=== PATIENT | male | born 1945 | race Caucasian/White ===

== ENCOUNTER → 2016-08-19 | Outpatient (CLI) | payer OTHER, MEDICARE ==
[~2016-08-19] MED LIST: ALBUAER2 INH; ASPI81TA28 PO; CHOL100040 PO; EFFSR75 PO; FLM4 PO; FLV1 PO; FRS/40 PO; LISI-787 PO; LSX40 PO; MCRK20 PO; MOME100A INH; MOME200A INH; MTH25 PO; OXGN; PANT40TA PO; POTASSIUM CHLORIDE PO; PRD20 PO; PRED10TA PO; PRED20TA2 PO; SIMV40TA4 PO; SPIR1TAB72 PO; SPIR25TA PO; SPRIN/30 INH; TIOTCAP INH; TRAZ50TA35 PO; VENL150T33 PO; VNTHFA/IN INH; ZCR40 PO
--- NOTE | 2016-08-20 06:03 | PAP/PSG TECHNICIAN REPORT ---
[facility] [employer] Polysomnogram Report Study name: None Report date: 08/20/2016 Study date: 08/19/2016 Referring Physician: Santo Kaba M.D. Name: CATERINA JUAREZ Interpreting Physician: Santo Kaba M.D. 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 Sex: Male Age: 71 StudyType: PSG Weight: 302 lbs Height: 71 years, Height 6' 1" Neck Circum:19.5inches BMI: 39.84 Medications: ASA 81mg, Dulera 200-5 mcg/act, Prednisone 1mg, and 5 mg, Simvastatin 40mg, Spiriva 40mg, Spironolactone-HCTZ 25-25mg, Sulfamethoxazole-Trimethoprin 800-160mg, [place] sulosin HCL 0.4mg, Venlafaxine HCL 75 mg, and 150mgVentolin HFA Patient History Study started on room air and bi-pap with an IPAP+83UUL2M and EPAP+8CMH2O in room #6( last study he had 3 obstructive apneas on cpap 7 and that is why I started at this setting). He has a failed split study here on 06/15/16. He was titrated to cpap +[id number] but still had an AHI of 22 and hypoxemia. His neck circ=19.5inches. Parameters Monitored NPSG: E1-M2, E2-M1, Fp1-M2, Fp2-M1, F3-M2, F4-M2, F4-M1, C3-M2, C4-M2, C4-M1, O1-M2, O2-M2, O2-M1, T3-M2, T4-M1, P3-M2, P4-M1, CHIN1, CHIN2, HR, EKG, Legs, PFLOW, SNOR, FLOW, CFLOW, Tidal Volume, THOR, ABDO, SpO2, PLTH, CPRESS, ETCO2 Wave, ETCO2, pH Sleep Architecture Sleep Stages Time at Lights Off 10:16:23 PM STAGES Time (min.) TST (%) Time at Lights On 5:47:53 AM Wake 95.5 -- Total Recording Time (TRT) 451.50 min. N1 13.5 4 Total Sleep Period (TSP) 438.5 min. N2 176.0 49 Total Sleep Time (TST) 356.0min. N3 70.5 20 Awake Time 95.5 min. REM 96.0 27 Wake after Sleep Onset 82.5 min. Sleep Efficiency (SE) 79 % Sleep Onset Latency (SANDRA) 13.0 min. Number of Stage 1 Shifts None Awakenings 11 Stage Changes 66 Number of REM periods 7 REM 96.0 27 REM Latency 51.5 min. NREM 260.0 73 Body Position Analysis Supine Right Left Side Prone Vertical Total Sleep Time (min.) 451.3 0.0 0.0 0.00 0.0 0.2 Total Sleep Time (%) 100% 0% 0% 0 0% N/A% Total Sleep Time REM (min.) 96.0 0.0 0.0 None 0.0 0.0 Total Sleep Time NREM (min.) 260.0 0.0 0.0 None 0.0 0.0 Intermittent Wake (min.) 95.3 0.0 0.0 None 0.0 0.2 Total Sleep Period (%) 100% None None None None None Arousals Myoclonus (PLM) * Events Count Index Events Count Index Spontaneous 16 3 Events Awake (PLMW) 130 81.7 Respiratory 19 3.7 Events Asleep w/ Arousal (PLMA) 9 1.5 PLM 9 2 Events Asleep w/o Arousal (PLMS) 90 15.2 Snoring 7 1 Total Asleep 99 16.7 Total 51 9 Total 229 30 Respiratory Analysis * CA OA MA CH H RERA Total Count 13 14 2 0 105 1 134 Index 2.2 2.4 0.3 0 17.7 0 22.8 Mean Duration 15.6 18.9 24.9 0.00 21.1 25.3 20.4 Longest Duration 28.0 26.9 25.1 0.00 25.1 25.3 36.6 Respiratory Event Summary Total Supine ~Supine Right Left Prone REM NREM Apneas Count 29 29 N/A N/A N/A N/A 1 28 Index 4.9 5 N/A N/A N/A N/A 1 6 Hypopneas (4% Desat) Count 105 105 N/A N/A N/A N/A 6 99 Index 17.7 17.7 N/A N/A N/A N/A 3.8 22.8 Apneas & All Hypopneas Count 134 134 N/A N/A N/A N/A 7 127 Index 22.6 23 N/A N/A N/A N/A 4.4 29.3 Respiratory Events (Consulting Services Manager+All Hyp+RERA) Count 134 135 N/A N/A N/A N/A 7 127 Index 22.8 23 N/A N/A N/A N/A 4.4 29.5 Respiratory Related Arousal Count 19 135 N/A N/A N/A N/A 3 19 Index 3.7 4 N/A N/A N/A N/A 2 4 Snoring Analysis Supine Right Left Prone REM NREM Total Snore duration 24.2 min Snores count 899 N/A N/A N/A 65 834 899 Snore mean duration 1.6 Sec Snores index 152 N/A N/A N/A 40.6 192.5 151.5 TST with snoring (%) 6.8% Desaturation Event Summary: Minimum %SpO2 Event Count Mean/Min/Max Duration(sec.) Desaturation Index % Time In Bed > 90 92 24.4 / 5.3 / 60.0 72.4 18.5 86 - 90 152 23.4 / 4.8 / 60.0 52.0 42.5 81 - 85 77 24.7 / 7.3 / 57.5 31.5 35.5 76 - 80 4 11.6 / 5.8 / 20.0 17.3 3.4 71 - 75 1 5.8 / 5.8 / 5.8 89.4 0.2 66 - 70 0 N/A 0.0 0.0 61 - 65 0 N/A 0.0 0.0 56 - 60 0 N/A 0.0 0.0 51 - 55 0 N/A 0.0 0.0 < 50 0 N/A 0.0 0.0 Total REM NREM Awake <50% 0.0 min. 0.0 min. 0.0 min. 0.0 min. 51 - 60% 0.0 min. 0.0 min. 0.0 min. 0.0 min. 61 - 70% 0.0 min. 0.0 min. 0.0 min. 0.0 min. 71 - 80% 14.5 min. 4.1 min. 9.0 min. 1.4 min. 81 - 90% 321.9 min. 61.2 min. 214.7 min. 46.0 min. 91 - 100% 76.3 min. 30.5 min. 34.1 min. 11.6 min. Average 87 88 86 88 Minimum SpO2 71 71 77 74 Desaturation Event Index 35.3 19.4 48.5 16.3 # Desat. Events below 89% 239 26 189 24 Time(%) with Saturation below 89% 68.2 13.4 46.0 8.9 Time(min.) with Saturation below 89% 281.6 55.4 189.7 36.5 Time (mins) REM (mins) NREM (mins) % of TST SpO2 Below 90% 235 31 N204 74.7 SpO2 Below 88% 83 0 0 62 Heart Rate Analysis Min (bpm) Max (bpm) Average (bpm) Awake 37 237 95 NREM 38 127 86 REM 51 110 84 Overall 38 127 85 Supplemental O2 Values Minimum O2 level: None Value Start Time End Time Farmworker Fruit Comments Mr. Juarez slept in the supine position with the head of the bed elevated. Tachycardia and some limb movements noted. No bruxism noted. PAP initiated at an IPAP of +12 CMH2O and an EPAP of +8CMH2O up-titrated to a level of: IPAP +24 CMH2O, EPAP + 14 CMH20 and a rate of 10 BPM. A large Simplus full face mask by F&P was used during titration, He awoke to use the restroom twice during the night. and awoke three times to take the mask off for a few minutes because of panic attacks. He kept adjusting the head of the bed up then down then up then down. He stated that he slept fair. The final report will be interpreted and signed by a sleep physician. The completed physician report will then be placed in the patient medical record. Therapy Event: Therapy (cm H20) 07/23 1329/03 15 1601/06 Total Time at Pressure (min.) 31.6 19.5 23.7 65.2 14.3 16.0 28.9 TST at Pressure (min.) 18.6 19.5 23.7 52.7 13.8 16.0 28.9 # Periods 1 1 1 1 1 1 1 Sleep Onset (min.) 13.0 0.0 0.0 0.0 0.0 0.0 0.0 REM Onset (min.) N/A N/A 13.4 0.0 N/A N/A N/A Sleep Efficiency % 58 100 100 80 96 100 100 Wakefulness (%) 41.1 0.0 0.0 19.2 3.5 0.0 0.0 Wakefulness (min.) 13.0 0.0 0.0 12.5 0.5 0.0 0.0 NREM 1 (%) 4.7 0.0 2.1 4.6 7.0 3.1 0.0 NREM 1 (min.) 1.5 0.0 0.5 3.0 1.0 0.5 0.0 NREM 2 (%) 54.2 81.3 0.0 17.7 89.5 96.9 21.5 NREM 2 (min.) 17.1 15.9 0.0 11.6 12.8 15.5 6.2 NREM 3 (%) 0.0 18.7 56.3 0.0 0.0 0.0 78.5 NREM 3 (min.) 0.0 3.6 13.4 0.0 0.0 0.0 22.7 REM (%) 0.0 0.0 41.6 58.5 0.0 0.0 0.0 REM (min.) 0.0 0.0 9.9 38.1 0.0 0.0 0.0 # Arousals 2 1 1 13 3 5 0 Arousal Index 6.4 3.1 2.5 14.8 13.1 18.8 0.0 # Snore 40 164 88 34 36 79 87 Snore Index 128.7 504.6 222.7 38.7 156.8 297.0 180.5 AHI 9.7 9.2 12.7 15.9 87.1 60.2 20.7 AHI Supine 9.7 9.2 12.7 15.9 87.1 60.2 20.7 AHI Non-Supine N/A N/A N/A N/A N/A N/A N/A NREM AHI 9.7 9.2 8.7 49.4 87.1 60.2 20.7 REM AHI N/A N/A 18.3 3.1 N/A N/A N/A RDI 12.9 9.2 12.7 15.9 87.1 60.2 20.7 # Obstructive 0 0 1 4 0 4 1 # Central Ap 0 1 0 1 1 1 1 # Mixed 0 0 0 0 0 2 0 # Hypopneas 3 2 4 9 19 9 8 RERAS 1 0 0 0 0 0 0 Total Respiratory Events 4 3 5 14 20 16 10 Time Below SpO2 89.00% (min.) 18.5 19.2 22.8 46.8 9.0 13.6 28.7 Mean NREM SpO2 (%) 85 85 84 85 87 86 83 Mean REM SpO2 (%) N/A N/A 82 86 N/A N/A N/A Mean Sleep SpO2 (%) 85 85 83 86 87 86 83 Min NREM SpO2 (%) 81 77 77 78 81 79 78 Min REM SpO2 (%) N/A N/A 71 79 N/A N/A N/A Position Supine (min.) 18.6 19.5 23.7 52.7 13.8 16.0 28.9 Position Non-supine (min.) 0.0 0.0 0.0 0.0 0.0 0.0 0.0 LM Index Sleep 6.4 3.1 12.7 33.0 26.1 22.6 6.2 LM Index NREM 6.4 3.1 4.3 37.1 26.1 22.6 6.2 LM Index REM N/A N/A 24.4 31.5 N/A N/A N/A Mean Heart Rate (bpm) 80 86 86 82 87 91 92 Min Heart Rate (bpm) 51 54 51 52 38 47 49 Therapy (cm H20) 04/0714 Total Time at Pressure (min.) 60.9 24.2 26.9 56.6 42.1 41.6 TST at Pressure (min.) 42.4 23.7 24.4 10.1 40.6 41.6 # Periods 1 1 1 1 1 1 Sleep Onset (min.) 0.0 0.0 0.0 0.0 0.0 0.0 REM Onset (min.) 14.8 N/A N/A N/A N/A 4.6 Sleep Efficiency % 69 97 90 17 96 100 Wakefulness (%) 30.4 2.1 9.3 82.1 3.6 0.0 Wakefulness (min.) 18.5 0.5 2.5 46.5 1.5 0.0 NREM 1 (%) 4.1 0.0 1.9 2.6 1.2 4.8 NREM 1 (min.) 2.5 0.0 0.5 1.5 0.5 2.0 NREM 2 (%) 30.5 60.8 38.6 15.2 95.2 11.2 NREM 2 (min.) 18.6 14.7 10.4 8.6 40.1 4.6 NREM 3 (%) 13.6 37.1 50.2 0.0 0.0 0.0 NREM 3 (min.) 8.3 9.0 13.5 0.0 0.0 0.0 REM (%) 21.4 0.0 0.0 0.0 0.0 84.0 REM (min.) 13.0 0.0 0.0 0.0 0.0 35.0 # Arousals 9 2 0 3 7 5 Arousal Index 12.7 5.1 0.0 17.8 10.4 7.2 # Snore 54 93 100 17 62 45 Snore Index 76.5 235.1 246.1 100.9 91.7 64.8 AHI 19.8 22.7 7.4 29.7 45.9 1.4 AHI Supine 19.8 22.7 7.4 29.7 45.9 1.4 AHI Non-Supine N/A N/A N/A N/A N/A N/A NREM AHI 24.5 22.7 7.4 29.7 45.9 9.0 REM AHI 9.2 N/A N/A N/A N/A 0.0 RDI 19.8 22.7 7.4 29.7 45.9 1.4 # Obstructive 4 0 0 0 0 0 # Central Ap 1 4 2 0 1 0 # Mixed 0 0 0 0 0 0 # Hypopneas 9 5 1 5 30 1 RERAS 0 0 0 0 0 0 Total Respiratory Events 14 9 3 5 31 1 Time Below SpO2 89.00% (min.) 40.7 21.5 9.0 1.6 11.1 2.7 Mean NREM SpO2 (%) 83 86 89 90 90 91 Mean REM SpO2 (%) 85 N/A N/A N/A N/A 92 Mean Sleep SpO2 (%) 84 86 89 90 90 92 Min NREM SpO2 (%) 77 81 84 84 81 84 Min REM SpO2 (%) 76 N/A N/A N/A N/A 87 Position Supine (min.) 42.4 23.7 24.4 10.1 40.6 41.6 Position Non-supine (min.) 0.0 0.0 0.0 0.0 0.0 0.0 LM Index Sleep 21.2 15.2 2.5 0.0 8.9 27.4 LM Index NREM 12.3 15.2 2.5 0.0 8.9 18.1 LM Index REM 41.5 N/A N/A N/A N/A 29.1 Mean Heart Rate (bpm) 91 82 86 80 82 82 Min Heart Rate (bpm) 51 51 50 48 50 51
--- NOTE | 2016-08-21 15:20 | POLYSOMNOGRAPH REPORT ---
CLINICAL DATA: A 71-year-old male with BMI of 39.84 referred for a BiPAP titration study. The patient has severe sleep apnea and had a previous attempt at a split night study which was unsuccessful. He was titrated to a CPAP pressure of 14 cm of water pressure but still had an AHI of 22 and nocturnal hypoxemia. SLEEP ARCHITECTURE: Total sleep period was 438.5 minutes. Total sleep time was 356 minutes divided between 260 minutes of non-REM sleep and 96 minutes of REM sleep. Sleep onset latency was 13 minutes. REM latency was 51.5 minutes. Sleep efficiency was 79%. Wake after sleep onset was 82.5 minutes. Sleep consisted of stage N1 4%, N2 49%, N3 20%, REM 27%. AROUSAL DATA: 51 arousals recorded for an index of 9 per hour. PLM DATA: 99 limb movements during sleep were noted for an index of 16.7 per hour with arousal index of 1.5 per hour. RESPIRATORY DATA: The AHI was 22.6. There were 13 central, 14 obstructive, and 2 mixed apneic episodes. The longest apneic episode recorded was 28 seconds. There were 105 hypopneic episodes. The longest duration of hypopnea was 25.1 seconds. OXIMETRY DATA: Nocturnal hypoxemia was seen. Oxygen adonay was 71% during REM. The mean saturation was 87%. Time below 88% was 83 minutes. EKG: Heart rates ranged from 38 to 127 beats per minute. No arrhythmias were noted. DIVING FISHER'S COMMENTS AND TREATMENT SUMMARY: The patient slept supine with head of bed elevated. He was started on BiPAP 12/8 and was eventually titrated up to an optimal level of IPAP 24, EPAP 14 with backup rate of 10 using a large Simplus full face mask by Jayant. He awoke several times and took the mask off because of panic attacks. At his final pressure setting of BiPAP 24/14, the patient slept for 41.6 minutes with an AHI of 1.4 with improvement in his nocturnal hypoxemia. IMPRESSION: Very severe sleep apnea/hypopnea corrected with BiPAP 24/14, backup rate of 10 breaths per minute with a large Simplus full face mask by Fermin. RECOMMENDATIONS: The patient will be seen back in followup and will be started on BIPAP with an attempt to maintain him at this pressure level which is quite high and often difficult to tolerate. [facility]
== END | disposition home or self-care (01) ==
LOC: C.NEUR 21:00
PROVIDERS: ATTEND Internal Medicine Pulmonary Disease
DX: G47.30 Sleep apnea, unspecified (principal)

== ENCOUNTER → 2016-08-25 | Outpatient (CLI) | payer OTHER, MEDICARE ==
[~2016-08-25] VITALS: Ht 185.4 cm; Wt 138.3 kg
[2016-08-25 16:08] VITALS: BP 138/77; PULSE 107; Ht 185.4 cm; Wt 138.3 kg
== END | disposition home or self-care (01) ==
LOC: C.NEUR 13:46
PROVIDERS: ATTEND Internal Medicine Pulmonary Disease
DX: G47.30 Sleep apnea, unspecified (principal); R06.83 Snoring; R06.81 Apnea, not elsewhere classified; G47.10 Hypersomnia, unspecified; E78.5 Hyperlipidemia, unspecified; R03.0 Elevated blood-pressure reading, without diagnosis of hypertension

== ENCOUNTER 2016-10-04 20:24 | Inpatient (IN) | payer OTHER, MEDICARE ==
[~2016-10-04] VITALS: Ht 185.4 cm; Wt 137.4 kg
[~2016-10-04 20:24] MED LIST changes: -ASPI81TA28 PO; -CHOL100040 PO; -EFFSR75 PO; -FLM4 PO; -FLV1 PO; -FRS/40 PO; -LSX40 PO; -MCRK20 PO; -MOME100A INH; -MOME200A INH; -MTH25 PO; -OXGN; -PANT40TA PO; -POTASSIUM CHLORIDE PO; -PRD20 PO; -PRED10TA PO; -SPIR1TAB72 PO; -SPIR25TA PO; -SPRIN/30 INH; -VNTHFA/IN INH; -ZCR40 PO
[2016-10-04 21:50] LABS: ALB/GLOB RATIO 0.8 (0.9-2); ALKALINE PHOSPHATASE 64 U/L (45-117); ALT/SGPT 30 U/L (12-78); BLOOD UREA NITROGEN 16 mg/dl (7-18); BUN/CREATININE RATIO 14.5 (10-20); CALCIUM 9.1 mg/dl (8.5-10.1); CARBON DIOXIDE 29 mmol/L (21-32); CHLORIDE 98 mmol/L (98-107); GLUCOSE 115 mg/dl (70-99); SODIUM 138 mmol/L (136-145)
--- NOTE | 2016-10-04 21:54 | DIAGNOSTIC IMAGING REPORT ---
CHEST ONE VIEW PORTABLE CLINICAL HISTORY: SOB dyspnea COMPARISON STUDY: 10/29/2015 FINDINGS: Mildly progressive cardia megaly. Findings of congestive heart failure. Diaphragms are smooth. Pulmonary vasculature is prominent. IMPRESSION: Congestive heart failure Electronically signed by: Cuco Ruiz M.D. 10/04/2016 9:53 PM Dictated Date/Time: 10/04/2016 9:52 PM
[2016-10-04 21:59] LABS: BASO % 0.1 %; BASO ABS # 0.02 K/uL (0-0.2); COMPLETE YES; EOS % 0.2 %; HEMATOCRIT 43.7 % (42-52); IG% 0.6 %; LYMPH % 8.1 %; LYMPH ABS # 1.09 K/uL (1.2-3.4); MEAN CELL VOLUME 92.4 fL (80-100); MEAN CORPUSCULAR HEMOGLOBIN 31.3 pg (25-34); MEAN CORPUSCULAR HGB CONC 33.9 g/dl (32-36); MEAN PLATELET VOLUME 9.4 fL (7.4-10.4); MONO % 2.1 %; NEUT % 88.9 %; PLATELET COUNT 226 K/uL (130-400); RED BLOOD COUNT 4.73 M/uL (4.7-6.1); WHITE BLOOD COUNT 13.45 K/uL (4.8-10.8)
[2016-10-04] MEDS ORDERED: VNTHFA/IN INH (22:04)
[2016-10-04] MEDS ORDERED: EFFSR75 PO (22:04)
[2016-10-04] MEDS ORDERED: MTH25 PO (22:04)
[2016-10-04] MEDS ORDERED: PRED10TA PO (22:04)
[2016-10-04] MEDS ORDERED: FLV1 PO (22:04)
[2016-10-04] MEDS ORDERED: SPIR1TAB72 PO (22:04)
[2016-10-04] MEDS ORDERED: FLM4 PO (22:04)
[2016-10-04] MEDS ORDERED: ZCR40 PO (22:04)
[2016-10-04] MEDS ORDERED: SPRIN/30 INH (22:04)
[2016-10-04] MEDS ORDERED: CHOL100040 PO (22:04)
[2016-10-04] MEDS ORDERED: MOME200A INH (22:04)
[2016-10-04 22:20] LABS: POTASSIUM 3.4 mmol/L (3.5-5.1)
[2016-10-04 22:21] LABS: INR 1.1 (0.9-1.1); PARTIAL THROMBOPLASTIN RATIO 1.1; PROTHROMBIN TIME (PATIENT) 12.2 SECONDS (9.0-12.0)
[2016-10-04] MEDS ORDERED: FUROSEMIDE 40 MG/4 ML VIAL IV STA (22:35)
[2016-10-04 22:48] LABS: MAGNESIUM 1.2 mg/dl (1.8-2.4)
--- NOTE | 2016-10-04 23:17 | EMERGENCY ROOM VISIT NOTE ---
ED Visit Note First contact with patient: 22:21 I did evaluate and examine this patient myself. I did guide management for the patient. I agree with the PA's assessment as discussed. Please see the PAs dictation for further details. I did independently review the 12-lead EKG, x- rays and blood work.
[2016-10-04] MEDS ORDERED: POTASSIUM CHLORIDE 10 MEQ TABCR PO STA ×2 (23:50→23:53)
[2016-10-04] MEDS ORDERED: MAGNESIUM SULFATE 1GM / D5W 1 GM BAG IV STA (23:53)
[2016-10-05] VITALS (9 sets, daily range): BP systolic 101–155; BP diastolic 72–104; PULSE 58–116; TEMP 36.4–36.9; O2SAT 90–94; Ht 185.4 cm; Wt 137.4 kg
[2016-10-05] MEDS ORDERED: ALBUTEROL HFA 8 GM INHALER INH PRN
[2016-10-05] MEDS ORDERED: ACETAMINOPHEN 325 MG TAB PO PRN
[2016-10-05] MEDS ORDERED: MAGNESIUM HYDROXIDE SUSP 30 ML UDC PO PRN
[2016-10-05] MEDS ORDERED: MoRPHine SULFATE 2 MG/ML CARP IV PRN
[2016-10-05] MEDS ORDERED: ONDANSETRON INJ 2 MG/ML 2 ML VIAL IV PRN
--- NOTE | 2016-10-05 00:27 | History and Physical ---
History & Physical Date & Time of Service: Oct 05, 2016 at 00:19 Chief Complaint: Copd,Ongoing Issues Primary Care Physician: Ovidio Donovan M.D. History of Present Illness Source: patient 71 y/o M with Hx HTN, HPL, Temporal Arteritis, obesity, COPD and BETINA. Pt has became progressively SOB over the past 2-3 weeks and noted increasing LE edema and weight gain as well. He is chronically SOB with exertion and uses an 02 tank PRN which he has been using with increasing frequency. He also states that he could not use his Bipap the past 2 nights since he felt like he needed 02 which he could not coadminister. His neighbor is an MD and had evaluated him at home earlier and advise him to attend the hospital. An EKG on arrival to the ER revealed AF with a rate of approximately 120-130. A CXR was consistent with new onset CHF. He denies CP, a productive cough, N/V, diaphoresis or fevers. He does not have a history of CHF or AF. He is currently being treated with prednisone and MTX for Temporal Arteritis. Past Medical/Surgical History Medical Problems: (1) Depressive disorder Status: Chronic (2) Prostate cancer Permanent Comment: Rising PSA Status post ultrasound-guided biopsy 02/17/2011 Adenocarcinoma Zachary 3+3 1 and 14 cores positive less than 5% Watchful waiting Rebiopsy 05/18/2014 reveals adenocarcinoma Jones 3+3, 1 of 14, 50% of the core Watchful waiting Rebiopsy 06/19/2014 reveals a adenocarcinoma Zachary 3+4, 8 of 13 cores positive with increased percentages up to 80% Status post hormonal suppression with 1 injection of Lupron Status post prostate seed implant 09/18/2014 received 8500 cGy, 48 seeds placed Status post external beam treatment with IMRT/IGRT completed 12/19/2014 received 4500 cGy Status: Resolved 3) HTN 4) HPL 5) Obesity 6) BETINA - on record 7) Temporal Arteritis 8) COPD Family History Cancer Social History His son states that he continues to occasionally smoke although the pt denies this Smoking Status: Former Smoker Drug Use: none Occupational Status: unemployed Multi-Drug Resistant Organisms History of MDRO: No Allergies Coded Allergies: No Known Allergies (Verified , 10/04/16) Home Medications Scheduled Albuterol Hfa (Ventolin Hfa), 2 PUFFS INH PT LIST Cholecalciferol (Vitamin D-1000), 100 UNITS PO DAILY Folic Acid (Folic Acid), 1 MG PO DAILY Hctz/Spironolactone (Spironolactone/Hydrochlor 25-25 mg), 2 TAB PO BID Methotrexate (Methotrexate), 3 TAB PO UD Mometasone Furoate-Formoterol (Dulera 200/5 Mcg), 1 PUFF INH Q12 Prednisone (Prednisone), 30 MG PO TAPER UD Simvastatin (Simvastatin), 40 MG PO DAILY Tamsulosin HCl (Tamsulosin HCl), 0.4 MG PO DAILY Tiotropium Canvas (Spiriva Handihaler), 1 PUFF INH DAILY Venlafaxine Hcl (Venlafaxine Hcl Er), 150 MG PO DAILY Venlafaxine Hcl (Effexor Extended Rel), 75 MG PO DAILY Review of Systems Constitutional: No chills, No fever, No sweats Eyes: No eye pain, No worsening of vision ENT: No hearing loss, No nasal symptoms, No unusual epistaxis Respiratory: + dyspnea at rest, + dyspnea on exertion, + shortness of breath, No cough, No sputum, No wheezing Cardiovascular: No PND, No chest pain, No orthopnea Abdomen: No nausea, No pain, No vomiting Musculoskeletal: + problem reported, + swelling Genitourinary - Male: No dysuria, No hematuria, No urinary frequency, No urinary urgency Neurologic: No memory loss, No paralysis, No weakness Psychiatric: No anhedonism, No depression symptoms Endocrine: No excessive thirst, No fatigue Hematologic / Lymphatic: No abnormal bleeding/bruising Integumentary: No itch, No rash Physical Exam Vital Signs Date Time Temp Pulse Resp B/P Pulse Ox O2 Delivery O2 Flow Rate FiO2 10/04/16 23:16 110 14 118/78 90 Nasal Cannula 2.0 10/04/16 20:52 107 10/04/16 20:30 Nasal Cannula 2.0 10/04/16 20:30 37.0 95 24 162/96 90 Room Air 10/04/16 20:28 90 Room Air General Appearance: WD/WN, no apparent distress, + pertinent finding (Pleasant overweight, elderly male in no distress) Head: normocephalic, atraumatic Eyes: normal inspection ENT: normal ENT inspection, hearing grossly normal, TMs normal, pharynx normal Neck: supple, no JVD, + pertinent finding (exam is limited due to habitus) Respiratory/Chest: + decreased breath sounds (decreased sounds at bases - no clearly audible crackles or wheezing) Cardiovascular: + irregularly irregular, + pertinent finding (faint heart sounds) Abdomen/GI: normal bowel sounds, non tender, soft Back: normal inspection, no CVA tenderness Extremities/Musculoskelatal: + pertinent finding (significant B/L edema and chronic skin changes) 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, no motor/sensory deficits, alert, normal mood/affect, normal reflexes, oriented x 3 Skin: + pertinent finding (chronic skin changes) Diagnostics Laboratory Results Results Past 24 Hours Test 10/04/16 21:00 10/04/16 21:49 10/04/16 22:15 Range/Units Sodium Level 138 136-145 mmol/L Potassium Level 3.4 3.5-5.1 mmol/L Chloride Level 98 98-107 mmol/L Carbon Dioxide Level 29 21-32 mmol/L Anion Gap 11.0 3-11 mmol/L Blood Urea Nitrogen 16 7-18 mg/dl Creatinine 1.10 0.60-1.40 mg/dl Est Creatinine Clear Calc Drug Dose 89.6 ml/min Estimated GFR () 77.3 Estimated GFR (Non- 66.7 BUN/Creatinine Ratio 14.5 10-20 Random Glucose 115 70-99 mg/dl Calcium Level 9.1 8.5-10.1 mg/dl Total Bilirubin 1.3 0.2-1 mg/dl Aspartate Amino Transf (AST/SGOT) 15 15-37 U/L Alanine Aminotransferase (ALT/SGPT) 30 12-78 U/L Alkaline Phosphatase 64 45-117 U/L Total Protein 7.3 6.4-8.2 gm/dl Albumin 3.2 3.4-5.0 gm/dl Globulin 4.1 2.5-4.0 gm/dl Albumin/Globulin Ratio 0.8 0.9-2 White Blood Count 13.45 4.8-10.8 K/uL Red Blood Count 4.73 4.7-6.1 M/uL Hemoglobin 14.8 14.0-18.0 g/dL Hematocrit 43.7 42-52 % Mean Corpuscular Volume 92.4 80-100 fL Mean Corpuscular Hemoglobin 31.3 25-34 pg Mean Corpuscular Hemoglobin Concent 33.9 32-36 g/dl Platelet Count 226 130-400 K/uL Mean Platelet Volume 9.4 7.4-10.4 fL Neutrophils (%) (Auto) 88.9 % Lymphocytes (%) (Auto) 8.1 % Monocytes (%) (Auto) 2.1 % Eosinophils (%) (Auto) 0.2 % Basophils (%) (Auto) 0.1 % Neutrophils # (Auto) 11.95 1.4-6.5 K/uL Lymphocytes # (Auto) 1.09 1.2-3.4 K/uL Monocytes # (Auto) 0.28 0.11-0.59 K/uL Eosinophils # (Auto) 0.03 0-0.5 K/uL Basophils # (Auto) 0.02 0-0.2 K/uL RDW Standard Deviation 62.0 36.4-46.3 fL RDW Coefficient of Variation 18.4 11.5-14.5 % Immature Granulocyte % (Auto) 0.6 % Immature Granulocyte # (Auto) 0.08 0.00-0.02 K/uL Prothrombin Time 12.2 9.0-12.0 SECONDS Prothromb Time International Ratio 1.1 0.9-1.1 Activated Partial Thromboplast Time 27.4 21.0-31.0 SECONDS Partial Thromboplastin Ratio 1.1 Magnesium Level 1.2 1.8-2.4 mg/dl Troponin I < 0.015 0-0.045 ng/ml Pro-B-Type Natriuretic Peptide 110 0-900 pg/ml Thyroid Stimulating Hormone (TSH) 1.100 0.300-4.500 uIu/ml Bedside Troponin I 0.000 0-0.045 ng/ml Diagnostic Radiology CXR consistent with CHF EKG AF - rate ~120 Impression Assessment and Plan 71 y/o M with Hx HTN, HPL, Temporal Arteritis, obesity and BETINA. Pt has became progressively SOB over the past few weeks and noted increasing LE edema and weight gain as well. His neighbor is an MD and had evaluated him at home earlier and advise him to attend the hospital. An EKG on arrival to the ER revealed AF with a rate of approximately 120-130. A CXR was consistent with new onset CHF. He denies CP, a productive cough, N/V, diaphoresis or fevers. He does not have a history of CHF or AF. He is currently being treated with prednisone and MTX for Temporal Arteritis. 1) CHF - may be related to undiagnosed AF and a high heart rate. Pt is receiving diuresis with TID Lasix - echo and cardio consult requested. Admitted to telemetry and will r/o an acute event with serial troponin. 2) New AF - rate is at approximately 100 without administration of related meds. We will start the pt on a low dose of B benny and titrate upward as tolerated. Full dose anticoagulation started with Heparin - can transition to Coumadin as his weight may preclude use of alternative anticoagulants. 3) Temporal Arteritis - he states that he failed a taper and has been on prednisone for 1.5 years. Will cont current dose - MTX is administered Q2wks. 4) COPD - No evidence for acute exacerbation - pt is on prednisone regardless and can cont his home inhalers. 5) BETINA - has brought his BIPAP with him which we will employ. Full code - full dose Heparin Total time for this admit including review of records, labs, EKG, med rec - discussion with Pt and ER attending - 40 min Level of Care Telemetry Resuscitation Status FULL RESUSCITATION VTE Prophylaxis VTE Risk Assessment Done? Y/N: Yes Risk Level: High Given or contraindicated: Other Anticoagulation
[2016-10-05] MEDS ORDERED: NITROGLYCERIN OINT 2% 1GM PACKET EXT STA (02:53)
[2016-10-05] MEDS ORDERED: POTASSIUM CHLORIDE 10 MEQ TABCR ONE (02:55)
[2016-10-05] MEDS ORDERED: MAGNESIUM SULFATE 1GM / D5W 1 GM BAG ONE (02:56)
[2016-10-05] MEDS ORDERED: HEPARIN SOD (PORCINE) 1000 UNIT/ML 10 ML VIAL IV ONE (03:00)
[2016-10-05] MEDS: HEPARIN 25,000 UNIT/500ML D5W 500 ML IV PRN ×2 (03:10→15:55)
[2016-10-05] MEDS ORDERED: NITROGLYCERIN OINT 2% 1GM PACKET ONE (03:18)
--- NOTE | 2016-10-05 04:05 | EMERGENCY ROOM VISIT NOTE ---
History First contact with patient: 22:21 Chief Complaint: SHORTNESS OF BREATH Stated Complaint: ACUTE CHF, ATRIAL FIBRILLATION Nursing Triage Summary: Pt reports SOB for 3 to 4 days. Pt has history of COPD. Pt saw Dr Donovan and was sent over for further evaluation. Pt does report he has had a cough for 2 weeks. History of Present Illness The patient is a 71 year old male who presents to the Emergency Room with complaints of increasing shortness of breath with weight gain and cough for the past 2 weeks. Patient was sent in by his family care doctor, Dr. Donovan who is also his next-door Neighbor. Patient states he had to increase his oxygen that he uses when necessary. Patient denies fevers, chest pain, palpitations, abdominal pain, vomiting, diarrhea. No history of atrial fibrillation or CHF. No prior heart attack. Review of Systems See HPI for pertinent positives & negatives. A total of 10 systems reviewed and were otherwise negative. Past Medical/Surgical History Medical Problems: (1) Acute CHF (congestive heart failure) (2) Atrial fibrillation (3) Depressive disorder (4) Prostate cancer Family History Cancer Social History Smoking Status: Former Smoker Alcohol Use: none Drug Use: none Housing Status: lives with family Occupation Status: unemployed Current/Historical Medications Scheduled Albuterol Hfa (Ventolin Hfa), 2 PUFFS INH PT LIST Cholecalciferol (Vitamin D-1000), 100 UNITS PO DAILY Folic Acid (Folic Acid), 1 MG PO DAILY Hctz/Spironolactone (Spironolactone/Hydrochlor 25-25 mg), 2 TAB PO BID Methotrexate (Methotrexate), 3 TAB PO UD Mometasone Furoate-Formoterol (Dulera 200/5 Mcg), 1 PUFF INH Q12 Prednisone (Prednisone), 30 MG PO TAPER UD Simvastatin (Simvastatin), 40 MG PO DAILY Tamsulosin HCl (Tamsulosin HCl), 0.4 MG PO DAILY Tiotropium [place] (Spiriva Handihaler), 1 PUFF INH DAILY Venlafaxine Hcl (Venlafaxine Hcl Er), 150 MG PO DAILY Venlafaxine Hcl (Effexor Extended Rel), 75 MG PO DAILY Allergies Coded Allergies: No Known Allergies (Verified , 10/04/16) Physical Exam Vital Signs Date Time Temp Pulse Resp B/P Pulse Ox O2 Delivery O2 Flow Rate FiO2 10/04/16 23:16 110 14 118/78 90 Nasal Cannula 2.0 10/04/16 20:52 107 10/04/16 20:30 Nasal Cannula 2.0 10/04/16 20:30 37.0 95 24 162/96 90 Room Air 10/04/16 20:28 90 Room Air Physical Exam VITALS: Vitals are noted on the nurse's note and reviewed by myself. Vital signs tachycardic and hypoxic GENERAL: Pleasant male, in no acute distress, nondiaphoretic, well-developed well-nourished. SKIN: The skin was without rashes, or bruising. There is no tenting of the skin. Capillary reflex less than 2 seconds. HEAD: Normocephalic atraumatic. EARS: External auditory canals clear, tympanic membranes pearly jose without erythema or effusion bilaterally. EYES: Pupils equal round and reactive to light and accommodation. Conjunctivae without injection, sclerae without icterus. Extraocular movements intact. NOSE: Patent, turbinates without inflammation or discharge. MOUTH: Mucous membranes moist. Pharynx without erythema or exudate. Uvula midline. Airway patent. Tongue does not deviate. NECK: Supple without nuchal rigidity. No lymphadenopathy. No thyromegaly. Cervical spine is nontender. No JVD. HEART: Irregularly irregular LUNGS: Clear to auscultation bilaterally without wheezes, rales or rhonchi. No dullness to percussion. No retractions or accessory muscle use. ABDOMEN: Positive bowel sounds x 4. Normal tympanic percussion. Soft, protuberant, obese, nontender, without masses or organomegaly. Pink sign negative. No guarding or rebound tenderness. MUSCULOSKELETAL: No muscle atrophy noted. +2 pitting edema bilaterally to the lower extremities NEURO: Patient was alert and oriented to person place and time. Normal sensation to light and sharp touch. No focal neurological deficits. Medical Decision & Procedures Laboratory Results 10/04/16 21:49 Red Blood Count 4.73, Mean Corpuscular Volume 92.4, Mean Corpuscular Hemoglobin 31.3, Mean Corpuscular Hemoglobin Concent 33.9, Mean Platelet Volume 9.4, Neutrophils (%) (Auto) 88.9, Lymphocytes (%) (Auto) 8.1, Monocytes (%) (Auto) 2.1, Eosinophils (%) (Auto) 0.2, Basophils (%) (Auto) 0.1, Neutrophils # (Auto) 11.95, Lymphocytes # (Auto) 1.09, Monocytes # (Auto) 0.28, Eosinophils # (Auto) 0.03, Basophils # (Auto) 0.02 10/04/16 21:00 10/04/16 21:49 Test 10/04/16 21:00 10/04/16 21:49 10/04/16 22:15 Anion Gap 11.0 mmol/L (3-11) Est Creatinine Clear Calc Drug Dose 89.6 ml/min Estimated GFR () 77.3 Estimated GFR (Non- 66.7 BUN/Creatinine Ratio 14.5 (10-20) Calcium Level 9.1 mg/dl (8.5-10.1) Total Bilirubin 1.3 mg/dl (0.2-1) Alanine Aminotransferase (ALT/SGPT) 30 U/L (12-78) Alkaline Phosphatase 64 U/L (45-117) Total Protein 7.3 gm/dl (6.4-8.2) Albumin 3.2 gm/dl (3.4-5.0) Globulin 4.1 gm/dl (2.5-4.0) Albumin/Globulin Ratio 0.8 (0.9-2) White Blood Count 13.45 K/uL (4.8-10.8) Red Blood Count 4.73 M/uL (4.7-6.1) Hemoglobin 14.8 g/dL (14.0-18.0) Hematocrit 43.7 % (42-52) Mean Corpuscular Volume 92.4 fL (80-100) Mean Corpuscular Hemoglobin 31.3 pg (25-34) Mean Corpuscular Hemoglobin Concent 33.9 g/dl (32-36) Platelet Count 226 K/uL (130-400) Mean Platelet Volume 9.4 fL (7.4-10.4) Neutrophils (%) (Auto) 88.9 % Lymphocytes (%) (Auto) 8.1 % Monocytes (%) (Auto) 2.1 % Eosinophils (%) (Auto) 0.2 % Basophils (%) (Auto) 0.1 % Neutrophils # (Auto) 11.95 K/uL (1.4-6.5) Lymphocytes # (Auto) 1.09 K/uL (1.2-3.4) Monocytes # (Auto) 0.28 K/uL (0.11-0.59) Eosinophils # (Auto) 0.03 K/uL (0-0.5) Basophils # (Auto) 0.02 K/uL (0-0.2) RDW Standard Deviation 62.0 fL (36.4-46.3) RDW Coefficient of Variation 18.4 % (11.5-14.5) Immature Granulocyte % (Auto) 0.6 % Immature Granulocyte # (Auto) 0.08 K/uL (0.00-0.02) Prothrombin Time 12.2 SECONDS (9.0-12.0) Prothromb Time International Ratio 1.1 (0.9-1.1) Activated Partial Thromboplast Time 27.4 SECONDS (21.0-31.0) Partial Thromboplastin Ratio 1.1 Magnesium Level 1.2 mg/dl (1.8-2.4) Aspartate Amino Transf (AST/SGOT) 15 U/L (15-37) Troponin I < 0.015 ng/ml (0-0.045) Pro-B-Type Natriuretic Peptide 110 pg/ml (0-900) Thyroid Stimulating Hormone (TSH) 1.100 uIu/ml (0.300-4.500) Bedside Troponin I 0.000 ng/ml (0-0.045) Medications Administered Medications (Trade) Dose Ordered Sig/Simon Route Start Time Stop Time Status Last Admin Dose Admin Furosemide (Lasix Inj) 40 mg NOW STAT IV 10/04/16 22:35 10/04/16 22:36 DC 10/04/16 23:12 40 MG Magnesium Sulfate (Magnesium Sulfate) 2 gm NOW STAT IV 10/04/16 23:53 10/05/16 00:03 DC 10/05/16 03:07 2 GM Potassium Chloride (Klor-Con M10) 10 meq NOW STAT PO 10/04/16 23:53 10/05/16 00:03 DC 10/05/16 03:06 10 MEQ Heparin Sodium/ Dextrose 1 ea NOW STAT N/A 10/04/16 23:50 10/05/16 00:59 DC 10/05/16 03:05 1 EA Potassium Chloride (Klor-Con M10) 40 meq NOW STAT PO 10/04/16 23:50 10/05/16 00:58 DC 10/05/16 03:06 40 MEQ ED Course Prior records/ancillary studies reviewed. Triage Nursing notes reviewed. Additional history obtained from the family. The patient's history was concerning for respiratory difficulties. Differential diagnosis: Etiologies such as infections, reactive airway disease, pneumonia, pneumothorax , COPD, CHF, cardiac ischemia, pulmonary embolism, musculoskeletal, gastrointestinal, as well as others were entertained. Physical examination: As above. ER treatment provided: Lasix On reassessment the patient felt better. Diagnostic interpretation by me: The electrocardiogram was a regular irregular with no acute ST-T wave changes, ventricular rate of 124. Impression atrial fibrillation interpreted by myself which is new per chart review. The labs revealed negative troponin. Lab leukocytosis. Patient is on chronic prednisone for temporal arteritis. Low magnesium and this is replaced intravenously Imaging studies: Chest x-ray as above. CHEST ONE VIEW PORTABLE CLINICAL HISTORY: SOB dyspnea COMPARISON STUDY: 10/29/2015 FINDINGS: Mildly progressive cardia megaly. Findings of congestive heart failure. Diaphragms are smooth. Pulmonary vasculature is prominent. IMPRESSION: Congestive heart failure Electronically signed by: Cuco Ruiz M.D. Consultation: A consultation was placed with Dr Christianson [facility]. The case was discussed and diagnostics were reviewed. The patient was evaluated in the ER for further treatment. This appears to be consistent with new-onset a fibrillation with CHF. Patient was given Lasix. He was still hypoxic. He was placed on oxygen. He' ll be evaluated by medicine for her new onset and try fibrillation and CHF. Patient was reassessed multiple times. Please see the hospitalist dictation for further information regarding the treatment plan. By the evaluation outlined above emergent etiologies such as cardiac ischemia, pulmonary embolism , reactive airway disease, pneumonia, pneumothorax, musculoskeletal, serious bacterial infections, as well as others were deemed relatively unlikely. The pt informed about the findings as listed above. All questions were answered and pleased with the treatment. Case reviewed with my attending Medical Decision As above Impression Primary Impression: Acute CHF (congestive heart failure) Additional Impressions: Atrial fibrillation Hypoxia Shortness of breath Hypomagnesemia Departure Information Dispostion Being Evaluated By Hospitalist Condition FAIR Referrals Ovidio Donovan M.D. (PCP) Patient Instructions My [facility] Problem Qualifiers Primary Impression: Acute CHF (congestive heart failure) Congestive heart failure type: unspecified congestive heart failure type Qualified Codes: I50.9 - Heart failure, unspecified Additional Impressions: Atrial fibrillation Atrial fibrillation type: unspecified Qualified Codes: I48.91 - Unspecified atrial fibrillation
--- NOTE | 2016-10-05 06:53 | DIAGNOSTIC IMAGING REPORT ---
BILATERAL LOWER EXTREMITY VENOUS DOPPLER CLINICAL HISTORY: Bilateral leg swelling. COMPARISON STUDY: Bilateral lower extremity venous Doppler October 29, 2015. TECHNIQUE: Sonography of the deep venous system of the bilateral lower extremities was performed. Compression and augmentation were evaluated. FINDINGS: The bilateral common femoral, superficial femoral and popliteal veins were compressible. Augmentation was normal. Flow was shown within the deep calf vessels. Note was made of lower extremity edema within each calf. In addition, there was a 5.4 x 1.7 x 2.9 cm hypoechoic abnormality within the medial right calf. This contained no color flow. IMPRESSION: 1. No evidence of deep venous thrombus within the bilateral lower extremities. 2. 5.4 x 1.7 x 2.9 cm hypoechoic abnormality within the medial right calf. The sonographic appearance is nonspecific and differential considerations include a hematoma or complex cyst. An abscess could appear similar although is considered less likely unless clinical evidence for an infectious process. A follow-up ultrasound in one month is recommended. Electronically signed by: Asher Mcpherson M.D. 10/05/2016 6:51 AM Dictated Date/Time: 10/05/2016 6:48 AM
[2016-10-05] MEDS: DULERA~ORDER AWAITING ACTION SCH ×3 (08:00→23:51)
[2016-10-05] MEDS: FUROSEMIDE INJ 20 MG in SYRINGE 0 ML IV SCH ×2 (09:00→21:11)
[2016-10-05] MEDS: SIMVASTATIN 40 MG TAB PO SCH (09:34)
[2016-10-05] MEDS: VENLAFAXINE HCL XR 150 MG CAPXR PO SCH (09:34)
[2016-10-05] MEDS: CHOLECALCIFEROL 1000 INTER.UNIT TAB PO SCH (09:34)
[2016-10-05] MEDS: TAMSULOSIN HCL 0.4 MG CAP PO SCH (09:34)
[2016-10-05] MEDS: NITROGLYCERIN OINT 2% 1GM PACKET EXT SCH ×4 (09:35→23:40)
[2016-10-05] MEDS: POTASSIUM CHLORIDE 10 MEQ TABCR PO SCH ×2 (09:36→18:49)
[2016-10-05] MEDS: TIOTROPIUM BROMIDE 5 PUFF/90 MCG INH INH SCH (09:36)
[2016-10-05] MEDS: VENLAFAXINE HCL XR 75 MG CAPXR PO SCH (09:36)
[2016-10-05 10:10] LABS: PARTIAL THROMBOPLASTIN RATIO 2.2
[2016-10-05] MEDS: METOPROLOL TARTRATE 25 MG TAB PO SCH ×2 (14:06→21:11)
[2016-10-05] MEDS ORDERED: FUROSEMIDE INJ 40 MG in SYRINGE 0 ML IV ONE (14:40)
--- NOTE | 2016-10-05 19:57 | ECHOCARDIOGRAM REPORT ---
*NOTICE TO RECEIVING LIBERTARIAN AGENCY This information is strictly Confidential and protected under [place] law. [place] law prohibits you from making any further disclosure of this information unless further disclosure is expressly permitted by the written consent of the person to whom it pertains or is authorized by law. A general authorization for the release of medical or other information is not sufficient for this purpose. Hospital accepts no responsibility if the information is made available to any other person, INCLUDING THE PATIENT. Interpretation Summary * Name: CATERINA GUIDRY Study Date: 10/05/2016 08:28 AM BP: 141/104 mmHg * Patient Location: ED HR: 108 * : 1945 (M/d/yyyy) Gender: Male Height: 73 in * Age: 71 yrs Ethnicity: CA Weight: 310 lb * Ordering Physician: ADELAIDE SIMMONS MD * Performed By: Kathleen Brewer RCS * * Reason For Study: A-FIB / ACUTE CHF * BSA: 2.6 m2 * Normal biventricular systolic function. * Moderate concentric left ventricular hypertrophy. * Mild left atrial dilatation. * No significant valvular abnormalities noted. * The study was technically difficult. Procedure Details * A complete two-dimensional transthoracic echocardiogram was performed (2D, M-mode, Doppler and color flow Doppler). * The study was technically difficult. * There were technical limitations due to patient'sPoor acoustic windows secondary to severe lung disease. * A contrast injection of Definity was performed to improve assessment of LV function. * Contrast was injected into an intravenous site in the left arm. * One vial of Definity ultrasound contrast was diluted in normal saline to a total volume of 10 ml. A total of '2' ml of solution was administered during imaging. * Lot # [id number] of Definity utilized for procedure. * Expiration date 1 OCT 03. * The attending nurse who injected the contrast agent was DAFNE HIGHTOWER RN. Left Ventricle * The left ventricle is normal in size. * There is moderate concentric left ventricular hypertrophy. * Left ventricular systolic function is normal. * Ejection Fraction = 55-60%. * No regional wall motion abnormalities noted. Right Ventricle * The right ventricle is not well visualized. * The right ventricular systolic function is normal. Atria * The left atrium is mildly dilated. * Right atrium not well visualized. Mitral Valve * The mitral valve is not well visualized. * Significant mitral regurgitation is absent. Tricuspid Valve * The tricuspid valve is not well visualized. * Significant tricuspid regurgitation is absent. Aortic Valve * The aortic valve is not well visualized. * There is no significant aortic regurgitation. Pulmonic Valve * The pulmonic valve is not well visualized. Great Vessels * The aortic root is normal size. * Normal inferior vena cava diameter and respiratory variation suggests normal central venous pressure. MMode 2D Measurements and Calculations IVSd 1.5 cm IVSs 2.0 cm LVIDd 3.3 cm LVIDs 2.3 cm LVPWd 1.5 cm LVPWs 1.4 cm IVS/LVPW 1.0 FS 30.4 % EDV(Teich) 43.9 ml ESV(Teich) 18.0 ml EF(Teich) 59.1 % EDV(cubed) 35.7 ml ESV(cubed) 12.0 ml EF(cubed) 66.3 % % IVS thick 29.3 % % LVPW thick -5.88 % LV mass(C)d 178.9 grams LV mass(C)dI 69.0 grams/m\S\2 LV mass(C)s 141.6 grams LV mass(C)sI 54.6 grams/m\S\2 SV(Teich) 26.0 ml SI(Teich) 10.0 ml/m\S\2 SV(cubed) 23.7 ml SI(cubed) 9.1 ml/m\S\2 Ao root diam 3.4 cm Ao root area 8.9 cm\S\2 LA dimension 4.3 cm LA/Ao 1.3 Doppler Measurements and Calculations MV E max rosa 108.4 cm/sec MV P1/2t max rosa 121.2 cm/sec MV P1/2t 52.0 msec MVA(P1/2t) 4.2 cm\S\2 MV dec slope 682.4 cm/sec\S\2 MV dec time 0.14 sec Ao V2 max 84.7 cm/sec Ao max PG 2.9 mmHg Ao max PG (full) 0.36 mmHg LV V1 max PG 2.5 mmHg LV V1 max 79.2 cm/sec
[2016-10-06] VITALS (7 sets, daily range): BP systolic 68–176; BP diastolic 45–89; PULSE 58–99; TEMP 36.6–36.9; O2SAT 91–94
[2016-10-06] MEDS: ALUMINUM/MAGNESIUM/SIMETH (MAALOX MAX) 30 ML UDC PO PRN (04:09)
[2016-10-06] MEDS: NITROGLYCERIN OINT 2% 1GM PACKET EXT SCH ×3 (05:42→18:00)
[2016-10-06] MEDS: HEPARIN 25,000 UNIT/500ML D5W 500 ML IV PRN (06:13)
[2016-10-06 07:22] LABS: HEMATOCRIT 42.1 % (42-52); MEAN CELL VOLUME 95.7 fL (80-100); MEAN CORPUSCULAR HEMOGLOBIN 32.3 pg (25-34); MEAN CORPUSCULAR HGB CONC 33.7 g/dl (32-36); MEAN PLATELET VOLUME 9.8 fL (7.4-10.4); PLATELET COUNT 215 K/uL (130-400); WHITE BLOOD COUNT 14.24 K/uL (4.8-10.8)
[2016-10-06 07:54] LABS: PARTIAL THROMBOPLASTIN RATIO 2.1
[2016-10-06] MEDS: DULERA~ORDER AWAITING ACTION SCH ×3 (08:00→23:32)
[2016-10-06] MEDS: POTASSIUM CHLORIDE 10 MEQ TABCR PO SCH ×2 (08:25→17:02)
[2016-10-06] MEDS: TAMSULOSIN HCL 0.4 MG CAP PO SCH (08:25)
[2016-10-06] MEDS: SIMVASTATIN 40 MG TAB PO SCH (08:26)
[2016-10-06] MEDS: CHOLECALCIFEROL 1000 INTER.UNIT TAB PO SCH (08:26)
[2016-10-06] MEDS: VENLAFAXINE HCL XR 150 MG CAPXR PO SCH (08:26)
[2016-10-06] MEDS: METOPROLOL TARTRATE 25 MG TAB PO SCH ×2 (08:27→14:20)
[2016-10-06] MEDS: FUROSEMIDE INJ 20 MG in SYRINGE 0 ML IV SCH (08:28)
[2016-10-06] MEDS: VENLAFAXINE HCL XR 75 MG CAPXR PO SCH (08:28)
[2016-10-06] MEDS ORDERED: FUROSEMIDE INJ 40 MG in SYRINGE 0 ML IV SCH (09:00)
[2016-10-06] MEDS ORDERED: LISINOPRIL 10 MG TAB PO SCH (09:00)
[2016-10-06] MEDS: TIOTROPIUM BROMIDE 5 PUFF/90 MCG INH INH SCH (09:00)
--- NOTE | 2016-10-06 09:34 | Clinical Documentation Query ---
CLINICAL DOCUMENTATION QUERY 71 year old male who presents to the Emergency Room with complaints of increasing shortness of breath with weight gain and cough In your clinical opinion is this patient being managed for: ( ) Acute diastolic (preserved EF) CHF in setting of AFib RVR treated with rate control and IV Lasix ( ) Other explanation of clinical findings (Please Explain) ( ) Unable to determine (Please Define) ( ) Need to Discuss (X ) Not Agree The medical record reflects the following clinical findings, treatment, and risk factors. Clinical Indicators: Tachycardia 100's, RA hypoxia of 90%, CXR reading CHF, and Echo showing normal EF 5-60%. Treatment: IV Lasix, Lopressor, I/O's, daily weights, Risk Factors: Age, HTN, and AFIB with RVR Please clarify and document your clinical opinion in the progress notes and discharge summary. Terms such as "probable", "suspected", "likely", "questionable", "possible", or "still to be ruled out" are acceptable. IF IN AGREEMENT, YOU MUST DOCUMENT ABOVE DIAGNOSTIC STATEMENT IN DAILY PROGRESS NOTES AND DISCHARGE SUMMARY. This document is not part of the patient's record. Thank You, Davis Ashley, RN [phone]
--- NOTE | 2016-10-06 13:59 | Progress Note ---
Subjective Date of Service: Oct 06, 2016. Subjective Pt evaluation today including: conversation w/ patient, physical exam, chart review, lab review, review of studies, review of inpatient medication list Problem List Medical Problems: (1) Hypomagnesemia Status: Acute (2) Hypoxia Status: Acute (3) Shortness of breath Status: Acute Review of Systems Constitutional: No chills, No fever Respiratory: + cough, + dyspnea on exertion, + shortness of breath, No sputum, No wheezing Cardiac: + edema, No chest pain, No orthopnea Abdomen: No constipation, No diarrhea, No nausea, No pain, No vomiting Musculoskeletal: No joint pain, No muscle pain Male : No dysuria, No urinary frequency Objective Vital Signs Date Time Temp Pulse Resp B/P Pulse Ox O2 Delivery O2 Flow Rate FiO2 10/06/16 12:53 Nasal Cannula 3.0 10/06/16 12:03 36.6 70 18 120/71 91 4.0 10/06/16 08:20 Nasal Cannula 3.0 10/06/16 07:21 36.6 58 20 176/68 94 4.0 10/06/16 04:00 36.7 93 20 141/89 91 Nasal Cannula 4.0 10/06/16 04:00 Nasal Cannula 3.0 10/06/16 00:17 Nasal Cannula 3.0 10/05/16 23:13 36.4 58 16 139/90 92 Nasal Cannula 4.0 10/05/16 20:00 90 Nasal Cannula 3.0 10/05/16 19:44 36.7 99 18 143/77 93 Nasal Cannula 4.0 10/05/16 16:00 90 Nasal Cannula 3.0 10/05/16 15:40 36.7 111 20 141/84 90 Nasal Cannula 4.0 10/05/16 14:05 36.4 87 16 146/79 91 Nasal Cannula 3.0 Physical Exam General Appearance: WD/WN, no apparent distress Neck: supple, no adenopathy Respiratory/Chest: + decreased breath sounds, + wheezing Cardiovascular: regular rate, rhythm, no gallop Abdomen: non tender, soft Neurologic/Psychiatric: alert, oriented x 3 Laboratory Results Last 24 Hours Test 10/05/16 18:45 10/06/16 07:08 Troponin I < 0.015 ng/ml White Blood Count 14.24 K/uL Red Blood Count 4.40 M/uL Hemoglobin 14.2 g/dL Hematocrit 42.1 % Mean Corpuscular Volume 95.7 fL Mean Corpuscular Hemoglobin 32.3 pg Mean Corpuscular Hemoglobin Concent 33.7 g/dl RDW Standard Deviation 63.1 fL RDW Coefficient of Variation 18.4 % Platelet Count 215 K/uL Mean Platelet Volume 9.8 fL Activated Partial Thromboplast Time 54.4 SECONDS Partial Thromboplastin Ratio 2.1 Assessment and Plan 71 y/o M with Hx HTN, HPL, Temporal Arteritis, obesity and BETINA. Pt has became progressively SOB over the past few weeks and noted increasing LE edema and weight gain as well. His neighbor is an MD and had evaluated him at home earlier and advise him to attend the hospital. He does not have a history of CHF or AF. He is currently being treated with prednisone and MTX for Temporal Arteritis. SOB - Pt is receiving diuresis with TID Lasix - Admitted to telemetry, trops x 3 sets neg, ECHO 55-60% EF, no WMA. Likely COPD exab in addition to idiopathic edema, will hopefully convert to PO lasix in next 24 hrs. Temporal Arteritis - he states that he failed a taper and has been on prednisone for 1.5 years. Will cont current dose - MTX is administered Q2wks. COPD - Pt is on prednisone regardless and can cont his home inhalers in addition to BiPAP BETINA - has brought his BIPAP with him which we will employ. Pt is FULL CODE
[2016-10-06] MEDS: HEPARIN SOD 5000 UNIT/0.5 ML CARP SQ SCH ×2 (14:00→21:08)
[2016-10-06] MEDS ORDERED: NURSING VERBAL MED ORDER ONE ×2 (16:15→17:15)
[2016-10-06] MEDS ORDERED: SODIUM CHLORIDE 0.9% 500ML 500 ML IV ONE ×2 (16:15→17:15)
[2016-10-06] MEDS ORDERED: SODIUM CHLORIDE 0.45% 1000ML 1,000 ML IV ONE (17:15)
[2016-10-07] MEDS: HEPARIN SOD 5000 UNIT/0.5 ML CARP SQ SCH ×2 (06:20→13:07)
[2016-10-07 07:28] VITALS: BP 100/65; PULSE 82; TEMP 36.8; O2SAT 92
[2016-10-07] MEDS ORDERED: FUROSEMIDE 40 MG TAB PO SCH ×2 (08:00→17:00)
[2016-10-07] MEDS: TAMSULOSIN HCL 0.4 MG CAP PO SCH (08:53)
[2016-10-07] MEDS: CHOLECALCIFEROL 1000 INTER.UNIT TAB PO SCH (08:53)
[2016-10-07] MEDS: DULERA~ORDER AWAITING ACTION SCH ×3 (08:54→23:34)
[2016-10-07] MEDS: POTASSIUM CHLORIDE 10 MEQ TABCR PO SCH ×2 (08:54→16:37)
[2016-10-07] MEDS: VENLAFAXINE HCL XR 75 MG CAPXR PO SCH (08:55)
[2016-10-07] MEDS: SIMVASTATIN 40 MG TAB PO SCH (08:56)
[2016-10-07] MEDS: VENLAFAXINE HCL XR 150 MG CAPXR PO SCH (08:56)
[2016-10-07] MEDS: POLYETHYLENE (MIRALAX) 17 GM PACK PO PRN (09:03)
[2016-10-07 09:50] LABS: BASO % 0.2 %; BASO ABS # 0.03 K/uL (0-0.2); COMPLETE YES; EOS % 0.8 %; HEMATOCRIT 42.4 % (42-52); IG% 0.9 %; MEAN CELL VOLUME 97.2 fL (80-100); MEAN CORPUSCULAR HEMOGLOBIN 31.7 pg (25-34); MEAN CORPUSCULAR HGB CONC 32.5 g/dl (32-36); MONO % 3.3 %; NEUT % 80.8 %; PLATELET COUNT 227 K/uL (130-400); RED BLOOD COUNT 4.36 M/uL (4.7-6.1); WHITE BLOOD COUNT 12.86 K/uL (4.8-10.8)
[2016-10-07 10:23] LABS: BUN/CREATININE RATIO 21.5 (10-20); CALCIUM 8.4 mg/dl (8.5-10.1); CREATININE 1.6 mg/dl (0.60-1.40); POTASSIUM 3.6 mmol/L (3.5-5.1)
[2016-10-07 11:19] VITALS: O2SAT 81
[2016-10-07] MEDS: ALUMINUM/MAGNESIUM/SIMETH (MAALOX MAX) 30 ML UDC PO PRN (11:47)
[2016-10-07] MEDS: TIOTROPIUM BROMIDE 5 PUFF/90 MCG INH INH SCH (12:00)
[2016-10-07] MEDS ORDERED: PANTOprazole SOD 40 MG TAB PO ONE (12:00)
--- NOTE | 2016-10-07 15:14 | Pulmonary Consultation ---
History General Date of Service: Oct 07, 2016. Stated Complaint: Acute Chf, Atrial Fibrillation HPI The patient is a 71 year old male who presents to [facility] with complaints of Acute Chf, Atrial Fibrillation. The patient's primary care provider is Ovidio Donovan M.D.. 71-year-old male admitted to 1917 for acute CHF exacerbation with new onset atrial fibrillation. Patient also has a significant history of moderately severe COPD, severe sleep apnea on BiPAP , temporal arteritis and morbid obesity. The patient has been experiencing increasing shortness of breath and bilateral lower extremity edema over the past 3-4 weeks. He denies during that period of time, productive cough, cardiac chest pain, pleurisy, fever, chills or hemoptysis. On the day of his admission patient was advised by his next her neighbor to present to the emergency room where he was noted to be in new onset atrial fibrillation with a rate control. Due to this pulmonary consult was obtained. Echocardiogram 10/04/16 LV: LVH, EF=55-60% RV: Ventricular systolic pressure estimated to be within normal limits LA: Dilated Outpatient pulmonary medications 1. Dulera 200-5 MCG/ACT 2 puffs twice per day 2. PredniSONE 1 MG Oral Tablet; TAKE DIRECTED; 3. PredniSONE 5 MG Oral Tablet; TAKE 1 TABLET DAILY; 4. Spiriva HandiHaler 18 MCG Inhalation Capsule; INHALE CONTENTS OF 5. Sulfamethoxazole-Trimethoprim 800-160 MG Oral M,W,F 6. Ventolin HFA 108 (90 Base) when Pulmonary function test for 2014 FEV1/FVC: 67 FEV1: 2.16/57%----- no significant reversibility FVC: 3.24/65%----- no significant reversibility Historian: patient, caregiver, EMS Review of Systems Constitutional: reports: weakness Eyes: reports: no symptoms ENT: reports: no symptoms Cardiovascular: reports: chest tightness Respiratory: reports: CONSTANTINO, shortness of breath Gastrointestinal: reports: no symptoms Genitourinary - Male: reports: no symptoms Musculoskeletal: reports: myalgias Neurologic: reports: no symptoms Psychiatric: reports: no symptoms Endocrine: no symptoms Hematologic / Lymphatic: no symptoms Allergic / Immunologic: no symptoms Past Medical History Past Medical History: (1)Depressive disorder (2)Prostate cancer a.Rising PSA b.Status post ultrasound-guided biopsy 02/17/2011 c.Adenocarcinoma Delong 3+3 1 and 14 cores positive less than 5% d.Rebiopsy 05/18/2014 reveals adenocarcinoma Delong 3+3, 1 of 14, 50% of the core e.Rebiopsy 06/19/2014 reveals a adenocarcinoma Zachary 3+4, 8 of 13 cores positive with increased percentages up to 80% f.Status post hormonal suppression with 1 injection of Lupron g.Status post prostate seed implant 09/18/2014 received 8500 cGy, 48 seeds placed h.Status post external beam treatment with IMRT/IGRT completed 12/19/2014 received 4500 cGy (3)HTN (4)HPL (5)Obesity (6)Sever BETINA BIPAP: with humidification and a backup rate of 10 breaths per minute (7)Temporal Arteritis a.On chronic low-dose steroids (8)Alcoholism (9)Moderately Sever COPD a.One pack per day greater than 30 years quit one year prior Past Surgical History: (1)Temporal artery biopsy (2)Foot surgery (3)Shoulder surgery (4)Tonsillectomy Family History Cancer #1 prostate carcinoma #2 breast carcinoma #3 hypercholesterolemia Social History Denied: History of current Alcohol Use Current every day smoker Denied: History of Drug Use Marital History - Once 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 Hx Tobacco Use In Past Year?: No Smoking Status: Former Smoker Occupational Status: unemployed History of MDRO History of MDRO: No Allergies Coded Allergies: No Known Allergies (Verified , 10/04/16) Current Medications Reported Home Medications Medications Dose Route/Sig Max Daily Dose Days Date Category Dose Instructions Vitamin D-1000 (Cholecalciferol) 1,000 Unit Tab 100 Units PO DAILY 10/04/16 Reported Folic Acid 1 Mg Tab 1 Mg PO DAILY 10/04/16 Reported Prednisone 10 Mg Tab 30 Mg PO TAPER UD 10/04/16 Reported Methotrexate 2.5 Mg Tab 3 Tab PO UD 10/04/16 Reported WITH LUNCH & DINNER Tamsulosin HCl 0.4 Mg Cap 0.4 Mg PO DAILY 10/04/16 Reported Spironolactone/Hydrochlor 25-25 mg (HCTZ/Spironolactone) 1 Ea Tab 2 Tab PO BID 10/04/16 Reported Effexor Extended Rel (Venlafaxine Hcl) 75 Mg Capcr 75 Mg PO DAILY 10/04/16 Reported Simvastatin 40 Mg Tab 40 Mg PO DAILY 10/04/16 Reported Ventolin Hfa (Albuterol) 200 Puffs/37364 Mcg Aers 2 Puffs INH PT LIST 10/04/16 Reported Spiriva Handihaler (Tiotropium S[place]) 30 Puff/540 Mcg Aerp 1 Puff INH DAILY 10/04/16 Reported Dulera 200/5 Mcg (Mometasone Furoate-Formoterol) 1 Aer Aer 1 Puff INH Q12 10/04/16 Reported Venlafaxine Hcl Er (Venlafaxine Hcl) 150 Mg Tab 150 Mg PO DAILY 04/01/14 Reported Physical Physical Exam Vital Signs: Date Time Temp Pulse Resp B/P Pulse Ox O2 Delivery O2 Flow Rate FiO2 10/07/16 11:19 81 Room Air 10/07/16 09:00 Nasal Cannula 3.0 10/07/16 07:28 36.8 82 18 100/65 92 Nasal Cannula 3.0 10/07/16 00:00 Nasal Cannula 3.0 10/06/16 22:30 36.6 87 18 104/58 93 2.0 10/06/16 20:47 Nasal Cannula 3.0 10/06/16 19:45 36.9 75 20 103/57 93 Nasal Cannula 3.0 10/06/16 16:46 85/46 10/06/16 16:01 36.6 99 20 80/46 92 Nasal Cannula 3.0 68/45 80/48 80/46 General Appearance: mild distress Head: NORMOCEPHALIC, ATRAUMATIC Eyes: PERRLA, NO DISCHARGE, EOMI, SCLERAE NORMAL, CONJUNCTIVAE NORMAL ENT: NORMAL EAR EXAM, NORMAL NASAL EXAM, NORMAL MOUTH EXAM, NORMAL THROAT EXAM , NORMAL DENTAL EXAM Neck: NORMAL RANGE OF MOTION, NO TENDERNESS, TRACHEA MIDLINE, NO STRIDOR Respiratory: other (bilateral crackles greatest at the bases) Cardiovasular: REGULAR RATE/RHYTHM, NORMAL S1S2, other (thoracic ultrasound showed bilateral B-lines even at the apices) Abdomen: NON TENDER, NORMAL BOWEL SOUNDS, NO REBOUND, NO MASSES, NO GUARDING Genitourinary - Male: EXTERNAL GENITALIA NORMAL Back: NORMAL INSPECTION, NO MIDLINE TENDERNESS, NO CVA TENDERNESS, NO PARAVERTEBRAL TTP Upper Extremities: NO EDEMA, NO DEFORMITY, NORMAL ROM Lower Extremities: edema Edema: Bilateral LE (3+) Pulses: carotid (R) (2+), carotid (L) (2+), dorsalis pedis (R) (1+), dorsalis pedis (L) (1+) Neuro: ALERT, ORIENTED x 3, NORMAL MOTOR EXAM, NORMAL SENSATION Reflexes: biceps (R) (2+), bicpes (L) (2+), achilles (R) (2+), achilles (L) (2+ ) Babinski Testing: right (downgoing), left (downgoing) Psychiatric: NORMAL AFFECT Diagnostics Labs Results Past 24 Hours Test 10/07/16 06:25 10/07/16 09:17 Range/Units Activated Partial Thromboplast Time 27.0 21.0-31.0 SECONDS Partial Thromboplastin Ratio 1.0 White Blood Count 12.86 4.8-10.8 K/uL Red Blood Count 4.36 4.7-6.1 M/uL Hemoglobin 13.8 14.0-18.0 g/dL Hematocrit 42.4 42-52 % Mean Corpuscular Volume 97.2 80-100 fL Mean Corpuscular Hemoglobin 31.7 25-34 pg Mean Corpuscular Hemoglobin Concent 32.5 32-36 g/dl Platelet Count 227 130-400 K/uL Mean Platelet Volume 10.0 7.4-10.4 fL Neutrophils (%) (Auto) 80.8 % Lymphocytes (%) (Auto) 14.0 % Monocytes (%) (Auto) 3.3 % Eosinophils (%) (Auto) 0.8 % Basophils (%) (Auto) 0.2 % Neutrophils # (Auto) 10.39 1.4-6.5 K/uL Lymphocytes # (Auto) 1.80 1.2-3.4 K/uL Monocytes # (Auto) 0.42 0.11-0.59 K/uL Eosinophils # (Auto) 0.10 0-0.5 K/uL Basophils # (Auto) 0.03 0-0.2 K/uL RDW Standard Deviation 65.2 36.4-46.3 fL RDW Coefficient of Variation 18.7 11.5-14.5 % Immature Granulocyte % (Auto) 0.9 % Immature Granulocyte # (Auto) 0.12 0.00-0.02 K/uL Sodium Level 140 136-145 mmol/L Potassium Level 3.6 3.5-5.1 mmol/L Chloride Level 97 98-107 mmol/L Carbon Dioxide Level 36 21-32 mmol/L Anion Gap 7.0 3-11 mmol/L Blood Urea Nitrogen 34 7-18 mg/dl Creatinine 1.60 0.60-1.40 mg/dl Est Creatinine Clear Calc Drug Dose 62.0 ml/min Estimated GFR () 49.2 Estimated GFR (Non- 42.4 BUN/Creatinine Ratio 21.5 10-20 Random Glucose 130 70-99 mg/dl Calcium Level 8.4 8.5-10.1 mg/dl Diagnostic Radiology Radiology: Venous Dopplers 10/04/2016 Dereck signs of DVTs Chest x-ray 10/04/2016 oExpiratory film cephalization with parabronchial cuffing and hilar fullness EKG sinus tachycardia with premature atrial complexes noted October 04, 2016 Impression Assessment and Plan 71 year-old male admitted for acute on chronic shortness of breath noted be in new onset atrial fibrillation: #1 Hypoxia: Hypoxemia and most likely multifactorial with obesity/RVD, severe BETINA, moderately severe COPD new-onset atrial fibrillation and diastolic heart failure: BETINA/RVD/obesity: At this time continue patient on his outside settings of BiPAP at 24/14. On this will order nocturnal desaturation studies for evaluation of titration or possibly O2 supplementation Diastolic heart failure: Thoracic ultrasound evaluation shows B-lines throughout both hemithoraces suggestive of volume overload. Suggest we continue diuresis at this time. Patient might have croup 2/group 1 pulmonary hypertension requiring further evaluation such as right heart catheterization when stable. COPD: Possible COPD exacerbation continue current steroid dosing treating both COPD and temporal arthritis. Thank you very much for this consultation
[2016-10-07 15:26] VITALS: BP 145/71; PULSE 104; TEMP 36.4; O2SAT 92
--- NOTE | 2016-10-07 15:31 | Progress Note ---
Subjective Date of Service: Oct 07, 2016. Subjective Pt evaluation today including: conversation w/ patient, physical exam, chart review, lab review, review of studies, review of inpatient medication list Problem List Medical Problems: (1) Hypomagnesemia Status: Acute (2) Hypoxia Status: Acute (3) Shortness of breath Status: Acute Review of Systems Constitutional: No chills, No fever Respiratory: + cough, + dyspnea at rest, + dyspnea on exertion, + shortness of breath, No sputum, No wheezing Cardiac: No chest pain, No orthopnea Abdomen: No constipation, No diarrhea, No nausea, No pain, No vomiting Musculoskeletal: No joint pain, No muscle pain Male : No dysuria, No urinary frequency Objective Vital Signs Date Time Temp Pulse Resp B/P Pulse Ox O2 Delivery O2 Flow Rate FiO2 10/07/16 11:19 81 Room Air 10/07/16 09:00 Nasal Cannula 3.0 10/07/16 07:28 36.8 82 18 100/65 92 Nasal Cannula 3.0 10/07/16 00:00 Nasal Cannula 3.0 10/06/16 22:30 36.6 87 18 104/58 93 2.0 10/06/16 20:47 Nasal Cannula 3.0 10/06/16 19:45 36.9 75 20 103/57 93 Nasal Cannula 3.0 10/06/16 16:46 85/46 10/06/16 16:01 36.6 99 20 80/46 92 Nasal Cannula 3.0 68/45 80/48 80/46 Physical Exam General Appearance: WD/WN, no apparent distress Neck: supple, thyroid normal Respiratory/Chest: lungs clear, normal breath sounds Cardiovascular: no edema, no gallop Abdomen: non tender, soft Neurologic/Psychiatric: alert, oriented x 3 Laboratory Results Last 24 Hours Test 10/07/16 06:25 10/07/16 09:17 Activated Partial Thromboplast Time 27.0 SECONDS Partial Thromboplastin Ratio 1.0 White Blood Count 12.86 K/uL Red Blood Count 4.36 M/uL Hemoglobin 13.8 g/dL Hematocrit 42.4 % Mean Corpuscular Volume 97.2 fL Mean Corpuscular Hemoglobin 31.7 pg Mean Corpuscular Hemoglobin Concent 32.5 g/dl Platelet Count 227 K/uL Mean Platelet Volume 10.0 fL Neutrophils (%) (Auto) 80.8 % Lymphocytes (%) (Auto) 14.0 % Monocytes (%) (Auto) 3.3 % Eosinophils (%) (Auto) 0.8 % Basophils (%) (Auto) 0.2 % Neutrophils # (Auto) 10.39 K/uL Lymphocytes # (Auto) 1.80 K/uL Monocytes # (Auto) 0.42 K/uL Eosinophils # (Auto) 0.10 K/uL Basophils # (Auto) 0.03 K/uL RDW Standard Deviation 65.2 fL RDW Coefficient of Variation 18.7 % Immature Granulocyte % (Auto) 0.9 % Immature Granulocyte # (Auto) 0.12 K/uL Sodium Level 140 mmol/L Potassium Level 3.6 mmol/L Chloride Level 97 mmol/L Carbon Dioxide Level 36 mmol/L Anion Gap 7.0 mmol/L Blood Urea Nitrogen 34 mg/dl Creatinine 1.60 mg/dl Est Creatinine Clear Calc Drug Dose 62.0 ml/min Estimated GFR () 49.2 Estimated GFR (Non- 42.4 BUN/Creatinine Ratio 21.5 Random Glucose 130 mg/dl Calcium Level 8.4 mg/dl Assessment and Plan 71 y/o M with Hx HTN, HPL, temporal arteritis, obesity and BETINA. Pt has became progressively SOB over the past few weeks and noted increasing LE edema and weight gain as well. His neighbor is an MD and had evaluated him at home earlier and advise him to attend the hospital. He does not have a history of CHF or AF. He is currently being treated with prednisone and MTX for Temporal Arteritis. SOB - likely multifactorial from BETINA, COPD, and diastolic HF. Pt is receiving diuresis with Lasix - Admitted to telemetry, trops x 3 sets neg, ECHO 55-60% EF , no WMA. Pulm consulted. Thoracic US completed, noted effusions, cont diuresis at this time. Will qualify for home O2 Temporal Arteritis - he states that he failed a taper and has been on prednisone for 1.5 years. Will cont current dose - MTX is administered Q2wks. COPD - Pt is on prednisone regardless and can cont his home inhalers in addition to BiPAP BETINA - has brought his BIPAP with him which we will employ. Pt is FULL CODE
[2016-10-07] MEDS ORDERED: NURSING VERBAL MED ORDER ONE (15:45)
[2016-10-07] MEDS ORDERED: FUROSEMIDE INJ 20 MG in SYRINGE 0 ML IV SCH (17:00)
[2016-10-07] MEDS: PANTOprazole SOD 40 MG TAB PO SCH (19:47)
[2016-10-08 00:15] VITALS: BP 169/93; PULSE 104; TEMP 36.7; O2SAT 94
[2016-10-08 07:13] LABS: HEMATOCRIT 40.3 % (42-52); MEAN CELL VOLUME 97.1 fL (80-100); MEAN CORPUSCULAR HEMOGLOBIN 31.8 pg (25-34); MEAN CORPUSCULAR HGB CONC 32.8 g/dl (32-36); MEAN PLATELET VOLUME 9.9 fL (7.4-10.4); PLATELET COUNT 198 K/uL (130-400); RED BLOOD COUNT 4.15 M/uL (4.7-6.1); WHITE BLOOD COUNT 11.12 K/uL (4.8-10.8)
[2016-10-08 07:21] VITALS: BP 152/75; PULSE 99; TEMP 36.6; O2SAT 95
[2016-10-08] MEDS ORDERED: PANTOprazole SOD 40 MG TAB PO SCH (08:00)
[2016-10-08] MEDS: TIOTROPIUM BROMIDE 5 PUFF/90 MCG INH INH SCH (08:54)
[2016-10-08] MEDS: DULERA~ORDER AWAITING ACTION SCH (08:54)
[2016-10-08] MEDS: TAMSULOSIN HCL 0.4 MG CAP PO SCH (08:55)
[2016-10-08] MEDS: VENLAFAXINE HCL XR 75 MG CAPXR PO SCH (08:55)
[2016-10-08] MEDS: VENLAFAXINE HCL XR 150 MG CAPXR PO SCH (08:55)
[2016-10-08] MEDS: POTASSIUM CHLORIDE 10 MEQ TABCR PO SCH ×2 (08:56→17:19)
[2016-10-08] MEDS: PANTOprazole SOD 40 MG TAB PO SCH ×2 (08:57→19:45)
[2016-10-08] MEDS: SIMVASTATIN 40 MG TAB PO SCH (08:57)
[2016-10-08] MEDS: CHOLECALCIFEROL 1000 INTER.UNIT TAB PO SCH (08:57)
[2016-10-08] MEDS: ALUMINUM/MAGNESIUM/SIMETH (MAALOX MAX) 30 ML UDC PO PRN (09:02)
[2016-10-08] MEDS: FUROSEMIDE INJ 40 MG in SYRINGE 0 ML IV SCH ×2 (10:21→17:21)
--- NOTE | 2016-10-08 13:07 | Pulmonology Progress Note ---
Pulmonary Progress Note Date of Service Oct 08, 2016. Subjective Feeling stable today. Some light-headedness with ambulation to the restroom. Intermittent non-productive cough. Denies wheeze or chest pain. Has been urinating post diuretic. Has not worn his BiPAP this admission. Objective 71-year-old male admitted to [facility] through the emergency department 10/04/2016 with 2-3 week history of dyspnea, weight gain, and peripheral edema. In the emergency department he was noted to be hypoxic in new onset atrial fibrillation with RVR. Echocardiogram 10/05: EF 50-55% wtih moderate LVH. LE doppler: unremarkable. CXR: mild pulmonary vascular congestion without infiltrate. Thoracic ulrasound consistent with edema. PMHx includes: CHF, PRN oxygen, h/o prostate cancer, tobacco (30+ pack year), temporal arteritis on chronic prednisone, COPD (TREER dulera 200/5 + Spiriva), BETINA on BiPAP i24/e14 with a backup rate of 10, and obesity. Today: - Tachycardia: - low 100s, hypertensive, afebrile - Wt: 144.4kg - Nocturnal pulse oximetry was performed incorrectly (off BiPAP) - no results - WBC/Hgb/Hct/Plts: 11.12/13.2/40.3/198 - CO2: 36, Cr: 1.6 Physical Exam: Constitutional: Well developed, well nourished obese male lying in hospital bed. No acute distress. Head: + facial symmetry Eyes: EOMi, PERRLA, no conjunctival injection. Glasses Neck: Trachea midline. No adenopathy or masses Respiratory: Non-labored respirations. No wheeze, rales or rhonchi. No clubbing or cyanosis. Cardiovascular: Rapid rate, irregular irregular no MRG. +2 radial pulses. <1s capillary refill. Abdomen: soft, active bowel sounds Integumentary: no rashes, or ecchymosis MSK/Extremities: Moving and developed symmetrically. Bilateral +1 pitting edema with venous stasis changes. No calf tenderness. Neurologic: A&O, data recall in-tact. Appropriate affect. Assessment & Plan 71-yo male with h/o COPD, CHF, temporal arteritis on chronic prednisone, and severe sleep apnea on BiPAP presented wtih CHF and new onset Atrial fibrillation / RVR. 1. COPD: Continue Dulera 200/5 and Spiriva with PRN Xopenex 2. Attempt nocturnal oximetry study ON BIPAP asses any additional O2 needs on current treatment. Patient reviewed and plan agreed upon. Data Medications: Current Inpatient Medications Medications (Trade) Dose Ordered Sig/Simon Route Start Time Stop Time Status Last Admin Dose Admin Albuterol (Ventolin Hfa Inhaler) 2 puffs Q4H PRN INH 10/05/16 00:00 11/04/16 00:00 Cholecalciferol (Vitamin D Tab) 1,000 inter.unit DAILY PO 10/05/16 09:00 11/04/16 08:59 10/08/16 08:57 1,000 INTER.UNIT Folic Acid (Folvite Tab) 1 mg DAILY PO 10/05/16 09:00 11/04/16 08:59 10/08/16 08:56 1 MG Prednisone (PredniSONE TAB) 30 mg DAILY PO 10/05/16 09:00 11/04/16 08:59 10/08/16 08:57 30 MG Simvastatin (Zocor Tab) 40 mg DAILY PO 10/05/16 09:00 11/04/16 08:59 10/08/16 08:57 40 MG Tamsulosin HCl (Flomax Cap) 0.4 mg DAILY PO 10/05/16 09:00 11/04/16 08:59 10/08/16 08:55 0.4 MG Tiotropium [place] (Spiriva Handihaler Inhaler) 1 puff DAILY INH 10/05/16 09:00 11/04/16 08:59 10/08/16 08:54 1 PUFF Venlafaxine HCl (effeXOR EXTENDED REL CAP) 75 mg DAILY PO 10/05/16 09:00 11/04/16 08:59 10/08/16 08:55 75 MG Venlafaxine HCl (effeXOR EXTENDED REL CAP) 150 mg DAILY PO 10/05/16 09:00 11/04/16 08:59 10/08/16 08:55 150 MG Miscellaneous Information (Order Awaiting Action) 1 ea QS N/A 10/05/16 08:00 11/04/16 07:59 Acetaminophen (Tylenol Tab) 650 mg Q4H PRN PO 10/05/16 00:00 11/04/16 00:00 Al Hydrox/Mg Hydrox/Simethicone (Maalox Max Susp) 15 ml Q4H PRN PO 10/05/16 00:00 11/04/16 00:00 10/08/16 09:02 15 ML Magnesium Hydroxide (Milk Of Magnesia Susp) 30 ml Q12H PRN PO 10/05/16 00:00 11/04/16 00:00 Ondansetron HCl (Zofran Inj) 4 mg Q6H PRN IV 10/05/16 00:00 11/04/16 00:00 10/06/16 05:42 4 MG Nitroglycerin (Nitroglycerin 2% Oint) 1 inch Q6 EXT 10/05/16 07:30 11/04/16 07:29 Future Hold 10/06/16 13:05 1 INCH Morphine Sulfate (MoRPHine SULFATE INJ) 2 mg Q30M PRN IV 10/05/16 00:00 10/19/16 00:00 Polyethylene (Miralax Powder Packet) 17 gm DAILY PRN PO 10/05/16 00:00 11/04/16 00:00 10/07/16 09:03 17 GM Potassium Chloride (Klor-Con M10) 10 meq BIDM PO 10/05/16 08:00 11/04/16 07:59 10/08/16 08:56 10 MEQ Metoprolol Tartrate (Lopressor Tab) 12.5 mg TID PO 10/05/16 12:00 11/04/16 11:59 Future Hold 10/06/16 14:20 12.5 MG Lisinopril (Zestril Tab) 10 mg QAM PO 10/06/16 09:00 11/05/16 08:59 Future Hold 10/06/16 09:06 10 MG Heparin Sodium (Porcine) (Heparin Sq 5000 Unit/0.5ml) 5,000 unit Q8 SQ 10/06/16 14:00 11/05/16 13:59 Future Hold 10/07/16 13:07 5,000 UNIT Pantoprazole Sodium 40 mg 40 mg BID PO 10/07/16 20:00 11/06/16 19:59 10/08/16 08:57 40 MG Furosemide/Syringe (Lasix Inj/ Syringe) 4 ml @ 4 mls/min BID17 IV 10/08/16 09:30 11/07/16 08:59 10/08/16 10:21 4 MLS/MIN Mometasone Furoate/ Formoterol Fumar (Dulera) 1 ea BID INH 10/08/16 20:00 11/07/16 19:59 UNV I & O: 24-Hour Column 10/08/16 08:00 Intake Total 250 ml Balance 250 ml Vital Signs: Date Time Temp Pulse Resp B/P Pulse Ox O2 Delivery O2 Flow Rate FiO2 10/08/16 07:49 Nasal Cannula 3.0 10/08/16 07:21 36.6 99 20 152/75 95 Nasal Cannula 3.0 10/08/16 00:15 36.7 104 20 169/93 94 Nasal Cannula 3.0 10/08/16 00:00 Nasal Cannula 3.0 10/07/16 16:57 Nasal Cannula 3.0 10/07/16 15:26 36.4 104 18 145/71 92 Nasal Cannula 3.0 Laboratory Results: Last 24 Hours Test 10/08/16 06:50 White Blood Count 11.12 K/uL Red Blood Count 4.15 M/uL Hemoglobin 13.2 g/dL Hematocrit 40.3 % Mean Corpuscular Volume 97.1 fL Mean Corpuscular Hemoglobin 31.8 pg Mean Corpuscular Hemoglobin Concent 32.8 g/dl RDW Standard Deviation 65.0 fL RDW Coefficient of Variation 18.8 % Platelet Count 198 K/uL Mean Platelet Volume 9.9 fL Activated Partial Thromboplast Time 25.9 SECONDS Partial Thromboplastin Ratio 1.0
[2016-10-08] MEDS ORDERED: LEValbuterol HFA 15GM INHALER INH PRN (13:15)
--- NOTE | 2016-10-08 14:20 | Progress Note ---
Subjective Date of Service: Oct 08, 2016. Subjective Pt evaluation today including: conversation w/ patient, physical exam, chart review, lab review, review of studies, review of inpatient medication list Problem List Medical Problems: (1) Hypomagnesemia Status: Acute (2) Hypoxia Status: Acute (3) Shortness of breath Status: Acute Review of Systems Constitutional: No chills, No fever Respiratory: + cough, + dyspnea at rest, + dyspnea on exertion, + shortness of breath, + wheezing, No sputum Cardiac: No chest pain, No orthopnea Abdomen: No constipation, No diarrhea, No nausea, No pain, No vomiting Musculoskeletal: No joint pain, No muscle pain Male : No dysuria, No urinary frequency Objective Vital Signs Date Time Temp Pulse Resp B/P Pulse Ox O2 Delivery O2 Flow Rate FiO2 10/08/16 07:49 Nasal Cannula 3.0 10/08/16 07:21 36.6 99 20 152/75 95 Nasal Cannula 3.0 10/08/16 00:15 36.7 104 20 169/93 94 Nasal Cannula 3.0 10/08/16 00:00 Nasal Cannula 3.0 10/07/16 16:57 Nasal Cannula 3.0 10/07/16 15:26 36.4 104 18 145/71 92 Nasal Cannula 3.0 Physical Exam General Appearance: WD/WN, no apparent distress Neck: supple, no adenopathy Respiratory/Chest: lungs clear, + respiratory distress, + decreased breath sounds Cardiovascular: no gallop, no JVD Abdomen: non tender, soft Extremities: + pedal edema Neurologic/Psychiatric: alert, oriented x 3 Laboratory Results Last 24 Hours Test 10/08/16 06:50 White Blood Count 11.12 K/uL Red Blood Count 4.15 M/uL Hemoglobin 13.2 g/dL Hematocrit 40.3 % Mean Corpuscular Volume 97.1 fL Mean Corpuscular Hemoglobin 31.8 pg Mean Corpuscular Hemoglobin Concent 32.8 g/dl RDW Standard Deviation 65.0 fL RDW Coefficient of Variation 18.8 % Platelet Count 198 K/uL Mean Platelet Volume 9.9 fL Activated Partial Thromboplast Time 25.9 SECONDS Partial Thromboplastin Ratio 1.0 Assessment and Plan 71 y/o M with Hx HTN, HPL, temporal arteritis, obesity and BETINA. Pt has became progressively SOB over the past few weeks and noted increasing LE edema and weight gain as well. His neighbor is an MD and had evaluated him at home earlier and advise him to attend the hospital. He does not have a history of CHF or AF. He is currently being treated with prednisone and MTX for Temporal Arteritis. SOB - likely multifactorial from BETINA, COPD, and diastolic HF. Pt is receiving diuresis with Lasix - Admitted to telemetry, trops x 3 sets neg, ECHO 55-60% EF , no WMA. Pulm consulted. Thoracic US completed, noted effusions, cont diuresis at this time. Will qualify for home O2 as well. Temporal Arteritis - he states that he failed a taper and has been on prednisone for 1.5 years. Will cont current dose - MTX is administered Q2wks. COPD - Pt is on prednisone regardless and can cont his home inhalers in addition to BiPAP BETINA - has brought his BIPAP with him which we will employ. Pt is FULL CODE
[2016-10-08 16:17] VITALS: BP 152/82; PULSE 112; TEMP 36.7; O2SAT 93
[2016-10-08] MEDS: MOMETASONE FUROATE-FORMOTEROL (DULERA) 200mcg/5mcg per inh INH SCH (19:45)
[2016-10-09] VITALS (7 sets, daily range): BP systolic 133–163; BP diastolic 66–84; PULSE 85–111; TEMP 36.6–36.7; O2SAT 91–93
[2016-10-09 07:44] LABS: HEMATOCRIT 42.2 % (42-52); MEAN CELL VOLUME 96.1 fL (80-100); MEAN CORPUSCULAR HEMOGLOBIN 31.9 pg (25-34); MEAN CORPUSCULAR HGB CONC 33.2 g/dl (32-36); MEAN PLATELET VOLUME 9.9 fL (7.4-10.4); PLATELET COUNT 233 K/uL (130-400); RED BLOOD COUNT 4.39 M/uL (4.7-6.1); WHITE BLOOD COUNT 12.51 K/uL (4.8-10.8)
[2016-10-09] MEDS: CHOLECALCIFEROL 1000 INTER.UNIT TAB PO SCH (08:11)
[2016-10-09] MEDS: SIMVASTATIN 40 MG TAB PO SCH (08:11)
[2016-10-09] MEDS: POTASSIUM CHLORIDE 10 MEQ TABCR PO SCH ×2 (08:11→16:29)
[2016-10-09] MEDS: VENLAFAXINE HCL XR 150 MG CAPXR PO SCH (08:11)
[2016-10-09] MEDS: TAMSULOSIN HCL 0.4 MG CAP PO SCH (08:12)
[2016-10-09] MEDS: VENLAFAXINE HCL XR 75 MG CAPXR PO SCH (08:12)
[2016-10-09] MEDS: FUROSEMIDE INJ 40 MG in SYRINGE 0 ML IV SCH ×2 (08:13→16:30)
[2016-10-09] MEDS: TIOTROPIUM BROMIDE 5 PUFF/90 MCG INH INH SCH (08:13)
[2016-10-09] MEDS: PANTOprazole SOD 40 MG TAB PO SCH ×2 (08:14→19:00)
[2016-10-09] MEDS: MOMETASONE FUROATE-FORMOTEROL (DULERA) 200mcg/5mcg per inh INH SCH ×2 (08:14→19:00)
[2016-10-09] MEDS: POLYETHYLENE (MIRALAX) 17 GM PACK PO PRN (08:22)
--- NOTE | 2016-10-09 09:12 | DIAGNOSTIC IMAGING REPORT ---
CHEST ONE VIEW PORTABLE CLINICAL HISTORY: shortness of breath, pulm edema dyspnea COMPARISON STUDY: 10/04/2016 FINDINGS: Moderate persistent cardiomegaly. Pulmonary vasculature is slightly diminished. Tortuosity and ectasia thoracic aorta. IMPRESSION: Mildly improved components of congestive failure. Electronically signed by: Cuco Ruiz M.D. 10/09/2016 9:11 AM Dictated Date/Time: 10/09/2016 9:10 AM
--- NOTE | 2016-10-09 14:43 | Progress Note ---
Subjective Date of Service: Oct 09, 2016. Subjective Pt evaluation today including: conversation w/ patient, physical exam, chart review, lab review, review of studies, review of inpatient medication list Problem List Medical Problems: (1) Hypomagnesemia Status: Acute (2) Hypoxia Status: Acute (3) Shortness of breath Status: Acute Review of Systems Constitutional: No chills, No fever Respiratory: + dyspnea at rest, + dyspnea on exertion, + shortness of breath, + wheezing, No cough, No sputum Cardiac: No chest pain, No orthopnea Abdomen: No constipation, No nausea, No pain, No vomiting Musculoskeletal: No joint pain, No muscle pain Male : No dysuria, No urinary frequency Objective Vital Signs Date Time Temp Pulse Resp B/P Pulse Ox O2 Delivery O2 Flow Rate FiO2 10/09/16 08:00 93 Nasal Cannula 3.0 10/09/16 07:46 36.7 104 20 133/80 93 Nasal Cannula 3.0 10/09/16 00:03 36.7 85 20 163/79 91 BiPAP 3.0 10/09/16 00:00 92 BiPAP 3.0 10/08/16 16:17 36.7 112 22 152/82 93 Nasal Cannula 3.0 10/08/16 16:00 Nasal Cannula 3.0 Physical Exam General Appearance: WD/WN, no apparent distress Respiratory/Chest: + decreased breath sounds, + wheezing Cardiovascular: no gallop, no JVD Abdomen: non tender, soft Neurologic/Psychiatric: alert, oriented x 3 Laboratory Results Last 24 Hours Test 10/09/16 07:05 White Blood Count 12.51 K/uL Red Blood Count 4.39 M/uL Hemoglobin 14.0 g/dL Hematocrit 42.2 % Mean Corpuscular Volume 96.1 fL Mean Corpuscular Hemoglobin 31.9 pg Mean Corpuscular Hemoglobin Concent 33.2 g/dl RDW Standard Deviation 64.1 fL RDW Coefficient of Variation 18.9 % Platelet Count 233 K/uL Mean Platelet Volume 9.9 fL Activated Partial Thromboplast Time 25.8 SECONDS Partial Thromboplastin Ratio 1.0 Assessment and Plan 71 y/o M with Hx HTN, HPL, temporal arteritis, obesity and BETINA. Pt has became progressively SOB over the past few weeks and noted increasing LE edema and weight gain as well. His neighbor is an MD and had evaluated him at home earlier and advise him to attend the hospital. He does not have a history of CHF or AF. He is currently being treated with prednisone and MTX for Temporal Arteritis. SOB - likely multifactorial from BETINA, COPD, and diastolic HF. Pt is receiving diuresis with Lasix - Admitted to telemetry, trops x 3 sets neg, ECHO 55-60% EF , no WMA. Pulm consulted. Thoracic US completed, noted effusions, cont diuresis at this time. Will qualify for home O2 as well. Temporal Arteritis - he states that he failed a taper and has been on prednisone for 1.5 years. Will cont current dose - MTX is administered Q2wks. COPD - Pt is on prednisone regardless and can cont his home inhalers in addition to BiPAP BETINA - has brought his BIPAP with him which we will employ. Pt is FULL CODE
--- NOTE | 2016-10-09 18:08 | Pulmonology Progress Note ---
Pulmonary Progress Note Date of Service Oct 09, 2016. Attending Hi Cao Subjective Patient notes increased respiratory status with decreased dyspnea on exertion. Objective 71-year-old male admitted to [facility] through the emergency department 10/04/2016 with 2-3 week history of dyspnea, weight gain, and peripheral edema. In the emergency department he was noted to be hypoxic in new onset atrial fibrillation with RVR. Echocardiogram 10/05: EF 50-55% wtih moderate LVH. LE doppler: unremarkable. CXR: mild pulmonary vascular congestion without infiltrate. Thoracic ulrasound consistent with edema. PMHx includes: CHF, PRN oxygen, h/o prostate cancer, tobacco (30+ pack year), temporal arteritis on chronic prednisone, COPD ([employer] dulera 200/5 + Spiriva), BETINA on BiPAP i24/e14 with a backup rate of 10, and obesity. Today: I/Os: -1.1L Physical Exam: Constitutional: Well developed, well nourished obese male lying in hospital bed. No acute distress. Head: + facial symmetry Eyes: EOMi, PERRLA, no conjunctival injection. Glasses Neck: Trachea midline. No adenopathy or masses Respiratory: Non-labored respirations. No wheeze, rales or rhonchi. No clubbing or cyanosis. Cardiovascular: Rapid rate, irregular irregular no MRG. +2 radial pulses. <1s capillary refill. Abdomen: soft, active bowel sounds Integumentary: no rashes, or ecchymosis MSK/Extremities: Moving and developed symmetrically. Bilateral +1 pitting edema with venous stasis changes. No calf tenderness. Neurologic: A&O, data recall in-tact. Appropriate affect. Medications: #1.Dulera BID #2 Xopenex 4 times per day #3 prednisone 30 mg per day #4 Spiriva one puff daily Nocturnal oximetry study performed showing longus continuous time of saturations less than 89% was only 3.36 minutes Venous Dopplers 10/05/2016: No evidence of deep venous thrombosis I noted Chest x-ray 10/09/2016: Bilateral hilar fullness, parabronchial cuffing with fluid in the minor fissure as well as bilateral cephalization Assessment & Plan 71-yo male with h/o COPD, CHF, temporal arteritis on chronic prednisone, and severe sleep apnea on BiPAP presented wtih CHF and new onset Atrial fibrillation / RVR. #1 Pulmonary hypertension: The patient most likely has a combination of group 2 and group 3 pulmonary hypertension. At this time we need to limit his water intake to 1.5 L per day and continue aggressive diuresis while monitoring his renal function. His pulmonary hypertension will require further workup to define its etiology and its extent. I suggested that as an outpatient when the patient is an even fluid balance we perform a right heart catheterization. At this time BETINA/OHV control and fluid management of the appropriate steps. #2 BETINA/OHV: Patient should continue on his current BiPAP settings . Nocturnal desaturation study showed no acute changes are necessary. #3 COPD: We'll taper down patient's steroids at this time to 20 mg per day and continue to monitor. Data Medications: Current Inpatient Medications Medications (Trade) Dose Ordered Sig/Simon Route Start Time Stop Time Status Last Admin Dose Admin Cholecalciferol (Vitamin D Tab) 1,000 inter.unit DAILY PO 10/05/16 09:00 11/04/16 08:59 10/09/16 08:11 1,000 INTER.UNIT Folic Acid (Folvite Tab) 1 mg DAILY PO 10/05/16 09:00 11/04/16 08:59 10/09/16 08:11 1 MG Prednisone (PredniSONE TAB) 30 mg DAILY PO 10/05/16 09:00 11/04/16 08:59 10/09/16 08:12 30 MG Simvastatin (Zocor Tab) 40 mg DAILY PO 10/05/16 09:00 11/04/16 08:59 10/09/16 08:11 40 MG Tamsulosin HCl (Flomax Cap) 0.4 mg DAILY PO 10/05/16 09:00 11/04/16 08:59 10/09/16 08:12 0.4 MG Tiotropium [place] (Spiriva Handihaler Inhaler) 1 puff DAILY INH 10/05/16 09:00 11/04/16 08:59 10/09/16 08:13 1 PUFF Venlafaxine HCl (effeXOR EXTENDED REL CAP) 75 mg DAILY PO 10/05/16 09:00 11/04/16 08:59 10/09/16 08:12 75 MG Venlafaxine HCl (effeXOR EXTENDED REL CAP) 150 mg DAILY PO 10/05/16 09:00 11/04/16 08:59 10/09/16 08:11 150 MG Acetaminophen (Tylenol Tab) 650 mg Q4H PRN PO 10/05/16 00:00 11/04/16 00:00 Al Hydrox/Mg Hydrox/Simethicone (Maalox Max Susp) 15 ml Q4H PRN PO 10/05/16 00:00 11/04/16 00:00 10/08/16 09:02 15 ML Magnesium Hydroxide (Milk Of Magnesia Susp) 30 ml Q12H PRN PO 10/05/16 00:00 11/04/16 00:00 10/09/16 08:22 30 ML Ondansetron HCl (Zofran Inj) 4 mg Q6H PRN IV 10/05/16 00:00 11/04/16 00:00 10/06/16 05:42 4 MG Nitroglycerin (Nitroglycerin 2% Oint) 1 inch Q6 EXT 10/05/16 07:30 11/04/16 07:29 Future Hold 10/06/16 13:05 1 INCH Morphine Sulfate (MoRPHine SULFATE INJ) 2 mg Q30M PRN IV 10/05/16 00:00 10/19/16 00:00 Polyethylene (Miralax Powder Packet) 17 gm DAILY PRN PO 10/05/16 00:00 11/04/16 00:00 10/09/16 08:22 17 GM Potassium Chloride (Klor-Con M10) 10 meq BIDM PO 10/05/16 08:00 11/04/16 07:59 10/09/16 16:29 10 MEQ Metoprolol Tartrate (Lopressor Tab) 12.5 mg TID PO 10/05/16 12:00 11/04/16 11:59 Future Hold 10/06/16 14:20 12.5 MG Lisinopril (Zestril Tab) 10 mg QAM PO 10/06/16 09:00 11/05/16 08:59 Future Hold 10/06/16 09:06 10 MG Heparin Sodium (Porcine) (Heparin Sq 5000 Unit/0.5ml) 5,000 unit Q8 SQ 10/06/16 14:00 11/05/16 13:59 Future Hold 10/07/16 13:07 5,000 UNIT Pantoprazole Sodium 40 mg 40 mg BID PO 10/07/16 20:00 11/06/16 19:59 10/09/16 08:14 40 MG Furosemide/Syringe (Lasix Inj/ Syringe) 4 ml @ 4 mls/min BID17 IV 10/08/16 09:30 11/07/16 08:59 10/09/16 16:30 4 MLS/MIN Mometasone Furoate/ Formoterol Fumar (Dulera) 1 ea BID INH 10/08/16 20:00 11/07/16 19:59 10/09/16 08:14 1 EA Levalbuterol (Xopenex Hfa Inhaler) 2 puffs QID PRN INH 10/08/16 13:15 11/07/16 13:14 I & O: 24-Hour Column 10/09/16 08:00 Intake Total 560 ml Output Total 2100 ml Balance -1540 ml Vital Signs: Date Time Temp Pulse Resp B/P Pulse Ox O2 Delivery O2 Flow Rate FiO2 10/09/16 16:15 91 Nasal Cannula 3.0 10/09/16 15:37 36.6 111 18 154/84 91 Nasal Cannula 3.0 10/09/16 08:00 93 Nasal Cannula 3.0 10/09/16 07:46 36.7 104 20 133/80 93 Nasal Cannula 3.0 10/09/16 00:03 36.7 85 20 163/79 91 BiPAP 3.0 10/09/16 00:00 92 BiPAP 3.0 Laboratory Results: Last 24 Hours Test 10/09/16 07:05 White Blood Count 12.51 K/uL Red Blood Count 4.39 M/uL Hemoglobin 14.0 g/dL Hematocrit 42.2 % Mean Corpuscular Volume 96.1 fL Mean Corpuscular Hemoglobin 31.9 pg Mean Corpuscular Hemoglobin Concent 33.2 g/dl RDW Standard Deviation 64.1 fL RDW Coefficient of Variation 18.9 % Platelet Count 233 K/uL Mean Platelet Volume 9.9 fL Activated Partial Thromboplast Time 25.8 SECONDS Partial Thromboplastin Ratio 1.0
[2016-10-10] MEDS: VENLAFAXINE HCL XR 150 MG CAPXR PO SCH (07:31)
[2016-10-10] MEDS: SIMVASTATIN 40 MG TAB PO SCH (07:31)
[2016-10-10] MEDS: VENLAFAXINE HCL XR 75 MG CAPXR PO SCH (07:31)
[2016-10-10] MEDS: TIOTROPIUM BROMIDE 5 PUFF/90 MCG INH INH SCH (07:32)
[2016-10-10] MEDS: POTASSIUM CHLORIDE 10 MEQ TABCR PO SCH ×2 (07:32→16:47)
[2016-10-10] MEDS: CHOLECALCIFEROL 1000 INTER.UNIT TAB PO SCH (07:32)
[2016-10-10] MEDS: PANTOprazole SOD 40 MG TAB PO SCH ×2 (07:32→19:46)
[2016-10-10] MEDS: TAMSULOSIN HCL 0.4 MG CAP PO SCH (07:32)
[2016-10-10] MEDS: FUROSEMIDE INJ 40 MG in SYRINGE 0 ML IV SCH ×2 (07:33→16:48)
[2016-10-10] MEDS: MOMETASONE FUROATE-FORMOTEROL (DULERA) 200mcg/5mcg per inh INH SCH ×2 (07:33→19:47)
[2016-10-10] MEDS: ALUMINUM/MAGNESIUM/SIMETH (MAALOX MAX) 30 ML UDC PO PRN (07:38)
[2016-10-10 07:40] VITALS: BP 157/66; PULSE 92; TEMP 36.7; O2SAT 95
[2016-10-10 08:00] VITALS: O2SAT 95
[2016-10-10 09:06] LABS: HEMATOCRIT 45.1 % (42-52); MEAN CELL VOLUME 94.9 fL (80-100); MEAN CORPUSCULAR HEMOGLOBIN 31.6 pg (25-34); MEAN CORPUSCULAR HGB CONC 33.3 g/dl (32-36); MEAN PLATELET VOLUME 9.9 fL (7.4-10.4); PLATELET COUNT 268 K/uL (130-400); RED BLOOD COUNT 4.75 M/uL (4.7-6.1); WHITE BLOOD COUNT 14.96 K/uL (4.8-10.8)
--- NOTE | 2016-10-10 12:18 | Progress Note ---
Subjective Date of Service: Oct 10, 2016. Subjective Pt evaluation today including: conversation w/ patient, physical exam, chart review, lab review, review of studies, review of inpatient medication list Problem List Medical Problems: (1) Hypomagnesemia Status: Acute (2) Hypoxia Status: Acute (3) Shortness of breath Status: Acute Review of Systems Constitutional: No chills, No fever Respiratory: + cough, + dyspnea on exertion, No shortness of breath, No sputum , No wheezing Cardiac: No chest pain, No orthopnea Abdomen: No constipation, No diarrhea, No nausea, No pain, No vomiting Musculoskeletal: No joint pain, No muscle pain Male : No dysuria, No urinary frequency Objective Vital Signs Date Time Temp Pulse Resp B/P Pulse Ox O2 Delivery O2 Flow Rate FiO2 10/10/16 08:00 95 Nasal Cannula 3.0 10/10/16 07:40 36.7 92 20 157/66 95 Nasal Cannula 3.0 10/10/16 00:01 BiPAP 10/09/16 23:20 36.6 90 20 154/66 93 Nasal Cannula 3.0 10/09/16 19:15 Nasal Cannula 3.0 10/09/16 16:15 91 Nasal Cannula 3.0 10/09/16 15:37 36.6 111 18 154/84 91 Nasal Cannula 3.0 Physical Exam General Appearance: WD/WN, no apparent distress Neck: supple, no adenopathy Cardiovascular: no edema, no gallop Abdomen: non tender, soft Neurologic/Psychiatric: alert, oriented x 3 Laboratory Results Last 24 Hours Test 10/10/16 08:30 White Blood Count 14.96 K/uL Red Blood Count 4.75 M/uL Hemoglobin 15.0 g/dL Hematocrit 45.1 % Mean Corpuscular Volume 94.9 fL Mean Corpuscular Hemoglobin 31.6 pg Mean Corpuscular Hemoglobin Concent 33.3 g/dl RDW Standard Deviation 65.3 fL RDW Coefficient of Variation 19.1 % Platelet Count 268 K/uL Mean Platelet Volume 9.9 fL Activated Partial Thromboplast Time 26.1 SECONDS Partial Thromboplastin Ratio 1.0 Assessment and Plan 71 y/o M with Hx HTN, HPL, temporal arteritis, obesity and BETINA. Pt has became progressively SOB over the past few weeks and noted increasing LE edema and weight gain as well. His neighbor is an MD and had evaluated him at home earlier and advise him to attend the hospital. He does not have a history of CHF or AF. He is currently being treated with prednisone and MTX for Temporal Arteritis. SOB - likely multifactorial from BETINA, COPD, and diastolic HF. Pt is receiving diuresis with Lasix - Admitted to telemetry, trops x 3 sets neg, ECHO 55-60% EF , no WMA. Pulm consulted. Thoracic US completed, noted effusions, cont diuresis at this time. Will qualify for home O2 as well. Likely DC in next 24 hrs. O Temporal Arteritis - he states that he failed a taper and has been on prednisone for 1.5 years. Will cont current dose - MTX is administered Q2wks. COPD - Pt is on prednisone regardless and can cont his home inhalers in addition to BiPAP BETINA - has brought his BIPAP with him which we will employ. Pt is FULL CODE
--- NOTE | 2016-10-10 13:27 | PULMONARY PROGRESS NOTE ---
DATE: 10/10/2016 TIME: 12:25 p.m. SUBJECTIVE: The patient is generally improving. He feels that his breathing is much better than when he first came in. He is still coughing some. He is not able to expectorate any sputum. The patient did not wear his BiPAP last night. He states no one came in and told him to put it on. I believe he has some difficulty tolerating the BiPAP. He states he has only had his machine for a few weeks at home. He then stopped using it because he did not know how to hook the oxygen in. He still has not used the humidity on his machine. He admits to being dry. His son was present during this evaluation. OBJECTIVE: GENERAL: The patient appeared comfortable at rest. VITAL SIGNS: Temperature is 36.7. HEENT: Pupils were reactive to light. Mouth exam showed generalized crowding in the posterior pharynx. He has a very large neck. No lymph nodes were palpable. CHEST: Showed an increased AP diameter. HEART: Rate was 92. The rhythm was irregular. It had the irregular sounds that atrial fibrillation or multifocal atrial tachycardia might have. Blood pressure is 157/66. LUNGS: Lung angulo revealed mild rales bilaterally. No wheezes were heard. Respiratory rate was 20 breaths per minute. Saturation was 95% on 3 liters. ABDOMEN: Very obese. Bowel sounds were present. The BMI is 40.8. There was no tenderness to palpation. EXTREMITIES: Revealed +1 to +2 edema bilaterally. LABORATORY DATA: White count today is 14.96. Hemoglobin is 15. Platelets are 268,000. The electrolytes done most recently on October 07 did reveal the CO2 elevated at 36. Also, the BUN and creatinine are elevated at 34 and 1.6 respectively. The BUN had been 16 on admission and the creatinine had been 1.1 on admission. TSH had been normal at 1.1. IMPRESSION: 1. Obesity hypoventilation syndrome. 2. Chronic obstructive pulmonary disease with exacerbation. 3. Obstructive sleep apnea. 4. Cardiac arrhythmia. COMMENTS: The patient is feeling improved. I do not know that he is feeling all that great yet however. He did diurese well yesterday with a negative balance of 1435 mL. There has been a rise in his BUN and creatinine since admission and this should be rechecked. The patient needs to wear his BiPAP every night. I explained this to him in detail. He is on Prednisone 20 mg daily. He has been maintained on prednisone long-term due to the temporal arteritis. He is on Tiotropium. The patient has had a problem with prostate problems in terms of cancer. I do not know how slow is, but if he has prostate problems from a perspective of hypertrophy, ideally Spiriva should not be given. I see he is taking tamsulosin. He is getting Xopenex on a p.r.n. basis. If he has significant obstructive lung disease he may not be getting optimal bronchodilation. At home, he was on Dulera 2 puffs b.i.d. but appears to be on just 1 puff now. Reportedly, in 2015, he had PFTs that were showing mild to moderate airflow obstruction. Probably these will need to be repeated. I will check with the patient as to exactly what he does take at home for his breathing. The patient states that discharge may be contemplated in 24 hours or so.
[2016-10-10 15:24] VITALS: BP 166/94; PULSE 110; TEMP 36.5; O2SAT 94
[2016-10-10 23:59] VITALS: BP 161/87; PULSE 112; TEMP 36.8; O2SAT 91
[2016-10-11 08:00] VITALS: O2SAT 95
[2016-10-11] MEDS: TAMSULOSIN HCL 0.4 MG CAP PO SCH (08:17)
[2016-10-11] MEDS: POTASSIUM CHLORIDE 10 MEQ TABCR PO SCH ×2 (08:17→17:10)
[2016-10-11] MEDS: SIMVASTATIN 40 MG TAB PO SCH (08:17)
[2016-10-11] MEDS: TIOTROPIUM BROMIDE 5 PUFF/90 MCG INH INH SCH (08:17)
[2016-10-11] MEDS: VENLAFAXINE HCL XR 150 MG CAPXR PO SCH (08:17)
[2016-10-11] MEDS: CHOLECALCIFEROL 1000 INTER.UNIT TAB PO SCH (08:17)
[2016-10-11] MEDS: PANTOprazole SOD 40 MG TAB PO SCH ×2 (08:17→20:05)
[2016-10-11] MEDS: VENLAFAXINE HCL XR 75 MG CAPXR PO SCH (08:17)
[2016-10-11] MEDS: FUROSEMIDE INJ 40 MG in SYRINGE 0 ML IV SCH ×2 (08:18→17:11)
[2016-10-11] MEDS: MOMETASONE FUROATE-FORMOTEROL (DULERA) 200mcg/5mcg per inh INH SCH ×2 (08:18→20:05)
[2016-10-11 09:00] LABS: BUN/CREATININE RATIO 19.2 (10-20); CALCIUM 9.5 mg/dl (8.5-10.1); CREATININE 1.2 mg/dl (0.60-1.40); POTASSIUM 3.6 mmol/L (3.5-5.1)
[2016-10-11 09:03] LABS: ALB/GLOB RATIO 0.9 (0.9-2)
[2016-10-11] MEDS: ALUMINUM/MAGNESIUM/SIMETH (MAALOX MAX) 30 ML UDC PO PRN (09:26)
[2016-10-11 09:27] LABS: ALLEN TEST POS (POS); ARTERIAL BLOOD GAS BASE EXCESS 12.4 mEq/L (-9-1.8); ARTERIAL BLOOD GAS HCO3 38 mmol/L (19-24); ARTERIAL BLOOD GAS PO2 71 mm/Hg (80-95); ARTERIAL BLOOD GAS pH 7.47 (7.35-7.45); O2 ADMINISTRATION 3L
[2016-10-11 09:30] VITALS: BP 171/96; PULSE 92; TEMP 36.7; O2SAT 93
--- NOTE | 2016-10-11 11:05 | DIAGNOSTIC IMAGING REPORT ---
CHEST ONE VIEW PORTABLE HISTORY: Short of breath. congestive heart failure COMPARISON: Chest 10/09/2016. FINDINGS: No pneumothorax. Trace right pleural effusion, unchanged. The heart remains mildly enlarged. Patchy left basilar densities have progressed. Pulmonary edema has essentially resolved. IMPRESSION: 1. Interval resolution of pulmonary edema. 2. Patchy density within the left lung base which may represent atelectasis or pneumonia. 3. Trace right pleural effusion, unchanged. Electronically signed by: Óscar Justice M.D. 10/11/2016 11:04 AM Dictated Date/Time: 10/11/2016 11:03 AM
--- NOTE | 2016-10-11 13:53 | Progress Note ---
Subjective Date of Service: Oct 11, 2016. Subjective Pt evaluation today including: conversation w/ patient, physical exam, chart review, lab review, review of studies, conversation w/ [facility] consultant, review of inpatient medication list Pt resting in bed comfortably Spoke with son Rik on the phone Reports improvement in shortness of breath No other complaints at this time Problem List Medical Problems: (1) Hypomagnesemia Status: Acute (2) Hypoxia Status: Acute (3) Shortness of breath Status: Acute Review of Systems Constitutional: No chills, No fever Respiratory: No cough, No dyspnea on exertion, No shortness of breath, No sputum, No wheezing Cardiac: + edema, No chest pain, No orthopnea Abdomen: No diarrhea, No pain, No vomiting Musculoskeletal: No joint pain, No muscle pain Male : No dysuria, No urinary frequency Psychiatric: No anhedonism, No depression symptoms Objective Vital Signs Date Time Temp Pulse Resp B/P Pulse Ox O2 Delivery O2 Flow Rate FiO2 10/11/16 09:30 36.7 92 22 171/96 93 Nasal Cannula 3.0 10/11/16 08:00 95 Nasal Cannula 3.0 10/10/16 23:59 36.8 112 20 161/87 91 Nasal Cannula 3.0 10/10/16 23:30 Nasal Cannula 3.0 10/10/16 16:30 Nasal Cannula 3.0 10/10/16 15:24 36.5 110 22 166/94 94 Nasal Cannula 3.0 Physical Exam General Appearance: WD/WN, no apparent distress Neck: supple, no adenopathy Respiratory/Chest: chest non-tender, + decreased breath sounds Cardiovascular: no gallop, no JVD Abdomen: non tender, soft Neurologic/Psychiatric: alert, oriented x 3 Laboratory Results Last 24 Hours Test 10/11/16 08:13 10/11/16 09:15 Sodium Level 139 mmol/L Potassium Level 3.6 mmol/L Chloride Level 94 mmol/L Carbon Dioxide Level 40 mmol/L Anion Gap 5.0 mmol/L Blood Urea Nitrogen 23 mg/dl Creatinine 1.20 mg/dl Est Creatinine Clear Calc Drug Dose 81.7 ml/min Estimated GFR () 69.6 Estimated GFR (Non- 60.1 BUN/Creatinine Ratio 19.2 Random Glucose 95 mg/dl Calcium Level 9.5 mg/dl Total Bilirubin 0.7 mg/dl Aspartate Amino Transf (AST/SGOT) 16 U/L Alanine Aminotransferase (ALT/SGPT) 34 U/L Alkaline Phosphatase 60 U/L Total Protein 7.1 gm/dl Albumin 3.4 gm/dl Globulin 3.7 gm/dl Albumin/Globulin Ratio 0.9 Arterial Blood pH 7.47 Arterial Blood Partial Pressure CO2 54 mmHg Arterial Blood Partial Pressure O2 71 mm/Hg Arterial Blood HCO3 38 mmol/L Arterial Blood Oxygen Saturation 94.0 % Arterial Blood Base Excess 12.4 mEq/L Arterial Blood Gas Delivery 3L [employer] Test POS Assessment and Plan 71 y/o M with Hx HTN, HPL, temporal arteritis, obesity and BETINA. Pt has became progressively SOB over the past few weeks and noted increasing LE edema and weight gain as well. His neighbor is an MD and had evaluated him at home earlier and advise him to attend the hospital. He does not have a history of CHF or AF. He is currently being treated with prednisone and MTX for Temporal Arteritis. SOB - likely multifactorial from BETINA, COPD, and diastolic HF. Pt is receiving diuresis with Lasix - Admitted to telemetry, trops x 3 sets neg, ECHO 55-60% EF , no WMA. Pulm consulted. Thoracic US completed, noted effusions, cont diuresis at this time. Will qualify for home O2 as well. Likely DC in next 24 hrs. Will need to convert IV to PO lasix. Cont Dulera, xopenex, and spiriva. Will need repeat PFTs on DC. KAYKAY - Improving even with IV lasix. Cont to monitor PRP Temporal Arteritis - he states that he failed a taper and has been on prednisone for 1.5 years. Will cont current dose - MTX is administered Q2wks. COPD - Pt is on prednisone regardless and can cont his home inhalers in addition to BiPAP BETINA - has brought his BIPAP with him which we will employ. Pt is FULL CODE
--- NOTE | 2016-10-11 14:17 | PULMONARY PROGRESS NOTE ---
DATE: 10/11/2016 TIME: 01:40 p.m. SUBJECTIVE: The patient is feeling much better. He is less short of breath. He had a fairly good night with his BiPAP. He wore it most of the night. He still feels dry. He has 2 separate masks. I am not certain how we selected which mask to use. He feels that when he opens his mouth, he is having some air leaks with that particular mask he is using. I have reviewed his sleep study initially done 06/15/2016 that did show severe sleep apnea with an apnea-hypopnea index of 46.6. He at first was treated with CPAP, but this did not resolve his sleep apnea. He then went back for a BiPAP study on August 19. PHYSICAL EXAMINATION: GENERAL: The patient appeared comfortable. He did not cough during this exam. Temperature is 36.7. HEENT: Unremarkable. NECK: He does have a very large neck. HEART: Heart rate was 110 per minute. It was somewhat irregular. Blood pressure is 171/96. LUNGS: Lung angulo revealed decreased breath sounds. No active wheezing was heard. Respiratory rate 22 breaths per minute. Saturation 93% on 3 liters. ABDOMEN: Obese and nontender. EXTREMITIES: Showed +1 edema of the lower extremities. The skin was dry. LABORATORY DATA: Blood gas this morning showed a pH of 7.47 with a pCO2 of 54 and a pO2 of 71. This would suggest respiratory acidosis and metabolic alkalosis. The gas was done with 3 liters. Electrolytes show sodium 139, potassium 3.6, chloride 94, and bicarbonate 40. BUN was 23 with a creatinine of 1.2. This was improved compared with 4 days ago when the BUN was 34 and a creatinine 1.6. Chest x-ray was done today. The previously seen interstitial edema has resolved. There are little patchy densities at the left lung base that may reflect some atelectasis or less likely pneumonia. IMPRESSIONS: 1. Obesity hypoventilation syndrome. 2. Chronic obstructive pulmonary disease with exacerbation. 3. Obstructive sleep apnea. 4. Cardiac arrhythmia. COMMENTS AND RECOMMENDATIONS: The patient seems to be doing clinically well. He has had a good diuresis in the last 2 days. Yesterday, he had a negative balance of 2895 mL Somewhat surprisingly, his renal function improved despite the diuresis. We will need to watch his potassium closely. The blood gas showed alkalosis despite a pCO2 of 54. I emphasized to the patient that it is very important that he use his BiPAP every night. I think he is coming to realize that as well. I believe the Dulera should be 2 puffs twice a day upon discharge. I have no objection to discharge in the near future. EMILIA
[2016-10-11 15:38] VITALS: BP 144/85; PULSE 111; TEMP 36.7; O2SAT 94
[2016-10-12 00:14] VITALS: BP 168/72; PULSE 104; TEMP 36.9; O2SAT 94
[2016-10-12 07:27] VITALS: BP 148/93; PULSE 83; TEMP 36.6; O2SAT 95
[2016-10-12] MEDS: VENLAFAXINE HCL XR 75 MG CAPXR PO SCH (07:42)
[2016-10-12] MEDS: VENLAFAXINE HCL XR 150 MG CAPXR PO SCH (07:42)
[2016-10-12] MEDS: TIOTROPIUM BROMIDE 5 PUFF/90 MCG INH INH SCH (07:42)
[2016-10-12] MEDS: TAMSULOSIN HCL 0.4 MG CAP PO SCH (07:42)
[2016-10-12] MEDS: POTASSIUM CHLORIDE 10 MEQ TABCR PO SCH (07:42)
[2016-10-12 07:43] LABS: BASO % 0.4 %; BASO ABS # 0.05 K/uL (0-0.2); COMPLETE YES; EOS % 1.4 %; HEMATOCRIT 44.2 % (42-52); IG% 1.7 %; LYMPH % 16.1 %; LYMPH ABS # 2.12 K/uL (1.2-3.4); MEAN CELL VOLUME 95.3 fL (80-100); MEAN CORPUSCULAR HEMOGLOBIN 31.3 pg (25-34); MEAN CORPUSCULAR HGB CONC 32.8 g/dl (32-36); MEAN PLATELET VOLUME 9.7 fL (7.4-10.4); MONO % 11.2 %; NEUT % 69.2 %; PLATELET COUNT 264 K/uL (130-400); RED BLOOD COUNT 4.64 M/uL (4.7-6.1); WHITE BLOOD COUNT 13.17 K/uL (4.8-10.8)
[2016-10-12] MEDS: PANTOprazole SOD 40 MG TAB PO SCH ×2 (07:43→19:25)
[2016-10-12] MEDS: CHOLECALCIFEROL 1000 INTER.UNIT TAB PO SCH (07:43)
[2016-10-12] MEDS: SIMVASTATIN 40 MG TAB PO SCH (07:43)
[2016-10-12] MEDS: MOMETASONE FUROATE-FORMOTEROL (DULERA) 200mcg/5mcg per inh INH SCH ×2 (07:44→19:26)
[2016-10-12 08:19] LABS: BUN/CREATININE RATIO 20.5 (10-20); CALCIUM 9.5 mg/dl (8.5-10.1); CREATININE 1.2 mg/dl (0.60-1.40); POTASSIUM 3.3 mmol/L (3.5-5.1)
[2016-10-12] MEDS: FUROSEMIDE INJ 40 MG in SYRINGE 0 ML IV SCH (09:56)
[2016-10-12 11:43] VITALS: O2SAT 82
--- NOTE | 2016-10-12 14:35 | Hospitalist Progress Note ---
Hospitalist Progress Note Date of Service Oct 12, 2016. Subjective Pt evaluation today including: conversation w/ patient, physical exam, chart review, lab review, review of studies, review of inpatient medication list Patient had no acute issues Patient states SOB has improved Wei any chest pain, Constitutional: No fever Eyes: No worsening of vision ENT: No hearing loss, No nasal symptoms Respiratory: + dyspnea on exertion, + shortness of breath, No cough, No sputum, No wheezing Cardiovascular: No PND, No chest pain, No claudication Abdomen: No constipation, No diarrhea, No pain, No vomiting Musculoskeletal: No joint pain Male : No dysuria Neurologic: No memory loss Psychiatric: No depression symptoms Medications Current Inpatient Medications Medications (Trade) Dose Ordered Sig/Simon Route Start Time Stop Time Status Last Admin Dose Admin Cholecalciferol (Vitamin D Tab) 1,000 inter.unit DAILY PO 10/05/16 09:00 11/04/16 08:59 10/12/16 07:43 1,000 INTER.UNIT Folic Acid (Folvite Tab) 1 mg DAILY PO 10/05/16 09:00 11/04/16 08:59 10/12/16 07:42 1 MG Simvastatin (Zocor Tab) 40 mg DAILY PO 10/05/16 09:00 11/04/16 08:59 10/12/16 07:43 40 MG Tamsulosin HCl (Flomax Cap) 0.4 mg DAILY PO 10/05/16 09:00 11/04/16 08:59 10/12/16 07:42 0.4 MG Tiotropium [place] (Spiriva Handihaler Inhaler) 1 puff DAILY INH 10/05/16 09:00 11/04/16 08:59 10/12/16 07:42 1 PUFF Venlafaxine HCl (effeXOR EXTENDED REL CAP) 75 mg DAILY PO 10/05/16 09:00 11/04/16 08:59 10/12/16 07:42 75 MG Venlafaxine HCl (effeXOR EXTENDED REL CAP) 150 mg DAILY PO 10/05/16 09:00 11/04/16 08:59 10/12/16 07:42 150 MG Acetaminophen (Tylenol Tab) 650 mg Q4H PRN PO 10/05/16 00:00 11/04/16 00:00 Al Hydrox/Mg Hydrox/Simethicone (Maalox Max Susp) 15 ml Q4H PRN PO 10/05/16 00:00 11/04/16 00:00 10/11/16 09:26 15 ML Magnesium Hydroxide (Milk Of Magnesia Susp) 30 ml Q12H PRN PO 10/05/16 00:00 11/04/16 00:00 10/09/16 08:22 30 ML Ondansetron HCl (Zofran Inj) 4 mg Q6H PRN IV 10/05/16 00:00 11/04/16 00:00 10/06/16 05:42 4 MG Nitroglycerin (Nitroglycerin 2% Oint) 1 inch Q6 EXT 10/05/16 07:30 11/04/16 07:29 Future Hold 10/06/16 13:05 1 INCH Morphine Sulfate (MoRPHine SULFATE INJ) 2 mg Q30M PRN IV 10/05/16 00:00 10/19/16 00:00 Polyethylene (Miralax Powder Packet) 17 gm DAILY PRN PO 10/05/16 00:00 11/04/16 00:00 10/09/16 08:22 17 GM Potassium Chloride (Klor-Con M10) 10 meq BIDM PO 10/05/16 08:00 11/04/16 07:59 10/12/16 07:42 10 MEQ Metoprolol Tartrate (Lopressor Tab) 12.5 mg TID PO 10/05/16 12:00 11/04/16 11:59 Future Hold 10/06/16 14:20 12.5 MG Lisinopril (Zestril Tab) 10 mg QAM PO 10/06/16 09:00 11/05/16 08:59 Future Hold 10/06/16 09:06 10 MG Heparin Sodium (Porcine) (Heparin Sq 5000 Unit/0.5ml) 5,000 unit Q8 SQ 10/06/16 14:00 11/05/16 13:59 Future Hold 10/07/16 13:07 5,000 UNIT Pantoprazole Sodium (Protonix Tab) 40 mg BID PO 10/07/16 20:00 11/06/16 19:59 10/12/16 07:43 40 MG Mometasone Furoate/ Formoterol Fumar (Dulera) 1 ea BID INH 10/08/16 20:00 11/07/16 19:59 10/12/16 07:44 1 EA Levalbuterol (Xopenex Hfa Inhaler) 2 puffs QID PRN INH 10/08/16 13:15 11/07/16 13:14 Prednisone (PredniSONE TAB) 20 mg DAILY PO 10/10/16 08:00 11/09/16 07:59 10/12/16 07:43 20 MG Furosemide (Lasix Tab) 40 mg BID17 PO 10/12/16 17:00 11/11/16 16:59 Objective Vital Signs Date Time Temp Pulse Resp B/P Pulse Ox O2 Delivery O2 Flow Rate FiO2 10/12/16 11:43 82 Room Air 10/12/16 07:30 Nasal Cannula 3.0 10/12/16 07:27 36.6 83 20 148/93 95 Nasal Cannula 3.0 10/12/16 01:30 Nasal Cannula 3.0 10/12/16 00:14 36.9 104 22 168/72 94 Nasal Cannula 3.0 10/11/16 21:08 Nasal Cannula 3.0 10/11/16 16:00 Nasal Cannula 3.0 10/11/16 15:38 36.7 111 20 144/85 94 Nasal Cannula 3.0 Physical Exam General Appearance: WD/WN, no apparent distress, + obese Eyes: normal inspection ENT: normal ENT inspection Neck: supple, no adenopathy Respiratory/Chest: chest non-tender, lungs clear, normal breath sounds Cardiovascular: regular rate, rhythm, no edema Abdomen: normal bowel sounds, non tender, soft Extremities: normal range of motion, non-tender Neurologic/Psychiatric: aids nurse II-XII nml as tested, no motor/sensory deficits, alert, oriented x 3 Laboratory Results Last 24 Hours Test 10/12/16 07:16 White Blood Count 13.17 K/uL Red Blood Count 4.64 M/uL Hemoglobin 14.5 g/dL Hematocrit 44.2 % Mean Corpuscular Volume 95.3 fL Mean Corpuscular Hemoglobin 31.3 pg Mean Corpuscular Hemoglobin Concent 32.8 g/dl Platelet Count 264 K/uL Mean Platelet Volume 9.7 fL Neutrophils (%) (Auto) 69.2 % Lymphocytes (%) (Auto) 16.1 % Monocytes (%) (Auto) 11.2 % Eosinophils (%) (Auto) 1.4 % Basophils (%) (Auto) 0.4 % Neutrophils # (Auto) 9.11 K/uL Lymphocytes # (Auto) 2.12 K/uL Monocytes # (Auto) 1.48 K/uL Eosinophils # (Auto) 0.18 K/uL Basophils # (Auto) 0.05 K/uL RDW Standard Deviation 64.7 fL RDW Coefficient of Variation 18.9 % Immature Granulocyte % (Auto) 1.7 % Immature Granulocyte # (Auto) 0.23 K/uL Sodium Level 138 mmol/L Potassium Level 3.3 mmol/L Chloride Level 95 mmol/L Carbon Dioxide Level 38 mmol/L Anion Gap 5.0 mmol/L Blood Urea Nitrogen 25 mg/dl Creatinine 1.20 mg/dl Est Creatinine Clear Calc Drug Dose 80.9 ml/min Estimated GFR () 69.6 Estimated GFR (Non- 60.1 BUN/Creatinine Ratio 20.5 Random Glucose 96 mg/dl Calcium Level 9.5 mg/dl Assessment and Plan 71 y/o M with Hx HTN, HPL, temporal arteritis, obesity and BETINA. Pt has became progressively SOB over the past few weeks and noted increasing LE edema and weight gain as well. His neighbor is an MD and had evaluated him at home earlier and advise him to attend the hospital. He does not have a history of CHF or AF. He is currently being treated with prednisone and MTX for Temporal Arteritis. Acute Decompensated Diastolic CHF - d/c IV lasix switch to lasix 40 mg bid - blood pressure control - strict I/O's COPD Exacerbation - improved - continue 20 mg prednisone kate per outpatient rheumatology/decrease by 2.5 mg q2 weeks( patient is on prolonged taper due to temporal arteritis) -Cont Dulera, xopenex, and spiriva. Will need repeat PFTs on DC - outpatient pul f/u Chronic Hypoxic respiratory failure - on 2-3 L at rest - CM arrangin home O2/2 step in am KAYKAY - resolved Temporal Arteritis - continue prednisone - follows up with rheumatology as outpatient - MTX is administered Q2wks. BETINA - on home CPAP Disposition- home in am - would like to monitor patient on po diuretics Pt is FULL CODE
[2016-10-12 16:00] VITALS: BP 123/79; PULSE 95; TEMP 36.8; O2SAT 94
[2016-10-12] MEDS: FUROSEMIDE 40 MG TAB PO SCH (17:40)
[2016-10-12] MEDS: POTASSIUM CHLORIDE 20 MEQ TABCR PO SCH (17:40)
[2016-10-13] VITALS: BP 128/69; PULSE 106; TEMP 36.5; O2SAT 95
[2016-10-13 07:54] VITALS: BP 148/83; PULSE 64; TEMP 36.7; O2SAT 94
[2016-10-13] MEDS: MOMETASONE FUROATE-FORMOTEROL (DULERA) 200mcg/5mcg per inh INH SCH (08:18)
[2016-10-13] MEDS: TIOTROPIUM BROMIDE 5 PUFF/90 MCG INH INH SCH (08:18)
[2016-10-13] MEDS: VENLAFAXINE HCL XR 150 MG CAPXR PO SCH (08:19)
[2016-10-13] MEDS: VENLAFAXINE HCL XR 75 MG CAPXR PO SCH (08:19)
[2016-10-13] MEDS: TAMSULOSIN HCL 0.4 MG CAP PO SCH (08:20)
[2016-10-13] MEDS: SIMVASTATIN 40 MG TAB PO SCH (08:21)
[2016-10-13] MEDS: CHOLECALCIFEROL 1000 INTER.UNIT TAB PO SCH (08:21)
[2016-10-13] MEDS: POTASSIUM CHLORIDE 20 MEQ TABCR PO SCH (08:21)
[2016-10-13] MEDS: PANTOprazole SOD 40 MG TAB PO SCH (08:21)
[2016-10-13] MEDS: FUROSEMIDE 40 MG TAB PO SCH (08:22)
[2016-10-13 09:15] LABS: HEMATOCRIT 45.1 % (42-52); MEAN CORPUSCULAR HEMOGLOBIN 31.3 pg (25-34); MEAN CORPUSCULAR HGB CONC 32.6 g/dl (32-36); MEAN PLATELET VOLUME 9.7 fL (7.4-10.4); PLATELET COUNT 263 K/uL (130-400); WHITE BLOOD COUNT 15.85 K/uL (4.8-10.8)
[2016-10-13 09:50] LABS: CALCIUM 9.3 mg/dl (8.5-10.1); CREATININE 1.3 mg/dl (0.60-1.40); POTASSIUM 3.7 mmol/L (3.5-5.1)
[2016-10-13 09:51] LABS: BASO ABS # 0.29 K/uL (0-0.2); BASOPHIL % 1.8 % (0-2); COMPLETE YES; LYMPHOCYTE % 15.8 %; MYELOCYTE % 0.9 %; NEUTROPHILS % 68.3 %
[2016-10-13] MEDS ORDERED: MCRK20 PO (12:56)
[2016-10-13] MEDS ORDERED: PRD20 PO (12:56)
[2016-10-13] MEDS ORDERED: LSX40 PO (12:56)
--- NOTE | 2016-10-13 12:57 | Discharge Instructions ---
Discharge Instructions Admission Admission Date: Oct 04, 2016 at 23:57 Admission Diagnosis: Acute Chf, Atrial Fibrillation. Discharge Care Plan - Problem: Medical Problems: (1) Hypomagnesemia (2) Hypoxia (3) Shortness of breath Care Plan - Goal(s): Decrease discomfort, Improve function Care Plan - Instructions: Activity Recommendations: no limitations Recommended Home Diet: AHA Phase I (2gmNa/LoCho) VTE Core Measure Inpt VTE Proph given/why not?: Other Anticoagulation Follow Up Follow-Up: Please have a BMP drawn at your primary care office in 1 week Please follow up with your PCP in 1 week Adriana Williamson Recommendations: Call your doctor if: * Temperature above 101 degrees * Pain not relieved by pain medicine ordered * There is increased drainage or redness from any incision * You have any unanswered questions or concerns. Your Doctors Instructions noted above were prepared by provider Kenyetta Cordon.
[2016-10-13 13:10] VITALS: BP 148/83; PULSE 64; TEMP 36.7; O2SAT 94
--- NOTE | 2016-10-14 07:59 | Discharge Summary ---
Discharge Summary Date of Service Oct 14, 2016. Discharge Summary Admission Date: Oct 04, 2016 at 23:57 Discharge Date: Oct 13, 2016 Discharge Disposition: Home Principal Diagnosis: Acute decompensated CHF/COPD Consultations: Pulmonary Medication Reconciliation New Medications: Furosemide (Furosemide) 40 Mg Tab 40 MG PO BID17 for 30 Days, #60 TAB Potassium Chloride (Klor-Con M20) 20 Meq Tabcr 40 MEQ PO DAILY for 30 Days, #30 Prednisone (Prednisone) 20 Mg Tab 20 MG PO DAILY for 14 Days, #14 TAB 0 Refills Continued Medications: Albuterol Hfa (Ventolin Hfa) 200 Puffs/50041 Mcg Aers 2 PUFFS INH PT LIST, #18 Cholecalciferol (Vitamin D-1000) 1,000 Unit Tab 100 UNITS PO DAILY Folic Acid (Folic Acid) 1 Mg Tab 1 MG PO DAILY, #90 Hctz/Spironolactone (Spironolactone/Hydrochlor 25-25 mg) 1 Ea Tab 2 TAB PO BID Methotrexate (Methotrexate) 2.5 Mg Tab 3 TAB PO UD, #78 WITH LUNCH & DINNER Mometasone Furoate-Formoterol (Dulera 200/5 Mcg) 1 Aer Aer 1 PUFF INH Q12, #39 Simvastatin (Simvastatin) 40 Mg Tab 40 MG PO DAILY, #90 Tamsulosin HCl (Tamsulosin HCl) 0.4 Mg Cap 0.4 MG PO DAILY, #90 Tiotropium [place] (Spiriva Handihaler) 30 Puff/540 Mcg Aerp 1 PUFF INH DAILY, #90 Venlafaxine Hcl (Venlafaxine Hcl Er) 150 Mg Tab 150 MG PO DAILY Venlafaxine Hcl (Effexor Extended Rel) 75 Mg Capcr 75 MG PO DAILY, #90 Discontinued Medications: Prednisone (Prednisone) 10 Mg Tab 30 MG PO TAPER UD, #100 Discharge Exam Review of Systems: Constitutional: No chills Eyes: No worsening of vision ENT: No unusual epistaxis Respiratory: + shortness of breath, No sputum Cardiovascular: No chest pain Abdomen: No nausea Musculoskeletal: No joint pain Genitourinary - Male: No hematuria Neurologic: No memory loss Psychiatric: No depression symptoms Endocrine: No fatigue Physical Exam: General Appearance: WD/WN, no apparent distress, + obese Eyes: normal inspection ENT: normal ENT inspection Neck: supple, no adenopathy Respiratory/Chest: chest non-tender, + decreased breath sounds Cardiovascular: regular rate, rhythm, no edema Abdomen / GI: normal bowel sounds, non tender, soft Neurologic/Psychiatric: building pressure washer II-XII nml as tested, no motor/sensory deficits , alert, oriented x 3 Hospital Course 71 y/o M with Hx HTN, HPL, temporal arteritis, obesity and BETINA. Pt has became progressively SOB over the past few weeks and noted increasing LE edema and weight gain as well. His neighbor is an MD and had evaluated him at home earlier and advise him to attend the hospital. He does not have a history of CHF or AF. He is currently being treated with prednisone and MTX for Temporal Arteritis. Acute Decompensated Diastolic CHF - started on lasix 40 mg bid - counseled on fluid restriction and diet control - blood pressure control - strict I/O's COPD Exacerbation - improved/given IV steroids and nebulizers during hospital stay - pulmonary was consulted - continue 20 mg prednisone kate per outpatient rheumatology/decrease by 2.5 mg q2 weeks( patient is on prolonged taper due to temporal arteritis) -Cont Dulera, xopenex, and spiriva. Will need repeat PFTs on DC - outpatient pul f/u Chronic Hypoxic respiratory failure - on 2-3 L at rest baseline - CM arranged home O2 KAYKAY - resolved with IV fluid hydration Temporal Arteritis - continued prednisone - follows up with rheumatology as outpatient - MTX is administered Q2wks. BETINA - on home CPAP Disposition- home in am Pt is FULL CODE Total Time Spent: Greater than 30 minutes This includes examination of the patient, discharge planning, medication reconciliation, and communication with other providers. Discharge Instructions Please refer to the electronic Patient Visit Report (Discharge Instructions) for additional information. Follow-Up PCP in 1 week for BMP Additional Copies To Ovidio Donovan M.D.
[2016-12-04] MEDS ORDERED: POTASSIUM CHLORIDE PO (12:15)
[2016-12-04] MEDS ORDERED: SPIR25TA PO (12:15)
[2016-12-04] MEDS ORDERED: ASPI81TA28 PO (12:15)
[2016-12-04] MEDS ORDERED: MOME100A INH (12:15)
[2016-12-04] MEDS ORDERED: PANT40TA PO (12:15)
[2016-12-04] MEDS ORDERED: PRED20TA2 PO (12:15)
[2016-12-04] MEDS ORDERED: FRS/40 PO (12:15)
[2016-12-04] MEDS ORDERED: OXGN (12:20)
[2016-12-09] MEDS ORDERED: PRED10TA PO (10:23)
== END 2016-10-13 15:15 | disposition home health service (06) | DRG 308 ==
LOC: CANRESERV → ENRESERVDT → ENRESERVTM → C.EDB 20:24 → C.EDINP 23:57 → C.MED 10-05 08:19 → CANBEDREQ 10-06 14:54 → C.MS4W 10-06 22:45
PROVIDERS: ADMIT Internal Medicine; ATTEND Hospitalist
DX: I48.91 Unspecified atrial fibrillation (principal); I50.31 Acute diastolic (congestive) heart failure; N17.9 Acute kidney failure, unspecified; J44.1 Chronic obstructive pulmonary disease with (acute) exacerbation; Z68.41 Body mass index [BMI] 40.0-44.9, adult; E66.2 Morbid (severe) obesity with alveolar hypoventilation; J96.11 Chronic respiratory failure with hypoxia; F32.9 Major depressive disorder, single episode, unspecified; Z87.891 Personal history of nicotine dependence; E83.42 Hypomagnesemia; Z85.46 Personal history of malignant neoplasm of prostate; M31.6 Other giant cell arteritis; I10 Essential (primary) hypertension; Z79.52 Long term (current) use of systemic steroids

== ENCOUNTER → 2016-10-20 | Outpatient (CLI) | payer OTHER, MEDICARE ==
[~2016-10-20] MED LIST changes: -ALBUAER2 INH; +ASPI81TA28 PO; +CHOL100040 PO; +EFFSR75 PO; +FLM4 PO; +FLV1 PO; +FRS/40 PO; -LISI-787 PO; +LSX40 PO; +MCRK20 PO; +MOME100A INH; +MOME200A INH; +MTH25 PO; +OXGN; +PANT40TA PO; +POTASSIUM CHLORIDE PO; +PRD20 PO; +PRED10TA PO; -SIMV40TA4 PO; +SPIR1TAB72 PO; +SPIR25TA PO; +SPRIN/30 INH; -TIOTCAP INH; -TRAZ50TA35 PO; +VNTHFA/IN INH; +ZCR40 PO
[2016-10-20 14:46] LABS: BASO % 0.5 %; BASO ABS # 0.08 K/uL (0-0.2); COMPLETE YES; EOS % 0.9 %; IG% 1.3 %; LYMPH % 12.5 %; LYMPH ABS # 1.88 K/uL (1.2-3.4); MEAN CELL VOLUME 93.8 fL (80-100); MEAN CORPUSCULAR HEMOGLOBIN 31.3 pg (25-34); MEAN CORPUSCULAR HGB CONC 33.3 g/dl (32-36); MEAN PLATELET VOLUME 10.4 fL (7.4-10.4); MONO % 9.4 %; NEUT % 75.4 %; PLATELET COUNT 292 K/uL (130-400); RED BLOOD COUNT 5.12 M/uL (4.7-6.1); WHITE BLOOD COUNT 14.99 K/uL (4.8-10.8)
[2016-10-20 15:43] LABS: BLOOD UREA NITROGEN 33 mg/dl (7-18); BUN/CREATININE RATIO 22.1 (10-20); CALCIUM 10.9 mg/dl (8.5-10.1); CARBON DIOXIDE 41 mmol/L (21-32); CHLORIDE 85 mmol/L (98-107); GLUCOSE 112 mg/dl (70-99); POTASSIUM 2.7 mmol/L (3.5-5.1); SODIUM 139 mmol/L (136-145)
[2016-10-21 07:05] LABS: ESTIMATED AVERAGE GLUCOSE 143 mg/dl; HA1C FLAG Normal (Normal)
== END | disposition home or self-care (01) ==
LOC: C.LAB1850 13:38
PROVIDERS: ATTEND Internal Medicine
DX: R73.9 Hyperglycemia, unspecified (principal)

== ENCOUNTER → 2016-11-17 | Outpatient (CLI) | payer OTHER, MEDICARE ==
[~2016-11-17] VITALS: Ht 185.4 cm; Wt 135.2 kg
[2016-11-17 15:16] VITALS: BP 121/77; PULSE 74; Ht 185.4 cm; Wt 135.2 kg
== END | disposition home or self-care (01) ==
LOC: C.NEUR 13:33
PROVIDERS: ATTEND Internal Medicine Pulmonary Disease
DX: G47.30 Sleep apnea, unspecified (principal); I27.81 Cor pulmonale (chronic); I50.9 Heart failure, unspecified; J44.9 Chronic obstructive pulmonary disease, unspecified; R06.02 Shortness of breath

== ENCOUNTER → 2016-11-17 | Outpatient (CLI) | payer OTHER, MEDICARE ==
--- NOTE | 2016-11-17 16:11 | DIAGNOSTIC IMAGING REPORT ---
CHEST 2 VIEWS ROUTINE HISTORY: R06.02 Shortness of breath on [id number] COMPARISON: Chest 10/11/2016. FINDINGS: No change in the mild bibasilar interstitial thickening, left greater than right. This likely represents chronic change. The heart remains mildly enlarged. Stable mediastinal widening. No pleural effusions. No pneumothorax. Punctate density within the left lung apex likely represents a calcified granuloma. No evidence for pulmonary edema. No new focal lung consolidations. IMPRESSION: No significant change compared to the prior study. No acute process. Electronically signed by: Óscar Justice M.D. 11/17/2016 4:10 PM Dictated Date/Time: 11/17/2016 4:07 PM
== END | disposition home or self-care (01) ==
LOC: C.RAD 15:09
PROVIDERS: ATTEND Internal Medicine
DX: R06.02 Shortness of breath (principal)

== ENCOUNTER → 2016-12-01 | Outpatient (CLI) | payer OTHER, MEDICARE ==
--- NOTE | 2016-12-01 14:32 | DIAGNOSTIC IMAGING REPORT ---
VIDEO SWALLOW HISTORY: K30 [id number] Regurgitation TECHNIQUE: Video fluoroscopic evaluation of swallowing was performed in the AP and lateral projections by the speech pathology staff. The patient is fed nectar-thick and thin liquid barium, a barium coated wafer, and barium pudding. FLUOROSCOPY TIME: 1.9 minutes. A cine loop submitted. COMPARISON STUDY: None. FINDINGS: Severe esophageal dysmotility. Suboptimal epiglottic deflection resulting in a few episodes of deep penetration. However, no aspiration identified. IMPRESSION: 1. Severe esophageal dysmotility. No aspiration. 2. Please see the speech pathologist report for detailed findings and recommendations. Electronically signed by: Óscar Justice M.D. 12/01/2016 2:30 PM Dictated Date/Time: 12/01/2016 2:28 PM
--- NOTE | 2016-12-01 14:54 | SWALLOWING EVALUATION ---
HISTORY: This 71 year old man was referred for a video swallow study at [facility] in order to rule out aspiration and identify the safest consistencies for optimal oral intake. The patient reported that he feels that food becomes stuck in his throat and esophagus, and that he has to bring it back up and expectorate it frequently. He reports that this has been occurring more frequently over the past 2-3 weeks. PMH is significant for COPD, depressive disorder, prostate cancer, hypertension, hyperlipidemia, and obesity. He participated in an Upper GI/Barium Swallow study on 03/19/16 which revealed esophageal dysmotility, a patulous esophagus, and a questionable left sided cervical esophageal deformity. Current diet is regular. PROCEDURE: The patient was seen in the Radiology Department of [facility] for the VFSS. Cursory examination of the oral cavity revealed natural dentition in fair condition, missing molars. Movement of the articulators was wnl. The patient was seated upright in a wheelchair and was viewed in both the Anterior-Posterior (A-P) and Lateral planes. Volitional phonation exercises completed in the A-P plane revealed bilateral vocal fold movement and vocal intensity within functional limits. In the lateral plane, the patient was given the following boluses: 1 tsp. thin liquid barium x 2, single swallow thin liquid barium self-presented from a cup, serial swallows of thin liquid barium self-presented via straw, 1 tsp. nectar-thick liquid barium, single swallow nectar-thick liquid barium self-presented from a cup, 1 tsp. barium pudding, and 1 club cracker with barium paste. The patient was then repositioned into the A-P plane and given the following bolus: 1 tsp. nectar-thick liquid barium. RESULTS: Oral Stage: Lip closure was adequate. The patient was unable to maintain a cohesive liquid bolus upon command as evidenced by premature spillage of less than half of the bolus. Mastication was slow. Lingual motion for bolus transport was also slow. There was retention lining the tongue and palate after the swallow. The initiation of the pharyngeal swallow was delayed, and triggered when the bolus head reached the pyriforms. Pharyngeal Stage: Soft palate elevation was complete. Laryngeal elevation revealed partial superior movement of the thyroid cartilage and partial approximation of the arytenoids to the epiglottic base. Anterior hyoid excursion was partially reduced. Epiglottic deflection was partially reduced. Laryngeal vestibular closure was incomplete, with a narrow column of contrast being located in the vestibule at the height of the swallow. The pharyngeal stripping wave was present yet diminished. Pharyngeal contraction was complete. The opening to the pharyngoesophageal segment (PES) was partially reduced, with partial distention and duration of the opening. Tongue base retraction was minimally reduced, with a trace column of contrast being located between the tongue base and pharyngeal wall during the swallow. There was retention along the tongue base and in the valleculae after the swallow. The patient did not aspirate during the study but did have laryngeal penetration of thin liquids with serial swallows. This redirected and again no aspiration was identified. This was due to delayed swallowing and reduced epiglottic deflection. He required 2 swallows to clear retention along the tongue base and valleculae which was effective to clear and independently generated. Esophageal stage: There was significant esophageal retention with minimal clearance when viewed in the A-P plane. Small amounts of the barium did appear to pass into the stomach slowly. Retrograde flow through the PES was noted. In the lateral view, retrograde motion of the cracker was noted through the PES as well and the cracker appeared in the pyriforms. The patient generated a swallow which assisted for it to clear. SUMMARY/RECOMMENDATIONS: This patient presents mild to moderate mj-pharyngeal dysphagia. He also presented with significant esophageal dysfunction. While he did not aspirate during this study, his noted esophageal dysfunction places him at HIGH aspiration risk of aspiration if the esophagus does not clear fully and effectively (which it was not noted to do for this study). MINCING MACHINE OPERATOR discussed results above with regard to the patient's significant esophageal difficulties and suggested evaluation in the ED and follow up with GI for further assessment and possible need for testing. He reported verbal understanding but did not wish to be assessed in the ED or be admitted to the hospital at this time. He was agreeable to MINCING MACHINE OPERATOR contacting the PCP with results and MINCING MACHINE OPERATOR recommendation to call his PCP ELVA for follow up, and should he experience any more issues to return to the ED for assessment. He had been able to eat/drink some foods and liquid at home and reports he is able to tolerate (does have good sensation), but the amount he is able to tolerate at one time is limited. He currently takes medication which he feels is helpful as well for management of his reflux symptoms. He does not lay flat and states he has not "for years" due to history of reflux. The following is recommended: 1. FULL liquid diet. 2. STRICT Aspiration and GERD precautions. Fully upright for all p.o. intake and for 30-60 minutes after meals. Do not lay flat. Must be upright at all times to include while asleep, to at least 30-45 degrees. 3. Safe swallow strategies: VERY SMALL frequent meals (5-6/day), with single sips. Frequent rest breaks. 4. Follow up with PCP ELVA and consider GI consult for further testing. Dr. Donovan's office was contacted immediately following the study with results and recommendations. Spoke with Dr. Donovan's Triage Nurse who stated she will relay this information to the Physician as soon as possible. Thank you for referral of this patient. Please contact me at if any additional information is needed.
== END | disposition home or self-care (01) ==
LOC: C.RAD 13:28
PROVIDERS: ATTEND Internal Medicine
DX: R13.12 Dysphagia, oropharyngeal phase (principal); K22.4 Dyskinesia of esophagus; K30 Functional dyspepsia; R11.10 Vomiting, unspecified

== ENCOUNTER → 2016-12-09 | Day surgery (SDC) | payer OTHER, MEDICARE ==
[2016-12-04 11:58] VITALS: Ht 185.4 cm; Wt 131.8 kg
[~2016-12-09] VITALS: Ht 185.4 cm; Wt 131.8 kg
[~2016-12-09] MED LIST changes: +LIDOCAINE HCL 2% 2 ML VIAL (20MG/ML) ONE; -LSX40 PO; -MCRK20 PO; -MOME200A INH; -PRD20 PO; +PROPOFOL IV EMULSION 10 MG/ML 20 ML VIAL IV ONE; +SODIUM CHLORIDE 0.9% 500ML 500 ML IV ONE; -SPIR1TAB72 PO
--- NOTE | 2016-12-09 10:38 | Endo History and Physical ---
History & Physical Date of Service: Dec 09, 2016. Chief Complaint: abnormal Barium swallow Referring Physician: Dr. Ovidio Donovan History of Present Illness 71 yo CM who presents for EGD secondary to dysphagia. Past Medical History Arthritis, Male Genitourinary Prob., Anxiety, Cancer, High Cholesterol, Hypertension, COPD, Depression Past Surgical History Hx Cardiac Surgery: No Hx Internal Defibrillator: No Hx Pacemaker: No Hx Abdominal Surgery: No Hx of Implantable Prosthesis: No Hx Post-Op Nausea and Vomiting: No Hx Cancer Surgery: No Hx Thoracic Surgery: No Hx Orthopedic: Yes (RT BIG TOE SURGERY, LT/RT SHOULDER) Hx Urinary Tract Surgery: No Family History None Social History Smoking Status: Former Smoker Hx Substance Use: No Hx Alcohol Use: Yes (QUIT 20+ YEARS AGO) Allergies Coded Allergies: No Known Allergies (Verified , 12/04/16) Current Medications Reported Home Medications Medications Dose Route/Sig Max Daily Dose Days Date Category Dose Instructions Prednisone 10 Mg Tab 17.5 Mg PO DAILY 12/09/16 Reported Oxygen Gas 3 Liters NA CONTINOUS 12/04/16 Reported Dulera 100/5 Mcg (Mometasone Furoate-Formoterol) 1 Aer Aer 2 Puffs INH BID 12/04/16 Reported Aldactone (Spironolactone) 25 Mg Tab 25 Mg PO BID 12/04/16 Reported [Potassium Chloride] 40 Meq PO BID 12/04/16 Reported Protonix (Pantoprazole Sodium) 40 Mg Tab 40 Mg PO BID 12/04/16 Reported Lasix (Furosemide) 40 Mg Tab 40 Mg PO BID 12/04/16 Reported Aspirin Ec (Aspirin) 81 Mg Tab 81 Mg PO QAM 12/04/16 Reported Vitamin D-1000 (Cholecalciferol) 1,000 Unit Tab 100 Units PO QAM 10/04/16 Reported Folic Acid 1 Mg Tab 1 Mg PO QAM 10/04/16 Reported Methotrexate 2.5 Mg Tab 3 Tab PO UD 10/04/16 Reported WITH LUNCH & DINNER ON FRIDAYS Tamsulosin HCl 0.4 Mg Cap 0.4 Mg PO QAM 10/04/16 Reported Effexor Extended Rel (Venlafaxine Hcl) 75 Mg Capcr 75 Mg PO QAM 10/04/16 Reported Simvastatin 40 Mg Tab 40 Mg PO QAM 10/04/16 Reported Ventolin Hfa (Albuterol) 200 Puffs/73502 Mcg Aers 2 Puffs INH Q4H PRN 10/04/16 Reported Spiriva Handihaler (Tiotropium [place]) 30 Puff/540 Mcg Aerp 1 Puff INH BID 10/04/16 Reported Venlafaxine Hcl Er (Venlafaxine Hcl) 150 Mg Tab 150 Mg PO QAM 04/01/14 Reported Vital Signs Weight (Kilograms): 131.82 Height (Feet): 6 Height (Inches): 1 Date Time Temp Pulse Resp B/P Pulse Ox O2 Delivery O2 Flow Rate FiO2 12/09/16 10:31 36.7 94 22 150/86 95 Nasal Cannula 3 Physical Exam General Appearance: WD/WN, no apparent distress Respiratory/Chest: Auscultation: breath sounds normal Cardiovascular: Heart Auscultation: RRR Abdomen: Bowel Sounds: normal Inspection & Palpation: soft, non-distended, no tenderness, guarding & rebound Assessment and Plan Assessment: 71 yo CM who presents for EGD secondary to dysphagia. Plan: Proceed with EGD.
--- NOTE | 2016-12-09 11:13 | Discharge Instructions ---
Endoscopy Patient Instructions Date / Procedure(s) Performed Dec 09, 2016. EGD Allergy Information Coded Allergies: No Known Allergies (Verified , 12/04/16) Discharge Date / Findings Dec 09, 2016. Brushings for Shazia esophagitis Retained food in stomach Medication Instructions Stopped Medication(s): took ASA yesterday OK to resume all medications today as prescribed Reported Home Medications Medications Dose Route/Sig Max Daily Dose Days Date Category Dose Instructions Prednisone 10 Mg Tab 17.5 Mg PO DAILY 12/09/16 Reported Oxygen Gas 3 Liters NA CONTINOUS 12/04/16 Reported Dulera 100/5 Mcg (Mometasone Furoate-Formoterol) 1 Aer Aer 2 Puffs INH BID 12/04/16 Reported Aldactone (Spironolactone) 25 Mg Tab 25 Mg PO BID 12/04/16 Reported [Potassium Chloride] 40 Meq PO BID 12/04/16 Reported Protonix (Pantoprazole Sodium) 40 Mg Tab 40 Mg PO BID 12/04/16 Reported Lasix (Furosemide) 40 Mg Tab 40 Mg PO BID 12/04/16 Reported Aspirin Ec (Aspirin) 81 Mg Tab 81 Mg PO QAM 12/04/16 Reported Vitamin D-1000 (Cholecalciferol) 1,000 Unit Tab 100 Units PO QAM 10/04/16 Reported Folic Acid 1 Mg Tab 1 Mg PO QAM 10/04/16 Reported Methotrexate 2.5 Mg Tab 3 Tab PO UD 10/04/16 Reported WITH LUNCH & DINNER ON FRIDAYS Tamsulosin HCl 0.4 Mg Cap 0.4 Mg PO QAM 10/04/16 Reported Effexor Extended Rel (Venlafaxine Hcl) 75 Mg Capcr 75 Mg PO QAM 10/04/16 Reported Simvastatin 40 Mg Tab 40 Mg PO QAM 10/04/16 Reported Ventolin Hfa (Albuterol) 200 Puffs/77542 Mcg Aers 2 Puffs INH Q4H PRN 10/04/16 Reported Spiriva Handihaler (Tiotropium [place]) 30 Puff/540 Mcg Aerp 1 Puff INH BID 10/04/16 Reported Venlafaxine Hcl Er (Venlafaxine Hcl) 150 Mg Tab 150 Mg PO QAM 04/01/14 Reported Provider Instructions Activity Restrictions - No exercising or heavy lifting for 24 hours. - Do not drink alcohol the day of the procedure. - Do not drive a car or operate machinery until the day after the procedure. - Do not make any important decisions or sign important papers in 24 hours after the procedure. Following Day: - Return to full activity which may include returning to work/school. Diet Start your diet with liquids and light foods (jello, soup, juice, toast). Then eat your usual diet if not nauseated. Treatment For Common After Affects For mild abdominal pain, bloating, or excessive gas: - Rest - Eat lightly - Lie on right side Follow-Up Information Follow-up with Dr. Ovidio Donovan as scheduled Anesthesia Information What You Should Know You have had a procedure that required some medicine to reduce anxiety and discomfort. This treatment is called moderate sedation. After receiving the treatment, you may be sleepy, but you will be able to breathe on your own. The effects of the treatment may last for several hours. Follow these instructions along with Activity/Diet recommendations noted above: * Do NOT do anything where dizziness or clumsiness would be dangerous. * Rest quietly at home today, then you can be up and about tomorrow. * Have a responsible person stay with you the rest of today. * You may have had an I.V. today. If so, you may take the dressing off later today. Recommendations Call your doctor if: * Trouble breathing * Continuous vomiting for more than 24 hours * Temperature above 101 degrees * Severe abdominal pain or bloating * Pain not relieved by pain medicine ordered * There is increased drainage or redness from any incision * A large amount of rectal bleeding greater than 2-3 tablespoons. (If you had a polyp/s removed or have hemorrhoids, a small amount of blood - from the rectum is to be expected.) * You have any unanswered questions or concerns. IN THE EVENT OF A SERIOUS EMERGENCY, GO TO THE NEAREST EMERGENCY ROOM Your discharge instructions were prepared by provider Mitchell Segura. Patient Instructions Signature Page Gio Larry Patient (or Guardian) Signature/Date: I have read and understand the instructions given to me by my caregivers. Caregiver/RN/Doctor Signature/Date: The above-named patient and/or guardian has received patient instructions on this date. + Original Patient Signature Page (only) stays with chart. Please make copy for patient.
--- NOTE | 2016-12-09 11:19 | GI REPORT ---
Procedure Date: 12/09/2016 11:03 AM Procedure: Upper GI endoscopy Indications: Dysphagia Medicines: Monitored Anesthesia Care Complications: No immediate complications. Estimated Blood Loss: Estimated blood loss: none. Procedure: Pre-Anesthesia Assessment: - Prior to the procedure, a History and Physical was performed, and patient medications and allergies were reviewed. The patient's tolerance of previous anesthesia was also reviewed. The risks and benefits of the procedure and the sedation options and risks were discussed with the patient. All questions were answered, and informed consent was obtained. Prior Anticoagulants: The patient has taken aspirin, last dose was 4 days prior to procedure. ASA Grade Assessment: III - A patient with severe systemic disease. After reviewing the risks and benefits, the patient was deemed in satisfactory condition to undergo the procedure. After obtaining informed consent, the endoscope was passed under direct vision. Throughout the procedure, the patient's blood pressure, pulse, and oxygen saturations were monitored continuously. The scope was introduced through the mouth, and advanced to the second part of duodenum. The upper GI endoscopy was accomplished without difficulty. The patient tolerated the procedure well. Findings: Food was found in the lower third of the esophagus. Multiple plaques were found in the entire esophagus. Cells for cytology were obtained by brushing. A small amount of food (residue) was found in the gastric body. The examined duodenum was normal. Impression: - Food in the lower third of the esophagus. - Multiple plaques in the esophagus. Cells for cytology obtained. - A small amount of food (residue) in the stomach. - Normal examined duodenum. Recommendation: - Resume previous diet. - Continue present medications. - Return to primary care physician as previously scheduled. - Await results from esophageal brushings regarding possible Shazia esophagitis. Mitchell Segura, DO 12/09/2016 11:18:53 AM This report has been signed electronically. Note Initiated On: 12/09/2016 11:03 AM I attest to the content of the Intraoperative Record and orders documented therein, exceptions below
[2016-12-09 11:56] VITALS: BP 138/77; PULSE 100; O2SAT 96
--- NOTE | 2016-12-09 12:20 | Anesthesiology Progress Note ---
Anesthesia Post Op Note Date & Time Dec 09, 2016 at 12:18 Vital Signs Pain Intensity: 0 Vital Signs Past 12 Hours Date Time Temp Pulse Resp B/P Pulse Ox O2 Delivery O2 Flow Rate FiO2 12/09/16 11:56 100 20 138/77 96 Nasal Cannula 3 12/09/16 11:46 99 20 152/92 94 Nasal Cannula 3 12/09/16 11:31 94 20 150/92 91 Nasal Cannula 3 12/09/16 11:16 94 20 153/91 91 Nasal Cannula 3 12/09/16 10:31 36.7 94 22 150/86 95 Nasal Cannula 3 Notes Mental Status: alert / awake / arousable, participated in evaluation Pt Amnestic to Procedure: Yes Nausea / Vomiting: adequately controlled Pain: adequately controlled Airway Patency, RR, SpO2: stable & adequate BP & HR: stable & adequate Hydration State: stable & adequate Anesthetic Complications: no major complications apparent
== END | disposition home or self-care (01) ==
LOC: C.GI 09:35
PROVIDERS: ATTEND Internal Medicine
DX: R13.10 Dysphagia, unspecified (principal); E78.00 Pure hypercholesterolemia, unspecified; I10 Essential (primary) hypertension; J44.9 Chronic obstructive pulmonary disease, unspecified; F32.9 Major depressive disorder, single episode, unspecified; Z87.891 Personal history of nicotine dependence

== ENCOUNTER → 2017-01-04 | Outpatient (CLI) | payer OTHER, MEDICARE ==
[~2017-01-04] MED LIST changes: -LIDOCAINE HCL 2% 2 ML VIAL (20MG/ML) ONE; -PRED20TA2 PO; -PROPOFOL IV EMULSION 10 MG/ML 20 ML VIAL IV ONE; -SODIUM CHLORIDE 0.9% 500ML 500 ML IV ONE
== END | disposition home or self-care (01) ==
LOC: C.LAB1850 16:17
PROVIDERS: ATTEND Physician Assistant
DX: M31.6 Other giant cell arteritis (principal)

== ENCOUNTER → 2017-01-25 | Outpatient (CLI) | payer OTHER, MEDICARE ==
[2017-01-25 18:11] LABS: BLOOD UREA NITROGEN 12 mg/dl (7-18); BUN/CREATININE RATIO 10.2 (10-20); CALCIUM 8.9 mg/dl (8.5-10.1); CARBON DIOXIDE 31 mmol/L (21-32); CHLORIDE 101 mmol/L (98-107); GLUCOSE 162 mg/dl (70-99); POTASSIUM 3.6 mmol/L (3.5-5.1); SODIUM 142 mmol/L (136-145)
== END | disposition home or self-care (01) ==
LOC: C.LAB1850 16:31
PROVIDERS: ATTEND Physician Assistant
DX: M31.6 Other giant cell arteritis (principal); I50.9 Heart failure, unspecified

== ENCOUNTER → 2017-02-09 | Outpatient (CLI) | payer OTHER, MEDICARE ==
[~2017-02-09] VITALS: Ht 185.4 cm; Wt 141.4 kg
[2017-02-09 13:04] VITALS: BP 152/68; PULSE 69; Ht 185.4 cm; Wt 141.4 kg
== END | disposition home or self-care (01) ==
LOC: C.NEUR 12:14
PROVIDERS: ATTEND Internal Medicine Pulmonary Disease
DX: G47.34 Idiopathic sleep related nonobstructive alveolar hypoventilation (principal)

== ENCOUNTER → 2017-03-08 | Outpatient (CLI) | payer OTHER, MEDICARE ==
[2017-03-08 17:22] LABS: HEMATOCRIT 39.8 % (42-52); MEAN CELL VOLUME 104.2 fL (80-100); MEAN CORPUSCULAR HEMOGLOBIN 34.6 pg (25-34); MEAN CORPUSCULAR HGB CONC 33.2 g/dl (32-36); MEAN PLATELET VOLUME 10.2 fL (7.4-10.4); PLATELET COUNT 319 K/uL (130-400); RED BLOOD COUNT 3.82 M/uL (4.7-6.1); WHITE BLOOD COUNT 13.52 K/uL (4.8-10.8)
[2017-03-08 17:54] LABS: ALT/SGPT 27 U/L (12-78)
[2017-03-08 17:58] LABS: ALKALINE PHOSPHATASE 84 U/L (45-117); AST/SGOT 17 U/L (15-37)
== END | disposition home or self-care (01) ==
LOC: C.LAB1850 15:39
PROVIDERS: ATTEND Internal Medicine
DX: M31.6 Other giant cell arteritis (principal); Z79.899 Other long term (current) drug therapy

== ENCOUNTER → 2017-05-19 | Outpatient (CLI) | payer OTHER, MEDICARE ==
[2017-05-19 18:26] LABS: BLOOD UREA NITROGEN 12 mg/dl (7-18); CALCIUM 9.5 mg/dl (8.5-10.1); CARBON DIOXIDE 28 mmol/L (21-32); CHLORIDE 102 mmol/L (98-107); GLUCOSE 149 mg/dl (70-99); SODIUM 141 mmol/L (136-145)
[2017-05-19 19:23] LABS: BASO % 0.6 %; BASO ABS # 0.06 K/uL (0-0.2); COMPLETE YES; EOS % 1.7 %; HEMATOCRIT 39.6 % (42-52); IG% 0.8 %; LYMPH % 8.4 %; LYMPH ABS # 0.88 K/uL (1.2-3.4); MEAN CORPUSCULAR HEMOGLOBIN 31.3 pg (25-34); MEAN CORPUSCULAR HGB CONC 31.6 g/dl (32-36); MEAN PLATELET VOLUME 10.3 fL (7.4-10.4); MONO % 7.9 %; NEUT % 80.6 %; PLATELET COUNT 325 K/uL (130-400); WHITE BLOOD COUNT 10.43 K/uL (4.8-10.8)
== END | disposition home or self-care (01) ==
LOC: C.LAB1850 15:34
PROVIDERS: ATTEND Physician Assistant
DX: J44.9 Chronic obstructive pulmonary disease, unspecified (principal); M31.6 Other giant cell arteritis; I50.9 Heart failure, unspecified

== ENCOUNTER → 2017-07-19 | Outpatient (CLI) | payer OTHER, MEDICARE ==
[2017-07-19 17:01] LABS: BASO % 0.5 %; BASO ABS # 0.06 K/uL (0-0.2); COMPLETE YES; EOS % 1.8 %; HEMATOCRIT 40.4 % (42-52); IG% 0.4 %; LYMPH % 8.1 %; MEAN CELL VOLUME 98.5 fL (80-100); MEAN CORPUSCULAR HEMOGLOBIN 31.7 pg (25-34); MEAN CORPUSCULAR HGB CONC 32.2 g/dl (32-36); MEAN PLATELET VOLUME 9.9 fL (7.4-10.4); MONO % 4.5 %; NEUT % 84.7 %; PLATELET COUNT 311 K/uL (130-400); WHITE BLOOD COUNT 11.12 K/uL (4.8-10.8)
[2017-07-19 17:33] LABS: FERRITIN 298.1 ng/ml (8.0-388.0)
== END | disposition home or self-care (01) ==
LOC: C.LAB1850 16:02
PROVIDERS: ATTEND Physician Assistant
DX: D64.9 Anemia, unspecified (principal)

== ENCOUNTER 2019-05-31 15:07 | Inpatient (IN) ==
[2019-05-31] MEDS ORDERED: ONDANSETRON INJ 2 MG/ML 2 ML VIAL IV STA (16:08)
[2019-05-31] MEDS ORDERED: SODIUM CHLORIDE 0.9% 1000ML 1,000 ML IV SCH (16:15)
[2019-05-31 16:49] LABS: Hematocrit (blood only) 46.6 % (42-52); Hemoglobin 16.2 g/dL (14.0-18.0); Mean Corpuscular Hemoglobin 33.1 pg (25-34); Mean Corpuscular Hgb Conc 34.8 g/dL (32-36); Mean Corpuscular Volume 95.1 fL (80-100); Mean Platelet Volume 9.8 fL (7.4-10.4); Platelet Count 309 K/uL (130-400); RDW Coefficient of Variation 15.4 % (11.5-14.5); RDW Standard Deviation 52.8 fL (36.4-46.3); White Blood Count 26.99 K/uL (4.8-10.8)
--- NOTE | 2019-05-31 16:49 | XRay Report ---
XR chest 1V portable CLINICAL HISTORY: weakness dyspnea COMPARISON STUDY: 05/25/2019 FINDINGS: Stable cardiomegaly. Parenchymal infiltrate left base. Lungs otherwise appear clear. IMPRESSION: Cardiomegaly. Parenchymal infiltrate left base. The above report was generated using voice recognition software. It may contain grammatical, syntax or spelling errors. Electronically signed by: Cuco Ruiz M.D. 05/31/2019 4:47 PM
[2019-05-31 17:02] LABS: Appearance Urine Cloudy (Clear); Bacteria Urine Automated Negative (Negative); Blood Urine 3+ (Negative); Color Urine Orange; Epithelial Cell Urine Auto >30 /lpf (0-5); Glucose Urine UA Negative (Negative); Ketones Urine Negative (Negative); Leukocyte Esterase Urine 2+ (Negative); Nitrite Urine Negative (Negative); Protein Urine 1+ (Negative); Specific Gravity Urine 1.019 (1.000-1.030); Urobilinogen Urine Negative (Negative)
[2019-05-31 17:05] LABS: Bilirubin Urine Negative (Negative); Ictotest Urine Negative (Negative)
--- NOTE | 2019-05-31 17:07 | CT Scan Report ---
CT abd pelvis wo con CT DOSE: 1046.34 mGycm HISTORY: Pain. Nephrocalcinosis. recent litho and stents, ab pain TECHNIQUE: Multiaxial CT images of the abdomen and pelvis were performed without contrast. A dose lo wering technique was utilized adhering to the principles of ALARA. COMPARISON STUDY: 05/09/2019 FINDINGS: Mild chronic interstitial fibrotic change both lung bases. Liver spleen and pancreas are gr ossly unremarkable. Mild gallbladder distention. Interval placement of a right ureteral stent. Interval fragmentation of the proximal right ureteral c alculus. Fragments are noted throughout the right renal collecting system with pre-existing bilateral nephrocalcinosis unchanged. Progressive infiltrative change of the inferior right perirenal fat region versus mid right periurete ral fat. This potentially indicates right renal for mesial and/or calyceal rupture versus post trauma tic change to the right ureter. No evidence for well-defined abscess or collection at this time. Bladder is relatively collapsed. Rad ioactive seeds within the prosthetic bed are again noted. Scattered colonic diverticuli with no evide nce for diverticulitis. Nonobstructive bowel pattern throughout. IMPRESSION: 1. Interval placement of right ureteral stent with apparent lithotripsy and fragmentation of the calc ification of the right ureteral pelvic junction calcification previously described. 2. Progressive infiltrative change of the periureteral fat at the level of the midright ureter and/or possibly inferior right perinephric space. 3. Stable bilateral nephrocalcinosis. 4. This infiltrative change potentially relates to traumatic insult to the mid right ureter due to th e stent placement procedure, versus interval/calyceal rupture of the right kidney. 5. No evidence for drainable abscess or collection. 6. Improved hydronephrosis as compared to the prior exam The above report was generated using voice recognition software. It may contain grammatical, syntax or spelling errors. Electronically signed by: Cuco Ruiz M.D. 05/31/2019 5:05 PM
[2019-05-31 17:16] LABS: Albumin Level 3.4 gm/dl (3.4-5.0); BUN Creatinine Ratio 11.5 (10-20); Calcium 9.9 mg/dl (8.5-10.1); Creatinine Clr Calc Pharmacy 33.1 ml/min; Est GFR (African American) 27.9; Magnesium 2.1 mg/dl (1.8-2.4); Potassium 3.5 mmol/L (3.5-5.1)
[2019-05-31 17:19] LABS: Basophils # (auto) 0.02 K/uL (0-0.2); Basophils % (auto) 0.1 %; Eosinophils # (auto) 0.02 K/uL (0-0.5); Eosinophils % (auto) 0.1 %; Immature Granulocytes # (auto) 0.23 K/uL (0.00-0.02); Immature Granulocytes % (auto) 0.9 %; Lymphocytes # (auto) 0.87 K/uL (1.2-3.4); Lymphocytes % (auto) 3.2 %; Monocytes # (auto) 1.09 K/uL (0.11-0.59); Neutrophils # (auto) 24.76 K/uL (1.4-6.5); Neutrophils % (auto) 91.7 %
[2019-05-31 17:27] LABS: RBC Urine Automated >30 /hpf (0-4)
[2019-05-31 17:29] LABS: Albumin Globulin Ratio 0.8 (0.9-2); Bilirubin,Total 1.8 mg/dl (0.2-1); Globulin 4.4 gm/dl (2.5-4.0); Thyroid Stimulating Hormone 1.73 uIu/ml (0.300-4.500); Total Protein 7.8 gm/dl (6.4-8.2); Troponin I 0.447 ng/ml (0-0.045)
[2019-05-31] MEDS ORDERED: VANCOMYCIN CONSULT ACTIVE PRN ×2 (17:32→20:37)
[2019-05-31] MEDS ORDERED: PIPERACILLIN/TAZOBACTAM 4.5 GM/120 ML BAG IV ONE (17:32)
[2019-05-31] MEDS ORDERED: PIPERACILL/TAZOBAC CONSULT ACTIVE PRN ×2 (17:32→20:36)
[2019-05-31] MEDS ORDERED: VANCOMYCIN HCL 2,750 MG in SODIUM CHLORIDE 0.9% 500 ML IV ONE (17:32)
[2019-05-31] MEDS ORDERED: ASPIRIN CHEW 324 MG PO STA (17:33)
[2019-05-31] MEDS ORDERED: SODIUM CHLORIDE 0.9% 1000ML 1,000 ML IV ONE (17:36)
[2019-05-31] MEDS ORDERED: ONDANSETRON INJ 2 MG/ML 2 ML VIAL ONE (18:21)
--- NOTE | 2019-05-31 19:16 | History & Physical Report ---
Date of Service May 31, 2019 Assessment & Plan (1) Left lower lobe pneumonia: will cover with Vanco and Zosyn blood cultures drawn WBC markedly elevated at > 20, repeat in the morning NSS + 20 mEq K at 100cc/hr, bolus as needed but BP stable only mild hypoxia, no respiratory distress (2) KAYKAY (acute kidney injury): likely due to dehydration, sepsis, recent ureteral calculus and stent received 1L NSS in the ED, run fluids at 100cc/hr repeat BMP in the AM consult Dr. Donovan who follows the patient in clinic to see tomorrow electrolytes are stable (3) Severe sepsis: due to pneumonia as well as possible UTI with ureteral stone follow up blood cultures repeat lactic acid Vanco and Zosyn, renally dosed repeat CBC in the AM evidence of organ failure with KAYKAY (4) Elevated troponin: no chest pain, no ischemic EKG changes could be demand ischemia repeat troponin q6 x 2 more sets (5) Acute dehydration: as above, give fluids at 100cc/hr (6) Temporal arteritis: h/o such, will utilize stress dose steroids with Hydrocortisone was on Prednisone 60mg outpatient History of Present Illness Chief Complaint: I don't feel well Primary Care Provider: Ovidio Donovan MD 73 yo male with recent finding of right ureteral stone, s/p stent and lithotripsy who returned two days after the procedure due to weakness, chills, poor oral intake and general malaise. History was difficult to obtain in detail as the patient would not directly answer questions, difficult to keep on track. He admitted to right sided abdominal pain. He was making urine but very little and it was red since the procedure. The pain was intermittent, sharp in nature, nothing would make it better or worse. He had not moved his bowels in a few days. He was experiencing shortness of breath. No cough. He had been following with Dr. Donovan as outpatient for unexplained weight loss. He claims to have lost over 100lbs without trying. His appetite has been normal. He also suffers from temporal arteritis and he says that a recent ESR was > 90. In the ED he was tachycardic, afebrile, BP preserved. WBC markedly elevated at 26k and Cr up from his baseline to 2.5, K low normal at 3.7. CXR showed infiltrate in left base. CT abd/pelvis showed the right ureteral stent in place and fragmentation of prior stone. Some traumatic changes in the area were evident. Case was discussed with urology by ED staff, these are expected changes, no need for surgery at this time. I discussed the case with Dr. Tineo in the ED, plan for admission. the patient was given 1L NSS and Vancomycin and Zosyn. Blood and urine cultures obtained. Of note, lactic acid up at 2.9 Allergies Allergy/AdvReac Type Severity Reaction Status Date / Time No Known Allergies Allergy Unknown Verified 05/31/19 15:50 Home Medications Home Medications Medication Instructions Recorded Confirmed Type folic acid 1 mg tablet 1 mg PO BID #180 tab 04/10/19 05/31/19 History furosemide 40 mg tablet 40 mg PO BID #180 tab 04/10/19 05/31/19 History methotrexate sodium 2.5 mg tablet 7.5 mg PO .COMPLEX tab 04/10/19 05/31/19 History pantoprazole 40 mg tablet,delayed 40 mg PO BID #60 tab 04/10/19 05/31/19 History release potassium chloride ER 20 mEq 40 meq PO BID #360 tab 04/10/19 05/31/19 History tablet,extended release simvastatin 40 mg tablet 40 mg PO QPM #90 tab 04/10/19 05/31/19 History spironolactone 25 mg tablet 25 mg PO BID #180 tab 04/10/19 05/31/19 History tamsulosin 0.4 mg capsule 0.4 mg PO QAM #90 cap 04/10/19 05/31/19 History venlafaxine ER 150 mg 150 mg PO QAM #90 cap 04/10/19 05/31/19 History capsule,extended release 24 hr venlafaxine ER 75 mg 75 mg PO QAM #90 cap 04/10/19 05/31/19 History capsule,extended release 24 hr hyoscyamine 0.125 mg sublingual 0.125 mg SL Q4H PRN #30 tab 05/11/19 05/31/19 Rx tablet oxycodone-acetaminophen 10 mg-325 1 tab PO Q4H PRN #150 tab 05/12/19 05/31/19 Rx mg tablet aspirin [Aspirin Low Dose] 81 mg PO QAM 05/23/19 05/31/19 History clonazepam 0.5 mg PO BID PRN 05/23/19 05/31/19 History docusate sodium [Stool Softener] 100 mg PO DAILY PRN 05/23/19 05/31/19 History prednisone 2 mg PO QAM 05/23/19 05/31/19 History prednisone 20 mg tablet 60 mg PO DAILY #100 tab 05/23/19 05/31/19 Rx oxycodone-acetaminophen [Percocet] 1 tab PO Q8H PRN #10 tab 05/29/19 05/31/19 Rx aripiprazole 5 mg PO DAILY 05/31/19 05/31/19 History bupropion HCl [Wellbutrin SR] 150 mg PO DAILY 05/31/19 05/31/19 History prednisone 5 mg PO DAILY 05/31/19 05/31/19 History Past Med/Surg History Medical History Temporal arteritis (Chronic) Anxiety Atrial fibrillation Chronic back pain Chronic obstructive pulmonary disease stopped inhalers Congestive heart failure Degenerative disc disease Depression GERD (gastroesophageal reflux disease) Hyperlipidemia Hypertension Kidney stones On home oxygen therapy 3lpm prn Osteoarthritis Peripheral neuropathy bilateral hands & feet Prostate cancer with radiation Sleep apnea non-compliant with cpap Weight loss, unintentional Surgical History H/O toe surgery History of arthroscopic surgery of shoulder bilateral History of colonoscopy History of nasal septoplasty History of tonsillectomy Hx of shoulder surgery open left shoulder Family History Other Hypertension Social History Preferred Language: Kosovan Communication Ability: Effective Hub Lead Required: No Beliefs That Will Affect Care: None Current Living Situation: Alone Other Information That Helps Us Care for You: No Feels Safe at Home: Yes Safety Concerns: Feels Safe At This Time Smoking Status: Former smoker Tobacco Type: cigarettes ; Do You Dip or Chew Tobacco: No ; Second Hand Exposure: No ; Hx Alcohol Use: No (former heavy drinker) Hx Substance Use: Yes (medicinal medical marijuana - at HS) substance use type: former substance user Review of Systems Review of Systems: All systems reviewed & are unremarkable except as noted in HPI & below Physical Exam Constitutional: + ill appearing, cooperative and + overweight; no acute distress Eyes: PERRL, conjunctivae normal, anicteric sclerae ENMT: external ear and nose normal, oropharynx normal (dry mucous membranes) Neck: trachea midline, no thyromegaly Respiratory: normal respiratory effort, lungs clear to auscultation Auscultation: + diminished lung sounds (bases) Cardiovascular: RRR, no murmur, no edema Gastrointestinal (Abdomen): normal bowel sounds, soft, nontender, no hepatosplenomegaly Musculoskeletal: no cyanosis or clubbing, extremities motor strength 5/5 Skin: no rashes, warm and dry Neurologic: patellar DTR's 2+ bilat, sensation intact and PERRL, EOMI, accommodation nl, no face palsy, no dysarthria Psychiatric: A+Ox3, euthymic affect Lymphatic: no cervical or axillary lymphadenopathy Results & Data Vital Signs (Past 12 Hours) Vital Signs Temp Pulse Pulse Resp BP BP Pulse Ox 05/31/19 18:14 95 H 20 139/94 92 05/31/19 16:08 97 05/31/19 15:07 36.9 C 109 H 19 102/78 94 Laboratory Results Laboratory Results - last 24 hr 05/31/19 05/31/19 05/31/19 16:40 16:40 16:40 WBC 26.99 H RBC 4.90 Hgb 16.2 Hct 46.6 MCV 95.1 MCH 33.1 MCHC 34.8 RDW Std Deviation 52.8 H RDW Coeff of Melba 15.4 H Plt Count 309 MPV 9.8 Immature Gran % (Auto) 0.9 Neut % (Auto) 91.7 Lymph % (Auto) 3.2 Millard % (Auto) 4.0 Eos % (Auto) 0.1 Baso % (Auto) 0.1 Immature Gran # (Auto) 0.23 H Neut # (Auto) 24.76 H Lymph # (Auto) 0.87 L Millard # (Auto) 1.09 H Eos # (Auto) 0.02 Baso # (Auto) 0.02 Sodium 136 Potassium 3.5 Chloride 97 L Carbon Dioxide 27 Anion Gap 12.0 H BUN 29 H Creatinine 2.53 H Est Cr Clr Drug Dosing 33.1 Est GFR ( Amer) 27.9 Est GFR (Non-Af Amer) 24.0 BUN/Creatinine Ratio 11.5 Glucose 154 H Lactate Calcium 9.9 Magnesium 2.1 Total Bilirubin 1.8 H AST 17 ALT 57 Alkaline Phosphatase 104 Troponin I 0.447 H* Total Protein 7.8 Albumin 3.4 Globulin 4.4 H Albumin/Globulin Ratio 0.8 L TSH 1.730 Urine Color Simpson Urine Appearance Cloudy A Urine pH 5.0 Ur Specific [place] 1.019 Urine Protein 1+ H Urine Glucose (UA) Negative Urine Ketones Negative Urine Blood 3+ H Urine Nitrite Negative Urine Bilirubin Negative Urine Urobilinogen Negative Ur Leukocyte Esterase 2+ H Urine WBC (Auto) 10-30 H Urine RBC (Auto) >30 H U Hyaline Cast (Auto) 5-10 H U Epithel Cells (Auto) >30 H Urine Bacteria (Auto) Negative Urine Yeast Not Reportable 05/31/19 05/31/19 05/31/19 18:13 20:59 20:59 WBC RBC Hgb Hct MCV MCH MCHC RDW Std Deviation RDW Coeff of Melba Plt Count MPV Immature Gran % (Auto) Neut % (Auto) Lymph % (Auto) Millard % (Auto) Eos % (Auto) Baso % (Auto) Immature Gran # (Auto) Neut # (Auto) Lymph # (Auto) Millard # (Auto) Eos # (Auto) Baso # (Auto) Sodium Potassium Chloride Carbon Dioxide Anion Gap BUN Creatinine Est Cr Clr Drug Dosing Est GFR ( Amer) Est GFR (Non-Af Amer) BUN/Creatinine Ratio Glucose Lactate 2.9 H* 2.7 H* Calcium Magnesium Total Bilirubin AST ALT Alkaline Phosphatase Troponin I 0.287 H* Total Protein Albumin Globulin Albumin/Globulin Ratio TSH Urine Color Urine Appearance Urine pH Ur Specific [place] Urine Protein Urine Glucose (UA) Urine Ketones Urine Blood Urine Nitrite Urine Bilirubin Urine Urobilinogen Ur Leukocyte Esterase Urine WBC (Auto) Urine RBC (Auto) U Hyaline Cast (Auto) U Epithel Cells (Auto) Urine Bacteria (Auto) Urine Yeast 06/01/19 06/01/19 02:54 02:54 WBC 17.93 H RBC 3.92 L Hgb 12.7 L D Hct 37.2 L MCV 94.9 MCH 32.4 MCHC 34.1 RDW Std Deviation 52.6 H RDW Coeff of Melba 15.4 H Plt Count 225 MPV 9.6 Immature Gran % (Auto) 0.6 Neut % (Auto) 90.1 Lymph % (Auto) 3.5 Millard % (Auto) 5.7 Eos % (Auto) 0.0 Baso % (Auto) 0.1 Immature Gran # (Auto) 0.11 H Neut # (Auto) 16.16 H Lymph # (Auto) 0.63 L Millard # (Auto) 1.02 H Eos # (Auto) 0.00 Baso # (Auto) 0.01 Sodium 137 Potassium 3.5 Chloride 102 Carbon Dioxide 28 Anion Gap 7.0 BUN 29 H Creatinine 2.10 H D Est Cr Clr Drug Dosing 39.6 Est GFR ( Amer) 34.9 Est GFR (Non-Af Amer) 30.1 BUN/Creatinine Ratio 13.7 Glucose 145 H Lactate Calcium 8.3 L D Magnesium Total Bilirubin AST ALT Alkaline Phosphatase Troponin I 0.159 H* Total Protein Albumin Globulin Albumin/Globulin Ratio TSH Urine Color Urine Appearance Urine pH Ur Specific [place] Urine Protein Urine Glucose (UA) Urine Ketones Urine Blood Urine Nitrite Urine Bilirubin Urine Urobilinogen Ur Leukocyte Esterase Urine WBC (Auto) Urine RBC (Auto) U Hyaline Cast (Auto) U Epithel Cells (Auto) Urine Bacteria (Auto) Urine Yeast Diagnostic Findings CT abd pelvis wo con IMPRESSION: 1. Interval placement of right ureteral stent with apparent lithotripsy and fragmentation of the calcification of the right ureteral pelvic junction calcification previously described. 2. Progressive infiltrative change of the periureteral fat at the level of the midright ureter and/or possibly inferior right perinephric space. 3. Stable bilateral nephrocalcinosis. 4. This infiltrative change potentially relates to traumatic insult to the mid right ureter due to the stent placement procedure, versus interval/calyceal rupture of the right kidney. 5. No evidence for drainable abscess or collection. 6. Improved hydronephrosis as compared to the prior exam XR chest 1V portable FINDINGS: Stable cardiomegaly. Parenchymal infiltrate left base. Lungs otherwise appear clear. IMPRESSION: Cardiomegaly. Parenchymal infiltrate left base. Code Status & VTE Plan Code Status full code VTE Prophylaxis Plan VTE Prophylaxis will be ordered: Yes PG Care Time/CCT Total # of Minutes Spent Total Time Spent with Patient: Total time spent is greater than 50% in coordination of care (as documented) at patient's floor/unit and/or counseling patient: (1) Left lower lobe pneumonia Pneumonia type: due to unspecified organism Qualified Code(s): J18.1 - Lobar pneumonia, unspecified organism
--- NOTE | 2019-05-31 19:36 | Emergency Department Note ---
Entered by Brenda Mark acting as a scribe for Je Tineo MD History of Present Illness General Chief complaint: Illness Stated complaint: WEAKNESS, DIZZINESS, URINARY SX Time Seen by Provider: 05/31/19 15:46 Source: patient History of Present Illness Provider complaint: Illness Onset (ago): day(s) 1 Location: abdomen Radiation: non-radiation Maximum Pain Intensity: 5 Relieved By: + none Associated symptoms: + confusion, + loss of appetite and + other (Melena) The patient is a 73 year old male w/ PMHx of COPD, depression, Afib, CHF, prostate cancer, temporal arteritis who presents to the ED w/ CC of illness beginning yesterday. The patient states the symptoms do not radiate anywhere on his body and are not relieved by anything specific. The patient reports experiencing confusion, loss of appetite, and melena. The patient mentioned that he had a procedure done 2 days ago to remove a large amount of kidney stones and has been using the restroom "every 30 seconds." Additionally, the patient notes that he wears oxygen at home and has lost about 60-70 pounds in the last 8 month s. Home Medications Home Medications Medication Instructions Recorded Confirmed Type folic acid 1 mg tablet 1 mg PO BID #180 tab 04/10/19 05/31/19 History furosemide 40 mg tablet 40 mg PO BID #180 tab 04/10/19 05/31/19 History methotrexate sodium 2.5 mg tablet 7.5 mg PO .COMPLEX tab 04/10/19 05/31/19 History pantoprazole 40 mg tablet,delayed 40 mg PO BID #60 tab 04/10/19 05/31/19 History release potassium chloride ER 20 mEq 40 meq PO BID #360 tab 04/10/19 05/31/19 History tablet,extended release simvastatin 40 mg tablet 40 mg PO QPM #90 tab 04/10/19 05/31/19 History spironolactone 25 mg tablet 25 mg PO BID #180 tab 04/10/19 05/31/19 History tamsulosin 0.4 mg capsule 0.4 mg PO QAM #90 cap 04/10/19 05/31/19 History venlafaxine ER 150 mg 150 mg PO QAM #90 cap 04/10/19 05/31/19 History capsule,extended release 24 hr venlafaxine ER 75 mg 75 mg PO QAM #90 cap 04/10/19 05/31/19 History capsule,extended release 24 hr hyoscyamine 0.125 mg sublingual 0.125 mg SL Q4H PRN #30 tab 05/11/19 05/31/19 Rx tablet oxycodone-acetaminophen 10 mg-325 1 tab PO Q4H PRN #150 tab 05/12/19 05/31/19 Rx mg tablet aspirin [Aspirin Low Dose] 81 mg PO QAM 05/23/19 05/31/19 History bupropion HCl 100 mg PO QAM 05/23/19 05/31/19 History clonazepam 0.5 mg PO BID PRN 05/23/19 05/31/19 History docusate sodium [Stool Softener] 100 mg PO DAILY PRN 05/23/19 05/31/19 History prednisone 2 mg PO QAM 05/23/19 05/31/19 History prednisone 20 mg tablet 60 mg PO DAILY #100 tab 05/23/19 05/31/19 Rx oxycodone-acetaminophen [Percocet] 1 tab PO Q8H PRN #10 tab 05/29/19 05/31/19 Rx aripiprazole 5 mg PO DAILY 05/31/19 05/31/19 History prednisone 5 mg PO DAILY 05/31/19 05/31/19 History Allergies Allergy/AdvReac Type Severity Reaction Status Date / Time No Known Allergies Allergy Unknown Verified 05/31/19 15:50 Past Med/Surg History Medical History Temporal arteritis (Chronic) Anxiety Atrial fibrillation Chronic back pain Chronic obstructive pulmonary disease stopped inhalers Congestive heart failure Degenerative disc disease Depression GERD (gastroesophageal reflux disease) Hyperlipidemia Hypertension Kidney stones On home oxygen therapy 3lpm prn Osteoarthritis Peripheral neuropathy bilateral hands & feet Prostate cancer with radiation Sleep apnea non-compliant with cpap Weight loss, unintentional Surgical History H/O toe surgery History of arthroscopic surgery of shoulder bilateral History of colonoscopy History of nasal septoplasty History of tonsillectomy Hx of shoulder surgery open left shoulder Social History Preferred Language: Khmer Whiting [employer] Worker Required: No Beliefs That Will Affect Care: None Current Living Situation: Alone Feels Safe at Home: Yes Smoking Status: Former smoker Tobacco Type: cigarettes ; Second Hand Exposure: No ; Hx Alcohol Use: Yes (hx of alcohol) Alcohol type: beer Hx Substance Use: Yes (medicinal medical marijuana - at HS) Review of Systems See HPI for pertinent positives & negatives. and A total of 10 systems reviewed and were otherwise negative Physical Exam Vital Signs Vital Signs - 24 hr 05/31/19 15:07 05/31/19 16:08 05/31/19 18:14 Temperature 36.9 C Temperature Source Oral Sepsis Recent Fever Within 48 Hours No Sepsis New/Unexplained Change in Mental Status No Sepsis Action Taken by Nursing No Action Required Pulse Rate 109 H Pulse Rate [Left Finger] 95 H Respiratory Rate 19 20 Respiratory Effort / Characteristics Non-Labored Non-Labored Respiratory Depth Normal Normal Respiratory Pattern Regular Regular Blood Pressure 102/78 Blood Pressure [Left Arm] 139/94 Blood Pressure Mean 86 Blood Pressure Mean [Left Arm] 109 Pulse Oximetry 94 97 92 Oxygen Delivery Method Nasal Cannula Nasal Cannula Room Air Oxygen Flow Rate 3 3 05/31/19 19:00 05/31/19 19:25 Temperature Temperature Source Sepsis Recent Fever Within 48 Hours Sepsis New/Unexplained Change in Mental Status Sepsis Action Taken by Nursing Pulse Rate 97 H Pulse Rate [Left Finger] 91 H Respiratory Rate 18 18 Respiratory Effort / Characteristics Respiratory Depth Respiratory Pattern Blood Pressure 115/76 Blood Pressure [Left Arm] 119/62 Blood Pressure Mean Blood Pressure Mean [Left Arm] 81 Pulse Oximetry 97 98 Oxygen Delivery Method Room Air Oxygen Flow Rate GENERAL: Hard of hearing. Nasal canula. Wearing glasses. EYE EXAM: Normal conjunctiva. PERRL, no anisocoria and EOM's grossly intact w/o pain. OROPHARYNX: Moist mucous membranes. Grossly normal dentition. NECK: Supple, no nuchal rigidity, no adenopathy, non-tender. No signs of meningismus. LUNGS: Clear to auscultation. Normal chest wall mechanics. HEART: NSR, no MRG. ABDOMEN: Abdomen soft, normo-active bowel sounds, no masses, no rebound or guarding. Mild upper abdominal discomfort. BACK: No CVA TTP. SKIN: No rashes and no bruising. UPPER EXTREMITIES: Upper extremities are grossly normal. LOWER EXTREMITIES: No pitting edema. No calf pain. NEURO EXAM: A&O x3, cranial nerves II-XII grossly intact, normal speech, moves all 4 extremities on command w/o issue. Course 1601: Past medical records reviewed. The patient was evaluated in room C06. A complete history and physical exam was performed. 1649: I reevaluated the patient and he said he wants to . 1745: I spoke with Dr. Su- Dannielle about the patient's case and he will accept the patient for further evaluation. 1803: I spoke with Dr. Manzanares- Urology about the patient's case and he said the findings are typical post-procedure. He said as long as the stent is in place and draining there is no need for intervention. 181: I updated Dr. Do- Dannielle about my conversation with Dr. Manzanares- Urology. Administered Medications Vancomycin HCl 2,750 mg/ (Sodium Chloride) 555 mls @ 200 mls/hr IV NOW ONE Stop: 05/31/19 20:18 Last Admin: 05/31/19 19:12 Dose: 200 mls/hr Documented by: [id number] Discontinued Medications Aspirin (Aspirin) 324 mg PO NOW STA Stop: 05/31/19 17:34 Last Admin: 05/31/19 18:24 Dose: 324 mg Documented by: [id number] Sodium Chloride (Nss 1000ml) 1,000 mls @ 999 mls/hr IV .Q1H1M BETH Stop: 05/31/19 17:15 Last Infusion: 05/31/19 18:04 Dose: 0 mls/hr Documented by: [id number] Admin: 05/31/19 16:45 Dose: 999 mls/hr Documented by: [id number] Piperacillin Sod/Tazobactam Sod (Zosyn) 4.5 gm in 120 mls @ 240 mls/hr IV NOW ONE Stop: 05/31/19 18:01 Last Infusion: 05/31/19 19:00 Dose: 0 mls/hr Documented by: [id number] Admin: 05/31/19 18:24 Dose: 240 mls/hr Documented by: [id number] Sodium Chloride (Nss 1000ml) 1,000 mls @ 999 mls/hr IV .Q1H1M ONE Stop: 05/31/19 18:36 Last Admin: 05/31/19 18:26 Dose: 999 mls/hr Documented by: [id number] Ondansetron HCl (Zofran) 4 mg IV NOW STA Stop: 05/31/19 16:09 Last Admin: 05/31/19 18:24 Dose: 4 mg Documented by: [id number] Ondansetron HCl (Zofran) Confirm Administered Dose 4 mg .ROUTE .STK-MED ONE Stop: 05/31/19 18:22 Last Admin: 05/31/19 18:24 Dose: Not Given Documented by: [id number] Medical Decision Making Differential Diagnosis The patient is a 73 year old male w/ PMHx of COPD, depression, Afib, CHF, prostate cancer, temporal arteritis who presents to the ED w/ CC of illness beginning yesterday. Differential diagnosis: Etiologies such as biliary colic, cholecystitis, hepatitis, pancreatitis, cardiac disease, pancreatitis, gastritis, peptic ulcer disease, appendicitis, cystitis, diverticulitis, mesenteric ischemia, inflammatory bowel disease, il eus, bowel obstruction, testicular torsion, aortic pathology, shingles, as well as others were considered. Medical Records Attestation: I reviewed the patient's medical records. Home Medications Current Medication List: was personally reviewed by me Laboratory Data Attestation: I reviewed the patient's lab results. Result diagrams: 05/31/19 16:40 05/31/19 16:40 Lab Results 05/31/19 05/31/19 05/31/19 Range/Units 16:40 16:40 16:40 WBC 26.99 H (4.8-10.8) K/uL RBC 4.90 (4.7-6.1) M/uL Hgb 16.2 (14.0-18.0) g/dL Hct 46.6 (42-52) % MCV 95.1 (80-100) fL MCH 33.1 (25-34) pg MCHC 34.8 (32-36) g/dL RDW Std Deviation 52.8 H (36.4-46.3) fL RDW Coeff of Melba 15.4 H (11.5-14.5) % Plt Count 309 (130-400) K/uL MPV 9.8 (7.4-10.4) fL Immature Gran % (Auto) 0.9 % Neut % (Auto) 91.7 % Lymph % (Auto) 3.2 % [place] % (Auto) 4.0 % Eos % (Auto) 0.1 % Baso % (Auto) 0.1 % Immature Gran # (Auto) 0.23 H (0.00-0.02) K/uL Neut # (Auto) 24.76 H (1.4-6.5) K/uL Lymph # (Auto) 0.87 L (1.2-3.4) K/uL [place] # (Auto) 1.09 H (0.11-0.59) K/uL Eos # (Auto) 0.02 (0-0.5) K/uL Baso # (Auto) 0.02 (0-0.2) K/uL Sodium 136 (136-145) mmol/L Potassium 3.5 (3.5-5.1) mmol/L Chloride 97 L (98-107) mmol/L Carbon Dioxide 27 (21-32) mmol/L Anion Gap 12.0 H (3-11) BUN 29 H (7-18) mg/dl Creatinine 2.53 H (0.6-1.4) mg/dl Est Cr Clr Drug Dosing 33.1 ml/min Est GFR ( Amer) 27.9 Est GFR (Non-Af Amer) 24.0 BUN/Creatinine Ratio 11.5 (10-20) Glucose 154 H (70-99) mg/dl Lactate (0.4-2.0) mmol/L Calcium 9.9 (8.5-10.1) mg/dl Magnesium 2.1 (1.8-2.4) mg/dl Total Bilirubin 1.8 H (0.2-1) mg/dl AST 17 (15-37) U/L ALT 57 (12-78) U/L Alkaline Phosphatase 104 (45-117) U/L Troponin I 0.447 H* (0-0.045) ng/ml Total Protein 7.8 (6.4-8.2) gm/dl Albumin 3.4 (3.4-5.0) gm/dl Globulin 4.4 H (2.5-4.0) gm/dl Albumin/Globulin Ratio 0.8 L (0.9-2) TSH 1.730 (0.300-4.500) uIu/ml Urine Color [place] Urine Appearance Cloudy A (Clear) Urine pH 5.0 (4.5-7.5) Ur Specific [place] 1.019 (1.000-1.030) Urine Protein 1+ H (Negative) Urine Glucose (UA) Negative (Negative) Urine Ketones Negative (Negative) Urine Blood 3+ H (Negative) Urine Nitrite Negative (Negative) Urine Bilirubin Negative (Negative) Urine Urobilinogen Negative (Negative) Ur Leukocyte Esterase 2+ H (Negative) Urine WBC (Auto) 10-30 H (0-5) /hpf Urine RBC (Auto) >30 H (0-4) /hpf U Hyaline Cast (Auto) 5-10 H (0-5) /lpf U Epithel Cells (Auto) >30 H (0-5) /lpf Urine Bacteria (Auto) Negative (Negative) Urine Yeast Not Reportable 05/31/19 Range/Units 18:13 WBC (4.8-10.8) K/uL RBC (4.7-6.1) M/uL Hgb (14.0-18.0) g/dL Hct (42-52) % MCV (80-100) fL MCH (25-34) pg MCHC (32-36) g/dL RDW Std Deviation (36.4-46.3) fL RDW Coeff of Melba (11.5-14.5) % Plt Count (130-400) K/uL MPV (7.4-10.4) fL Immature Gran % (Auto) % Neut % (Auto) % Lymph % (Auto) % [place] % (Auto) % Eos % (Auto) % Baso % (Auto) % Immature Gran # (Auto) (0.00-0.02) K/uL Neut # (Auto) (1.4-6.5) K/uL Lymph # (Auto) (1.2-3.4) K/uL [place] # (Auto) (0.11-0.59) K/uL Eos # (Auto) (0-0.5) K/uL Baso # (Auto) (0-0.2) K/uL Sodium (136-145) mmol/L Potassium (3.5-5.1) mmol/L Chloride (98-107) mmol/L Carbon Dioxide (21-32) mmol/L Anion Gap (3-11) BUN (7-18) mg/dl Creatinine (0.6-1.4) mg/dl Est Cr Clr Drug Dosing ml/min Est GFR ( Amer) Est GFR (Non-Af Amer) BUN/Creatinine Ratio (10-20) Glucose (70-99) mg/dl Lactate 2.9 H* (0.4-2.0) mmol/L Calcium (8.5-10.1) mg/dl Magnesium (1.8-2.4) mg/dl Total Bilirubin (0.2-1) mg/dl AST (15-37) U/L ALT (12-78) U/L Alkaline Phosphatase (45-117) U/L Troponin I (0-0.045) ng/ml Total Protein (6.4-8.2) gm/dl Albumin (3.4-5.0) gm/dl Globulin (2.5-4.0) gm/dl Albumin/Globulin Ratio (0.9-2) TSH (0.300-4.500) uIu/ml Urine Color Urine Appearance (Clear) Urine pH (4.5-7.5) Ur Specific [place] (1.000-1.030) Urine Protein (Negative) Urine Glucose (UA) (Negative) Urine Ketones (Negative) Urine Blood (Negative) Urine Nitrite (Negative) Urine Bilirubin (Negative) Urine Urobilinogen (Negative) Ur Leukocyte Esterase (Negative) Urine WBC (Auto) (0-5) /hpf Urine RBC (Auto) (0-4) /hpf U Hyaline Cast (Auto) (0-5) /lpf U Epithel Cells (Auto) (0-5) /lpf Urine Bacteria (Auto) (Negative) Urine Yeast Imaging Data Radiologist's Impression: Radiology results as stated below per my review and the radiologist's interpretation: CT abd pelvis wo con CT DOSE: 1046.34 mGycm HISTORY: Pain. Nephrocalcinosis. recent litho and stents, ab pain TECHNIQUE: Multiaxial CT images of the abdomen and pelvis were performed without contrast. A dose lowering technique was utilized adhering to the principles of ALARA. COMPARISON STUDY: 05/09/2019 FINDINGS: Mild chronic interstitial fibrotic change both lung bases. Liver spleen and pancreas are grossly unremarkable. Mild gallbladder distention. Interval placement of a right ureteral stent. Interval fragmentation of the proximal right ureteral calculus. Fragments are noted throughout the right renal collecting system with pre-existing bilateral nephrocalcinosis unchanged. Progressive infiltrative change of the inferior right perirenal fat region vers us mid right periureteral fat. This potentially indicates right renal for mesial and/or calyceal rupture versus post traumatic change to the right ureter. No evidence for well-defined abscess or collection at this time. Bladder is relatively collapsed. 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 Scattered colonic diverticuli with no evidence for diverticulitis. Nonobstructive bowel pattern throughout. IMPRESSION: 1. Interval placement of right ureteral stent with apparent lithotripsy and fragmentation of the calcification of the right ureteral pelvic junction calcification previously described. 2. Progressive infiltrative change of the periureteral fat at the level of the midright ureter and/or possibly inferior right perinephric space. 3. Stable bilateral nephrocalcinosis. 4. This infiltrative change potentially relates to traumatic insult to the mid right ureter due to the stent placement procedure, versus interval/calyceal rupture of the right kidney. 5. No evidence for drainable abscess or collection. 6. Improved hydronephrosis as compared to the prior exam The above report was generated using voice recognition software. It may contain grammatical, syntax or spelling errors. Electronically signed by: Cuco Ruiz M.D. 05/31/2019 5:05 PM XR chest 1V portable CLINICAL HISTORY: weakness dyspnea COMPARISON STUDY: 05/25/2019 FINDINGS: Stable cardiomegaly. Parenchymal infiltrate left base. Lungs otherwise appear clear. IMPRESSION: Cardiomegaly. Parenchymal infiltrate left base. The above report was generated using voice recognition software. It may contain grammatical, syntax or spelling errors. Electronically signed by: Cuco Ruiz M.D. 05/31/2019 4:47 PM ECG Data Attestation: I personally reviewed and interpreted this ECG as follows: Indication: other (Illness) Rate (beats per minute): 101 Rhythm: sinus tachycardia Findings: + other (Normal axis, TWI anteriorly ), + 1st degree AV block, + PVC and + Q waves Comparison ECG Date: from (05/25/2019) Change: the following changes noted (Q wave in V2 and V3 and TWI in V3 are new) Blood Pressure Blood Pressure Findings: Normal blood pressure Blood Pressure Disposition: further management by hospitalist LUIS ANTONIO Narrative Patient was seen and evaluated the bedside. The patient did present with fatigue weakness, hematuria and abdominal discomfort. The patient did have a recent lithotripsy and stent placement in the right ureter on Wednesday with Dr. Chen. Patient does not have any CVA tenderness palpation. Patient did have blood work completed along with a CT Noncon. The patient's blood work showed co ncern for elevated white blood cell count. The patient does have some KAYKAY. Likely secondary to dehydration. Patient also has reported decreased p.o. intake. Blood cultures were ordered along with a lactate and the patient was covered with broad-spectrum antibiotics given the recent instrumentation as well as the patient's evidence of a left lower lobe pneumonia on chest x-ray. Patient was ordered additional IV fluids. I did speak with the on-call urologist given the CT findings and they stated that this would not require any acute intervention as long as the stent is in the appropriate place and it is actively draining. Patient did have positive troponin. The patient does have some nonspecific changes on EKG but the patient denies any chest pains or shortness of breath. I believe this is likely related to his KAYKAY and associated infection driven which is causing some demand ischemia. Patient was ordered a full dose aspirin. No heparin at this time. I did convey this to the ospitalist. Was agreeable to admission at this time. Patient was subsequent admitted to the medicine service. Impression & Plan KAYKAY (acute kidney injury), Kidney stone, Acute dehydration, Elevated troponin, Left lower lobe pneumonia Critical Care Time Critical Care Time: Yes Total Critical Care Time: 45 I have personally spent greater than 45 minutes of critical care time in direct management of this patient. This includes bedside care, interpretation of diagnostic studies, and testing, discussion with consultants, patient, and family members, and other require inpatient management activities. This 45 minutes is in excess of all separately billable procedures. Discharge Plan Visit Data Chief Complaint: Illness Stated Complaint: WEAKNESS, DIZZINESS, URINARY SX ED Provider: Je Tineo Discharge Problem: KAYKAY (acute kidney injury), Kidney stone, Acute dehydration, Elevated troponin, Left lower lobe pneumonia Patient Disposition: Admitted As Inpatient Discharge Instructions Interventions: ED Discharge Assessment Last Done: 05/31/19 19:25 Forms Stand Alone Forms: My [facility] [employer] Prescriptions Prescriptions: No Action hyoscyamine sulfate 0.125 mg tablet, sublingual 0.125 mg SL Q4H PRN (Reason: dyspepsia) Qty: 30 RF: 1 oxycodone-acetaminophen 10-325 mg tablet 1 tab PO Q4H PRN (Reason: pain) Qty: 150 RF: 0 prednisone 20 mg tablet 60 mg PO DAILY Qty: 100 RF: 0 folic acid 1 mg tablet 1 mg PO BID Qty: 180 RF: 0 furosemide 40 mg tablet 40 mg PO BID Qty: 180 RF: 0 potassium chloride 20 mEq tablet extended release 40 meq PO BID Qty: 360 RF: 0 methotrexate sodium 2.5 mg tablet 7.5 mg PO .COMPLEX RF: 0 pantoprazole 40 mg tablet,delayed release (DR/EC) 40 mg PO BID Qty: 60 RF: 0 simvastatin 40 mg tablet 40 mg PO QPM Qty: 90 RF: 0 spironolactone 25 mg tablet 25 mg PO BID Qty: 180 RF: 0 tamsulosin 0.4 mg capsule 0.4 mg PO QAM Qty: 90 RF: 0 venlafaxine 75 mg capsule,extended release 24hr 75 mg PO QAM Qty: 90 RF: 0 venlafaxine 150 mg capsule,extended release 24hr 150 mg PO QAM Qty: 90 RF: 0 clonazepam 0.5 mg Tablet 0.5 mg PO BID PRN (Reason: Anxiety) RF: 0 aspirin [Aspirin Low Dose] 81 mg Tablet,Delayed Release (Dr/Ec) 81 mg PO QAM RF: 0 bupropion HCl 100 mg Tablet 100 mg PO QAM RF: 0 prednisone 1 mg Tablet 2 mg PO QAM RF: 0 docusate sodium [Stool Softener] 100 mg Capsule 100 mg PO DAILY PRN (Reason: Constipation) RF: 0 oxycodone-acetaminophen [Percocet] 7.5-325 mg tablet 1 tab PO Q8H PRN (Reason: pain) Qty: 10 RF: 0 prednisone 5 mg tablet 5 mg PO DAILY RF: 0 aripiprazole 5 mg tablet 5 mg PO DAILY RF: 0 Referrals Referrals: Ovidio Donovan MD [Primary Care Provider] - Discharge Problem: Left lower lobe pneumonia Qualifiers: Pneumonia type: due to unspecified organism Qualified Code(s): J18.1 - Lobar pneumonia, unspecified organism The scribe's documentation has been prepared under my direction and personally reviewed by me in its entirety. I confirm that the note above accurately refl ects all work, treatment, procedures, and medical decision making performed by me.
[2019-05-31] MEDS ORDERED: ACETAMINOPHEN 325 MG TAB PO PRN (19:42)
[2019-05-31] MEDS ORDERED: clonazePAM 0.5 MG TAB PO PRN (19:42)
[2019-05-31] MEDS ORDERED: INFLUENZA VACCINE HIGH DOSE 65+ 0.5 ML SYR IM ONE (21:00)
[2019-05-31] MEDS ORDERED: PNEUMOCOCCAL ADMINISTRATION CHARGE ONE (21:00)
[2019-05-31] MEDS ORDERED: INFLUENZA ADMINISTRATION CHARGE ONE (21:00)
[2019-05-31] MEDS ORDERED: PNEUMOCOCCAL POLYSACCHARIDES 25 MCG/0.5 ML VIAL/SYR IM ONE (21:00)
[2019-05-31] MEDS: HEPARIN SOD 5,000 UNIT/0.5 ML VIAL SQ SCH (21:05)
[2019-05-31] MEDS: SIMVASTATIN 40 MG TAB PO SCH (21:12)
[2019-05-31] MEDS: FOLIC ACID 1 MG TAB PO SCH (21:12)
[2019-05-31] MEDS: HYDROCORTISONE SOD 50 MG in SYRINGE 0 ML IV SCH (21:13)
[2019-05-31] MEDS: PANTOprazole 40 MG TAB PO SCH (21:13)
[2019-05-31] MEDS: ONDANSETRON INJ 2 MG/ML 2 ML VIAL IV PRN (21:18)
[2019-05-31] MEDS: NSS + 20MEQ KCL 20 MEQ/1,000 ML BAG IV SCH (21:37)
[2019-05-31] MEDS ORDERED: DOCUSATE SODIUM 100 MG CAP PO PRN (22:26)
[2019-05-31] MEDS: PIPERACILLIN/TAZOBACTAM 3.375 GM in DEXTROSE 5% 100 ML IV SCH (22:45)
[2019-06-01 03:20] LABS: Basophils # (auto) 0.01 K/uL (0-0.2); Basophils % (auto) 0.1 %; Hematocrit (blood only) 37.2 % (42-52); Hemoglobin 12.7 g/dL (14.0-18.0); Immature Granulocytes # (auto) 0.11 K/uL (0.00-0.02); Immature Granulocytes % (auto) 0.6 %; Lymphocytes # (auto) 0.63 K/uL (1.2-3.4); Lymphocytes % (auto) 3.5 %; Mean Corpuscular Hemoglobin 32.4 pg (25-34); Mean Corpuscular Hgb Conc 34.1 g/dL (32-36); Mean Corpuscular Volume 94.9 fL (80-100); Mean Platelet Volume 9.6 fL (7.4-10.4); Monocytes # (auto) 1.02 K/uL (0.11-0.59); Monocytes % (auto) 5.7 %; Neutrophils # (auto) 16.16 K/uL (1.4-6.5); Neutrophils % (auto) 90.1 %; Platelet Count 225 K/uL (130-400); RDW Coefficient of Variation 15.4 % (11.5-14.5); RDW Standard Deviation 52.6 fL (36.4-46.3); Red Blood Count 3.92 M/uL (4.7-6.1); White Blood Count 17.93 K/uL (4.8-10.8)
[2019-06-01 03:30] LABS: BUN Creatinine Ratio 13.7 (10-20); Calcium 8.3 mg/dl (8.5-10.1); Creatinine Clr Calc Pharmacy 39.6 ml/min; Est GFR (African American) 34.9; Est GFR (Non-African American) 30.1; Potassium 3.5 mmol/L (3.5-5.1)
[2019-06-01 03:38] LABS: Troponin I 0.159 ng/ml (0-0.045)
[2019-06-01] MEDS: HYDROCORTISONE SOD 50 MG in SYRINGE 0 ML IV SCH ×3 (05:35→21:27)
[2019-06-01] MEDS: HEPARIN SOD 5,000 UNIT/0.5 ML VIAL SQ SCH ×3 (05:35→21:22)
[2019-06-01] MEDS: PIPERACILLIN/TAZOBACTAM 3.375 GM in DEXTROSE 5% 100 ML IV SCH ×3 (06:39→23:37)
[2019-06-01] MEDS: ARIPiprazole 5 MG TAB PO SCH (08:05)
[2019-06-01] MEDS: VENLAFAXINE HCL XR 75 MG CAPXR PO SCH (08:05)
[2019-06-01] MEDS: ASPIRIN 81 MG ECTAB PO SCH (08:05)
[2019-06-01] MEDS: BuPROPion SR 100 MG TABCR PO SCH (08:06)
[2019-06-01] MEDS: PANTOprazole 40 MG TAB PO SCH ×2 (08:06→21:22)
[2019-06-01] MEDS: FOLIC ACID 1 MG TAB PO SCH ×2 (08:06→21:22)
[2019-06-01] MEDS: VENLAFAXINE HCL XR 150 MG CAPXR PO SCH (08:06)
[2019-06-01] MEDS: TAMSULOSIN HCL 0.4 MG CAP PO SCH (08:06)
[2019-06-01] MEDS: ONDANSETRON INJ 2 MG/ML 2 ML VIAL IV PRN (08:09)
[2019-06-01] MEDS: OXYCODONE/ACETAMINOPHEN 10-325 TAB PO PRN ×2 (08:09→23:37)
--- NOTE | 2019-06-01 09:05 | Nephrology Consultation ---
Date of Consultation June 01, 2019 Assessment & Plan (1) KAYKAY (acute kidney injury): 73 y o Gentlemen with recent ureteroscopy and ureteral stent after basket retrieval of right ureteral stone presented to the hospital sepsis acute kidney injury. Has been having poor p.o. intake since the procedure. Had baseline normal kidney function at baseline creatinine 0.9-1.0 however over last to 3 weeks she was found to have slight elevation in creatinine initially a found to have creatinine of 1.8 on 05/19/2019. On admission yesterday creatinine was 2.5. Urinalysis with proteinuria and hematuria but no bacteriuria. Also found to have left lower lobe pneumonia. Right ureteral stent is in place. Acute kidney injury most likely hemodynamically mediated in the setting of sepsis, pneumonia and recent urological procedure. Renal function started to improve with IV hydration. Blood pressure has been stable. Electrolyte acceptable. --expect renal function to continue to improve, continue hemodynamic support and IV fluid. --on vanc and Zosyn, renally dosed,trough monitored by pharmacy --continue to hold diuretics, LYLE-inhibitor ARB, avoid nephrotoxic medications. --considering recent weight loss, loss of appetite and so far negative w/u, will need f/u CXR /CT chest once antibiotic completed for LLL pneumonia, to make sure pulmonary infiltrate clears up and no other lung pathology. Will follow Thank you for allowing me to participate in your patient's care. It was a pleasu re to see Bhavik. (2) Severe sepsis: (3) Left lower lobe pneumonia: History of Present Illness Reason for Consultation: Acute kidney injury Attending Physician: Babak Do, DO History of Present Illness Gio Juarez is a 73-year-old gentlemen with complex past medical history including history of prostate cancer, recent rt ureteral stone s/p ureteral stent admitted to the hospital with sepsis and pneumonia. Nephrology consult was requested to manage acute kidney injury. Electronic medical records including labs and imaging are reviewed in detail during patient's visit. Bhavik presented to ER yesterday with 1 day history of overall not feeling well, confusion, loss of appetite, increased frequency of urination and melena. Was recently diagnosed with right-sided hydronephrosis with 10 millimeter ureteral stone, had cystoscopy and basket extraction of stone and right ureteral stent placement on 05/29/2015 and was discharged home. He has been feeling unwell since he went home and has been having above symptoms and presented to the ER yesterday. On admission he was found to have leukocytosis, acute kidney injury. CT abdomen pelvis was negative for hydronephrosis and ureteral stent was seen in right position. Chest x-ray was concerning for left lower lobe pneumonia and he was started on vanc and Zosyn empirically. Has been on IV normal saline. On admission creatinine was 2.5 which is slightly improved to 2.1 this morning. At baseline had normal renal function creatinine around 0.9-1 has been his baseline. He was noted to have acute kidney injury when he had lab done on 05/19/2019 when creatinine was 1.8. Blood pressure has been relatively well controlled. His other comorbidities includes temporal arteritis, has been on methotrexate and prednisone dose was tapered down to 5 milligram daily. History of prostate cancer before currently seem to be in remission. Few weeks ago he was found to have bilateral nephrolithiasis after evaluation for gross hematuria. H/O significant weight loss over last few months which correlates with tapering of steroid dose and loss of appetite. W/U including TSH, PSA and CEA was negative. CT A/P yesterday was negative for any concerning intraabdominal pathology. He started to feel a lot better compared to yesterday. Allergies Allergy/AdvReac Type Severity Reaction Status Date / Time No Known Allergies Allergy Unknown Verified 05/31/19 15:50 Home Medications Home Medications Medication Instructions Recorded Confirmed Type folic acid 1 mg tablet 1 mg PO BID #180 tab 04/10/19 05/31/19 History furosemide 40 mg tablet 40 mg PO BID #180 tab 04/10/19 05/31/19 History methotrexate sodium 2.5 mg tablet 7.5 mg PO .COMPLEX tab 04/10/19 05/31/19 History pantoprazole 40 mg tablet,delayed 40 mg PO BID #60 tab 04/10/19 05/31/19 History release potassium chloride ER 20 mEq 40 meq PO BID #360 tab 04/10/19 05/31/19 History tablet,extended release simvastatin 40 mg tablet 40 mg PO QPM #90 tab 04/10/19 05/31/19 History spironolactone 25 mg tablet 25 mg PO BID #180 tab 04/10/19 05/31/19 History tamsulosin 0.4 mg capsule 0.4 mg PO QAM #90 cap 04/10/19 05/31/19 History venlafaxine ER 150 mg 150 mg PO QAM #90 cap 04/10/19 05/31/19 History capsule,extended release 24 hr venlafaxine ER 75 mg 75 mg PO QAM #90 cap 04/10/19 05/31/19 History capsule,extended release 24 hr hyoscyamine 0.125 mg sublingual 0.125 mg SL Q4H PRN #30 tab 05/11/19 05/31/19 Rx tablet oxycodone-acetaminophen 10 mg-325 1 tab PO Q4H PRN #150 tab 05/12/19 05/31/19 Rx mg tablet aspirin [Aspirin Low Dose] 81 mg PO QAM 05/23/19 05/31/19 History clonazepam 0.5 mg PO BID PRN 05/23/19 05/31/19 History docusate sodium [Stool Softener] 100 mg PO DAILY PRN 05/23/19 05/31/19 History prednisone 2 mg PO QAM 05/23/19 05/31/19 History prednisone 20 mg tablet 60 mg PO DAILY #100 tab 05/23/19 05/31/19 Rx oxycodone-acetaminophen [Percocet] 1 tab PO Q8H PRN #10 tab 05/29/19 05/31/19 Rx aripiprazole 5 mg PO DAILY 05/31/19 05/31/19 History bupropion HCl [Wellbutrin SR] 150 mg PO DAILY 05/31/19 05/31/19 History prednisone 5 mg PO DAILY 05/31/19 05/31/19 History Patient History Medical History Temporal arteritis (Chronic) Anxiety Atrial fibrillation Chronic back pain Chronic obstructive pulmonary disease stopped inhalers Congestive heart failure Degenerative disc disease Depression GERD (gastroesophageal reflux disease) Hyperlipidemia Hypertension Kidney stones On home oxygen therapy 3lpm prn Osteoarthritis Peripheral neuropathy bilateral hands & feet Prostate cancer with radiation Sleep apnea non-compliant with cpap Weight loss, unintentional Surgical History H/O toe surgery History of arthroscopic surgery of shoulder bilateral History of colonoscopy History of nasal septoplasty History of tonsillectomy Hx of shoulder surgery open left shoulder Family History Other Hypertension Social History Preferred Language: [place] Communication Ability: Effective 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 Beliefs That Will Affect Care: None Current Living Situation: Alone Other Information That Helps Us Care for You: No Feels Safe at Home: Yes Safety Concerns: Feels Safe At This Time Smoking Status: Former smoker Tobacco Type: cigarettes ; Do You Dip or Chew Tobacco: No ; Second Hand Exposure: No ; Hx Alcohol Use: No (former heavy drinker) Hx Substance Use: Yes (medicinal medical marijuana - at HS) substance use type: former substance user Review of Systems Review of Systems: All systems reviewed & are unremarkable except as noted in HPI & below Physical Exam Constitutional: WD/WN, vitals as above well developed and well nourished; no acute distress Eyes: PERRL, conjunctivae normal, anicteric sclerae ENMT: external ear and nose normal, oropharynx normal Ears: no hearing impairment Neck: trachea midline Respiratory: normal respiratory effort, lungs clear to auscultation no cough Auscultation: no crackles, no rales and no wheezes Cardiovascular: RRR, no murmur, no edema Gastrointestinal (Abdomen): normal bowel sounds, soft, nontender, no hepatosplenomegaly Percussion/Palpation: abdomen nontender, no guarding and abdomen not rigid Musculoskeletal: Extremities: extremities normal to inspection Gait: normal gait Skin: no rashes, warm and dry Neurologic: moves all extremities and awake; not confused Psychiatric: A+Ox3, euthymic affect Results & Data Vital Signs (Past 12 Hours) Vital Signs Temp Pulse Pulse Resp BP BP Pulse Ox 06/01/19 07:00 36.6 C 73 18 114/76 96 06/01/19 04:00 36.6 C 81 20 120/75 95 05/31/19 22:45 36.5 C 93 H 18 122/80 94 05/31/19 22:38 93 H 05/31/19 21:28 36.6 C 102 H 16 126/68 94 PG Care Time/CCT Total # of Minutes Spent Total Time Spent with Patient: Total time spent is greater than 50% in coordination of care (as documented) at patient's floor/unit and/or counseling patient: (1) Left lower lobe pneumonia Pneumonia type: due to unspecified organism Qualified Code(s): J18.1 - Lobar pneumonia, unspecified organism
[2019-06-01] MEDS: NSS + 20MEQ KCL 20 MEQ/1,000 ML BAG IV SCH (09:07)
--- NOTE | 2019-06-01 09:19 | Hospitalist Progress Note ---
Date of Service June 01, 2019 Assessment & Plan (1) Left lower lobe pneumonia: gram negative vs MRSA pneumonia, will treat with Vanco and Zosyn initially blood cultures drawn - no growth WBC markedly elevated at 26k on admission, trending down to 17k today NSS + 20 mEq K at 100cc/hr, bolus as needed but BP stable only mild hypoxia, no respiratory distress repeat labs in AM, follow up on cultures, possibly stop fluids tomorrow (2) KAYKAY (acute kidney injury): likely due to dehydration, sepsis, recent ureteral calculus and stent received 1L NSS in the ED, continue fluids at 100cc/hr Cr improved to 2.1 from 2.5, suggests that this is all prerenal electrolytes are stable Dr. Michele following, UO is adequate (3) Severe sepsis: due to pneumonia as well as possible UTI with ureteral stone no growth on blood or urine cultures repeat lactic acid was trending down appropriately, no need to follow Vanco and Zosyn, renally dosed evidence of organ failure with KAYKAY (4) Elevated troponin: no chest pain, no ischemic EKG changes could be demand ischemia repeat troponin q6 x 2 more sets - trended down this would represent demand cardiac ischemia in setting of severe sepsis, not a primary cardiac event (5) Acute dehydration: as above, give fluids at 100cc/hr resolving (6) Temporal arteritis: h/o such, will utilize stress dose steroids with Hydrocortisone 50 q8 will resume Prednisone 60mg daily as he improves clinically Subjective patient feeling well, better than at the time of admission eating well, he said that the design director discussed better eating habits with him reviewed his labs, WBC and Cr both trending down discussed with urology, findings on CT are what would be expected after stent placement discussed with nephrology, will continue IV fluids, watch urine output patient denies chest pain, fever/chills, admits to some dyspnea on exertion Review of Systems Review of Systems: All systems reviewed & are unremarkable except as noted in HPI & below Constitutional: + fatigue and + weakness; no fever, no chills and no sweats Respiratory: + dyspnea on exertion; no cough and no dyspnea Cardiovascular: no chest pain, no palpitations, no syncope and no edema Gastrointestinal: no abdominal pain, no nausea, no vomiting, no constipation and no diarrhea/loose stools Physical Exam Constitutional: cooperative and + overweight; no acute distress Eyes: PERRL, conjunctivae normal, anicteric sclerae ENMT: external ear and nose normal, oropharynx normal (dry mucous membranes) Neck: trachea midline, no thyromegaly Respiratory: normal respiratory effort, lungs clear to auscultation Auscultation: + diminished lung sounds (bases) Cardiovascular: RRR, no murmur, no edema Gastrointestinal (Abdomen): normal bowel sounds, soft, nontender, no hepatosplenomegaly Musculoskeletal: no cyanosis or clubbing, extremities motor strength 5/5 Skin: no rashes, warm and dry Neurologic: patellar DTR's 2+ bilat, sensation intact and PERRL, EOMI, accommodation nl, no face palsy, no dysarthria Psychiatric: A+Ox3, euthymic affect Lymphatic: no cervical or axillary lymphadenopathy Results & Data Vital Signs (Past 12 Hours) Vital Signs Temp Pulse Pulse Resp BP BP Pulse Ox 06/01/19 07:00 36.6 C 73 18 114/76 96 06/01/19 04:00 36.6 C 81 20 120/75 95 05/31/19 22:45 36.5 C 93 H 18 122/80 94 05/31/19 22:38 93 H 05/31/19 21:28 36.6 C 102 H 16 126/68 94 Laboratory Results Laboratory Results - last 24 hr 05/31/19 05/31/19 05/31/19 16:40 16:40 16:40 WBC 26.99 H RBC 4.90 Hgb 16.2 Hct 46.6 MCV 95.1 MCH 33.1 MCHC 34.8 RDW Std Deviation 52.8 H RDW Coeff of Melba 15.4 H Plt Count 309 MPV 9.8 Immature Gran % (Auto) 0.9 Neut % (Auto) 91.7 Lymph % (Auto) 3.2 [place] % (Auto) 4.0 Eos % (Auto) 0.1 Baso % (Auto) 0.1 Immature Gran # (Auto) 0.23 H Neut # (Auto) 24.76 H Lymph # (Auto) 0.87 L [place] # (Auto) 1.09 H Eos # (Auto) 0.02 Baso # (Auto) 0.02 Sodium 136 Potassium 3.5 Chloride 97 L Carbon Dioxide 27 Anion Gap 12.0 H BUN 29 H Creatinine 2.53 H Est Cr Clr Drug Dosing 33.1 Est GFR ( Amer) 27.9 Est GFR (Non-Af Amer) 24.0 BUN/Creatinine Ratio 11.5 Glucose 154 H Lactate Calcium 9.9 Magnesium 2.1 Total Bilirubin 1.8 H AST 17 ALT 57 Alkaline Phosphatase 104 Troponin I 0.447 H* Total Protein 7.8 Albumin 3.4 Globulin 4.4 H Albumin/Globulin Ratio 0.8 L TSH 1.730 Urine Color [place] Urine Appearance Cloudy A Urine pH 5.0 Ur Specific [place] 1.019 Urine Protein 1+ H Urine Glucose (UA) Negative Urine Ketones Negative Urine Blood 3+ H Urine Nitrite Negative Urine Bilirubin Negative Urine Urobilinogen Negative Ur Leukocyte Esterase 2+ H Urine WBC (Auto) 10-30 H Urine RBC (Auto) >30 H U Hyaline Cast (Auto) 5-10 H U Epithel Cells (Auto) >30 H Urine Bacteria (Auto) Negative Urine Yeast Not Reportable 05/31/19 05/31/19 05/31/19 18:13 20:59 20:59 WBC RBC Hgb Hct MCV MCH MCHC RDW Std Deviation RDW Coeff of Melba Plt Count MPV Immature Gran % (Auto) Neut % (Auto) Lymph % (Auto) [place] % (Auto) Eos % (Auto) Baso % (Auto) Immature Gran # (Auto) Neut # (Auto) Lymph # (Auto) [place] # (Auto) Eos # (Auto) Baso # (Auto) Sodium Potassium Chloride Carbon Dioxide Anion Gap BUN Creatinine Est Cr Clr Drug Dosing Est GFR ( Amer) Est GFR (Non-Af Amer) BUN/Creatinine Ratio Glucose Lactate 2.9 H* 2.7 H* Calcium Magnesium Total Bilirubin AST ALT Alkaline Phosphatase Troponin I 0.287 H* Total Protein Albumin Globulin Albumin/Globulin Ratio TSH Urine Color Urine Appearance Urine pH Ur Specific [place] Urine Protein Urine Glucose (UA) Urine Ketones Urine Blood Urine Nitrite Urine Bilirubin Urine Urobilinogen Ur Leukocyte Esterase Urine WBC (Auto) Urine RBC (Auto) U Hyaline Cast (Auto) U Epithel Cells (Auto) Urine Bacteria (Auto) Urine Yeast 06/01/19 06/01/19 02:54 02:54 WBC 17.93 H RBC 3.92 L Hgb 12.7 L D Hct 37.2 L MCV 94.9 MCH 32.4 MCHC 34.1 RDW Std Deviation 52.6 H RDW Coeff of Melba 15.4 H Plt Count 225 MPV 9.6 Immature Gran % (Auto) 0.6 Neut % (Auto) 90.1 Lymph % (Auto) 3.5 [place] % (Auto) 5.7 Eos % (Auto) 0.0 Baso % (Auto) 0.1 Immature Gran # (Auto) 0.11 H Neut # (Auto) 16.16 H Lymph # (Auto) 0.63 L [place] # (Auto) 1.02 H Eos # (Auto) 0.00 Baso # (Auto) 0.01 Sodium 137 Potassium 3.5 Chloride 102 Carbon Dioxide 28 Anion Gap 7.0 BUN 29 H Creatinine 2.10 H D Est Cr Clr Drug Dosing 39.6 Est GFR ( Amer) 34.9 Est GFR (Non-Af Amer) 30.1 BUN/Creatinine Ratio 13.7 Glucose 145 H Lactate Calcium 8.3 L D Magnesium Total Bilirubin AST ALT Alkaline Phosphatase Troponin I 0.159 H* Total Protein Albumin Globulin Albumin/Globulin Ratio TSH Urine Color Urine Appearance Urine pH Ur Specific [place] Urine Protein Urine Glucose (UA) Urine Ketones Urine Blood Urine Nitrite Urine Bilirubin Urine Urobilinogen Ur Leukocyte Esterase Urine WBC (Auto) Urine RBC (Auto) U Hyaline Cast (Auto) U Epithel Cells (Auto) Urine Bacteria (Auto) Urine Yeast Medications Administered Current Inpatient Medications Acetaminophen (Tylenol) 650 mg PO Q4H PRN PRN Reason: Pain or Fever Stop: 06/30/19 19:41 Aripiprazole (Abilify) 5 mg PO DAILY [facility] Stop: 07/01/19 08:59 Last Admin: 06/01/19 08:05 Dose: 5 mg Documented by: Aspirin (Ecotrin Ectab) 81 mg PO [facility] Stop: 07/01/19 08:59 Last Admin: 06/01/19 08:05 Dose: 81 mg Documented by: Bupropion HCl (Wellbutrin-Sr) 100 mg PO [facility] Stop: 07/01/19 08:59 Last Admin: 06/01/19 08:06 Dose: 100 mg Documented by: Clonazepam (Klonopin) 0.5 mg PO BID PRN PRN Reason: Anxiety Stop: 06/30/19 19:41 Docusate Sodium (Colace) 100 mg PO DAILY PRN PRN Reason: Constipation Stop: 06/30/19 22:25 Folic Acid (Folvite) 1 mg PO BID [facility] Stop: 06/30/19 20:59 Last Admin: 06/01/19 08:06 Dose: 1 mg Documented by: Heparin Sodium (Porcine) (Heparin Sodium (Porcine)) 5,000 units SQ Q8 [facility] Stop: 06/30/19 21:59 Last Admin: 06/01/19 05:35 Dose: 5,000 units Documented by: Potassium Chloride/Sodium Chloride (Normal Saline W/20 Meq Kcl) 20 meq in 1,000 mls @ 100 mls/hr IV .Q10H [facility] Stop: 06/30/19 20:29 Last Infusion: 06/01/19 04:00 Dose: 100 mls/hr Documented by: Hydrocortisone Sodium (Succinate 50 mg/ Syringe) 1 mls @ 4 mls/min IV Q8 [facility] Stop: 06/30/19 21:59 Last Admin: 06/01/19 05:35 Dose: 4 mls/min Documented by: Piperacillin Sod/Tazobactam (Sod 3.375 gm/ Dextrose) 115 mls @ 28.75 mls/hr IV Q8H [facility]; Protocol Stop: 06/07/19 22:59 Last Admin: 06/01/19 06:39 Dose: 28.8 mls/hr Documented by: Vancomycin HCl 1,500 mg/ (Sodium Chloride) 530 mls @ 200 mls/hr IV Q20H [facility]; Protocol Stop: 06/08/19 15:59 Miscellaneous Information (Consult) 1 ea N/A UD PRN PRN Reason: Consult Stop: 06/30/19 20:35 Miscellaneous Information (Consult) 1 ea N/A UD PRN PRN Reason: Consult Stop: 06/30/19 20:36 Ondansetron HCl (Zofran) 4 mg IV Q6H PRN PRN Reason: Nausea Stop: 06/30/19 19:41 Last Admin: 06/01/19 08:09 Dose: 4 mg Documented by: Oxycodone/Acetaminophen (Percocet 10/325mg) 1 tab PO Q4H PRN PRN Reason: pain Stop: 06/14/19 22:25 Last Admin: 06/01/19 08:09 Dose: 1 tab Documented by: Pantoprazole Sodium (Protonix) 40 mg PO BID [facility] Stop: 06/30/19 20:59 Last Admin: 06/01/19 08:06 Dose: 40 mg Documented by: Simvastatin (Zocor) 40 mg PO QPM [facility] Stop: 06/30/19 20:59 Last Admin: 05/31/19 21:12 Dose: 40 mg Documented by: Tamsulosin HCl (Flomax) 0.4 mg PO QAM [facility] Stop: 07/01/19 08:59 Last Admin: 06/01/19 08:06 Dose: 0.4 mg Documented by: Venlafaxine HCl (Effexor Extended Release) 75 mg PO QAM [facility] Stop: 07/01/19 08:59 Last Admin: 06/01/19 08:05 Dose: 75 mg Documented by: Venlafaxine [facility] ([facility] Extended Release) [facility] [place]: 07/01/19 08:59 Last Admin: 06/01/19 08:06 Dose: 150 mg Documented by: PG Care Time/CCT Total # of Minutes Spent Total Time Spent with Patient: Total time spent is greater than 50% in coordination of care (as documented) at patient's floor/unit and/or counseling patient: (1) Left lower lobe pneumonia Pneumonia type: due to unspecified organism Qualified Code(s): J18.1 - Lobar pneumonia, unspecified organism
--- NOTE | 2019-06-01 09:21 | Pharmacy Report ---
Pharmacy Abx Initial Consult - Date of Service June 01, 2019 - Pharmacy Dosing Scope Date of Consult: 05/31 Consultation requested by: Dr. Do Pharmacy is consulted to initiate vancomycin and Zosyn IV dosing therapy, order appropriate labs and adjust drug dose/frequency. - Subjective The patient is a 73 year old M admitted on 05/31/19 18:19. - Objective Height: 6 ft 1 in Weight: 107.5 kg Vital Signs (Past 12hrs): Vital Signs Temp Pulse Pulse Resp BP BP Pulse Ox 06/01/19 07:00 36.6 C 73 18 114/76 96 06/01/19 04:00 36.6 C 81 20 120/75 95 05/31/19 22:45 36.5 C 93 H 18 122/80 94 05/31/19 22:38 93 H 05/31/19 21:28 36.6 C 102 H 16 126/68 94 Lab Results (24hrs): Laboratory Tests (24 Hours) 06/01/19 06/01/19 05/31/19 02:54 02:54 16:40 WBC 17.93 H Neut # (Auto) 16.16 H Creatinine 2.10 H D 2.53 H Est Cr Clr Drug Dosing 39.6 33.1 05/31/19 16:40 WBC 26.99 H Neut # (Auto) 24.76 H Creatinine Est Cr Clr Drug Dosing Micro Results: 05/31/19 18:13 Aerobic Blood Culture - Pending Blood Anaerobic Blood Culture - Pending 05/31/19 18:04 Aerobic Blood Culture - Pending Blood Anaerobic Blood Culture - Pending 05/31/19 16:40 Urine Culture - Pending Urine,Clean Catch - Risk Factors for Resistance * Immunocompromised (chronic steroid therapy, chemotherapy, immunomodulators) - Assessment & Plan Assessment 73 year old M admitted yesterday for sepsis 2/2 pneumonia or UTI. He is s/p ureteroscopy and stent placement for R ureteral stone on 05/30. Was also found to have LLL pneumonia on admission. PMH is pertinent for COPD and temporal arteritis, for which he is on chronic methotrexate and prednisone. Baseline SCr typically ~1 but was found to be elevated to 1.8 earlier this month. On admission, SCr was 2.5 -> down to 2.1 today with fluid administration. Blood and urine cultures pending Plan Vancomycin and Zosyn for treatment of sepsis 2/2 pneumonia/UTI Vancomycin IV * Estimated PK Parameters: Vd 0.61 L/kg, Jareth 0.037 hr-1, t1/2 18.7 hr * Loading dose: 2750 mg (25 mg/kg) given @ 1900 last night * Maintenance dose: 1500 mg IV (13.9 mg/kg) every 20 hours - dosing aggressively as I anticipate SCr to continue to improve * Goal trough level : 15 to 20 mcg/mL * Will reassess tomorrow and adjust dose if renal function has improved further or order trough level to evaluate current dosing * A less than traditional dose and/or extended dosing interval has/have been selected due to likelihood of drug accumulation in obese patient/patient with h/o CKD. * MRSA nasal swab to r/o MRSA pneumonia Piperacillin/tazobactam * 4.5 g bolus administered over 30 minutes, then 3.375 g IV extended infusion every 8 hours for CrCl greater than 20 mL/min Pharmacy will continue to follow and will adjust dose/frequency as necessary. Thank you.
--- NOTE | 2019-06-01 09:27 | Urology Consultation ---
Date of Consultation June 01, 2019 Assessment & Plan (1) KAYKAY (acute kidney injury): (2) Kidney stone: 73yo M s/p Right URS, LL and stent secondary to obstructing 10mm stone admitted with sepsis, UTI vs Pneumonia CT imaging reviewed by Dr. Chen. Inflammation of left ureter as anticipated s/p procedure. Continue broad spectrum abx while awaiting sensitivities. Appreciate nephrology's input. No acute intervention required. Will continue to follow while inpatient. History of Present Illness Reason for Consultation: kaykay s/p URS Requesting Physician: Dr. Capellan Attending Physician: Babak Do, History of Present Illness 73yo M POD #3 Cysto, Right URS, LL, right ureteral stent placement secondary to obs 10mm Right ureteral stone with Significant PMHx including prostate cancer, COPD on home O2, admitted through [facility] ED for generalized confusion, loss of appetite, urinary frequency, melena and sepsis. Nephrology on board for KAYKAY, baseline Creatinine 0.9-1.0, elevated to 2.5 on admission. Leukocytosis noted. UA negative for infection prior to procedure. CT imaging reviewed - right ureteral stent in good position. CXR suggests possible Left lower lobe pneumonia, on empiric vancomycin and zosyn while awaiting UC&S. BCx and UC&S pending. Pt acknowledges right sided abdominal discomfort, wishes to increase pain control. Voiding spontaneously, small amounts of therese colored urine per nursing. Some nausea, no emesis. Poor appetite. Allergies Allergy/AdvReac Type Severity Reaction Status Date / Time No Known Allergies Allergy Unknown Verified 05/31/19 15:50 Home Medications Home Medications Medication Instructions Recorded Confirmed Type folic acid 1 mg tablet 1 mg PO BID #180 tab 04/10/19 05/31/19 History furosemide 40 mg tablet 40 mg PO BID #180 tab 04/10/19 05/31/19 History methotrexate sodium 2.5 mg tablet 7.5 mg PO .COMPLEX tab 04/10/19 05/31/19 History pantoprazole 40 mg tablet,delayed 40 mg PO BID #60 tab 04/10/19 05/31/19 History release potassium chloride ER 20 mEq 40 meq PO BID #360 tab 04/10/19 05/31/19 History tablet,extended release simvastatin 40 mg tablet 40 mg PO QPM #90 tab 04/10/19 05/31/19 History spironolactone 25 mg tablet 25 mg PO BID #180 tab 04/10/19 05/31/19 History tamsulosin 0.4 mg capsule 0.4 mg PO QAM #90 cap 04/10/19 05/31/19 History venlafaxine ER 150 mg 150 mg PO QAM #90 cap 04/10/19 05/31/19 History capsule,extended release 24 hr venlafaxine ER 75 mg 75 mg PO QAM #90 cap 04/10/19 05/31/19 History capsule,extended release 24 hr hyoscyamine 0.125 mg sublingual 0.125 mg SL Q4H PRN #30 tab 05/11/19 05/31/19 Rx tablet oxycodone-acetaminophen 10 mg-325 1 tab PO Q4H PRN #150 tab 05/12/19 05/31/19 Rx mg tablet aspirin [Aspirin Low Dose] 81 mg PO QAM 05/23/19 05/31/19 History clonazepam 0.5 mg PO BID PRN 05/23/19 05/31/19 History docusate sodium [Stool Softener] 100 mg PO DAILY PRN 05/23/19 05/31/19 History prednisone 2 mg PO QAM 05/23/19 05/31/19 History prednisone 20 mg tablet 60 mg PO DAILY #100 tab 05/23/19 05/31/19 Rx oxycodone-acetaminophen [Percocet] 1 tab PO Q8H PRN #10 tab 05/29/19 05/31/19 Rx aripiprazole 5 mg PO DAILY 05/31/19 05/31/19 History bupropion HCl [Wellbutrin SR] 150 mg PO DAILY 05/31/19 05/31/19 History prednisone 5 mg PO DAILY 05/31/19 05/31/19 History Patient History Medical History Temporal arteritis (Chronic) Anxiety Atrial fibrillation Chronic back pain Chronic obstructive pulmonary disease stopped inhalers Congestive heart failure Degenerative disc disease Depression GERD (gastroesophageal reflux disease) Hyperlipidemia Hypertension Kidney stones On home oxygen therapy 3lpm prn Osteoarthritis Peripheral neuropathy bilateral hands & feet Prostate cancer with radiation Sleep apnea non-compliant with cpap Weight loss, unintentional Surgical History H/O toe surgery History of arthroscopic surgery of shoulder bilateral History of colonoscopy History of nasal septoplasty History of tonsillectomy Hx of shoulder surgery open left shoulder Family History Other Hypertension Social History Preferred Language: Spanish Communication Ability: Effective Veterinary Medical Officer Required: No Beliefs That Will Affect Care: None Current Living Situation: Alone Other Information That Helps Us Care for You: No Feels Safe at Home: Yes Safety Concerns: Feels Safe At This Time Smoking Status: Former smoker Tobacco Type: cigarettes ; Do You Dip or Chew Tobacco: No ; Second Hand Exposure: No ; Hx Alcohol Use: No (former heavy drinker) Hx Substance Use: Yes (medicinal medical marijuana - at HS) substance use type: former substance user Review of Systems Review of Systems: All systems reviewed & are unremarkable except as noted in HPI & below Physical Exam Constitutional: no acute distress and not ill appearing Eyes: no nystagmus ENMT: Ears: no hearing impairment Neck: trachea midline Respiratory: no respiratory distress and no cough NC intact Cardiovascular: Vessels: no JVD Chest (Breasts): Chest: normal inspection of chest Gastrointestinal (Abdomen): Inspection/Auscultation: abdomen not distended and no abdominal edema Percussion/Palpation: abdomen soft; abdomen nontender right sided abdomen tender upon palpation Musculoskeletal: Head/Neck/Chest: normocephalic and head atraumatic Skin: no rashes, warm and dry Neurologic: awake; not confused and not obtunded Psychiatric: Orientation: alert and oriented x 3 Eye Contact: good eye contact Affect: no depressed affect Genitourinary: no CVA tenderness Lymphatic: no lymphadenopathy and no lymphedema Results & Data Vital Signs (Past 12 Hours) Vital Signs Temp Pulse Pulse Resp BP BP Pulse Ox 06/01/19 07:00 36.6 C 73 18 114/76 96 06/01/19 04:00 36.6 C 81 20 120/75 95 05/31/19 22:45 36.5 C 93 H 18 122/80 94 05/31/19 22:38 93 H 05/31/19 21:28 36.6 C 102 H 16 126/68 94 PG Care Time/CCT Total # of Minutes Spent Total Time Spent with Patient: Total time spent is greater than 50% in coordination of care (as documented) at patient's floor/unit and/or counseling patient:
[2019-06-01] MEDS: VANCOMYCIN HCL 1,500 MG in SODIUM CHLORIDE 0.9% 500 ML IV SCH (15:50)
[2019-06-01] MEDS: SIMVASTATIN 40 MG TAB PO SCH (21:21)
[2019-06-02] MEDS: NSS + 20MEQ KCL 20 MEQ/1,000 ML BAG IV SCH ×2 (03:31→04:08)
[2019-06-02] MEDS: OXYCODONE/ACETAMINOPHEN 10-325 TAB PO PRN ×3 (04:12→22:01)
[2019-06-02] MEDS: HEPARIN SOD 5,000 UNIT/0.5 ML VIAL SQ SCH (04:12)
[2019-06-02] MEDS: HYDROCORTISONE SOD 50 MG in SYRINGE 0 ML IV SCH ×3 (04:13→21:59)
[2019-06-02 06:59] LABS: Creatinine Clr Calc Pharmacy 51.1 ml/min; Est GFR (African American) 47.4; Est GFR (Non-African American) 40.9
[2019-06-02] MEDS: BuPROPion SR 100 MG TABCR PO SCH (07:10)
[2019-06-02] MEDS: VENLAFAXINE HCL XR 150 MG CAPXR PO SCH (07:11)
[2019-06-02] MEDS: FOLIC ACID 1 MG TAB PO SCH ×2 (07:11→21:59)
[2019-06-02] MEDS: VENLAFAXINE HCL XR 75 MG CAPXR PO SCH (07:11)
[2019-06-02] MEDS: ARIPiprazole 5 MG TAB PO SCH (07:11)
[2019-06-02] MEDS: ASPIRIN 81 MG ECTAB PO SCH (07:11)
[2019-06-02] MEDS: TAMSULOSIN HCL 0.4 MG CAP PO SCH (07:12)
[2019-06-02] MEDS: PIPERACILLIN/TAZOBACTAM 3.375 GM in DEXTROSE 5% 100 ML IV SCH ×3 (07:21→23:24)
--- NOTE | 2019-06-02 08:04 | Urology Progress Note ---
Date of Service June 02, 2019 Assessment & Plan (1) KAYKYA (acute kidney injury): 73yo M s/p Right URS, LL and stent secondary to obstructing 10mm stone admitted with sepsis, UTI vs Pneumonia Prelim UC&S negative for infection. Kidney function improving, pt subjectively feeling better. Plan to continue ambulation, trend Cr and UOP. No new recommendations from standpoint. Plan to keep post operative followup as scheduled on 06/[address] Chen, appt reminder left in discharge instructions. Thank you for allowing us to participate in the acute care of Mr. Juarez. Please reconsult us with additional questions, concerns or changes in patient status. Subjective Pt continues to subjectively and clinically improve. States he feels better, "more cognizant". Denies any trouble overnight. Voiding spontaneously, about every 1-2 hours. Right abd pain improved- likely stent irritation. States he wants to work on ambulating more today. He lives at home alone and does not feel comfortable going home yet. Review of Systems Review of Systems: All systems reviewed & are unremarkable except as noted in HPI & below Physical Exam Constitutional: no acute distress and not ill appearing Eyes: no nystagmus ENMT: Ears: no hearing impairment Neck: trachea midline Respiratory: no respiratory distress and no cough Cardiovascular: Vessels: no JVD Chest (Breasts): Chest: normal inspection of chest Gastrointestinal (Abdomen): Inspection/Auscultation: abdomen not distended and no abdominal edema Percussion/Palpation: abdomen soft; abdomen nontender Musculoskeletal: Head/Neck/Chest: normocephalic and head atraumatic Skin: no rashes, warm and dry Neurologic: awake; not confused and not obtunded Psychiatric: Orientation: alert and oriented x 3 Eye Contact: good eye contact Affect: no depressed affect Genitourinary: no CVA tenderness Lymphatic: no lymphadenopathy and no lymphedema Results & Data Vital Signs (Past 12 Hours) Vital Signs Temp Pulse Pulse Resp BP BP Pulse Ox 06/02/19 07:41 36.4 C L 67 16 115/58 L 96 06/02/19 03:38 36.5 C 81 19 107/66 94 06/01/19 23:22 79 06/01/19 23:07 36.1 C L 75 16 152/70 H 96 PG Care Time/CCT Total # of Minutes Spent Total Time Spent with Patient: Total time spent is greater than 50% in coordination of care (as documented) at patient's floor/unit and/or counseling patient:
[2019-06-02] MEDS: PANTOprazole 40 MG TAB PO SCH ×2 (08:31→21:59)
--- NOTE | 2019-06-02 09:49 | Nephrology Progress Note ---
Date of Service June 02, 2019 Assessment & Plan (1) KAYKAY (acute kidney injury): 73 y o Gentlemen with recent ureteroscopy and ureteral stent after basket retrieval of right ureteral stone presented to the hospital sepsis acute kidney injury. Has been having poor p.o. intake since the procedure. Had baseline normal kidney function at baseline creatinine 0.9-1.0 however over last to 3 weeks she was found to have slight elevation in creatinine initially a found to have creatinine of 1.8 on 05/19/2019. On admission yesterday creatinine was 2.5. Urinalysis with proteinuria and hematuria but no bacteriuria. Also found to have left lower lobe pneumonia. Right ureteral stent is in place. Acute kidney injury most likely hemodynamically mediated in the setting of sepsis, pneumonia and recent urological procedure. Renal function continues to improve with IV hydration. Blood pressure has been stable. Electrolyte acceptable. --expect renal function to continue to improve, continue hemodynamic support. DC IV fluid as po intake has been better. Continue daily renal panel. --on vanc and Zosyn, renally dosed,trough monitored by pharmacy --continue to hold diuretics, LYLE-inhibitor ARB, avoid nephrotoxic medications. --considering recent weight loss, loss of appetite and so far negative w/u, recommend f/u CXR /CT chest once antibiotic completed for LLL pneumonia, to make sure pulmonary infiltrate clears up and no other lung pathology. Will sign off. Thanks! Thank you for allowing me to participate in your patient's care. It was a pleasure to see Bhavik. (2) Severe sepsis: (3) Left lower lobe pneumonia: Subjective Bhavik was seen and examined this am. Overall feeling better, denies any specific symptoms. Renal function improving. BP stable. Decent UO. Review of Systems Review of Systems: All systems reviewed & are unremarkable except as noted in HPI & below Physical Exam Constitutional: WD/WN, vitals as above well developed and well nourished; no acute distress Eyes: PERRL, conjunctivae normal, anicteric sclerae ENMT: Ears: no hearing impairment Neck: trachea midline Respiratory: normal respiratory effort, lungs clear to auscultation no cough Auscultation: no crackles, no rales and no wheezes Cardiovascular: RRR, no murmur, no edema Skin: no rashes, warm and dry Neurologic: moves all extremities and awake; not confused Psychiatric: A+Ox3, euthymic affect Results & Data Vital Signs (Past 12 Hours) Vital Signs Temp Pulse Pulse Resp BP BP Pulse Ox 06/02/19 07:41 36.4 C L 67 16 115/58 L 96 06/02/19 03:38 36.5 C 81 19 107/66 94 06/01/19 23:22 79 06/01/19 23:07 36.1 C L 75 16 152/70 H 96 PG Care Time/CCT Total # of Minutes Spent Total Time Spent with Patient: Total time spent is greater than 50% in coord ination of care (as documented) at patient's floor/unit and/or counseling patient: (1) Left lower lobe pneumonia Pneumonia type: due to unspecified organism Qualified Code(s): J18.1 - Lobar pneumonia, unspecified organism
[2019-06-02] MEDS: VANCOMYCIN HCL 1,500 MG in SODIUM CHLORIDE 0.9% 500 ML IV SCH (11:18)
--- NOTE | 2019-06-02 16:45 | Hospitalist Progress Note ---
Date of Service June 02, 2019 Assessment & Plan (1) Left lower lobe pneumonia: gram negative vs MRSA pneumonia, will treat with Vanco and Zosyn initially blood cultures drawn - no growth stop Vanco today as MRSA swab negative WBC markedly elevated at 26k on admission, trending down to 17k yesterday, repeat tomorrow stop IV fluids today only mild hypoxia, no respiratory distress repeat labs in AM, follow up on cultures plan to use Zosyn while inpatient, change to Augmentin on d/c, complete 7 days total (2) KAYKAY (acute kidney injury): likely due to dehydration, sepsis, recent ureteral calculus and stent received 1L NSS in the ED, treated with NSS at 100cc/hr Cr improved to 2.1 from 2.5, suggests that this is all prerenal down further today to 1.[address] Michele following, UO is adequate repeat BMP tomorrow (3) Severe sepsis: due to pneumonia no growth on blood or urine cultures repeat lactic acid was trending down appropriately, no need to follow Vanco and Zosyn initially, stop Vanco today evidence of organ failure with KAYKAY on admission, resolving (4) Elevated troponin: no chest pain, no ischemic EKG changes could be demand ischemia repeat troponin q6 x 2 more sets - trended down this would represent demand cardiac ischemia in setting of severe sepsis, not a primary cardiac event (5) Acute dehydration: as above, give fluids at 100cc/hr resolved (6) Temporal arteritis: h/o such, will utilize stress dose steroids with Hydrocortisone 50 q8 will resume Prednisone 60mg daily tomorrow (7) Weight loss: very significant, unintentional will check CT head to look for cause of loss of taste and smell check CT chest to look for malignancy Subjective patient denies fever/chills he is having difficulty eating, loss of taste ans smell he regurgitates or vomits a lot of what he eats reviewed labs, Cr improving to 1.6 no growth on blood/urine cultures discussed with family friend at the bedside we discussed getting a CT head due to loss of taste/smell and CT chest due to the weight loss Review of Systems Review of Systems: All systems reviewed & are unremarkable except as noted in HPI & below Constitutional: no fever, no chills and no sweats Ear, Nose, Mouth, Throat: + problem reported (loss of taste, smell) Respiratory: no cough, no dyspnea and no dyspnea on exertion Cardiovascular: no chest pain and no edema Gastrointestinal: + nausea and + vomiting; no abdominal pain, no constipation and no diarrhea/loose stools Physical Exam Constitutional: cooperative and + overweight; no acute distress Eyes: PERRL, conjunctivae normal, anicteric sclerae ENMT: external ear and nose normal, oropharynx normal (dry mucous membranes) Neck: trachea midline, no thyromegaly Respiratory: normal respiratory effort, lungs clear to auscultation A uscultation: + diminished lung sounds (bases) Cardiovascular: RRR, no murmur, no edema Gastrointestinal (Abdomen): normal bowel sounds, soft, nontender, no hepatosplenomegaly Musculoskeletal: no cyanosis or clubbing, extremities motor strength 5/5 Skin: no rashes, warm and dry Neurologic: patellar DTR's 2+ bilat, sensation intact and PERRL, EOMI, accommodation nl, no face palsy, no dysarthria Psychiatric: A+Ox3, euthymic affect Lymphatic: no cervical or axillary lymphadenopathy Results & Data Vital Signs (Past 12 Hours) Vital Signs Temp Pulse Pulse Resp BP BP Pulse Ox 06/02/19 15:46 100 H 06/02/19 15:21 36.5 C 86 19 135/69 91 06/02/19 12:01 36.8 C 83 16 128/81 93 06/02/19 07:41 36.4 C L 67 16 115/58 L 96 Laboratory Results Laboratory Results - last 24 hr 06/02/19 05:41 Creatinine 1.63 H D Est Cr Clr Drug Dosing 51.1 Est GFR ( Amer) 47.4 Est GFR (Non-Af Amer) 40.9 Medications Administered Current Inpatient Medications Acetaminophen (Tylenol) 650 mg PO Q4H PRN PRN Reason: Pain or Fever Stop: 06/30/19 19:41 Aripiprazole (Abilify) 5 mg PO DAILY [facility] Stop: 07/01/19 08:59 Last Admin: 06/02/19 07:11 Dose: 5 mg Documented by: Aspirin (Ecotrin Ectab) [facility] [place] Stop: 07/01/19 08:59 Last Admin: 06/02/19 07:11 Dose: 81 mg Documented by: Bupropion HCl (Wellbutrin-Sr) [facility] [place] Stop: 07/01/19 08:59 Last Admin: 06/02/19 07:10 Dose: 100 mg Documented by: Clonazepam (Klonopin) 0.5 mg PO BID PRN PRN Reason: Anxiety Stop: 06/30/19 19:41 Docusate Sodium (Colace) 100 mg PO DAILY PRN PRN Reason: Constipation Stop: 06/30/19 22:25 Folic Acid (Folvite) 1 mg PO BID [facility] Stop: 06/30/19 20:59 Last Admin: 06/02/19 21:59 Dose: 1 mg Documented by: Heparin Sodium (Porcine) (Heparin Sodium (Porcine)) 5,000 units SQ Q8 [facility] Stop: 06/30/19 21:59 Last Admin: 06/02/19 04:12 Dose: 5,000 units Documented by: Hydrocortisone Sodium (Succinate 50 mg/ Syringe) 1 mls @ 4 mls/min IV Q8 [facility] Stop: 06/30/19 21:59 Last Admin: 06/02/19 21:59 Dose: 4 mls/min Documented by: Piperacillin Sod/Tazobactam (Sod 3.375 gm/ Dextrose) 115 mls @ 28.75 mls/hr IV Q8H [facility]; Protocol Stop: 06/07/19 22:59 Last Infusion: 06/02/19 18:20 Dose: Infused Documented by: Miscellaneous Information (Consult) 1 ea N/A UD PRN PRN Reason: Consult Stop: 06/30/19 20:35 Ondansetron HCl (Zofran) 4 mg IV Q6H PRN PRN Reason: Nausea Stop: 06/30/19 19:41 Last Admin: 06/01/19 08:09 Dose: 4 mg Documented by: Oxycodone/Acetaminophen (Percocet 10/325mg) 1 tab PO Q4H PRN PRN Reason: pain Stop: 06/14/19 22:25 Last Admin: 06/02/19 22:01 Dose: 1 tab Documented by: Pantoprazole Sodium (Protonix) 40 mg PO BID [facility] Stop: 06/30/19 20:59 Last Admin: 06/02/19 21:59 Dose: 40 mg Documented by: Simvastatin (Zocor) 40 mg PO QPM [facility] Stop: 06/30/19 20:59 Last Admin: 06/02/19 22:00 Dose: 40 mg Documented by: Tamsulosin HCl (Flomax) 0.[facility] [place] Stop: 07/01/19 08:59 Last Admin: 06/02/19 07:12 Dose: 0.4 mg Documented by: Venlafaxine HCl (Effexor Extended Release) 75 [facility] [place] Stop: 07/01/19 08:59 Last Admin: 06/02/19 07:11 Dose: 75 mg Documented by: Venlafaxine HCl (Effexor Extended Release) 150 [facility] [place] Stop: 07/01/19 08:59 Last Admin: 06/02/19 07:11 Dose: 150 mg Documented by: PG Care Time/CCT Total # of Minutes Spent Total Time Spent with Patient: Total time spent is greater than 50% in coordination of care (as documented) at patient's floor/unit and/or counseling patient: (1) Left lower lobe pneumonia Pneumonia type: due to unspecified organism Qualified Code(s): J18.1 - Lobar pneumonia, unspecified organism
[2019-06-02] MEDS: SIMVASTATIN 40 MG TAB PO SCH (22:00)
[2019-06-03] MEDS: OXYCODONE/ACETAMINOPHEN 10-325 TAB PO PRN ×3 (04:49→21:31)
[2019-06-03] MEDS: HYDROCORTISONE SOD 50 MG in SYRINGE 0 ML IV SCH ×3 (04:49→21:28)
[2019-06-03 05:53] LABS: Basophils # (auto) 0.01 K/uL (0-0.2); Basophils % (auto) 0.1 %; Eosinophils # (auto) 0.01 K/uL (0-0.5); Eosinophils % (auto) 0.1 %; Hematocrit (blood only) 35.8 % (42-52); Hemoglobin 11.6 g/dL (14.0-18.0); Immature Granulocytes % (auto) 0.7 %; Lymphocytes # (auto) 0.63 K/uL (1.2-3.4); Lymphocytes % (auto) 4.2 %; Mean Corpuscular Hemoglobin 31.6 pg (25-34); Mean Corpuscular Hgb Conc 32.4 g/dL (32-36); Mean Corpuscular Volume 97.5 fL (80-100); Mean Platelet Volume 10.3 fL (7.4-10.4); Monocytes # (auto) 1.33 K/uL (0.11-0.59); Monocytes % (auto) 8.9 %; Neutrophils # (auto) 12.92 K/uL (1.4-6.5); Platelet Count 218 K/uL (130-400); RDW Coefficient of Variation 15.7 % (11.5-14.5); RDW Standard Deviation 55.1 fL (36.4-46.3); Red Blood Count 3.67 M/uL (4.7-6.1)
[2019-06-03 06:32] LABS: BUN Creatinine Ratio 12.4 (10-20); Calcium 8.5 mg/dl (8.5-10.1); Creatinine Clr Calc Pharmacy 56.8 ml/min; Est GFR (African American) 53.3; Potassium 3.7 mmol/L (3.5-5.1)
[2019-06-03] MEDS ORDERED: SODIUM CHLORIDE 0.9% 500 ML IV SCH (07:45)
[2019-06-03] MEDS: PIPERACILLIN/TAZOBACTAM 3.375 GM in DEXTROSE 5% 100 ML IV SCH ×3 (07:55→22:50)
[2019-06-03] MEDS: ASPIRIN 81 MG ECTAB PO SCH (08:06)
[2019-06-03] MEDS: ARIPiprazole 5 MG TAB PO SCH (08:06)
[2019-06-03] MEDS: TAMSULOSIN HCL 0.4 MG CAP PO SCH (08:08)
[2019-06-03] MEDS: PANTOprazole 40 MG TAB PO SCH ×2 (08:08→17:19)
[2019-06-03] MEDS: FOLIC ACID 1 MG TAB PO SCH ×2 (08:08→20:59)
[2019-06-03] MEDS: VENLAFAXINE HCL XR 75 MG CAPXR PO SCH (09:20)
[2019-06-03] MEDS: BuPROPion SR 100 MG TABCR PO SCH (09:20)
[2019-06-03] MEDS: VENLAFAXINE HCL XR 150 MG CAPXR PO SCH (09:20)
[2019-06-03] MEDS ORDERED: IOVERSOL 100ml IV PRN (10:39)
--- NOTE | 2019-06-03 10:48 | CT Scan Report ---
CT head/brain wo con CT DOSE: HISTORY: Mental status change Loss of smell and taste, r/o tumor TECHNIQUE: Multiaxial CT images of the head were performed without the use of intravenous contrast. A dose lowering technique was utilized adhering to the principles of ALARA. Comparison: None. Findings: The paranasal sinuses and mastoid air cells are clear. The calvarium and skull base are int act. The ventricles and sulci are within normal limits. There is no mass, hematoma, midline shift, or acute infarct. Age-related atrophy and chronic small vessel change Impression: No acute intracranial abnormality. Age-related atrophy and chronic small vessel change. The above report was generated using voice recognition software. It may contain grammatical, syntax or spelling errors. Electronically signed by: Cuco Ruiz M.D. 06/03/2019 10:47 AM
--- NOTE | 2019-06-03 10:58 | CT Scan Report ---
CT chest w con CT DOSE: 2098.80 mGy.cm HISTORY: Weight loss Unexplained weight loss, 70lbs TECHNIQUE: Multiaxial CT images of the chest were performed following the intravenous administration of contrast. A dose lowering technique was utilized adhering to the principles of ALARA. COMPARISON: 11/14/2015 FINDINGS: Chronic interstitial change throughout both hemithoraces. No significant mass or nodularity in the lung parenchyma. Moderate distention of the esophagus with a moderate amount of debris. Possibility of either reflux o r a distal esophageal lesion at the gastroesophageal junction should be considered. Endoscopic evalua tion is suggested. Moderate atherosclerotic change thoracic aorta. No evidence for aneurysm or dissection. No significan t hilar or mediastinal adenopathy. It is noted made of a right renal stent. IMPRESSION: 1. Moderate distention of the esophagus extending to the gastroesophageal junction. 2. Endoscopic evaluation is suggested to exclude any possibility of a distal esophageal lesion. 3. Remainder the chest is remarkable only for chronic interstitial change. The above report was generated using voice recognition software. It may contain grammatical, syntax or spelling errors. Electronically signed by: Cuco Ruiz M.D. 06/03/2019 10:57 AM
--- NOTE | 2019-06-03 14:18 | Hospitalist Progress Note ---
Date of Service June 03, 2019 Assessment & Plan (1) Left lower lobe pneumonia: gram negative vs MRSA pneumonia, will treat with Vanco and Zosyn initially blood cultures drawn - no growth stop Vanco as MRSA swab negative WBC markedly elevated at 26k on admission, trending down to 15k today stop IV fluids today breathing is stable, normal effort, minimal cough, showing excellent response repeat labs in AM, follow up on cultures plan to use Zosyn while inpatient, change to Augmentin on d/c, complete 7 days total (2) KAYKAY (acute kidney injury): likely due to dehydration, sepsis, recent ureteral calculus and stent received 1L NSS in the ED, treated with NSS at 100cc/hr, fluids now stopped Cr improved to 2.1 from 2.5, suggests that this is all prerenal down further to 1.4 today electrolytes are stable Dr. Michele following, UO is adequate repeat BMP tomorrow (3) Severe sepsis: due to pneumonia no growth on blood or urine cultures repeat lactic acid was trending down appropriately, no need to follow Vanco and Zosyn initially, stop Vanco 06/02 evidence of organ failure with KAYKAY on admission, resolved (4) Esophageal dilatation: h/o poor intake for almost a year describes vomiting and regurgitating a lot of what he eats cannot taste or smell CT chest 06/03 with moderate esophageal dilatation will consult GI to see, anticipate EGD on Wednesday discussed these findings with patient (5) Elevated troponin: no chest pain, no ischemic EKG changes could be demand ischemia repeat troponin q6 x 2 more sets - trended down this would represent demand cardiac ischemia in setting of severe sepsis, not a primary cardiac event (6) Weight loss: very significant, unintentional appears due to dilatation of esophagus and overall poor oral intake, vomiting no obvious evidence of malignancy on both CT chest and CT abdomen pelvis EGD on Wednesday likely, want to rule out distal esophageal lesion (7) Acute dehydration: no further fluids, well hydrated (8) Temporal arteritis: h/o such, will utilize stress dose steroids with Hydrocortisone 50 q8 will resume Prednisone 60mg daily when he is taking PO Subjective patient continues to have issues vomiting or regurgitating what he eats discussed the results of the CT chest this morning, shows moderate distension of the esophagus reviewed chart, previous EGD with Dr. Segura in 2016, will consult [facility] no dyspnea, no fever, no cough, no chills no abdominal pain with the stone Cr down to 1.4 today, WBC down to 15 Review of Systems Review of Systems: All systems reviewed & are unremarkable except as noted in HPI & below Gastrointestinal: + early satiety, + heartburn, + nausea and + vomiting Physical Exam Constitutional: cooperative and + overweight; no acute distress Eyes: PERRL, conjunctivae normal, anicteric sclerae ENMT: external ear and nose normal, oropharynx normal (dry mucous membranes) Neck: trachea midline, no thyromegaly Respiratory: normal respiratory effort, lungs clear to auscultation Cardiovascular: RRR, no murmur, no edema Gastrointestinal (Abdomen): normal bowel sounds, soft, nontender, no hepatosplenomegaly Musculoskeletal: no cyanosis or clubbing, extremities motor strength 5/5 Skin: no rashes, warm and dry Neurologic: patellar DTR's 2+ bilat, sensation intact and PERRL, EOMI, accommodation nl, no face palsy, no dysarthria Psychiatric: A+Ox3, euthymic affect Lymphatic: no cervical or axillary lymphadenopathy Results & Data Vital Signs (Past 12 Hours) Vital Signs Temp Pulse Resp BP BP Pulse Ox 06/03/19 11:46 36.7 C 66 19 151/81 H 96 06/03/19 07:43 36.7 C 72 19 149/86 H 98 06/03/19 03:43 36.5 C 89 18 146/85 H 94 Laboratory Results Laboratory Results - last 24 hr 06/03/19 06/03/19 05:21 05:21 WBC 15.00 H RBC 3.67 L Hgb 11.6 L Hct 35.8 L MCV 97.5 MCH 31.6 MCHC 32.4 RDW Std Deviation 55.1 H RDW Coeff of Melba 15.7 H Plt Count 218 MPV 10.3 Immature Gran % (Auto) 0.7 Neut % (Auto) 86.0 Lymph % (Auto) 4.2 [place] % (Auto) 8.9 Eos % (Auto) 0.1 Baso % (Auto) 0.1 Immature Gran # (Auto) 0.10 H Neut # (Auto) 12.92 H Lymph # (Auto) 0.63 L [place] # (Auto) 1.33 H Eos # (Auto) 0.01 Baso # (Auto) 0.01 Sodium 139 Potassium 3.7 Chloride 106 Carbon Dioxide 28 Anion Gap 5.0 BUN 18 Creatinine 1.48 H Est Cr Clr Drug Dosing 56.8 Est GFR ( Amer) 53.3 Est GFR (Non-Af Amer) 46.0 BUN/Creatinine Ratio 12.4 Glucose 92 [address]cium 8[address] HEAD Impression: No acute intracranial abnormality. Age-related atrophy and chronic small vessel change. CT CHEST WITH IV CONTRAST IMPRESSION: 1. Moderate distention of the esophagus extending to the gastroesophageal junction. 2. Endoscopic evaluation is suggested to exclude any possibility of a distal esophageal lesion. 3. Remainder the chest is remarkable only for chronic interstitial change. Medications Administered Current Inpatient Medications Acetaminophen (Tylenol) 650 mg PO Q4H PRN PRN Reason: Pain or Fever Stop: 06/30/19 19:41 Aripiprazole (Abilify) 5 mg PO DAILY [facility] Stop: 07/01/19 08:59 Last Admin: 06/03/19 08:06 Dose: 5 mg Documented by: Aspirin (Ecotrin Ectab) 81 mg PO QAM [facility] Stop: 07/01/19 08:59 Last Admin: 06/03/19 08:06 Dose: 81 mg Documented by: Bupropion HCl (Wellbutrin-Sr) 100 mg PO QAM [facility] Stop: 07/01/19 08:59 Last Admin: 06/03/19 09:20 Dose: 100 mg Documented by: Clonazepam (Klonopin) 0.5 mg PO BID PRN PRN Reason: Anxiety Stop: 06/30/19 19:41 Docusate Sodium (Colace) 100 mg PO DAILY PRN PRN Reason: Constipation Stop: 06/30/19 22:25 Folic Acid (Folvite) 1 mg PO BID [facility] Stop: 06/30/19 20:59 Last Admin: 06/03/19 08:08 Dose: 1 mg Documented by: Heparin Sodium (Porcine) (Heparin Sodium (Porcine)) 5,000 units SQ Q8 [facility] Stop: 06/30/19 21:59 Last Admin: 06/02/19 04:12 Dose: 5,000 units Documented by: Hydrocortisone Sodium (Succinate 50 mg/ Syringe) 1 mls @ 4 mls/min IV Q8 [facility] Stop: 06/30/19 21:59 Last Admin: 06/03/19 04:49 Dose: 4 mls/min Documented by: Piperacillin Sod/Tazobactam (Sod 3.375 gm/ Dextrose) 115 mls @ 28.75 mls/hr IV Q8H [facility]; Protocol Stop: 06/07/19 22:59 Last Infusion: 06/03/19 12:22 Dose: Infused Documented by: Ioversol (Optiray 320 100ml) 91 ml IV ONCE PRN PRN Reason: Interaction Checking Stop: 06/07/19 10:38 Last Admin: 06/03/19 10:40 Dose: 91 ml Documented by: Miscellaneous Information (Consult) 1 ea N/A UD PRN PRN Reason: Consult Stop: 06/30/19 20:35 Ondansetron HCl (Zofran) 4 mg IV Q6H PRN PRN Reason: Nausea Stop: 06/30/19 19:41 Last Admin: 06/01/19 08:09 Dose: 4 mg Documented by: Oxycodone/Acetaminophen (Percocet 10/325mg) 1 tab PO Q4H PRN PRN Reason: pain Stop: 06/14/19 22:25 Last Admin: 06/03/19 04:49 Dose: 1 tab Documented by: Pantoprazole Sodium (Protonix) 40 mg PO BID [facility] Stop: 06/30/19 20:59 Last Admin: 06/03/19 08:08 Dose: 40 mg Documented by: Simvastatin (Zocor) 40 mg PO QPM [facility] Stop: 06/30/19 20:59 Last Admin: 06/02/19 22:00 Dose: 40 mg Documented by: Tamsulosin HCl (Flomax) [facility] [place] Stop: 07/01/19 08:59 Last Admin: 06/03/19 08:08 Dose: 0.4 mg Documented by: Venlafaxine HCl (Effexor Extended Release) 75 mg PO QAM [facility] Stop: 07/01/19 08:59 Last Admin: 06/03/19 09:20 Dose: 75 mg Documented by: Venlafaxine HCl (Effexor Extended Release) 150 mg PO QAM [facility] Stop: 07/01/19 08:59 Last Admin: 06/03/19 09:20 Dose: 150 mg Documented by: PG Care Time/CCT Total # of Minutes Spent Total Time Spent with Patient: Total time spent is greater than 50% in coordination of care (as documented) at patient's floor/unit and/or counseling patient: (1) Left lower lobe pneumonia Pneumonia type: due to unspecified organism Qualified Code(s): J18.1 - Lobar pneumonia, unspecified organism
[2019-06-03] MEDS: SIMVASTATIN 40 MG TAB PO SCH (20:58)
[2019-06-04] MEDS: OXYCODONE/ACETAMINOPHEN 10-325 TAB PO PRN ×3 (02:49→20:48)
[2019-06-04] MEDS: HYDROCORTISONE SOD 50 MG in SYRINGE 0 ML IV SCH (06:14)
[2019-06-04] MEDS: PIPERACILLIN/TAZOBACTAM 3.375 GM in DEXTROSE 5% 100 ML IV SCH ×3 (06:25→23:07)
[2019-06-04 07:33] LABS: Eosinophils # (auto) 0.03 K/uL (0-0.5); Eosinophils % (auto) 0.3 %; Hematocrit (blood only) 35.7 % (42-52); Hemoglobin 11.6 g/dL (14.0-18.0); Immature Granulocytes # (auto) 0.13 K/uL (0.00-0.02); Immature Granulocytes % (auto) 1.2 %; Lymphocytes # (auto) 0.98 K/uL (1.2-3.4); Lymphocytes % (auto) 8.8 %; Mean Corpuscular Hemoglobin 31.5 pg (25-34); Mean Corpuscular Hgb Conc 32.5 g/dL (32-36); Mean Platelet Volume 10.1 fL (7.4-10.4); Monocytes # (auto) 0.57 K/uL (0.11-0.59); Monocytes % (auto) 5.1 %; Neutrophils # (auto) 9.49 K/uL (1.4-6.5); Neutrophils % (auto) 84.6 %; Platelet Count 220 K/uL (130-400); RDW Coefficient of Variation 15.7 % (11.5-14.5); RDW Standard Deviation 54.5 fL (36.4-46.3); Red Blood Count 3.68 M/uL (4.7-6.1)
[2019-06-04 08:05] LABS: BUN Creatinine Ratio 12.3 (10-20); Calcium 8.5 mg/dl (8.5-10.1); Creatinine Clr Calc Pharmacy 67.6 ml/min; Est GFR (African American) 65.3; Est GFR (Non-African American) 56.4; Potassium 3.6 mmol/L (3.5-5.1)
[2019-06-04] MEDS: PANTOprazole 40 MG TAB PO SCH ×2 (08:37→20:40)
[2019-06-04] MEDS: ARIPiprazole 5 MG TAB PO SCH (09:01)
[2019-06-04] MEDS: VENLAFAXINE HCL XR 75 MG CAPXR PO SCH (09:02)
[2019-06-04] MEDS: ASPIRIN 81 MG ECTAB PO SCH (09:02)
[2019-06-04] MEDS: FOLIC ACID 1 MG TAB PO SCH ×2 (09:03→20:40)
[2019-06-04] MEDS: TAMSULOSIN HCL 0.4 MG CAP PO SCH (09:03)
[2019-06-04] MEDS: VENLAFAXINE HCL XR 150 MG CAPXR PO SCH (09:03)
[2019-06-04] MEDS: BuPROPion SR 100 MG TABCR PO SCH (09:04)
--- NOTE | 2019-06-04 09:26 | Gastrointestinal Consultation ---
Date of Consultation June 04, 2019 Supervising Physician Co-Signing Physician Notes [address] Segura is being consulted for an abnormal CT of chest during this hospital admission. He is admitted post lithotripsy with a pneumonia on treatment. Currently eating but reports of weight loss and regurgitation post eating, ct chest showing dilated esophagus. Prior drinker/smoker. Not on blood thinners. Would keep him npo after midnite for potential EGD tomorrow. No prior egd's or GI notes in the [facility] system, pcp is a [place] PCP. He appears to respond to PPI per clinical history given today so would continue Protonix [address] Segura will follow him tomorrow. This consult was seen for Dr. Segura. History of Present Illness Reason for Consultation: abnormal CT Attending Physician: Babak Do DO History of Present Illness 73 yo male with temporal arteritis, recent ureteral stone s/p lithotripsy, admitted 05/31/19 for pneumonia. Being treated for pneumonia. Reports of feeling like food comes back up after he eats and weight loss. Underwent CT head yesterday for mental status changes that was negative, CT chest showing dilated espohagus. He reports he has unintentionally lost weight and feels like things come back up after he eats for the past few months. No dysphagia or odynophagia. Prior drinker/smoker. He has never had an EGD that he is aware of, none in the [facility] system. He does not recall being seen by a GI doctor before. He is eating oatmeal, and drinking fluid this morning. He is quite hard of hearing, poor historian. Denies being on blood thinners. Currently on abx. Allergies Allergy/AdvReac Type Severity Reaction Status Date / Time No Known Allergies Allergy Unknown Verified 05/31/19 15:50 Home Medications Home Medications Medication Instructions Recorded Confirmed Type folic acid 1 mg tablet 1 mg PO BID #180 tab 04/10/19 05/31/19 History furosemide 40 mg tablet 40 mg PO BID #180 tab 04/10/19 05/31/19 History methotrexate sodium 2.5 mg tablet 7.5 mg PO .COMPLEX tab 04/10/19 05/31/19 History pantoprazole 40 mg tablet,delayed 40 mg PO BID #60 tab 04/10/19 05/31/19 History release potassium chloride ER 20 mEq 40 meq PO BID #360 tab 04/10/19 05/31/19 History tablet,extended release simvastatin 40 mg tablet 40 mg PO QPM #90 tab 04/10/19 05/31/19 History spironolactone 25 mg tablet 25 mg PO BID #180 tab 04/10/19 05/31/19 History tamsulosin 0.4 mg capsule 0.4 mg PO QAM #90 cap 04/10/19 05/31/19 History venlafaxine ER 150 mg 150 mg PO QAM #90 cap 04/10/19 05/31/19 History capsule,extended release 24 hr venlafaxine ER 75 mg 75 mg PO QAM #90 cap 04/10/19 05/31/19 History capsule,extended release 24 hr hyoscyamine 0.125 mg sublingual 0.125 mg SL Q4H PRN #30 tab 05/11/19 05/31/19 Rx tablet oxycodone-acetaminophen 10 mg-325 1 tab PO Q4H PRN #150 tab 05/12/19 05/31/19 Rx mg tablet aspirin [Aspirin Low Dose] 81 mg PO QAM 05/23/19 05/31/19 History clonazepam 0.5 mg PO BID PRN 05/23/19 05/31/19 History docusate sodium [Stool Softener] 100 mg PO DAILY PRN 05/23/19 05/31/19 History prednisone 2 mg PO QAM 05/23/19 05/31/19 History prednisone 20 mg tablet 60 mg PO DAILY #100 tab 05/23/19 05/31/19 Rx oxycodone-acetaminophen [Percocet] 1 tab PO Q8H PRN #10 tab 05/29/19 05/31/19 Rx aripiprazole 5 mg PO DAILY 05/31/19 05/31/19 History bupropion HCl [Wellbutrin SR] 150 mg PO DAILY 05/31/19 05/31/19 History prednisone 5 mg PO DAILY 05/31/19 05/31/19 History Patient History Medical History Temporal arteritis (Chronic) Anxiety Atrial fibrillation Chronic back pain Chronic obstructive pulmonary disease stopped inhalers Congestive heart failure Degenerative disc disease Depression GERD (gastroesophageal reflux disease) Hyperlipidemia Hypertension Kidney stones On home oxygen therapy 3lpm prn Osteoarthritis Peripheral neuropathy bilateral hands & feet Prostate cancer with radiation Sleep apnea non-compliant with cpap Weight loss, unintentional Surgical History H/O toe surgery History of arthroscopic surgery of shoulder bilateral History of colonoscopy History of nasal septoplasty History of tonsillectomy Hx of shoulder surgery open left shoulder Family History Other Hypertension Social History Preferred Language: Tristanian Communication Ability: Effective 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 Generator Manager Required: No Beliefs That Will Affect Care: None marital status: Single Current Living Situation: Alone Other Information That Helps Us Care for You: No Feels Safe at Home: Yes Safety Concerns: Feels Safe At This Time Smoking Status: Former smoker Tobacco Type: cigarettes ; Do You Dip or Chew Tobacco: No ; Second Hand Exposure: No ; Hx Alcohol Use: No (former heavy drinker) Hx Substance Use: Yes (medicinal medical marijuana - at [facility]) substance use type: former substance user Review of Systems Review of Systems: All systems reviewed & are unremarkable except as noted in HPI & below Physical Exam Physical Exam: Elderly white male in nad Constitutional: Hard of hearing Gastrointestinal (Abdomen): Inspection/Auscultation: no abdominal surgical drain present Obese abdomen, soft nt nd +bs Neurologic: CN's II-XI intact bilaterally Results & Data Vital Signs (Past 12 Hours) Vital Signs Temp Pulse Pulse Resp BP BP Pulse Ox 06/04/19 04:00 36.4 C L 73 16 151/90 H 92 06/04/19 02:13 80 06/04/19 01:09 36.5 C 75 18 147/82 H 90 Labs reviewed WBC 11.20, hgb 11.6, hct 35.7 Na 141/K3.6/CL 107/Co2 Ct head and CT chest reviewed
--- NOTE | 2019-06-04 13:36 | Hospitalist Progress Note ---
Date of Service June 04, 2019 Assessment & Plan (1) Left lower lobe pneumonia: gram negative vs MRSA pneumonia, will treat with Vanco and Zosyn initially blood cultures drawn - no growth stop Vanco as MRSA swab negative WBC markedly elevated at 26k on admission, trending down to 11k today stop IV fluids on 06/02 breathing is stable, normal effort, minimal cough, showing excellent response repeat labs in AM, follow up on cultures plan to use Zosyn while inpatient, change to Augmentin on d/c, complete 7 days total (2) KAYKAY (acute kidney injury): likely due to dehydration, sepsis, recent ureteral calculus and stent received 1L NSS in the ED, treated with NSS at 100cc/hr, fluids now stopped Cr improved to 2.1 from 2.5, suggests that this is all prerenal down further to 1.1 today electrolytes are stable KAYKAY is resolved nephrology signed off (3) Severe sepsis: due to pneumonia no growth on blood or urine cultures repeat lactic acid was trending down appropriately, no need to follow Vanco and Zosyn initially, stop Vanco 06/02 evidence of organ failure with KAYKAY on admission, resolved (4) Esophageal dilatation: h/o poor intake for almost a year describes vomiting and regurgitating a lot of what he eats cannot taste or smell CT chest 06/03 with moderate esophageal dilatation will consult GI to see, anticipate EGD on Wednesday NPO after midnight for EGD tomorrow (5) Elevated troponin: no chest pain, no ischemic EKG changes could be demand ischemia repeat troponin q6 x 2 more sets - trended down this would represent demand cardiac ischemia in setting of severe sepsis, not a primary cardiac event (6) Weight loss: very significant, unintentional appears due to dilatation of esophagus and overall poor oral intake, vomiting no obvious evidence of malignancy on both CT chest and CT abdomen pelvis EGD on Wednesday likely, want to rule out distal esophageal lesion (7) Acute dehydration: no further fluids, well hydrated (8) Temporal arteritis: was on Hydrocortisone 50mg q8 will stop today as it may be contributing to some hallucinations resume Prednisone 5mg daily tomorrow (9) Delirium: hospital delirium, some contribution from Hydrocortisone is possible stop stress dose steroids as he is stable and sepsis resolved frequent re-orientation he is not overly alarmed by the hallucinations will not order Zyprexa or Haldol as he already is on Abilify for mood disorder would not want to risk QT prolongation since the symptoms are mild Subjective patient with some mild delirium today, he is seeing ground hogs on the roof of the hospital when told that others cannot see them he simply says "don't call me crazy" otherwise he is well, he is oriented, understands the plan for EGD tomorrow appreciate GI note, will make patient NPO after midnight reviewed labs, WBC down to 11k, Cr down to 1.25 Review of Systems Review of Systems: All systems reviewed & are unremarkable except as noted in HPI & below Constitutional: no fever, no chills, no sweats, no fatigue and no weakness Respiratory: no cough and no dyspnea Cardiovascular: no chest pain and no edema Gastrointestinal: + nausea and + vomiting; no abdominal pain, no constipation and no diarrhea/loose stools Psychiatric: + visual hallucinations (ground hogs) Physical Exam Constitutional: cooperative and + overweight; no acute distress Eyes: PERRL, conjunctivae normal, anicteric sclerae ENMT: external ear and nose normal, oropharynx normal (dry mucous membranes) Neck: trachea midline, no thyromegaly Respiratory: normal respiratory effort, lungs clear to auscultation Auscultation: + diminished lung sounds (bases) Cardiovascular: RRR, no murmur, no edema Gastrointestinal (Abdomen): normal bowel sounds, soft, nontender, no hepatosplenomegaly Musculoskeletal: no cyanosis or clubbing, extremities motor strength 5/5 Skin: no rashes, warm and dry Neurologic: patellar DTR's 2+ bilat, sensation intact and PERRL, EOMI, accommodation nl, no face palsy, no dysarthria Psychiatric: A+Ox3, euthymic affect Hallucinations: + visual hallucinations (ground hogs on the roof) Lymphatic: no cervical or axillary lymphadenopathy Results & Data Vital Signs (Past 12 Hours) Vital Signs Temp Pulse Pulse Resp BP Pulse Ox 06/04/19 12:25 37.1 C 86 20 144/87 H 92 06/04/19 08:00 36.8 C 78 93 H 18 136/83 94 06/04/19 04:00 36.4 C L 73 16 151/90 H 92 06/04/19 02:13 80 Laboratory Results Laboratory Results - last 24 hr 06/04/19 06/04/19 07:11 07:11 WBC 11.20 H RBC 3.68 L Hgb 11.6 L Hct 35.7 L MCV 97.0 MCH 31.5 MCHC 32.5 RDW Std Deviation 54.5 H RDW Coeff of Melba 15.7 H Plt Count 220 MPV 10.1 Immature Gran % (Auto) 1.2 Neut % (Auto) 84.6 Lymph % (Auto) 8.8 [place] % (Auto) 5.1 Eos % (Auto) 0.3 Baso % (Auto) 0.0 Immature Gran # (Auto) 0.13 H Neut # (Auto) 9.49 H Lymph # (Auto) 0.98 L [place] # (Auto) 0.57 Eos # (Auto) 0.03 Baso # (Auto) 0.00 Sodium 141 Potassium 3.6 Chloride 107 Carbon Dioxide 28 Anion Gap 6.0 BUN 15 Creatinine 1.25 Est Cr Clr Drug Dosing 67.6 Est GFR ( Amer) 65.3 Est GFR (Non-Af Amer) 56.4 BUN/Creatinine Ratio 12.3 Glucose 92 Calcium 8.5 Medications Administered Current Inpatient Medications Acetaminophen (Tylenol) 650 mg PO Q4H PRN PRN Reason: Pain or Fever Stop: 06/30/19 19:41 Aripiprazole (Abilify) 5 mg PO DAILY [facility] Stop: 07/01/19 08:59 Last Admin: 06/04/19 09:01 Dose: 5 mg Documented by: Aspirin (Ecotrin Ectab) 81 mg PO [facility] Stop: 07/01/19 08:59 Last Admin: 06/04/19 09:02 Dose: 81 mg Documented by: Bupropion HCl ([facility]-Sr) [facility] [place] 07/01/19 08:59 Last Admin: 06/04/19 09:04 Dose: 100 mg Documented by: Clonazepam (Klonopin) 0.5 mg PO BID PRN PRN Reason: Anxiety Stop: 06/30/19 19:41 Docusate Sodium (Colace) 100 mg PO DAILY PRN PRN Reason: Constipation Stop: 06/30/19 22:25 Folic Acid (Folvite) 1 mg PO BID [facility] Stop: 06/30/19 20:59 Last Admin: 06/04/19 09:03 Dose: 1 mg Documented by: Heparin Sodium (Porcine) (Heparin Sodium (Porcine)) 5,000 units SQ Q8 [facility] Stop: 06/30/19 21:59 Last Admin: 06/02/19 04:12 Dose: 5,000 units Documented by: Piperacillin Sod/Tazobactam (Sod 3.375 gm/ Dextrose) 115 mls @ 28.75 mls/hr IV Q8H [facility]; Protocol Stop: 06/07/19 22:59 Last Infusion: 06/04/19 10:09 Dose: Infused Documented by: Ioversol (Optiray 320 100ml) 91 ml IV ONCE PRN PRN Reason: Interaction Checking Stop: 06/07/19 10:38 Last Admin: 06/03/19 10:40 Dose: 91 ml Documented by: Miscellaneous Information (Consult) 1 ea N/A UD PRN PRN Reason: Consult Stop: 06/30/19 20:35 Ondansetron HCl (Zofran) 4 mg IV Q6H PRN PRN Reason: Nausea Stop: 06/30/19 19:41 Last Admin: 06/01/19 08:09 Dose: 4 mg Documented by: Oxycodone/Acetaminophen (Percocet 10/325mg) 1 tab PO Q4H PRN PRN Reason: pain Stop: 06/14/19 22:25 Last Admin: 06/04/19 10:11 Dose: 1 tab Documented by: Pantoprazole Sodium (Protonix) 40 mg PO BID [facility] Stop: 06/30/19 20:59 Last Admin: 06/04/19 08:37 Dose: 40 mg Documented by: Simvastatin (Zocor) 40 mg PO QPM [facility] Stop: 06/30/19 20:59 Last Admin: 06/03/19 20:58 Dose: 40 mg Documented by: Tamsulosin HCl (Flomax) 0.[facility] [place]: 07/01/19 08:59 Last Admin: 06/04/19 09:03 Dose: 0.4 mg Documented by: Venlafaxine HCl (Effexor Extended Release) 75 mg PO QAM [facility] Stop: 07/01/19 08:59 Last Admin: 06/04/19 09:02 Dose: 75 mg Documented by: Venlafaxine HCl (Effexor Extended Release) [facility] [place]: 07/01/19 08:59 Last Admin: 06/04/19 09:03 Dose: 150 mg Documented by: PG Care Time/CCT Total # of Minutes Spent Total Time Spent with Patient: Total time spent is greater than 50% in c oordination of care (as documented) at patient's floor/unit and/or counseling patient: (1) Left lower lobe pneumonia Pneumonia type: due to unspecified organism Qualified Code(s): J18.1 - Lobar pneumonia, unspecified organism
[2019-06-04] MEDS: SIMVASTATIN 40 MG TAB PO SCH (20:40)
[2019-06-05] MEDS: ONDANSETRON INJ 2 MG/ML 2 ML VIAL IV PRN (04:36)
[2019-06-05] MEDS ORDERED: MoRPHine SULFATE 2 MG/ML CARP IV STA (04:53)
[2019-06-05] MEDS ORDERED: ACETAMINOPHEN 65 ML IV ONE (04:55)
[2019-06-05] MEDS ORDERED: FAMOTIDINE 20MG/5ML IV PUSH IV STA (04:56)
[2019-06-05] MEDS ORDERED: FAMOTIDINE 20 MG in SYRINGE 3 ML IV ONE (05:00)
[2019-06-05] MEDS: PIPERACILLIN/TAZOBACTAM 3.375 GM in DEXTROSE 5% 100 ML IV SCH ×3 (06:09→22:51)
[2019-06-05 07:20] LABS: Hematocrit (blood only) 35.6 % (42-52); Mean Corpuscular Hemoglobin 32.3 pg (25-34); Mean Corpuscular Hgb Conc 33.7 g/dL (32-36); Mean Corpuscular Volume 95.7 fL (80-100); Platelet Count 229 K/uL (130-400); RDW Coefficient of Variation 15.9 % (11.5-14.5); RDW Standard Deviation 54.2 fL (36.4-46.3); Red Blood Count 3.72 M/uL (4.7-6.1); White Blood Count 12.13 K/uL (4.8-10.8)
[2019-06-05 07:23] LABS: Basophils # (auto) 0.02 K/uL (0-0.2); Basophils % (auto) 0.2 %; Eosinophils # (auto) 0.24 K/uL (0-0.5); Immature Granulocytes # (auto) 0.23 K/uL (0.00-0.02); Immature Granulocytes % (auto) 1.9 %; Lymphocytes # (auto) 0.86 K/uL (1.2-3.4); Lymphocytes % (auto) 7.1 %; Monocytes # (auto) 1.32 K/uL (0.11-0.59); Monocytes % (auto) 10.9 %; Neutrophils # (auto) 9.46 K/uL (1.4-6.5); Neutrophils % (auto) 77.9 %; Platelet Estimate Normal (Normal)
[2019-06-05 07:27] LABS: Calcium 8.4 mg/dl (8.5-10.1); Creatinine Clr Calc Pharmacy 58.8 ml/min; Est GFR (African American) 55.1; Est GFR (Non-African American) 47.5
[2019-06-05] MEDS: POTASSIUM CHLORIDE / WTR 10 MEQ/100 ML PLCT IV SCH ×4 (08:34→11:44)
--- NOTE | 2019-06-05 10:23 | Gastrointestinal Consultation ---
Date of Consultation June 05, 2019 History of Present Illness Attending Physician: Zakia Ratliff MD Allergies Allergy/AdvReac Type Severity Reaction Status Date / Time No Known Allergies Allergy Unknown Verified 05/31/19 15:50 Home Medications Home Medications Medication Instructions Recorded Confirmed Type folic acid 1 mg tablet 1 mg PO BID #180 tab 04/10/19 05/31/19 History furosemide 40 mg tablet 40 mg PO BID #180 tab 04/10/19 05/31/19 History methotrexate sodium 2.5 mg tablet 7.5 mg PO .COMPLEX tab 04/10/19 05/31/19 History pantoprazole 40 mg tablet,delayed 40 mg PO BID #60 tab 04/10/19 05/31/19 History release potassium chloride ER 20 mEq 40 meq PO BID #360 tab 04/10/19 05/31/19 History tablet,extended release simvastatin 40 mg tablet 40 mg PO QPM #90 tab 04/10/19 05/31/19 History spironolactone 25 mg tablet 25 mg PO BID #180 tab 04/10/19 05/31/19 History tamsulosin 0.4 mg capsule 0.4 mg PO QAM #90 cap 04/10/19 05/31/19 History venlafaxine ER 150 mg 150 mg PO QAM #90 cap 04/10/19 05/31/19 History capsule,extended release 24 hr venlafaxine ER 75 mg 75 mg PO QAM #90 cap 04/10/19 05/31/19 History capsule,extended release 24 hr hyoscyamine 0.125 mg sublingual 0.125 mg SL Q4H PRN #30 tab 05/11/19 05/31/19 Rx tablet oxycodone-acetaminophen 10 mg-325 1 tab PO Q4H PRN #150 tab 05/12/19 05/31/19 Rx mg tablet aspirin [Aspirin Low Dose] 81 mg PO QAM 05/23/19 05/31/19 History clonazepam 0.5 mg PO BID PRN 05/23/19 05/31/19 History docusate sodium [Stool Softener] 100 mg PO DAILY PRN 05/23/19 05/31/19 History prednisone 2 mg PO QAM 05/23/19 05/31/19 History prednisone 20 mg tablet 60 mg PO DAILY #100 tab 05/23/19 05/31/19 Rx oxycodone-acetaminophen [Percocet] 1 tab PO Q8H PRN #10 tab 05/29/19 05/31/19 Rx aripiprazole 5 mg PO DAILY 05/31/19 05/31/19 History bupropion HCl [Wellbutrin SR] 150 mg PO DAILY 05/31/19 05/31/19 History prednisone 5 mg PO DAILY 05/31/19 05/31/19 History Patient History Medical History Temporal arteritis (Chronic) Anxiety Atrial fibrillation Chronic back pain Chronic obstructive pulmonary disease stopped inhalers Congestive heart failure Degenerative disc disease Depression GERD (gastroesophageal reflux disease) Hyperlipidemia Hypertension Kidney stones On home oxygen therapy 3lpm prn Osteoarthritis Peripheral neuropathy bilateral hands & feet Prostate cancer with radiation Sleep apnea non-compliant with cpap Weight loss, unintentional Surgical History H/O toe surgery History of arthroscopic surgery of shoulder bilateral History of colonoscopy History of nasal septoplasty History of tonsillectomy Hx of shoulder surgery open left shoulder Family History Other Hypertension Social History Preferred Language: Senegalese Communication Ability: Effective 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 Required: No Beliefs That Will Affect Care: None marital status: Single Current Living Situation: Alone Other Information That Helps Us Care for You: No Feels Safe at Home: Yes Safety Concerns: Feels Safe At This Time Smoking Status: Former smoker Tobacco Type: cigarettes ; Do You Dip or Chew Tobacco: No ; Second Hand Exposure: No ; Hx Alcohol Use: No (former heavy drinker) Hx Substance Use: Yes (medicinal medical marijuana - at HS) substance use type: former substance user Results & Data Vital Signs (Past 12 Hours) Vital Signs Temp Pulse Pulse Resp BP BP Pulse Ox 06/05/19 07:29 36.7 C 103 H 16 157/77 H 91 06/05/19 07:14 97 H 06/05/19 03:21 36.4 C L 90 19 142/81 H 91 06/04/19 23:45 70 06/04/19 23:02 36.5 C 21 132/79 93 PG Care Time/CCT Total # of Minutes Spent Total Time Spent with Patient: Total time spent is greater than 50% in coordination of care (as documented) at patient's floor/unit and/or counseling patient:
--- NOTE | 2019-06-05 10:25 | History & Physical Bridge Note ---
Date of Service June 05, 2019 History & Physical Bridge Note I have examined the patient, reviewed the History & Physical and in the interval since the performance of the History & Physical I have noted the following changes of clinical significance: no changes noted since consultation with Dr. Ryan. Keep NPO. Proceed with EGD today. Of note, patient has a history of severe dysmotility which could also be contributing to the abnormal CT of the esophagus. He has been taking NSAIDs every 6 hours as well. Supervising Physician Co-Signing Physician Notes Agree with PAYTON Yadav Abd: Soft, NT, ND, +BS Continue current therapy EGD today
--- NOTE | 2019-06-05 11:20 | Family Medicine Progress Note ---
Date of Service June 05, 2019 Assessment & Plan (1) Left lower lobe pneumonia: Patient is a 73 year old male with recent right 10mm ureteral stone s/p stent and lithotripsy who returned 2 days after the procedure secondary to weakness, chills, poor oral intake, and general malaise. Left Lower Lobe Pneumonia -Concern for Gram Neg vs MRSA pneumonia and initially started on Vancomycin and Zosyn. -Vancomycin stopped as MRSA swab was negative. -Blood cultures showed no growth. -WBC 12.13 today, mildly elevated from 11.20 yesterday. -Plan for Zosyn while inpatient changing to Augmentin on d/c for complete 7 days total. -Currently Zosyn day 12/20. -Will draw and monitor labs in the AM -Currently breathing well and stable at 94% on room air. -PT/OT ordered today. KAYKAY -Likely due to dehydration, sepsis, recent ureteral calculus and stent -Received 1L NSS in the ED, treated with NSS at 100cc/hr which have since been stopped. -Cr 1.44 today, elevated from 1.25 yesterday, but overall improved since admission 2.5 -Patient noting marked improvement of hematuria today. -Nephrology signed off at this point in time. Hypokalemia -Potassium 3.1 this AM reduced from 3.6 yesterday. -40meq K-rider IV ordered since patient notes difficulty swallowing currently. -Will reevaluate in the AM. Wide complex tachycardia -Patient was noted to have 11 beats of V-Tach on web application tester at 19:32 on 06/04/19. -Patient denies noting any changes in their heartbeat or chest pain when questioned. -Will continue to monitor. Severe Sepsis -Likely due to pneumonia - resolving. -Evidence of organ failure with KAYKAY on admission, Esophageal Dilation -h/o poor intake for almost a year -describes vomiting and regurgitating a lot of what he eats -cannot taste or smell -CT chest 06/03 showed moderate esophageal dilatation -GI consulted -EGD today was negative for concerning etiology -Recommend resume previous diet, continue present medications, and consider formal motility study as outpatient. Elevated Troponin -no chest pain, no ischemic EKG changes -Likely 2/2 demand ischemia in the setting of severe sepsis. -repeat troponin q6 x 2 more sets - trended down Weight Loss -Noted unintentional weight loss of >100lbs to admitting team. -Likely secondary to poor oral intake and vomiting -No obvious evidence of malignancy noted on both CT chest and CT abdomen/pelvis. -EGD today ruled out distal esophageal lesion. Acute Dehydration -resolved Temporal Arteritis -was on Hydrocortisone 50mg q8, stopped due to concern it may have contributed to hallucinations. -Prednisone 5mg QD resumed today, will monitor patients mental status. Delirium -Likely hospital delirium with ?contribution from Hydrocortisone. -Pt not overly alarmed by hallucinations. -Currently stable and states he is "not hallucinating" but that he mistook what he saw outside of his window for something out. -Will continue to monitor patient, especially with resuming prednisone. FEN/GI - Regular DVT - Heparin Code - Full Dispo - Med/Surg w/ Tele (2) KAYKAY (acute kidney injury): (3) Severe sepsis: (4) Esophageal dilatation: (5) Elevated troponin: (6) Weight loss: (7) Acute dehydration: (8) Temporal arteritis: (9) Delirium: (10) Hypokalemia: (11) Arrhythmia: Supervising Physician Co-Signing Physician Notes Resident Physician Supervision Note: I independently interviewed and examined the patient and verified the alvarez history and physical, reviewed labs and image studies, discussed the case with the resident Dr. Sun and agree with the findings and care plan. Subjective Patient seen and examined this AM at the bedside. He noted that he was feeling fairly well this AM and that he was excited today was the first time in over a week that he has had urination with minimal hematuria. He does note that he is having abdominal LRQ pain that comes and goes which he states is a 3/10 sharp pain at rest and 7/10 upon palpation. He denies any difficulties breathing including dyspnea, orthopnea, or dyspnea on exertion. Review of Systems Constitutional: no fever and no chills Eyes: no photophobia and no worsening vision Respiratory: no cough, no dyspnea, no dyspnea on exertion, no pain on inspiration and no wheezing Cardiovascular: no chest pain, no dyspnea, no dyspnea on exertion, no palpitations and no edema Gastrointestinal: + abdominal pain (LRQ 3/10 sharp, 7/10 on palpation); no vomiting, no constipation and no diarrhea/loose stools Genitourinary: + urinary frequency and + hematuria; no dysuria Musculoskeletal: no back pain Physical Exam Constitutional: WD/WN, vitals as above well developed, well nourished, cooperative and + overweight; no acute distress and not ill appearing Eyes: PERRL, conjunctivae normal, anicteric sclerae no nystagmus Neck: trachea midline, no thyromegaly normal visual inspection and trachea midline Respiratory: normal respiratory effort; no respiratory distress, no cough, not tachypneic and no audible wheezes Auscultation: lungs clear to auscultation bilaterally and + diminished lung sounds (bases); no crackles, no rales and no wheezes Cardiovascular: RRR, no murmur, no edema Rate/Rhythm: regular rate and regular rhythm Vessels: no JVD Gastrointestinal (Abdomen): Inspection/Auscultation: abdomen normal to inspection and normal bowel sounds; abdomen not distended Percussion/Palpation: + abdomen tender (TTP in lower R quadrant) and abdomen soft Genitourinary: no CVA tenderness Lymphatic: no cervical or axillary lymphadenopathy no lymphadenopathy and no lymphedema Results & Data Vital Signs (Past 12 Hours) Vital Signs Temp Pulse Pulse Resp BP BP Pulse Ox 06/05/19 07:29 36.7 C 103 H 16 157/77 H 91 06/05/19 07:14 97 H 06/05/19 03:21 36.4 C L 90 19 142/81 H 91 06/04/19 23:45 70 Laboratory Results Abnormal lab results 06/05/19 06/05/19 06/05/19 Range/Units 06:18 06:18 07:33 WBC 12.13 H (4.8-10.8) K/uL RBC 3.72 L (4.7-6.1) M/uL Hgb 12.0 L (14.0-18.0) g/dL Hct 35.6 L (42-52) % RDW Std Deviation 54.2 H (36.4-46.3) fL RDW Coeff of Melba 15.9 H (11.5-14.5) % MPV 11.0 H (7.4-10.4) fL Immature Gran # (Auto) 0.23 H (0.00-0.02) K/uL Neut # (Auto) 9.46 H (1.4-6.5) K/uL Lymph # (Auto) 0.86 L (1.2-3.4) K/uL Terrell # (Auto) 1.32 H (0.11-0.59) K/uL Potassium 3.1 L (3.5-5.1) mmol/L Creatinine 1.44 H (0.6-1.4) mg/dl BUN/Creatinine Ratio 9.0 L (10-20) Calcium 8.4 L (8.5-10.1) mg/dl Medications Administered Current Inpatient Medications Acetaminophen (Tylenol) 650 mg PO Q4H PRN PRN Reason: Pain or Fever Stop: 06/30/19 19:41 Aripiprazole (Abilify) 5 mg PO DAILY [facility] Stop: 07/01/19 08:59 Last Admin: 06/05/19 14:44 Dose: 5 mg Documented by: Aspirin (Ecotrin Ectab) 81 mg PO QAM [facility] Stop: 07/01/19 08:59 Last Admin: 06/05/19 14:44 Dose: 81 mg Documented by: Bupropion HCl (Wellbutrin-Sr) 100 mg PO QAM [facility] Stop: 07/01/19 08:59 Last Admin: 06/05/19 14:44 Dose: 100 mg Documented by: Clonazepam (Klonopin) 0.5 mg PO BID PRN PRN Reason: Anxiety Stop: 06/30/19 19:41 Docusate Sodium (Colace) 100 mg PO DAILY PRN PRN Reason: Constipation Stop: 06/30/19 22:25 Folic Acid (Folvite) 1 mg PO BID [facility] Stop: 06/30/19 20:59 Last Admin: 06/05/19 12:11 Dose: Not Given Documented by: Heparin Sodium (Porcine) (Heparin Sodium (Porcine)) 5,000 units SQ Q8 [facility] Stop: 06/30/19 21:59 Last Admin: 06/02/19 04:12 Dose: 5,000 units Documented by: Piperacillin Sod/Tazobactam (Sod 3.375 gm/ Dextrose) 115 mls @ 28.75 mls/hr IV Q8H [facility]; Protocol Stop: 06/07/19 22:59 Last Infusion: 06/05/19 10:09 Dose: Infused Documented by: Ioversol (Optiray 320 100ml) 91 ml IV ONCE PRN PRN Reason: Interaction Checking Stop: 06/07/19 10:38 Last Admin: 06/03/19 10:40 Dose: 91 ml Documented by: Miscellaneous Information (Consult) 1 ea N/A UD PRN PRN Reason: Consult Stop: 06/30/19 20:35 Ondansetron HCl (Zofran) 4 mg IV Q6H PRN PRN Reason: Nausea Stop: 06/30/19 19:41 Last Admin: 06/05/19 04:36 Dose: 4 mg Documented by: Oxycodone/Acetaminophen (Percocet 10/325mg) 1 tab PO Q4H PRN PRN Reason: pain Stop: 06/14/19 22:25 Last Admin: 06/05/19 14:43 Dose: 1 tab Documented by: Pantoprazole Sodium (Protonix) 40 mg PO BID [facility] Stop: 06/30/19 20:59 Last Admin: 06/05/19 14:43 Dose: 40 mg Documented by: Prednisone (Prednisone) 5 mg PO DAILY [facility] Stop: 07/05/19 13:59 Last Admin: 06/05/19 14:45 Dose: 5 mg Documented by: Simvastatin (Zocor) 40 mg PO QPM [facility] Stop: 06/30/19 20:59 Last Admin: 06/04/19 20:40 Dose: 40 mg Documented by: Tamsulosin HCl (Flomax) 0.4 mg PO QAM [facility] Stop: 07/01/19 08:59 Last Admin: 06/05/19 14:44 Dose: 0.4 mg Documented by: Venlafaxine HCl (Effexor Extended Release) 75 mg PO QAM [facility] Stop: 07/01/19 08:59 Last Admin: 06/05/19 14:43 Dose: 75 mg Documented by: Venlafaxine HCl (Effexor Extended Release) 150 mg PO QAM [facility] Stop: 07/01/19 08:59 Last Admin: 06/05/19 14:43 Dose: 150 mg Documented by: PG Care Time/CCT Total # of Minutes Spent Total Time Spent with Patient: Total time spent is greater than 50% in coordination of care (as documented) at patient's floor/unit and/or counseling patient: Resident Activity Tracking Resident Involvement: Resident Care Provided Care Provided: Adult Hospital Medicine (1) Left lower lobe pneumonia Pneumonia type: due to unspecified organism Qualified Code(s): J18.1 - Lobar pneumonia, unspecified organism
[2019-06-05] MEDS: FOLIC ACID 1 MG TAB PO SCH ×2 (12:11→20:11)
--- NOTE | 2019-06-05 13:04 | Anesthesiology Consultation ---
Date of Service June 05, 2019 Assessment & Plan Chart Review Chart Review: Acceptable Risk for Surgery Consults Requested none History Surgery Operation Date: 06/05/19 09:55 Proposed Procedures p Esophagogastroduodenoscopy Dr Segura - Mitchell Jennings Case, DO Height/Weight Height: 6 ft 1 in Weight: 111.2 kg Allergies Allergy/AdvReac Type Severity Reaction Status Date / Time No Known Allergies Allergy Unknown Verified 05/31/19 15:50 Medications Home Medications Medication Instructions Recorded Confirmed Last Taken folic acid 1 mg tablet 1 mg PO BID #180 tab 04/10/19 05/31/19 Unknown furosemide 40 mg tablet 40 mg PO BID #180 tab 04/10/19 05/31/19 Unknown methotrexate sodium 2.5 mg tablet 7.5 mg PO .COMPLEX tab 04/10/19 05/31/19 U nknown pantoprazole 40 mg tablet,delayed 40 mg PO BID #60 tab 04/10/19 05/31/19 Unknown release potassium chloride ER 20 mEq 40 meq PO BID #360 tab 04/10/19 05/31/19 Unknown tablet,extended release simvastatin 40 mg tablet 40 mg PO QPM #90 tab 04/10/19 05/31/19 Unknown spironolactone 25 mg tablet 25 mg PO BID #180 tab 04/10/19 05/31/19 Unknown tamsulosin 0.4 mg capsule 0.4 mg PO QAM #90 cap 04/10/19 05/31/19 Unknown venlafaxine ER 150 mg 150 mg PO QAM #90 cap 04/10/19 05/31/19 Unknown capsule,extended release 24 hr venlafaxine ER 75 mg 75 mg PO QAM #90 cap 04/10/19 05/31/19 Unknown capsule,extended release 24 hr hyoscyamine 0.125 mg sublingual 0.125 mg SL Q4H PRN #30 tab 05/11/19 05/31/19 Unknown tablet oxycodone-acetaminophen 10 mg-325 1 tab PO Q4H PRN #150 tab 05/12/19 05/31/19 Unknown mg tablet aspirin [Aspirin Low Dose] 81 mg PO QAM 05/23/19 05/31/19 Unknown clonazepam 0.5 mg PO BID PRN 05/23/19 05/31/19 Unknown docusate sodium [Stool Softener] 100 mg PO DAILY PRN 05/23/19 05/31/19 Unknown prednisone 2 mg PO QAM 05/23/19 05/31/19 Unknown prednisone 20 mg tablet 60 mg PO DAILY #100 tab 05/23/19 05/31/19 Unknown oxycodone-acetaminophen [Percocet] 1 tab PO Q8H PRN #10 tab 05/29/19 05/31/19 Unknown aripiprazole 5 mg PO DAILY 05/31/19 05/31/19 Unknown bupropion HCl [Wellbutrin SR] 150 mg PO DAILY 05/31/19 05/31/19 Unknown prednisone 5 mg PO DAILY 05/31/19 05/31/19 Unknown Active Medications Generic Name Dose Route Start Last Admin Trade Name Freq PRN Reason Stop Dose Admin Aripiprazole 5 mg 06/01/19 09:00 06/04/19 09:01 Abilify PO 07/01/19 08:59 5 mg DAILY [facility] Administration Aspirin 81 mg 06/01/19 09:00 06/04/19 09:02 Ecotrin Ectab PO 07/01/19 08:59 81 mg QAM [facility] Administration Bupropion HCl 100 mg 06/01/19 09:00 06/04/19 09:04 Wellbutrin-Sr PO 07/01/19 08:59 100 mg QAM [facility] Administration Folic Acid 1 mg 05/31/19 21:00 06/05/19 12:11 Folvite PO 06/30/19 20:59 Not Given BID [facility] Heparin Sodium (Porcine) 5,000 units 05/31/19 22:00 06/02/19 04:12 Heparin Sodium (Porcine) SQ 06/30/19 21:59 5,000 units Q8 [facility] Administration Piperacillin Sod/Tazobactam 115 mls @ 28.75 mls/hr 05/31/19 23:00 06/05/19 10:09 Sod 3.375 gm/ Dextrose IV 06/07/19 22:59 Infused Q8H [facility] Infusion Protocol Ioversol 91 ml 06/03/19 10:39 06/03/19 10:40 Optiray 320 100ml IV 06/07/19 10:38 91 ml ONCE PRN Administration Interaction Checking Ondansetron HCl 4 mg 05/31/19 19:42 06/05/19 04:36 Zofran IV 06/30/19 19:41 4 mg Q6H PRN Administration Nausea Oxycodone/Acetaminophen 1 tab 05/31/19 22:26 06/04/19 20:48 Percocet 10/325mg PO 06/14/19 22:25 1 tab Q4H PRN Administration pain Pantoprazole Sodium 40 mg 05/31/19 21:00 06/04/19 20:40 Protonix PO 06/30/19 20:59 40 mg BID [facility] Administration Simvastatin 40 mg 05/31/19 21:00 06/04/19 20:40 Zocor PO 06/30/19 20:59 40 mg QPM [facility] Administration Tamsulosin HCl 0.4 mg 06/01/19 09:00 06/04/19 09:03 Flomax PO 07/01/19 08:59 0.4 mg QAM [facility] Administration Venlafaxine HCl 75 mg 06/01/19 09:00 06/04/19 09:02 Effexor Extended Release PO 07/01/19 08:59 75 mg QAM [facility] Administration Venlafaxine HCl 150 mg 06/01/19 09:00 06/04/19 09:03 Effexor Extended Release PO 07/01/19 08:59 150 mg QAM [facility] Administration NPO Date Last Intake of Fluids: 06/04/19 Time Last Intake of Fluids: 23:55 Date Last Intake of Solids: 06/05/19 Time Last Intake of Solids: 19:00 Past Medical History Medical History Temporal arteritis (Chronic) Anxiety Atrial fibrillation Chronic back pain Chronic obstructive pulmonary disease stopped inhalers Congestive heart failure Degenerative disc disease Depression GERD (gastroesophageal reflux disease) Hyperlipidemia Hypertension Kidney stones On home oxygen therapy 3lpm prn Osteoarthritis Peripheral neuropathy bilateral hands & feet Prostate cancer with radiation Sleep apnea non-compliant with cpap Weight loss, unintentional Past Family History Family History Other Hypertension Past Surgical History Surgical History H/O toe surgery History of arthroscopic surgery of shoulder bilateral History of colonoscopy History of nasal septoplasty History of tonsillectomy Hx of shoulder surgery open left shoulder Social History Smoking Status: Former smoker tobacco type: cigarettes Do You Dip or Chew Tobacco: No Hx Alcohol Use: No (former heavy drinker) Alcohol type: beer Hx Substance Use: Yes (medicinal medical marijuana - at HS) substance use type: former substance user Physical Exam Vital Signs Last Vital Signs Temp 36.6 C 06/05/19 12:53 Pulse 83 06/05/19 12:53 Resp 20 06/05/19 12:53 BP 157/85 H 06/05/19 12:53 Pulse Ox 93 06/05/19 12:53 Testing Laboratory Results 06/05/19 06:18 06/05/19 07:33 Urine Color [place] 05/31/19 16:40 Urine Appearance Cloudy (Clear) A 05/31/19 16:40 Urine pH 5.0 (4.5-7.5) 05/31/19 16:40 Ur Specific [place] 1.019 (1.000-1.030) 05/31/19 16:40 Urine Protein 1+ (Negative) H 05/31/19 16:40 Urine Glucose (UA) Negative (Negative) 05/31/19 16:40 Urine Ketones Negative (Negative) 05/31/19 16:40 Urine Nitrite Negative (Negative) 05/31/19 16:40 Ur Leukocyte Esterase 2+ (Negative) H 05/31/19 16:40 Urine WBC (Auto) 10-30 /hpf (0-5) H 05/31/19 16:40 Urine RBC (Auto) >30 /hpf (0-4) H 05/31/19 16:40 U Hyaline Cast (Auto) 5-10 /lpf (0-5) H 05/31/19 16:40 U Epithel Cells (Auto) >30 /lpf (0-5) H 05/31/19 16:40 Urine Bacteria (Auto) Negative (Negative) 05/31/19 16:40 05/31/19 18:04 Aerobic Blood Culture - Preliminary Blood No growth in Aerobic bottle after 48 hours. Anaerobic Blood Culture - Final 05/31/19 18:13 Aerobic Blood Culture - Preliminary Blood No growth in Aerobic bottle after 48 hours. Anaerobic Blood Culture - Preliminary No growth in Anaerobic bottle after 48 hours. 05/31/19 16:40 Urine Culture - Final Urine,Clean Catch No growth - less than 1,000 colonies/mL.
[2019-06-05] MEDS ORDERED: PROPOFOL IV EMULSION 10 MG/ML 20 ML VIAL IV ONE (14:02)
[2019-06-05] MEDS ORDERED: LIDOCAINE HCL 2% 2 ML VIAL/AMP(20MG/ML) INFIL ONE (14:02)
--- NOTE | 2019-06-05 14:04 | Anesthesiology Progress Note ---
Date of Service June 05, 2019 Anesthesia Post Procedure Vital Signs Vital Signs: Temp Pulse Pulse Resp BP BP Pulse Ox 06/05/19 12:53 36.6 C 83 20 157/85 H 93 06/05/19 11:53 37.1 C 92 H 16 156/82 H 90 06/05/19 07:29 36.7 C 103 H 16 157/77 H 91 06/05/19 07:14 97 H 06/05/19 03:21 36.4 C L 90 19 142/81 H 91 06/04/19 23:45 70 06/04/19 23:02 36.5 C 21 132/79 93 06/04/19 20:02 36.7 C 79 18 129/83 91 06/04/19 19:00 06/04/19 16:03 36.3 C L 78 18 161/88 H 94 06/04/19 15:58 72 Pulse Ox 06/05/19 12:53 06/05/19 11:53 06/05/19 07:29 06/05/19 07:14 06/05/19 03:21 06/04/19 23:45 06/04/19 23:02 06/04/19 20:02 06/04/19 19:00 91 06/04/19 16:03 06/04/19 15:58 Pain Intensity Abdomen: Pain Intensity: 10 Lower Back: Pain Intensity: 5 Transfer of Care Handoff Completed per policy Notes Mental Status: alert / awake / arousable and participated in evaluation Patient Amnestic to Procedure: Yes Nausea / Vomiting: adequately controlled Pain: adequately controlled Airway Patency, RR, SpO2: stable & adequate BP & HR: stable & adequate Hydration State: stable & adequate Anesthetic Complications: no major complications apparent
--- NOTE | 2019-06-05 14:17 | GI REPORT ---
Patient Name: Gio Juarez Procedure Date: 06/05/2019 1:40 PM Date of : 1945 Admit Type: Inpatient Age: 73 Gender: Male Attending MD: Mitchell Segura DO Procedure: Upper GI endoscopy Providers: Mitchell Segura DO Referring MD: Zakia Ratliff Indications: Abnormal CT of the GI tract, Weight loss Medicines: Monitored Anesthesia Care Complications: No immediate complications. Estimated Blood Loss: Estimated blood loss: none. Procedure: Pre-Anesthesia Assessment: - Prior to the procedure, a History and Physical was performed, and patient medications and allergies were reviewed. The patient's tolerance of previous anesthesia was also reviewed. The risks and benefits of the procedure and the sedation options and risks were discussed with the patient. All questions were answered, and informed consent was obtained. Prior Anticoagulants: The patient has taken aspirin, last dose was 5 days prior to procedure. ASA Grade Assessment: IV - A patient with severe systemic disease that is a constant threat to life. After reviewing the risks and benefits, the patient was deemed in satisfactory condition to undergo the procedure. After obtaining informed consent, the endoscope was passed under direct vision. Throughout the procedure, the patient's blood pressure, pulse, and oxygen saturations were monitored continuously. The Endoscope was introduced through the mouth, and advanced to the second part of duodenum. The upper GI endoscopy was accomplished without difficulty. The patient tolerated the procedure well. Findings: No appreciable esophageal motility was noted. In addition, a hypertonic lower esophageal sphincter was found. There was moderate resistance to endoscope advancement into the stomach. The Z-line was regular. The gastroesophageal junction and cardia were normal on retroflexed view. The stomach was normal. The examined duodenum was normal. Impression: - Esophageal motility disorder. - Normal stomach. - Normal examined duodenum. - No specimens collected. Recommendation: - Return patient to [facility] for ongoing care. - Resume previous diet. - Continue present medications. - Consider formal motility study as outpatient. Mitchell Segura DO 06/05/2019 2:16:34 PM This report has been signed electronically. Note Initiated On: 06/05/2019 1:40 PM Number of Addenda: 0 I attest to the content of the Intraoperative Record and orders documented therein, exceptions below {[id number]}
[2019-06-05] MEDS: VENLAFAXINE HCL XR 75 MG CAPXR PO SCH (14:43)
[2019-06-05] MEDS: PANTOprazole 40 MG TAB PO SCH ×2 (14:43→20:10)
[2019-06-05] MEDS: OXYCODONE/ACETAMINOPHEN 10-325 TAB PO PRN ×3 (14:43→22:51)
[2019-06-05] MEDS: VENLAFAXINE HCL XR 150 MG CAPXR PO SCH (14:43)
[2019-06-05] MEDS: ASPIRIN 81 MG ECTAB PO SCH (14:44)
[2019-06-05] MEDS: TAMSULOSIN HCL 0.4 MG CAP PO SCH (14:44)
[2019-06-05] MEDS: BuPROPion SR 100 MG TABCR PO SCH (14:44)
[2019-06-05] MEDS: ARIPiprazole 5 MG TAB PO SCH (14:44)
[2019-06-05] MEDS: predniSONE 5 MG TAB PO SCH (14:45)
[2019-06-05] MEDS: SIMVASTATIN 40 MG TAB PO SCH (20:11)
[2019-06-05] MEDS: HEPARIN SOD 5,000 UNIT/0.5 ML VIAL SQ SCH (23:25)
[2019-06-06] MEDS: OXYCODONE/ACETAMINOPHEN 10-325 TAB PO PRN ×4 (04:11→22:09)
[2019-06-06] MEDS: HEPARIN SOD 5,000 UNIT/0.5 ML VIAL SQ SCH ×3 (06:20→20:26)
[2019-06-06] MEDS: PIPERACILLIN/TAZOBACTAM 3.375 GM in DEXTROSE 5% 100 ML IV SCH ×3 (06:25→22:09)
[2019-06-06 07:48] LABS: Basophils # (auto) 0.02 K/uL (0-0.2); Basophils % (auto) 0.2 %; Eosinophils # (auto) 0.36 K/uL (0-0.5); Eosinophils % (auto) 3.4 %; Hematocrit (blood only) 35.9 % (42-52); Hemoglobin 11.7 g/dL (14.0-18.0); Immature Granulocytes # (auto) 0.18 K/uL (0.00-0.02); Immature Granulocytes % (auto) 1.7 %; Lymphocytes # (auto) 0.79 K/uL (1.2-3.4); Lymphocytes % (auto) 7.4 %; Mean Corpuscular Hemoglobin 31.8 pg (25-34); Mean Corpuscular Hgb Conc 32.6 g/dL (32-36); Mean Corpuscular Volume 97.6 fL (80-100); Mean Platelet Volume 10.4 fL (7.4-10.4); Monocytes # (auto) 1.12 K/uL (0.11-0.59); Monocytes % (auto) 10.5 %; Neutrophils # (auto) 8.22 K/uL (1.4-6.5); Neutrophils % (auto) 76.8 %; Platelet Count 230 K/uL (130-400); RDW Coefficient of Variation 16.3 % (11.5-14.5); RDW Standard Deviation 57.5 fL (36.4-46.3); Red Blood Count 3.68 M/uL (4.7-6.1); White Blood Count 10.69 K/uL (4.8-10.8)
[2019-06-06 08:23] LABS: Albumin Level 2.5 gm/dl (3.4-5.0); BUN Creatinine Ratio 8.3 (10-20); Calcium 8.4 mg/dl (8.5-10.1); Creatinine Clr Calc Pharmacy 67.1 ml/min; Est GFR (African American) 64.7; Est GFR (Non-African American) 55.8; Magnesium 2.1 mg/dl (1.8-2.4); Potassium 3.3 mmol/L (3.5-5.1)
[2019-06-06 08:26] LABS: Albumin Globulin Ratio 0.8 (0.9-2); Bilirubin,Total 0.8 mg/dl (0.2-1); Globulin 3.1 gm/dl (2.5-4.0); Total Protein 5.6 gm/dl (6.4-8.2)
[2019-06-06] MEDS: POTASSIUM CHLORIDE / WTR 10 MEQ/100 ML PLCT IV SCH ×4 (09:00→14:31)
[2019-06-06] MEDS: ARIPiprazole 5 MG TAB PO SCH (09:03)
[2019-06-06] MEDS: BuPROPion SR 100 MG TABCR PO SCH (09:03)
[2019-06-06] MEDS: ASPIRIN 81 MG ECTAB PO SCH (09:03)
[2019-06-06] MEDS: VENLAFAXINE HCL XR 150 MG CAPXR PO SCH (09:03)
[2019-06-06] MEDS: PANTOprazole 40 MG TAB PO SCH ×2 (09:03→20:04)
[2019-06-06] MEDS: VENLAFAXINE HCL XR 75 MG CAPXR PO SCH (09:03)
[2019-06-06] MEDS: FOLIC ACID 1 MG TAB PO SCH ×2 (09:04→20:03)
[2019-06-06] MEDS: TAMSULOSIN HCL 0.4 MG CAP PO SCH (09:04)
[2019-06-06] MEDS: predniSONE 5 MG TAB PO SCH (09:57)
--- NOTE | 2019-06-06 12:36 | Family Medicine Progress Note ---
Date of Service June 06, 2019 Assessment & Plan (1) Left lower lobe pneumonia: Patient is a 73 year old male with recent right 10mm ureteral stone s/p stent and lithotripsy who returned 2 days after the procedure secondary to weakness, chills, poor oral intake, and general malaise. Left Lower Lobe Pneumonia -Concern for Gram Neg vs MRSA pneumonia and initially started on Vancomycin and Zosyn. -Vancomycin stopped as MRSA swab was negative. -Blood cultures showed no growth. -WBC 10.69 today, markedly improved. -Plan for Zosyn while inpatient changing to Augmentin on d/c for complete 7 days total. -Currently Zosyn day 6/, plan to DC after completion tomorrow. -Currently breathing well and stable at 94% on room air. -PT/OT ordered today. KAYKAY -Likely due initially to dehydration, sepsis, recent ureteral calculus and stent - resolving -Continue Flomax 2/2 recent ureteral calculus and stent -Cr 1.26 today, improved from 1.44 yesterday. -Nephrology signed off at this point in time. Hypokalemia -Potassium 3.3 this AM. -Continue to replete today with 40meq K-rider IV. -Will reevaluate in the AM. Wide complex tachycardia -Patient was noted to have 11 beats of V-Tach on cardiac nurse specialist at 19:32 on 06/04/19. -Patient denies noting any changes in their heartbeat or chest pain when questioned. -Will continue to monitor. Severe Sepsis -Likely due to pneumonia - resolving. -Evidence of organ failure with KAYKAY on admission. Esophageal Dilation/Dysphagia -h/o poor intake for almost a year -describes vomiting and regurgitating a lot of what he eats -cannot taste or smell -CT chest 06/03 showed moderate esophageal dilatation -GI consulted -EGD today was negative for concerning etiology -Recommend resume previous diet, continue present medications, and consider formal motility study as outpatient. -Patient noted similar complaints in the past that were alleviated with Nystatin. -Ordered for Nystatin 5mg Swish and Swallow TID x 7 days. -Patient converted to Full Liquid diet since he notes better swallowing of liquids. Elevated Troponin -no chest pain, no ischemic EKG changes -Likely 2/2 demand ischemia in the setting of severe sepsis. -repeat troponin q6 x 2 more sets - trended down Weight Loss -Noted unintentional weight loss of >100lbs to admitting team. -Likely secondary to poor oral intake and vomiting -No obvious evidence of malignancy noted on both CT chest and CT abdomen/pelvis. -EGD yesterday ruled out distal esophageal lesion. Acute Dehydration -resolved Temporal Arteritis -was on Hydrocortisone 50mg q8, stopped due to concern it may have contributed to hallucinations. -Prednisone 5mg QD resumed yesterday, will monitor patients mental status. Delirium -Currently stable and states he is "not hallucinating" but that he mistook what he saw outside of his window for something else. -Likely hospital delirium with ?contribution from Hydrocortisone. -Pt not overly alarmed by hallucinations. -Will continue to monitor patient, especially with resuming prednisone. Depressive Disorder -Continue home Aripiprazole, Bupropion, and Venlafaxine Hyperlipidemia -Continue home Simvastatin FEN/GI - Full Liquid DVT - Heparin Code - Full Dispo - Med/Surg w/ Tele - Spoke with patient today about discharge tomorrow to home, patient agreeable. (2) KAYKAY (acute kidney injury): (3) Severe sepsis: (4) Esophageal dilatation: (5) Elevated troponin: (6) Weight loss: (7) Acute dehydration: (8) Temporal arteritis: (9) Delirium: (10) Hypokalemia: (11) Arrhythmia: (12) Dysphagia: (13) Depressive disorder: (14) Hyperlipidemia: Supervising Physician Co-Signing Physician Notes Resident Physician Supervision Note: I independently interviewed and examined the patient and verified the alvarez history and physical, reviewed labs and image studies, discussed the case with the resident Dr. Sun and agree with the findings and care plan. Subjective Patient seen and examined this AM at the bedside. Patient stated that he has continued to vomit if he eats anything more than 2-3 small bites of food and that this primarily is due to food getting "stuck" in the middle of his throat. He makes a very conscious effort to explain to me that his problem is at the level of his throat and that it is not nausea originating from his stomach. He states that typically it is solid foods that get stuck and that liquids are easier to swallow. He denies any difficulties breathing this AM. He continues to note slight LRQ pain which is TTP at a 5/10 intensity. Review of Systems Constitutional: no fever and no chills Eyes: no photophobia and no worsening vision Ear, Nose, Mouth, Throat: + dry mouth and + dysphagia Respiratory: no cough, no dyspnea, no dyspnea on exertion, no pain on inspir ation and no wheezing Cardiovascular: no chest pain, no dyspnea, no dyspnea on exertion, no palpitations and no edema Gastrointestinal: + abdominal pain (LRQ 5/10 sharp on palpation), + nausea, + vomiting and + dysphagia; no constipation and no diarrhea/loose stools Genitourinary: + urinary frequency and + hematuria; no dysuria Musculoskeletal: no back pain Physical Exam Constitutional: WD/WN, vitals as above well developed, well nourished and + overweight; no acute distress and not ill appearing Eyes: PERRL, conjunctivae normal, anicteric sclerae no nystagmus ENMT: Ears: + 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, chronic) Neck: trachea midline, no thyromegaly normal visual inspection and trachea midline Respiratory: normal respiratory effort; no respiratory distress, no cough, not tachypneic and no audible wheezes Auscultation: lungs clear to auscultation bilaterally; no crackles, no rales and no wheezes Cardiovascular: RRR, no murmur, no edema Rate/Rhythm: regular rate and regular rhythm Vessels: no JVD Extremities: no calf tenderness Gastrointestinal (Abdomen): Inspection/Auscultation: abdomen normal to inspection and normal bowel sounds; abdomen not distended Percussion/Palpation: + abdomen tender (TTP in lower R quadrant) and abdomen soft Genitourinary: no CVA tenderness Results & Data Vital Signs (Past 12 Hours) Vital Signs Temp Pulse Pulse Pulse Resp BP BP 06/06/19 11:24 36.6 C 85 18 114/69 06/06/19 10:44 96 H 06/06/19 07:34 36.6 C 71 18 128/72 06/06/19 03:05 36.7 C 79 18 122/80 Pulse Ox 06/06/19 11:24 92 06/06/19 10:44 06/06/19 07:34 94 06/06/19 03:05 91 Laboratory Results Abnormal lab results 06/06/19 06/06/19 Range/Units 07:22 07:22 RBC 3.68 L (4.7-6.1) M/uL Hgb 11.7 L (14.0-18.0) g/dL Hct 35.9 L (42-52) % RDW Std Deviation 57.5 H (36.4-46.3) fL RDW Coeff of Melba 16.3 H (11.5-14.5) % Immature Gran # (Auto) 0.18 H (0.00-0.02) K/uL Neut # (Auto) 8.22 H (1.4-6.5) K/uL Lymph # (Auto) 0.79 L (1.2-3.4) K/uL Moffat # (Auto) 1.12 H (0.11-0.59) K/uL Potassium 3.3 L (3.5-5.1) mmol/L Chloride 108 H (98-107) mmol/L BUN/Creatinine Ratio 8.3 L (10-20) Calcium 8.4 L (8.5-10.1) mg/dl Total Protein 5.6 L (6.4-8.2) gm/dl Albumin 2.5 L (3.4-5.0) gm/dl Albumin/Globulin Ratio 0.8 L (0.9-2) Medications Administered Current Inpatient Medications Acetaminophen (Tylenol) 650 mg PO Q4H PRN PRN Reason: Pain or Fever Stop: 06/30/19 19:41 Aripiprazole (Abilify) 5 mg PO DAILY [facility] Stop: 07/01/19 08:59 Last Admin: 06/06/19 09:03 Dose: 5 mg Documented by: Aspirin (Ecotrin Ectab) 81 mg PO [facility] Stop: 07/01/19 08:59 Last Admin: 06/06/19 09:03 Dose: 81 mg Documented by: Bupropion HCl (Wellbutrin-Sr) 100 mg PO [facility] Stop: 07/01/19 08:59 Last Admin: 06/06/19 09:03 Dose: 100 mg Documented by: Clonazepam (Klonopin) 0.5 mg PO BID PRN PRN Reason: Anxiety Stop: 06/30/19 19:41 Docusate Sodium (Colace) 100 mg PO DAILY PRN PRN Reason: Constipation Stop: 06/30/19 22:25 Folic Acid (Folvite) 1 mg PO BID [facility] Stop: 06/30/19 20:59 Last Admin: 06/06/19 09:04 Dose: 1 mg Documented by: Heparin Sodium (Porcine) (Heparin Sodium (Porcine)) 5,000 units SQ Q8 [facility] Stop: 06/30/19 21:59 Last Admin: 06/06/19 15:12 Dose: 5,000 units Documented by: Piperacillin Sod/Tazobactam (Sod 3.375 gm/ Dextrose) 115 mls @ 28.75 mls/hr IV Q8H [facility]; Protocol Stop: 06/07/19 22:59 Last Admin: 06/06/19 15:12 Dose: 28.8 mls/hr Documented by: Ioversol (Optiray 320 100ml) 91 ml IV ONCE PRN PRN Reason: Interaction Checking Stop: 06/07/19 10:38 Last Admin: 06/03/19 10:40 Dose: 91 ml Documented by: Miscellaneous Information (Consult) 1 ea N/A UD PRN PRN Reason: Consult Stop: 06/30/19 20:35 Nystatin (Mycostatin) 5 ml PO TID [facility] Stop: 06/16/19 20:59 Ondansetron HCl (Zofran) 4 mg IV Q6H PRN PRN Reason: Nausea Stop: 06/30/19 19:41 Last Admin: 06/05/19 04:36 Dose: 4 mg Documented by: Oxycodone/Acetaminophen (Percocet 10/325mg) 1 tab PO Q4H PRN PRN Reason: pain Stop: 06/14/19 22:25 Last Admin: 06/06/19 09:22 Dose: 1 tab Documented by: Pantoprazole Sodium (Protonix) 40 mg PO BID [facility] Stop: 06/30/19 20:59 Last Admin: 06/06/19 09:03 Dose: 40 mg Documented by: Prednisone (Prednisone) 5 mg PO DAILY [facility] Stop: 07/05/19 13:59 Last Admin: 06/06/19 09:57 Dose: 5 mg Documented by: Simvastatin (Zocor) 40 mg PO QPM [facility] Stop: 06/30/19 20:59 Last Admin: 06/05/19 20:11 Dose: 40 mg Documented by: Tamsulosin HCl (Flomax) 0.4 mg PO QAM [facility] Stop: 07/01/19 08:59 Last Admin: 06/06/19 09:04 Dose: 0.4 mg Documented by: Venlafaxine HCl (Effexor Extended Release) 75 mg PO QAM [facility] Stop: 07/01/19 08:59 Last Admin: 06/06/19 09:03 Dose: 75 mg Documented by: Venlafaxine HCl (Effexor Extended Release) 150 mg PO QAM [facility] Stop: 07/01/19 08:59 Last Admin: 06/06/19 09:03 Dose: 150 mg Documented by: PG Care Time/CCT Total # of Minutes Spent Total Time Spent with Patient: Total time spent is greater than 50% in coordination of care (as documented) at patient's floor/unit and/or counseling patient: Resident Activity Tracking Resident Involvement: Resident Care Provided Care Provided: Adult Hospital Medicine (1) Left lower lobe pneumonia Pneumonia type: due to unspecified organism Qualified Code(s): J18.1 - Lobar pneumonia, unspecified organism
[2019-06-06] MEDS: SIMVASTATIN 40 MG TAB PO SCH (20:04)
[2019-06-06] MEDS: NYSTATIN SUSP 500,000 U/5 ML UDC PO SCH (20:26)
[2019-06-07] MEDS: OXYCODONE/ACETAMINOPHEN 10-325 TAB PO PRN ×3 (04:51→14:52)
[2019-06-07] MEDS: PIPERACILLIN/TAZOBACTAM 3.375 GM in DEXTROSE 5% 100 ML IV SCH ×2 (05:54→14:53)
[2019-06-07] MEDS: HEPARIN SOD 5,000 UNIT/0.5 ML VIAL SQ SCH ×2 (05:56→13:01)
[2019-06-07 07:55] LABS: BUN Creatinine Ratio 7.1 (10-20); Calcium 8.4 mg/dl (8.5-10.1); Creatinine Clr Calc Pharmacy 69.3 ml/min; Est GFR (African American) 67.3; Potassium 3.4 mmol/L (3.5-5.1)
[2019-06-07] MEDS: ASPIRIN 81 MG ECTAB PO SCH (08:37)
[2019-06-07] MEDS: VENLAFAXINE HCL XR 75 MG CAPXR PO SCH (08:37)
[2019-06-07] MEDS: ARIPiprazole 5 MG TAB PO SCH (08:37)
[2019-06-07] MEDS: BuPROPion SR 100 MG TABCR PO SCH (08:38)
[2019-06-07] MEDS: predniSONE 5 MG TAB PO SCH (08:38)
[2019-06-07] MEDS: FOLIC ACID 1 MG TAB PO SCH (08:38)
[2019-06-07] MEDS: NYSTATIN SUSP 500,000 U/5 ML UDC PO SCH ×2 (08:38→14:52)
[2019-06-07] MEDS: TAMSULOSIN HCL 0.4 MG CAP PO SCH (08:38)
[2019-06-07] MEDS: VENLAFAXINE HCL XR 150 MG CAPXR PO SCH (08:38)
[2019-06-07] MEDS: PANTOprazole 40 MG TAB PO SCH (08:38)
--- NOTE | 2019-06-07 10:01 | Discharge Summary ---
Date of Service June 07, 2019 Admission HPI Per Admitting Provider 73 yo male with recent finding of right ureteral stone, s/p stent and lithotripsy who returned two days after the procedure due to weakness, chills, poor oral intake and general malaise. History was difficult to obtain in detail as the patient would not directly answer questions, difficult to keep on track. He admitted to right sided abdominal pain. He was making urine but very little and it was red since the procedure. The pain was intermittent, sharp in nature, nothing would make it better or worse. He had not moved his bowels in a few days. He was experiencing shortness of breath. No cough. He had been following with Dr. Donovan as outpatient for unexplained weight loss. He claims to have lost over 100lbs without trying. His appetite has been normal. He also suffers from temporal arteritis and he says that a recent ESR was > 90. In the ED he was tachycardic, afebrile, BP preserved. WBC markedly elevated at 26k and Cr up from his baseline to 2.5, K low normal at 3.7. CXR showed infiltr ate in left base. CT abd/pelvis showed the right ureteral stent in place and fragmentation of prior stone. Some traumatic changes in the area were evident. Case was discussed with urology by ED staff, these are expected changes, no need for surgery at this time. I discussed the case with Dr. Tineo in the ED, plan for admission. the patient was given 1L NSS and Vancomycin and Zosyn. Blood an d urine cultures obtained. Of note, lactic acid up at 2.9 Admission Exam Per Admitting Provider Constitutional: + ill appearing, cooperative and + overweight; no acute distress Eyes: PERRL, conjunctivae normal, anicteric sclerae ENMT: external ear and nose normal, oropharynx normal (dry mucous membranes) Neck: trachea midline, no thyromegaly Respiratory: normal respiratory effort, lungs clear to auscultation Auscultation: + diminished lung sounds (bases) Cardiovascular: RRR, no murmur, no edema Gastrointestinal (Abdomen): normal bowel sounds, soft, nontender, no hepatosplenomegaly Musculoskeletal: no cyanosis or clubbing, extremities motor strength 5/5 Skin: no rashes, warm and dry Neurologic: patellar DTR's 2+ bilat, sensation intact and PERRL, EOMI, accommodation nl, no face palsy, no dysarthria Psychiatric: A+Ox3, euthymic affect Lymphatic: no cervical or axillary lymphadenopathy Principal Diagnosis Pneumonia Discharge Exam Constitutional WD/WN, vitals as above well developed, well nourished and + overweight; no acute distress and not ill appearing Eyes PERRL, conjunctivae normal, anicteric sclerae no nystagmus ENMT Ears: + 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, chronic) Neck trachea midline, no thyromegaly normal visual inspection and trachea midline Respiratory normal respiratory effort; no respiratory distress, no cough, not tachypneic and no audible wheezes Auscultation: lungs clear to auscultation bilaterally; no crackles, no rales and no wheezes Cardiovascular RRR, no murmur, no edema Rate/Rhythm: regular rate and regular rhythm Vessels: no JVD Extremities: no calf tenderness Gastrointestinal (Abdomen) Inspection/Auscultation: abdomen normal to inspection and normal bowel sounds; abdomen not distended Percussion/Palpation: + abdomen tender (TTP in lower R quadrant) and abdomen soft Genitourinary no CVA tenderness Lymphatic no cervical or axillary lymphadenopathy no lymphadenopathy and no lymphedema Discharge Data Allergies Allergy/AdvReac Type Severity Reaction Status Date / Time No Known Allergies Allergy Unknown Verified 05/31/19 15:50 Consultations 05/31/19 17:37 ED Decision to Admit Stat 05/31/19 19:42 Consult Case Management - Discharge Planning Routine Consult Nephrology Routine Consult Urology Routine 06/03/19 11:05 Consult Gastroenterology Routine Procedures Performed Operation Date: 06/05/19 09:55 Actual Procedures p Esophagogastroduodenoscopy - Mitchell Segura, DO Ordered Studies 05/31/19 16:08 CT abd pelvis wo con Stat 06/03/19 08:00 CT chest w con Routine CT head/brain wo con Routine Hospital Course (1) Left lower lobe pneumonia: Patient is a 73 year old male with recent right 10mm ureteral stone s/p stent and lithotripsy who returned 2 days after the procedure secondary to weakness, chills, poor oral intake, and general malaise. Left Lower Lobe Pneumonia -Concern for Gram Neg vs MRSA pneumonia and initially started on Vancomycin and Zosyn. -Vancomycin stopped as MRSA swab was negative. -Blood cultures showed no growth. -Completed 7 day course of IV Zosyn. -Patient breathing well and stable at 94% on room air in no acute distress. -PT/OT evaluated and treated. KAYKAY -Likely due initially to dehydration, sepsis, recent ureteral calculus and stent - resolved -Continued Flomax 2/2 recent ureteral calculus and stent -Cr 1.22 upon discharge. -Nephrology signed off at this point in time. Severe Sepsis -Likely due to pneumonia - resolved. -Evidence of organ failure with KAYKAY on admission. Esophageal Dilation/Dysphagia -h/o poor intake for almost a year -described vomiting and regurgitating a lot of what he eats -cannot taste or smell -CT chest 06/03 showed moderate esophageal dilatation -GI consulted -EGD was negative for concerning etiology -Recommend resume previous diet, continue present medications, and to consider formal motility study as outpatient. -Patient noted similar complaints in the past that were alleviated with Nystatin. -Ordered for Nystatin 5mg Swish and Swallow TID x 7 days to be completed in the outpatient setting. -Patient converted to Full Liquid diet since he noted better swallowing of liquids, tolerated well. Elevated Troponin -no chest pain, no ischemic EKG changes -Likely 2/2 demand ischemia in the setting of severe sepsis. -repeat troponin q6 x 2 more sets - trended down -resolved Weight Loss -Noted unintentional weight loss of >100lbs to admitting team. -Likely secondary to poor oral intake and vomiting -No obvious evidence of malignancy noted on both CT chest and CT abdomen/pelvis. -EGD ruled out distal esophageal lesion. Acute Dehydration -resolved Hypokalemia -Potassium 3.4, repleted with K-Jonas IV prior to discharge. Wide complex tachycardia -Patient was noted to have 11 beats of V-Tach on solderer at 19:32 on 06/04/19. -Patient denies noting any changes in their heartbeat or chest pain when questioned. -Patient was monitored and had no subsequent events. Temporal Arteritis -was on Hydrocortisone 50mg q8, stopped due to concern it may have contributed to hallucinations. -Prednisone 5mg QD was resumed, patient was monitored for mental status changes. Delirium -Currently stable and states he is "not hallucinating" but that he mistook what he saw outside of his window for something else. Depressive Disorder -Continued home Aripiprazole, Bupropion, and Venlafaxine Hyperlipidemia -Continued home Simvastatin FEN/GI - Full Liquid DVT prophylaxis with Heparin while inpatient Code - Full Dispo - Home (2) KAYKAY (acute kidney injury): (3) Severe sepsis: (4) Esophageal dilatation: (5) Elevated troponin: (6) Weight loss: (7) Acute dehydration: (8) Temporal arteritis: (9) Delirium: (10) Hypokalemia: (11) Arrhythmia: (12) Dysphagia: (13) Depressive disorder: (14) Hyperlipidemia: Total Time Total Time Spent Total Time Spent (In Minutes): see attending attestation Discharge Plan Discharge Items Patient Disposition: Home - Home Health Services Reason For Visit: SEPSIS DUE TO UTI Discharge Diagnosis: Pneumonia Dysphagia Condition on Discharge: Good Activity: Resume your previous activity Non-emergency contact: Primary Care Provider Call non-emergency contact if: you have any medication questions and your symptoms worsen Follow-up/Referrals: Mitchell Segura DO [Physician] - (motility study ) Ovidio Donovan MD [Primary Care Provider] - Jonny Chen II, DO [Physician] - 06/14/19 11:15 am (Please go for xray the morning of or night before prior to your appointment at [facility] Main Entrance. ) Diet: Full liquid Addtl Attending Provider Instructions: Mr. Juarez, you were admitted on 05/31/19 initially due to weakness, chills, poor oral intake, and general malaise after having a R ureteral stent placement and lithotripsy. Upon your presentation it was noted on a chest x-ray that you had infiltrate in your left lower lung, expected to be pneumonia. You also showed signs of sepsis which were attributed to your likely pneumonia. You were treated on IV antibiotics and your symptoms greatly improved. Also of note during your stay was that during a Chest CT scan, it was noted that you had dilation of your esophagus. Alongside your concerns of poor oral intake and note of difficulty swallowing food since September, you underwent an EGD with Dr. Segura that was normal. Dr. Segura then recommended that you have a future formal motility study as an outpatient procedure. Since you were still having difficulty swallowing, you were switched to a full liquid diet so that it could be more tolerable. You were also prescribed a Nystatin Swish and Swallow, for concern of possible fungal infection of your esophagus, which you will continue for the next 5 days after discharge for a total of 7 days of use. You have noted improvement of your symptoms since admission and are feeling well enough to be discharged. Please follow the below instructions upon discharge. -Please continue to use your Nystatin Swish and Swallow for the following 6 days as prescribed for a total of 7 days of use. -Please follow up with your PCP within the next 1-3 days. -Please follow up with Gastroenterology so that you may set up a future formal motility study. -If you have any questions, please contact your PCP or your [facility]. Pending Studies at Discharge: No Studies:: CT head/brain wo con CT DOSE: HISTORY: Mental status change Loss of smell and taste, r/o tumor TECHNIQUE: Multiaxial CT images of the head were performed without the use of intravenous contrast. A dose lowering technique was utilized adhering to the principles of ALARA. Comparison: None. Findings: The paranasal sinuses and mastoid air cells are clear. The calvarium and skull base are intact. The ventricles and sulci are within normal limits. There is no mass, hematoma, midline shift, or acute infarct. Age-related atrophy and chronic small vessel change Impression: No acute intracranial abnormality. Age-related atrophy and chronic small vessel change. The above report was generated using voice recognition software. It may contain grammatical, syntax or spelling errors. Electronically signed by: Cuco Ruiz M.D. 06/03/2019 10:47 AM Dictated: 06/03/19 1046 Transcribed: 06/03/[address] chest w con CT DOSE: 2098.80 mGy.cm HISTORY: Weight loss Unexplained weight loss, 70lbs TECHNIQUE: Multiaxial CT images of the chest were performed following the in travenous administration of contrast. A dose lowering technique was utilized adhering to the principles of ALARA. COMPARISON: 11/14/2015 FINDINGS: Chronic interstitial change throughout both hemithoraces. No significant mass or nodularity in the lung parenchyma. Moderate distention of the esophagus with a moderate amount of debris. Possibility of either reflux or a distal esophageal lesion at the gastroesophageal junction should be considered. Endoscopic evaluation is suggested. Moderate atherosclerotic change thoracic aorta. No evidence for aneurysm or dissection. No significant hilar or mediastinal adenopathy. It is noted made of a right renal stent. IMPRESSION: 1. Moderate distention of the esophagus extending to the gastroesophageal junction. 2. Endoscopic evaluation is suggested to exclude any possibility of a distal esophageal lesion. 3. Remainder the chest is remarkable only for chronic interstitial change. The above report was generated using voice recognition software. It may contain grammatical, syntax or spelling errors. Electronically signed by: Cuco Ruiz M.D. 06/03/2019 10:57 AM Dictated: 06/03/19 1053 Transcribed: 06/03/19 1053 XR chest 1V portable CLINICAL HISTORY: weakness dyspnea COMPARISON STUDY: 05/25/2019 FINDINGS: Stable cardiomegaly. Parenchymal infiltrate left base. Lungs otherwise appear clear. IMPRESSION: Cardiomegaly. Parenchymal infiltrate left base. The above report was generated using voice recognition software. It may contain grammatical, syntax or spelling errors. Electronically signed by: Cuco Ruiz M.D. 05/31/2019 4:47 PM Dictated: 05/31/19 1646 Transcribed: 05/31/191645 CT abd pelvis wo con CT DOSE: 1046.34 mGycm HISTORY: Pain. Nephrocalcinosis. recent litho and stents, ab pain TECHNIQUE: Multiaxial CT images of the abdomen and pelvis were performed without contrast. A dose lowering technique was utilized adhering to the principles of ALARA. COMPARISON STUDY: 05/09/2019 FINDINGS: Mild chronic interstitial fibrotic change both lung bases. Liver spleen and pancreas are grossly unremarkable. Mild gallbladder distention. Interval placement of a right ureteral stent. Interval fragmentation of the proximal right ureteral calculus. Fragments are noted throughout the right renal collecting system with pre-existing bilateral nephrocalcinosis unchanged. Progressive infiltrative change of the inferior right perirenal fat region versus mid right periureteral fat. This potentially indicates right renal for mesial and/or calyceal rupture versus post traumatic change to the right ureter. No evidence for well-defined abscess or collection at this time. Bladder is relatively collapsed. 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 Scattered colonic diverticuli with no evidence for diverticulitis. Nonobstructive bowel pattern throughout. IMPRESSION: 1. Interval placement of right ureteral stent with apparent lithotripsy and fragmentation of the calcification of the right ureteral pelvic junction calcification previously described. 2. Progressive infiltrative change of the periureteral fat at the level of the midright ureter and/or possibly inferior right perinephric space. 3. Stable bilateral nephrocalcinosis. 4. This infiltrative change potentially relates to traumatic insult to the mid right ureter due to the stent placement procedure, versus interval/calyceal rupture of the right kidney. 5. No evidence for drainable abscess or collection. 6. Improved hydronephrosis as compared to the prior exam The above report was generated using voice recognition software. It may contain grammatical, syntax or spelling errors. Electronically signed by: Cuco Ruiz M.D. 05/31/2019 5:05 PM Dictated: 05/31/191654 Transcribed: 05/31/191654 DICTATED BY: Mitchell Segura DO Patient Name: Gio Juarez Procedure Date: 06/05/2019 1:40 PM Date of : 1945 Admit Type: Inpatient Age: 73 Gender: Male Attending MD: Mitchell Segura DO Procedure: Upper GI endoscopy Providers: Mitchell Segura DO Referring MD: Zakia Ratliff Indications: Abnormal CT of the GI tract, Weight loss Medicines: Monitored Anesthesia Care Complications: No immediate complications. Estimated Blood Loss: Estimated blood loss: none. Procedure: Pre-Anesthesia Assessment: - Prior to the procedure, a History and Physical was performed, and patient medications and allergies were reviewed. The patient's tolerance of previous anesthesia was also reviewed. The risks and benefits of the procedure and the sedation options and risks were discussed with the patient. All questions were answered, and informed consent was obtained. Prior Anticoagulants: The patient has taken aspirin, last dose was 5 days prior to procedure. ASA Grade Assessment: IV - A patient with severe systemic disease that is a constant threat to life. After reviewing the risks and benefits, the patient was deemed in satisfactory condition to undergo the procedure. After obtaining informed consent, the endoscope was passed under direct vision. Throughout the procedure, the patient's blood pressure, pulse, and oxygen saturations were monitored continuously. The Endoscope was introduced through the mouth, and advanced to the second part of duodenum. The upper GI endoscopy was accomplished without difficulty. The patient tolerated the procedure well. Findings: No appreciable esophageal motility was noted. In addition, a hypertonic lower esophageal sphincter was found. There was moderate resistance to endoscope advancement into the stomach. The Z-line was regular. The gastroesophageal junction and cardia were normal on retroflexed view. The stomach was normal. The examined duodenum was normal. Impression: - Esophageal motility disorder. - Normal stomach. - Normal examined duodenum. - No specimens collected. Recommendation: - Return patient to [facility] for [facility] care. - Resume previous diet. - Continue present medications. - Consider formal motility study as outpatient. Mitchell Segura DO 06/05/2019 2:16:34 PM This report has been signed electronically. Note Initiated On: 06/05/2019 1:40 PM Number of Addenda: 0 I attest to the content of the Intraoperative Record and orders documented therein, exceptions below {[id number]} Signed By:06/05/19 1416 Dictated: 06/05/19 1340 Transcribed: 06/05/19 141Transcriptionist: STEFF Stand-Alone Forms: [facility], Smoking Cessation Medications and DC Order Prescriptions: New nystatin 100,000 unit/mL Suspension 5 ml PO TID 6 Days Qty: 90 RF: 0 bupropion HCl 100 mg Tablet Sustained-Release 12 Hr 100 mg PO QAM 30 Days Qty: 30 RF: 0 Continued hyoscyamine sulfate 0.125 mg tablet, sublingual 0.125 mg SL Q4H PRN (Reason: dyspepsia) Qty: 30 RF: 1 prednisone 20 mg tablet 60 mg PO DAILY Qty: 100 RF: 0 folic acid 1 mg tablet 1 mg PO BID Qty: 180 RF: 0 furosemide 40 mg tablet 40 mg PO BID Qty: 180 RF: 0 potassium chloride 20 mEq tablet extended release 40 meq PO BID Qty: 360 RF: 0 methotrexate sodium 2.5 mg tablet 7.5 mg PO .COMPLEX RF: 0 pantoprazole 40 mg tablet,delayed release (DR/EC) 40 mg PO BID Qty: 60 RF: 0 simvastatin 40 mg tablet 40 mg PO QPM Qty: 90 RF: 0 spironolactone 25 mg tablet 25 mg PO BID Qty: 180 RF: 0 tamsulosin 0.4 mg capsule 0.4 mg PO QAM Qty: 90 RF: 0 venlafaxine 75 mg capsule,extended release 24hr 75 mg PO QAM Qty: 90 RF: 0 venlafaxine 150 mg capsule,extended release 24hr 150 mg PO QAM Qty: 90 RF: 0 clonazepam 0.5 mg Tablet 0.5 mg PO BID PRN (Reason: Anxiety) RF: 0 aspirin [Aspirin Low Dose] 81 mg Tablet,Delayed Release (Dr/Ec) 81 mg PO QAM RF: 0 prednisone 1 mg Tablet 2 mg PO QAM RF: 0 docusate sodium [Stool Softener] 100 mg Capsule 100 mg PO DAILY PRN (Reason: Constipation) RF: 0 oxycodone-acetaminophen [Percocet] 7.5-325 mg tablet 1 tab PO Q8H PRN (Reason: pain) Qty: 10 RF: 0 prednisone 5 mg tablet 5 mg PO DAILY RF: 0 aripiprazole 5 mg tablet 5 mg PO DAILY RF: 0 bupropion HCl [Wellbutrin SR] 150 mg Tablet Sustained-Release 12 Hr 150 mg PO DAILY RF: 0 No Action oxycodone-acetaminophen 10-325 mg tablet 1 tab PO Q4H PRN (Reason: pain) Qty: 150 RF: 0 Discharge Orders: Discharge Order (Routine); Ordered 06/07/19 Ordered By: Hi Sun Admission Data Admit Date/Time: 05/31/19 18:19 Attending Provider: Zakia Ratliff Admit Provider: Babak Do Primary Care Provider: Ovidio Donovan Other Providers: Ray Su ; Ovidio Donovan ; Jonny Chen II ; Shapleigh,Kamiah [facility] ; Mitchell Segura ; Babak Do Other Interventions: Discharge Summary Assessment (RN) Last Done: 06/07/19 11:02 DC Date/Time DO NOT enter until pt leaves facility: 06/07/19 16:05 Supervising Physician Co-Signing Physician Notes Resident Physician Supervision Note: I independently interviewed and examined the patient and verified the alvarez history and physical, reviewed labs and image studies, discussed the case with the resident Dr. Sun and agree with the findings and care plan. Time spent in discharge 35 min Resident Activity Tracking Resident Involvement: Resident Care Provided Care Provided: Adult Hospital Medicine
[2019-06-07] MEDS: POTASSIUM CHLORIDE / WTR 10 MEQ/100 ML PLCT IV SCH ×2 (10:40→12:03)
== END 2019-06-07 16:05 | disposition home health service (06) | DRG 871 ==
LOC: ED 15:07 → SUATTDRO 18:19 → 2N 18:19

== ENCOUNTER 2019-08-07 13:58 | Inpatient (IN) ==
[2019-08-07] MEDS ORDERED: SODIUM CHLORIDE 0.9% 1000ML 1,000 ML IV ONE ×2 (14:23→15:33)
[2019-08-07 14:58] LABS: Basophils # (auto) 0.01 K/uL (0-0.2); Basophils % (auto) 0.1 %; Eosinophils # (auto) 0.01 K/uL (0-0.5); Eosinophils % (auto) 0.1 %; Hematocrit (blood only) 39.2 % (42-52); Hemoglobin 12.9 g/dL (14.0-18.0); Immature Granulocytes # (auto) 0.08 K/uL (0.00-0.02); Immature Granulocytes % (auto) 0.4 %; Lymphocytes # (auto) 0.45 K/uL (1.2-3.4); Lymphocytes % (auto) 2.3 %; Mean Corpuscular Hemoglobin 32.7 pg (25-34); Mean Corpuscular Hgb Conc 32.9 g/dL (32-36); Mean Corpuscular Volume 99.2 fL (80-100); Mean Platelet Volume 10.1 fL (7.4-10.4); Monocytes # (auto) 0.48 K/uL (0.11-0.59); Monocytes % (auto) 2.5 %; Neutrophils # (auto) 18.42 K/uL (1.4-6.5); Neutrophils % (auto) 94.6 %; Nucleated RBC # (auto) 0.02 K/uL (0-0); Nucleated RBC % (auto) 0.1 %; Platelet Count 276 K/uL (130-400); RDW Coefficient of Variation 17.8 % (11.5-14.5); RDW Standard Deviation 64.5 fL (36.4-46.3); Red Blood Count 3.95 M/uL (4.7-6.1); White Blood Count 19.45 K/uL (4.8-10.8)
--- NOTE | 2019-08-07 15:00 | XRay Report ---
XR chest 1V portable CLINICAL HISTORY: 74 years-old Male presenting with weakness. TECHNIQUE: Portable upright AP view of the chest was obtained. COMPARISON: 05/31/[address] from 06/03/2019. FINDINGS: Atherosclerosis of the aortic arch. Cardiac silhouette normal in size. Minimal basilar opacities. No pleural effusion or pneumothorax. Degenerative changes of the thoracic spine. Anchors noted in the le ft humeral head. Upper abdomen normal. IMPRESSION: 1. Minimal basilar opacities likely atelectasis or scarring. No convincing evidence of acute cardiop ulmonary disease. ACT 112: Negative or not required by law. Electronically signed by: Bhavik Richardson M.D. 08/07/2019 2:59 PM
--- NOTE | 2019-08-07 15:02 | XRay Report ---
XR elbow LT min 3V routine CLINICAL HISTORY: 74 years-old Male presenting with left elbow swelling. TECHNIQUE: Frontal, oblique, and lateral views of the left elbow were obtained. COMPARISON: None. FINDINGS: Diffuse soft tissue swelling at the elbow. Enthesophytes at the origin of the common flexor and exten sor tendons. Elbow joint congruent with preserved joint space. Prominent enthesophyte at the insertio n of the triceps tendon with a fracture of the enthesophyte evident. Overlying soft tissue swelling f ocally. No acute fracture or malalignment. No advanced degenerative change. No radiographic evidence of an elbow joint effusion. IMPRESSION: 1. Fractured enthesophyte at the insertion of the triceps tendon. 2. Contusion over the olecranon versus traumatic bursitis. ACT 112: Negative or not required by law. Electronically signed by: Bhavik Richardson M.D. 08/07/2019 3:00 PM
[2019-08-07 15:09] LABS: INR 1.1 (0.9-1.1); Partial Thromboplastin Ratio 1.1; Prothrombin Time 11.4 Seconds (9.0-12.0)
[2019-08-07 15:19] LABS: Alanine Aminotransferase 32 U/L (12-78); Albumin Level 2.8 gm/dl (3.4-5.0); Aspartate Aminotransferase 16 U/L (15-37); BUN Creatinine Ratio 16.4 (10-20); Bilirubin Direct 0.3 mg/dl (0-0.2); Blood Urea Nitrogen 15 mg/dl (7-18); Calcium 9.3 mg/dl (8.5-10.1); Carbon Dioxide 32 mmol/L (21-32); Chloride 99 mmol/L (98-107); Creatinine Clr Calc Pharmacy 86.8 ml/min; Est GFR (African American) 95.2; Est GFR (Non-African American) 82.2; Glucose 152 mg/dl (70-99); Potassium 3.3 mmol/L (3.5-5.1); Sodium 136 mmol/L (136-145)
--- NOTE | 2019-08-07 15:23 | CT Scan Report ---
CT head/brain wo con CLINICAL HISTORY: 74 years-old Male with Weakness. Acute weakness TECHNIQUE: Multiple axial CT images of the head were obtained without contrast. A dose lowering tech nique was utilized adhering to the principles of ALARA. CT DOSE: 537.48 mGy.cm COMPARISON: Head CT 06/03/2019 FINDINGS: No acute intracranial hemorrhage, midline shift, intracranial mass, hydrocephalus, territorial ischem ia or abnormal extra-axial collection. Age-related involutional changes. Mild patchy white matter hyp odensities suggest chronic microvascular ischemic disease. Cerebral vascular calcifications are noted . The calvarium is intact. The paranasal sinuses, mastoid air cells, and middle ear cavities are kalyani ar. IMPRESSION: No acute intracranial abnormality. ACT 112: Negative or not required by law. The above report was generated using voice recognition software. It may contain grammatical, syntax o r spelling errors. Electronically signed by: Nikko Larose M.D. 08/07/2019 3:22 PM
[2019-08-07 15:30] LABS: Alkaline Phosphatase 77 U/L (45-117); Bilirubin,Total 1.3 mg/dl (0.2-1); Total Protein 6.8 gm/dl (6.4-8.2); Troponin I < 0.015 ng/ml (0-0.045)
[2019-08-07] MEDS ORDERED: VANCOMYCIN CONSULT ACTIVE PRN (15:33)
[2019-08-07] MEDS ORDERED: VANCOMYCIN HCL 2,000 MG in SODIUM CHLORIDE 0.9% 500 ML IV ONE (15:33)
[2019-08-07] MEDS ORDERED: cefTRIAXone SODIUM 2,000 MG/70 ML BAG IV STA (15:33)
--- NOTE | 2019-08-07 16:11 | History & Physical Report ---
Date of Service August 07, 2019 Assessment & Plan (1) Failure to thrive: Failure to thrive is likely secondary to ongoing malnutrition and deconditioning. Patient has significant achalasia which sounds to be worsening by history. For now will give IV fluids, can try liquid diet if patient can tolerate. Achalasia will likely need to be addressed soon so nutrition can be reestablished. We will ask PT/OT to evaluate as well. (2) Achalasia: Patient is known locally by Dr. Segura, will consult for further recommendations. Patient does have a standing appointment at [facility], depending on progress may need to consider transfer to specialist for dilation sooner. For now will try liquid diet. PPI. I did hold patient's aspirin dosing for possible procedure. (3) Acute dehydration: Per laboratory work, dehydration is likely mild. Will hydrate with normal saline and potassium supplementation. Lasix held. (4) Chronic pulmonary aspiration: This may be ongoing considering patient's achalasia. May also account for the patient's worsening white count. Will monitor for acute aspiration along with fever or other symptoms. Hold antibiotics for now. (5) Hypokalemia: IV repletion of potassium with IV fluids. (6) Traumatic bursitis: I do not feel that the patient has acute infection from traumatic bursitis at this time. Orthopedics was called by the ER to evaluate, will await for further recommendations. Will hold antibiotics until recommendations made. History of Present Illness Chief Complaint: generalized weakness Primary Care Provider: Ovidio Donovan MD This is a 74-year-old male with a past medical history of recently diagnosed achalasia, hyperlipidemia, hypokalemia that presents today complaining of dysphasia and generalized weakness. Patient is a somewhat limited historian but is accompanied by multiple family members. Patient has been on a liquid diet exclusively secondary to his problems with achalasia. He can swallow there is a tendency to spit up soon after. He denies any diarrhea or abdominal pain. He recently had esophageal manometry on 07/18 that was read as a moderate achalasia. Patient had follow-up and was scheduled for esophageal dilation on 08/15 at [facility]. He misses his appointment which was made. Up until today, patient has been having slowly worsening generalized weakness. Patient is understandably frustrated as he cannot consume solid food and the family tells me that his ability to tolerate liquids is getting worse. They also noticed progressive deconditioning, having difficulty managing the patient at home due to his weakness. Patient was previously independent but is now having significant difficulty, which prompted his presentation to the emergency room. Family denies any fever, chills, worsening cough, other worsening symptoms with the patient. The patient was afebrile with normal blood pressure at time of evaluation. He does have been a work-up revealed a leukocytosis and mildly elevated lactate level the patient has no other signs of acute infection. As a side issue, patient did have a fall 3 days prior to presentation. He did not hit his head or have loss of consciousness and attributes this to his generalized weakness. However, he did strike his left elbow. Although the elbow was fine initially, and his since become significantly inflamed and painful for the patient. X-ray showed traumatic bursitis with a fractured enthesophyte at the insertion of the triceps tendon. Allergies Allergy/AdvReac Type Severity Reaction Status Date / Time No Known Allergies Allergy Unknown Verified 08/07/19 15:11 Home Medications Home Medications Medication Instructions Recorded Confirmed Type folic acid 1 mg tablet 1 mg PO BID #180 tab 04/10/19 08/07/19 History methotrexate sodium 2.5 mg tablet 7.5 mg PO .COMPLEX tab 04/10/19 08/07/19 History pantoprazole 40 mg tablet,delayed 40 mg PO BID #60 tab 04/10/19 08/07/19 History release potassium chloride 20 mEq 40 meq PO BID #360 tab 04/10/19 08/07/19 History tablet,extended release simvastatin 40 mg tablet 40 mg PO QPM #90 tab 04/10/19 08/07/19 History spironolactone 25 mg tablet 25 mg PO BID #180 tab 04/10/19 08/07/19 History tamsulosin 0.4 mg capsule 0.4 mg PO QAM #90 cap 04/10/19 08/07/19 History venlafaxine 150 mg 150 mg PO QAM #90 cap 04/10/19 08/07/19 History capsule,extended release 24 hr venlafaxine 75 mg capsule,extended 75 mg PO QAM #90 cap 04/10/19 08/07/19 History release 24 hr hyoscyamine sulfate 0.125 mg 0.125 mg SL Q4H PRN #30 tab 05/11/19 08/07/19 Rx sublingual tablet aspirin [Aspirin Low Dose] 81 mg PO QAM 05/23/19 08/07/19 History clonazepam 0.5 mg PO BID PRN 05/23/19 08/07/19 History docusate sodium [Stool Softener] 100 mg PO DAILY PRN 05/23/19 08/07/19 History aripiprazole 5 mg PO DAILY 05/31/19 08/07/19 History bupropion HCl [Wellbutrin SR] 150 mg PO DAILY 05/31/19 08/07/19 History prednisone 20 mg tablet 20 mg PO .COMPLEX #42 tab 06/28/19 08/07/19 Rx ergocalciferol (vitamin D2) 1,000 1,000 units PO DAILY cap 07/25/19 08/07/19 History unit capsule furosemide 40 mg tablet 40 mg PO BID #180 tab 07/25/19 08/07/19 History oxycodone-acetaminophen 10 mg-325 1 tab PO Q4H PRN #150 tab 07/27/19 08/07/19 Rx mg tablet Past Med/Surg History Social History Preferred Language: Polish Communication Ability: Effective [employer] Required: No Beliefs That Will Affect Care: None marital status: Single Current Living Situation: Alone Feels Safe at Home: Yes Smoking Status: Former smoker Tobacco Type: cigarettes ; Second Hand Exposure: No ; Hx Alcohol Use: No (former heavy drinker) Hx Substance Use: Yes (medicinal medical marijuana - at [facility]) substance use type: former substance user Review of Systems Constitutional: + fatigue, + weakness, + anorexia and + weight loss; no fever, no chills, no sweats and no malaise Respiratory: no cough, no chest congestion, no change in sputum, no dyspnea and no sputum production Cardiovascular: no chest pain, no chest pain with activity, no dyspnea at rest, no palpitations, no syncope and no calf pain Gastrointestinal: + belching, + bloating, + early satiety, + nausea and + vomiting; no abdominal pain, no heartburn, no coffee ground emesis, no change in bowel habits, no change in stools, no constipation, no diarrhea/loose stools and no fecal incontinence Genitourinary: + difficulty urinating; no urinary frequency, no post-void dribbling, no hematuria and no genital pain Musculoskeletal: + joint pain Integumentary: as per Subjective / HPI Psychiatric: as per Subjective / HPI Physical Exam Constitutional: + overweight; not in distress ENMT: Mouth: oral mucous membranes not dry Neck: trachea midline, no thyromegaly Respiratory: normal respiratory effort Auscultation: lungs clear to a uscultation bilaterally; no crackles and no wheezes Cardiovascular: Rate/Rhythm: regular rate and regular rhythm Heart Sounds: normal S1 and normal S2 Vessels: no JVD and no carotid bruit Gastrointestinal (Abdomen): Inspection/Auscultation: abdomen normal to inspection and normal bowel sounds; abdomen not distended Percussion/Palpation: abdomen soft Musculoskeletal: Left elbow with edematous bursa. Small wound, healed appropriately. Nontender, minimally erythematous. Mild tender to touch. Psychiatric: A+Ox3, euthymic affect Genitourinary: Mendiola catheter, clear yellow urine in bag Results & Data Vital Signs (Past 12 Hours) Vital Signs Temp Pulse Resp BP Pulse Ox 08/07/19 14:03 36.3 C L 100 H 20 136/83 97 Laboratory Results Lab reviewed, white count of 19.4 with a left shift. Potassium 3.3. Creatinine is 0.91 which is improved from previously reported less. Lactate 2.5. Albumin is only 2.8. Diagnostic Findings XR elbow LT min 3V routine CLINICAL HISTORY: 74 years-old Male presenting with left elbow swelling. TECHNIQUE: Frontal, oblique, and lateral views of the left elbow were obtained. COMPARISON: None. FINDINGS: Diffuse soft tissue swelling at the elbow. Enthesophytes at the origin of the common flexor and extensor tendons. Elbow joint congruent with preserved joint space. Prominent enthesophyte at the insertion of the triceps tendon with a fracture of the enthesophyte evident. Overlying soft tissue swelling focally. No acute fracture or malalignment. No advanced degenerative change. No radiographic evidence of an elbow joint effusion. IMPRESSION: 1. Fractured enthesophyte at the insertion of the triceps tendon. 2. Contusion over the olecranon versus traumatic bursitis.. XR chest 1V portable CLINICAL HISTORY: 74 years-old Male presenting with weakness. TECHNIQUE: Portable upright AP view of the chest was obtained. COMPARISON: 05/31/[address] from 06/03/2019. FINDINGS: Atherosclerosis of the aortic arch. Cardiac silhouette normal in size. Minimal basilar opacities. No pleural effusion or pneumothorax. Degenerative changes of the thoracic spine. Anchors noted in the left humeral head. Upper abdomen normal. IMPRESSION: 1. Minimal basilar opacities likely atelectasis or scarring. No convincing evidence of acute cardiopulmonary disease. CT head/brain wo con CLINICAL HISTORY: 74 years-old Male with Weakness. Acute weakness TECHNIQUE: Multiple axial CT images of the head were obtained without contrast. A dose lowering technique was utilized adhering to the principles of ALARA. CT DOSE: 537.48 mGy.cm COMPARISON: Head CT 06/03/2019 FINDINGS: No acute intracranial hemorrhage, midline shift, intracranial mass, hydrocephalus, territorial ischemia or abnormal extra-axial collection. Age- related involutional changes. Mild patchy white matter hypodensities suggest chronic microvascular ischemic disease. Cerebral vascular calcifications are noted. The calvarium is intact. The paranasal sinuses, mastoid air cells, and middle ear cavities are clear. IMPRESSION: No acute intracranial abnormality. PG Care Time/CCT Total # of Minutes Spent Total Time Spent with Patient: Total time spent is greater than 50% in coordination of care (as documented) at patient's floor/unit and/or counseling patient:
[2019-08-07 16:43] LABS: Appearance Urine Clear (Clear); Bacteria Urine Automated Negative (Negative); Bilirubin Urine Negative (Negative); Blood Urine 2+ (Negative); Color Urine Yellow; Epithelial Cell Urine Auto 20-30 /lpf (0-5); Glucose Urine UA Negative (Negative); Ketones Urine Negative (Negative); Leukocyte Esterase Urine Negative (Negative); Nitrite Urine Negative (Negative); Protein Urine Negative (Negative); Specific Gravity Urine 1.015 (1.000-1.030); Urobilinogen Urine Negative (Negative)
[2019-08-07] MEDS ORDERED: clonazePAM 0.5 MG TAB PO PRN (17:44)
[2019-08-07] MEDS ORDERED: HYOSCYAMINE SULFATE 0.125 MG TAB SL PRN (17:44)
[2019-08-07] MEDS ORDERED: ONDANSETRON INJ 2 MG/ML 2 ML VIAL IV PRN (17:44)
[2019-08-07] MEDS ORDERED: ACETAMINOPHEN 325 MG TAB PO PRN (17:44)
[2019-08-07] MEDS ORDERED: DOCUSATE SODIUM 100 MG CAP PO PRN (17:44)
[2019-08-07] MEDS ORDERED: ZOLPIDEM TARTRATE 5 MG TAB PO PRN (17:44)
--- NOTE | 2019-08-07 18:18 | Emergency Department Note ---
Entered by Jessy Curtis acting as a scribe for Angel Iqbal MD ED Provider Note Name: CATERINA GUIDRY Age: 74 Arrives Via: Walk-In Informant: Patient and Patient's Family CC: Illness HPI: The patient is a 74 year old male who presents to the Emergency Room with complaints of worsening illness starting 3 days ago. The patient states that 3 days ago he had a fall and hit his left elbow. He states that since then his left elbow has been red, swollen, and painful. The patients son states that he believes it may be infected. He notes that his father has also had difficulty controlling his urination, difficulty remembering things even short term, and difficulty swallowing. He notes that his swallowing issues have been ongoing but got worse to the point that he cannot even drink without it coming back up. The patient notes that he has not taken his mediation for the last 5 days. The patient denies a headache, neck pain, abdominal pain, and taking new medica tions. ROS: See above HPI for pertinent positives & negatives. A total of 10 systems reviewed and were otherwise negative. Past Medical History:Anxiety, atrial fibrillation, COPD, CHF, degenerative disc disease, depression, GERD, HLD, HTN, kidney stones, osteoarthritis, prostate cancer, temporal arteritis Past Surgical History:Colonoscopy, tonsillectomy, shoulder surgery, toe surgery, nasal septoplasty Family History:HTN Social History:The patient is single and lives alone. He is a former smoker and former heavy drinker. He is a former substance abuser and now only smokes marijuana. Home Medications:aripiprazole, aspirin, wellbutrin, clonazepam, docusate sodium, folic acid, furosemide, hyoscyamine sulfate, methotrexate sodium, oxycodone-acetaminophen, pantoprazole, potassium chloride, prednisone, simvastatin, spironolactone, tamsulosin, venlafaxine Allergies:No known allergies Vitals:Blood Pressure: 198/121, Pulse Rate: 109, Respiratory Rate: 11, Temperature: 36.3 C, O2 Saturation: 99% on nasal cannula 2 L/min Physical Exam: GENERAL: Patient is chronically unwell appearing and in mild distress. Depressed appearing. Dehydrated appearing. EYES: No scleral icterus, unremarkable pupils. ENT: Mucous membranes are dry, no nasal congestion. NECK: No masses appreciated, nomeningismus, trachea is midline. RESPIRATORY: No dyspnea. Clear to auscultation and equal bilaterally. No wheeze, no rhonchi. CARDIOVASCULAR: Tachycardic rate and irregular rhythm.No murmurs, rubs, gallops appreciated. GASTROINTESTINAL: Abdomen soft, non-tender, no peritonitis.Bowel sounds p ositive.No masses appreciated. BACK: No midline tenderness, no CVA tenderness EXTREMITIES: Normal motion all extremities, no cyanosis, no edema. Large erythema/bursitis of the left extensor elbow with tenderness to palpation. NEUROLOGIC: Alert and oriented, no acute motor or sensory deficits, no focal weakness, cranial nerves grossly intact. SKIN: No rash, no jaundice, no diaphoresis. Poor skin turgor. ED Course: Prior Medical Record, Triage/Nursing Notes, Medications, Allergies reviewed by Me Vital Signs: reviewed and remarkable for HTN, tachy Labs:Reviewed and remarkable for +WBC, +LA Interventions: saline lock, nss bolus 2 L IV, Rocephin 2gm IV, Vanco 2gm IV Imaging:see below. left olecranon osteophyte with slight fracture EKG:Per My Interpretation: Indication Weakness: ST 109 bpm, qtc 447. Multiple PACs. No Ischemia. No previous for comparison Reassessments/Times: 1418: The patient was evaluated in room A10. A complete history and physical exam was performed. 1526: Dr. Job Mancilla was paged at this time. 1534: I discussed the patient's case with Dr. Job Mancilla. He will consult the patient and recommends admission. 1537: [facility] at this time. 1539: I reevaluated the patient and he is feeling better after fluids. I spoke to the patient and his sons. They are agreeable to hospitalization. 1527: I [facility] the [facility] He will evaluate the patient for further management. Blood pressure:Elevated - Further Management by Hospitalist. Disposition:Hospitalization Differentials:Differential Diagnosis includes but is not limited to dehydration, stroke, anemia, hypoglycemia, hyponatremia, hypernatremia, urinary tract infection, pneumonia, bronchitis, sepsis, gastroenteritis, additional abdominal pathology, metabolic abnormalities and infections. Medical Decision Makin very unwell appearing male arrives with weakness and falls. He has not been eating last few weeks due to achalasia and has gotten to point where unable to tolerate even his medications. He is breathing comfortably on his normal [place] O2. Vast differential for his worsening weakness considered. He has infection left olecranon bursa with evidence sepsis by labs though no hypotension. With degree of dehydration hydrated with fluid resus. Rocephin/Vanco for sepsis coverage. WBC is 19 in setting of lactic acid elevation which will be treated as sepsis, but may just be related to degree of dehydration. Patient actually improving m uch improved with fluids and HR improving some. Hospitalist and ortho on board. Impression: Sepsis, Weakness, Dehydration, Bursitis, Swallowing Dysfunction Critical Care Time: I have personally spent greater than 30 minutes of critical care time in the direct management of this patient. Sepsis with fluid and abx resus. This was a life/limb threatening event. This includes time spent evaluating patient, direct bedside care, chart review, placing orders, interpretation of diagnostic studies, discussion with consultants, patient, and family members, as well as other required patient management activities. This 30 minutes is in excess of all separately billable procedures. The scribe's documentation has been prepared under my direction and personally reviewed by me in its entirety. I confirm that the note above accurately reflects all work, treatment, procedures, and medical decision making performed by me. Angel Iqbal MD Impression & Plan Sepsis, Weakness, Dehydration, Bursitis, Swallowing dysfunction Past Med/Surg History Medical History Anxiety Atrial fibrillation Chronic back pain Chronic obstructive pulmonary disease stopped inhalers Congestive heart failure Degenerative disc disease Depression GERD (gastroesophageal reflux disease) History of pneumonia (Resolved) Hyperlipidemia Hypertension Kidney stones On home oxygen therapy 3lpm prn Osteoarthritis Peripheral neuropathy bilateral hands & feet Pneumonia Prostate cancer with radiation Sleep apnea non-compliant with cpap Temporal arteritis (Chronic) Weight loss, unintentional Surgical History H/O toe surgery History of arthroscopic surgery of shoulder bilateral History of colonoscopy History of nasal septoplasty History of tonsillectomy Hx of shoulder surgery open left shoulder Family History Other Hypertension Social History Preferred Language: Sami Communication Ability: Effective Civil Service Clerk Required: No Beliefs That Will Affect Care: None marital status: Single Current Living Situation: Alone Other Information That Helps Us Care for You: No Feels Safe at Home: Yes Safety Concerns: Feels Safe At This Time Smoking Status: Former smoker Tobacco Type: cigarettes ; Second Hand Exposure: No ; Hx Alcohol Use: No Hx Substance Use: No Results & Data Vital Signs Vital Signs - 24 hr 08/07/19 14:03 08/07/19 14:21 08/07/19 15:00 Temperature 36.3 C L Temperature Source Oral Pulse Rate 100 H 110 H 99 H Pulse Rate from SpO2 Sensor 97 H 104 H Pulse Rhythm Regular Pulse Strength Normal Respiratory Rate 20 18 16 Respiratory Effort / Characteristics Non-Labored Spontaneous Respiratory Depth Normal Respiratory Pattern Regular Blood Pressure 136/83 122/72 148/93 H Blood Pressure Mean 100 83 109 Blood Pressure Position Sitting Pulse Oximetry 97 97 98 Oxygen Delivery Method Room Air Nasal Cannula Nasal Cannula Oxygen Flow Rate 2 2 Sepsis Recent Fever Within 48 Hours No Sepsis New/Unexplained Change in Mental Status No Sepsis Action Taken by Nursing No Action Required 08/07/19 16:01 08/07/19 16:30 Temperature Temperature Source Pulse Rate 106 H 99 H Pulse Rate from SpO2 Sensor 106 H 99 H Pulse Rhythm Pulse Strength Respiratory Rate 30 H 13 Respiratory Effort / Characteristics Respiratory Depth Respiratory Pattern Blood Pressure 145/83 H 150/90 H Blood Pressure Mean 94 116 Blood Pressure Position Pulse Oximetry 98 97 Oxygen Delivery Method Nasal Cannula Nasal Cannula Oxygen Flow Rate 2 2 Sepsis Recent Fever Within 48 Hours Sepsis New/Unexplained Change in Mental Status Sepsis Action Taken by [facility] Medications Current Medication List: was personally reviewed by me Laboratory Data Attestation: I reviewed the patient's lab results. Result diagrams: 08/07/19 14:38 08/07/19 14:38 Lab Results 08/07/19 08/07/19 08/07/19 Range/Units 14:38 14:38 14:38 WBC 19.45 H (4.8-10.8) K/uL RBC 3.95 L (4.7-6.1) M/uL Hgb 12.9 L (14.0-18.0) g/dL Hct 39.2 L (42-52) % MCV 99.2 (80-100) fL MCH 32.7 (25-34) pg MCHC 32.9 (32-36) g/dL RDW Std Deviation 64.5 H (36.4-46.3) fL RDW Coeff of Melba 17.8 H (11.5-14.5) % Plt Count 276 (130-400) K/uL MPV 10.1 (7.4-10.4) fL Immature Gran % (Auto) 0.4 % Neut % (Auto) 94.6 % Lymph % (Auto) 2.3 % Lamb % (Auto) 2.5 % Eos % (Auto) 0.1 % Baso % (Auto) 0.1 % Immature Gran # (Auto) 0.08 H (0.00-0.02) K/uL Neut # (Auto) 18.42 H (1.4-6.5) K/uL Lymph # (Auto) 0.45 L (1.2-3.4) K/uL Lamb # (Auto) 0.48 (0.11-0.59) K/uL Eos # (Auto) 0.01 (0-0.5) K/uL Baso # (Auto) 0.01 (0-0.2) K/uL Absolute Nucleated RBC 0.02 H (0-0) K/uL Nucleated RBC % (auto) 0.1 % PT 11.4 (9.0-12.0) Seconds INR 1.1 (0.9-1.1) APTT 30.0 (21.0-31.0) Seconds PTT Ratio 1.1 Sodium 136 (136-145) mmol/L Potassium 3.3 L (3.5-5.1) mmol/L Chloride 99 (98-107) mmol/L Carbon Dioxide 32 (21-32) mmol/L Anion Gap 5.0 (3-11) BUN 15 (7-18) mg/dl Creatinine 0.91 (0.6-1.4) mg/dl Est Cr Clr Drug Dosing 86.8 ml/min Est GFR ( Amer) 95.2 Est GFR (Non-Af Amer) 82.2 BUN/Creatinine Ratio 16.4 (10-20) Glucose 152 H (70-99) mg/dl Lactate (0.4-2.0) mmol/L Calcium 9.3 (8.5-10.1) mg/dl Magnesium 2.0 (1.8-2.4) mg/dl Total Bilirubin 1.3 H (0.2-1) mg/dl Direct Bilirubin 0.3 H (0-0.2) mg/dl AST 16 (15-37) U/L ALT 32 (12-78) U/L Alkaline Phosphatase 77 (45-117) U/L Troponin I < 0.015 (0-0.045) ng/ml Total Protein 6.8 (6.4-8.2) gm/dl Albumin 2.8 L (3.4-5.0) gm/dl TSH 1.010 (0.300-4.500) uIu/ml Urine Color Urine Appearance (Clear) Urine pH (4.5-7.5) Ur Specific Harrison (1.000-1.030) Urine Protein (Negative) Urine Glucose (UA) (Negative) Urine Ketones (Negative) Urine Blood (Negative) Urine Nitrite (Negative) Urine Bilirubin (Negative) Urine Urobilinogen (Negative) Ur Leukocyte Esterase (Negative) Urine WBC (Auto) (0-5) /hpf Urine RBC (Auto) (0-4) /hpf U Hyaline Cast (Auto) (0-5) /lpf U Epithel Cells (Auto) (0-5) /lpf Urine Bacteria (Auto) (Negative) 08/07/19 08/07/19 Range/Units 14:38 16:00 WBC (4.8-10.8) K/uL RBC (4.7-6.1) M/uL Hgb (14.0-18.0) g/dL Hct (42-52) % MCV (80-100) fL MCH (25-34) pg MCHC (32-36) g/dL RDW Std Deviation (36.4-46.3) fL RDW Coeff of Melba (11.5-14.5) % Plt Count (130-400) K/uL MPV (7.4-10.4) fL Immature Gran % (Auto) % Neut % (Auto) % Lymph % (Auto) % Lamb % (Auto) % Eos % (Auto) % Baso % (Auto) % Immature Gran # (Auto) (0.00-0.02) K/uL Neut # (Auto) (1.4-6.5) K/uL Lymph # (Auto) (1.2-3.4) K/uL Lamb # (Auto) (0.11-0.59) K/uL Eos # (Auto) (0-0.5) K/uL Baso # (Auto) (0-0.2) K/uL Absolute Nucleated RBC (0-0) K/uL Nucleated RBC % (auto) % PT (9.0-12.0) Seconds INR (0.9-1.1) APTT (21.0-31.0) Seconds PTT Ratio Sodium (136-145) mmol/L Potassium (3.5-5.1) mmol/L Chloride (98-107) mmol/L Carbon Dioxide (21-32) mmol/L Anion Gap (3-11) BUN (7-18) mg/dl Creatinine (0.6-1.4) mg/dl Est Cr Clr Drug Dosing ml/min Est GFR ( Amer) Est GFR (Non-Af Amer) BUN/Creatinine Ratio (10-20) Glucose (70-99) mg/dl Lactate 2.5 H* (0.4-2.0) mmol/L Calcium (8.5-10.1) mg/dl Magnesium (1.8-2.4) mg/dl Total Bilirubin (0.2-1) mg/dl Direct Bilirubin (0-0.2) mg/dl AST (15-37) U/L ALT (12-78) U/L Alkaline Phosphatase (45-117) U/L Troponin I (0-0.045) ng/ml Total Protein (6.4-8.2) gm/dl Albumin (3.4-5.0) gm/dl TSH (0.300-4.500) uIu/ml Urine Color Yellow Urine Appearance Clear (Clear) Urine pH 8.0 H (4.5-7.5) Ur Specific Harrison 1.015 (1.000-1.030) Urine Protein Negative (Negative) Urine Glucose (UA) Negative (Negative) Urine Ketones Negative (Negative) Urine Blood 2+ H (Negative) Urine Nitrite Negative (Negative) Urine Bilirubin Negative (Negative) Urine Urobilinogen Negative (Negative) Ur Leukocyte Esterase Negative (Negative) Urine WBC (Auto) 1-5 (0-5) /hpf Urine RBC (Auto) 10-30 H (0-4) /hpf U Hyaline Cast (Auto) 1-5 (0-5) /lpf U Epithel Cells (Auto) 20-30 H (0-5) /lpf Urine Bacteria (Auto) Negative (Negative) Administered Medications Vancomycin HCl 2,000 mg/ (Sodium Chloride) 540 mls @ 200 mls/hr IV NOW ONE Stop: 08/07/19 18:14 Last Infusion: 08/07/19 17:48 Dose: 200 mls/hr Documented by: [id number] Infusion: 08/07/19 17:25 Dose: 0 mls/hr Documented by: [id number] Admin: 08/07/19 16:24 Dose: 200 mls/hr Documented by: [id number] Discontinued Medications Sodium Chloride (Nss 1000ml) 1,000 mls @ 999 mls/hr IV .Q1H1M ONE Stop: 08/07/19 15:23 Last Infusion: 08/07/19 16:03 Dose: 0 mls/hr Documented by: [id number] Admin: 08/07/19 15:00 Dose: 999 mls/hr Documented by: [id number] Sodium Chloride (Nss 1000ml) 1,000 mls @ 999 mls/hr IV .Q1H1M ONE Stop: 08/07/19 16:33 Last Infusion: 08/07/19 17:07 Dose: 0 mls/hr Documented by: [id number] Admin: 08/07/19 16:00 Dose: 999 mls/hr Documented by: [id number] Ceftriaxone Sodium (Rocephin) 2,000 mg in 70 mls @ 140 mls/hr IV NOW STA Stop: 08/07/19 16:02 Last Infusion: 08/07/19 17:07 Dose: 0 mls/hr Documented by: [id number] Admin: 08/07/19 16:25 Dose: 140 mls/hr Documented by: [id number] Imaging Data Radiologist's Impression: Radiology results as stated below per my review and the radiologist's interpretation: XR chest 1V portable CLINICAL HISTORY: 74 years-old Male presenting with weakness. TECHNIQUE: Portable upright AP view of the chest was obtained. COMPARISON: 05/31/[address] from 06/03/2019. FINDINGS: Atherosclerosis of the aortic arch. Cardiac silhouette normal in size. Minimal basilar opacities. No pleural effusion or pneumothorax. Degenerative changes of the thoracic spine. Anchors noted in the left humeral head. Upper abdomen normal. IMPRESSION: 1. Minimal basilar opacities likely atelectasis or scarring. No convincing evidence of acute cardiopulmonary disease. ACT 112: Negative or not required by law. Electronically signed by: Bhavik Richardson M.D. 08/07/2019 2:59 PM XR elbow LT min 3V routine CLINICAL HISTORY: 74 years-old Male presenting with left elbow swelling. TECHNIQUE: Frontal, oblique, and lateral views of the left elbow were obtained. COMPARISON: None. FINDINGS: Diffuse soft tissue swelling at the elbow. Enthesophytes at the origin of the common flexor and extensor tendons. Elbow joint congruent with preserved joint space. Prominent enthesophyte at the insertion of the triceps tendon with a fracture of the enthesophyte evident. Overlying soft tissue swelling focally. No acute fracture or malalignment. No advanced degenerative change. No radiographic evidence of an elbow joint effusion. IMPRESSION: 1. Fractured enthesophyte at the insertion of the triceps tendon. 2. Contusion over the olecranon versus traumatic bursitis. ACT 112: Negative or not required by law. Electronically signed by: Bhavik Richardson M.D. 08/07/2019 3:[address] head/brain wo con CLINICAL HISTORY: 74 years-old Male with Weakness. Acute weakness TECHNIQUE: Multiple axial CT images of the head were obtained without contrast. A dose lowering technique was utilized adhering to the principles of ALARA. CT DOSE: 537.48 mGy.cm COMPARISON: Head CT 06/03/2019 FINDINGS: No acute intracranial hemorrhage, midline shift, intracranial mass, hydrocephalus, territorial ischemia or abnormal extra-axial collection. Age- related involutional changes. Mild patchy white matter hypodensities suggest chronic microvascular ischemic disease. Cerebral vascular calcifications are noted. The calvarium is intact. The paranasal sinuses, mastoid air cells, and middle ear cavities are clear. IMPRESSION: No acute intracranial abnormality. ACT 112: Negative or not required by law. The above report was generated using voice recognition software. It may contain grammatical, syntax or spelling errors. Electronically signed by: Nikko Larose M.D. 08/07/2019 3:22 PM Blood Pressure Blood Pressure Findings: Elevated blood pressure Blood Pressure Disposition: further management by hospitalist Discharge Plan Visit Data *Final* Discharge Date/Time: 08/07/19 17:11 Chief Complaint: Illness Stated Complaint: UNABLE TO CONTROL URINATION,CONFUSION,VOMITING ED Provider: Angel Iqbal Discharge Problem: Sepsis, Weakness, Dehydration, Bursitis, Swallowing dysfunction Patient Disposition: Admitted As Inpatient Discharge Instructions Interventions: ED Discharge Assessment Last Done: 08/07/19 17:11 Discharge Problem: Sepsis Qualifiers: Sepsis type: sepsis due to unspecified organism Sepsis acute organ dysfunction status: unspecified Qualified Code(s): A41.9 - Sepsis, unspecified organism Bursitis Qualifiers: Bursitis location: elbow Elbow bursitis location: unspecified Laterality: left Qualified Code(s): M70.32 - Other bursitis of elbow, left elbow The scribe's documentation has been prepared under my direction and personally reviewed by me in its entirety. I confirm that the note above accurately reflects all work, treatment, procedures, and medical decision making performed by me.
[2019-08-07] MEDS: NSS + 20MEQ KCL 20 MEQ/1,000 ML BAG IV SCH (18:52)
[2019-08-07] MEDS: SIMVASTATIN 40 MG TAB PO SCH (20:31)
[2019-08-07] MEDS: ENOXAPARIN INJ 40 MG/0.4 ML SYR SQ SCH (20:31)
[2019-08-07] MEDS: PANTOprazole 40 MG TAB PO SCH (20:31)
[2019-08-07] MEDS: FOLIC ACID 1 MG TAB PO SCH (20:32)
[2019-08-07] MEDS: SPIRONOLACTONE 25 MG TAB PO SCH (20:32)
--- NOTE | 2019-08-07 23:14 | Consultation Report ---
DATE OF CONSULTATION: 08/07/2019 ORTHOPEDIC CONSULTATION CHIEF COMPLAINT: Left elbow redness and swelling. HISTORY OF PRESENT ILLNESS: This 74-year-old white male was seen today in the ED for orthopedic consultation for his left elbow. The patient states he fell 3 days ago while at home. He landed on his left elbow. Since then, his left elbow has become red, swollen, and painful. His son is concerned that it may be infected. There have been no fevers. Redness has increased. Discomfort with motion has increased. Left hand dominant. The patient was evaluated in the ED today and radiographic imaging of the elbow was obtained. He denies any numbness or tingling. No prior history of elbow olecranon bursitis. No other complaints. The patient does have a history of dementia as well as COPD, CHF, and swallowing issues. He has not taken any of his normal medications for the last 5 days. No history of diabetes. PAST MEDICAL HISTORY: Significant for anxiety, atrial fibrillation, COPD, CHF, degenerative disc disease, depression, GERD, elevated lipids, hypertension, kidney stones, osteoarthritis, prostate cancer, chronic pulmonary aspiration, achalasia, history of pneumonia, acute kidney injury, history of temporal arteritis, and dementia. PREVIOUS SURGERIES: Colonoscopy, tonsillectomy, shoulder surgery, foot surgery, nasal septoplasty. FAMILY HISTORY: Hypertension. SOCIAL HISTORY: The patient is single and lives alone. Former smoker. Former substance abuser. Uses marijuana currently. ALLERGIES: NKDA. CURRENT MEDICATIONS: Omeprazole, aspirin, Wellbutrin, clonazepam, docusate sodium, folic acid, furosemide, hyoscyamine sulfate, methotrexate, Percocet, pantoprazole, potassium, prednisone, simvastatin, spironolactone, tamsulosin, venlafaxine. PHYSICAL EXAMINATION: VITAL SIGNS: Temperature 36.3, pulse 100, BP 136/83, respiratory rate 20, O2 sat 97% on room air. GENERAL: Alert and oriented. Pleasant, conversant. Unable to provide most of his medical history. This is obtained from his sons. Well-developed, well-nourished elderly white male in no acute distress. Lying on a bed. Alert and oriented. Obese. SKIN: Warm and dry with good turgor. No rashes. The patient has erythema around the olecranon of the left elbow. Small scab is present. It is superficial. There is mild warmth. Induration measures approximately 10-12 cm in diameter. Area is mildly tender to touch. Mildly edematous bursa with an estimate of 3-4 mL of fluid retained. No lymphangitis. MUSCULOSKELETAL: The patient has no discomfort with palpation of his shoulder, biceps, triceps, forearm, wrist, or digits. He does have mild discomfort with palpation over the left elbow olecranon and bursa. Full terminal extension. Flexion to greater than 125 degrees. Equal symmetric to the noninvolved side. Full supination and pronation. No pain with palpation over the radial head. Full range of motion of the wrist and digits. Thumb circumduction and opposition are intact. The patient is able to cross his fingers. Strength is 5/5 for resisted flexion, extension, and abduction of the digits. NEUROLOGIC: Gross sensation is intact across the left arm by soft touch. Radial, median, and ulnar nerve functions are clearly intact for sensory and motor. Peripheral pulses are 2+. DATA: Radiographic imaging obtained earlier today shows small bone spur present at the insertion of the triceps tendon at the olecranon. There is currently a fracture present. It is unclear if this is new or old. Films were reviewed by me and read by radiology. LABORATORY DATA: White count of 19.45, hemoglobin 12.9, hematocrit 39.2, platelets 276,000. Elevation of neutrophil bands. PRP is unremarkable. Mildly elevated glucose of 152. Lactate is elevated significantly at 2.5. Low magnesium. Total bilirubin elevated at 1.3 with a direct bilirubin mildly elevated at 0.3. Albumin is low at 2.8. IMPRESSION: Left elbow olecranon bursitis. PLAN: The patient and sons were educated regarding today's findings. Conservative care measures were discussed. The patient does have a significant elevation in his white count. There is no clear indication at this time that his olecranon bursitis is infectious and possibility of inflammatory was discussed with him and his sons. He has already been treated with IV vancomycin and IV Rocephin in the ED. The patient will be admitted to the medicine service and orthopedics will follow closely for observation and further evaluation. If his olecranon should become more red, temperatures develop, or more fluid should develop in the bursa, he will require either aspiration or incision and drainage. For now, we will watch closely and hopefully it will resolve with the antibiotic regimen. The patient was observed to be grinding his olecranon into the bed on a repetitive basis. Because of this, he was placed in a crate foam and an Jimmie wrap for protection of the bursa. The patient was seen in conjunction with Dr. Walsh, who also evaluated the patient today in the ED and concurred with today's diagnosis and treatment plan. I, Dr. Walsh, saw and examined the patient with my PA and discussed the management with my PA. I reviewed my PAs note and agree with the documented findings and the plan of care I developed. EMILIA
[2019-08-08] MEDS: NSS + 20MEQ KCL 20 MEQ/1,000 ML BAG IV SCH ×2 (05:56→17:46)
--- NOTE | 2019-08-08 08:36 | Hospitalist Progress Note ---
Date of Service August 08, 2019 Assessment & Plan (1) Failure to thrive: * Failure to thrive is likely secondary to ongoing malnutrition and deconditioning. Patient has significant achalasia which sounds to be worsening by history. Outpatient follow up with [facility] scheduled for 08/15 for esophageal dilation. WBC elevation on admission likely secondary to remote steroid use for temporal arteritis, although xray of right foot with concerns for osteo * Continue IVF -- monitor volume status as patient with diastolic CHF * Liquid diet as tolerated * PT/OT * CM following -- ref sent to [facility] -- they will have bed, earliest 08/10 * CRP elevated at 11.10, ESR 62 -- of note, patient with temporal arteritis and on methotrexate and prednisone * Procalcitonin 0.06, TSH 1.010 wnl (2) Right foot ulcer: * Right distal third toe * X- ray with concerns for osteo -- appreciate ortho input * Wound RN consult * ID consult (3) Achalasia: * Patient is known locally by Dr. Segura, will consult for further recommendations. * Patient does have a standing appointment at [facility], depending on progress may need to consider transfer to specialist for dilation sooner. * Liquid diet * Continue pantoprazole * ASA held for possible procedure (4) Acute dehydration: * Per laboratory work, dehydration is likely mild. Lactate 2.5, however down to 1.8 today * IVF * Hold lasix for now * Monitor volume status (5) Chronic pulmonary aspiration: * Secondary to worsening Achalasia * Antibiotics held initially, but per rec from ortho, restarted vanco/ceftriaxone (6) Hypokalemia: * K 3.3 on admission -- given IV repletion of potassium with IV fluids. * K 3.4 today -- will give 20mg elixer today * Continue to monitor (7) Traumatic bursitis: * Ortho consult -- appreciate input * Continue IV abx vanco/ceftriaxone * Continue eggcrate for protection (8) Macrocytosis: * Likely secondary to methotrexate use -- patient on folic acid 1mg BID * Folate and B12 levels in AM * Continue to monitor (9) Temporal arteritis: * Follows locally with Dr. Melchor and Ophthamlology * Had been on 20mg prednisone but did not receive yesterday -- patient states he was supposed to be tapered to 10mg but patient unsure of date when he is supposed to decrease -- will add 20mg today and review outpatient * Continue methotrexate as ordered (10) Diastolic CHF: * Per history, secondary to cor pulmonale * Monitor volume status * Lasix on hold in setting of dehydration * Will hold spironolactone today * Continue to monitor BP (11) Chronic respiratory failure with hypoxia: * Patient had been weaned off O2 in the past * Currently 95% on 2L * If remains on O2, may require 2-step prior to discharge (12) Severe protein-calorie malnutrition: * Secondary to worsening Achalasia * Albumin 2.5 today * Boost supplements (13) Hematuria: * UA on admission with 2+ blood, 10-30 RBC * No urinary symptoms currently, although patient with remote history of 10mm stone and sepsis admission in May 2019 * H/h stable at 12.2/37.1 * Continue to monitor -- will need outpatient follow up with Urology (14) Elevated bilirubin: * T bili 1.3 on admission * Secondary to dehydration as patient with improvement to 0.9 today (15) Sleep apnea: * Per patient, has diagnosis but has been unable to tolerate CPAP (16) Depressive disorder: * Patient initially received both wellbutrin 150mg as well as effexor 225mg this morning * When reviewing medications with patient, he only takes 225mg effexor daily * Discontinue wellbutrin (17) DVT prophylaxis: * SCDs * Chemoproph held for possible procedure Dispo: possible discharge to [facility] (earlier 08/10) once medically stable, with close follow up and appointment 08/15 for esophageal dilation with [facility] Subjective Patient evaluated this morning. States he has pain of both his left elbow as well as right foot. States he has something on his toe but is unaware of how long it has been there. Denies history of diabetes or injury to foot. Did fall three or four days ago on left elbow, but denies any cut/blood following fall or LOC. Rates pain 7/10 in his shoulder, worsened with movement. Plans for follow up August 15 with [facility] for esophageal dilation for newly diagnosed Achlasia. Review of Systems Constitutional: + fatigue, + weakness, + anorexia and + weight loss; no fever, no chills, no sweats and no malaise Ear, Nose, Mouth, Throat: + dysphagia Respiratory: no chest congestion and no wheezing Cardiovascular: no chest pain and no palpitations Gastrointestinal: + belching, + bloating, + early satiety, + nausea and + vomiting; no abdominal pain, no heartburn, no coffee ground emesis, no change in bowel habits, no change in stools, no constipation, no diarrhea/loose stools and no fecal incontinence Genitourinary: + difficulty urinating; no urinary frequency, no post-void dribbling, no hematuria and no genital pain Musculoskeletal: + joint pain Physical Exam Constitutional: WD/WN, vitals as above Eyes: + anicteric sclerae and PERRL Neck: trachea midline, no thyromegaly Respiratory: normal respiratory effort, lungs clear to auscultation Cardiovascular: Rate/Rhythm: regular rate and regular rhythm Heart Sounds: normal S1 and normal S2; no murmur and no cardiac rub Extremities: no edema Gastrointestinal (Abdomen): normal bowel sounds, soft, nontender, no hepatosplenomegaly Musculoskeletal: Fluid collection within olecranon bursa. Erythematous and warm to the touch. Tender to palpation. Point tenderness of upper aspect of olecranon. Left arm in eggcrate/wrap. No evidence of drainage. Skin: Dried hard callused skin dorsal aspect of R 3rd toe with dried blood. Non-tender. Dry, flaky skin. Sensation intact. Neurologic: PERRL, EOMI, accommodation nl, no face palsy, no dysarthria Psychiatric: A+Ox3, euthymic affect Lymphatic: no cervical or axillary lymphadenopathy Results & Data Vital Signs (Past 12 Hours) Vital Signs Temp Pulse Resp BP Pulse Ox 08/08/19 07:52 37 C 71 16 129/78 95 08/07/19 23:00 37.1 C 95 H 16 143/80 H 93 Laboratory Results 08/08/19 08/08/19 08/08/19 Range/Units 08:27 08:27 08:27 WBC (4.8-10.8) K/uL RBC (4.7-6.1) M/uL Hgb (14.0-18.0) g/dL Hct (42-52) % MCV (80-100) fL MCH (25-34) pg MCHC (32-36) g/dL RDW Std Deviation (36.4-46.3) fL RDW Coeff of Melba (11.5-14.5) % Plt Count (130-400) K/uL MPV (7.4-10.4) fL Immature Gran % (Auto) % Neut % (Auto) % Lymph % (Auto) % [place] % (Auto) % Eos % (Auto) % Baso % (Auto) % Immature Gran # (Auto) (0.00-0.02) K/uL Neut # (Auto) (1.4-6.5) K/uL Lymph # (Auto) (1.2-3.4) K/uL [place] # (Auto) (0.11-0.59) K/uL Eos # (Auto) (0-0.5) K/uL Baso # (Auto) (0-0.2) K/uL ESR 62 H (0-14) mm/hr Sodium (136-145) mmol/L Potassium (3.5-5.1) mmol/L Chloride (98-107) mmol/L Carbon Dioxide (21-32) mmol/L Anion Gap (3-11) BUN (7-18) mg/dl Creatinine (0.6-1.4) mg/dl Est Cr Clr Drug Dosing ml/min Est GFR ( Amer) Est GFR (Non-Af Amer) BUN/Creatinine Ratio (10-20) Glucose (70-99) mg/dl Lactate 1.8 (0.4-2.0) mmol/L Calcium (8.5-10.1) mg/dl Total Bilirubin (0.2-1) mg/dl AST (15-37) U/L ALT (12-78) U/L Alkaline Phosphatase (45-117) U/L Troponin I (0-0.045) ng/ml C-Reactive Protein 11.10 H (0-0.29) mg/dl Total Protein (6.4-8.2) gm/dl Albumin (3.4-5.0) gm/dl Globulin (2.5-4.0) gm/dl Albumin/Globulin Ratio (0.9-2) Procalcitonin (0-0.5) ng/ml TSH (0.300-4.500) uIu/ml Urine Color Urine Appearance (Clear) Urine pH (4.5-7.5) Ur Specific [place] (1.000-1.030) Urine Protein (Negative) Urine Glucose (UA) (Negative) Urine Ketones (Negative) Urine Blood (Negative) Urine Nitrite (Negative) Urine Bilirubin (Negative) Urine Urobilinogen (Negative) Ur Leukocyte Esterase (Negative) Urine WBC (Auto) (0-5) /hpf Urine RBC (Auto) (0-4) /hpf U Hyaline Cast (Auto) (0-5) /lpf U Epithel Cells (Auto) (0-5) /lpf Urine Bacteria (Auto) (Negative) 08/08/19 08/08/19 08/08/19 Range/Units 08:27 08:27 08:27 WBC 14.78 H (4.8-10.8) K/uL RBC 3.69 L (4.7-6.1) M/uL Hgb 12.2 L (14.0-18.0) g/dL Hct 37.1 L (42-52) % MCV 100.5 H (80-100) fL MCH 33.1 (25-34) pg MCHC 32.9 (32-36) g/dL RDW Std Deviation 64.8 H (36.4-46.3) fL RDW Coeff of Melba 18.0 H (11.5-14.5) % Plt Count 265 (130-400) K/uL MPV 10.1 (7.4-10.4) fL Immature Gran % (Auto) 0.6 % Neut % (Auto) 90.0 % Lymph % (Auto) 5.2 % [place] % (Auto) 3.7 % Eos % (Auto) 0.4 % Baso % (Auto) 0.1 % Immature Gran # (Auto) 0.09 H (0.00-0.02) K/uL Neut # (Auto) 13.30 H (1.4-6.5) K/uL Lymph # (Auto) 0.77 L (1.2-3.4) K/uL [place] # (Auto) 0.54 (0.11-0.59) K/uL Eos # (Auto) 0.06 (0-0.5) K/uL Baso # (Auto) 0.02 (0-0.2) K/uL ESR (0-14) mm/hr Sodium 143 D (136-145) mmol/L Potassium 3.4 L (3.5-5.1) mmol/L Chloride 108 H (98-107) mmol/L Carbon Dioxide 30 (21-32) mmol/L Anion Gap 5.0 (3-11) BUN 11 (7-18) mg/dl Creatinine 0.80 (0.6-1.4) mg/dl Est Cr Clr Drug Dosing 98.8 ml/min Est GFR ( Amer) 101.3 Est GFR (Non-Af Amer) 87.4 BUN/Creatinine Ratio 13.7 (10-20) Glucose 105 H (70-99) mg/dl Lactate (0.4-2.0) mmol/L Calcium 8.6 (8.5-10.1) mg/dl Total Bilirubin 0.9 (0.2-1) mg/dl AST 16 (15-37) U/L ALT 30 (12-78) U/L Alkaline Phosphatase 71 (45-117) U/L Troponin I (0-0.045) ng/ml C-Reactive Protein (0-0.29) mg/dl Total Protein 6.0 L (6.4-8.2) gm/dl Albumin 2.5 L (3.4-5.0) gm/dl Globulin 3.5 (2.5-4.0) gm/dl Albumin/Globulin Ratio 0.7 L (0.9-2) Procalcitonin 0.06 (0-0.5) ng/ml TSH (0.300-4.500) uIu/ml Urine Color Urine Appearance (Clear) Urine pH (4.5-7.5) Ur Specific [place] (1.000-1.030) Urine Protein (Negative) Urine Glucose (UA) (Negative) Urine Ketones (Negative) Urine Blood (Negative) Urine Nitrite (Negative) Urine Bilirubin (Negative) Urine Urobilinogen (Negative) Ur Leukocyte Esterase (Negative) Urine WBC (Auto) (0-5) /hpf Urine RBC (Auto) (0-4) /hpf U Hyaline Cast (Auto) (0-5) /lpf U Epithel Cells (Auto) (0-5) /lpf Urine Bacteria (Auto) (Negative) 08/07/19 08/07/19 08/07/19 Range/Units 16:00 14:38 14:38 WBC (4.8-10.8) K/uL RBC (4.7-6.1) M/uL Hgb (14.0-18.0) g/dL Hct (42-52) % MCV (80-100) fL MCH (25-34) pg MCHC (32-36) g/dL RDW Std Deviation (36.4-46.3) fL RDW Coeff of Melba (11.5-14.5) % Plt Count (130-400) K/uL MPV (7.4-10.4) fL Immature Gran % (Auto) % Neut % (Auto) % Lymph % (Auto) % [place] % (Auto) % Eos % (Auto) % Baso % (Auto) % Immature Gran # (Auto) (0.00-0.02) K/uL Neut # (Auto) (1.4-6.5) K/uL Lymph # (Auto) (1.2-3.4) K/uL [place] # (Auto) (0.11-0.59) K/uL Eos # (Auto) (0-0.5) K/uL Baso # (Auto) (0-0.2) K/uL ESR (0-14) mm/hr Sodium (136-145) mmol/L Potassium (3.5-5.1) mmol/L Chloride (98-107) mmol/L Carbon Dioxide (21-32) mmol/L Anion Gap (3-11) BUN (7-18) mg/dl Creatinine (0.6-1.4) mg/dl Est Cr Clr Drug Dosing ml/min Est GFR ( Amer) Est GFR (Non-Af Amer) BUN/Creatinine Ratio (10-20) Glucose (70-99) mg/dl Lactate 2.5 H* (0.4-2.0) mmol/L Calcium (8.5-10.1) mg/dl Total Bilirubin 1.3 H (0.2-1) mg/dl AST (15-37) U/L ALT (12-78) U/L Alkaline Phosphatase 77 (45-117) U/L Troponin I < 0.015 (0-0.045) ng/ml C-Reactive Protein (0-0.29) mg/dl Total Protein 6.8 (6.4-8.2) gm/dl Albumin (3.4-5.0) gm/dl Globulin (2.5-4.0) gm/dl Albumin/Globulin Ratio (0.9-2) Procalcitonin (0-0.5) ng/ml TSH 1.010 (0.300-4.500) uIu/ml Urine Color Yellow Urine Appearance Clear (Clear) Urine pH 8.0 H (4.5-7.5) Ur Specific [place] 1.015 (1.000-1.030) Urine Protein Negative (Negative) Urine Glucose (UA) Negative (Negative) Urine Ketones Negative (Negative) Urine Blood 2+ H (Negative) Urine Nitrite Negative (Negative) Urine Bilirubin Negative (Negative) Urine Urobilinogen Negative (Negative) Ur Leukocyte Esterase Negative (Negative) Urine WBC (Auto) 1-5 (0-5) /hpf Urine RBC (Auto) 10-30 H (0-4) /hpf U Hyaline Cast (Auto) 1-5 (0-5) /lpf U Epithel Cells (Auto) 20-30 H (0-5) /lpf Urine Bacteria (Auto) Negative (Negative) Diagnostic Findings XR elbow LT min 3V routine CLINICAL HISTORY: 74 years-old Male presenting with left elbow swelling. TECHNIQUE: Frontal, oblique, and lateral views of the left elbow were obtained. COMPARISON: None. FINDINGS: Diffuse soft tissue swelling at the elbow. Enthesophytes at the origin of the common flexor and extensor tendons. Elbow joint congruent with preserved joint space. Prominent enthesophyte at the insertion of the triceps tendon with a fracture of the enthesophyte evident. Overlying soft tissue swelling focally. No acute fracture or malalignment. No advanced degenerative change. No radiographic evidence of an elbow joint effusion. IMPRESSION: 1. Fractured enthesophyte at the insertion of the triceps tendon. 2. Contusion over the olecranon versus traumatic bursitis. XR foot RT min 3V routine HISTORY: 74 years-old Male Right 3rd toe ulcer chronic ulcer of the right third toe COMPARISON: Bone scan 07/06/2014 TECHNIQUE: 3 views of the right foot FINDINGS: There is marked sclerosis with bony remodeling of the first greater than second metatarsal phalangeal joints compatible with advanced osteoarthritis. Mild bony fragmentation surrounding the first MTP joint. Moderate multifocal interphalangeal osteoarthritis. Mostly mild multifocal osteophyte is of the midfoot and hindfoot with moderate sized plantar enthesophyte. Vascular calcifications are noted. There is mild soft tissue swelling of the forefoot. There is a bony defect with cortical indistinctness involving the distal aspect of the third distal phalanx. Mild associated soft tissue swelling. IMPRESSION: 1. Bony erosive changes involving the distal aspect of the third distal phalanx are suspicious findings for osteomyelitis. Correlate with physical exam findings. 2. Advanced degenerative changes of the first MTP joint with chronic remodeling. PG Care Time/CCT Total # of Minutes Spent Total Time Spent with Patient: Total time spent is greater than 50% in coordination of care (as documented) at patient's floor/unit and/or counseling patient:
[2019-08-08 08:51] LABS: Basophils # (auto) 0.02 K/uL (0-0.2); Basophils % (auto) 0.1 %; Eosinophils # (auto) 0.06 K/uL (0-0.5); Eosinophils % (auto) 0.4 %; Hematocrit (blood only) 37.1 % (42-52); Hemoglobin 12.2 g/dL (14.0-18.0); Immature Granulocytes # (auto) 0.09 K/uL (0.00-0.02); Immature Granulocytes % (auto) 0.6 %; Lymphocytes # (auto) 0.77 K/uL (1.2-3.4); Lymphocytes % (auto) 5.2 %; Mean Corpuscular Hemoglobin 33.1 pg (25-34); Mean Corpuscular Hgb Conc 32.9 g/dL (32-36); Mean Corpuscular Volume 100.5 fL (80-100); Mean Platelet Volume 10.1 fL (7.4-10.4); Monocytes # (auto) 0.54 K/uL (0.11-0.59); Monocytes % (auto) 3.7 %; Platelet Count 265 K/uL (130-400); RDW Standard Deviation 64.8 fL (36.4-46.3); Red Blood Count 3.69 M/uL (4.7-6.1); White Blood Count 14.78 K/uL (4.8-10.8)
--- NOTE | 2019-08-08 08:52 | Orthopedic Progress Note ---
Date of Service August 08, 2019 Assessment & Plan (1) Traumatic bursitis: Olecranon bursitis of his left elbow. We will plan to continue present conservative treatment. Recommend continuation of IV antibiotics. We will continue the eggcrate for protection from repetitive pressure or rubbing his left elbow. He does seem to think that that is helping. Encouraged elevation. We will continue to watch and monitor. Will discuss findings with Dr. Walsh later this morning. We will continue to follow. I, Dr. Walsh, saw and examined the patient and discussed the management with my PA. I reviewed my PAs note and agree with the documented findings and the plan of care I developed. Present on Admission?: Yes (2) Toe ulcer, right: Also will discuss new findings of his right third toe. We discussed plan of action with Dr. Walsh but most likely will obtain an x-ray of the right third toe and possibly wound care consult versus podiatry consult. Orders will be placed once treatment plan discussed with Dr. Walsh. I, Dr. Walsh, saw and examined the patient and discussed the management with my PA. I reviewed my PAs note and agree with the documented findings and the plan of care I developed. I did review the radiographs, we will continue to monitor. May utilize warm soaks. We will consult wound care. May follow-up with podiatry as an outpatient. Present on Admission?: Yes Subjective As noted per my PA, foam has been helpful for his left elbow. Patient states elbow still hurts with any pressure on his elbow. States no changes from yesterday. But does feel that the great has helped a little bit with the pressure soreness. Denies any pain elsewhere in that left upper extremity. Denies any fevers or chills. Also states that he "wants to show me something". He had me take his sock off of his right foot and he has a small, hard callus with some dried blood on the tip of his right third toe. He states that he does not know how long it is been there. He states he cannot see it very well. He has not tried to put any type of dressings on it or treat it. He does not recall any known injury. Has no pain in the toe with walking. Has had no treatment for this. Review of Systems Review of Systems: All systems reviewed & are unremarkable except as noted in HPI & below Physical Exam Musculoskeletal: Exam of his left elbow: He does have a small amount of fluid within his olecranon bursa. He has a small superficial abrasion with dried scab over it. Nontender with palpation over that abrasion. He does have erythema about his olecranon and is point tender with palpation mainly over the tip of the olecranon. He does have some surrounding erythema of about 10 cm mainly on the upper aspect of the olecranon today. It does seem to be that he has some decreasing erythema the proximal forearm. He is nontender with palpation of the proximal ulna. He is nontender throughout his left forearm. There is no surrounding lymphedema. There is no open draining wounds or blisters. He tolerates full extension of his left elbow with flexion to about 125 degrees comfortably today. Tolerates gentle shoulder and wrist range of motion. Exam of his right third toe: He has a dried hard callused skin on the tip of the right third toe. He has a fungal nail. There is some dried blood or dark tissue along the base of the nail bed to the lateral aspect of the toe. The very tip of the toe there is some dried blood with some hard callus tissue. There may be a small punctate subacute wound, no active drainage or bleeding. It does not seem to be tender to palpation. He tolerates gentle motion of the toe. Skin is very dry of his right foot. Dorsalis pedis pulses palpable. Some mild erythema of bilateral lower extremities. No significant edema of his right leg. Neurologic: Sensation seems to be intact of his left elbow with normal motor and sensory function of the radian median and ulnar nerves. Sensation also seems to be intact of his right foot. With normal motor and sensory function. Results & Data Vital Signs (Past 12 Hours) Vital Signs Temp Pulse Resp BP Pulse Ox 08/08/19 07:52 37 C 71 16 129/78 95 08/07/19 23:00 37.1 C 95 H 16 143/80 H 93 Laboratory Results 08/07/19 08/07/19 08/07/19 Range/Units 16:00 14:38 14:38 WBC (4.8-10.8) K/uL RBC (4.7-6.1) M/uL Hgb (14.0-18.0) g/dL Hct (42-52) % MCV (80-100) fL MCH (25-34) pg MCHC (32-36) g/dL RDW Std Deviation (36.4-46.3) fL RDW Coeff of Melba (11.5-14.5) % Plt Count (130-400) K/uL MPV (7.4-10.4) fL Immature Gran % (Auto) % Neut % (Auto) % Lymph % (Auto) % [place] % (Auto) % Eos % (Auto) % Baso % (Auto) % Immature Gran # (Auto) (0.00-0.02) K/uL Neut # (Auto) (1.4-6.5) K/uL Lymph # (Auto) (1.2-3.4) K/uL [place] # (Auto) (0.11-0.59) K/uL Eos # (Auto) (0-0.5) K/uL Baso # (Auto) (0-0.2) K/uL Absolute Nucleated RBC (0-0) K/uL Nucleated RBC % (auto) % PT (9.0-12.0) Seconds INR (0.9-1.1) APTT (21.0-31.0) Seconds PTT Ratio Sodium 136 (136-145) mmol/L Potassium 3.3 L (3.5-5.1) mmol/L Chloride 99 (98-107) mmol/L Carbon Dioxide 32 (21-32) mmol/L Anion Gap 5.0 (3-11) BUN 15 (7-18) mg/dl Creatinine 0.91 (0.6-1.4) mg/dl Est Cr Clr Drug Dosing 86.8 ml/min Est GFR ( Amer) 95.2 Est GFR (Non-Af Amer) 82.2 BUN/Creatinine Ratio 16.4 (10-20) Glucose 152 H (70-99) mg/dl Lactate 2.5 H* (0.4-2.0) mmol/L Calcium 9.3 (8.5-10.1) mg/dl Magnesium 2.0 (1.8-2.4) mg/dl Total Bilirubin 1.3 H (0.2-1) mg/dl Direct Bilirubin 0.3 H (0-0.2) mg/dl AST 16 (15-37) U/L ALT 32 (12-78) U/L Alkaline Phosphatase 77 (45-117) U/L Troponin I < 0.015 (0-0.045) ng/ml Total Protein 6.8 (6.4-8.2) gm/dl Albumin 2.8 L (3.4-5.0) gm/dl TSH 1.010 (0.300-4.500) uIu/ml Urine Color Yellow Urine Appearance Clear (Clear) Urine pH 8.0 H (4.5-7.5) Ur Specific [place] 1.015 (1.000-1.030) Urine Protein Negative (Negative) Urine Glucose (UA) Negative (Negative) Urine Ketones Negative (Negative) Urine Blood 2+ H (Negative) Urine Nitrite Negative (Negative) Urine Bilirubin Negative (Negative) Urine Urobilinogen Negative (Negative) Ur Leukocyte Esterase Negative (Negative) Urine WBC (Auto) 1-5 (0-5) /hpf Urine RBC (Auto) 10-30 H (0-4) /hpf U Hyaline Cast (Auto) 1-5 (0-5) /lpf U Epithel Cells (Auto) 20-30 H (0-5) /lpf Urine Bacteria (Auto) Negative (Negative) 08/07/19 08/07/19 Range/Units 14:38 14:38 WBC 19.45 H (4.8-10.8) K/uL RBC 3.95 L (4.7-6.1) M/uL Hgb 12.9 L (14.0-18.0) g/dL Hct 39.2 L (42-52) % MCV 99.2 (80-100) fL MCH 32.7 (25-34) pg MCHC 32.9 (32-36) g/dL RDW Std Deviation 64.5 H (36.4-46.3) fL RDW Coeff of Melba 17.8 H (11.5-14.5) % Plt Count 276 (130-400) K/uL MPV 10.1 (7.4-10.4) fL Immature Gran % (Auto) 0.4 % Neut % (Auto) 94.6 % Lymph % (Auto) 2.3 % [place] % (Auto) 2.5 % Eos % (Auto) 0.1 % Baso % (Auto) 0.1 % Immature Gran # (Auto) 0.08 H (0.00-0.02) K/uL Neut # (Auto) 18.42 H (1.4-6.5) K/uL Lymph # (Auto) 0.45 L (1.2-3.4) K/uL [place] # (Auto) 0.48 (0.11-0.59) K/uL Eos # (Auto) 0.01 (0-0.5) K/uL Baso # (Auto) 0.01 (0-0.2) K/uL Absolute Nucleated RBC 0.02 H (0-0) K/uL Nucleated RBC % (auto) 0.1 % PT 11.4 (9.0-12.0) Seconds INR 1.1 (0.9-1.1) APTT 30.0 (21.0-31.0) Seconds PTT Ratio 1.1 Sodium (136-145) mmol/L Potassium (3.5-5.1) mmol/L Chloride (98-107) mmol/L Carbon Dioxide (21-32) mmol/L Anion Gap (3-11) BUN (7-18) mg/dl Creatinine (0.6-1.4) mg/dl Est Cr Clr Drug Dosing ml/min Est GFR ( Amer) Est GFR (Non-Af Amer) BUN/Creatinine Ratio (10-20) Glucose (70-99) mg/dl Lactate (0.4-2.0) mmol/L Calcium (8.5-10.1) mg/dl Magnesium (1.8-2.4) mg/dl Total Bilirubin (0.2-1) mg/dl Direct Bilirubin (0-0.2) mg/dl AST (15-37) U/L ALT (12-78) U/L Alkaline Phosphatase (45-117) U/L Troponin I (0-0.045) ng/ml Total Protein (6.4-8.2) gm/dl Albumin (3.4-5.0) gm/dl TSH (0.300-4.500) uIu/ml Urine Color Urine Appearance (Clear) Urine pH (4.5-7.5) Ur Specific [place] (1.000-1.030) Urine Protein (Negative) Urine Glucose (UA) (Negative) Urine Ketones (Negative) Urine Blood (Negative) Urine Nitrite (Negative) Urine Bilirubin (Negative) Urine Urobilinogen (Negative) Ur Leukocyte Esterase (Negative) Urine WBC (Auto) (0-5) /hpf Urine RBC (Auto) (0-4) /hpf U Hyaline Cast (Auto) (0-5) /lpf U Epithel Cells (Auto) (0-5) /lpf Urine Bacteria (Auto) (Negative) Diagnostic Findings XR foot RT min 3V routine HISTORY: 74 years-old Male Right 3rd toe ulcer chronic ulcer of the right third toe COMPARISON: Bone scan 07/06/2014 TECHNIQUE: 3 views of the right foot FINDINGS: There is marked sclerosis with bony remodeling of the first greater than second metatarsal phalangeal joints compatible with advanced osteoarthritis. Mild bony fragmentation surrounding the first MTP joint. Moderate multifocal interphalangeal osteoarthritis. Mostly mild multifocal osteophyte is of the midfoot and hindfoot with moderate sized plantar enthesophyte. Vascular calcifications are noted. There is mild soft tissue swelling of the forefoot. There is a bony defect with cortical indistinctness involving the distal aspect of the third distal phalanx. Mild associated soft tissue swelling. IMPRESSION: 1. Bony erosive changes involving the distal aspect of the third distal phalanx are suspicious findings for osteomyelitis. Correlate with physical exam findings. 2. Advanced degenerative changes of the first MTP joint with chronic remodeling. ACT 112: Negative or not required by law. The above report was generated using voice recognition software. It may contain grammatical, syntax or spelling errors. Electronically signed by: Nikko Larose M.D. 08/08/2019 11:03 AM Additionally hammer toes, 2-5.
[2019-08-08] MEDS ORDERED: VANCOMYCIN CONSULT ACTIVE PRN (08:59)
[2019-08-08] MEDS ORDERED: BuPROPion SR 150 MG TABCR PO SCH (09:00)
[2019-08-08 09:11] LABS: Albumin Level 2.5 gm/dl (3.4-5.0); BUN Creatinine Ratio 13.7 (10-20); Calcium 8.6 mg/dl (8.5-10.1); Creatinine Clr Calc Pharmacy 98.8 ml/min; Est GFR (African American) 101.3; Est GFR (Non-African American) 87.4; Potassium 3.4 mmol/L (3.5-5.1)
[2019-08-08 09:18] LABS: Albumin Globulin Ratio 0.7 (0.9-2); Bilirubin,Total 0.9 mg/dl (0.2-1); Globulin 3.5 gm/dl (2.5-4.0)
--- NOTE | 2019-08-08 09:40 | Pharmacy Report ---
Pharmacy Abx Initial Consult - Date of Service August 08, 2019 - Pharmacy Dosing Scope Date of Consult: 08/08/19 Consultation requested by: Jennie Galeano Pharmacy is consulted to initiate vancomycin IV dosing therapy, order appropriate labs and adjust drug dose/frequency. - Subjective The patient is a 74 year old M admitted on 08/07/19 16:36 with bursitis and failure to thrive. - Objective Height: 6 ft 1 in Weight: 99 kg Vital Signs (Past 12hrs): Vital Signs Temp Pulse Resp BP Pulse Ox 08/08/19 07:52 37 C 71 16 129/78 95 08/07/19 23:00 37.1 C 95 H 16 143/80 H 93 Lab Results (24hrs): Laboratory Tests (24 Hours) 08/08/19 08/08/19 08/08/19 08:27 08:27 08:27 WBC 14.78 H Neut # (Auto) 13.30 H Creatinine 0.80 Est Cr Clr Drug Dosing 98.8 Procalcitonin 0.06 08/07/19 08/07/19 14:38 14:38 WBC 19.45 H Neut # (Auto) 18.42 H Creatinine 0.91 Est Cr Clr Drug Dosing 86.8 Procalcitonin Micro Results: 08/07/19 14:38 Aerobic Blood Culture - Pending Blood Anaerobic Blood Culture - Pending 08/07/19 14:30 Aerobic Blood Culture - Pending Blood Anaerobic Blood Culture - Pending - Assessment & Plan Assessment 74 year old M admitted with failure to thrive and bursitis. He also has toe ulceration. Plan vancomycin for treatment of possible osteomyelitis Vancomycin IV * Estimated PK Parameters: Vd 0.7 L/kg, Jareth 0.076 hr-1, t1/2 9.11 hr * Loading dose: 2000 mg (20 mg/kg) - reload patient as last dose of vancomycin >15 hours ago * Maintenance dose: 1250 mg IV (12.6 mg/kg) every 8 hours Patient meets criteria for vancomycin AUC dosing nomogram * AUC/DEE DEE is the preferred PK/PD target for vancomycin * Target AUC/DEE DEE = 400-600 * AUC guided dosing is effective and associated with decreased risk of ne phrotoxicity * Trough levels poorly correlate with AUC/DEE DEE and trough monitoring has been associated with increased risk of nephrotoxicity Pharmacy will continue to follow and will adjust dose/frequency as necessary. Thank you.
[2019-08-08] MEDS ORDERED: CEFTRIAXONE SODIUM IV SCH (10:00)
[2019-08-08] MEDS ORDERED: DEXTROSE 5% IV SCH (10:00)
[2019-08-08] MEDS ORDERED: VANCOMYCIN HCL 2,000 MG in SODIUM CHLORIDE 0.9% 500 ML IV ONE (10:00)
[2019-08-08] MEDS: FOLIC ACID 1 MG TAB PO SCH ×2 (10:59→20:22)
[2019-08-08] MEDS: SPIRONOLACTONE 25 MG TAB PO SCH (10:59)
[2019-08-08] MEDS: PANTOprazole 40 MG TAB PO SCH ×2 (10:59→20:22)
[2019-08-08] MEDS: TAMSULOSIN HCL 0.4 MG CAP PO SCH (11:00)
[2019-08-08] MEDS: VENLAFAXINE HCL XR 150 MG CAPXR PO SCH (11:00)
[2019-08-08] MEDS: ARIPiprazole 5 MG TAB PO SCH (11:00)
[2019-08-08] MEDS: VENLAFAXINE HCL XR 75 MG CAPXR PO SCH (11:00)
[2019-08-08] MEDS: CHOLECALCIFEROL 1,000 UNITS TAB PO SCH (11:01)
[2019-08-08] MEDS: cefTRIAXone SODIUM 2,000 MG in DEXTROSE 5% 50 ML IV SCH (11:03)
--- NOTE | 2019-08-08 11:04 | XRay Report ---
XR foot RT min 3V routine HISTORY: 74 years-old Male Right 3rd toe ulcer chronic ulcer of the right third toe COMPARISON: Bone scan 07/06/2014 TECHNIQUE: 3 views of the right foot FINDINGS: There is marked sclerosis with bony remodeling of the first greater than second metatarsal phalangeal joints compatible with advanced osteoarthritis. Mild bony fragmentation surrounding the first MTP malachi int. Moderate multifocal interphalangeal osteoarthritis. Mostly mild multifocal osteophyte is of the midfoot and hindfoot with moderate sized plantar enthesophyte. Vascular calcifications are noted. The re is mild soft tissue swelling of the forefoot. There is a bony defect with cortical indistinctness involving the distal aspect of the third distal phalanx. Mild associated soft tissue swelling. IMPRESSION: 1. Bony erosive changes involving the distal aspect of the third distal phalanx are suspicious findin gs for osteomyelitis. Correlate with physical exam findings. 2. Advanced degenerative changes of the first MTP joint with chronic remodeling. ACT 112: Negative or not required by law. The above report was generated using voice recognition software. It may contain grammatical, syntax o r spelling errors. Electronically signed by: Nikko Larose M.D. 08/08/2019 11:03 AM
[2019-08-08] MEDS: predniSONE 20 MG TAB PO SCH (12:13)
[2019-08-08] MEDS ORDERED: POTASSIUM CHLORIDE 20 MEQ/15 ML UDC PO STA (15:01)
--- NOTE | 2019-08-08 16:09 | Gastrointestinal Consultation ---
Date of Consultation August 08, 2019 Assessment & Plan (1) Achalasia: moderate-severe, needs POEM evaluation for definitive therapy. Scheduled for this as an outpatient with [facility]. --supportive care --agree with POEM evaluation by [facility] as an outpatient --replete lytes prn --rest as per primary team History of Present Illness Attending Physician: Greg Doyle MD 74 yo male with hx severe achalasia here with failure to thrive. Patient notes significant dysphagia and difficulty eating. Has been seen by Dr. Segura in the past, has not responded to past endoscopic treatments for achalasia. He was pl anned to have an outpatient evaluation at the end of this month with [facility] for a POEM surgery. Currently denies abd pains, n/v, fevers, chills. Notes generalized weakness and frusturation with inability to consume solid food. Labs show hypokalemia and anemia. Allergies Allergy/AdvReac Type Severity Reaction Status Date / Time No Known Allergies Allergy Unknown Verified 08/07/19 15:11 Home Medications Home Medications Medication Instructions Recorded Confirmed Type folic acid 1 mg tablet 1 mg PO BID #180 tab 04/10/19 08/07/19 History methotrexate sodium 2.5 mg tablet 7.5 mg PO .COMPLEX tab 04/10/19 08/07/19 History pantoprazole 40 mg tablet,delayed 40 mg PO BID #60 tab 04/10/19 08/07/19 History release potassium chloride 20 mEq 40 meq PO BID #360 tab 04/10/19 08/07/19 History tablet,extended release simvastatin 40 mg tablet 40 mg PO QPM #90 tab 04/10/19 08/07/19 History spironolactone 25 mg tablet 25 mg PO BID #180 tab 04/10/19 08/07/19 History tamsulosin 0.4 mg capsule 0.4 mg PO QAM #90 cap 04/10/19 08/07/19 History venlafaxine 150 mg 150 mg PO QAM #90 cap 04/10/19 08/07/19 History capsule,extended release 24 hr venlafaxine 75 mg capsule,extended 75 mg PO QAM #90 cap 04/10/19 08/07/19 History release 24 hr hyoscyamine sulfate 0.125 mg 0.125 mg SL Q4H PRN #30 tab 05/11/19 08/07/19 Rx sublingual tablet aspirin [Aspirin Low Dose] 81 mg PO QAM 05/23/19 08/07/19 History clonazepam 0.5 mg PO BID PRN 05/23/19 08/07/19 History docusate sodium [Stool Softener] 100 mg PO DAILY PRN 05/23/19 08/07/19 History aripiprazole 5 mg PO DAILY 05/31/19 08/07/19 History bupropion HCl [Wellbutrin SR] 150 mg PO DAILY 05/31/19 08/07/19 History prednisone 20 mg tablet 20 mg PO .COMPLEX #42 tab 06/28/19 08/07/19 Rx ergocalciferol (vitamin D2) 1,000 1,000 units PO DAILY cap 07/25/19 08/07/19 History unit capsule furosemide 40 mg tablet 40 mg PO BID #180 tab 07/25/19 08/07/19 History oxycodone-acetaminophen 10 mg-325 1 tab PO Q4H PRN #150 tab 07/27/19 08/07/19 Rx mg tablet Patient History Medical History Anxiety Atrial fibrillation Chronic back pain Chronic obstructive pulmonary disease stopped inhalers Congestive heart failure Degenerative disc disease Depression GERD (gastroesophageal reflux disease) History of pneumonia (Resolved) Hyperlipidemia Hypertension Kidney stones On home oxygen therapy 3lpm prn Osteoarthritis Peripheral neuropathy bilateral hands & feet Pneumonia Prostate cancer with radiation Sleep apnea non-compliant with cpap Temporal arteritis (Chronic) Weight loss, unintentional Surgical History H/O toe surgery History of arthroscopic surgery of shoulder bilateral History of colonoscopy History of nasal septoplasty History of tonsillectomy Hx of shoulder surgery open left shoulder Family History Other Hypertension Social History Preferred Language: Guamanian Communication Ability: Effective 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: No Beliefs That Will Affect Care: None marital status: Single Current Living Situation: Alone Other Information That Helps Us Care for You: No Feels Safe at Home: Yes Safety Concerns: Feels Safe At This Time Smoking Status: Former smoker Tobacco Type: cigarettes ; Second Hand Exposure: No ; Hx Alcohol Use: No Hx Substance Use: No Review of Systems Constitutional: no fever, no chills and no weight loss Eyes: as per Subjective / HPI Ear, Nose, Mouth, Throat: as per Subjective / HPI Respiratory: no dyspnea and no dyspnea on exertion Cardiovascular: no chest pain and no palpitations Gastrointestinal: as per Subjective / HPI Musculoskeletal: no joint pain and no swelling Integumentary: no rash and no lesions Neurologic: no numbness and no paresthesia Psychiatric: no depression and no anxiety Endocrine: no fatigue Hematologic / Lymphatic: no easy bleeding and no easy bruising Physical Exam Constitutional: WD/WN, vitals as above Eyes: EOM intact bilaterally Neck: normal visual inspection Respiratory: normal respiratory effort, lungs clear to auscultation Cardiovascular: RRR, no murmur, no edema Gastrointestinal (Abdomen): Inspection/Auscultation: abdomen normal to inspection; abdomen not distended Percussion/Palpation: abdomen soft; abdomen nontender and no hepatosplenomegaly Musculoskeletal: Extremities: no cyanosis Gait: normal gait Skin: no rashes, warm and dry Neurologic: moves all extremities Psychiatric: A+Ox3, euthymic affect Results & Data Vital Signs (Past 12 Hours) Vital Signs Temp Pulse Resp BP Pulse Ox 08/08/19 15:15 37.0 C 100 H 20 112/69 98 08/08/19 11:38 95 08/08/19 07:52 37 C 71 16 129/78 95 PG Care Time/CCT Total # of Minutes Spent Total Time Spent with Patient: Total time spent is greater than 50% in coordination of care (as documented) at patient's floor/unit and/or counseling patient:
[2019-08-08] MEDS: VANCOMYCIN HCL 1,250 MG in SODIUM CHLORIDE 0.9% 250 ML IV SCH (20:21)
[2019-08-08] MEDS: ENOXAPARIN INJ 40 MG/0.4 ML SYR SQ SCH (20:21)
[2019-08-08] MEDS: SIMVASTATIN 40 MG TAB PO SCH (20:22)
[2019-08-09] MEDS: VANCOMYCIN HCL 1,250 MG in SODIUM CHLORIDE 0.9% 250 ML IV SCH ×3 (04:03→13:59)
[2019-08-09] MEDS: NSS + 20MEQ KCL 20 MEQ/1,000 ML BAG IV SCH ×2 (05:40→20:22)
[2019-08-09 06:49] LABS: Hematocrit (blood only) 34.7 % (42-52); Hemoglobin 11.2 g/dL (14.0-18.0); Mean Corpuscular Hemoglobin 32.5 pg (25-34); Mean Corpuscular Hgb Conc 32.3 g/dL (32-36); Mean Corpuscular Volume 100.6 fL (80-100); Mean Platelet Volume 9.9 fL (7.4-10.4); Platelet Count 253 K/uL (130-400); RDW Coefficient of Variation 18.1 % (11.5-14.5); RDW Standard Deviation 65.9 fL (36.4-46.3); Red Blood Count 3.45 M/uL (4.7-6.1); White Blood Count 12.08 K/uL (4.8-10.8)
[2019-08-09 07:21] LABS: BUN Creatinine Ratio 10.7 (10-20); Calcium 8.6 mg/dl (8.5-10.1); Creatinine Clr Calc Pharmacy 116.2 ml/min; Est GFR (African American) 108.3; Est GFR (Non-African American) 93.4; Potassium 3.6 mmol/L (3.5-5.1)
[2019-08-09 09:21] LABS: Folate (Folic Acid) > 24.00 ng/ml (>5.38); Vitamin B12 220 pg/ml (211-911)
[2019-08-09] MEDS ORDERED: VANCOMYCIN TROUGH ONE ×2 (09:30→11:30)
[2019-08-09] MEDS ORDERED: CYANOCOBALAMIN 500 MCG TABLET (VITAMIN B-12) PO SCH (09:45)
[2019-08-09] MEDS: OXYCODONE/ACETAMINOPHEN 10-325 TAB PO PRN ×3 (10:09→19:04)
[2019-08-09] MEDS: TAMSULOSIN HCL 0.4 MG CAP PO SCH (10:12)
[2019-08-09] MEDS: FOLIC ACID 1 MG TAB PO SCH ×2 (10:12→20:22)
[2019-08-09] MEDS: VENLAFAXINE HCL XR 75 MG CAPXR PO SCH (10:12)
[2019-08-09] MEDS: PANTOprazole 40 MG TAB PO SCH ×2 (10:12→20:22)
[2019-08-09] MEDS: ARIPiprazole 5 MG TAB PO SCH (10:12)
[2019-08-09] MEDS: VENLAFAXINE HCL XR 150 MG CAPXR PO SCH (10:13)
[2019-08-09] MEDS: predniSONE 20 MG TAB PO SCH (10:13)
[2019-08-09] MEDS: CHOLECALCIFEROL 1,000 UNITS TAB PO SCH (10:13)
[2019-08-09] MEDS: cefTRIAXone SODIUM 2,000 MG in DEXTROSE 5% 50 ML IV SCH (10:17)
--- NOTE | 2019-08-09 12:13 | Orthopedic Progress Note ---
Date of Service August 09, 2019 Assessment & Plan (1) Traumatic bursitis: Olecranon bursitis of his left elbow. Continue conservative treatment: ice, elevation, protection with egg crate. Activities as tolerated. Continue care per primary service and continuation antibiotics. No surgical intervention at this time. Will continue to follow. Follow-up after discharge 1 week for re-evaluation. (2) Toe ulcer, right: Right third toe, ulcer, possible osteomyelitis. Wound care input appreciated. Continue warm soaks followed by Saline rinse, and painting with Betadine dry dressing changes. Continue antibiotics. Continue care per primary service. No surgical intervention at this time. Will follow-up with podiatry, Dr. Lofton as an outpatient. Subjective Patient is unsure how he is doing. More concerned about his GI issues. Review of Systems Review of Systems: All systems reviewed & are unremarkable except as noted in HPI & below Physical Exam Physical Exam: LUE: neurovascularly intact. decreased erythema and swelling about the elbow. ROM elbow 0-135 degrees. RLE: dry skin bottom of foot and toes. BCR< 2 sec. wiggling toes up and down. sensation to light touch intact. No active drainage from right third toe. No significant swelling or erythema. Results & Data Vital Signs (Past 12 Hours) Vital Signs Temp Pulse Resp BP Pulse Ox 08/09/19 07:29 36.6 C 101 H 16 146/74 H 99
--- NOTE | 2019-08-09 12:31 | Hospitalist Progress Note ---
Date of Service August 09, 2019 Assessment & Plan (1) Failure to thrive: * Failure to thrive is likely secondary to ongoing malnutrition and deconditioning. Patient has significant achalasia which sounds to be worsening by history. Outpatient follow up with [facility] scheduled for 08/15 for esophageal dilation. WBC elevation on admission likely secondary to remote steroid use for temporal arteritis, although xray of right foot with concerns for osteo * Continue IVF -- monitor volume status as patient with diastolic CHF * Liquid diet as tolerated, boost supplementation * PT/OT -- rec inpatient rehab at d/c --> Per CM, ref sent to [facility], they will have a bed, earliest on 08/10-- will also need close follow up with [facility] for POEM for worsening achalasia * CRP elevated at 11.10, ESR 62 -- of note, patient with temporal arteritis (diagnosed May 2019) and on methotrexate and prednisone --> will trend in AM * Procalcitonin 0.06, TSH 1.010 wnl (2) Right foot ulcer: * Right distal third toe * X- ray with concerns for osteo -- per ortho, no surgical intervention at this time * Warm soaks, saline rinse, Betadine * Wound RN * --> will need follow up with Podiatry, Dr. Lofton (3) Achalasia: * Patient is known locally by Dr. Segura, will consult for further recommendations. * Patient does have a standing appointment at [facility], depending on progress may need to consider transfer to specialist for dilation sooner. * Liquid diet -- tolerating, but slowly * Continue pantoprazole * ASA held in case of intervention (4) Acute dehydration: * Per laboratory work, dehydration is likely mild. Lactate 2.5, however down to 1.8 * IVF * Hold lasix for now -- given limited PO intake * Monitor volume status (5) Chronic pulmonary aspiration: * Secondary to worsening Achalasia * Antibiotics held initially, but per rec from ortho, restarted vanco/ceftriaxone (6) Hypokalemia: * K 3.3 on admission -- given IV repletion of potassium with IV fluids. * K 3.6 today * Continue to monitor (7) Traumatic bursitis: * Ortho consult -- appreciate input * Continue IV abx vanco/ceftriaxone * Continue eggcrate for protection (8) Macrocytosis: * MCV 100.6 * Likely secondary to methotrexate use -- patient on folic acid 1mg BID * Folate >24.0 and B12 low normal at 220 * Will give supplementation -- follow up outpatient * Continue to monitor (9) Temporal arteritis: * Follows locally with Dr. Melchor and Ophthamlology * Had been on 20mg prednisone but did not receive on admission -- patient states he was supposed to be tapered to 10mg but patient unsure of date when he is supposed to decrease -- given acute illness, added 20mg daily to cover for stress dose steroids as well -- follow up with Rheum/ophthal as outpatient * 27Continue methotrexate as ordered -- next dose due Wednesday (10) Diastolic CHF: * Per history, secondary to cor pulmonale * Spironolactone resumed today * Monitor volume status * Lasix on hold in setting of dehydration * Monitor daily weights, strict I&Os * Continue to monitor BP (11) Chronic respiratory failure with hypoxia: * Patient had been weaned off O2 in the past * Currently 99% on 2L * Wean O2 to maintain sat >90% * If continues to require O2, may require 2-step prior to discharge (12) Severe protein-calorie malnutrition: * Secondary to worsening Achalasia * Albumin 2.5 today * Boost supplements (13) Hematuria: * UA on admission with 2+ blood, 10-30 RBC * No urinary symptoms currently, although patient with remote history of 10mm stone and sepsis admission in May 2019 * H/h down to 11.2/37.4 -- some component of dilution from IVF, however patient with worsening dysphagia requiring intervention -- may need sooner if patient declines * Continue to monitor -- will need outpatient follow up with Urology (14) Elevated bilirubin: * T bili 1.3 on admission * Secondary to dehydration as patient with improvement to 0.9 (15) Sleep apnea: * Per patient, has diagnosis but has been unable to tolerate CPAP (16) Depressive disorder: * Patient initially received both wellbutrin 150mg as well as effexor 225mg on 08/08 * When reviewing medications with patient when coming on service, he states he only takes 225mg effexor daily, and was confirmed with patient/medication list in patient's phone * Discontinued wellbutrin (17) DVT prophylaxis: * SCDs * Chemoproph held for possible procedure Dispo: possible discharge to [facility] (earlier 08/10) once medically stable, with close follow up and appointment 08/15 for esophageal dilation with [facility] Supervising Physician Co-Signing Physician Notes Pt chart reviewed and pt care d/w PA. Agree with current plan FTT Planning for d/c to [facility] once bed is available Achalasia, scheduled for dilation on 08/15 B12 deficiency noted, IM x5 days, then Qweek x1 month, then to PO with recheck Subjective Patient evaluated this morning. States he has an appetite but voices frustration with regards to swallowing. Plans for follow up with [facility]. Patient states he is still having pain in his left elbow, but it is slightly improved from yesterday. Still having some discomfort in his right foot. Not improved with anything, although patient unaware he was able to ask for something for pain. Reassured that nursing will be in shortly. Plans to continue IV abx and possible discharge on oral antibiotics if patient tolerating. Patient denies recent fever, chills, nausea, vomiting, shortness of breath (except with exertion), chest pain, cough, sputum production, diarrhea or constipation. Review of Systems Constitutional: + fatigue, + weakness, + anorexia and + weight loss; no fever, no chills, no sweats and no malaise Ear, Nose, Mouth, Throat: + dysphagia Gastrointestinal: + belching, + bloating, + early satiety, + nausea and + vomiting; no abdominal pain, no heartburn, no coffee ground emesis, no change in bowel habits, no change in stools, no constipation, no diarrhea/loose stools and no fecal incontinence Genitourinary: + difficulty urinating; no urinary frequency, no post-void dribbling, no hematuria and no genital pain Musculoskeletal: + joint pain Physical Exam Constitutional: WD/WN, vitals as above Eyes: + anicteric sclerae and PERRL Neck: trachea midline, no thyromegaly Respiratory: normal respiratory effort; no respiratory distress and no labored breathing Auscultation: + crackles (bibasilar) Cardiovascular: Rate/Rhythm: regular rate and regular rhythm Heart Sounds: normal S1 and normal S2; no cardiac rub Extremities: no edema Gastrointestinal (Abdomen): normal bowel sounds, soft, nontender, no hepatosplenomegaly Skin: .5-1.0cm ulcer right third toe, distal aspect Neurologic: PERRL, EOMI, accommodation nl, no face palsy, no dysarthria Psychiatric: A+Ox3, euthymic affect Lymphatic: no cervical or axillary lymphadenopathy Results & Data Vital Signs (Past 12 Hours) Vital Signs Temp Pulse Resp BP Pulse Ox 08/09/19 07:29 36.6 C 101 H 16 146/74 H 99 Laboratory Results 08/09/19 08/09/19 08/09/19 Range/Units 11:48 06:15 06:15 WBC 12.08 H (4.8-10.8) K/uL RBC 3.45 L (4.7-6.1) M/uL Hgb 11.2 L (14.0-18.0) g/dL Hct 34.7 L (42-52) % MCV 100.6 H (80-100) fL MCH 32.5 (25-34) pg MCHC 32.3 (32-36) g/dL RDW Std Deviation 65.9 H (36.4-46.3) fL RDW Coeff of Melba 18.1 H (11.5-14.5) % Plt Count 253 (130-400) K/uL MPV 9.9 (7.4-10.4) fL Sodium (136-145) mmol/L Potassium (3.5-5.1) mmol/L Chloride (98-107) mmol/L Carbon Dioxide (21-32) mmol/L Anion Gap (3-11) BUN (7-18) mg/dl Creatinine (0.6-1.4) mg/dl Est Cr Clr Drug Dosing ml/min Est GFR ( Amer) Est GFR (Non-Af Amer) BUN/Creatinine Ratio (10-20) Glucose (70-99) mg/dl Calcium (8.5-10.1) mg/dl Vitamin B12 220 (211-911) pg/ml Folate > 24.00 (>5.38) ng/ml Vancomycin Trough 21.7 (See Comment) mcg/ml 08/09/19 Range/Units 06:15 WBC (4.8-10.8) K/uL RBC (4.7-6.1) M/uL Hgb (14.0-18.0) g/dL Hct (42-52) % MCV (80-100) fL MCH (25-34) pg MCHC (32-36) g/dL RDW Std Deviation (36.4-46.3) fL RDW Coeff of Melba (11.5-14.5) % Plt Count (130-400) K/uL MPV (7.4-10.4) fL Sodium 145 (136-145) mmol/L Potassium 3.6 (3.5-5.1) mmol/L Chloride 112 H (98-107) mmol/L Carbon Dioxide 30 (21-32) mmol/L Anion Gap 3.0 (3-11) BUN 7 (7-18) mg/dl Creatinine 0.68 (0.6-1.4) mg/dl Est Cr Clr Drug Dosing 116.2 ml/min Est GFR ( Amer) 108.3 Est GFR (Non-Af Amer) 93.4 BUN/Creatinine Ratio 10.7 (10-20) Glucose 83 (70-99) mg/dl Calcium 8.6 (8.5-10.1) mg/dl Vitamin B12 (211-911) pg/ml Folate (>5.38) ng/ml Vancomycin Trough (See Comment) mcg/ml PG Care Time/CCT Total # of Minutes Spent Total Time Spent with Patient: Total time spent is greater than 50% in coordination of care (as documented) at patient's floor/unit and/or counseling patient:
[2019-08-09] MEDS ORDERED: METOPROLOL TARTRATE 1 MG/ML VIAL IV STA (12:48)
--- NOTE | 2019-08-09 12:53 | Pharmacy Report ---
Pharmacy Abx Dose Short Note - Date of Service August 09, 2019 - Assessment & Plan Assessment 74 year old M receiving IV Vancomycin and Rocephin for treatment of bursitis/osteomyelitis Day # 3 of antimicrobial therapy. Plan Vancomycin * Trough level of 21.7 mcg/mL is supratherapeutic * Change to 1250 mg IV every 10 hours * Goal trough level for OM: 15 to 20 mcg/mL * Trough level ordered for: 08/11/19 prior to the 5th maintenance dose to represent steady state levels * Spoke with RN to have her stop current bag (only infused for ~ 10 mins) and start again at 1400 Pharmacy will continue to follow and will adjust dose/frequency as necessary. Thank you.
[2019-08-09] MEDS ORDERED: METOPROLOL TARTRATE 25 MG TAB PO STA (13:04)
[2019-08-09] MEDS: SPIRONOLACTONE 25 MG TAB PO SCH (17:18)
[2019-08-09] MEDS: CYANOCOBALAMIN 1000 MCG/ML VIAL IM SCH (17:19)
[2019-08-09] MEDS: SIMVASTATIN 40 MG TAB PO SCH (20:22)
[2019-08-09] MEDS: ENOXAPARIN INJ 40 MG/0.4 ML SYR SQ SCH (20:22)
[2019-08-10] MEDS: VANCOMYCIN HCL 1,250 MG in SODIUM CHLORIDE 0.9% 250 ML IV SCH ×3 (00:18→20:34)
[2019-08-10] MEDS: OXYCODONE/ACETAMINOPHEN 10-325 TAB PO PRN ×5 (02:35→22:04)
[2019-08-10 06:09] LABS: Hemoglobin 10.3 g/dL (14.0-18.0); Mean Corpuscular Hemoglobin 32.4 pg (25-34); Mean Corpuscular Hgb Conc 32.2 g/dL (32-36); Mean Corpuscular Volume 100.6 fL (80-100); Mean Platelet Volume 9.9 fL (7.4-10.4); Platelet Count 246 K/uL (130-400); RDW Coefficient of Variation 18.2 % (11.5-14.5); RDW Standard Deviation 66.3 fL (36.4-46.3); Red Blood Count 3.18 M/uL (4.7-6.1); White Blood Count 9.46 K/uL (4.8-10.8)
[2019-08-10 06:27] LABS: BUN Creatinine Ratio 12.2 (10-20); Calcium 8.6 mg/dl (8.5-10.1); Creatinine Clr Calc Pharmacy 123.5 ml/min; Est GFR (Non-African American) 95.8; Potassium 3.6 mmol/L (3.5-5.1)
[2019-08-10] MEDS: SPIRONOLACTONE 25 MG TAB PO SCH ×2 (08:03→17:22)
[2019-08-10] MEDS: predniSONE 20 MG TAB PO SCH (08:03)
[2019-08-10] MEDS: TAMSULOSIN HCL 0.4 MG CAP PO SCH (08:03)
[2019-08-10] MEDS: FOLIC ACID 1 MG TAB PO SCH ×2 (08:03→20:35)
[2019-08-10] MEDS: NSS + 20MEQ KCL 20 MEQ/1,000 ML BAG IV SCH (08:30)
[2019-08-10] MEDS: VENLAFAXINE HCL XR 150 MG CAPXR PO SCH (08:31)
[2019-08-10] MEDS: VENLAFAXINE HCL XR 75 MG CAPXR PO SCH (08:31)
[2019-08-10] MEDS: ARIPiprazole 5 MG TAB PO SCH (08:31)
[2019-08-10] MEDS: CHOLECALCIFEROL 1,000 UNITS TAB PO SCH (08:31)
[2019-08-10] MEDS: PANTOprazole 40 MG TAB PO SCH ×2 (08:33→20:35)
[2019-08-10] MEDS: CYANOCOBALAMIN 1000 MCG/ML VIAL IM SCH (08:35)
[2019-08-10] MEDS: cefTRIAXone SODIUM 2,000 MG in DEXTROSE 5% 50 ML IV SCH (09:31)
--- NOTE | 2019-08-10 10:24 | Urology Consultation ---
Date of Consultation August 10, 2019 Assessment & Plan (1) Hematuria: 74 yo M hospital day 3 s/p fall, elbow pain, achalasia, failure to thrive and multiple comorbidities. Pt with microscopic hematuria on admission. Pt scheduled for outpatient follow- up of nephrolithiasis with Dr. Chen on 08/23/19, keep as scheduled. Renal ultrasound was scheduled for 08/11. Will order Renal ultrasound to have done while inpatient. Likely okay to remove thorne catheter prior to discharge. Will continue to monitor peripherally while inpatient. History of Present Illness Attending Physician: Greg Doyle MD History of Present Illness 74 yo M admitted 3 days ago after fall, elbow pain, achalasia and multiple comorbidities. Consulted for microscopic hematuria noted on admission UA. Pt known to our service for stone disease. He is s/p laser lithotripsy for 10 mm right obstructing stone in May 2019. Chart review: Afebrile Cr - 0.64 UA 08/07 2+ blood, 10-30 RBCs Blood cultures - prelim no growth Patient sitting up in bed, awake, drinking fluids. Some difficulty with swallowing fluids noted. Thorne catheter intact, draining yellow urine. Denies discomfort from catheter. He cannot recall why Thorne catheter was placed. States he "was told it was being placed." Denies gross hematuria, dysuria, urgency. Pt concerned about disposition regarding repeated admission for failure to thrive, difficulty swallowing, nutrition. Allergies Allergy/AdvReac Type Severity Reaction Status Date / Time No Known Allergies Allergy Unknown Verified 08/07/19 15:11 Home Medications Home Medications Medication Instructions Recorded Confirmed Type folic acid 1 mg tablet 1 mg PO BID #180 tab 04/10/19 08/07/19 History methotrexate sodium 2.5 mg tablet 7.5 mg PO .COMPLEX tab 04/10/19 08/07/19 History pantoprazole 40 mg tablet,delayed 40 mg PO BID #60 tab 04/10/19 08/07/19 History release potassium chloride 20 mEq 40 meq PO BID #360 tab 04/10/19 08/07/19 History tablet,extended release simvastatin 40 mg tablet 40 mg PO QPM #90 tab 04/10/19 08/07/19 History spironolactone 25 mg tablet 25 mg PO BID #180 tab 04/10/19 08/07/19 History tamsulosin 0.4 mg capsule 0.4 mg PO QAM #90 cap 04/10/19 08/07/19 History venlafaxine 150 mg 150 mg PO QAM #90 cap 04/10/19 08/07/19 History capsule,extended release 24 hr venlafaxine 75 mg capsule,extended 75 mg PO QAM #90 cap 04/10/19 08/07/19 History release 24 hr hyoscyamine sulfate 0.125 mg 0.125 mg SL Q4H PRN #30 tab 05/11/19 08/07/19 Rx sublingual tablet aspirin [Aspirin Low Dose] 81 mg PO QAM 05/23/19 08/07/19 History clonazepam 0.5 mg PO BID PRN 05/23/19 08/07/19 History docusate sodium [Stool Softener] 100 mg PO DAILY PRN 05/23/19 08/07/19 History aripiprazole 5 mg PO DAILY 05/31/19 08/07/19 History bupropion HCl [Wellbutrin SR] 150 mg PO DAILY 05/31/19 08/07/19 History prednisone 20 mg tablet 20 mg PO .COMPLEX #42 tab 06/28/19 08/07/19 Rx ergocalciferol (vitamin D2) 1,000 1,000 units PO DAILY cap 07/25/19 08/07/19 History unit capsule furosemide 40 mg tablet 40 mg PO BID #180 tab 07/25/19 08/07/19 History oxycodone-acetaminophen 10 mg-325 1 tab PO Q4H PRN #150 tab 07/27/19 08/07/19 Rx mg tablet Patient History Medical History Anxiety Atrial fibrillation Chronic back pain Chronic obstructive pulmonary disease stopped inhalers Congestive heart failure Degenerative disc disease Depression GERD (gastroesophageal reflux disease) History of pneumonia (Resolved) Hyperlipidemia Hypertension Kidney stones On home oxygen therapy 3lpm prn Osteoarthritis Peripheral neuropathy bilateral hands & feet Pneumonia Prostate cancer with radiation Sleep apnea non-compliant with cpap Temporal arteritis (Chronic) Weight loss, unintentional Surgical History H/O toe surgery History of arthroscopic surgery of shoulder bilateral History of colonoscopy History of nasal septoplasty History of tonsillectomy Hx of shoulder surgery open left shoulder Family History Other Hypertension Social History Preferred Language: [place] Communication Ability: Effective 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 Beliefs That Will Affect Care: None marital status: Single Current Living Situation: Alone Other Information That Helps Us Care for You: No Feels Safe at Home: Yes Safety Concerns: Feels Safe At This Time Smoking Status: Former smoker Tobacco Type: cigarettes ; Second Hand Exposure: No ; Hx Alcohol Use: No Hx Substance Use: No Review of Systems Review of Systems: All systems reviewed & are unremarkable except as noted in HPI & below Physical Exam Physical Exam: Obese, NAD AOx3 Breathing comfortably, O2 via NC Abd nondistended Thorne intact, draining clear yellow Results & Data Vital Signs (Past 12 Hours) Vital Signs Temp Pulse Resp BP Pulse Ox 08/10/19 07:35 36.9 C 88 18 148/81 H 97 08/09/19 23:11 37.0 C 86 16 134/73 95 PG Care Time/CCT Total # of Minutes Spent Total Time Spent with Patient: Total time spent is greater than 50% in coordination of care (as documented) at patient's floor/unit and/or counseling patient:
--- NOTE | 2019-08-10 10:59 | Ultrasound Report ---
US renal/blad retro comp CLINICAL HISTORY: 74 years-old Male presenting with hx stones, micro hematuria. TECHNIQUE: Real-time grayscale and limited color Doppler ultrasound imaging of the kidneys and bladde r was performed. COMPARISON: 05/25/[address] from 05/31/2019. FINDINGS: Right kidney: Normal echogenicity with preserved corticomedullary differentiation. Normal cortical th ickness. Right kidney measures 11.6 cm. No hydronephrosis. Upper pole cyst noted. The prior right ure teral stent is not visualized. This may be a limitation of the modality. Left kidney: Normal echogenicity with preserved corticomedullary differentiation. Normal cortical thi ckness. Left kidney measures 11.7 cm. No hydronephrosis. Hyperechogenic shadowing focus at the lower pole of the left kidney consistent with calculus. Bladder: Catheter in place with decompressed urinary bladder. Other: Heterogeneous collection noted anterior and inferior to the right kidney likely corresponding to the site of fluid and infiltrated fat on prior CT. IMPRESSION: 1. No hydronephrosis. 2. Left nephrolithiasis. 3. Underlying right nephrolithiasis and right ureteral stent seen on prior CT not appreciated on thi s ultrasound likely due to limitations in the modality. ACT 112: Negative or not required by law. Electronically signed by: Bhavik Richardson M.D. 08/10/2019 10:58 AM
--- NOTE | 2019-08-10 12:43 | Hospitalist Progress Note ---
Date of Service August 10, 2019 Assessment & Plan (1) Failure to thrive: * Failure to thrive is likely secondary to ongoing malnutrition and deconditioning. Patient has significant achalasia which sounds to be worsening by history. Outpatient follow up with [facility] scheduled for 08/15 for esophageal dilation. WBC elevation on admission likely secondary to remote steroid use for temporal arteritis, although xray of right foot with concerns for osteo * DC IVF as patient is positive 5L * Liquid diet as tolerated, boost supplementation * PT/OT -- rec inpatient rehab at d/c --> Per , ref sent to [facility] - will also need close follow up with [facility] GI for POEM for worsening achalasia * CRP CRP/ESR trending down-- of note, patient with temporal arteritis (diagnosed May 2019) and on methotrexate and prednisone * Procalcitonin 0.06, TSH 1.010 wnl (2) Right foot ulcer: * Right distal third toe * X- ray with concerns for osteo -- per ortho, no surgical intervention at this time * Warm soaks, saline rinse, Betadine * Wound RN * --> will need follow up with Podiatry, Dr. Lofton (3) Achalasia: * Patient is known locally by Dr. Segura, will consult for further recommendations. * Patient does have a standing appointment at [facility] on 08/15 for POEM procedure. I did speak with [facility] surgery and unfortunately only one physician performs that procedure and he will not return until 08/15 so that date is the earliest he could be treated. They did not feel that transfer was necessary. Patient's nutrition should be supported until able to attend 08/15 appt. I did suggest Coresafe NG with feeds but Mr. Juarez is unsure and wants to think about it. * Full Liquid diet -- tolerating some * Continue pantoprazole * ASA held in case of intervention (4) Acute dehydration: * dc IVF as above * Hold lasix for now -- given limited PO intake (5) Chronic pulmonary aspiration: * Secondary to worsening Achalasia * Antibiotics held initially, but per rec from ortho, restarted vanco/ceftriaxone (6) Hypokalemia: * K 3.3 on admission -- given IV repletion of potassium with IV fluids. * K 3.6 today * Continue to monitor (7) Traumatic bursitis: * Ortho consult -- appreciate input * Continue IV abx vanco/ceftriaxone * Continue eggcrate for protection (8) Macrocytosis: * MCV 100.6 * Likely secondary to methotrexate use -- patient on folic acid 1mg BID * Folate >24.0 and B12 low normal at 220 * Will give supplementation -- follow up outpatient (9) Temporal arteritis: * Follows locally with Dr. Melchor and Ophthamlology * Had been on 20mg prednisone but did not receive on admission -- patient states he was supposed to be tapered to 10mg but patient unsure of date when he is supposed to decrease -- given acute illness, added 20mg daily to cover for stress dose steroids as well -- follow up with Rheum/ophthal as outpatient * Continue methotrexate as ordered -- next dose due Saturday 08/11 (10) Diastolic CHF: * Per history, secondary to cor pulmonale * Spironolactone resumed * Monitor volume status * Lasix on hold in setting of dehydration * Monitor daily weights, strict I&Os * Continue to monitor BP (11) Chronic respiratory failure with hypoxia: * Patient had been weaned off O2 in the past * Currently 99% on 2L * Wean O2 to maintain sat >90% (12) Severe protein-calorie malnutrition: * Secondary to worsening Achalasia * Albumin 2.5 today * Boost supplements (13) Hematuria: * UA on admission with 2+ blood, 10-30 RBC * No urinary symptoms currently, although patient with remote history of 10mm stone and sepsis admission in May 2019 * H/h down to 11.2/37.4 -- some component of dilution from IVF, however patient with worsening dysphagia requiring intervention -- may need sooner if patient declines * Continue to monitor -- will need outpatient follow up with Urology (14) Elevated bilirubin: * T bili 1.3 on admission * Secondary to dehydration as patient with improvement to 0.9 (15) Sleep apnea: * Per patient, has diagnosis but has been unable to tolerate CPAP (16) Depressive disorder: * Patient initially received both wellbutrin 150mg as well as effexor 225mg on 08/08 * When reviewing medications with patient when coming on service, he states he only takes 225mg effexor daily, and was confirmed with patient/medication list in patient's phone * Discontinued wellbutrin (17) DVT prophylaxis: * SCDs Dispo: discharge to [facility] once medically stable likely 08/11 with close follow up and appointment 08/15 for esophageal dilation with [facility]. Son Paul (POA) updated. Subjective Mr. Juarez is very frustrated with his continued swallowing difficulties. He is able to keep his boost drinks down. He does not have complaints of pain, his elbow is much less tender than upon admission Review of Systems Review of Systems: All systems reviewed & are unremarkable except as noted in HPI & below Physical Exam Physical Exam: General: no distress Eyes: normal inspection, PERLL Respiratory: chest non tender, clear to auscultation, normal breath sounds, no respiratory distress, no accessory muscle use Cardiac: regular rate and rhythm, no rub or gallop, no murmur, no edema, no jvd GI/: active bowel sounds, no abd pain or tenderness, soft, non distended Extremities: normal range of motion, normal strength, non tender Neuro/Psych: alert and oriented x 3, normal mood and affect Skin: normal color, dry Results & Data Vital Signs (Past 12 Hours) Vital Signs Temp Pulse Resp BP Pulse Ox 08/10/19 07:35 36.9 C 88 18 148/81 H 97 PG Care Time/CCT Total # of Minutes Spent Total Time Spent with Patient: Total time spent is greater than 50% in coordination of care (as documented) at patient's floor/unit and/or counseling patient:
--- NOTE | 2019-08-10 16:38 | Orthopedic Progress Note ---
Date of Service August 10, 2019 Assessment & Plan (1) Traumatic bursitis: Olecranon bursitis of his left elbow. Continue conservative treatment: ice, elevation, protection with egg crate. Activities as tolerated. Continue care per primary service and continuation antibiotics. No surgical intervention at this time. Follow-up after discharge from hospital in 1-2 week for re-evaluation, and following discharge for upcoming GI procedure. Please call [phone] for appointments for ortho and podiatry. (2) Toe ulcer, right: Right third toe, ulcer, possible osteomyelitis. Wound care input appreciated. Continue warm soaks followed by Saline rinse, and painting with Betadine dry dressing changes. Continue antibiotics. Continue care per primary service. No surgical intervention at this time. Will follow-up with podiatry, Dr. Lofton as an outpatient (please try and schedule on same day as f/u for elbow). Subjective Elbow is feeling much better. Review of Systems Review of Systems: All systems reviewed & are unremarkable except as noted in HPI & below Physical Exam Physical Exam: LUE: Decreased erythema. Neurovascularly unchanged. FROM elbow. Decreased swelling and minimal tenderness to palpation about the olecranon. RLE: Neurovascularly unchanged. No obvious drainage from right third toe. Results & Data Vital Signs (Past 12 Hours) Vital Signs Temp Pulse Resp BP Pulse Ox 08/10/19 16:13 37.1 C 88 17 148/81 H 98 08/10/19 07:35 36.9 C 88 18 148/81 H 97
[2019-08-10] MEDS: FUROSEMIDE 40 MG TAB PO SCH (19:15)
[2019-08-10] MEDS: ENOXAPARIN INJ 40 MG/0.4 ML SYR SQ SCH (20:34)
[2019-08-10] MEDS: SIMVASTATIN 40 MG TAB PO SCH (20:36)
[2019-08-11] MEDS: OXYCODONE/ACETAMINOPHEN 10-325 TAB PO PRN ×5 (04:59→22:15)
[2019-08-11] MEDS ORDERED: VANCOMYCIN TROUGH SCH (05:30)
[2019-08-11 08:29] LABS: Hematocrit (blood only) 33.5 % (42-52); Hemoglobin 10.9 g/dL (14.0-18.0); Mean Corpuscular Hemoglobin 32.5 pg (25-34); Mean Corpuscular Hgb Conc 32.5 g/dL (32-36); Mean Platelet Volume 9.6 fL (7.4-10.4); Platelet Count 266 K/uL (130-400); RDW Coefficient of Variation 18.1 % (11.5-14.5); RDW Standard Deviation 65.6 fL (36.4-46.3); Red Blood Count 3.35 M/uL (4.7-6.1); White Blood Count 11.17 K/uL (4.8-10.8)
[2019-08-11 08:56] LABS: Albumin Level 2.3 gm/dl (3.4-5.0); BUN Creatinine Ratio 8.8 (10-20); Calcium 8.7 mg/dl (8.5-10.1); Creatinine Clr Calc Pharmacy 104.6 ml/min; Est GFR (African American) 103.4; Est GFR (Non-African American) 89.2; Potassium 3.3 mmol/L (3.5-5.1)
[2019-08-11 08:58] LABS: Albumin Globulin Ratio 0.7 (0.9-2); Bilirubin,Total 0.4 mg/dl (0.2-1); Globulin 3.3 gm/dl (2.5-4.0); Total Protein 5.6 gm/dl (6.4-8.2)
[2019-08-11] MEDS: ARIPiprazole 5 MG TAB PO SCH (09:06)
[2019-08-11] MEDS: TAMSULOSIN HCL 0.4 MG CAP PO SCH (09:08)
[2019-08-11] MEDS: predniSONE 20 MG TAB PO SCH (09:08)
[2019-08-11] MEDS: VENLAFAXINE HCL XR 150 MG CAPXR PO SCH (09:09)
[2019-08-11] MEDS: FOLIC ACID 1 MG TAB PO SCH ×2 (09:09→20:56)
[2019-08-11] MEDS: VENLAFAXINE HCL XR 75 MG CAPXR PO SCH (09:09)
[2019-08-11] MEDS: FUROSEMIDE 40 MG TAB PO SCH ×2 (09:09→17:46)
[2019-08-11] MEDS: PANTOprazole 40 MG TAB PO SCH ×2 (09:10→20:57)
[2019-08-11] MEDS: metHOTREXate sodium 2.5 MG TAB PO SCH ×2 (09:10→21:00)
[2019-08-11] MEDS: SPIRONOLACTONE 25 MG TAB PO SCH ×2 (09:11→17:46)
[2019-08-11] MEDS: CHOLECALCIFEROL 1,000 UNITS TAB PO SCH (09:11)
[2019-08-11] MEDS ORDERED: POTASSIUM CHLORIDE 20 MEQ/15 ML UDC PO STA (09:15)
--- NOTE | 2019-08-11 09:38 | Pharmacy Report ---
Pharmacy Abx Dose Short Note - Date of Service August 11, 2019 - Assessment & Plan Assessment 74 year old M receiving IV Vancomycin and Rocephin for treatment of bursitis/osteomyelitis Day # 5 of antimicrobial therapy. Blood cultures negative, no further culture data available SCr up slightly from yesterday but remains ~baseline Plan Vancomycin * Trough level of 28 mcg/mL is supratherapeutic. Dose for this AM was placed on hold when level resulted; therefore, last dose was 2000 last night. * Change to 1250 mg IV every 14 hours - start @ 1200 today (when level expected to be ~18) * Goal trough level for possible osteo : 15 to 20 mcg/mL * Trough level ordered for: 08/12/19 prior to the dose due at 1600 (Note: will be prior to steady state but need to monitor closely in the setting of supratherapeutic trough) Recommendations for discharge: * If close monitoring of vancomycin is not feasible and pneumonia not a concern, would recommend switching to daptomycin 500 mg (6 mg/kg IBW) q24h * If vancomycin to be continued, recommend either 1250 mg IV q14h OR 1000 mg IV q12h with trough level prior to 3rd dose. Monitor SCr daily x 3 days, then q3days. Pharmacy will continue to follow and will adjust dose/frequency as necessary. Thank you.
--- NOTE | 2019-08-11 09:49 | Urology Progress Note ---
Date of Service August 11, 2019 Assessment & Plan (1) Hematuria: 74 yo M hospital day 4 s/p fall, traumatic bursitis, achalasia, failure to thrive and multiple comorbidities. Renal ultrasound reviewed, reassuring. Will follow-up outpatient for nephrolithiasis as scheduled on 08/23/19. Continue Mendiola catheter. Continue Flomax. Recommend passive TOV at [facility] in 2- 3 days from now. If unable to void in 8 hours, replace catheter and follow-up with our service outpatient as scheduled. Thank you for allowing us to participate in the acute care of Mr. Juarez. Please reconsult us with additional questions, concerns or changes in patient status. Subjective 74 yo M admitted 4 days ago after fall, elbow pain, achalasia and multiple comorbidities. Patient sitting up in bed. No new issues overnight. Mendiola catheter in place, clear yellow urine. Per nursing, Mendiola placed due to urinary retention. Denies flank pain, urgency, dysuria, or gross hematuria. Renal ultrasound reviewed. No hydronephrosis, stable left nephrolithiasis. Review of Systems Constitutional: as per Subjective / HPI Genitourinary: + as per Subjective / HPI Physical Exam Constitutional: + obese; no acute distress Respiratory: normal respiratory effort Cardiovascular: Extremities: no pedal edema Gastrointestinal (Abdomen): Inspection/Auscultation: abdomen not distended Neurologic: moves all extremities and awake Psychiatric: Orientation: alert and oriented x 3 Genitourinary: Mendiola catheter intact, clear yellow urine Results & Data Vital Signs (Past 12 Hours) Vital Signs Temp Pulse Resp BP Pulse Ox 08/11/19 07:15 36.7 C 77 16 144/82 H 92 08/10/19 22:59 36.8 C 80 16 140/80 93 PG Care Time/CCT Total # of Minutes Spent Total Time Spent with Patient: Total time spent is greater than 50% in coordination of care (as documented) at patient's floor/unit and/or counseling patient:
[2019-08-11] MEDS: cefTRIAXone SODIUM 2,000 MG in DEXTROSE 5% 50 ML IV SCH (10:47)
[2019-08-11] MEDS: VANCOMYCIN HCL 1,250 MG in SODIUM CHLORIDE 0.9% 250 ML IV SCH (11:48)
--- NOTE | 2019-08-11 14:21 | XRay Report ---
SINGLE VIEW CHEST CLINICAL HISTORY: PICC placement. FINDINGS: An AP, portable, upright chest radiograph is compared to study dated 08/07/2019. Correlatio n is made with chest CT dated 06/03/2019. The examination is degraded by portable technique and patie nt rotation. A left PICC line has been placed. The tip projects over the SVC. The heart is enlarged n oting atherosclerotic calcification of the thoracic aorta. The pulmonary vasculature is noncongested. There is bibasilar scarring/atelectasis. No airspace consolidation or large pleural effusion is iden tified. No pneumothorax is seen. The skeletal structures are osteopenic. The bony thorax is grossly i ntact. A surgical anchor is noted in the left humeral head. IMPRESSION: 1. A left-sided PICC line has been placed as above. The tip projects over the SVC. 2. Cardiomegaly without radiographic evidence of congestive failure. 3. No airspace consolidation or large pleural effusion is identified. ACT 112: Negative or not required by law. Electronically signed by: Leroy Wasserman M.D. 08/11/2019 2:19 PM
[2019-08-11] MEDS: CYANOCOBALAMIN 1000 MCG/ML VIAL IM SCH (14:37)
--- NOTE | 2019-08-11 15:09 | Hospitalist Progress Note ---
Date of Service August 11, 2019 Assessment & Plan (1) Failure to thrive: * Failure to thrive is likely secondary to ongoing malnutrition and deconditioning. Patient has significant achalasia. Outpatient follow up with [facility] scheduled for 08/15 for esophageal dilation. WBC elevation on admission likely secondary to remote steroid use for temporal arteritis, although xray of right foot with concerns for osteo * DC'd IVF as patient is positive 5L * Liquid diet as tolerated, boost supplementation * PT/OT -- rec inpatient rehab at d/c --> Per CM, ref sent to [facility] - will also need close follow up with [facility] GI for POEM for worsening achalasia * CRP/ESR trending down-- of note, patient with temporal arteritis (diagnosed May 2019) and on methotrexate and prednisone * Procalcitonin 0.06, TSH 1.010 wnl, mild leukocytosis probably secondary to chronic steroid use (2) Right foot ulcer: * Right distal third toe * X- ray with concerns for osteo -- per ortho, no surgical intervention at this time * Warm soaks, saline rinse, Betadine * Wound RN * --> will need follow up with Podiatry, Dr. Lofton * PICC placed so patient can DC with IV abx (3) Achalasia: * Patient is known locally by Dr. Segura, seen by Dr. Martinez here -patient has been refractory to dilatation or other interventions so no invasive interventions per GI, await [place] follow up * Patient does have a standing appointment at [facility] on 08/15 for POEM procedure. I did speak with [facility] surgery and unfortunately only one physician performs that procedure and he will not return until 08/15 so that date is the earliest he could be treated. They did not feel that transfer was necessary. Patient's nutrition should be supported until able to attend 08/15 appt. I did suggest Coresafe NG with feeds but Mr. Juarez declined. He knows he is an aspiration risk with trying to swallow past his achalasia but he does not want to do a tube. * Full Liquid diet -- tolerating some * Continue pantoprazole * ASA has been held in case of intervention and at this point he will see his [place] doctor in a few days so will continue to hold (4) Acute dehydration: * dc IVF as above - resolved * Patient positive 4L * Furosemide, spironolactone resumed (5) Chronic pulmonary aspiration: * Secondary to worsening Achalasia * On vanco/ceftriaxone for osteomyelitis (6) Hypokalemia: * replaced * continue spironolactone (7) Traumatic bursitis: * Ortho consult - Continue conservative treatment: ice, elevation, protection with egg crate. Activities as tolerated. Continue antibiotics. No surgical intervention at this time. Follow-up after discharge from hospital in 1-2 week for re-evaluation, and following discharge for upcoming GI procedure. Please call [phone] for appointments for ortho and podiatry. * Continue IV abx vanco/ceftriaxone * Continue eggcrate for protection (8) Macrocytosis: * MCV 100.6 * Likely secondary to methotrexate use -- patient on folic acid 1mg BID * Folate >24.0 and B12 low normal at 220 * Will give supplementation -- follow up outpatient (9) Temporal arteritis: * Follows locally with Dr. Melchor and Ophthamlology * Had been on 20mg prednisone but did not receive on admission -- patient states he was supposed to be tapered to 10mg but patient unsure of date when he is supposed to decrease -- given acute illness, added 20mg daily to cover for stress dose steroids as well -- follow up with Rheum/ophthal as outpatient * Continue methotrexate as ordered -- next dose due Saturday 08/11 (10) Diastolic CHF: * Per history, secondary to cor pulmonale * Continue furosemide and spironolactone * Monitor daily weights, strict I&Os (11) Chronic respiratory failure with hypoxia: * Patient had been weaned off O2 in the past * Currently 95% on 2L * Wean O2 to maintain sat >90% (12) Severe protein-calorie malnutrition: * Secondary to worsening Achalasia * Boost supplements (13) Hematuria: * UA on admission with 2+ blood, 10-30 RBC * No urinary symptoms currently, although patient with remote history of 10mm stone and sepsis admission in May 2019 * H/h down to 11.2/37.4 -- some component of dilution from IVF, however patient with worsening dysphagia requiring intervention -- may need sooner if patient declines * Urology consulted - recommend dc with Mendiola and TOV in 2-3 days at rehab facility. Replace Mendiola if no void in 8 hours and follow up with urology (14) Elevated bilirubin: * T bili 1.3 on admission * Secondary to dehydration as patient with improvement to 0.9 (15) Sleep apnea: * Per patient, has diagnosis but has been unable to tolerate CPAP (16) Depressive disorder: * Patient initially received both wellbutrin 150mg as well as effexor 225mg on 08/08 * When reviewing medications with patient when coming on service, he states he only takes 225mg effexor daily, and was confirmed with patient/medication list in patient's phone * Discontinued wellbutrin (17) DVT prophylaxis: * SCDs Dispo: Was to discharge to [facility] today but they are unable to accommodate. CM working on placement at alternative facility today vs to [facility] tomorrow. Supervising Physician Co-Signing Physician Notes I supervised Tamiko Pitts NP on this patient's care. I examined the patient today independently of her. I discussed the plan of care with her with the plan being as written in her note except for any following changes/exceptions: None. Overall, feeling better than when he came in, but very anxious to get to [place] for his achalasia procedure. Subjective Mr. Juarez has some pain in his shoulders which is chronic. His elbow continues to feel better. He is about the same as far as ability to eat. ROS Constitutional: no chills, aches, sweats or fever Respiratory: no sob,cough, sputum, or wheezing Cardiac: no chest pain, palpitations, edema, orthopnea or lightheadedness GI: no abdominal pain, nausea, vomiting, diarrhea or constipation : no dysuria or hesitancy Extremities: see HPI Skin: no rash All other systems reviewed and negative Physical Exam Physical Exam: General: no distress Eyes: normal inspection, PERLL Respiratory: chest non tender, clear to auscultation, normal breath sounds, no respiratory distress, no accessory muscle use Cardiac: regular rate and rhythm, no rub or gallop, no murmur, no edema, no jvd GI/: active bowel sounds, no abd pain or tenderness, soft, non distended Extremities: normal range of motion, normal strength, erythema and edema over left elbow with mild tenderness to touch Neuro/Psych: alert and oriented x 3, normal mood and affect Skin: normal color, dry, Results & Data Vital Signs (Past 12 Hours) Vital Signs Temp Pulse Resp BP Pulse Ox 08/11/19 07:15 36.7 C 77 16 144/82 H 92 PG Care Time/CCT Total # of Minutes Spent Total Time Spent with Patient: Total time spent is greater than 50% in coordination of care (as documented) at patient's floor/unit and/or counseling patient:
[2019-08-11] MEDS: ENOXAPARIN INJ 40 MG/0.4 ML SYR SQ SCH (20:56)
[2019-08-11] MEDS: SIMVASTATIN 40 MG TAB PO SCH (20:58)
[2019-08-12] MEDS: VANCOMYCIN HCL 1,250 MG in SODIUM CHLORIDE 0.9% 250 ML IV SCH ×2 (02:21→17:43)
[2019-08-12] MEDS: OXYCODONE/ACETAMINOPHEN 10-325 TAB PO PRN ×4 (04:50→20:42)
[2019-08-12 06:03] LABS: Creatinine Clr Calc Pharmacy 81.1 ml/min; Est GFR (African American) 87.1; Est GFR (Non-African American) 75.1
[2019-08-12 09:07] LABS: Hematocrit (blood only) 36.1 % (42-52); Hemoglobin 11.6 g/dL (14.0-18.0); Mean Corpuscular Hemoglobin 32.8 pg (25-34); Mean Corpuscular Hgb Conc 32.1 g/dL (32-36); Mean Platelet Volume 10.6 fL (7.4-10.4); Platelet Count 287 K/uL (130-400); RDW Coefficient of Variation 18.3 % (11.5-14.5); RDW Standard Deviation 68.6 fL (36.4-46.3); Red Blood Count 3.54 M/uL (4.7-6.1); White Blood Count 10.41 K/uL (4.8-10.8)
[2019-08-12 09:09] LABS: BUN Creatinine Ratio 7.8 (10-20); Creatinine Clr Calc Pharmacy 82.9 ml/min; Est GFR (African American) 90.4; Potassium 3.5 mmol/L (3.5-5.1)
[2019-08-12] MEDS: SPIRONOLACTONE 25 MG TAB PO SCH ×2 (09:55→17:41)
[2019-08-12] MEDS: ARIPiprazole 5 MG TAB PO SCH (09:55)
[2019-08-12] MEDS: VENLAFAXINE HCL XR 75 MG CAPXR PO SCH (09:56)
[2019-08-12] MEDS: PANTOprazole 40 MG TAB PO SCH ×2 (09:56→20:42)
[2019-08-12] MEDS: TAMSULOSIN HCL 0.4 MG CAP PO SCH (09:56)
[2019-08-12] MEDS: VENLAFAXINE HCL XR 150 MG CAPXR PO SCH (09:56)
[2019-08-12] MEDS: CHOLECALCIFEROL 1,000 UNITS TAB PO SCH (09:57)
[2019-08-12] MEDS: FUROSEMIDE 40 MG TAB PO SCH ×2 (09:57→17:41)
[2019-08-12] MEDS: FOLIC ACID 1 MG TAB PO SCH ×2 (09:57→20:42)
[2019-08-12] MEDS: predniSONE 20 MG TAB PO SCH (09:58)
[2019-08-12] MEDS: cefTRIAXone SODIUM 2,000 MG in DEXTROSE 5% 50 ML IV SCH (10:03)
[2019-08-12] MEDS: CYANOCOBALAMIN 1000 MCG/ML VIAL IM SCH (10:48)
[2019-08-12] MEDS ORDERED: VANCOMYCIN TROUGH ONE (15:30)
--- NOTE | 2019-08-12 16:58 | Pharmacy Report ---
Pharmacy Abx Dose Short Note - Date of Service August 12, 2019 - Assessment & Plan Assessment 74 year old M receiving empiric vancomycin and ceftriaxone for treatment of suspected osteomyelitis Day # 6 of antimicrobial therapy. Microbiology: -Blood cultures x 2: no growth at 48 hours Plan Vancomycin * Trough level of 21.7 mcg/mL is slightly supratherapeutic * Trending down from previous trough of 28 mcg/mL * Continue dose of 1250 mg IV every 14 hours * Goal trough level for osteomyelitis : 15 to 20 mcg/mL (preferably closer to 20 mcg/mL) * Trough level ordered for: 08/14/19 * Will assess renal function in AM to see if dose reduction or earlier trough needs to be considered Ceftriaxone * 2 g IV q24h - appropriate Pharmacy will continue to follow and will adjust dose/frequency as necessary. Thank you.
--- NOTE | 2019-08-12 18:27 | Hospitalist Progress Note ---
Date of Service August 12, 2019 Assessment & Plan (1) Failure to thrive: * Failure to thrive is likely secondary to ongoing malnutrition and deconditioning. Patient has significant achalasia. Outpatient follow up with [facility] scheduled for 08/15 for POEM procedure. * Liquid diet as tolerated, boost supplementation * PT/OT -- rec inpatient rehab at d/ --> Per CM, ref sent to [facility] - will also need close follow up with [facility] GI for POEM for worsening achalasia * CRP/ESR trending down-- of note, patient with temporal arteritis (diagnosed May 2019) and on methotrexate and prednisone * Procalcitonin 0.06, TSH 1.010 wnl, mild leukocytosis probably secondary to chronic steroid use now resolved (2) Right foot ulcer: * Right distal third toe * X- ray with concerns for osteo -- per ortho, no surgical intervention at this time * Warm soaks, saline rinse, Betadine * Wound RN * --> will need follow up with Podiatry, Dr. Lofton * PICC placed so patient can DC with IV abx vanc and ceftriaxone (3) Achalasia: * Patient is known locally by Dr. Segura, seen by Dr. Martinez here -patient has been refractory to dilatation or other interventions so no invasive interventions per GI, await [place] follow up * Patient does have a standing appointment at [facility] on 08/15 for POEM procedure. I did speak with [facility] surgery and unfortunately only one physician performs that procedure and he will not return until 08/15 so that date is the earliest he could be treated. They did not feel that transfer was necessary. Patient's nutrition should be supported until able to attend 08/15 appt. I did suggest Coresafe NG with feeds but Mr. Juarez declined. He knows he is an aspiration risk with trying to swallow past his achalasia but he does not want to do a tube. * Full Liquid diet -- tolerating some * Continue pantoprazole * ASA has been held in case of intervention and at this point he will see his [place] doctor in a few days so will continue to hold (4) Acute dehydration: * dc IVF - resolved * Furosemide, spironolactone resumed (5) Chronic pulmonary aspiration: * Secondary to worsening Achalasia * On vanco/ceftriaxone for osteomyelitis (6) Hypokalemia: * replaced * continue spironolactone (7) Traumatic bursitis: * Ortho consult - Continue conservative treatment: ice, elevation, protection with egg crate. Activities as tolerated. Continue antibiotics. No surgical intervention at this time. Follow-up after discharge from hospital in 1-2 week for re-evaluation, and following discharge for upcoming GI procedure. Please call [phone] for appointments for ortho and podiatry. * Continue IV abx vanco/ceftriaxone * Continue eggcrate for protection (8) Macrocytosis: * MCV 100.6 * Likely secondary to methotrexate use -- patient on folic acid 1mg BID * Folate >24.0 and B12 low normal at 220 * Will give supplementation -- follow up outpatient (9) Temporal arteritis: * Follows locally with Dr. Melchor and Ophthamlology * Had been on 20mg prednisone but did not receive on admission -- patient states he was supposed to be tapered to 10mg but patient unsure of date when he is supposed to decrease -- given acute illness, added 20mg daily to cover for stress dose steroids as well -- follow up with Rheum/ophthal as outpatient * Continue methotrexate as ordered --last dose due Saturday 08/11 (10) Diastolic CHF: * Per history, secondary to cor pulmonale * Continue furosemide and spironolactone * Monitor daily weights, strict I&Os (11) Chronic respiratory failure with hypoxia: * Patient had been weaned off O2 in the past * Currently 95% on 2L * Wean O2 to maintain sat >90% (12) Severe protein-calorie malnutrition: * Secondary to worsening Achalasia * Boost supplements (13) Hematuria: * UA on admission with 2+ blood, 10-30 RBC * No urinary symptoms currently, although patient with remote history of 10mm stone and sepsis admission in May 2019 * H/h down to 11.2/37.4 -- some component of dilution from IVF, however patient with worsening dysphagia requiring intervention -- may need sooner if patient declines * Urology consulted - recommend dc with Mendiola and TOV in 2-3 days at rehab facility. Replace Mendiola if no void in 8 hours and follow up with urology (14) Elevated bilirubin: * resolved (15) Sleep apnea: * Per patient, has diagnosis but has been unable to tolerate CPAP (16) Depressive disorder: * Patient initially received both wellbutrin 150mg as well as effexor 225mg on 08/08 * When reviewing medications with patient when coming on service, he states he only takes 225mg effexor daily, and was confirmed with patient/medication list in patient's phone * Discontinued wellbutrin (17) DVT prophylaxis: * SCDs Dispo: DC to [facility] Wednesday - will go from [facility] to outpatient appointment on Wednesday for POEM procedure Subjective Mr. Juarez feels ok today. He has no new complaints. Continues to have some tenderness left elbow. ROS Constitutional: no chills, aches, sweats or fever Respiratory: no sob,cough, sputum, or wheezing Cardiac: no chest pain, palpitations, edema, orthopnea or lightheadedness GI: no abdominal pain, nausea, vomiting, diarrhea or constipation : no dysuria or hesitancy Extremities: see HPI Skin: no rash All other systems reviewed and negative Physical Exam Physical Exam: General: no distress Eyes: normal inspection, PERLL Respiratory: chest non tender, clear to auscultation, normal breath sounds, no respiratory distress, no accessory muscle use Cardiac: regular rate and rhythm, no rub or gallop, no murmur, no edema, no jvd GI/: active bowel sounds, no abd pain or tenderness, soft, non distended Extremities: normal range of motion, normal strength, left elbow erythema and tender with boggy erythema Neuro/Psych: alert and oriented x 3, normal mood and affect Skin: normal color, dry Results & Data Vital Signs (Past 12 Hours) Vital Signs Temp Pulse Resp BP Pulse Ox 08/12/19 15:08 37.1 C 87 16 125/71 94 08/12/19 07:12 37.1 C 93 H 17 122/74 92 PG Care Time/CCT Total # of Minutes Spent Total Time Spent with Patient: Total time spent is greater than 50% in coordination of care (as documented) at patient's floor/unit and/or counseling patient:
[2019-08-12] MEDS: ENOXAPARIN INJ 40 MG/0.4 ML SYR SQ SCH (20:42)
[2019-08-12] MEDS: SIMVASTATIN 40 MG TAB PO SCH (20:42)
[2019-08-13] MEDS: OXYCODONE/ACETAMINOPHEN 10-325 TAB PO PRN ×3 (01:26→18:06)
[2019-08-13] MEDS: VANCOMYCIN HCL 1,250 MG in SODIUM CHLORIDE 0.9% 250 ML IV SCH ×2 (06:06→20:58)
[2019-08-13 06:41] LABS: Creatinine Clr Calc Pharmacy 94.8 ml/min; Est GFR (African American) 99.8; Est GFR (Non-African American) 86.1
[2019-08-13] MEDS: predniSONE 20 MG TAB PO SCH (09:06)
[2019-08-13] MEDS: CHOLECALCIFEROL 1,000 UNITS TAB PO SCH (09:06)
[2019-08-13] MEDS: FUROSEMIDE 40 MG TAB PO SCH ×2 (09:07→18:06)
[2019-08-13] MEDS: SPIRONOLACTONE 25 MG TAB PO SCH ×2 (09:07→18:06)
[2019-08-13] MEDS: PANTOprazole 40 MG TAB PO SCH ×2 (09:08→20:17)
[2019-08-13] MEDS: FOLIC ACID 1 MG TAB PO SCH ×2 (09:08→20:16)
[2019-08-13] MEDS: ARIPiprazole 5 MG TAB PO SCH (09:08)
[2019-08-13] MEDS: cefTRIAXone SODIUM 2,000 MG in DEXTROSE 5% 50 ML IV SCH (09:48)
[2019-08-13] MEDS: TAMSULOSIN HCL 0.4 MG CAP PO SCH (10:24)
[2019-08-13] MEDS: VENLAFAXINE HCL XR 150 MG CAPXR PO SCH (10:24)
[2019-08-13] MEDS: VENLAFAXINE HCL XR 75 MG CAPXR PO SCH (10:25)
[2019-08-13] MEDS: CYANOCOBALAMIN 1000 MCG/ML VIAL IM SCH (10:26)
--- NOTE | 2019-08-13 16:32 | Hospitalist Progress Note ---
Date of Service August 13, 2019 Assessment & Plan (1) Failure to thrive: * Failure to thrive is likely secondary to ongoing malnutrition and deconditioning. Patient has significant achalasia. Outpatient follow up with [facility] scheduled for 08/15 for POEM procedure. * Liquid diet as tolerated, boost supplementation * PT/OT -- rec inpatient rehab at d/c * CRP/ESR trending down-- of note, patient with temporal arteritis (diagnosed May 2019) and on methotrexate and prednisone * Procalcitonin 0.06, TSH 1.010 wnl, mild leukocytosis probably secondary to chronic steroid use now resolved (2) Right foot ulcer: * Right distal third toe * X- ray with concerns for osteo -- per ortho, no surgical intervention at this time * Warm soaks, saline rinse, Betadine * Wound RN * --> will need follow up with Podiatry, Dr. Lotfon * PICC placed so patient can DC with IV abx vanc and ceftriaxone (3) Achalasia: * Patient is known locally by Dr. Segura, seen by Dr. Martinez here -patient has been refractory to dilatation or other interventions so no invasive interventions per GI, await [place] follow up * Patient does have a standing appointment at [facility] on 08/15 for POEM procedure. I did speak with [facility] surgery and unfortunately only one physician performs that procedure and he will not return until 08/15 so that date is the earliest he could be treated. They did not feel that transfer was necessary. Patient's nutrition should be supported until able to attend 08/15 appt. I did suggest Coresafe NG with feeds but Mr. Juarez declined. He knows he is an aspiration risk with trying to swallow past his achalasia but he does not want to do a tube. * Full Liquid diet -- tolerating some * Continue pantoprazole * ASA has been held in case of intervention and at this point he will see his [place] doctor in a few days so will continue to hold (4) Acute dehydration: * dc IVF - resolved * Furosemide, spironolactone resumed (5) Chronic pulmonary aspiration: * Secondary to worsening Achalasia * On vanco/ceftriaxone for osteomyelitis (6) Hypokalemia: * replaced * continue spironolactone (7) Traumatic bursitis: * Ortho consult - Continue conservative treatment: ice, elevation, protection with egg crate. Activities as tolerated. Continue antibiotics. No surgical intervention at this time. Follow-up after discharge from hospital in 1-2 week for re-evaluation, and following discharge for upcoming GI procedure. Please call [phone] for appointments for ortho and podiatry. * Continue IV abx vanco/ceftriaxone (8) Macrocytosis: * MCV 100.6 * Likely secondary to methotrexate use -- patient on folic acid 1mg BID * Folate >24.0 and B12 low normal at 220 * Will give supplementation -- follow up outpatient (9) Temporal arteritis: * Follows locally with Dr. Melchor and Ophthamlology * Had been on 20mg prednisone but did not receive on admission -- patient states he was supposed to be tapered to 10mg but patient unsure of date when he is s upposed to decrease -- given acute illness, added 20mg daily to cover for stress dose steroids as well -- follow up with Rheum/ophthal as outpatient * Continue methotrexate as ordered --last dose due Saturday 08/11 (10) Diastolic CHF: * Per history, secondary to cor pulmonale * Continue furosemide and spironolactone * Monitor daily weights, strict I&Os (11) Chronic respiratory failure with hypoxia: * Patient had been weaned off O2 in the past * Currently 95% on 2L * Wean O2 to maintain sat >90% (12) Severe protein-calorie malnutrition: * Secondary to worsening Achalasia * Boost supplements (13) Hematuria: * UA on admission with 2+ blood, 10-30 RBC * No urinary symptoms currently, although patient with remote history of 10mm stone and sepsis admission in May 2019 * H/h down to 11.2/37.4 -- some component of dilution from IVF, however patient with worsening dysphagia requiring intervention -- may need sooner if patient declines * Urology consulted - recommend dc with Mendiola and TOV in 2-3 days at rehab facility. Replace Mendiola if no void in 8 hours and follow up with urology (14) Elevated bilirubin: * resolved (15) Sleep apnea: * Per patient, has diagnosis but has been unable to tolerate CPAP (16) Depressive disorder: * Patient initially received both wellbutrin 150mg as well as effexor 225mg on 08/08 * When reviewing medications with patient when coming on service, he states he only takes 225mg effexor daily, and was confirmed with patient/medication list in patient's phone * Discontinued wellbutrin (17) DVT prophylaxis: * SCDs Dispo: DC to [facility] Wednesday - will go from [facility] to outpatient appointment on Wednesday for POEM procedure Subjective Mr. Juarez has no complaints today. He feels his swallowing is about the same. ROS Constitutional: no chills, aches, sweats or fever Respiratory: no sob,cough, sputum, or wheezing Cardiac: no chest pain, palpitations, edema, orthopnea or lightheadedness GI: no abdominal pain, nausea, vomiting, diarrhea or constipation : no dysuria or hesitancy Extremities: no joint pain or weakness Skin: no rash All other systems reviewed and negative Physical Exam Physical Exam: General: no distress Eyes: normal inspection, PERLL Respiratory: chest non tender, clear to auscultation, normal breath sounds, no respiratory distress, no accessory muscle use Cardiac: regular rate and rhythm, no rub or gallop, no murmur, no edema, no jvd GI/: active bowel sounds, no abd pain or tenderness, soft, non distended Extremities: normal range of motion, left elbow erythema/edema improving Neuro/Psych: alert and oriented x 3, normal mood and affect Skin: normal color, dry Results & Data Vital Signs (Past 12 Hours) Vital Signs Temp Pulse Resp BP Pulse Ox 08/13/19 15:19 37 C 96 H 18 109/70 96 08/13/19 07:21 36.9 C 90 20 145/82 H 95 PG Care Time/CCT Total # of Minutes Spent Total Time Spent with Patient: Total time spent is greater than 50% in coordination of care (as documented) at patient's floor/unit and/or counseling patient:
[2019-08-13] MEDS: SIMVASTATIN 40 MG TAB PO SCH (20:17)
[2019-08-13] MEDS: ENOXAPARIN INJ 40 MG/0.4 ML SYR SQ SCH (20:18)
[2019-08-14] MEDS: ARIPiprazole 5 MG TAB PO SCH (08:30)
[2019-08-14] MEDS: VENLAFAXINE HCL XR 75 MG CAPXR PO SCH (08:30)
[2019-08-14] MEDS: SPIRONOLACTONE 25 MG TAB PO SCH (08:30)
[2019-08-14] MEDS: TAMSULOSIN HCL 0.4 MG CAP PO SCH (08:30)
[2019-08-14] MEDS: CHOLECALCIFEROL 1,000 UNITS TAB PO SCH (08:30)
[2019-08-14] MEDS: predniSONE 20 MG TAB PO SCH (08:30)
[2019-08-14] MEDS: VENLAFAXINE HCL XR 150 MG CAPXR PO SCH (08:30)
[2019-08-14] MEDS: FOLIC ACID 1 MG TAB PO SCH (08:30)
[2019-08-14] MEDS: PANTOprazole 40 MG TAB PO SCH (08:30)
[2019-08-14] MEDS: OXYCODONE/ACETAMINOPHEN 10-325 TAB PO PRN ×2 (08:31→16:08)
[2019-08-14] MEDS: FUROSEMIDE 40 MG TAB PO SCH (08:31)
[2019-08-14] MEDS: cefTRIAXone SODIUM 2,000 MG in DEXTROSE 5% 50 ML IV SCH (09:25)
[2019-08-14] MEDS ORDERED: VANCOMYCIN TROUGH ONE (09:30)
[2019-08-14] MEDS: VANCOMYCIN HCL 1,250 MG in SODIUM CHLORIDE 0.9% 250 ML IV SCH (09:55)
--- NOTE | 2019-08-14 10:58 | Pharmacy Report ---
Pharmacy Abx Dose Short Note - Date of Service August 14, 2019 - Assessment & Plan Assessment 74 year old M receiving vancomycin and Rocephin for treatment of concerns of osteomyelitis Day # 8 of antimicrobial therapy. Plan Vancomycin * Trough level of 21.5 mcg/mL is supratherapeutic * Change to 1000 mg IV every 12 hours (start 4 hours after dose due) * Goal trough level for osteomyelitis : 15 to 20 mcg/mL * For discharge, recommend checking vancomycin trough after the 5th dose ... patient will need at least weekly vancomycin troughs and monitoring of kidney function. * cannot guarantee that this dose will produce therapeutic troughs. This is a dose reduction due to chronic supratherapeutic levels. Pharmacy will continue to follow and will adjust dose/frequency as necessary. Thank you.
--- NOTE | 2019-08-14 11:06 | Pharmacy Report ---
Pharmacy Abx Dose Short Note - Date of Service August 14, 2019 - Assessment & Plan Assessment 74 year old M receiving [] for treatment of [] Day # []/[] of antimicrobial therapy. Plan Vancomycin * Trough level of [] mcg/mL is [therapeutic][subtherapeutic][supratherapeutic] * Continue dose of [] mg IV every [] hours OR Change to [] mg IV every [] hours * Goal trough level for [] : [] to [] mcg/mL * Trough or random level ordered for: []/[]/[] Pharmacy will continue to follow and will adjust dose/frequency as necessary. Thank you.
--- NOTE | 2019-08-14 17:00 | Discharge Summary ---
Date of Service August 14, 2019 Admission HPI Per Admitting Provider This is a 74-year-old male with a past medical history of recently diagnosed achalasia, hyperlipidemia, hypokalemia that presents today complaining of dysphasia and generalized weakness. Patient is a somewhat limited historian but is accompanied by multiple family members. Patient has been on a liquid diet exclusively secondary to his problems with achalasia. He can swallow there is a tendency to spit up soon after. He denies any diarrhea or abdominal pain. He recently had esophageal manometry on 07/18 that was read as a moderate achalasia. Patient had follow-up and was scheduled for esophageal dilation on 08/15 at [facility]. He misses his appointment which was made. Up until today, patient has been having slowly worsening generalized weakness. Patient is understandably frustrated as he cannot consume solid food and the family tells me that his ability to tolerate liquids is getting worse. They also noticed progressive deconditioning, having difficulty managing the patient at home due to his weakness. Patient was previously independent but is now having significant difficulty, which prompted his presentation to the emergency room. Family denies any fever, chills, worsening cough, other worsening symptoms with the patient. The patient was afebrile with normal blood pressure at time of evaluation. He does have been a work-up revealed a leukocytosis and mildly elevated lactate level the patient has no other signs of acute infection. As a side issue, patient did have a fall 3 days prior to presentation. He did not hit his head or have loss of consciousness and attributes this to his generalized weakness. However, he did strike his left elbow. Although the elbow was fine initially, and his since become significantly inflamed and painful for the patient. X-ray showed traumatic bursitis with a fractured enthesophyte at the insertion of the triceps tendon. Admission Exam Per Admitting Provider Constitutional: + overweight; not in distress ENMT: Mouth: oral mucous membranes not dry Neck: trachea midline, no thyromegaly Respiratory: normal respiratory effort Auscultation: lungs clear to auscultation bilaterally; no crackles and no wheezes Cardiovascular: Rate/Rhythm: regular rate and regular rhythm Heart Sounds: normal S1 and normal S2 Vessels: no JVD and no carotid bruit Gastrointestinal (Abdomen): Inspection/Auscultation: abdomen normal to inspection and normal bowel sounds; abdomen not distended Percussion/Palpation: abdomen soft Musculoskeletal: Left elbow with edematous bursa. Small wound, healed appropriately. Nontender, minimally erythematous. Mild tender to touch. Psychiatric: A+Ox3, euthymic affect Genitourinary: Thorne catheter, clear yellow urine in bag Principal Diagnosis Failure to thrive, Achalasia Discharge Exam General: Resting comfortably HEENT: NC/AT; PERRLA with EOMI; Mcdermott conjunctiva, MMM. No erythema of posterior pharynx Neck: Supple and nontender Cardiac: RRR Lungs: CTA bilaterally Abdomen: Bowel normoactive X 4; Nontender to palpation : Thorne with clear yellow output Extremities: Warm. No edema present Neuro: No focal weakness Skin: No rash Discharge Data Allergies Allergy/AdvReac Type Severity Reaction Status Date / Time No Known Allergies Allergy Unknown Verified 08/07/19 15:11 Consultations 08/07/19 15:33 Consult Orthopedic Surgery Routine 08/07/19 15:46 ED Decision to Admit Stat 08/07/19 17:44 Consult Gastroenterology Routine 08/09/19 15:41 Consult Urology Routine Ordered Studies 08/07/19 14:23 CT head/brain wo con Stat 08/10/19 09:36 US renal/blad retro comp Routine CXR 08/07, 08/11 Hospital Course (1) Failure to thrive: Failure to thrive is likely secondary to ongoing malnutrition and deconditioning. Patient has significant achalasia. Outpatient follow up with [facility] scheduled for 08/15 for POEM procedure. Liquid diet as tolerated, boost supplementation PT/OT -- discharged to [facility]. CRP/ESR trending down-- of note, patient with temporal arteritis (diagnosed May 2019) and is on methotrexate and prednisone Procalcitonin 0.06, TSH 1.010. (2) Right foot ulcer: Right distal third toe. X-ray with concerns for osteo -- per ortho, no surgical intervention at this time Warm soaks, saline rinse, Betadine Will need to f/u with podiatry, Dr. Lofton. PICC placed; continue Ceftriaxone and Vanco for 4-6 weeks. Consider d/c'ing Vanco -- MRSA swab was not collected during this admission but was previously neg in May 2019. (3) Achalasia: Patient is known locally by Dr. Segura, seen by Dr. Martinez here -patient has been refractory to dilatation or other interventions so no invasive interventio ns per GI, await [facility] follow up Standing appointment at [facility] on 08/15 for POEM procedure. Suggested Coresafe NG with feeds but Mr. Juarez declined. He knows he is an aspiration risk with trying to swallow past his achalasia but he does not want to do a tube. Full Liquid diet. Pantoprazole ASA has been held in case of intervention. (4) Acute dehydration: Resolved. Resumed Lasix and Spironolactone. (5) Chronic pulmonary aspiration: Secondary to worsening Achalasia On vanco/ceftriaxone for osteomyelitis (6) Hypokalemia: Replaced as needed. (7) Traumatic bursitis: Ortho consulted - recommended to continue conservative treatment: ice, elevation, protection with egg crate. Activities as tolerated. Continue antibiotics. No surgical intervention at this time. Follow-up after discharge from hospital in 1-2 week for re-evaluation. (8) Macrocytosis: MCV 100.6 Likely secondary to methotrexate use -- patient on folic acid 1mg BID Folate >24.0 and B12 low normal at 220 Continue supplementation as outpatient. (9) Temporal arteritis: Follows locally with Dr. Melchor and Ophthamlology Had been on 20mg prednisone but did not receive on admission -- patient states he was supposed to be tapered to 10mg but patient unsure of date when he is supposed to decrease -- given acute illness, added 20mg daily to cover for stress dose steroids as well. Will taper to 10 mg daily on discharge. F/u with rheumatology. Recommend to hold Methotrexate in setting of acute illness (10) Diastolic CHF: Per history, secondary to cor pulmonale Continued furosemide and spironolactone (11) Chronic respiratory failure with hypoxia: Patient had been weaned off O2 in the past Currently requiring 1L via NC. (12) Severe protein-calorie malnutrition: Secondary to worsening Achalasia (13) Hematuria: UA on admission with 2+ blood, 10-30 RBC No urinary symptoms currently, although patient with remote history of 10mm stone and sepsis admission in May 2019 Anemia -- some component of dilution from IVF, however patient with worsening dysphagia requiring intervention. Urology consulted - recommend d/c with Thorne and TOV in 2-3 days at rehab facility. (14) Elevated bilirubin: Now resolved. (15) Sleep apnea: Per patient, has diagnosis but has been unable to tolerate CPAP (16) Depressive disorder: Patient initially received both wellbutrin 150mg as well as effexor 225mg on 08/08 When reviewing medications with patient, he stated he only takes 225mg effexor daily, and was confirmed with patient/medication list in patient's phone Discontinued wellbutrin (17) DVT prophylaxis: SCDs. Discharged to [facility] on 08/14/19. Total Time Total Time Spent Total Time Spent (In Minutes): >30 minutes Total Time Includes: Examination of the Patient, Discharge Planning, Medication Reconciliation, Communication With Other Providers and Other Discharge Plan Discharge Items Patient Disposition: Transfer [facility] Reason For Visit: FAILURE TO THRIVE Discharge Diagnosis: Failure to thrive, Achalasia Condition on Discharge: Fair Goals: You have been hospitalized for an acute medical problem. During your stay at [facility], we have made an effort to correct the problem that brought you to the hospital while keeping you as comfortable as possible. Medications were used to bring your condition under control and your discharge instructions will include directions for any medications you should take after leaving the hospital. Please make sure you see your Primary Care Provider as part of your follow up plan. Activity: As commented below Activity Comment: Per PT/OT recs. Non-emergency contact: Primary Care Provider, Community Nurse and Urologist Call non-emergency contact if: you have any medication questions, your symptoms worsen, you have a fever, your wound has increased redness, your wound has increased drainage and your wound pain has increased Follow-up/Referrals: Ovidio Donovan MD [Primary Care Provider] - Jonny Chen DO [Physician] - 08/23/19 2:20 pm Diet: Full liquid Addtl Attending Provider Instructions: 1. Failure to thrive in setting of malnutrition/achalasia * Please continue full liquid diet as tolerated. * Please follow up for POEM procedure as scheduled on 08/15/19. * Please follow up with GI in the outpatient clinic as scheduled. 2. Right foot ulcer * Please continue Ceftriaxone 2 gm IV daily and Vancomycin with monitoring of trough levels as noted below: - Vancomycin 1000 mg IV every 12 hours (start 4 hours after dose due) - Goal trough level for osteomyelitis : 15 to 20 mcg/mL - For discharge, recommend checking vancomycin trough after the 5th dose ... patient will need at least weekly vancomycin troughs and monitoring of kidney function. cannot guarantee that this dose will produce therapeutic troughs. This is a dose reduction due to chronic supratherapeutic levels. * Continue warm soaks, saline rinse and betadine cleansing daily for topical wound care. * Pt. will need to follow up with Dr. Lofton as an outpatient -- please schedule this appointment. * Continue IV antibiotics for at least 4 weeks (up to 6 weeks) for treatment of early osteomyelitis. * Please hold home Methotrexate in setting of acute infection -- discuss resuming this med with rheumatology and orthopedics. 3. Traumatic Bursitis * Please continue ice, elevation and protection with egg crate. * Please schedule follow up with orthopedics as an outpatient -- contact [phone] for an appointment with Dr. Walsh. 4. Temporal arteritis * Please continue Prednisone -- dose can be tapered to 10 mg daily. * Please schedule follow up with rheumatology to discuss further taper of steroids & resuming Methotrexate. 5. Urinary Retention * Please maintain thorne catheter for 2-3 days. * Pt. will need voiding trial in a few days. * Please follow up with urology as scheduled on 08/23/18. 6. You will be discharged to [facility] for PT/OT service. Pending Studies at Discharge: No Stand-Alone Forms: My [facility] Skilled Items Patient informed of condition?: Yes DNR: No Discharge Level of Care: Skilled Communicable Disease: No Discharge Prognosis: Stable Lines: PICC Urinary Catheter: Yes Medications and DC Order Prescriptions: New ceftriaxone 2 gram recon soln 2 gm IV DAILY Qty: 1 RF: 0 vancomycin 1,000 mg recon soln 1 gm IV Q12H Qty: 1 RF: 0 cyanocobalamin (vitamin B-12) 1,000 mcg capsule 1,000 mcg PO DAILY Qty: 30 RF: 0 Continued hyoscyamine sulfate 0.125 mg tablet, sublingual 0.125 mg SL Q4H PRN (Reason: dyspepsia) Qty: 30 RF: 1 furosemide 40 mg tablet 40 mg PO BID Qty: 180 RF: 0 folic acid 1 mg tablet 1 mg PO BID Qty: 180 RF: 0 pantoprazole 40 mg tablet,delayed release (DR/EC) 40 mg PO BID Qty: 60 RF: 0 simvastatin 40 mg tablet 40 mg PO QPM Qty: 90 RF: 0 spironolactone 25 mg tablet 25 mg PO BID Qty: 180 RF: 0 tamsulosin 0.4 mg capsule 0.4 mg PO QAM Qty: 90 RF: 0 venlafaxine 75 mg capsule,extended release 24hr 75 mg PO QAM Qty: 90 RF: 0 venlafaxine 150 mg capsule,extended release 24hr 150 mg PO QAM Qty: 90 RF: 0 ergocalciferol (vitamin D2) 1,000 unit capsule 1,000 units PO DAILY RF: 0 clonazepam 0.5 mg Tablet 0.5 mg PO BID PRN (Reason: Anxiety) RF: 0 docusate sodium [Stool Softener] 100 mg Capsule 100 mg PO DAILY PRN (Reason: Constipation) RF: 0 aripiprazole 5 mg tablet 5 mg PO DAILY RF: 0 Changed potassium chloride 20 mEq tablet extended release 20 meq PO BID Qty: 360 RF: 0 Discontinued prednisone 20 mg tablet 20 mg PO .COMPLEX Qty: 42 RF: 0 oxycodone-acetaminophen 10-325 mg tablet 1 tab PO Q4H PRN (Reason: pain) Qty: 150 RF: 0 methotrexate sodium 2.5 mg tablet 7.5 mg PO .COMPLEX RF: 0 aspirin [Aspirin Low Dose] 81 mg Tablet,Delayed Release (Dr/Ec) 81 mg PO QAM RF: 0 bupropion HCl [Wellbutrin SR] 150 mg Tablet Sustained-Release 12 Hr 150 mg PO DAILY RF: 0 Discharge Orders: Discharge Order (Routine); Ordered 08/14/19 Ordered By: Rosario Carpio/Other Patient Handouts: Post Op Pain Manage Home Meds Admission Data Admit Date/Time: 08/07/19 16:36 Attending Provider: Rosario Yi Admit Provider: Jose Alberto Kenyon Primary Care Provider: Ovidio Donovan Other Providers: Monico Walsh ; Mitchell Segura ; Angie Knox at [place] ; Neftali Murphy Other Interventions: Discharge Summary Assessment (RN) Last Done: 08/14/19 14:43 DC Date/Time DO NOT enter until pt leaves facility: 08/14/19 16:36 Supervising Physician Co-Signing Physician Notes PA Supervision Note: I personally saw and examined the patient. I verified all alvarez points and agree with FLOR Sanabria with the following exceptions and/or additions: Patient feeling much better, left elbow is improved, toes being treated with IV antibiotics for osteomyelitis Denies chest pain or shortness of breath, no abdominal pains. Stable for discharge with plan as above Vitals reviewed Gen: AAOx3, NAD, hard of hearing HEENT: Anicteric sclerae, EOMI CV: RRR no mgr nl S1S2 Pulm: CTAB no wcr Abd: +BS soft NT ND no masses or hernias Ext: No edema, 1+ DP pulses, right third toe with ulceration and mild edema, no erythema, no drainage, left elbow with mild erythema, no bursitis, small scab over olecranon Skin: As above Neuro: Full strength throughout
[2019-08-15] MEDS ORDERED: VANCOMYCIN HCL 1,000 MG in SODIUM CHLORIDE 0.9% 250 ML IV SCH (02:00)
[2019-08-20] MEDS ORDERED: CYANOCOBALAMIN 1000 MCG/ML VIAL IM SCH (08:00)
== END 2019-08-14 16:36 | DRG 557 ==
LOC: ED 13:58 → SUATTDRO 16:36 → 3N 16:36

== ENCOUNTER 2019-09-13 00:55 | Inpatient (IN) ==
[2019-09-13] MEDS ORDERED: SODIUM CHLORIDE 0.9% 1000ML 500 ML IV ONE (01:28)
[2019-09-13] MEDS ORDERED: fentaNYL citrate 100 MCG/2 ML VIAL IV STA (01:28)
[2019-09-13 01:56] LABS: Basophils # (auto) 0.05 K/uL (0-0.2); Basophils % (auto) 0.3 %; Eosinophils # (auto) 0.29 K/uL (0-0.5); Eosinophils % (auto) 1.8 %; Hematocrit (blood only) 34.8 % (42-52); Hemoglobin 11.4 g/dL (14.0-18.0); Immature Granulocytes % (auto) 0.6 %; Lymphocytes # (auto) 0.61 K/uL (1.2-3.4); Lymphocytes % (auto) 3.9 %; Mean Corpuscular Hemoglobin 32.4 pg (25-34); Mean Corpuscular Hgb Conc 32.8 g/dL (32-36); Mean Corpuscular Volume 98.9 fL (80-100); Mean Platelet Volume 9.7 fL (7.4-10.4); Monocytes # (auto) 1.54 K/uL (0.11-0.59); Monocytes % (auto) 9.7 %; Neutrophils # (auto) 13.23 K/uL (1.4-6.5); Neutrophils % (auto) 83.7 %; Platelet Count 272 K/uL (130-400); RDW Coefficient of Variation 16.1 % (11.5-14.5); RDW Standard Deviation 57.6 fL (36.4-46.3); Red Blood Count 3.52 M/uL (4.7-6.1); White Blood Count 15.82 K/uL (4.8-10.8)
[2019-09-13 02:13] LABS: INR 1.2 (0.9-1.1); Prothrombin Time 11.7 Seconds (9.0-12.0)
[2019-09-13 02:17] LABS: Alanine Aminotransferase 44 U/L (12-78); Albumin Level 2.5 gm/dl (3.4-5.0); Aspartate Aminotransferase 49 U/L (15-37); BUN Creatinine Ratio 15.7 (10-20); Bilirubin Direct 0.2 mg/dl (0-0.2); Blood Urea Nitrogen 13 mg/dl (7-18); Calcium 8.7 mg/dl (8.5-10.1); Carbon Dioxide 29 mmol/L (21-32); Chloride 104 mmol/L (98-107); Creatinine Clr Calc Pharmacy 101.9 ml/min; Est GFR (African American) 98.8; Est GFR (Non-African American) 85.2; Glucose 103 mg/dl (70-99); Magnesium 1.9 mg/dl (1.8-2.4); Potassium 3.5 mmol/L (3.5-5.1); Sodium 137 mmol/L (136-145)
[2019-09-13 02:25] LABS: Alkaline Phosphatase 154 U/L (45-117); Bilirubin,Total 0.5 mg/dl (0.2-1); Lipase 2111 U/L (73-393); NT Pro B Type Natriuretic Pept 406 pg/ml (0-900); Total Protein 6.9 gm/dl (6.4-8.2); Troponin I < 0.015 ng/ml (0-0.045)
[2019-09-13] MEDS ORDERED: CEFEPIME 2,000 MG/20 ML VIAL IV STA (02:37)
[2019-09-13] MEDS ORDERED: VANCOMYCIN HCL 2,500 MG in SODIUM CHLORIDE 0.9% 500 ML IV ONE (02:37)
[2019-09-13] MEDS ORDERED: VANCOMYCIN CONSULT ACTIVE PRN ×2 (02:37→06:31)
[2019-09-13] MEDS ORDERED: SODIUM CHLORIDE 0.9% 1000ML 1,000 ML IV ONE (02:38)
[2019-09-13] MEDS ORDERED: IOVERSOL 100ml IV PRN (03:18)
[2019-09-13 05:21] LABS: Appearance Urine Clear (Clear); Bilirubin Urine Negative (Negative); Blood Urine Negative (Negative); Color Urine Yellow; Glucose Urine UA Negative (Negative); Ketones Urine Negative (Negative); Leukocyte Esterase Urine Negative (Negative); Nitrite Urine Negative (Negative); Protein Urine Negative (Negative); Specific Gravity Urine 1.017 (1.000-1.030); Urobilinogen Urine Negative (Negative); pH Urine 7.5 (4.5-7.5)
--- NOTE | 2019-09-13 05:27 | Emergency Department Note ---
Entered by Last Foster acting as a scribe for ED Provider Note Name: Gio Juarez Age: 74 Arrives Via: EMS Informant: Headaches CC: Headaches HPI: The patient is a 74 year old male who presents to the emergency department with complaints of worsening headaches beginning a few days ago. The patient states that he has a history of temporal arteritis and has been having worsening headaches for the last few days. He notes that he has not taken any medication for his headaches. He reports that he has also been tachycardic for the last few days. The patient states that his prednisone dosage was reduced 4-5 days ago. He also complains of shakiness and weakness. He denies any abdominal pain, back pain, fever, and recent falls. He notes that he recently had a kidney stone. ROS: See above HPI for pertinent positives & negatives. A total of 10 systems reviewed and were otherwise negative. Past Medical History: Please see past medical history. Past Surgical History: Colonoscopy, nasal septoplasty, tonsillectomy Family History: hypertension, cancer, DVT Social History: Never smoker, does not use alcohol/drugs, single, lives alone Home Medications: Please see medication list Allergies: None Physical: Vitals: BP 130/64, Pulse 110, Resp 20, Temp 99.1 F, O2 Sat 96 Exam: GENERAL: Patient is ill appearing and in mild distress. Warm to touch. EYES: No scleral icterus, unremarkable pupils. ENT: Mucous membranes moist, no nasal congestion. NECK: No masses appreciated, no meningismus, trachea is midline. RESPIRATORY: No wheeze, no rhonchi. Junky cough with crackles in the bilateral lung angulo, dyspneic. CARDIOVASCULAR: Regular rhythm and tachycardic. No murmurs, rubs, gallops appreciated. GASTROINTESTINAL: Abdomen soft, no peritonitis. Bowel sounds positive. No masses appreciated. Vague epigastric tenderness to palpation, no peritonitis. BACK: No midline tenderness, no CVA tenderness EXTREMITIES: Normal motion all extremities, no cyanosis, no edema. NEUROLOGIC: Alert and oriented, no acute motor or sensory deficits, no focal weakness, cranial nerves grossly intact. SKIN: No rash, no jaundice, no diaphoresis. ED Course: Prior Medical Record, Triage/Nursing Notes, Medications, Allergies reviewed by 0121: The patient was evaluated in room B10. A complete history and physical exam was performed. 0126: The nurse notes that the patient lost bowel and bladder control upon arrival to the emergency department. 0326: I rechecked the patient. His heart rate is coming down and he is feeling better. He is still mildly tachycardic and tired appearing. 0357: Dr. Farah - Hospitalist, [facility], was paged. 0411: Upon reevaluation, the patient is stable. I discussed the findings and the treatment plan with the patient. He expresses agreement and understanding. I spoke with Dr. Farah of the [facility] Hospitalist Service. The patient will be evaluated for further management. GCS: 15 Vital Signs: reviewed and remarkable for Tachy Labs: Reviewed and remarkable for elevated wbc, esr, crp Interventions: saline lock, fentanyl 50mcg IV, nss bolus 1.5L IV, Vanco IV, Cefepime 2gm IV Imaging: CHEST X-RAY: X ray results are stated below per my interpretation: Chest: 1 view: Bilateral L>R infiltrates, no effusion, normal cardiac border. Radiology results as stated below per my review and the radiologist's interpre tation: CT HEAD: Comparison: 08/07/2019. Mild involutional changes. No change from prior exam. 4mm low density in the leftcaudate head consistent with a small old lacunar infarct. Paranasal sinuses, mastoid air cells are clear. Radiologist: Shailesh Ratliff MD. CT ABDOMEN & PELVIS With Contrast: Compared to 05/31/19. Minimal peripancreatic stranding, possible pancreatitis in the appropriate clinical setting. Prominent pancreatic duct in the head and body. No fluid collection. Mildly distended gallbladder. Renal vascular calcifications and/or nonobstructing calculi. Slight prominence of the right renal collecting system without definite ureteral stone. Slight wall thickening of the right renal pelvis. Correlate clinically regarding inflammatory/infectious process. Questionable punctate stone in the dependent bladder versus wall calcification. Mildly thickened underdistended bladder. Mild fluid in small bowel loops, nonspecific, enteritis not excluded in the appropriate clinical setting. Normal caliber appendix. Bibasilar atelectasis/scarring or infiltrate. Additional incidental findings. Radiologist: Antonia Christianson MD. EKG: Per My Interpretation: Indication Sepsis: Sinus Tach 123 bpm, qtc 449. No Ectopy. No Ischemia. Compared to EKG 08/07/19 HR increased, Morphology similar with pacs Consults: 0411: I reviewed the patient's case with Dr. Farah - Hospitalist, [facility] [place]. He will evaluate the patient for further management. Blood pressure: Normal. No Referral necessary Disposition: Hospitalization Differential Diagnosis includes but is not limited to dehydration, stroke, anemia, hypoglycemia, hyponatremia, hypernatremia, urinary tract infection, pneumonia, bronchitis, sepsis, gastroenteritis, additional abdominal pathology, metabolic abnormalities and infections. Medical Decision Makin yr old chronically unwell male with multiple medical issues and previous aspiration pneumonia arrives for worsening weakness, headache and tachycardia. He relates this to recent drop in prednisone dosing for his temporal arteritis. He is tachycardic on arrival and poor lung exams. Bilateral infiltrates on CXR. With abdo TTP and elevated lipase CT done reveals pancreatitis no clear surgical indication though GB is somewhat distended. Vanco/Cefepime ordered empirically. UA negative. Patient with good BP and HR starting to improve with fluids. LA OK and thus will hold on further fluid boluses. Patient does not have evidence of meningitis by exam and no neck stiffness nor meningeal signs. Impression: Sepsis, bilateral pneumonia, pancreatitis Angel Iqbal MD The scribe's documentation has been prepared under my direction and personally reviewed by me in its entirety. I confirm that the note above accurately reflects all work, treatment, procedures, and medical decision making performed by me. Impression & Plan Sepsis, Bilateral pneumonia, Pancreatitis Past Med/Surg History Medical History (Updated 09/13/19 @ 04:24 by Last Foster) KAYKAY (acute kidney injury) (Acute) Anxiety Arrhythmia Bursitis (Acute) Chronic back pain Chronic obstructive pulmonary disease stopped inhalers Chronic pulmonary aspiration Chronic respiratory failure with hypoxia Degenerative disc disease Depression Depressive disorder (Chronic) GERD (gastroesophageal reflux disease) History of pneumonia (Resolved) Hyperlipidemia Hypertension Hypoxia (Acute) Kidney stone (Acute) Kidney stones Left lower lobe pneumonia (Acute) On home oxygen therapy 3lpm prn Osteoarthritis PAC (premature atrial contraction) Peripheral neuropathy bilateral hands & feet Pneumonia Prostate cancer (Resolved 02/17/11) "Rising PSA Status post ultrasound-guided biopsy 02/17/2011 Adenocarcinoma [place] 3+3 1 and 14 cores positive less than 5% Watchful waiting Rebiopsy 05/18/2014 reveals adenocarcinoma Zach[place] 3+3, 1 of 14, 50% of the core Watchful waiting Rebiopsy 06/19/2014 reveals a adenocarcinoma Zach[place] 3+4, 8 of 13 cores pos itive with increased percentages up to 80% Status post hormonal suppression with 1 injection of Lupron Status post prostate seed implant 09/18/2014 received 8500 cGy, 48 seeds placed Status post external beam treatment with IMRT/IGRT completed 12/19/2014 received 4500 cGy" On 01/25/15 10:17 Kaylin M Gabriella wrote "Rising PSA Status post ultrasound-guided biopsy 02/17/2011 Adenocarcinoma Zachary 3+31 and 14 cores positive less than 5% Watchful waiting Rebiopsy 05/18/2014 reveals adenocarcinoma [place] 3+3, 1 of 14, 50% of the core Watchful waiting Rebiopsy 06/19/2014 reveals a adenocarcinoma Zachary 3+4, 8 of 13 cores positive with increased percentages Status post hormonal suppression with 1 injection of Lupron Status post prostate seed implant 09/18/2014 received 8500 cGy, 48 seeds placed Status post external beam treatment with IMRT/IGRT completed 12/19/2014 rec eived 4500 cGy" Prostate cancer with radiation Sepsis (Acute) Sleep apnea non-compliant with cpap Tachycardia Temporal arteritis (Chronic) Weight loss, unintentional Surgical History H/O toe surgery History of arthroscopic surgery of shoulder bilateral History of colonoscopy History of nasal septoplasty History of tonsillectomy Hx of shoulder surgery open left shoulder Social History Preferred Language: Faroese Communication Ability: Effective Insurance Case Manager Required: No Beliefs That Will Affect Care: None marital status: Single Current Living Situation: Alone Feels Safe at Home: Yes Smoking Status: Never smoker Tobacco Type: cigarettes ; Second Hand Exposure: No ; Hx Alcohol Use: No Hx Substance Use: No Results & Data Vital Signs Vital Signs - 24 hr 09/13/19 01:00 09/13/19 01:33 09/13/19 01:56 Temperature 37.3 C Temperature Source Oral Pulse Rate 132 H 135 H 126 H Pulse Rate [Bilateral Apical] Pulse Rate from SpO2 Sensor 136 H 107 H Respiratory Rate 26 H 22 25 H Blood Pressure 151/82 H 151/82 H 138/74 Blood Pressure [Right Arm] Blood Pressure Mean 118 105 104 Blood Pressure Mean [Right Arm] Blood Pressure Position [Right Arm] Pulse Oximetry 90 90 97 Oxygen Delivery Method Room Air Nasal Cannula Oxygen Flow Rate 4 4 Sepsis Recent Fever Within 48 Hours Yes Sepsis Action Taken by Nursing No Action Required 09/13/19 01:57 09/13/19 02:15 09/13/19 02:17 Temperature Temperature Source Pulse Rate 130 H Pulse Rate [Bilateral Apical] 125 H 110 H Pulse Rate from SpO2 Sensor 123 H Respiratory Rate 22 15 20 Blood Pressure 130/64 Blood Pressure [Right Arm] 138/74 130/64 Blood Pressure Mean 93 Blood Pressure Mean [Right Arm] 95 86 Blood Pressure Position [Right Arm] Sitting Pulse Oximetry 97 94 96 Oxygen Delivery Method Nasal Cannula Nasal Cannula Nasal Cannula Oxygen Flow Rate 4 4 3 Sepsis Recent Fever Within 48 Hours Sepsis Action Taken by Nursing 09/13/19 02:30 09/13/19 02:41 09/13/19 02:42 Temperature Temperature Source Pulse Rate 124 H 121 H Pulse Rate [Bilateral Apical] 136 H Pulse Rate from SpO2 Sensor 130 H 120 H Respiratory Rate 20 19 20 Blood Pressure 122/63 Blood Pressure [Right Arm] 122/63 Blood Pressure Mean 84 Blood Pressure Mean [Right Arm] 82 Blood Pressure Position [Right Arm] Pulse Oximetry 96 95 95 Oxygen Delivery Method Nasal Cannula Oxygen Flow Rate 4 Sepsis Recent Fever Within 48 Hours Sepsis Action Taken by Nursing 09/13/19 03:19 09/13/19 03:20 09/13/19 03:22 Temperature Temperature Source Pulse Rate 122 H 122 H Pulse Rate [Bilateral Apical] 122 H Pulse Rate from SpO2 Sensor 121 H 120 H Respiratory Rate 19 22 20 Blood Pressure 119/61 Blood Pressure [Right Arm] 119/61 Blood Pressure Mean 77 Blood Pressure Mean [Right Arm] 80 Blood Pressure Position [Right Arm] Sitting Pulse Oximetry 95 95 96 Oxygen Delivery Method Nasal Cannula Nasal Cannula Oxygen Flow Rate 4 3 Sepsis Recent Fever Within 48 Hours Sepsis Action Taken by Nursing 09/13/19 04:41 Temperature Temperature Source Pulse Rate 125 H Pulse Rate [Bilateral Apical] Pulse Rate from SpO2 Sensor 126 H Respiratory Rate 18 Blood Pressure 130/92 Blood Pressure [Right Arm] Blood Pressure Mean 108 Blood Pressure Mean [Right Arm] Blood Pressure Position [Right Arm] Pulse Oximetry 96 Oxygen Delivery Method Nasal Cannula Oxygen Flow Rate 4 Sepsis Recent Fever Within 48 Hours Sepsis Action Taken by Detention Medications Current Medication List: was personally reviewed by me Laboratory Data Attestation: I reviewed the patient's lab results. Result diagrams: 09/13/19 01:44 09/13/19 01:44 Lab Results 09/13/19 09/13/19 09/13/19 Range/Units 01:44 01:44 01:44 WBC 15.82 H (4.8-10.8) K/uL RBC 3.52 L (4.7-6.1) M/uL Hgb 11.4 L (14.0-18.0) g/dL Hct 34.8 L (42-52) % MCV 98.9 (80-100) fL MCH 32.4 (25-34) pg MCHC 32.8 (32-36) g/dL RDW Std Deviation 57.6 H (36.4-46.3) fL RDW Coeff of Melba 16.1 H (11.5-14.5) % Plt Count 272 (130-400) K/uL MPV 9.7 (7.4-10.4) fL Immature Gran % (Auto) 0.6 % Neut % (Auto) 83.7 % Lymph % (Auto) 3.9 % Coles % (Auto) 9.7 % Eos % (Auto) 1.8 % Baso % (Auto) 0.3 % Immature Gran # (Auto) 0.10 H (0.00-0.02) K/uL Neut # (Auto) 13.23 H (1.4-6.5) K/uL Lymph # (Auto) 0.61 L (1.2-3.4) K/uL Coles # (Auto) 1.54 H (0.11-0.59) K/uL Eos # (Auto) 0.29 (0-0.5) K/uL Baso # (Auto) 0.05 (0-0.2) K/uL ESR > 90 H (0-14) mm/hr PT (9.0-12.0) Seconds INR (0.9-1.1) Sodium (136-145) mmol/L Potassium (3.5-5.1) mmol/L Chloride (98-107) mmol/L Carbon Dioxide (21-32) mmol/L Anion Gap (3-11) BUN (7-18) mg/dl Creatinine (0.6-1.4) mg/dl Est Cr Clr Drug Dosing ml/min Est GFR ( Amer) Est GFR (Non-Af Amer) BUN/Creatinine Ratio (10-20) Glucose (70-99) mg/dl Lactate 1.5 (0.4-2.0) mmol/L Calcium (8.5-10.1) mg/dl Magnesium (1.8-2.4) mg/dl Total Bilirubin (0.2-1) mg/dl Direct Bilirubin (0-0.2) mg/dl AST (15-37) U/L ALT (12-78) U/L Alkaline Phosphatase (45-117) U/L Troponin I (0-0.045) ng/ml C-Reactive Protein (0-0.29) mg/dl NT-Pro-B Natriuret Pep (0-900) pg/ml Total Protein (6.4-8.2) gm/dl Albumin (3.4-5.0) gm/dl Lipase (73-393) U/L Procalcitonin (0-0.5) ng/ml TSH (0.300-4.500) uIu/ml Urine Color Urine Appearance (Clear) Urine pH (4.5-7.5) Ur Specific [place] (1.000-1.030) Urine Protein (Negative) Urine Glucose (UA) (Negative) Urine Ketones (Negative) Urine Blood (Negative) Urine Nitrite (Negative) Urine Bilirubin (Negative) Urine Urobilinogen (Negative) Ur Leukocyte Esterase (Negative) 09/13/19 09/13/19 09/13/19 Range/Units 01:44 01:44 01:44 WBC (4.8-10.8) K/uL RBC (4.7-6.1) M/uL Hgb (14.0-18.0) g/dL Hct (42-52) % MCV (80-100) fL MCH (25-34) pg MCHC (32-36) g/dL RDW Std Deviation (36.4-46.3) fL RDW Coeff of Melba (11.5-14.5) % Plt Count (130-400) K/uL MPV (7.4-10.4) fL Immature Gran % (Auto) % Neut % (Auto) % Lymph % (Auto) % Coles % (Auto) % Eos % (Auto) % Baso % (Auto) % Immature Gran # (Auto) (0.00-0.02) K/uL Neut # (Auto) (1.4-6.5) K/uL Lymph # (Auto) (1.2-3.4) K/uL Coles # (Auto) (0.11-0.59) K/uL Eos # (Auto) (0-0.5) K/uL Baso # (Auto) (0-0.2) K/uL ESR (0-14) mm/hr PT 11.7 (9.0-12.0) Seconds INR 1.2 H (0.9-1.1) Sodium 137 (136-145) mmol/L Potassium 3.5 (3.5-5.1) mmol/L Chloride 104 (98-107) mmol/L Carbon Dioxide 29 (21-32) mmol/L Anion Gap 4.0 (3-11) BUN 13 (7-18) mg/dl Creatinine 0.85 (0.6-1.4) mg/dl Est Cr Clr Drug Dosing 101.9 ml/min Est GFR ( Amer) 98.8 Est GFR (Non-Af Amer) 85.2 BUN/Creatinine Ratio 15.7 (10-20) Glucose 103 H (70-99) mg/dl Lactate (0.4-2.0) mmol/L Calcium 8.7 (8.5-10.1) mg/dl Magnesium 1.9 (1.8-2.4) mg/dl Total Bilirubin 0.5 (0.2-1) mg/dl Direct Bilirubin 0.2 (0-0.2) mg/dl AST 49 H (15-37) U/L ALT 44 (12-78) U/L Alkaline Phosphatase 154 H (45-117) U/L Troponin I < 0.015 (0-0.045) ng/ml C-Reactive Protein 16.40 H (0-0.29) mg/dl NT-Pro-B Natriuret Pep 406 (0-900) pg/ml Total Protein 6.9 (6.4-8.2) gm/dl Albumin 2.5 L (3.4-5.0) gm/dl Lipase 2111 H (73-393) U/L Procalcitonin 0.43 (0-0.5) ng/ml TSH 2.070 (0.300-4.500) uIu/ml Urine Color Urine Appearance (Clear) Urine pH (4.5-7.5) Ur Specific [place] (1.000-1.030) Urine Protein (Negative) Urine Glucose (UA) (Negative) Urine Ketones (Negative) Urine Blood (Negative) Urine Nitrite (Negative) Urine Bilirubin (Negative) Urine Urobilinogen (Negative) Ur Leukocyte Esterase (Negative) 09/13/19 Range/Units 05:05 WBC (4.8-10.8) K/uL RBC (4.7-6.1) M/uL Hgb (14.0-18.0) g/dL Hct (42-52) % MCV (80-100) fL MCH (25-34) pg MCHC (32-36) g/dL RDW Std Deviation (36.4-46.3) fL RDW Coeff of Melba (11.5-14.5) % Plt Count (130-400) K/uL MPV (7.4-10.4) fL Immature Gran % (Auto) % Neut % (Auto) % Lymph % (Auto) % Coles % (Auto) % Eos % (Auto) % Baso % (Auto) % Immature Gran # (Auto) (0.00-0.02) K/uL Neut # (Auto) (1.4-6.5) K/uL Lymph # (Auto) (1.2-3.4) K/uL Coles # (Auto) (0.11-0.59) K/uL Eos # (Auto) (0-0.5) K/uL Baso # (Auto) (0-0.2) K/uL ESR (0-14) mm/hr PT (9.0-12.0) Seconds INR (0.9-1.1) Sodium (136-145) mmol/L Potassium (3.5-5.1) mmol/L Chloride (98-107) mmol/L Carbon Dioxide (21-32) mmol/L Anion Gap (3-11) BUN (7-18) mg/dl Creatinine (0.6-1.4) mg/dl Est Cr Clr Drug Dosing ml/min Est GFR ( Amer) Est GFR (Non-Af Amer) BUN/Creatinine Ratio (10-20) Glucose (70-99) mg/dl Lactate (0.4-2.0) mmol/L Calcium (8.5-10.1) mg/dl Magnesium (1.8-2.4) mg/dl Total Bilirubin (0.2-1) mg/dl Direct Bilirubin (0-0.2) mg/dl AST (15-37) U/L ALT (12-78) U/L Alkaline Phosphatase (45-117) U/L Troponin I (0-0.045) ng/ml C-Reactive Protein (0-0.29) mg/dl NT-Pro-B Natriuret Pep (0-900) pg/ml Total Protein (6.4-8.2) gm/dl Albumin (3.4-5.0) gm/dl Lipase (73-393) U/L Procalcitonin (0-0.5) ng/ml TSH (0.300-4.500) uIu/ml Urine Color Yellow Urine Appearance Clear (Clear) Urine pH 7.5 (4.5-7.5) Ur Specific [place] 1.017 (1.000-1.030) Urine Protein Negative (Negative) Urine Glucose (UA) Negative (Negative) Urine Ketones Negative (Negative) Urine Blood Negative (Negative) Urine Nitrite Negative (Negative) Urine Bilirubin Negative (Negative) Urine Urobilinogen Negative (Negative) Ur Leukocyte Esterase Negative (Negative) Administered Medications Ioversol (Optiray 320 100ml) 100 ml IV ONCE PRN PRN Reason: Interaction Checking Stop: 09/17/19 03:17 Last Admin: 09/13/19 03:18 Dose: 92 ml Documented by: [id number] Discontinued Medications Fentanyl Citrate (Fentanyl Citrate) 50 mcg IV NOW STA Stop: 09/13/19 01:29 Last Admin: 09/13/19 01:53 Dose: 50 mcg Documented by: [id number] Sodium Chloride (Nss 1000ml) 500 mls @ 999 mls/hr IV .Q31M ONE Stop: 09/13/19 01:58 Last Infusion: 09/13/19 02:43 Dose: 0 mls/hr Documented by: [id number] Admin: 09/13/19 01:53 Dose: 999 mls/hr Documented by: [id number] Cefepime HCl (Maxipime) 2,000 mg in 20 mls @ 5 mls/min IV NOW STA Stop: 09/13/19 02:40 Last Admin: 09/13/19 02:47 Dose: 5 mls/min Documented by: [id number] Vancomycin HCl 2,500 mg/ (Sodium Chloride) 550 mls @ 200 mls/hr IV NOW ONE Stop: 09/13/19 05:21 Last Admin: 09/13/19 03:17 Dose: 200 mls/hr Documented by: [id number] Sodium Chloride (Nss 1000ml) 1,000 mls @ 999 mls/hr IV .Q1H1M ONE Stop: 09/13/19 03:38 Last Infusion: 09/13/19 04:09 Dose: 0 mls/hr Documented by: [id number] Admin: 09/13/19 02:43 Dose: 999 mls/hr Documented by: [id number] Discharge Plan Visit Data Chief Complaint: Headache Stated Complaint: HEADACHE/CHILLS ED Provider: Angel Iqbal Discharge Problem: Sepsis, Bilateral pneumonia, Pancreatitis Patient Disposition: Being Evaluated by Hospitalist Forms Stand Alone Forms: [facility] Prescriptions Prescriptions: No Action hyoscyamine sulfate 0.125 mg tablet, sublingual 0.125 mg SL Q4H PRN (Reason: dyspepsia) Qty: 30 RF: 1 prednisone 10 mg tablet 10 mg PO QAM RF: 0 folic acid 1 mg tablet 1 mg PO QAM Qty: 180 RF: 0 pantoprazole 40 mg tablet,delayed release (DR/EC) 40 mg PO BID Qty: 60 RF: 0 simvastatin 40 mg tablet 40 mg PO QPM Qty: 90 RF: 0 spironolactone 25 mg tablet 25 mg PO BID Qty: 180 RF: 0 tamsulosin 0.4 mg capsule 0.4 mg PO QAM Qty: 90 RF: 0 venlafaxine 75 mg capsule,extended release 24hr 75 mg PO QAM Qty: 90 RF: 0 venlafaxine 150 mg capsule,extended release 24hr 150 mg PO QAM Qty: 90 RF: 0 clonazepam 0.5 mg Tablet 0.5 mg PO Q12 PRN (Reason: Anxiety) RF: 0 aripiprazole 5 mg tablet 5 mg PO QAM RF: 0 acetaminophen 325 mg Tablet 650 mg PO Q4 PRN (Reason: Fever Or Pain) RF: 0 furosemide 20 mg Tablet 20 mg PO QAM RF: 0 vancomycin 750 mg Recon Soln 750 mg IV BID RF: 0 potassium chloride 20 mEq tablet extended release 20 meq PO QAM RF: 0 cholecalciferol (vitamin D3) [Vitamin D3] 10 mcg (400 unit) Tablet 800 unit PO QAM RF: 0 ceftriaxone 2 gram recon soln 2 gm IV DAILY Qty: 1 RF: 0 cyanocobalamin (vitamin B-12) 1,000 mcg capsule 1,000 mcg PO DAILY Qty: 30 RF: 0 Referrals Referrals: Angie Knox at [place] [Primary Care Provider] - Discharge Problem: Sepsis Qualifiers: Sepsis type: sepsis due to unspecified organism Sepsis acute organ dysfunction status: unspecified Qualified Code(s): A41.9 - Sepsis, unspecified organism Bilateral pneumonia Qualifiers: Pneumonia type: due to unspecified organism Lung location: unspecified part of lung Qualified Code(s): J18.9 - Pneumonia, unspecified organism Pancreatitis Qualifiers: Chronicity: acute Pancreatitis type: unspecified pancreatitis type Acute pancreatitis complication: unspecified Qualified Code(s): K85.90 - Acute pancreatitis without necrosis or infection, unspecified The scribe's documentation has been prepared under my direction and personally reviewed by me in its entirety. I confirm that the note above accurately reflects all work, treatment, procedures, and medical decision making performed by me.
--- NOTE | 2019-09-13 06:05 | CT Scan Report ---
CT head/brain wo con CT DOSE: 687.98 mGy.cm HISTORY: Mental status change. Headache. diffuse headache TECHNIQUE: Multiaxial CT images of the head were performed without the use of intravenous contrast. A dose lowering technique was utilized adhering to the principles of ALARA. Comparison: 08/07/2019 Findings: The paranasal sinuses and mastoid air cells are clear. The calvarium and skull base are int act. The ventricles and sulci are within normal limits. There is no mass, hematoma, midline shift, or acute infarct. Impression: No acute intracranial abnormality. Age-related atrophy and chronic small vessel change ACT 112: Negative or not required by law. The above report was generated using voice recognition software. It may contain grammatical, syntax or spelling errors. Electronically signed by: Cuco Ruiz M.D. 09/13/2019 6:03 AM
--- NOTE | 2019-09-13 06:25 | History & Physical Report ---
Date of Service September 13, 2019 Assessment & Plan (1) Bilateral pneumonia: Admit PCU IV Vanco and IV Cefepime Consult ID for assistance with antibiotic regiment as he has been receiving IV Vanco and IV Rocephin as outpt due to R toe ulcer. Prn Duonebs DVT prophylaxis = SCDs and sub-q heparin. (2) Pancreatitis: Unexpected finding as patient had no symptoms Lipase 2111 po meds held at this time. NPO monitor Lipase LR @200 check MRCP to further evaluate. (3) Right foot ulcer: See above. ID has been following and is consulted. (4) Esophageal dilatation: Continue Pantoprazole IV BID (5) Temporal arteritis: Has been receiving 10mg prednisone po. Reports having had reduction of dose 5 days prior, which is suspicious timely for increase in inflammation and cause of headache. As he is NPO, I ordered 20mg Solumedrol IV daily which will represent an increase in steroid equivalency. History of Present Illness 74 y/o male presented to the ED with complaint of headache worsening over the previous 3 days. He had been treated for temporal arteritis over many months and has been decreasing prednisone dose currently at 10mg daily. In addition, he has noticed tachycardia, weakness and feeling "shaky". He denies having cough, F/C, abdominal pain, back pain, chest pain, visual changes, or N/V/D. Primary Care Provider: Lisette zarate [place] Allergies Allergy/AdvReac Type Severity Reaction Status Date / Time No Known Allergies Allergy Unknown Verified 09/13/19 03:33 Home Medications Home Medications Medication Instructions Recorded Confirmed Type folic acid 1 mg tablet 1 mg PO QAM #180 tab 04/10/19 09/13/19 History pantoprazole 40 mg tablet,delayed 40 mg PO BID #60 tab 04/10/19 09/13/19 History release simvastatin 40 mg tablet 40 mg PO QPM #90 tab 04/10/19 09/13/19 History spironolactone 25 mg tablet 25 mg PO BID #180 tab 04/10/19 09/13/19 History tamsulosin 0.4 mg capsule 0.4 mg PO QAM #90 cap 04/10/19 09/13/19 History venlafaxine 150 mg 150 mg PO QAM #90 cap 04/10/19 09/13/19 History capsule,extended release 24 hr venlafaxine 75 mg capsule,extended 75 mg PO QAM #90 cap 04/10/19 09/13/19 History release 24 hr hyoscyamine sulfate 0.125 mg 0.125 mg SL Q4H PRN #30 tab 05/11/19 09/13/19 Rx sublingual tablet clonazepam 0.5 mg PO Q12 PRN 05/23/19 09/13/19 History aripiprazole 5 mg PO QAM 05/31/19 09/13/19 History ceftriaxone 2 gm IV DAILY #1 ea 08/14/19 09/13/19 Rx cyanocobalamin (vitamin B-12) 1,000 mcg PO DAILY #30 cap 08/14/19 09/13/19 Rx prednisone 10 mg tablet 10 mg PO QAM 09/11/19 09/13/19 History acetaminophen 650 mg PO Q4 PRN 09/13/19 09/13/19 History cholecalciferol (vitamin D3) 800 unit PO QAM 09/13/19 09/13/19 History [Vitamin D3] furosemide 20 mg PO QAM 09/13/19 09/13/19 History potassium chloride 20 meq PO QAM 09/13/19 09/13/19 History vancomycin 750 mg IV BID 09/13/19 09/13/19 History Past Med/Surg History Medical History KAYKAY (acute kidney injury) (Acute) Anxiety Arrhythmia Bursitis (Acute) Chronic back pain Chronic obstructive pulmonary disease stopped inhalers Chronic pulmonary aspiration Chronic respiratory failure with hypoxia Degenerative disc disease Depression Depressive disorder (Chronic) GERD (gastroesophageal reflux disease) History of pneumonia (Resolved) Hyperlipidemia Hypertension Hypoxia (Acute) Kidney stone (Acute) Kidney stones Left lower lobe pneumonia (Acute) On home oxygen therapy 3lpm prn Osteoarthritis PAC (premature atrial contraction) Peripheral neuropathy bilateral hands & feet Pneumonia Prostate cancer (Resolved 02/17/11) "Rising PSA Status post ultrasound-guided biopsy 02/17/2011 Adenocarcinoma Zachary 3+3 1 and 14 cores positive less than 5% Watchful waiting Rebiopsy 05/18/2014 reveals adenocarcinoma [place] 3+3, 1 of 14, 50% of the core Watchful waiting Rebiopsy 06/19/2014 reveals a adenocarcinoma [place] 3+4, 8 of 13 cores positive with increased percentages up to 80% Status post hormonal suppression with 1 injection of Lupron Status post prostate seed implant 09/18/2014 received 8500 cGy, 48 seeds placed Status post external beam treatment with IMRT/IGRT completed 12/19/2014 received 4500 cGy" On 01/25/15 10:17 Kaylin Quiroz wrote "Rising PSA Status post ultrasound-guided biopsy 02/17/2011 Adenocarcinoma Zachary 3+31 and 14 cores positive less than 5% Watchful waiting Rebiopsy 05/18/2014 reveals adenocarcinoma Zachary 3+3, 1 of 14, 50% of the core Watchful waiting Rebiopsy 06/19/2014 reveals a adenocarcinoma Zachary 3+4, 8 of 13 cores positive with increased percentages Status post hormonal suppression with 1 injection of Lupron Status post prostate seed implant 09/18/2014 received 8500 cGy, 48 seeds placed Status post external beam treatment with IMRT/IGRT completed 12/19/2014 received 4500 cGy" Prostate cancer with radiation Sepsis (Acute) Sleep apnea non-compliant with cpap Tachycardia Temporal arteritis (Chronic) Weight loss, unintentional Surgical History H/O toe surgery History of arthroscopic surgery of shoulder bilateral History of colonoscopy History of nasal septoplasty History of tonsillectomy Hx of shoulder surgery open left shoulder Family History Other Hypertension Social History Preferred Language: Ukrainian Communication Ability: Effective Senior Service Technician Required: No Beliefs That Will Affect Care: None marital status: Single Current Living Situation: Alone Feels Safe at Home: Yes Smoking Status: Never smoker Tobacco Type: cigarettes ; Second Hand Exposure: No ; Hx Alcohol Use: No Hx Substance Use: No Review of Systems Review of Systems: All systems reviewed & are unremarkable except as noted in HPI & below Physical Exam Physical Exam: General- adult male, NAD Head- atraumatic Eyes- PERRL, EOMI, anicteric ENT- oropharynx clear Neck- supple, no JVD, no adenopathy, no thyromegaly. Lungs- Decreased breath sounds at the bases b/l. No rhonchi, wheezes, or crackles. Heart- regular rhythm; no murmur, no gallop, no rub appreciated Abdomen- normal bowel sounds, soft, nontender, No epigastric tenderness. Extremities- no pretibial edema, no calf tenderness; peripheral pulses intact Neuro- alert, oriented x 3; PERRL, EOMI;wood router II-XII grossly intact, non-focal. Skin- warm & dry Results & Data Vital Signs (Past 12 Hours) Vital Signs Temp Pulse Pulse Resp BP BP Pulse Ox 09/13/19 05:30 117 H 21 95/68 L 98 09/13/19 05:00 132 H 19 139/68 97 09/13/19 04:41 125 H 18 130/92 96 09/13/19 03:22 122 H 20 119/61 96 09/13/19 03:20 122 H 22 95 09/13/19 03:19 122 H 19 119/61 95 09/13/19 02:42 136 H 20 122/63 95 09/13/19 02:41 121 H 19 122/63 95 09/13/19 02:30 124 H 20 96 09/13/19 02:17 110 H 20 130/64 96 09/13/19 02:15 130 H 15 130/64 94 09/13/19 01:57 125 H 22 138/74 97 09/13/19 01:56 126 H 25 H 138/74 97 09/13/19 01:33 37.3 C 135 H 22 151/82 H 90 09/13/19 01:00 132 H 26 H 151/82 H 90 Laboratory Results Laboratory Results WBC 15.82 K/uL (4.8-10.8) H 09/13/19 01:44 RBC 3.52 M/uL (4.7-6.1) L 09/13/19 01:44 Hgb 11.4 g/dL (14.0-18.0) L 09/13/19 01:44 Hct 34.8 % (42-52) L 09/13/19 01:44 MCV 98.9 fL (80-100) 09/13/19 01:44 MCH 32.4 pg (25-34) 09/13/19 01:44 MCHC 32.8 g/dL (32-36) 09/13/19 01:44 RDW Std Deviation 57.6 fL (36.4-46.3) H 09/13/19 01:44 RDW Coeff of Melba 16.1 % (11.5-14.5) H 09/13/19 01:44 Plt Count 272 K/uL (130-400) 09/13/19 01:44 MPV 9.7 fL (7.4-10.4) 09/13/19 01:44 Immature Gran % (Auto) 0.6 % 09/13/19 01:44 Neut % (Auto) 83.7 % 09/13/19 01:44 Lymph % (Auto) 3.9 % 09/13/19 01:44 [place] % (Auto) 9.7 % 09/13/19 01:44 Eos % (Auto) 1.8 % 09/13/19 01:44 Baso % (Auto) 0.3 % 09/13/19 01:44 Immature Gran # (Auto) 0.10 K/uL (0.00-0.02) H 09/13/19 01:44 Neut # (Auto) 13.23 K/uL (1.4-6.5) H 09/13/19 01:44 Lymph # (Auto) 0.61 K/uL (1.2-3.4) L 09/13/19 01:44 [place] # (Auto) 1.54 K/uL (0.11-0.59) H 09/13/19 01:44 Eos # (Auto) 0.29 K/uL (0-0.5) 09/13/19 01:44 Baso # (Auto) 0.05 K/uL (0-0.2) 09/13/19 01:44 ESR > 90 mm/hr (0-14) H 09/13/19 01:44 PT 11.7 Seconds (9.0-12.0) 09/13/19 01:44 INR 1.2 (0.9-1.1) H 09/13/19 01:44 Sodium 137 mmol/L (136-145) 09/13/19 01:44 Potassium 3.5 mmol/L (3.5-5.1) 09/13/19 01:44 Chloride 104 mmol/L (98-107) 09/13/19 01:44 Carbon Dioxide 29 mmol/L (21-32) 09/13/19 01:44 Anion Gap 4.0 (3-11) 09/13/19 01:44 BUN 13 mg/dl (7-18) 09/13/19 01:44 Creatinine 0.85 mg/dl (0.6-1.4) 09/13/19 01:44 Est Cr Clr Drug Dosing 101.9 ml/min 09/13/19 01:44 Est GFR ( Amer) 98.8 09/13/19 01:44 Est GFR (Non-Af Amer) 85.2 09/13/19 01:44 BUN/Creatinine Ratio 15.7 (10-20) 09/13/19 01:44 Glucose 103 mg/dl (70-99) H 09/13/19 01:44 Lactate 1.5 mmol/L (0.4-2.0) 09/13/19 01:44 Calcium 8.7 mg/dl (8.5-10.1) 09/13/19 01:44 Magnesium 1.9 mg/dl (1.8-2.4) 09/13/19 01:44 Total Bilirubin 0.5 mg/dl (0.2-1) 09/13/19 01:44 Direct Bilirubin 0.2 mg/dl (0-0.2) 09/13/19 01:44 AST 49 U/L (15-37) H 09/13/19 01:44 ALT 44 U/L (12-78) 09/13/19 01:44 Alkaline Phosphatase 154 U/L (45-117) H 09/13/19 01:44 Troponin I < 0.015 ng/ml (0-0.045) 09/13/19 01:44 C-Reactive Protein 16.40 mg/dl (0-0.29) H 09/13/19 01:44 NT-Pro-B Natriuret Pep 406 pg/ml (0-900) 09/13/19 01:44 Total Protein 6.9 gm/dl (6.4-8.2) 09/13/19 01:44 Albumin 2.5 gm/dl (3.4-5.0) L 09/13/19 01:44 Lipase 2111 U/L (73-393) H 09/13/19 01:44 Procalcitonin 0.43 ng/ml (0-0.5) 09/13/19 01:44 TSH 2.070 uIu/ml (0.300-4.500) 09/13/19 01:44 Urine Color Yellow 09/13/19 05:05 Urine Appearance Clear (Clear) 09/13/19 05:05 Urine pH 7.5 (4.5-7.5) 09/13/19 05:05 Ur Specific [place] 1.017 (1.000-1.030) 09/13/19 05:05 Urine Protein Negative (Negative) 09/13/19 05:05 Urine Glucose (UA) Negative (Negative) 09/13/19 05:05 Urine Ketones Negative (Negative) 09/13/19 05:05 Urine Blood Negative (Negative) 09/13/19 05:05 Urine Nitrite Negative (Negative) 09/13/19 05:05 Urine Bilirubin Negative (Negative) 09/13/19 05:05 Urine Urobilinogen Negative (Negative) 09/13/19 05:05 Ur Leukocyte Esterase Negative (Negative) 09/13/19 05:05 Diagnostic Findings [place], [place] [phone] CT Scan Report Patient: CATERINA GUIDRY Date: 09/13/19 MR#: [id number]: 1950 [facility] Acct ID:[id number]: Date: [facility] Zip: [place] [address] Age: 74Location: ED Sex: M Room/Bed: Att Phy:Diagnosis: HEADACHE/CHILLS Tea Phy: [facility] Date: 09/13/19 Fam Phy:Interpreting Phy: Cuco Ruiz MD Admit Phy: Ordering Phy: Angel Iqbal M.D. cc: ~ CT head/brain wo con CT DOSE: 687.98 mGy.cm HISTORY: Mental status change. Headache. diffuse headache TECHNIQUE: Multiaxial CT images of the head were performed without the use of intravenous contrast. A dose lowering technique was utilized adhering to the principles of ALARA. Comparison: 08/07/2019 Findings: The paranasal sinuses and mastoid air cells are clear. The calvarium and skull base are intact. The ventricles and sulci are within normal limits. There is no mass, hematoma, midline shift, or acute infarct. Impression: No acute intracranial abnormality. Age-related atrophy and chronic small vessel change ACT 112: Negative or not required by law. The above report was generated using voice recognition software. It may contain grammatical, syntax or spelling errors. Electronically signed by: Cuco Ruiz M.D. 09/13/2019 6:03 AM Dictated: 09/13/19602 Transcribed: 09/13/19602 Code Status & VTE Plan VTE Prophylaxis Plan VTE Prophylaxis will be ordered: Yes PG Care Time/CCT Total # of Minutes Spent Total Time Spent: 65 Total Time Spent with Patient: Total time spent is greater than 50% in coordination of care (as documented) at patient's floor/unit and/or counseling patient: Coding Level of Care Code 16724 Initial Inpt Care Lvl 3 Diagnoses Bilateral pneumonia J18.9 Lung location: unspecified part of lung Pneumonia type: due to unspecified organism Pancreatitis K85.90 Acute pancreatitis complication: unspecified Chronicity: acute Pancreatitis type: unspecified pancreatitis type Right foot ulcer L97.519 Esophageal dilatation K22.8 Temporal arteritis M31.6 (1) Bilateral pneumonia Lung location: unspecified part of lung Pneumonia type: due to unspecified organism Qualified Code(s): J18.9 - Pneumonia, unspecified organism (2) Pancreatitis Acute pancreatitis complication: unspecified Chronicity: acute Pancreatitis type: unspecified pancreatitis type Qualified Code(s): K85.90 - Acute pancreatitis without necrosis or infection, unspecified
[2019-09-13] MEDS ORDERED: MoRPHine SULFATE 4 MG/ML 1 ML CARP\\VIAL IV PRN (06:31)
[2019-09-13] MEDS ORDERED: MoRPHine SULFATE 2 MG/ML CARP IV PRN (06:31)
[2019-09-13] MEDS ORDERED: ONDANSETRON INJ 2 MG/ML 2 ML VIAL IV PRN (06:31)
--- NOTE | 2019-09-13 06:40 | XRay Report ---
XR chest 1V portable CLINICAL HISTORY: Sepsis dyspnea COMPARISON STUDY: 08/11/2019 FINDINGS: Left-sided PICC catheter remains in superior vena cava. Poorly defined bibasilar parenchyma l infiltrative change. Mid upper lungs are clear. IMPRESSION: Small bibasilar parenchymal infiltrates. ACT 112: Negative or not required by law. The above report was generated using voice recognition software. It may contain grammatical, syntax or spelling errors. Electronically signed by: Cuco Ruiz M.D. 09/13/2019 6:39 AM
--- NOTE | 2019-09-13 07:16 | CT Scan Report ---
CT SCAN OF THE ABDOMEN AND PELVIS WITH IV CONTRAST CLINICAL HISTORY: Sepsis. Elevated lipase. COMPARISON STUDY: Abdominal CT dated 05/31/2019 and 05/09/2019. TECHNIQUE: Following the IV administration of 92 cc of Optiray 320, CT scan of the abdomen and pelvi s is performed from the lung bases to the proximal femora. Images are reviewed in the axial, sagittal , and coronal planes. IV contrast was administered without complication. A dose lowering technique wa s utilized adhering to the principles of ALARA. CT DOSE: 1503.05 mGy.cm FINDINGS: Lung bases: The heart is top normal in size and without pericardial effusion. There are coronary bhanu ry calcifications. A small hiatal hernia is noted. Fibrotic change is present at both lung bases. The re is no evidence of superimposed airspace consolidation or pleural effusion. Scattered calcified gra nulomas are observed. Liver: The contrast-enhanced liver is normal in size, contour, and attenuation. There is no intrahepa tic biliary ductal dilatation. The hepatic veins and portal veins are patent. Calcified granulomas ar e noted in the left lobe. Gallbladder: Unremarkable. Spleen: Normal in size and attenuation. Pancreas: The pancreas appears mildly enlarged and edematous as compared to previous. There is faint peripancreatic stranding, and the appearance is typical for mild acute pancreatitis. The gland enhanc es homogeneously. The pancreatic duct is normal in caliber. No peripancreatic fluid collection is rashad ntified. The splenic vein is patent. Adrenal glands: Unremarkable. Kidneys: The contrast enhanced kidneys demonstrate cortical atrophy and are without hydronephrosis. T he kidneys enhance symmetrically. There are numerous bilateral nonobstructing renal calculi. A 1.8 cm complex cyst in the upper pole of the right kidney seen on image #173 is unchanged from previous. Abdominal vasculature: The abdominal aorta is normal in course and caliber noting advanced atheroscle rotic calcification. Bowel: There is no bowel obstruction. There are scattered colonic diverticula without CT evidence of acute diverticulitis. Mild fecal retention is noted in the colon. The appendix is well-visualized an d normal. Peritoneum: There is no intraperitoneal free air or abdominal ascites. Lymphadenopathy: None. Pelvic viscera: The prostate gland is diminutive and heterogeneous noting brachytherapy seeds in plac e. The bladder wall is thickened and trabeculated indicating chronic outlet obstruction. Tiny bladder diverticula are noted. Skeletal structures: The skeletal structures are osteopenic. There is moderate lumbosacral spondylosi s. A mild superior endplate compression deformity is noted in L2. Degenerative changes also seen in t he sacroiliac joints. No lytic or blastic lesions are seen. IMPRESSION: 1. Findings are consistent with mild acute pancreatitis. 2. The gland enhances homogeneously and there is no organized peripancreatic fluid collection. 3. There are numerous bilateral nonobstructing renal calculi. 4. Additional findings as above. ACT 112: Negative or not required by law. Electronically signed by: Leroy Wasserman M.D. 09/13/2019 7:14 AM
[2019-09-13] MEDS: LACTATED RINGER'S 1,000 ML IV SCH ×2 (07:21→12:24)
[2019-09-13] MEDS: CHOLECALCIFEROL (VITAMIN D) 400 UNITS TABLET PO SCH (07:22)
[2019-09-13] MEDS: HEPARIN SOD 5,000 UNIT/0.5 ML VIAL SQ SCH ×2 (07:22→21:05)
[2019-09-13] MEDS ORDERED: methylPREDNISolone 20 MG in SYRINGE 0 ML IV SCH (09:00)
[2019-09-13] MEDS: KETOROLAC TROMETHAMINE 15 MG/ML VIAL IV PRN ×2 (09:10→21:16)
[2019-09-13] MEDS: PANTOprazole 40 MG in SYRINGE 0 ML IV SCH ×2 (09:11→21:05)
[2019-09-13] MEDS: CEFEPIME 2,000 MG in SYRINGE 7.5 ML IV SCH ×2 (10:26→18:42)
--- NOTE | 2019-09-13 10:42 | Gastrointestinal Consultation ---
Date of Consultation September 13, 2019 Assessment & Plan (1) Pancreatitis: Patient is asymptomatic. CT scan indicates a mild, acute pancreatitis. Lipase >2000. No ductal dilatation on CT scan. No history of pancreatic issues. Cholesterol is monitored by patient's PCP as an outpatient and he takes Simvastatin 40 mg daily. He denies alcohol use or recent viral illnesses. No imaging concerns regarding the gallbladder. LFTs are unremarkable. -NPO & IV fluids but can advance to liquids as tolerated as patient is asymptomatic and CT findings are mild -Patient is currently not requiring pain medication for this issue as he is asymptomatic -As for concerns for ductal dilatation, the available CT scan in [place] [facility] does not indicate any dilatation, however if there is an external scan or other concern prompting this reason for the consult, please contact us at [phone] or [phone]. Hold off on MRCP for now--if patient develops abdominal pain or elevation of his LFTs, can consider further imaging at that time. -Supportive care and treatment of other issues per primary team. Present on Admission?: Yes Supervising Physician Co-Signing Physician Notes Agree with PAYTON Yadav as above Abd: Soft, NT, ND, +BS Continue current therapy and supportive care Discussed case with Dr. Yi, and she will order MRCP for further evaluation of questionable ductal dilation on CT History of Present Illness Reason for Consultation: Pancreatitis, "ductal dilatation" Attending Physician: Rosario Yi MD History of Present Illness Patient is a 74 yo male with extensive past medical history who originally presented to the hospital for headaches. He has a recent history of temporal arteritis for which he has been on Prednisone. He has bilateral pneumonia as well for which he has been on antibiotics for some time. He recently underwent pneumatic dilatation of his achalasia at [facility] by Dr. Ro. GI has been consulted this admission for pancreatitis & "ductal dilatation." Per review of the CT scan, it appears that there is mild edematous change of the pancreas consistent with a very mild, acute pancreatitis. There is no evidence of ductal dilatation on CT imaging. Lipase >2000. Patient has no abdominal pain. He denies recent alcohol use. He offers no GI symptoms at present. He denies any pancreatic history. LFTs are not remarkable. Mr. Juarez repeatedly falls asleep during my exam limiting our interaction. Allergies Allergy/AdvReac Type Severity Reaction Status Date / Time No Known Allergies Allergy Unknown Verified 09/13/19 03:33 Home Medications Home Medications Medication Instructions Recorded Confirmed Type folic acid 1 mg tablet 1 mg PO QAM #180 tab 04/10/19 09/13/19 History pantoprazole 40 mg tablet,delayed 40 mg PO BID #60 tab 04/10/19 09/13/19 History release simvastatin 40 mg tablet 40 mg PO QPM #90 tab 04/10/19 09/13/19 History spironolactone 25 mg tablet 25 mg PO BID #180 tab 04/10/19 09/13/19 History tamsulosin 0.4 mg capsule 0.4 mg PO QAM #90 cap 04/10/19 09/13/19 History venlafaxine 150 mg 150 mg PO QAM #90 cap 04/10/19 09/13/19 History capsule,extended release 24 hr venlafaxine 75 mg capsule,extended 75 mg PO QAM #90 cap 04/10/19 09/13/19 History release 24 hr hyoscyamine sulfate 0.125 mg 0.125 mg SL Q4H PRN #30 tab 05/11/19 09/13/19 Rx sublingual tablet clonazepam 0.5 mg PO Q12 PRN 05/23/19 09/13/19 History aripiprazole 5 mg PO QAM 05/31/19 09/13/19 History ceftriaxone 2 gm IV DAILY #1 ea 08/14/19 09/13/19 Rx cyanocobalamin (vitamin B-12) 1,000 mcg PO DAILY #30 cap 08/14/19 09/13/19 Rx prednisone 10 mg tablet 10 mg PO QAM 09/11/19 09/13/19 History acetaminophen 650 mg PO Q4 PRN 09/13/19 09/13/19 History cholecalciferol (vitamin D3) 800 unit PO QAM 09/13/19 09/13/19 History [Vitamin D3] furosemide 20 mg PO QAM 09/13/19 09/13/19 History potassium chloride 20 meq PO QAM 09/13/19 09/13/19 History vancomycin 750 mg IV BID 09/13/19 09/13/19 History Patient History Medical History KAYKAY (acute kidney injury) (Acute) Anxiety Arrhythmia Bursitis (Acute) Chronic back pain Chronic obstructive pulmonary disease stopped inhalers Chronic pulmonary aspiration Chronic respiratory failure with hypoxia Degenerative disc disease Depression Depressive disorder (Chronic) GERD (gastroesophageal reflux disease) History of pneumonia (Resolved) Hyperlipidemia Hypertension Hypoxia (Acute) Kidney stone (Acute) Kidney stones Left lower lobe pneumonia (Acute) On home oxygen therapy 3lpm prn Osteoarthritis PAC (premature atrial contraction) Peripheral neuropathy bilateral hands & feet Pneumonia Prostate cancer (Resolved 02/17/11) "Rising PSA Status post ultrasound-guided biopsy 02/17/2011 Adenocarcinoma [place] 3+3 1 and 14 cores positive less than 5% Watchful waiting Rebiopsy 05/18/2014 reveals adenocarcinoma [place] 3+3, 1 of 14, 50% of the core Watchful waiting Rebiopsy 06/19/2014 reveals a adenocarcinoma [place] 3+4, 8 of 13 cores positive with increased percentages up to 80% Status post hormonal suppression with 1 injection of Lupron Status post prostate seed implant 09/18/2014 received 8500 cGy, 48 seeds placed Status post external beam treatment with IMRT/IGRT completed 12/19/2014 received 4500 cGy" On 01/25/15 10:17 Kaylin Quiroz wrote "Rising PSA Status post ultrasound-guided biopsy 02/17/2011 Adenocarcinoma [place] 3+31 and 14 cores positive less than 5% Watchful waiting Rebiopsy 05/18/2014 reveals adenocarcinoma [place] 3+3, 1 of 14, 50% of the core Watchful waiting Rebiopsy 06/19/2014 reveals a adenocarcinoma [place] 3+4, 8 of 13 cores positive with increased percentages Status post hormonal suppression with 1 injection of Lupron Status post prostate seed implant 09/18/2014 received 8500 cGy, 48 seeds placed Status post external beam treatment with IMRT/IGRT completed 12/19/2014 received 4500 cGy" Prostate cancer with radiation Sepsis (Acute) Sleep apnea non-compliant with cpap Tachycardia Temporal arteritis (Chronic) Weight loss, unintentional Surgical History H/O toe surgery History of arthroscopic surgery of shoulder bilateral History of colonoscopy History of nasal septoplasty History of tonsillectomy Hx of shoulder surgery open left shoulder Family History Other Hypertension Social History Preferred Language: Hungarian Communication Ability: Effective Corporate Buyer Required: No Beliefs That Will Affect Care: None marital status: Single Current Living Situation: [facility] Feels Safe at Home: Yes Smoking Status: Never smoker Tobacco Type: cigarettes ; Second Hand Exposure: No ; Hx Alcohol Use: No Hx Substance Use: No Review of Systems Constitutional: + fatigue Eyes: no acute complaints Ear, Nose, Mouth, Throat: no acute complaints Respiratory: + cough and + dyspnea on exertion Cardiovascular: no chest pain Gastrointestinal: no abdominal pain, no bloating and no heartburn Musculoskeletal: + joint pain Integumentary: no acute complaints Neurologic: headache Psychiatric: no acute issues Hematologic / Lymphatic: no acute issues Physical Exam Constitutional: NAD Eyes: PERRL, conjunctivae normal, anicteric sclerae ENMT: external ear and nose normal, oropharynx normal Neck: normal visual inspection Respiratory: normal respiratory effort and + cough; no respiratory distress Auscultation: + bronchial breath sounds Cardiovascular: RRR, no murmur, no edema Gastrointestinal (Abdomen): normal bowel sounds, soft, nontender, no hepatosplenomegaly Musculoskeletal: no cyanosis or clubbing, extremities motor strength 5/5 Skin: no rashes, warm and dry Neurologic: normal speech Psychiatric: Orientation: alert and oriented x 3 Results & Data Vital Signs (Past 12 Hours) Vital Signs Temp Pulse Pulse Resp BP BP Pulse Ox 09/13/19 08:00 36.9 C 119 H 122 H 22 149/88 H 09/13/19 06:30 119 H 22 145/82 H 94 09/13/19 06:20 36.9 C 115 H 18 145/82 H 95 09/13/19 06:01 36.9 C 116 H 24 98 09/13/19 06:00 117 H 18 142/68 H 97 09/13/19 05:30 117 H 21 95/68 L 98 09/13/19 05:00 132 H 19 139/68 97 09/13/19 04:41 125 H 18 130/92 96 09/13/19 03:22 122 H 20 119/61 96 09/13/19 03:20 122 H 22 95 09/13/19 03:19 122 H 19 119/61 95 09/13/19 02:42 136 H 20 122/63 95 09/13/19 02:41 121 H 19 122/63 95 09/13/19 02:30 124 H 20 96 09/13/19 02:17 110 H 20 130/64 96 09/13/19 02:15 130 H 15 130/64 94 09/13/19 01:57 125 H 22 138/74 97 09/13/19 01:56 126 H 25 H 138/74 97 09/13/19 01:33 37.3 C 135 H 22 151/82 H 90 09/13/19 01:00 132 H 26 H 151/82 H 90 PG Care Time/CCT Total # of Minutes Spent Total Time Spent with Patient: Total time spent is greater than 50% in coordination of care (as documented) at patient's floor/unit and/or counseling patient: Coding Level of Care Code 67073 Initial Inpt Care Lvl 3 Diagnoses Pancreatitis K85.90 Acute pancreatitis complication: unspecified Chronicity: acute Pancreatitis type: unspecified pancreatitis type (1) Pancreatitis Acute pancreatitis complication: unspecified Chronicity: acute Pancreatitis type: unspecified pancreatitis type Qualified Code(s): K85.90 - Acute pancreatitis without necrosis or infection, unspecified
--- NOTE | 2019-09-13 11:11 | Infectious Disease Consult ---
Date of Consultation September 13, 2019 Assessment & Plan (1) Pancreatitis: can continue current abx, doubt pna. abx to stop in early September unless duration adjusted at podiatry visit. blood cultures pending History of Present Illness Attending Physician: Rosario Yi MD pt admitted with finch. pt had cxr with small infiltrate, also found to have pancreatitis on ct abd, lipase>2000. afebrile. was on ctx and vanco for toe osteo, started during last hospital stay by primary service, no micro done. was not seen by ID during last hospital stay. was seen in office 2 days ago, wound improved per patient, no previous ID eval to compare, abx to stop in early Sep, no labs sent for review. Now on cefepime and vanco, wbc 15, ESR >90. blood cultures pending. Pt is resting comfortably on my exam, denies cp, sob, cough, donnelly, no wheeze. no abd pain, no n/v/d. no gu symptoms. no pain in foot. He was also to see podiatry this week to determine duration of abx Allergies Allergy/AdvReac Type Severity Reaction Status Date / Time No Known Allergies Allergy Unknown Verified 09/13/19 03:33 Home Medications Home Medications Medication Instructions Recorded Confirmed Type folic acid 1 mg tablet 1 mg PO QAM #180 tab 04/10/19 09/13/19 History pantoprazole 40 mg tablet,delayed 40 mg PO BID #60 tab 04/10/19 09/13/19 History release simvastatin 40 mg tablet 40 mg PO QPM #90 tab 04/10/19 09/13/19 History spironolactone 25 mg tablet 25 mg PO BID #180 tab 04/10/19 09/13/19 History tamsulosin 0.4 mg capsule 0.4 mg PO QAM #90 cap 04/10/19 09/13/19 History venlafaxine 150 mg 150 mg PO QAM #90 cap 04/10/19 09/13/19 History capsule,extended release 24 hr venlafaxine 75 mg capsule,extended 75 mg PO QAM #90 cap 04/10/19 09/13/19 History release 24 hr hyoscyamine sulfate 0.125 mg 0.125 mg SL Q4H PRN #30 tab 09/26/19 01/29/20 Rx sublingual tablet clonazepam 0.5 mg PO Q12 PRN 05/23/19 09/13/19 History aripiprazole 5 mg PO QAM 05/31/19 09/13/19 History ceftriaxone 2 gm IV DAILY #1 ea 08/14/19 09/13/19 Rx cyanocobalamin (vitamin B-12) 1,000 mcg PO DAILY #30 cap 08/14/19 09/13/19 Rx prednisone 10 mg tablet 10 mg PO QAM 09/11/19 09/13/19 History acetaminophen 650 mg PO Q4 PRN 09/13/19 09/13/19 History cholecalciferol (vitamin D3) 800 unit PO QAM 09/13/19 09/13/19 History [Vitamin D3] furosemide 20 mg PO QAM 09/13/19 09/13/19 History potassium chloride 20 meq PO QAM 09/13/19 09/13/19 History vancomycin 750 mg IV BID 09/13/19 09/13/19 History Patient History Medical History KAYKAY (acute kidney injury) (Acute) Anxiety Arrhythmia Bursitis (Acute) Chronic back pain Chronic obstructive pulmonary disease stopped inhalers Chronic pulmonary aspiration Chronic respiratory failure with hypoxia Degenerative disc disease Depression Depressive disorder (Chronic) GERD (gastroesophageal reflux disease) History of pneumonia (Resolved) Hyperlipidemia Hypertension Hypoxia (Acute) Kidney stone (Acute) Kidney stones Left lower lobe pneumonia (Acute) On home oxygen therapy 3lpm prn Osteoarthritis PAC (premature atrial contraction) Peripheral neuropathy bilateral hands & feet Pneumonia Prostate cancer (Resolved 02/17/11) "Rising PSA Status post ultrasound-guided biopsy 02/17/2011 Adenocarcinoma [place] 3+3 1 and 14 cores positive less than 5% Watchful waiting Rebiopsy 05/18/2014 reveals adenocarcinoma [place] 3+3, 1 of 14, 50% of the core Watchful waiting Rebiopsy 06/19/2014 reveals a adenocarcinoma [place] 3+4, 8 of 13 cores positive with increased percentages up to 80% Status post hormonal suppression with 1 injection of Lupron Status post prostate seed implant 09/18/2014 received 8500 cGy, 48 seeds placed Status post external beam treatment with IMRT/IGRT completed 12/19/2014 received 4500 cGy" On 01/25/15 10:17 Kaylin Quiroz wrote "Rising PSA Status post ultrasound-guided biopsy 02/17/2011 Adenocarcinoma [place] 3+31 and 14 cores positive less than 5% Watchful waiting Rebiopsy 05/18/2014 reveals adenocarcinoma [place] 3+3, 1 of 14, 50% of the core Watchful waiting Rebiopsy 06/19/2014 reveals a adenocarcinoma [place] 3+4, 8 of 13 cores positive with increased percentages Status post hormonal suppression with 1 injection of Lupron Status post prostate seed implant 09/18/2014 received 8500 cGy, 48 seeds placed Status post external beam treatment with IMRT/IGRT completed 12/19/2014 received 4500 cGy" Prostate cancer with radiation Sepsis (Acute) Sleep apnea non-compliant with cpap Tachycardia Temporal arteritis (Chronic) Weight loss, unintentional Surgical History H/O toe surgery History of arthroscopic surgery of shoulder bilateral History of colonoscopy History of nasal septoplasty History of tonsillectomy Hx of shoulder surgery open left shoulder Family History Other Hypertension Social History Preferred Language: Mohawk Communication Ability: Effective Puller Over Required: No Beliefs That Will Affect Care: None marital status: Single Current Living Situation: [facility] Feels Safe at Home: Yes Smoking Status: Never smoker Tobacco Type: cigarettes ; Second Hand Exposure: No ; Hx Alcohol Use: No Hx Substance Use: No Review of Systems Review of Systems: All systems reviewed & are unremarkable except as noted in HPI & below Physical Exam Constitutional: WD/WN, vitals as above Eyes: PERRL, conjunctivae normal, anicteric sclerae ENMT: external ear and nose normal, oropharynx normal Neck: normal visual inspection Respiratory: normal respiratory effort, lungs clear to auscultation Cardiovascular: RRR, no murmur, no edema Gastrointestinal (Abdomen): normal bowel sounds, soft, nontender, no hepatosplenomegaly Musculoskeletal: no cyanosis or clubbing, extremities motor strength 5/5 Skin: no rashes, warm and dry Psychiatric: A+Ox3, euthymic affect Results & Data Vital Signs (Past 12 Hours) Vital Signs Temp Pulse Pulse Resp BP BP Pulse Ox 09/13/19 08:00 36.9 C 119 H 122 H 22 149/88 H 09/13/19 06:30 119 H 22 145/82 H 94 09/13/19 06:20 36.9 C 115 H 18 145/82 H 95 09/13/19 06:01 36.9 C 116 H 24 98 09/13/19 06:00 117 H 18 142/68 H 97 09/13/19 05:30 117 H 21 95/68 L 98 09/13/19 05:00 132 H 19 139/68 97 09/13/19 04:41 125 H 18 130/92 96 09/13/19 03:22 122 H 20 119/61 96 09/13/19 03:20 122 H 22 95 09/13/19 03:19 122 H 19 119/61 95 09/13/19 02:42 136 H 20 122/63 95 09/13/19 02:41 121 H 19 122/63 95 09/13/19 02:30 124 H 20 96 09/13/19 02:17 110 H 20 130/64 96 09/13/19 02:15 130 H 15 130/64 94 09/13/19 01:57 125 H 22 138/74 97 09/13/19 01:56 126 H 25 H 138/74 97 09/13/19 01:33 37.3 C 135 H 22 151/82 H 90 09/13/19 01:00 132 H 26 H 151/82 H 90 PG Care Time/CCT Total # of Minutes Spent Total Time Spent with Patient: Total time spent is greater than 50% in coordination of care (as documented) at patient's floor/unit and/or counseling patient: Coding Level of Care Code 62843 Inpt Consult Level 4 Diagnoses Pancreatitis K85.90 Acute pancreatitis complication: unspecified Chronicity: acute Pancreatitis type: unspecified pancreatitis type (1) Pancreatitis Acute pancreatitis complication: unspecified Chronicity: acute Pancreatitis type: unspecified pancreatitis type Qualified Code(s): K85.90 - Acute pancreatitis without necrosis or infection, unspecified
[2019-09-13] MEDS ORDERED: CEFEPIME 1,000 MG in SYRINGE 0 ML IV SCH (12:00)
[2019-09-13] MEDS ORDERED: VANCOMYCIN HCL 1,750 MG in SODIUM CHLORIDE 0.9% 500 ML IV SCH (14:30)
[2019-09-13] MEDS ORDERED: ALTEPLASE, RECOMBINANT 1 MG/ML 2ML VIAL IV ONE (14:47)
--- NOTE | 2019-09-13 17:49 | Electrocardiogram Report ---
Test Reason : Blood Pressure : / mmHG Vent. Rate : 123 BPM Atrial Rate : 123 BPM P-R Int : 186 ms QRS Dur : 090 ms QT Int : 314 ms P-R-T Axes : -04 078 047 degrees QTc Int : 449 ms Poor data quality, interpretation may be adversely affected Sinus tachycardia Otherwise normal ECG When compared with ECG of 07-AUG-2019 14:16, Premature atrial complexes are no longer Present Confirmed by Toni Ortiz ([id number]) on 09/13/2019 5:49:03 PM Referred By: Angie zarate [facility] Confirmed By:Johann Ortiz
[2019-09-13] MEDS: LORazepam 0.5 MG/1 ML VIAL IV PRN (18:27)
[2019-09-13] MEDS: VANCOMYCIN HCL 1,000 MG in SODIUM CHLORIDE 0.9% 250 ML IV SCH (18:35)
--- NOTE | 2019-09-13 19:34 | History & Physical Bridge Note ---
Date of Service September 13, 2019 History & Physical Bridge Note I have examined the patient, reviewed the History & Physical and in the interval since the performance of the History & Physical I have noted the following changes of clinical significance: Pt remained tachycardic but improved with IVF hydration. Reports some cough, no headache reported, received IV SOlu Medrol today. Denies any abdominal pain at all. Discussed case with GI--> MRCP reordered but by the time he went for it, was evening and he is wearing an MCOT that is adhesed to his chest externally--> unsure if could be replaced after removal so MRCP deferred until the next day until can check with Cardiology about removal of MCOT. Pt denies EtOH use. No gallstones seen on CT abd/pel. CT read from overnight in ER MD notes reports pancreatic ductal dilatation, but Rad read here says no dilatation. Lipase in the 2000 range. 74 yo male here with headaches worsened after tapering down prednisone dose for TA. ESR>90, Crp also elevated from previous. Also with tachycardia, possible PNA but doubtful, ongoing tx for toe OM, and with elevated lipase, mild pancreatitis on CT, elevated AST, Alk phos. -check MRCP tomorrow after check with Cardio about removal of MCOT -follow LFTs, lipase -appreciate GI consultation -restart home po meds -advance diet to full liquids
--- NOTE | 2019-09-13 20:33 | Pharmacy Report ---
Pharmacy Abx Initial Consult - Date of Service September 13, 2019 - Pharmacy Dosing Scope Date of Consult: 09/13/2019 Consultation requested by: Dr. Farah Pharmacy is consulted to initiate Vancomycin IV dosing therapy, order appropriate labs and adjust drug dose/frequency. - Subjective The patient is a 74 year old M admitted on 09/13/19 05:18. - Objective Height: 5 ft 9 in Weight: 105 kg Vital Signs (Past 12hrs): Vital Signs Temp Pulse Pulse Resp BP Pulse Ox 09/13/19 19:40 36.8 C 96 H 18 161/81 H 93 09/13/19 17:00 36.8 C 96 H 18 160/85 H 96 09/13/19 16:00 99 H 09/13/19 12:00 36.7 C 108 H 22 139/73 96 Lab Results (24hrs): Laboratory Tests (24 Hours) 09/13/19 09/13/19 09/13/19 15:36 01:44 01:44 WBC Neut # (Auto) ESR Creatinine 0.85 Est Cr Clr Drug Dosing 101.9 C-Reactive Protein 16.40 H Procalcitonin 0.43 Random Vancomycin 19.6 09/13/19 09/13/19 01:44 01:44 WBC 15.82 H Neut # (Auto) 13.23 H ESR > 90 H Creatinine Est Cr Clr Drug Dosing C-Reactive Protein Procalcitonin Random Vancomycin Micro Results: 09/13/19 01:46 Aerobic Blood Culture - Pending Blood Anaerobic Blood Culture - Pending 09/13/19 01:44 Aerobic Blood Culture - Pending Blood Anaerobic Blood Culture - Pending - Risk Factors for Resistance * Resident in a snf or extended-care facility * Hospitalization for 48 hours or more within the past 90 days * Immunocompromised (chronic steroid therapy, chemotherapy, immunomodulators) * Prednisone 10 mg daily * Antimicrobial use within the last 90 days : * Vancomycin and Ceftriaxone - Assessment & Plan Assessment 74 year old M admitted for ongoing headache and found to have b/l pneumonia * PMHx significant for HTN, HLD, COPD, Prostate cancer, and temporal arteritis * Was on Vancomycin and ceftriaxone as an outpatient for R toe ulcer * Started therapy on 08/08/2020, 6 weeks of tx would be 09/19/2019??? * Was discharged from [facility] on 08/14 with outpatient dose of vancomycin 1000 mg IV every 12 hours * Appears patient was receiving 750 mg IV every 12 hours per completed med rec from [facility] * Trough level from 08/27 was 16.1 mcg/mL but unclear if patient was receiving 1000 mg or 750 mg IV every 12 hours at that time * Last confirmed dose was 09/12/2019 at 1800 * Upon admission, patient is afebrile, [place] [address], Lactate of 1.5 and PCT of 0.43 * Patient was given a 24 mg/kg loading dose of vancomycin in the ED on 09/13/2019 * Random level was ordered for 12 hours following loading dose which resulted at 19.6 mcg/mL * Calculated half-life based on expected max and current random is ~ 11 hours Plan IV Vancomycin and Cefepime for treatment of bilateral pneumonia and right toe ulcer Vancomycin IV * Loading dose: 2500 mg (24 mg/kg) * Maintenance dose: 1000 mg IV (10 mg/kg) every 12 hours * Goal trough level for pneumonia/osteomyelitis: 15 to 20 mcg/mL * Trough/Random level ordered for 09/15/2019 @ 0530 prior to the 4th maintenance dose to reflect steady state levels * A less than traditional dose has been selected given multiple supratherapeutic troughs from previous admission Cefepime * 2 g IV every 8 hours * Dosing appropriate based on clinical indication and renal function Pharmacy will continue to follow and will adjust dose/frequency as necessary. Thank you.
[2019-09-14] MEDS: LORazepam 0.5 MG/1 ML VIAL IV PRN (00:34)
[2019-09-14] MEDS: CEFEPIME 2,000 MG in SYRINGE 7.5 ML IV SCH ×2 (02:10→11:01)
[2019-09-14] MEDS: LACTATED RINGER'S 1,000 ML IV SCH ×2 (03:00→19:31)
[2019-09-14 06:09] LABS: Hematocrit (blood only) 32.5 % (42-52); Hemoglobin 10.9 g/dL (14.0-18.0); Mean Corpuscular Hemoglobin 33.3 pg (25-34); Mean Corpuscular Hgb Conc 33.5 g/dL (32-36); Mean Corpuscular Volume 99.4 fL (80-100); Mean Platelet Volume 9.8 fL (7.4-10.4); Platelet Count 294 K/uL (130-400); RDW Coefficient of Variation 16.1 % (11.5-14.5); RDW Standard Deviation 58.5 fL (36.4-46.3); Red Blood Count 3.27 M/uL (4.7-6.1); White Blood Count 18.52 K/uL (4.8-10.8)
[2019-09-14] MEDS: VANCOMYCIN HCL 1,000 MG in SODIUM CHLORIDE 0.9% 250 ML IV SCH (06:49)
[2019-09-14 07:04] LABS: Albumin Level 2.3 gm/dl (3.4-5.0); BUN Creatinine Ratio 13.9 (10-20); Bilirubin Direct 0.1 mg/dl (0-0.2); Bilirubin,Total 0.5 mg/dl (0.2-1); Calcium 9.1 mg/dl (8.5-10.1); Creatinine Clr Calc Pharmacy 88.3 ml/min; Est GFR (African American) 97.8; Est GFR (Non-African American) 84.4; Potassium 3.4 mmol/L (3.5-5.1); Total Protein 6.5 gm/dl (6.4-8.2)
--- NOTE | 2019-09-14 08:12 | Magnetic Resonance Report ---
MR MRCP HISTORY: 74 years-old Male pancreatitis,possible pancreatic ductal dilatation acute pancreatitis wit h possible biliary ductal obstruction COMPARISON: CT abdomen pelvis 09/13/2019 TECHNIQUE: MRCP without the use of IV contrast was obtained according to institutional protocol FINDINGS: Scrub Tech localizer images demonstrate cardiomegaly. Motion degraded exam. Mild right hemidiaphragmatic e levation. No acute abnormality of the imaged intrapelvic structures. Trace pleural effusions. Areas o f increased signal within the lung bases suggest atelectasis or pneumonitis. Trace pericardial effusi on. Mild nonspecific bilateral perinephric stranding. No hydronephrosis. No aortic aneurysm or adenop athy. Unremarkable IVC. No bowel dilation or wall thickening identified. Mild interstitial peripancre atic edema of the pancreas compatible with mild acute pancreatitis. Trace free fluid tracks along the pericolic gutters. Gallbladder is mildly distended measuring up to 9 cm in length. No cholelithiasis , wall thickening or choledocholithiasis identified. The common bile duct is normal measuring up to 6 mm. There is no intrahepatic biliary ductal dilation. There is mild dilation of the pancreatic duct notably at the level of the pancreatic head measuring up to 6 mm. No obstructing stone or lesion iden tified. 5 mm cystic focus of the pancreatic tail suggestive of a probable sidebranch IPMN. IMPRESSION: 1. Mild acute pancreatitis with trace free fluid of the pericolic gutters. No peripancreatic fluid co llection. 2. Mild gallbladder distention without cholelithiasis or choledocholithiasis. 3. Mild dilation of the pancreatic duct at the level of the pancreatic head. No obstructing stone or lesion identified. 4. Trace pleural effusions. ACT 112: Negative or not required by law. The above report was generated using voice recognition software. It may contain grammatical, syntax o r spelling errors. Electronically signed by: Nikko Larose M.D. 09/14/2019 8:10 AM
[2019-09-14] MEDS: CHOLECALCIFEROL (VITAMIN D) 400 UNITS TABLET PO SCH (08:18)
[2019-09-14] MEDS: VENLAFAXINE HCL XR 75 MG CAPXR PO SCH (08:19)
[2019-09-14] MEDS: PANTOprazole 40 MG TAB PO SCH ×2 (08:19→20:35)
[2019-09-14] MEDS: VENLAFAXINE HCL XR 150 MG CAPXR PO SCH (08:19)
[2019-09-14] MEDS: ARIPiprazole 5 MG TAB PO SCH (08:19)
[2019-09-14] MEDS: CYANOCOBALAMIN 500 MCG TABLET (VITAMIN B-12) PO SCH (08:19)
[2019-09-14] MEDS: TAMSULOSIN HCL 0.4 MG CAP PO SCH (08:19)
[2019-09-14] MEDS: FOLIC ACID 1 MG TAB PO SCH (08:19)
[2019-09-14] MEDS: predniSONE 10 MG TABLET PO SCH (08:19)
[2019-09-14] MEDS: HEPARIN SOD 5,000 UNIT/0.5 ML VIAL SQ SCH ×2 (08:20→20:35)
[2019-09-14] MEDS ORDERED: POTASSIUM CHLORIDE 20 MEQ TABCR PO STA (09:34)
--- NOTE | 2019-09-14 17:24 | Hospitalist Progress Note ---
Date of Service September 14, 2019 Assessment & Plan (1) Generalized weakness: 74 yo male here with headaches and generalized weakness which worsened after tapering down prednisone dose for TA. ESR>90, Crp also elevated from previous. Also with tachycardia, initially suspected PNA, ongoing tx for toe OM IV antibiotics, and with elevated lipase, mild pancreatitis on CT, elevated AST, Alk phos. Now much improved Related to tapering down prednisone dose too quickly Has received 1 dose of IV Solu-Medrol and back on prednisone 10 mg daily-would remain on this dose and follow-up with rheumatology Worked with PT/OT today and they did recommend rehab, however he feels he is strong enough to go home and his son is in agreement He does have paid caretakers and friends that can help him and he would like home health (2) Temporal arteritis: Has been receiving 10mg prednisone po. He has been on steroids for quite some time now and follows with rheumatology as an outpatient Reports having had reduction of dose 5 days prior, which is suspicious timely for increase in inflammation and cause of headache. Sed rate now greater than 90 but also with pancreatitis which could be contributing He did receive one-time dose of 20mg Solumedrol IV daily and is now back on prednisone 10 mg daily as above and feels much better Headaches are now resolved -Recommend continuing prednisone 10 mg daily and following up with rheumatology as an outpatient -Was previously on methotrexate which had been held for toe ulcer and osteomyelitis-consider restarting this in the future with rheumatology now that ulceration has healed -Continue folic acid 1 mg once daily (3) Pancreatitis: Pt denies EtOH use. No gallstones seen on CT abd/pel. CT read from overnight in ER MD notes reports pancreatic ductal dilatation, but Rad read here says no angry attic duct dilatation. Lipase in the 2000 range on admission and is now down to 1300 AST mildly elevated and trending downward, alkaline phosphatase also mildly elevated and trending downward Patient has no abdominal pain at all MRCP here again shows mild pancreatic duct dilation in the head of the pancreas, and mild pancreatitis, trace pleural effusions bilaterally, no CBD dilatation Appreciate GI consultation -Plan for outpatient EUS to be arranged in approximately 6 weeks-this will be arranged with [facility] (4) Right foot ulcer: Diagnosed with osteomyelitis of the right middle toe with an open ulcer during last admission 1 month ago He has been on IV vancomycin and ceftriaxone since that time ESR greater than 90 here but could be from pancreatitis and/or temporal arteritis as above He has no tenderness to palpation of the toe, no erythema or edema, the ulcer is almost healed Discussed case with infectious disease-no need to continue IV antibiotics at this time We will observe off antibiotics -Recommend follow-up with podiatry as an outpatient (5) Esophageal dilatation: Continue Pantoprazole 40 mg twice daily Recently had a procedure for his achalasia she reports has cured it-he has no problems eating now (6) Bilateral pneumonia: Suspected on admission, but ruled out He does have trace pleural effusions which show up on MRCP and this likely accounts for the findings on chest x-ray He has no fevers, no cough DC all antibiotics (7) Tachycardia: Has been having sinus tachycardia and was recently seen at cardiology and had an MCOT event monitor placed Presented here with sinus tachycardia with rates in the 120s to 130s at times which improved with IV fluids and restarting steroids Still has rates in the 90s to 110s here Continue cardiac monitoring after discharge and follow-up with cardiology -Will not start AV beto blocking agents at this time as he is asymptomatic with this (8) Chronic respiratory failure with hypoxia: On chronic O2 at home Continue supplemental O2 (9) Toe ulcer, right: As above (10) Achalasia: As above Now resolved (11) Depression: Continue venlafaxine and Abilify (12) Retention of urine, unspecified: Had Mendiola catheter in since last admission which is recently removed after a visit with urology several weeks ago -Continue Flomax No issues with urinary retention urine (13) DVT prophylaxis: Heparin SQ Disposition-patient adamant about going home with home health-we will plan for discharge to home health tomorrow Subjective Patient reports feeling much better. He denies any further headache or weakness since receiving IV Solu-Medrol yesterday and prednisone 10 mg today. He denies chest pains or shortness of breath. He has some occasional pain in the right middle toe at the site of his previous osteomyelitis. He is adamant that he return home with home health rather than back to rehab. He denies any abdominal pains. He would like to eat regular food. Discussed his care with his son at the bedside as well when I went back to visit the patient a second time in the afternoon. I discussed the case with gastroenterology as well as infectious disease today. He remains afebrile. Telemetry with sinus tachycardia and normal sinus rhythm with rates in the 90s to 110s with brief episodes to the 130s, PACs Review of Systems Review of Systems: All systems reviewed & are unremarkable except as noted in HPI & below Physical Exam Constitutional: WD/WN, vitals as above Eyes: + anicteric sclerae ENMT: external ear and nose normal, oropharynx normal Neck: trachea midline, no thyromegaly Respiratory: normal respiratory effort, lungs clear to auscultation Cardiovascular: RRR, no murmur, no edema Chest (Breasts): Chest: normal inspection of chest Gastrointestinal (Abdomen): normal bowel sounds, soft, nontender, no hepatosplenomegaly Musculoskeletal: Extremities: extremities normal to inspection; no cyanosis and no clubbing Skin: + ulcer (Right distal great toe with callus and small scab approximately 0.5 cm, no erythema, no tenderness or edema) Neurologic: moves all extremities and awake; no focal motor deficits Psychiatric: A+Ox3, euthymic affect Lymphatic: no lymphedema Results & Data ([facility]) Vital Signs (Past 12 Hours) Vital Signs Temp Pulse Pulse Resp BP Pulse Ox 09/14/19 15:26 36.8 C 93 H 18 143/81 H 97 09/14/19 15:12 94 09/14/19 08:00 109 H 09/14/19 07:52 37.2 C 107 H 22 133/76 98 Laboratory Results 09/14/19 09/14/19 Range/Units 05:45 05:45 WBC 18.52 H (4.8-10.8) K/uL RBC 3.27 L (4.7-6.1) M/uL Hgb 10.9 L (14.0-18.0) g/dL Hct 32.5 L (42-52) % MCV 99.4 (80-100) fL MCH 33.3 (25-34) pg MCHC 33.5 (32-36) g/dL RDW Std Deviation 58.5 H (36.4-46.3) fL RDW Coeff of Melba 16.1 H (11.5-14.5) % Plt Count 294 (130-400) K/uL MPV 9.8 (7.4-10.4) fL Sodium 140 (136-145) mmol/L Potassium 3.4 L (3.5-5.1) mmol/L Chloride 108 H (98-107) mmol/L Carbon Dioxide 27 (21-32) mmol/L Anion Gap 5.0 (3-11) BUN 12 (7-18) mg/dl Creatinine 0.87 (0.6-1.4) mg/dl Est Cr Clr Drug Dosing 88.3 ml/min Est GFR ( Amer) 97.8 Est GFR (Non-Af Amer) 84.4 BUN/Creatinine Ratio 13.9 (10-20) Glucose 105 H (70-99) mg/dl Calcium 9.1 (8.5-10.1) mg/dl Total Bilirubin 0.5 (0.2-1) mg/dl Direct Bilirubin 0.1 (0-0.2) mg/dl AST 34 (15-37) U/L ALT 44 (12-78) U/L Alkaline Phosphatase 137 H (45-117) U/L Total Protein 6.5 (6.4-8.2) gm/dl Albumin 2.3 L (3.4-5.0) gm/dl Lipase 1334 H (73-393) U/L PG Care Time/CCT Total # of Minutes Spent Total Time Spent with Patient: Total time spent is greater than 50% in coordination of care (as documented) at patient's floor/unit and/or counseling patient: Coding Level of Care Code 29542 Subseq Hosp Care Lvl 3 Diagnoses Generalized weakness R53.1 Temporal arteritis M31.6 Pancreatitis K85.90 Acute pancreatitis complication: unspecified Chronicity: acute Pancreatitis type: unspecified pancreatitis type Right foot ulcer L97.519 Esophageal dilatation K22.8 Bilateral pneumonia J18.9 Lung location: unspecified part of lung Pneumonia type: due to unspecified organism Tachycardia R00.0 Chronic respiratory failure with hypoxia J96.11 Toe ulcer, right L97.519 Achalasia K22.0 Depression F32.9 Retention of urine, unspecified R33.9 DVT prophylaxis Z29.9 (1) Pancreatitis Acute pancreatitis complication: unspecified Chronicity: acute Pancreatitis type: unspecified pancreatitis type Qualified Code(s): K85.90 - Acute pancreatitis without necrosis or infection, unspecified (2) Bilateral pneumonia Lung location: unspecified part of lung Pneumonia type: due to unspecified organism Qualified Code(s): J18.9 - Pneumonia, unspecified organism
[2019-09-14] MEDS: KETOROLAC TROMETHAMINE 15 MG/ML VIAL IV PRN (18:14)
[2019-09-14] MEDS ORDERED: SIMVASTATIN 40 MG TAB PO SCH (21:00)
[2019-09-14] MEDS ORDERED: LORazepam 0.5 MG TAB PO STA (23:38)
[2019-09-15] MEDS: KETOROLAC TROMETHAMINE 15 MG/ML VIAL IV PRN (01:57)
[2019-09-15] MEDS ORDERED: VANCOMYCIN TROUGH SCH (05:30)
[2019-09-15 07:52] LABS: Hematocrit (blood only) 34.6 % (42-52); Hemoglobin 10.9 g/dL (14.0-18.0); Mean Corpuscular Hemoglobin 31.1 pg (25-34); Mean Corpuscular Hgb Conc 31.5 g/dL (32-36); Mean Corpuscular Volume 98.6 fL (80-100); Mean Platelet Volume 9.5 fL (7.4-10.4); Platelet Count 295 K/uL (130-400); RDW Coefficient of Variation 16.3 % (11.5-14.5); RDW Standard Deviation 58.1 fL (36.4-46.3); Red Blood Count 3.51 M/uL (4.7-6.1); White Blood Count 14.96 K/uL (4.8-10.8)
[2019-09-15 08:24] LABS: Albumin Level 2.3 gm/dl (3.4-5.0); BUN Creatinine Ratio 13.1 (10-20); Calcium 8.9 mg/dl (8.5-10.1); Creatinine Clr Calc Pharmacy 98.5 ml/min; Est GFR (African American) 102.3; Est GFR (Non-African American) 88.3; Potassium 3.3 mmol/L (3.5-5.1)
[2019-09-15 08:26] LABS: Albumin Globulin Ratio 0.6 (0.9-2); Bilirubin,Total 0.5 mg/dl (0.2-1); Globulin 4.1 gm/dl (2.5-4.0); Total Protein 6.4 gm/dl (6.4-8.2)
[2019-09-15] MEDS ORDERED: POTASSIUM CHLORIDE 20 MEQ TABCR PO STA (08:33)
[2019-09-15] MEDS: TAMSULOSIN HCL 0.4 MG CAP PO SCH (08:54)
[2019-09-15] MEDS: PANTOprazole 40 MG TAB PO SCH (08:54)
[2019-09-15] MEDS: predniSONE 10 MG TABLET PO SCH (08:54)
[2019-09-15] MEDS: FOLIC ACID 1 MG TAB PO SCH (08:54)
[2019-09-15] MEDS: CHOLECALCIFEROL (VITAMIN D) 400 UNITS TABLET PO SCH (08:55)
[2019-09-15] MEDS: CYANOCOBALAMIN 500 MCG TABLET (VITAMIN B-12) PO SCH (08:55)
[2019-09-15] MEDS: ARIPiprazole 5 MG TAB PO SCH (08:55)
[2019-09-15] MEDS: VENLAFAXINE HCL XR 75 MG CAPXR PO SCH (08:55)
[2019-09-15] MEDS: VENLAFAXINE HCL XR 150 MG CAPXR PO SCH (08:55)
[2019-09-15] MEDS: HEPARIN SOD 5,000 UNIT/0.5 ML VIAL SQ SCH (08:55)
[2019-09-15] MEDS ORDERED: FUROSEMIDE 20 MG TAB PO SCH (09:00)
[2019-09-15] MEDS ORDERED: METOPROLOL TARTRATE 25 MG TAB PO SCH (11:00)
--- NOTE | 2019-09-15 12:24 | XCELERA ---
[id number] \\[email or web address]\[id number]_[email or web address]\[id number]}___[id number]
--- NOTE | 2019-09-15 13:57 | Discharge Summary ---
Date of Service September 15, 2019 Admission HPI Per Admitting Provider 74 y/o male presented to the ED with complaint of headache worsening over the previous 3 days. He had been treated for temporal arteritis over many months and has been decreasing prednisone dose currently at 10mg daily. In addition, he has noticed tachycardia, weakness and feeling "shaky". He denies having cough, F/C, abdominal pain, back pain, chest pain, visual changes, or N/V/D. Principal Diagnosis Acute pancreatitis, Sinus tachycardia, Generalized weakness, Adrenal insufficiency Discharge Exam Constitutional WD/WN, vitals as above Eyes + anicteric sclerae Neck trachea midline, no thyromegaly Respiratory normal respiratory effort, lungs clear to auscultation Cardiovascular RRR, no murmur, no edema Chest (Breasts) Chest: normal inspection of chest Gastrointestinal (Abdomen) normal bowel sounds, soft, nontender, no hepatosplenomegaly Musculoskeletal Extremities: extremities normal to inspection; no cyanosis and no clubbing Skin no rashes, warm and dry + ulcer (Right distal great toe with callus and small scab approximately 0.5 cm, no erythema, no tenderness or edema) Neurologic moves all extremities and awake; no focal motor deficits Psychiatric A+Ox3, euthymic affect Lymphatic no lymphedema Discharge Data Allergies Allergy/AdvReac Type Severity Reaction Status Date / Time No Known Allergies Allergy Unknown Verified 09/21/19 13:44 Consultations 09/13/19 03:57 ED Decision to Admit Stat 09/13/19 06:31 Consult Infectious Diseases Routine 09/13/19 09:57 Consult Gastroenterology Routine Ordered Studies 09/13/19 01:27 CT head/brain wo con Urgent 09/13/19 02:38 CT abd pelvis IV con only Urgent 09/14/19 00:02 MR MRCP Urgent CXR ECHO Hospital Course (1) Generalized weakness: This pt is a 74 yo male here with headaches and generalized weakness which worsened after tapering down prednisone dose for TA from 10mg to 5mg. ESR>90, Crp also elevated from previous. Also with tachycardia, initially suspected PNA based on CXR findings, and with ongoing tx for toe OM w/ IV antibiotics. Furthermore, he had elevated lipase, mild pancreatitis on CT, elevated AST, Alk phos. Now much improved with giving one dose of IV Solu Medrol and increasing prednisone dose back to 10mg daily Weakness and tachycardia likely related to tapering down prednisone dose too quickly -recommend remaining on prednisone 10 mg daily-would remain on this dose and follow-up with rheumatology as an outpt Worked with PT/OT here and they did recommend rehab, however he feels he is strong enough to go home and his son is in agreement He does have paid caretakers and friends that can help him and he would like home health (2) Temporal arteritis: Has been receiving 10mg prednisone po daily now as above. He has been on steroids for quite some time now and follows with rheumatology as an outpatient Reports having had reduction of dose 5 days prior, which is suspicious timely for increase in inflammation and cause of headache. Sed rate now greater than 90 but also with pancreatitis which could be contributing He did receive one-time dose of 20mg Solumedrol IV daily and is now back on prednisone 10 mg daily as above and feels much better Headaches are now resolved -Recommend continuing prednisone 10 mg daily and following up with rheumatology as an outpatient -Was previously on methotrexate which had been held for toe ulcer and osteomyelitis-consider restarting this in the future with rheumatology now that ulceration has healed -Continue folic acid 1 mg once daily (3) Pancreatitis: He had no abdominal pain at all that he recalls although ER notes he does have abd tenderness in epigastric region upon arrival Pt denies EtOH use. No gallstones seen on CT abd/pel. CT read from overnight in ER MD notes reports pancreatic ductal dilatation, but Rad read here says no pancreatic duct dilatation. Lipase in the 2000 range on admission and is now down to 800 on day of discharge AST mildly elevated and trending downward, alkaline phosphatase also mildly gaetano vated and trending downward MRCP here again shows mild pancreatic duct dilation in the head of the pancreas, and mild pancreatitis, trace pleural effusions bilaterally, no CBD dilatation Appreciate GI consultation -Plan for outpatient EUS to be arranged in approximately 6 weeks-this will be arranged with [facility] (4) Right foot ulcer: Diagnosed with osteomyelitis of the right middle toe with an open ulcer during last admission 1 month ago He has been on IV vancomycin and ceftriaxone since that time ESR greater than 90 here but could be from pancreatitis and/or temporal arteritis as above He has no tenderness to palpation of the toe, no erythema or edema, the ulcer is almost healed Discussed case with infectious disease-no need to continue IV antibiotics at this time We will observe off antibiotics -Recommend follow-up with podiatry as an outpatient PICC line was removed (5) Esophageal dilatation: Continue Pantoprazole 40 mg twice daily Recently had a POEM procedure for his achalasia she reports has cured it-he has no problems eating now (6) Bilateral pneumonia: Suspected on admission, but ruled out He does have trace pleural effusions which show up on MRCP and this likely accounts for the findings on chest x-ray He has no fevers, no cough DCd all antibiotics (7) Tachycardia: Has been having sinus tachycardia and was recently seen at cardiology and had an MCOT event monitor placed Presented here with sinus tachycardia with rates in the 120s to 130s at times which improved with IV fluids and restarting steroids Still has rates in the 90s to 110s here Did have 8 beats of VT on the night before discharge, was asymptomatic ECHO with preserved LVEF Discussed with his primary Wage Hand on the phone-agrees with starting beta benny at this time -start metoprolol tartrate 25mg po bid Continue cardiac monitoring after discharge with MCOT in place and follow-up with cardiology (8) Chronic respiratory failure with hypoxia: On chronic O2 at home Continue supplemental O2 (9) Toe ulcer, right: As above -observe off abx -f/u with Podiatry (10) Achalasia: As above Now resolved (11) Depression: Continue venlafaxine and Abilify (12) Retention of urine, unspecified: Had Mendiola catheter in place from previous admission which was recently removed after a visit with urology several weeks ago -Continue Flomax No issues with urinary retention here (13) DVT prophylaxis: Heparin SQ Disposition-patient adamant about going home with home health as opposed to going back to SNF--> plan for discharge to home w/ home health today Total Time Total Time Spent Total Time Spent (In Minutes): 40 min Total Time Includes: Examination of the Patient, Discharge Planning, Medication Reconciliation and Communication With Other Providers Discharge Plan Discharge Items Patient Disposition: Home - Home Health Services Reason For Visit: PANCREATITIS / L PNEUMONIA Discharge Diagnosis: Pancreatitis, headache, weakness, tachycardia Condition on Discharge: Fair Activity: As commented below Lifting: Gradually increase as tolerated Bathing: No limitations Exercise/Sports: Gradually increase as tolerated Exercise Comment: with home PT/OT Weightbearing: Full weightbearing Weightbearing Comment: with walker for assistance Non-emergency contact: Primary Care Provider Call non-emergency contact if: you have any medication questions and your symptoms worsen Follow-up/Referrals: [facility] [Provider Group] (Please, follow up at [facility] in [facility] for an EUS procedure to take a closer look at your pancreas. *A nurse from this clinic is to contact you with appointment information. If you have any questions, call the office at [phone].) Ovidio Donovan MD [Primary Care Provider] - 09/21/19 1:30 pm (Please, follow up at Dr. Donovan's office with his associate, Cassandra STRANGE, on September 21 at 1:30 pm. *If you need to change this appointment, call their office at [phone].) Teri Galindo PA-C [Physician Print Producer] - 09/28/19 4:00 pm (Please, follow up at [facility] with Teri Galindo PA-C on September 28 at 4:00 pm. *The office is located in [address] of [facility], next to [facility]. If you need to change this appointment, call the office at [phone].) Francoise Melchor MD, PhD [Physician] - (Please call for a follow up appointment within 2-3 weeks for your temporal arteritis ) Paula Garcia, DPM [Physician] - (Please call for a follow up appointment with the Side Seam Tender for your toe ulcer ) Angie Knox [facility] [Non-Staff] - Diet: Low Fat Ambulatory Orders: Comprehensive Metabolic Panel (Routine) Timeframe: 3 Days Location: Determined by Patient Ordered By: Rosario Yi Lipase (Routine) Timeframe: 3 Days Location: Determined by Patient Ordered By: Rosario Yi Add Attending Provider Instructions: You were admitted for worsening of your headache, weakness, and a fast heart rate. You were initially suspected to have a pneumonia, but it was determined that you do not. You were also found to have pancreatitis which is inflammation of the pancreas. It is yet unclear why you have pancreatitis, but the duct in your pancreas was mildly dilated and it is important that you have an endoscopic ultrasound (EUS) in about 6 weeks with the Property Appraiser to determine if there is a growth or tumor in your pancreas causing this. You have now completed the course of IV antibiotics for your toe infection and should follow up with your Side Seam Tender for the toe callus/ulcer. Your prednisone dose was increased back up to 10mg daily and you had improvement in your headache and weakness. Please follow up with Rheumatology for this. For you fast heart rate, you were started on a medication called metoprolol to slow down the rate of your heart. The Echocardiogram of your heart today was normal. Please continue to wear the heart monitor and follow up with the Cardiology PA as is scheduled for you. Follow up with Dr. Donovan as well-this was also scheduled for you. Home Health will come out to see how you're doing in the next 1-2 days. Please have blood work drawn to repeat your pancreas enzyme (lipase) and comprehensive metabolic panel checked in 3-5 days. Pending Studies at Discharge: No Stand-Alone Forms: [facility] Medications and DC Order Prescriptions: New metoprolol tartrate 25 mg Tablet 25 mg PO BID Qty: 60 RF: 0 furosemide 20 mg Tablet 20 mg PO QAM Qty: 30 RF: 0 potassium chloride 20 mEq tablet extended release 20 meq PO QAM Qty: 30 RF: 0 Continued prednisone 10 mg tablet 10 mg PO QAM RF: 0 folic acid 1 mg tablet 1 mg PO QAM Qty: 180 RF: 0 pantoprazole 40 mg tablet,delayed release (DR/EC) 40 mg PO BID Qty: 60 RF: 0 acetaminophen 325 mg Tablet 650 mg PO Q4 PRN (Reason: Fever Or Pain) RF: 0 cholecalciferol (vitamin D3) [Vitamin D3] 10 mcg (400 unit) Tablet 800 unit PO QAM RF: 0 venlafaxine 75 mg capsule,extended release 24hr 75 mg PO QAM Qty: 30 RF: 0 venlafaxine 150 mg capsule,extended release 24hr 150 mg PO QAM Qty: 30 RF: 0 simvastatin 40 mg tablet 40 mg PO QPM Qty: 90 RF: 0 tamsulosin 0.4 mg capsule 0.4 mg PO QAM Qty: 30 RF: 0 aripiprazole 5 mg tablet 5 mg PO QAM Qty: 30 RF: 0 cyanocobalamin (vitamin B-12) 1,000 mcg capsule 1,000 mcg PO DAILY Qty: 30 RF: 0 Changed spironolactone 25 mg tablet 25 mg PO QAM Qty: 30 RF: 0 Discontinued hyoscyamine sulfate 0.125 mg tablet, sublingual 0.125 mg SL Q4H PRN (Reason: dyspepsia) Qty: 30 RF: 1 oxycodone-acetaminophen 10-325 mg tablet 1 tab PO Q4H PRN (Reason: pain) Qty: 150 RF: 0 clonazepam 0.5 mg Tablet 0.5 mg PO Q12 PRN (Reason: Anxiety) RF: 0 vancomycin 750 mg Recon Soln 750 mg IV BID RF: 0 ceftriaxone 2 gram recon soln 2 gm IV DAILY Qty: 1 RF: 0 Discharge Orders: Discharge Order (Routine); Ordered 09/15/19 Ordered By: Rosario Yi Admission Data Admit Date/Time: 09/13/19 05:18 Attending Provider: Rosario Yi Admit Provider: Brandon Farah Primary Care Provider: Ovidio Donovan Other Providers: Brandon Farah ; Consuelo Rosario ; Angie Knox at [place] ; Lang Martinezsim ; [facility] Other Interventions: Discharge Summary Assessment (RN) Last Done: 09/15/19 14:02 DC Date/Time DO NOT enter until pt leaves facility: 09/15/19 14:40 Coding Level of Care Code D/C Day Management >30 mins Diagnoses Generalized weakness R53.1 Temporal arteritis M31.6 Pancreatitis K85.90 Acute pancreatitis complication: unspecified Chronicity: acute Pancreatitis type: unspecified pancreatitis type Right foot ulcer L97.519 Esophageal dilatation K22.8 Bilateral pneumonia J18.9 Lung location: unspecified part of lung Pneumonia type: due to unspecified organism Tachycardia R00.0 Chronic respiratory failure with hypoxia J96.11 Toe ulcer, right L97.519 Achalasia K22.0 Depression F32.9 Retention of urine, unspecified R33.9 DVT prophylaxis Z29.9
== END 2019-09-15 14:40 | disposition home health service (06) | DRG 439 ==
LOC: ED 00:55 → 1E 05:18 → SUATTDRO 05:18 → 1E 05:55 → 2S 17:42

== ENCOUNTER 2021-02-17 11:33 | Inpatient (IN) ==
[2021-02-17] MEDS ORDERED: methylPREDNISolone 125 MG/2 ML VIAL IV STA (11:57)
[2021-02-17] MEDS ORDERED: LEVALBUTEROL HCL 1.25 MG/3 ML NEB NEB STA ×2 (11:57→15:22)
[2021-02-17] MEDS ORDERED: RAPID SEQUENCE INDUCTION BAG ONE (11:58)
[2021-02-17] MEDS ORDERED: FUROSEMIDE 40 MG/4 ML VIAL IV STA (12:01)
[2021-02-17] MEDS ORDERED: FUROSEMIDE 40 MG/4 ML VIAL IV ONE (12:01)
[2021-02-17] MEDS ORDERED: HEPARIN 25000 UNIT/500 ML D5W IV ONE (12:04)
[2021-02-17] MEDS ORDERED: HEPARIN SOD (PORCINE) 1000 UNIT/ML ONE (12:04)
[2021-02-17 12:06] LABS: Hematocrit (blood only) 36.7 % (42-52); Hemoglobin 11.9 g/dL (14.0-18.0); Mean Corpuscular Hemoglobin 34.2 pg (25-34); Mean Corpuscular Hgb Conc 32.4 g/dL (32-36); Mean Corpuscular Volume 105.5 fL (80-100); Mean Platelet Volume 10.8 fL (7.4-10.4); Nucleated RBC # (auto) 0.05 K/uL (0-0); Nucleated RBC % (auto) 0.2 %; Platelet Count 322 K/uL (130-400); RDW Coefficient of Variation 14.9 % (11.5-14.5); RDW Standard Deviation 57.2 fL (36.4-46.3); Red Blood Count 3.48 M/uL (4.7-6.1); White Blood Count 27.22 K/uL (4.8-10.8)
[2021-02-17] MEDS ORDERED: Heparin IV Adult Wt-Based Standard *NO* Bolus Protocol IV ONE (12:07)
[2021-02-17] MEDS ORDERED: PIPERACILL/TAZOBAC CONSULT ACTIVE PRN ×2 (12:08→16:06)
[2021-02-17] MEDS ORDERED: PIPERACILLIN/TAZOBACTAM 4.5 GM/120 ML BAG IV ONE (12:08)
[2021-02-17] MEDS ORDERED: levoFLOXacin/D5W 750 MG/150 ML BAG IV STA (12:08)
[2021-02-17] MEDS ORDERED: OPTIRAY 320 125ml IV ONE (12:15)
[2021-02-17 12:22] LABS: Alanine Aminotransferase 21 U/L (12-78); Albumin Level 3.1 gm/dl (3.4-5.0); Aspartate Aminotransferase 13 U/L (15-37); BUN Creatinine Ratio 34.7 (10-20); Blood Urea Nitrogen 63 mg/dl (7-18); Calcium 9.2 mg/dl (8.5-10.1); Carbon Dioxide 20 mmol/L (21-32); Chloride 105 mmol/L (98-107); Creatinine Clr Calc Pharmacy 46.9 ml/min; Est GFR (African American) 41.2 ml/min; Est GFR (Non-African American) 35.5 ml/min; Glucose 244 mg/dl (70-99); Magnesium 1.9 mg/dl (1.8-2.4); Potassium 5.1 mmol/L (3.5-5.1); Sodium 142 mmol/L (136-145)
[2021-02-17] MEDS ORDERED: SODIUM CHLORIDE 0.9% 1000ML 1,000 ML IV ONE ×2 (12:22→12:28)
[2021-02-17] MEDS ORDERED: VANCOMYCIN CONSULT ACTIVE PRN ×2 (12:22→16:06)
[2021-02-17] MEDS ORDERED: VANCOMYCIN HCL 2,500 MG in SODIUM CHLORIDE 0.9% 500 ML IV ONE (12:22)
[2021-02-17] MEDS ORDERED: HEPARIN SODIUM/DEXTROSE 25,000 UNITS/500 ML BAG IV SCH (12:22)
[2021-02-17 12:24] LABS: Basophils # (auto) 0.04 K/uL (0-0.2); Basophils % (auto) 0.1 %; Immature Granulocytes # (auto) 0.87 K/uL (0.00-0.02); Immature Granulocytes % (auto) 3.2 %; Lymphocytes # (auto) 1.72 K/uL (1.2-3.4); Lymphocytes % (auto) 6.3 %; Monocytes # (auto) 1.24 K/uL (0.11-0.59); Monocytes % (auto) 4.6 %; Neutrophils # (auto) 23.35 K/uL (1.4-6.5); Neutrophils % (auto) 85.8 %
[2021-02-17] MEDS ORDERED: HYDROCORTISONE SOD SUCCINATE 100 MG/2 ML VIAL IV STA (12:26)
[2021-02-17 12:27] LABS: Albumin Globulin Ratio 0.9 (0.9-2); Alkaline Phosphatase 62 U/L (45-117); Bilirubin,Total 1.1 mg/dl (0.2-1); Globulin 3.5 gm/dl (2.5-4.0); NT Pro B Type Natriuretic Pept 1143 pg/ml (0-1800); Total Protein 6.6 gm/dl (6.4-8.2); Troponin I < 0.015 ng/ml (0-0.045)
[2021-02-17] MEDS ORDERED: SODIUM CHLORIDE 0.9% 1000ML 500 ML IV ONE (12:32)
--- NOTE | 2021-02-17 12:44 | CT Scan Report ---
ABDOMEN AND PELVIS CT WITH IV CONTRAST CT DOSE: HISTORY: Hypotensive. Generalized abdominal pain. TECHNIQUE: Multiaxial CT images of the abdomen and pelvis were performed following the use of intrave nous contrast. A dose lowering technique was utilized adhering to the principles of ALARA. COMPARISON STUDY: Abdomen and pelvis CT 09/13/2019. MRCP 09/14/2019. FINDINGS: Please refer to the same day chest CTA for further evaluation of the lung bases. No pneumop eritoneum. No pneumatosis. No suspicious lytic or blastic osseous lesions. Small fat-containing left inguinal hernia. Stable calcifications within the central liver. No hepatic or splenic masses. The ga llbladder, pancreas, and adrenal glands are unremarkable. Moderate to severe bilateral cortical renal thinning. A few scattered bilateral renal hypodense lesions. Dominant hypodense lesion within the up per pole the right kidney measures 1.9 cm. This does not clearly represent a simple cyst and could re present a hyperdense cyst or renal mass. No retroperitoneal lymphadenopathy. The main portal vein is patent. Moderate calcified plaque within the aorta and iliac arteries is again noted. There are multi ple brachytherapy seeds seen at the prostate gland. No pelvic lymphadenopathy identified. The bladder is decompressed and therefore not well evaluated. No ureteral stones. No hydronephrosis. There are f ew punctate bilateral renal calculi. Colonic diverticulosis. No evidence for acute diverticulitis. No bowel wall thickening or obstruction. Normal appendix. Stable mild superior endplate deformity at L2 . IMPRESSION: 1. No bowel wall thickening or obstruction. 2. Bilateral nephrolithiasis. No hydronephrosis. 3. A 1.8 cm hypodense lesion within the right kidney. This does not clearly represent a simple cyst. This could represent a hyperdense cyst or possibly a renal mass. Dedicated follow-up nonemergent merritt l ultrasound is recommended for further evaluation. 4. Additional findings as described above. ACT 112: Negative or not required by law. Electronically signed by: Óscar Justice M.D. 02/17/2021 12:42 PM
[2021-02-17] MEDS ORDERED: MAGNESIUM SULFATE IV ONE (12:45)
[2021-02-17] MEDS ORDERED: SODIUM CHLORIDE 0.9% IV ONE (12:45)
--- NOTE | 2021-02-17 12:47 | CT Scan Report ---
CT ANGIOGRAM OF THE CHEST CLINICAL HISTORY: PE COMPARISON STUDY: June 03, 2019 TECHNIQUE: Following the IV administration of 112 mL of Optiray, CT angiogram of the thorax was perfo rmed from the thoracic inlet to the lung bases utilizing the pulmonary embolus protocol. Images are r eviewed in the axial, sagittal, and coronal planes. IV contrast was administered without complication . MIP imaging was performed. A dose lowering technique was utilized adhering to the principles of AL LOVE. CT DOSE: 2610.65 mGy.cm FINDINGS: Adequate opacification within main pulmonary artery is seen. Evaluation of peripheral branches is sli ghtly limited due to respiratory motion artifact. Main pulmonary artery is dilated measuring 3.0 cm i n diameter. No right heart strain is seen. No pathologically enlarged axillary mediastinal or hilar lymph nodes were visualized. Thoracic aorta is tortuous, normal in caliber with scattered calcifications of its wall. Visualized portion of thyroid gland shows no evidence of focal lesions. Proximal aspect of esophagus is patulous, slightly dilated with air-fluid level. There is moderate fa t-containing hiatal hernia is seen. Tracheobronchial tree is patent. No large infiltrates or consolidative lesions are seen. Patchy areas of peripheral septal thickening, traction bronchiectasis is again seen however evaluatio n is limited due to motion artifact. No definite honeycombing is demonstrated. Possible mild groundgl ass attenuation is seen within areas of fibrotic changes. Few calcifications are seen within peripher al aspect of the right lower lobe, stable since prior. Limited evaluation of upper abdominal viscera shows no evidence of focal lesions. Evaluation is limit ed due to mild motion and beam hardening artifact. Osseous structures: Multilevel degenerative changes of the spine. IMPRESSION: 1. No definite central pulmonary embolus is seen however evaluation of peripheral branches is limite d due to motion artifact. 2. Mild dilatation of the main pulmonary artery could be seen in pulmonary hypertension. No right he art strain demonstrated. 3. No large infiltrates or consolidative lesions are seen however there is redemonstration of mild f ibrotic changes at peripheral aspect of bilateral lungs which is not significantly changed since prio r. Limited evaluation due to motion artifact. 4. Hiatal hernia. Patulous dilated proximal esophagus with air-fluid level. Please correlate above-m entioned findings with prior history of esophageal abnormalities. ACT 112: Negative or not required by law. The above report was generated using voice recognition software. It may contain grammatical, syntax o r spelling errors. Electronically signed by: Bernie Parker DO 02/17/2021 12:45 PM
[2021-02-17 13:17] LABS: Amylase 234 U/L (25-115); Lipase 28 U/L (73-393)
--- NOTE | 2021-02-17 13:17 | XRay Report ---
SINGLE VIEW CHEST CLINICAL HISTORY: Sepsis. FINDINGS: An AP, portable, upright chest radiograph is compared to study dated 09/13/2019 and correlat ed with chest CT dated 06/03/2019. The heart is enlarged noting atherosclerotic calcification and unc oiling of the thoracic ureter. The pulmonary vasculature is noncongested. Chronic interstitial thicke chelsy is similar to previous. There are scattered calcified granulomas. Scarring/atelectasis is noted at the lung bases. There is no evidence of superimposed airspace consolidation or pleural effusion. N o pneumothorax is seen. The skeletal structures are osteopenic. The bony thorax is grossly intact. Ad vanced degenerative change is seen in the shoulders. Surgical anchors are noted in the left humeral h ead. Spondylotic change is noted throughout the imaged spine. IMPRESSION: Cardiomegaly with no acute cardiopulmonary abnormality. ACT 112: Negative or not required by law. Electronically signed by: Leroy Wasserman M.D. 02/17/2021 1:16 PM
[2021-02-17 13:18] LABS: INR 1.5 (0.9-1.1); Partial Thromboplastin Ratio 0.9; Partial Thromboplastin Time 22.8 Seconds (21.0-31.0); Prothrombin Time 14.4 Seconds (9.0-12.0)
--- NOTE | 2021-02-17 13:26 | History & Physical Report ---
Date of Service February 17, 2021 Assessment & Plan (1) Acute respiratory failure with hypoxia: ER physicians discussed with ICU, they are recommending PCU admission for now Continue BiPAP as ordered, okay to titrate down FiO2. Hopefully titrate down to nasal cannula soon Unclear etiology, I do suspect this may be COPD but ABG has not yet been resulted. Consideration of addisonian crisis by ER, patient was given steroids Trend lactic acid (2) Chronic obstructive pulmonary disease: BiPAP as noted above We will continue Solu-Medrol 60 mg every 8h for now Duo nebs Unclear if there is concomitant pneumonia, leukocytosis may be from acute distress. Nonetheless, will treat with broad-spectrum antibiotics with Zosyn and vancomycin. Okay to discontinue Levaquin. (3) Hypertension: Patient appears to be on furosemide 20 mg daily along with Lopressor 25 mg twice daily Also Eliquis is ordered as outpatient, question of A. fib history although not present today. We will continue metoprolol as ordered Trend cardiac enzymes Check 2D echo We will ask cardiology to evaluate for further recommendations regarding tachycardia and hypertension (4) Temporal arteritis: Per previous documentation, patient was on 8 mg of prednisone will methotrexate Will continue methotrexate as ordered. Okay to hold prednisone as patient will be on Solu-Medrol (5) Dyslipidemia: Patient is on simvastatin 40mg, will check fasting lipid panel History of Present Illness Chief Complaint: found down Primary Care Provider: Ovidio Donovan MD This is a 75-year-old male with past medical history of temporal arteritis on long-term methotrexate/prednisone treatment, COPD, cor pulmonale that presents today after being found down. Patient is awake but seems a little confused and unable to provide any history. Is currently on BiPAP. Therefore, above the history as per ER physician. Dr. Katz tells me that the patient was found on his front lawn by neighbors. He appeared to be mottled at that time and had significant shortness of breath. He was brought to the ER emergently and was found to be hypotensive at 80/60 with a pulse of 150. Emergency room work-up revealed a significantly elevated white count and serum lactate but there was no clear etiology. Patient was placed on BiPAP with improvement of his vital signs including O2 sat of 100%. ER physician told me that they considered possible adrenal crisis as an etiology as the patient is known to be on prednisone and give the patient both Solu- Medrol and Solu-Cortef along with Zosyn, vanco and Levaquin for possible sepsis. Remainder of labs ordered, including ABG, random cortisol, urinalysis, etc. are still pending at the time of this dictation. At time of evaluation, nursing was placing a Mendiola catheter. Patient appear to be lethargic but was arousable. He did answer some questions. He admitted that he has no memory events and provide no further details. Vital signs are now appear to be more stable with a blood pressure 119/74, pulse of 130 (documented, now down to 112, ST on monitor), respiratory rate of 21, notches as 100%. Allergies Allergy/AdvReac Type Severity Reaction Status Date / Time No Known Allergies Allergy Unknown Verified 02/17/21 14:01 Home Medications Medication Instructions Recorded Confirmed Type cyanocobalamin (vitamin B-12) 1,000 mcg PO QAM 10/06/19 01/09/21 History apixaban 5 mg tablet 5 mg PO BID #180 tab 10/21/20 01/09/21 Rx aripiprazole 5 mg tablet 5 mg PO QAM #90 tab 10/21/20 01/09/21 Rx cholecalciferol (vitamin D3) 10 800 unit PO QAM #90 tab 10/21/20 01/09/21 Rx mcg (400 unit) tablet furosemide 20 mg tablet 20 mg PO QAM #90 tab 10/21/20 01/09/21 Rx metoprolol tartrate 25 mg tablet 25 mg PO BID #180 tab 10/21/20 01/09/21 Rx potassium chloride 20 mEq 20 meq PO QAM #90 tab 10/21/20 01/09/21 Rx tablet,extended release prednisone 1 mg tablet 1 mg PO .COMPLEX #120 tab 10/21/20 01/09/21 Rx prednisone 5 mg tablet 10 mg PO DAILY #90 tab 10/21/20 01/09/21 Rx simvastatin 40 mg tablet 40 mg PO QPM #90 tab 10/21/20 01/09/21 Rx venlafaxine 150 mg 150 mg PO QAM #90 cap 10/21/20 01/09/21 Rx capsule,extended release 24 hr venlafaxine 75 mg capsule,extended 75 mg PO QAM #90 cap 10/21/20 01/09/21 Rx release 24 hr folic acid 1 mg tablet 1 mg PO QAM #90 tab 11/18/20 01/09/21 Rx oxycodone-acetaminophen 10 mg-325 1 tab PO Q4H PRN #150 tab 01/17/21 Rx mg tablet bupropion HCl 100 mg PO QAM 02/17/21 02/17/21 History methotrexate sodium 7.5 mg PO UD 02/17/21 02/17/21 History spironolactone 50 mg PO BID 02/17/21 02/17/21 History tamsulosin 0.4 mg PO QAM 02/17/21 02/17/21 History Past Med/Surg History Medical History Achalasia Degenerative disc disease Esophageal dilatation History of malignant neoplasm of prostate History of nicotine dependence History of non-healing wound PT'S SON REPORTS PT HAD THESE (TO LOWER LEGS) AND HOME NURSING CHECKS BUT HAVE IMPROVED GREATLY History of pneumonia Hx of pancreatitis On home oxygen therapy 3lpm prn Osteoarthritis Paroxysmal atrial fibrillation DX SEP 2019> DID NOT START ELIQUIS PER PATIENTS SON> WEARING HALTER MONITOR CURRENTLY > [facility]> SON REPORTS PT IS VERY NON COMPLIANT WITH MEDS/TREATMENT PLANS Peripheral neuropathy bilateral hands & feet Sleep apnea non-compliant with cpap Solitary pulmonary nodule Surgical History H/O toe surgery History of arthroscopic surgery of shoulder bilateral History of colonoscopy History of cystoscopy with stent History of esophagogastroduodenoscopy (EGD) History of nasal septoplasty History of tonsillectomy Hx of shoulder surgery open left shoulder Family History Other Hypertension Denies family history of Deep vein thrombosis Cancer Social History Smoking Status: Former smoker Tobacco Type: Cigarettes Second Hand Exposure: Yes; Hx Alcohol Use: Yes Alcohol type: beer Hx Substance Use: Yes Substance Use Type Other:: MEDICAL [employer]IJ[employer] AT HS Preferred Language: Swazi Communication Ability: Effective Visual Impairment: No Limitations Hearing Ability: Normal 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 Beliefs That Will Affect Care: None marital status: Single Current Living Situation: Alone Feels Safe at Home: Yes Assistive Devices: Glasses Review of Systems Review of Systems: Unobtainable due to cognitive status and Unobtainable due to reduced consciousness Physical Exam Constitutional: + lethargic; no acute distress Neck: trachea midline, no thyromegaly Respiratory: normal respiratory effort Auscultation: + diminished lung sounds; no crackles, no rales, no rhonchi and no wheezes Cardiovascular: Rate/Rhythm: regular rate, regular rhythm and + tachycardic Heart Sounds: normal S1 and normal S2 Vessels: no JVD and no carotid bruit Gastrointestinal (Abdomen): Inspection/Auscultation: abdomen normal to i nspection Percussion/Palpation: abdomen soft; abdomen nontender, no guarding, abdomen not rigid and no hepatosplenomegaly Skin: no rashes, warm and dry Results & Data Results & Data ([facility]) Vital Signs (Past 12 Hours) Vital Signs Pulse Pulse Resp BP Pulse Ox 02/17/21 12:45 130 H 21 119/74 100 02/17/21 12:37 124 H 126/83 88 L 02/17/21 12:30 136 H 125/81 100 02/17/21 12:28 135 H 31 H 100 02/17/21 12:27 135 H 138/90 100 02/17/21 12:15 126 H 31 H 02/17/21 12:01 145 H 23 76/49 L 02/17/21 11:58 95 02/17/21 11:38 140 H 24 101/[address] ANGIOGRAM OF THE CHEST CLINICAL HISTORY: PE COMPARISON STUDY: June 03, 2019 TECHNIQUE: Following the IV administration of 112 mL of Optiray, CT angiogram of the thorax was performed from the thoracic inlet to the lung bases utilizing the pulmonary embolus protocol. Images are reviewed in the axial, sagittal, and coronal planes. IV contrast was administered without complication. MIP imaging was performed. A dose lowering technique was utilized adhering to the principles of ALARA. CT DOSE: 2610.65 mGy.cm FINDINGS: Adequate opacification within main pulmonary artery is seen. Evaluation of peripheral branches is slightly limited due to respiratory motion artifact. Main pulmonary artery is dilated measuring 3.0 cm in diameter. No right heart strain is seen. No pathologically enlarged axillary mediastinal or hilar lymph nodes were visualized. Thoracic aorta is tortuous, normal in caliber with scattered calcifications of its wall. Visualized portion of thyroid gland shows no evidence of focal lesions. Proximal aspect of esophagus is patulous, slightly dilated with air-fluid level. There is moderate fat-containing hiatal hernia is seen. Tracheobronchial tree is patent. No large infiltrates or consolidative lesions are seen. Patchy areas of peripheral septal thickening, traction bronchiectasis is again seen however evaluation is limited due to motion artifact. No definite honeycombing is demonstrated. Possible mild groundglass attenuation is seen within areas of fibrotic changes. Few calcifications are seen within peripheral aspect of the right lower lobe, stable since prior. Limited evaluation of upper abdominal viscera shows no evidence of focal lesions. Evaluation is limited due to mild motion and beam hardening artifact. Osseous structures: Multilevel degenerative changes of the spine. IMPRESSION: 1. No definite central pulmonary embolus is seen however evaluation of peripheral branches is limited due to motion artifact. 2. Mild dilatation of the main pulmonary artery could be seen in pulmonary hypertension. No right heart strain demonstrated. 3. No large infiltrates or consolidative lesions are seen however there is redemonstration of mild fibrotic changes at peripheral aspect of bilateral lungs which is not significantly changed since prior. Limited evaluation due to motion artifact. 4. Hiatal hernia. Patulous dilated proximal esophagus with air-fluid level. Please correlate above-mentioned findings with prior history of esophageal abnormalities. --- ABDOMEN AND PELVIS CT WITH IV CONTRAST CT DOSE: HISTORY: Hypotensive. Generalized abdominal pain. TECHNIQUE: Multiaxial CT images of the abdomen and pelvis were performed following the use of intravenous contrast. A dose lowering technique was utilized adhering to the principles of ALARA. COMPARISON STUDY: Abdomen and pelvis CT 09/13/2019. MRCP 09/14/2019. FINDINGS: Please refer to the same day chest CTA for further evaluation of the lung bases. No pneumoperitoneum. No pneumatosis. No suspicious lytic or blastic osseous lesions. Small fat-containing left inguinal hernia. Stable calcifications within the central liver. No hepatic or splenic masses. The gallbladder, pancreas, and adrenal glands are unremarkable. Moderate to severe bilateral cortical renal thinning. A few scattered bilateral renal hypodense lesions. Dominant hypodense lesion within the upper pole the right kidney measures 1.9 cm. This does not clearly represent a simple cyst and could represent a hyperdense cyst or renal mass. No retroperitoneal lymphadenopathy. The main portal vein is patent. Moderate calcified plaque within the aorta and iliac arteries is again noted. There are multiple brachytherapy seeds seen at the prostate gland. No pelvic lymphadenopathy identified. The bladder is decompressed and therefore not well evaluated. No ureteral stones. No hydronephrosis. There are few punctate bilateral renal calculi. Colonic diverticulosis. No evidence for acute diverticulitis. No bowel wall thickening or obstruction. Normal appendix. Stable mild superior endplate deformity at L2. IMPRESSION: 1. No bowel wall thickening or obstruction. 2. Bilateral nephrolithiasis. No hydronephrosis. 3. A 1.8 cm hypodense lesion within the right kidney. This does not clearly represent a simple cyst. This could represent a hyperdense cyst or possibly a renal mass. Dedicated follow-up nonemergent renal ultrasound is recommended for further evaluation. 4. Additional findings as described above. PG Care Time/CCT Total # of Minutes Spent Total Time Spent with Patient: Total time spent is greater than 50% in coordination of care (as documented) at patient's floor/unit and/or counseling patient: Coding Level of Care Code 72477 Initial Inpt Care Lvl 3 Diagnoses Acute respiratory failure with hypoxia J96.01 Chronic obstructive pulmonary disease J44.9 Hypertension I10 Temporal arteritis M31.6 Dyslipidemia E78.5
[2021-02-17 13:35] LABS: Appearance Urine Clear (Clear); Bacteria Urine Automated Negative (Negative); Bilirubin Urine Negative (Negative); Blood Urine 2+ (Negative); Color Urine Yellow; Glucose Urine UA Trace (Negative); Ketones Urine 1+ (Negative); Leukocyte Esterase Urine Negative (Negative); Nitrite Urine Negative (Negative); Protein Urine Trace (Negative); Specific Gravity Urine > 1.045 (1.000-1.030); Urobilinogen Urine Negative (Negative)
[2021-02-17 13:47] LABS: Base Excess ABG -8.2 mEq/L (-9-1.8); HCO3 ABG 17 mmol/L (19-24); Oxygen Saturation ABG 99.2 % (90-95); PCO2 ABG 33 mmHg (35-46); PO2 ABG 160 mmHg (80-95); pH ABG 7.32 (7.35-7.45)
[2021-02-17 13:49] LABS: Allen Test Pos (Pos)
[2021-02-17] MEDS ORDERED: ONDANSETRON INJ 2 MG/ML 2 ML VIAL IV PRN (16:06)
[2021-02-17] MEDS ORDERED: VANCOMYCIN HCL 1,000 MG in SODIUM CHLORIDE 0.9% 250 ML IV SCH (16:06)
[2021-02-17] MEDS ORDERED: SODIUM CHLORIDE 0.9% 1000ML 1,000 ML IV SCH ×2 (16:06)
[2021-02-17 16:45] LABS: iSTAT Allen Test Pass; iSTAT Art Bld Gas pCO2 Correct 27 mmHg (35-46); iSTAT Art Bld Gas pH Corrected 7.309 (7.35-7.45); iSTAT Arterial Blood Gas HCO3 14 meg/L (19-24); iSTAT Arterial Blood Gas pCO2 27 mmHg (35-46); iSTAT Arterial Blood Gas pH 7.31 (7.35-7.45); iSTAT Arterial Blood Gas pO2 215 mmHg (80-95); iSTAT Arterial Blood Gas pO2 C 215; iSTAT Carbon Dioxide 14 mmol/L (24-31); iSTAT FiO2 50 %; iSTAT Hematocrit 26 % (42-52); iSTAT Hemoglobin 8.8 g/dl (14.0-18.0); iSTAT Potassium 4.9 mmol/L (3.3-5.0); iSTAT Site R Radial; iSTAT Sodium 142 mmol/L (135-144)
[2021-02-17] MEDS ORDERED: SPIRONOLACTONE 25 MG TAB PO SCH (17:00)
--- NOTE | 2021-02-17 17:03 | CT Scan Report ---
CT head/brain wo con CLINICAL HISTORY: 75 years-old Male with AMS. Acutely altered mental status TECHNIQUE: Multiple axial CT images of the head were obtained without contrast. A dose lowering tech nique was utilized adhering to the principles of ALARA. CT DOSE: 1174.57 mGy.cm COMPARISON: Head CT 09/13/2019. FINDINGS: Motion degraded exam. No acute intracranial hemorrhage, midline shift, intracranial mass, hydrocephal us, territorial ischemia or abnormal extra-axial collection. Age-related involutional changes. White matter hypodensities suggestive of chronic microvascular ischemic disease. Cerebral vascular calcific ations. The calvarium is intact. Mastoid air cells are clear. Mild mucosal thickening with small air-fluid l evel of the right maxillary sinus. Unremarkable soft tissues. IMPRESSION: No acute intracranial abnormality. ACT 112: Negative or not required by law. The above report was generated using voice recognition software. It may contain grammatical, syntax o r spelling errors. Electronically signed by: Addy Larose M.D. 02/17/2021 5:02 PM
[2021-02-17] MEDS: ALBUT/IPRATROP 3MG/0.5MG NEB 3 ML VIAL NEB SCH ×2 (17:35→19:07)
[2021-02-17] MEDS ORDERED: methylPREDNISolone 40 MG in SYRINGE 0 ML IV SCH (18:00)
--- NOTE | 2021-02-17 18:14 | Critical Care Consultation ---
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 Wednesday and prednisone on a daily basis, hypertension, depression, Paroxysmal A. fib on apixaban, COPD on 3 L nasal cannula was admitted to the hospital as he was found to be on his lawn. initial blood pressure was 80/60 with a pulse of 150 Initial lactate was 14. Patient was given 2.5 lactate went down to 4.8. CT chest 02/17/2021 personally reviewed: Increased interstitial thickening appreciated bilaterally more in the apical lobe peripherally. No clear infiltrate identified Old granulomatous No mediastinal adenopathy EKG 02/17/2021: No acute events undefined, right axis deviation, QTC 463 Patient has seen the patient in the ED 1 which is chronic and was also appreciated in August ABG 02/17/2021: 7.32/33/160 on 50% --Metabolic encephalopathy Etiology is unclear right now CT head 02/17/2021 negative, patient moving all extremities on command Aspiration precautions Follow-up UDS Continue with empiric antibiotics Follow-up septic work-up ? seziure with a blank stare. I will get EEG --Transient hypotension Responded to fluids Random cortisol 66.5 COVID-19 PCR negative Procalcitonin negative -- HAGMA Delta-delta: Greater than 2 Likely sec to metabolic acidosis plus alkalosis Metabolic acidosis likely from lactic acidosis, follow urine lites to a certain the reason for alkalosis Monitor -- KAYKAY Likely secondary to dehydration, prerenal component Follow-up urine lites Monitor BUN/creatinine Avoid nephrotoxic medications Strict ins and outs --COPD Unclear if this is an exacerbation We will continue with steroids for the time being and gradually taper it off --Elevated troponin Likely type II MD Trend troponins --A. fib On metoprolol 25 twice daily Will resume once the blood pressure is more stable --History of temporal arthritis Biopsy-proven On methotrexate 15 mg q. Wednesday as well as prednisone Follow methotrexate level --Anxiety with depression On bupropion, venlafaxine and aripiprazole as an outpatient Would continue with same --History of hypertension Hold spironolactone --BPH Continue with tamsulosin --Prophylaxis VTE: IPC's. Apixaban on hold GI: Pepcid Lines: Peripheral Diet: N.p.o. Plan: ABG 02/17/2021: 7.32/33/160 on 50% Continue with antibiotics. Patient with vancomycin in the ED. Patient is not spiking any fever. Possibility of meningitis still there. We will get LP Absence seizure is also possibility given the blank stare. I will get EEG UDS for any tox screens. EtOH level, follow-up serum osmolality and urine osmolality Follow-up TSH ABG does not show clear signs of hypoxia. Patient is hyperventilating likely compensatory mechanism for metabolic acidosis Follow methotrexate level Leukocytosis on presentation is likely from heme concentration from dehydration that the patient came in with. High normal potassium. Likely from KAYKAY as well as being on spironolactone. Hold spironolactone. Repeat CBC and CMP. I discussed the case with patient's son Jacky. All questions inquiries of the patient's son were answered in the best possible way. I have personally spent 67 minutes of critical care time in the direct management of this patient. This is a life/limb threatening event. This includes time spent evaluating patient, direct bedside care, chart review, placing orders, interpretation of diagnostic studies, discussion with consultants, patient, and family members, as well as other required patient management activities. This time is exclusive of all separately billable procedures, and teaching time and separate from and in addition to any other critical care service time. Please note the above document was generated using voice recognition software. It may contain grammatical, syntax or spelling errors. (2) Anxiety and depression: (3) Paroxysmal atrial fibrillation: (4) Chronic obstructive pulmonary disease: (5) Chronic respiratory failure with hypoxia: (6) Temporal arteritis: (7) KAYKAY (acute kidney injury): History of Present Illness Attending Physician: Jose Alberto Kenyon DO History of Present Illness 75-year-old male past medical history of temporal arthritis on methotrexate 15 mg q. Wednesday and prednisone on a daily basis, hypertension, depression, Paroxysmal A. fib on apixaban, COPD on 3 L nasal cannula was admitted to the hospital as he was found to be on his lawn. initial blood pressure was 80/60 with a pulse of 150 Initial lactate was 14. Patient was given 2.5 lactate went down to 4.8. Patient was sent to the floor as his blood pressure improved so did his mentation. On the floor he had an episode where he was staring and not responding along with tachycardia. In the ICU at the time of examination patient heart rate was in the 120s. He was answering questions appropriately. Moving all extremities on command. He was on BiPAP 14/6 30% saturating 97%. I went down to 10/6. Patient denies any headache, no nausea vomiting, no abdominal pain. He still have the blank stare occasionally. Social history: 50+ pack year smoking history, quit approximately at the age of 65 History was obtained from previous chart as well as patient's son Jacky. Allergies Allergy/AdvReac Type Severity Reaction Status Date / Time No Known Allergies Allergy Unknown Verified 02/17/21 14:01 Home Medications Medication Instructions Recorded Confirmed Type cyanocobalamin (vitamin B-12) 1,000 mcg PO QAM 10/06/19 02/17/21 History apixaban 5 mg tablet 5 mg PO BID #180 tab 10/21/20 02/17/21 Rx aripiprazole 5 mg tablet 5 mg PO QAM #90 tab 10/21/20 02/17/21 Rx cholecalciferol (vitamin D3) 10 800 unit PO QAM #90 tab 10/21/20 02/17/21 Rx mcg (400 unit) tablet furosemide 20 mg tablet 20 mg PO QAM #90 tab 10/21/20 02/17/21 Rx metoprolol tartrate 25 mg tablet 25 mg PO BID #180 tab 10/21/20 02/17/21 Rx potassium chloride 20 mEq 20 meq PO QAM #90 tab 10/21/20 02/17/21 Rx tablet,extended release prednisone 1 mg tablet 1 mg PO .COMPLEX #120 tab 10/21/20 02/17/21 Rx prednisone 5 mg tablet 10 mg PO DAILY #90 tab 10/21/20 02/17/21 Rx simvastatin 40 mg tablet 40 mg PO QPM #90 tab 10/21/20 02/17/21 Rx venlafaxine 150 mg 150 mg PO QAM #90 cap 10/21/20 02/17/21 Rx capsule,extended release 24 hr venlafaxine 75 mg capsule,extended 75 mg PO QAM #90 cap 10/21/20 02/17/21 Rx release 24 hr folic acid 1 mg tablet 1 mg PO QAM #90 tab 11/18/20 02/17/21 Rx oxycodone-acetaminophen 10 mg-325 1 tab PO Q4H PRN #150 tab 01/17/21 02/17/21 Rx mg tablet bupropion HCl 100 mg PO QAM 02/17/21 02/17/21 History methotrexate sodium 7.5 mg PO UD 02/17/21 02/17/21 History spironolactone 50 mg PO BID 02/17/21 02/17/21 History tamsulosin 0.4 mg PO QAM 02/17/21 02/17/21 History Patient History Medical History Achalasia Degenerative disc disease Esophageal dilatation History of malignant neoplasm of prostate History of nicotine dependence History of non-healing wound PT'S SON REPORTS PT HAD THESE (TO LOWER LEGS) AND HOME NURSING CHECKS BUT HAVE IMPROVED GREATLY History of pneumonia Hx of pancreatitis On home oxygen therapy 3lpm prn Osteoarthritis Paroxysmal atrial fibrillation DX SEP 2019> DID NOT START ELIQUIS PER PATIENTS SON> WEARING HALTER MONITOR CURRENTLY > [facility]> SON REPORTS PT IS VERY NON COMPLIANT WITH MEDS/TREATMENT PLANS Peripheral neuropathy bilateral hands & feet Sleep apnea non-compliant with cpap Solitary pulmonary nodule Surgical History H/O toe surgery History of arthroscopic surgery of shoulder bilateral History of colonoscopy History of cystoscopy with stent History of esophagogastroduodenoscopy (EGD) History of nasal septoplasty History of tonsillectomy Hx of shoulder surgery open left shoulder Family History Other Hypertension Denies family history of Deep vein thrombosis Cancer Social History Smoking Status: Former smoker Tobacco Type: Cigarettes Second Hand Exposure: Yes; Hx Alcohol Use: Yes Alcohol type: beer Hx Substance Use: Yes Substance Use Type Other:: MEDICAL [employer]IJ[employer] AT HS Preferred Language: Jamaican Communication Ability: Effective Visual Impairment: No Limitations Hearing Ability: Normal Produce Assistant Required: No Beliefs That Will Affect Care: None marital status: Single Current Living Situation: Alone Feels Safe at Home: Yes Assistive Devices: Glasses Review of Systems Review of Systems: Unobtainable due to mental health condition Physical Exam Physical Exam: Constitutional: No acute distress HEENT: EOMI, PERRLA, thick neck Respiratory system: Decreased air entry bilaterally, no wheeze, no rhonchi, p ositive crackles bilateral lower lobes CVS: S1-S2 positive, no murmurs or gallops, tachycardia Abdomen: Soft, nontender, nondistended, positive bowel sounds x4 Extremities: +2 pulses bilaterally radialis/ dorsalis pedis, no cyanosis, no edema, cold extremities Neuro: Awake alert oriented to self, moving all the extremities on command Psych: Unable to assess G/U: Positive [place] Skin: no rashes, warm and dry Lymphatic: no cervical or axillary lymphadenopathy Results & Data Results & Data ([facility]) Vital Signs (Past 12 Hours) Vital Signs Temp Pulse Pulse Resp BP Pulse Ox 02/17/21 17:15 116 H 33 H 95 02/17/21 15:46 120 H 30 H 99 02/17/21 15:43 133 H 113/71 02/17/21 15:40 139 H 23 99 02/17/21 15:15 115 H 16 95/80 L 95 02/17/21 15:01 111 H 17 110/88 02/17/21 14:45 116 H 16 149/85 H 100 02/17/21 14:30 112 H 18 123/71 99 02/17/21 14:15 112 H 27 H 104/65 95 02/17/21 14:00 115 H 18 92/70 L 100 02/17/21 13:45 112 H 21 97/66 L 95 02/17/21 13:31 113 H 30 H 105/62 78 L 02/17/21 13:15 113 H 20 92/54 L 98 02/17/21 13:00 119 H 17 116/71 100 02/17/21 12:45 130 H 21 119/74 100 02/17/21 12:37 124 H 126/83 88 L 02/17/21 12:30 136 H 125/81 100 02/17/21 12:28 135 H 31 H 100 02/17/21 12:27 135 H 138/90 100 02/17/21 12:15 126 H 31 H 02/17/21 12:01 145 H 23 76/49 L 02/17/21 11:58 95 02/17/21 11:38 140 H 24 101/66 98 02/17/21 11:23 37.2 C 02/17/21 11:51 02/17/21 11:51 Coding Level of Care Code Critical Care 1st 30-74 mins Diagnoses Acute metabolic encephalopathy G93.41 Anxiety and depression F41.9; F32.9 Paroxysmal atrial fibrillation I48.0 Chronic obstructive pulmonary disease J44.9 Chronic respiratory failure with hypoxia J96.11 Temporal arteritis M31.6 KAYKAY (acute kidney injury) N17.9 Time Spent (min) 67
[2021-02-17 18:55] LABS: Albumin Level 2.5 gm/dl (3.4-5.0); BUN Creatinine Ratio 35.7 (10-20); Calcium 8.2 mg/dl (8.5-10.1); Creatinine Clr Calc Pharmacy 48.5 ml/min; Est GFR (African American) 42.9 ml/min; Potassium 5.2 mmol/L (3.5-5.1)
[2021-02-17] MEDS ORDERED: FAMOTIDINE 20 MG in SYRINGE 3 ML IV SCH (19:00)
[2021-02-17 19:05] LABS: Basophils # (auto) 0.04 K/uL (0-0.2); Basophils % (auto) 0.1 %; Eosinophils # (auto) 0.01 K/uL (0-0.5); Hematocrit (blood only) 30.2 % (42-52); Hemoglobin 9.6 g/dL (14.0-18.0); Immature Granulocytes # (auto) 1.15 K/uL (0.00-0.02); Immature Granulocytes % (auto) 3.8 %; Lymphocytes # (auto) 1.05 K/uL (1.2-3.4); Lymphocytes % (auto) 3.5 %; Mean Corpuscular Hemoglobin 34.2 pg (25-34); Mean Corpuscular Hgb Conc 31.8 g/dL (32-36); Mean Corpuscular Volume 107.5 fL (80-100); Mean Platelet Volume 11.2 fL (7.4-10.4); Monocytes # (auto) 0.62 K/uL (0.11-0.59); Neutrophils # (auto) 27.44 K/uL (1.4-6.5); Neutrophils % (auto) 90.6 %; Platelet Count 296 K/uL (130-400); Polychromasia 1+; RDW Coefficient of Variation 15.2 % (11.5-14.5); RDW Standard Deviation 59.3 fL (36.4-46.3); Red Blood Count 2.81 M/uL (4.7-6.1); White Blood Count 30.31 K/uL (4.8-10.8)
[2021-02-17 19:06] LABS: Albumin Globulin Ratio 0.9 (0.9-2); Globulin 2.9 gm/dl (2.5-4.0); Thyroid Stimulating Hormone 1.39 uIu/ml (0.300-4.500); Total Protein 5.4 gm/dl (6.4-8.2)
[2021-02-17] MEDS ORDERED: NORMOSOL-R 1,000 ML IV SCH (19:30)
[2021-02-17 19:31] LABS: Amphetamines+Metham, Urine Neg (Neg); Barbiturates, Urine Neg (Neg); Benzodiazepine, Urine Neg (Neg); Cocaine, Urine Neg (Neg); MDMA (Ecstacy), Urine Pos (Neg); Methadone, Urine Neg (Neg); Opiate, Urine Pos (Neg); Phencyclidine, Urine Neg (Neg)
[2021-02-17] MEDS: PIPERACILLIN/TAZOBACTAM 3.375 GM in DEXTROSE 5% 100 ML IV SCH (19:35)
[2021-02-17 19:37] LABS: Creatinine Urine Random 41.9 mg/dl; Potassium Random Urine 49.6 mmol/L; Uric Acid Urine Random 25.1 mg/dl
[2021-02-17] MEDS ORDERED: STAT IV Infusion **Titration per Protocol STA (20:42)
[2021-02-17] MEDS ORDERED: NORMOSOL-R 500 ML IV ONE (20:42)
[2021-02-17] MEDS ORDERED: DC ALL PREVIOUSLY ORDERED DIABETES MEDS ONE (20:42)
[2021-02-17] MEDS ORDERED: INSULIN REGULAR 250 UNITS in SODIUM CHLORIDE 0.9% 247.5 ML IV SCH (20:45)
[2021-02-17] MEDS ORDERED: SODIUM BICARB 8.4% INJ 50 MEQ/50 ML SYR IV STA (20:46)
[2021-02-17] MEDS: D5W AND 1/2NSS 1,000 ML IV SCH (20:58)
[2021-02-17] MEDS ORDERED: DEXTROSE 50% 50 ML SYRINGE IV ONE (21:09)
[2021-02-17] MEDS: INSULIN ASPART 100 UNITS/ML 3 ML PEN SC SCH (21:25)
[2021-02-17] MEDS: SIMVASTATIN 40 MG TAB PO SCH (21:38)
[2021-02-17] MEDS: METOPROLOL TARTRATE 25 MG TAB PO SCH (21:38)
[2021-02-17 21:54] LABS: Calcium 7.8 mg/dl (8.5-10.1); Est GFR (African American) 42.3 ml/min; Est GFR (Non-African American) 36.5 ml/min; Potassium 5.1 mmol/L (3.5-5.1)
[2021-02-17] MEDS: methylPREDNISolone 40 MG in SYRINGE 0 ML IV SCH (21:54)
[2021-02-17 22:06] LABS: Phosphorus 1.4 mg/dl (2.5-4.9); Troponin I 0.065 ng/ml (0-0.045)
[2021-02-18] MEDS ORDERED: METOPROLOL TARTRATE 1 MG/ML VIAL IV STA (00:05)
[2021-02-18] MEDS ORDERED: METOPROLOL TARTRATE 1 MG/ML VIAL IV ONE (00:05)
[2021-02-18] MEDS: PIPERACILLIN/TAZOBACTAM 3.375 GM in DEXTROSE 5% 100 ML IV SCH ×2 (01:31→16:24)
[2021-02-18] MEDS: D5W AND 1/2NSS 1,000 ML IV SCH (01:31)
[2021-02-18 01:35] LABS: BUN Creatinine Ratio 37.7 (10-20); Calcium 8.1 mg/dl (8.5-10.1); Creatinine Clr Calc Pharmacy 49.6 ml/min; Est GFR (African American) 44.1 ml/min; Potassium 4.8 mmol/L (3.5-5.1)
[2021-02-18 01:51] LABS: Phosphorus 0.8 mg/dl (2.5-4.9)
[2021-02-18] MEDS ORDERED: SODIUM PHOSPHATE 3 MMOL/1 ML 5 ML VIAL IV ONE (02:27)
[2021-02-18] MEDS ORDERED: PANTOPRAZOLE BOLUS/DRIP 1 EA IV STA (02:41)
[2021-02-18] MEDS ORDERED: PANTOprazole 80 MG in DEXTROSE 5% 100 ML IV ONE (03:00)
[2021-02-18] MEDS ORDERED: SODIUM PHOSPHATE 15 MMOL in SODIUM CHLORIDE 0.9% 250 ML IV ONE (03:00)
[2021-02-18] MEDS: D5W AND 1/2NSS + 20MEQ KCL 20 MEQ/1,000 ML BAG IV SCH ×2 (03:09→10:43)
[2021-02-18] MEDS: PANTOprazole 40 MG in DEXTROSE 5% 100 ML IV SCH ×5 (03:27→23:21)
--- NOTE | 2021-02-18 04:47 | Procedure Note ---
Procedure Note Date of Service February 18, 2021 Note ENDURANCE CATHETER PROCEDURE NOTE: Procedure: Penitentiary Indwelling Peripherally Inserted IV Catheter Placement Attending: Dr. Pulido Provider: ALEXANDR Jones Indication: Need for IV Access, Poor Vascular Access Anesthesia: None A time-out was completed verifying correct patient, procedure, site, positioning, and implant(s) or special equipment if applicable. Utilizing bedside ultrasound, vascularity of the right upper extremity was assessed. Vessel size was noted for appropriate catheter selection and skin was marked with gentle pressure. Patients right upper extremity was prepped and draped in the usual sterile fashion utilizing chlorhexidine. Ultrasound guidance was used to aid needle placement. A 18 g Endurance Catheter was introduced into the right cephalic vein under direct ultrasound guidance. Guide wire was easily deployed without resistance. Catheter was threaded over the guide wire without resistance and the entire apparatus was removed intact. Good venous blood return was noted in the catheter. The IV catheter was easily flushed with sterile saline flush. Sterile clave was attached to the end of the catheter and good blood return was again noted. Tourniquet was released. StatLock device and sterile dressing were applied. The patient tolerated the procedure well. Blood Loss: Minimal Complications: None Procedural Ultrasound Guidance: Procedure Date: 02/18/2021 Indication: Poor Vascular Access Attending: Dr. Pulido Povider: ALEXANDR Jones Artery/Veins Identified: YES Access confirmed in Vein with ultrasound: YES Complications: NONE Patient tolerated procedure: WELL Coding CPT Codes Tubes, Drains, and Vasc Access - Tubes, Drains, and Vasc Access: [id number] Ultrasound Guidance For Vascular ([id number]) [facility] [place] Procedure Codes (Charges) Tubes, Drains, and Vasc Access Procedure 1: Tubes, Drains, and Vasc Access: [id number] Ultrasound Guidance For Vascular
[2021-02-18 05:11] LABS: Hematocrit (blood only) 25.9 % (42-52); Hemoglobin 8.5 g/dL (14.0-18.0); Mean Corpuscular Hemoglobin 33.1 pg (25-34); Mean Corpuscular Hgb Conc 32.8 g/dL (32-36); Mean Corpuscular Volume 100.8 fL (80-100); Mean Platelet Volume 10.1 fL (7.4-10.4); Nucleated RBC # (auto) 0.06 K/uL (0-0); Nucleated RBC % (auto) 0.3 %; Platelet Count 233 K/uL (130-400); RDW Coefficient of Variation 15.4 % (11.5-14.5); RDW Standard Deviation 55.4 fL (36.4-46.3); Red Blood Count 2.57 M/uL (4.7-6.1); White Blood Count 24.91 K/uL (4.8-10.8)
[2021-02-18] MEDS: METOPROLOL TARTRATE 1 MG/ML VIAL IV SCH ×3 (05:19→18:43)
[2021-02-18] MEDS: methylPREDNISolone 40 MG in SYRINGE 0 ML IV SCH ×2 (05:22→18:37)
[2021-02-18 05:26] LABS: BUN Creatinine Ratio 37.2 (10-20); Beta-Hydroxybutyrate 4.57 mg/dl (0.2-2.81); Calcium 7.7 mg/dl (8.5-10.1); Creatinine Clr Calc Pharmacy 49.6 ml/min; Est GFR (African American) 44.1 ml/min; Magnesium 1.8 mg/dl (1.8-2.4); Phosphorus 0.9 mg/dl (2.5-4.9)
[2021-02-18] MEDS ORDERED: MAGNESIUM SULFATE / D5W 1 GM/100 ML BAG IV ONE (05:37)
[2021-02-18 05:46] LABS: Basophils # (auto) 0.01 K/uL (0-0.2); Immature Granulocytes # (auto) 0.36 K/uL (0.00-0.02); Immature Granulocytes % (auto) 1.4 %; Lymphocytes # (auto) 1.32 K/uL (1.2-3.4); Lymphocytes % (auto) 5.3 %; Monocytes # (auto) 0.99 K/uL (0.11-0.59); Neutrophils # (auto) 22.23 K/uL (1.4-6.5); Neutrophils % (auto) 89.3 %; RBC Morphology Unremarkable
--- NOTE | 2021-02-18 06:02 | Electrocardiogram Report ---
Test Reason : Blood Pressure : / mmHG Vent. Rate : 138 BPM Atrial Rate : 136 BPM P-R Int : 000 ms QRS Dur : 090 ms QT Int : 306 ms P-R-T Axes : 000 227 072 degrees QTc Int : 463 ms Probable Sinus tachycardia Right superior axis deviation Abnormal ECG When compared with ECG of 13-SEP-2019 01:43, Questionable change in QRS axis Non-specific change in ST segment in Inferior leads T wave amplitude has increased in Anterior leads Confirmed by Ky Woodall ([id number]) on 02/18/2021 6:02:26 AM Referred By: REFERRED SELF Confirmed By:Ky Woodall
[2021-02-18] MEDS ORDERED: VANCOMYCIN CONSULT ACTIVE PRN (07:30)
[2021-02-18] MEDS ORDERED: POTASSIUM PHOS 3 MMOL/1 ML INFUSION IV STA ×2 (07:37→13:29)
[2021-02-18] MEDS: ALBUT/IPRATROP 3MG/0.5MG NEB 3 ML VIAL NEB SCH ×2 (07:43→11:05)
[2021-02-18] MEDS ORDERED: POTASSIUM PHOSPHATE 15 MMOL in SODIUM CHLORIDE 0.9% 250 ML IV ONE ×2 (08:00→14:30)
[2021-02-18] MEDS: INSULIN ASPART 100 UNITS/ML 3 ML PEN SC SCH ×4 (08:01→20:27)
[2021-02-18] MEDS: buPROPion SR 100 MG TABCR PO SCH (08:02)
[2021-02-18] MEDS: ARIPiprazole 5 MG TAB PO SCH (08:02)
[2021-02-18] MEDS: CHOLECALCIFEROL 400 UNITS 10 MCG TAB PO SCH (08:02)
[2021-02-18] MEDS: METOPROLOL TARTRATE 25 MG TAB PO SCH (08:02)
[2021-02-18] MEDS: CYANOCOBALAMIN 500 MCG TABLET (VITAMIN B-12) PO SCH (08:02)
[2021-02-18] MEDS: TAMSULOSIN HCL 0.4 MG CAP PO SCH (08:02)
[2021-02-18] MEDS: FOLIC ACID 1 MG TAB PO SCH (08:02)
[2021-02-18] MEDS: POTASSIUM CHLORIDE CRTAB 20 MEQ TABCR PO SCH (08:02)
[2021-02-18] MEDS: VENLAFAXINE HCL XR 75 MG CAPXR PO SCH (08:03)
[2021-02-18] MEDS ORDERED: MoRPHine SULFATE 2 MG/ML CARP IV STA (08:33)
[2021-02-18] MEDS: FOLIC ACID 1 MG in SYRINGE 9.8 ML IV SCH (08:36)
[2021-02-18] MEDS ORDERED: VANCOMYCIN HCL 1,750 MG in SODIUM CHLORIDE 0.9% 500 ML IV SCH (09:00)
[2021-02-18 09:25] LABS: INR 1.6 (0.9-1.1); Partial Thromboplastin Time 27.3 Seconds (21.0-31.0)
--- NOTE | 2021-02-18 09:45 | Electroencephalogram ---
EEG Procedure Note Date of Service February 18, 2021 Start / End Times Start Time: 8:35 AM End Time: 8:[address] Pulido History Encephalopathy, blank stare, rule out seizure activity Home Medication List Medication Instructions Recorded Confirmed Type cyanocobalamin (vitamin B-12) 1,000 mcg PO QAM 10/06/19 02/17/21 History apixaban 5 mg tablet 5 mg PO BID #180 tab 10/21/20 02/17/21 Rx aripiprazole 5 mg tablet 5 mg PO QAM #90 tab 10/21/20 02/17/21 Rx cholecalciferol (vitamin D3) 10 800 unit PO QAM #90 tab 10/21/20 02/17/21 Rx mcg (400 unit) tablet furosemide 20 mg tablet 20 mg PO QAM #90 tab 10/21/20 02/17/21 Rx metoprolol tartrate 25 mg tablet 25 mg PO BID #180 tab 10/21/20 02/17/21 Rx potassium chloride 20 mEq 20 meq PO QAM #90 tab 10/21/20 02/17/21 Rx tablet,extended release prednisone 1 mg tablet 1 mg PO .COMPLEX #120 tab 10/21/20 02/17/21 Rx prednisone 5 mg tablet 10 mg PO DAILY #90 tab 10/21/20 02/17/21 Rx simvastatin 40 mg tablet 40 mg PO QPM #90 tab 10/21/20 02/17/21 Rx venlafaxine 150 mg 150 mg PO QAM #90 cap 10/21/20 02/17/21 Rx capsule,extended release 24 hr venlafaxine 75 mg capsule,extended 75 mg PO QAM #90 cap 10/21/20 02/17/21 Rx release 24 hr folic acid 1 mg tablet 1 mg PO QAM #90 tab 11/18/20 02/17/21 Rx oxycodone-acetaminophen 10 mg-325 1 tab PO Q4H PRN #150 tab 01/17/21 02/17/21 Rx mg tablet bupropion HCl 100 mg PO QAM 02/17/21 02/17/21 History methotrexate sodium 7.5 mg PO UD 02/17/21 02/17/21 History spironolactone 50 mg PO BID 02/17/21 02/17/21 History tamsulosin 0.4 mg PO QAM 02/17/21 02/17/21 History Inpatient Medication List Albuterol (Albut/Ipratrop 3mg/0.5mg Neb 3 Ml Vial) 3 ml NEB QIDR [facility] Stop: 03/19/21 16:05 Last Admin: 02/18/21 07:43 Dose: 3 ml Documented by: [id number] Admin: 02/17/21 19:07 Dose: 3 ml Documented by: [id number] Admin: 02/17/21 17:35 Dose: Not Given Documented by: [id number] Aripiprazole (Aripiprazole 5 Mg Tab) 5 mg PO [facility] Stop: 03/20/21 08:59 Last Admin: 02/18/21 08:02 Dose: Not Given Documented by: [id number] Bupropion HCl (Bupropion Sr 100 Mg Tabcr) 100 mg PO [facility] Stop: 03/20/21 08:59 Last Admin: 02/18/21 08:02 Dose: Not Given Documented by: [id number] Cyanocobalamin (Cyanocobalamin 500 Mcg Tablet (Vitamin B-12)) 1,000 mcg PO [facility] Stop: 03/20/21 08:59 Last Admin: 02/18/21 08:02 Dose: Not Given Documented by: [id number] Folic Acid (Folic Acid 1 Mg Tab) 1 mg PO [facility] Stop: 03/20/21 08:59 Last Admin: 02/18/21 08:02 Dose: Not Given Documented by: [id number] Piperacillin Sod/Tazobactam (Sod 3.375 gm/ Dextrose) 115 mls @ 28.75 mls/hr IV Q8H [facility]; Protocol Stop: 02/24/21 17:59 Last Infusion: 02/18/21 08:01 Dose: 0 mls/hr Documented by: [id number] Admin: 02/18/21 01:31 Dose: 28.8 mls/hr Documented by: [id number] Infusion: 02/18/21 00:09 Dose: 0 mls/hr Documented by: [id number] Admin: 02/17/21 19:35 Dose: 28.8 mls/hr Documented by: [id number] Insulin Human Regular 250 (units/ Sodium Chloride) 250 mls @ 1.4 mls/hr IV .Q24H [facility]; Protocol Stop: 03/19/21 20:44 Last Titration: 02/18/21 08:01 Dose: 1.4 units/hr, 1.4 mls/hr Documented by: [id number] Cosigned by: [id number] Titration: 02/18/21 06:59 Dose: 1.4 units/hr, 1.4 mls/hr Documented by: [id number] Cosigned by: [id number] Titration: 02/18/21 04:01 Dose: 1.4 units/hr, 1.4 mls/hr Documented by: [id number] Cosigned by: [id number] Titration: 02/18/21 03:00 Dose: 1.8 units/hr, 1.8 mls/hr Documented by: [id number] Cosigned by: [id number] Titration: 02/18/21 02:03 Dose: 2.3 units/hr, 2.3 mls/hr Documented by: [id number] Cosigned by: [id number] Titration: 02/18/21 01:00 Dose: 2.9 units/hr, 2.9 mls/hr Documented by: [id number] Cosigned by: [id number] Titration: 02/17/21 22:21 Dose: 3.6 units/hr, 3.6 mls/hr Documented by: [id number] Cosigned by: [id number] Admin: 02/17/21 21:14 Dose: 3 units/hr, 3 mls/hr Documented by: [id number] Cosigned by: [id number] Potassium Chloride/Dextrose/Sod Cl (D5w And 1/2nss + 20meq Kcl) 20 meq in 1,000 mls @ 150 mls/hr IV .Q6H40M [facility] Stop: 03/20/21 02:59 Last Admin: 02/18/21 03:09 Dose: 150 mls/hr Documented by: [id number] Pantoprazole Sodium 40 mg/ (Dextrose) 100 mls @ 20 mls/hr IV Q5H [facility] Stop: 03/20/21 03:29 Last Admin: 02/18/21 08:36 Dose: 8 mg/hr, 20 mls/hr Documented by: [id number] Infusion: 02/18/21 08:27 Dose: 8 mg/hr, 20 mls/hr Documented by: [id number] Admin: 02/18/21 03:27 Dose: 8 mg/hr, 20 mls/hr Documented by: [id number] Folic Acid 1 mg/ Syringe 10 mls @ 5 mls/min IV QAM [facility] Stop: 03/20/21 08:59 Last Admin: 02/18/21 08:36 Dose: 5 mls/min Documented by: [id number] Potassium Phosphate 15 mmol/ (Sodium Chloride) 255 mls @ 88 mls/hr IV ONE ONE Stop: 02/18/21 10:53 Last Admin: 02/18/21 08:37 Dose: 88 mls/hr Documented by: [id number] Insulin Aspart (Insulin Aspart 100 Units/Ml 3 Ml Pen) 0 units SC ACHS [facility] Stop: 03/19/21 20:59 Last Admin: 02/18/21 08:01 Dose: Not Given Documented by: [id number] Cosigned by: [id number] Admin: 02/17/21 21:25 Dose: Not Given Documented by: [id number] Cosigned by: [id number] Metoprolol Tartrate (Metoprolol Tartrate 25 Mg Tab) 25 mg PO BID [facility] Stop: 03/19/21 20:59 Last Admin: 02/18/21 08:02 Dose: Not Given Documented by: [id number] Admin: 02/17/21 21:38 Dose: Not Given Documented by: [id number] Metoprolol Tartrate (Metoprolol Tartrate 1 Mg/Ml Vial) 2.5 mg IV Q6 [facility] Stop: 03/20/21 05:59 Last Admin: 02/18/21 05:19 Dose: 2.5 mg Documented by: [id number] Potassium Chloride (Potassium Chloride Crtab 20 Meq Tabcr) 20 meq PO QAM [facility] Stop: 03/20/21 08:59 Last Admin: 02/18/21 08:02 Dose: Not Given Documented by: [id number] Simvastatin (Simvastatin 40 Mg Tab) 40 mg PO QPM [facility] Stop: 03/19/21 20:59 Last Admin: 02/17/21 21:38 Dose: Not Given Documented by: [id number] Spironolactone (Spironolactone 25 Mg Tab) 50 mg PO BID17 [facility] Stop: 03/19/21 16:59 Last Admin: 02/17/21 18:13 Dose: Not Given Documented by: [id number] Tamsulosin HCl (Tamsulosin Hcl 0.4 Mg Cap) 0.4 mg PO QAM [facility] Stop: 03/20/21 08:59 Last Admin: 02/18/21 08:02 Dose: Not Given Documented by: [id number] Venlafaxine HCl (Venlafaxine Hcl Xr 75 Mg Capxr) 225 mg PO [facility] Stop: 03/20/21 08:59 Last Admin: 02/18/21 08:03 Dose: Not Given Documented by: [id number] Vitamin D (Cholecalciferol 400 Units 10 Mcg Tab) [facility] [place] [place] Stop: 03/20/21 08:59 Last Admin: 02/18/21 08:02 Dose: Not Given Documented by: [id number] Discontinued Medications Dextrose (Dextrose 50% 50 Ml Syringe) 25 ml IV NOW ONE Stop: 02/17/21 21:10 Last Admin: 02/17/21 21:14 Dose: 25 ml Documented by: [id number] Furosemide (Furosemide 40 Mg/4 Ml Vial) 40 mg IV NOW STA Stop: 02/17/21 12:02 Last Admin: 02/17/21 13:33 Dose: Not Given Documented by: [id number] Furosemide (Furosemide 40 Mg/4 Ml Vial) Confirm Administered Dose 40 mg IV .STK- MED ONE Stop: 02/17/21 12:02 Last Admin: 02/17/21 13:33 Dose: Not Given Documented by: [id number] Heparin Sodium (Porcine) (Heparin Sod (Porcine) 1000 Unit/Ml) Confirm Administered Dose 1,000 units .ROUTE .STK-MED ONE Stop: 02/17/21 12:05 Last Admin: 02/17/21 13:33 Dose: Not Given Documented by: [id number] Heparin Sodium/Dextrose (Heparin 42349 Unit/500 Ml D5w) Confirm Administered Dose 25,000 units IV .STK-MED ONE Stop: 02/17/21 12:05 Last Admin: 02/17/21 13:33 Dose: Not Given Documented by: [id number] Hydrocortisone Sodium Succinate (Hydrocortisone Sod Succinate 100 Mg/2 Ml Vial) 100 mg IV NOW STA Stop: 02/17/21 12:27 Last Admin: 02/17/21 13:39 Dose: 100 mg Documented by: [id number] Piperacillin Sod/Tazobactam Sod (Zosyn) 4.5 gm in 120 mls @ 240 mls/hr IV NOW ONE Stop: 02/17/21 12:37 Last Infusion: 02/17/21 13:11 Dose: 0 mls/hr Documented by: [id number] Admin: 02/17/21 12:41 Dose: 240 mls/hr Documented by: [id number] Levofloxacin/Dextrose (Levaquin/D5w) 750 mg in 150 mls @ 100 mls/hr IV NOW STA Stop: 02/17/21 13:37 Last Infusion: 02/17/21 14:20 Dose: 0 mls/hr Documented by: [id number] Admin: 02/17/21 12:42 Dose: 100 mls/hr Documented by: [id number] Sodium Chloride (Nss 1000ml) 1,000 mls @ 999 mls/hr IV .Q1H1M ONE Stop: 02/17/21 13:22 Last Infusion: 02/17/21 13:30 Dose: 0 mls/hr Documented by: [id number] Admin: 02/17/21 12:30 Dose: 999 mls/hr Documented by: [id number] Vancomycin HCl 2,500 mg/ (Sodium Chloride) 550 mls @ 200 mls/hr IV NOW ONE Stop: 02/17/21 15:06 Last Infusion: 02/17/21 16:41 Dose: 0 mls/hr Documented by: [id number] Admin: 02/17/21 13:33 Dose: 200 mls/hr Documented by: [id number] Sodium Chloride (Nss 1000ml) 1,000 mls @ 999 mls/hr IV .Q1H1M ONE Stop: 02/17/21 13:28 Last Infusion: 02/17/21 13:30 Dose: 0 mls/hr Documented by: [id number] Admin: 02/17/21 12:30 Dose: 999 mls/hr Documented by: [id number] Sodium Chloride (Nss 1000ml) 500 mls @ 999 mls/hr IV .Q31M ONE Stop: 02/17/21 13:02 Last Infusion: 02/17/21 14:05 Dose: 0 mls/hr Documented by: [id number] Admin: 02/17/21 13:35 Dose: 999 mls/hr Documented by: [id number] Magnesium Sulfate 1 gm/ Sodium (Chloride) 10 mls @ 60 mls/hr IV NOW ONE Stop: 02/17/21 12:54 Last Infusion: 02/17/21 12:50 Dose: 0 mls/hr Documented by: [id number] Admin: 02/17/21 12:45 Dose: 60 mls/hr Documented by: [id number] Sodium Chloride (Nss 1000ml) 1,000 mls @ 100 mls/hr IV .Q10H [facility] Stop: 03/19/21 16:05 Last Admin: 02/17/21 18:17 Dose: Not Given Documented by: [id number] Sodium Chloride (Nss 1000ml) 1,000 mls @ 100 mls/hr IV .Q10H [facility] Stop: 03/19/21 16:05 Last Admin: 02/17/21 18:17 Dose: Not Given Documented by: [id number] Methylprednisolone 40 mg/ (Syringe) 0.64 mls @ 1.5 mls/min IV Q6H [facility] Stop: 03/19/21 17:59 Last Admin: 02/18/21 00:16 Dose: Not Given Documented by: [id number] Methylprednisolone 40 mg/ (Syringe) 0.64 mls @ 1.5 mls/min IV Q8 [facility] Stop: 03/19/21 21:59 Last Admin: 02/18/21 05:22 Dose: 1.5 mls/min Documented by: [id number] Admin: 02/17/21 21:54 Dose: 1.5 mls/min Documented by: [id number] Famotidine 20 mg/ Syringe 5 mls @ 2.5 mls/min IV DAILY [facility] Stop: 03/19/21 18:59 Last Admin: 02/17/21 19:36 Dose: 2.5 mls/min Documented by: [id number] Parenteral Electrolytes (Normosol-R) 1,000 mls @ 125 mls/hr IV .Q8H [facility] Stop: 03/19/21 19:29 Last Infusion: 02/17/21 21:21 Dose: 0 mls/hr Documented by: [id number] Admin: 02/17/21 19:39 Dose: 125 mls/hr Documented by: [id number] Dextrose/Sodium Chloride (D5w And 1/2nss) 1,000 mls @ 200 mls/hr IV .Q5H [facility] Stop: 03/19/21 20:44 Last Infusion: 02/18/21 03:08 Dose: 0 mls/hr Documented by: [id number] Admin: 02/18/21 01:31 Dose: 200 mls/hr Documented by: [id number] Infusion: 02/18/21 01:31 Dose: 200 mls/hr Documented by: [id number] Admin: 02/17/21 20:58 Dose: 200 mls/hr Documented by: [id number] Parenteral Electrolytes (Normosol-R) 500 mls @ 999 mls/hr IV .Q31M ONE Stop: 02/17/21 21:12 Last Infusion: 02/17/21 21:21 Dose: 0 mls/hr Documented by: [id number] Admin: 02/17/21 20:57 Dose: 999 mls/hr Documented by: [id number] Levetiracetam 2,000 mg/ Sodium (Chloride) 270 mls @ 999 mls/hr IV NOW ONE Stop: 02/17/21 21:16 Last Infusion: 02/17/21 21:57 Dose: 0 mls/hr Documented by: [id number] Admin: 02/17/21 21:20 Dose: 999 mls/hr Documented by: [id number] Sodium Phosphate 15 mmol/ (Sodium Chloride) 255 mls @ 102 mls/hr IV 0300 ONE Stop: 02/18/21 05:29 Last Infusion: 02/18/21 06:24 Dose: 0 mls/hr Documented by: [id number] Admin: 02/18/21 03:26 Dose: 102 mls/hr Documented by: [id number] Pantoprazole Sodium 80 mg/ (Dextrose) 120 mls @ 400 mls/hr IV 0300 ONE Stop: 02/18/21 03:17 Last Infusion: 02/18/21 04:36 Dose: 0 mls/hr Documented by: [id number] Admin: 02/18/21 03:27 Dose: 400 mls/hr Documented by: [id number] Magnesium Sulfate/Dextrose (Magnesium Sulfate / D5w) 1 gm in 100 mls @ 50 mls/hr IV ONE ONE Stop: 02/18/21 07:36 Last Infusion: 02/18/21 08:28 Dose: 0 mls/hr Documented by: [id number] Admin: 02/18/21 06:25 Dose: 50 mls/hr Documented by: [id number] Ioversol (Optiray 320 125ml) 120 ml IV ONCE ONE Stop: 02/17/21 12:16 Last Admin: 02/17/21 12:16 Dose: 120 ml Documented by: [id number] Levalbuterol HCl (Levalbuterol Hcl 1.25 Mg/3 Ml Neb) 1.25 mg NEB NOW STA Stop: 02/17/21 11:58 Last Admin: 02/17/21 12:25 Dose: 1.25 mg Documented by: [id number] Levalbuterol HCl (Levalbuterol Hcl 1.25 Mg/3 Ml Neb) 1.25 mg NEB NOW STA Stop: 02/17/21 15:23 Last Admin: 02/17/21 15:46 Dose: 1.25 mg Documented by: [id number] Methylprednisolone (Methylprednisolone 125 Mg/2 Ml Vial) 125 mg IV NOW STA Stop: 02/17/21 11:58 Last Admin: 02/17/21 12:41 Dose: 125 mg Documented by: [id number] Metoprolol Tartrate (Metoprolol Tartrate 1 Mg/Ml Vial) 2.5 mg IV NOW STA Stop: 02/18/21 00:06 Last Admin: 02/18/21 00:12 Dose: 2.5 mg Documented by: [id number] Metoprolol Tartrate (Metoprolol Tartrate 1 Mg/Ml Vial) Confirm Administered Dose 5 mg IV .STK-MED ONE Stop: 02/18/21 00:06 Last Admin: 02/18/21 00:17 Dose: Not Given Documented by: [id number] Miscellaneous (Rapid Sequence Induction Bag) Confirm Administered Dose 1 ea .ROUTE .STK-MED ONE Stop: 02/17/21 11:59 Last Admin: 02/17/21 13:33 Dose: Not Given Documented by: [id number] Miscellaneous Information (Dc All Previously Ordered Diabetes Meds) 1 ea N/A ONE ONE Stop: 02/17/21 20:43 Last Admin: 02/17/21 21:37 Dose: 1 ea Documented by: [id number] Morphine Sulfate (Morphine Sulfate 2 Mg/Ml Carp) 2 mg IV NOW STA Stop: 02/18/21 08:34 Last Admin: 02/18/21 09:18 Dose: 2 mg Documented by: [id number] Sodium Bicarbonate (Sodium Bicarb 8.4% Inj 50 Meq/50 Ml Syr) 50 meq IV NOW STA Stop: 02/17/21 20:47 Last Admin: 02/17/21 21:00 Dose: 50 meq Documented by: [id number] Description This is a 21 electrode EEG with a single channel dedicated to limited EKG. The electrodes were placed in accordance with the International 10-20 system. The background rhythm consists of irregular 4-1/2 to 6 Hz theta slowing. There are intermittent triphasic waves. There is a symmetric frontal beta rhythm. Photic stimulation is unremarkable. Hyperventilation was not performed. There are no epileptiform abnormalities. Interpretation Abnormal awake/drowsy EEG revealing evidence of a moderate to severe encephalopathy. No evidence of epileptiform abnormalities or seizure activity. [facility] EEG Procedure Codes Indication for Procedure (1) Acute metabolic encephalopathy: Neurology Neurology: [id number] EEG include record awake & drowsy
[2021-02-18 09:48] LABS: BUN Creatinine Ratio 35.4 (10-20); C Reactive Protein 1.6 mg/dl (0-0.29); Creatinine Clr Calc Pharmacy 47.5 ml/min; Est GFR (African American) 41.7 ml/min; Magnesium 2.1 mg/dl (1.8-2.4); Phosphorus 1.2 mg/dl (2.5-4.9); Potassium 3.7 mmol/L (3.5-5.1)
[2021-02-18 09:52] LABS: Acetaminophen 4 ug/ml (10-30); Salicylate < 1.7 mg/dl (2.8-20)
[2021-02-18] MEDS ORDERED: NORMOSOL-R 1,000 ML IV ONE ×2 (10:09→14:30)
[2021-02-18] MEDS ORDERED: DC ALL ANTICOAGULANTS ONE (10:11)
--- NOTE | 2021-02-18 10:25 | Critical Care Progress Note ---
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 Wednesday and prednisone on a daily basis, hypertension, depression, Paroxysmal A. fib on apixaban, COPD on 3 L nasal cannula was admitted to the hospital as he was found to be on his lawn. initial blood pressure was 80/60 w ith a pulse of 150 Initial lactate was 14. Patient was given 2.5 lactate went down to 4.8. CT chest 02/17/2021 personally reviewed: Increased interstitial thickening appreciated bilaterally more in the apical lobe peripherally. No clear infiltrate identified Old granulomatous No mediastinal adenopathy EKG 02/17/2021: No acute events undefined, right axis deviation, QTC 463 Patient has seen the patient in the ED 1 which is chronic and was also appreciated in August ABG 02/17/2021: 7.32/33/160 on 50% --Metabolic encephalopathy Etiology is unclear right now CT head 02/17/2021 negative, patient moving all extremities on command TSH within normal limit, calcium within normal limit Aspiration precautions UDS positive for opiates, ecstasy(likely from venlafaxine) as well as marijuana(patient smokes marijuana) Continue with empiric antibiotics Follow-up septic work-up ESR less than 1, CRP 1.26 ? seziure with a blank stare. Got a dose of Keppra 02/17/2021. EEG negative for seizures --Acute blood loss anemia Patient is on apixaban at home Last dose was 02/17/21 Source is likely GI with melanotic stools Patient also has small retroperitoneal bleed on the left side Continue with Protonix drip Monitor H&H, GI has been consulted Type and screen Random cortisol 66.5 COVID-19 PCR negative Procalcitonin negative -- HAGMA with lactic acidosis Delta-delta: Greater than 2 Likely sec to metabolic acidosis plus alkalosis Metabolic acidosis likely from lactic acidosis Patient having melanotic stool could be the reason for alkalosis Positive urinary gap Monitor Serum osmolality 338, calculated osmolality 324, osmolar gap 14 which is very minimally elevated. Salicylate and acetaminophen level negative Patient also had elevated beta hydroxybutyrate which could be from starvation Patient got 2 Amps bicarb so far. Repeat CT abdomen pelvis 02/18/2021 did not show any signs of bowel ischemia, there was small retroperitoneal bleed/edema left lower quadrant. Not significant enough to give the lactic acidosis -- KAYKAY Likely secondary to dehydration, prerenal component Fe Na: 0.94%, prerenal Monitor BUN/creatinine Avoid nephrotoxic medications Strict ins and outs --COPD Unclear if this is an exacerbation We will continue with steroids for the time being and gradually taper it off --Elevated troponin Likely type II OH Trend troponins --A. fib Continue with IV metoprolol --History of temporal arthritis Biopsy-proven On methotrexate 15 mg q. Wednesday as well as prednisone Follow methotrexate level --Anxiety with depression On bupropion, venlafaxine and aripiprazole as an outpatient On hold currently --History of hypertension Hold spironolactone --BPH Continue with tamsulosin --Hypernatremia with hyperchloremia Likely from IV fluids Continue to monitor --Prophylaxis VTE: IPC's. Apixaban on hold GI: Protonix drip Lines: Peripheral Diet: N.p.o. Plan: In/out: +4.8 L, urine output 1130 Continue with antibiotics covering for meningitis as well as intra-abdominal tony rce Repeat CT abdomen pelvis 02/18/2021 did not show any signs of bowel ischemia, there was small retroperitoneal bleed/edema left lower quadrant. Not significant enough to give the lactic acidosis For the melena as well as a retroperitoneal bleed I will give the patient Kcentra. Type and screen. Transfuse if the hemoglobin goes less than 7. Possibility of meningitis still there. We will consider LP I do not think this is methotrexate toxicity, methotrexate level has been ordered Hypophosphatemia and hypomagnesemia being replaced Because of the worsening mental status there is a possibility that I might have to intubate him to protect the airway. Patient's son Jacky [phone], was called and updated regarding patient's condition. I have personally spent 48 minutes of critical care time in the direct management of this patient. This is a life/limb threatening event. This includes time spent evaluating patient, direct bedside care, chart review, placing orders, interpretation of diagnostic studies, discussion with consultants, patient, and family members, as well as other required patient management activities. This time is exclusive of all separately billable procedures, and teaching time and separate from and in addition to any other critical care service time. Please note the above document was generated using voice recognition software. It may contain grammatical, syntax or spelling errors. (2) Anxiety and depression: (3) Paroxysmal atrial fibrillation: (4) Chronic obstructive pulmonary disease: (5) Chronic respiratory failure with hypoxia: (6) Temporal arteritis: (7) KAYKAY (acute kidney injury): Admission and Anticipated Discharge Date Admission Date: February 17, 2021 Subjective Patient seen and examined at bedside. No acute distress. Patient did have multiple melanotic stools overnight. His hemoglobin is trending down. Patient is less oriented compared to yesterday. Has been afebrile. Patient currently on insulin drip with D5 half NS Review of Systems Review of Systems: Unobtainable due to mental health condition Physical Exam Physical Exam: Constitutional: No acute distress HEENT: EOMI, PERRLA, thick neck Respiratory system: Decreased air entry bilaterally, no wheeze, no rhonchi, positive crackles bilateral lower lobes CVS: S1-S2 positive, no murmurs or gallops, tachycardia Abdomen: Soft, positive epigastric and left lower quadrant tenderness, no rebound, decreased bowel sounds Extremities: +2 pulses bilaterally radialis/ dorsalis pedis, no cyanosis, no edema Neuro: GCS 12, moves extremities to pain, positive corneal, positive pupillary Psych: Unable to assess G/U: Positive Mendiola Skin: no rashes, warm and dry Lymphatic: no cervical or axillary lymphadenopathy Results & Data Results & Data ([facility]) Vital Signs (Past 12 Hours) Vital Signs Temp Pulse Resp BP Pulse Ox 02/18/21 06:15 123 H 20 107/79 98 02/18/21 05:19 124 H 131/76 02/18/21 05:15 126 H 22 166/127 H 100 02/18/21 04:22 37.1 C 120 H 20 134/86 99 02/18/21 03:38 120 H 28 H 99 02/18/21 03:24 120 H 22 152/101 H 97 02/18/21 02:14 121 H 18 168/90 H 100 02/18/21 01:44 117 H 19 138/84 99 02/18/21 01:14 122 H 23 143/76 H 98 02/18/21 00:14 36.8 C 116 H 22 147/72 H 100 02/18/21 00:12 128 H 129/70 02/17/21 23:48 127 H 02/17/21 23:14 123 H 25 H 137/64 97 02/17/21 22:45 130 H 30 H 100 02/17/21 22:44 109 H 24 151/73 H 100 02/18/21 04:37 02/18/21 09:03 Coding Level of Care Code Critical Care 1st 30-74 mins Diagnoses Acute metabolic encephalopathy G93.41 Anxiety and depression F41.9; F32.9 Paroxysmal atrial fibrillation I48.0 Chronic obstructive pulmonary disease J44.9 Chronic respiratory failure with hypoxia J96.11 Temporal arteritis M31.6 KAYKAY (acute kidney injury) N17.9 Time Spent (min) 48
--- NOTE | 2021-02-18 10:26 | CT Scan Report ---
ABDOMEN AND PELVIS CT WITHOUT CONTRAST CT DOSE: 1077.42 mGycm HISTORY: Generalized abdominal pain. r/o ischemia TECHNIQUE: Multiaxial CT images of the abdomen and pelvis were performed without contrast. A dose lo wering technique was utilized adhering to the principles of ALARA. COMPARISON STUDY: Abdomen and pelvis CT 02/17/2021. FINDINGS: Mild chronic interstitial thickening and a few bibasilar linear densities are again noted. Suboptimal evaluation of the abdomen and pelvis due to the motion artifact. No pneumoperitoneum. No p neumatosis. No fractures within the visualized osseous structures. The unenhanced probable punctate r ight renal calculi. Gallbladder, spleen, adrenal glands, and pancreas are unremarkable. No retroperit robertson lymphadenopathy. Calcified plaque within the normal caliber abdominal aorta. There is a [address] one within the lower pole the left kidney. Redemonstration of the 1.9 cm hypodense lesion within the right kidney. This may demonstrate enhancement when compared to the prior study and therefore could r epresent a renal mass. No hydronephrosis. No ureteral stones. The bladder is decompressed by a Mendiola catheter. Mild fat stranding anterior to the bladder. Tiny fat-containing left inguinal hernia. Subop timal evaluation for bowel pathology due to the lack of intravenous and oral contrast. However, there is no definite bowel wall thickening or obstruction. Colonic diverticulosis. No evidence for acute d iverticulitis. Normal appendix. There is trace edema versus retroperitoneal hemorrhage anterior to th e iliopsoas muscle within the left pelvis. This is best seen on image 305. This measures 3.1 x 1.3 cm . This is new from the prior study. Multiple brachytherapy seeds again noted within the prostate glan d. Stable hepatic calcifications are noted. IMPRESSION: 1. There is trace focal edema versus retroperitoneal hemorrhage anterior to the iliopsoas muscle with in the left pelvis. This measures 3.1 x 1.3 cm and is new from the prior study. 2. Bilateral nephrolithiasis. No ureteral stones. No hydronephrosis. 3. The 1.9 cm hypodense lesion within the right kidney may demonstrate enhancement when compared to t he prior study. Therefore, a renal mass is the diagnosis of exclusion. Follow-up nonemergent dedicate d renal MRI can be used for further evaluation. 4. The bladder is decompressed by Mendiola catheter. There is mild edema/fat stranding anteriorly. This is nonspecific but could be due to a mild cystitis. ACT 112: Positive. There are findings on this exam that require communication between the performing entity and the patient following Patient Test Result Information Act ([place] Act 112) guidelines. Electronically signed by: Óscar Justice M.D. 02/18/2021 10:24 AM
[2021-02-18] MEDS ORDERED: SODIUM BICARB 8.4% INJ 50 MEQ/50 ML SYR IV STA (10:42)
[2021-02-18] MEDS ORDERED: PROTHROMBIN COMP CONC- KCENTRA 2,000 UNITS in SYRINGE 0 ML IV SCH (10:45)
[2021-02-18 11:02] LABS: Hematocrit (blood only) 24.3 % (42-52); Hemoglobin 8.3 g/dL (14.0-18.0)
[2021-02-18] MEDS ORDERED: ALBUT/IPRATROP 3MG/0.5MG NEB 3 ML VIAL NEB PRN (11:02)
--- NOTE | 2021-02-18 11:08 | XCELERA ---
[id number] \\[id number]\PDF_[id number]
[2021-02-18 11:15] LABS: Fibrinogen 299 mg/dl (184-400)
[2021-02-18] MEDS: cefTRIAXone SODIUM 2,000 MG in DEXTROSE 5% 50 ML IV SCH ×2 (11:16→22:15)
[2021-02-18] MEDS: AMPICILLIN 2,000 MG in SODIUM CHLOR 0.9% AD-VAN 100 ML IV SCH ×3 (11:20→23:11)
--- NOTE | 2021-02-18 11:21 | Gastrointestinal Consultation ---
Date of Consultation February 18, 2021 Assessment & Plan (1) Acute metabolic encephalopathy: (2) Acute respiratory failure with hypoxia: (3) Heme positive stool: Patient is a 75 y.o. male admitted with acute mental status changes, suspected sepsis and hypoxia with acute blood loss anemia and heme positive stool. CT imaging suggestive of a 3.1 x 1.3 cm collection anterior to the iliopsoas muscle. 1. Suspect drop in H&H more likely related to hemorrhage seen on CT rather than GI blood loss. 2. Agree with holding Eliquis at this time. 3. plan for EGD today to further evaluate 4. Continue PPI ggt at 8 mg/hr. 5. Await gan cultures and LP as ordered. 6. Rest per primary team. Thank you for allowing us to participate in the care of this pleasant. If you have any questions or concerns, please do not hesitate to contact us. Supervising Physician Co-Signing Physician Notes I personally evaluated the patient and agree with the findings as documented by ALEXANDR Barrett Exam: abd: soft, nt, nd Proceed with EGD. risks/benefits and procedure discussed with patient, who agrees to proceed History of Present Illness Reason for Consultation: Melena Requesting Physician: Dr. Johnson Attending Physician: Babak Do DO History of Present Illness Patient is a 75 y.o. male with a history of COPD, HTN, temporal arteritis on chronic corticosteroids, pancreatitis and paroxysmal Afib on Eliquis admitted after being found in his yard by a neighbor. He was admitted to the ICU with acute mental status change, hypoxia and suspected sepsis. WBC count yesterday was noted to be 30.31 but trending down to 24.91 today with broad spectrum IV antibiotics. He had been on BIPAP but is now saturating at 98% with 4L via oxymask. He has an elevated lactate level of 7.4 but was as high as [address] imaging was unremarkable. Repeat CT imaging performed this morning with findings of "trace focal edema versus retroperitoneal hemorrhage anterior to the iliopsoas muscle within the left pelvis. This measures 3.1 x 1.3 cm and is new from the prior study." H&H has trended down from 11.9 to 8.3 since admission and was noted to be heme positive. GI has been consulted in this regard. Patient remains obtunded and is unable to provide any history. Review of records, he did undergo an EUS in October of [address] Hayward and EGD [place] [address] Segura. Allergies Allergy/AdvReac Type Severity Reaction Status Date / Time No Known Allergies Allergy Unknown Verified 02/17/21 14:01 Home Medications Medication Instructions Recorded Confirmed Type cyanocobalamin (vitamin B-12) 1,000 mcg PO QAM 10/06/19 02/17/21 History apixaban 5 mg tablet 5 mg PO BID #180 tab 10/21/20 02/17/21 Rx aripiprazole 5 mg tablet 5 mg PO QAM #90 tab 10/21/20 02/17/21 Rx cholecalciferol (vitamin D3) 10 800 unit PO QAM #90 tab 10/21/20 02/17/21 Rx mcg (400 unit) tablet furosemide 20 mg tablet 20 mg PO QAM #90 tab 10/21/20 02/17/21 Rx metoprolol tartrate 25 mg tablet 25 mg PO BID #180 tab 10/21/20 02/17/21 Rx potassium chloride 20 mEq 20 meq PO QAM #90 tab 10/21/20 02/17/21 Rx tablet,extended release prednisone 1 mg tablet 1 mg PO .COMPLEX #120 tab 10/21/20 02/17/21 Rx prednisone 5 mg tablet 10 mg PO DAILY #90 tab 10/21/20 02/17/21 Rx simvastatin 40 mg tablet 40 mg PO QPM #90 tab 10/21/20 02/17/21 Rx venlafaxine 150 mg 150 mg PO QAM #90 cap 10/21/20 02/17/21 Rx capsule,extended release 24 hr venlafaxine 75 mg capsule,extended 75 mg PO QAM #90 cap 10/21/20 02/17/21 Rx release 24 hr folic acid 1 mg tablet 1 mg PO QAM #90 tab 11/18/20 02/17/21 Rx oxycodone-acetaminophen 10 mg-325 1 tab PO Q4H PRN #150 tab 01/17/21 02/17/21 Rx mg tablet bupropion HCl 100 mg PO QAM 02/17/21 02/17/21 History methotrexate sodium 7.5 mg PO UD 02/17/21 02/17/21 History spironolactone 50 mg PO BID 02/17/21 02/17/21 History tamsulosin 0.4 mg PO QAM 02/17/21 02/17/21 History Patient History Medical History Achalasia Degenerative disc disease Esophageal dilatation History of malignant neoplasm of prostate History of nicotine dependence History of non-healing wound PT'S SON REPORTS PT HAD THESE (TO LOWER LEGS) AND HOME NURSING CHECKS BUT HAVE IMPROVED GREATLY History of pneumonia Hx of pancreatitis On home oxygen therapy 3lpm prn Osteoarthritis Paroxysmal atrial fibrillation DX SEP 2019> DID NOT START ELIQUIS PER PATIENTS SON> WEARING HALTER MONITOR CURRENTLY > [facility]> SON REPORTS PT IS VERY NON COMPLIANT WITH MEDS/TREATMENT PLANS Peripheral neuropathy bilateral hands & feet Sleep apnea non-compliant with cpap Solitary pulmonary nodule Surgical History H/O toe surgery History of arthroscopic surgery of shoulder bilateral History of colonoscopy History of cystoscopy with stent History of esophagogastroduodenoscopy (EGD) History of nasal septoplasty History of tonsillectomy Hx of shoulder surgery open left shoulder Family History Other Hypertension Denies family history of Deep vein thrombosis Cancer Social History Smoking Status: Unknown if ever smoked Tobacco Type: Cigarettes Second Hand Exposure: Yes; Preferred Language: Wallisian Communication Ability: Unable Visual Impairment: No Limitations Hearing Ability: Normal Db2 Dba Required: No Beliefs That Will Affect Care: None marital status: Single Current Living Situation: Alone Feels Safe at Home: Yes Assistive Devices: Glasses Review of Systems Review of Systems: Unobtainable due to reduced consciousness Physical Exam Constitutional: + acute distress and + morbidly obese Respiratory: + respiratory distress Auscultation: + diminished lung sounds (bases) Cardiovascular: Rate/Rhythm: regular rhythm and + tachycardic Gastrointestinal (Abdomen): Inspection/Auscultation: normal bowel sounds Percussion/Palpation: abdomen soft Neurologic: + obtunded Results & Data ([facility]) Vital Signs (Past 12 Hours) Vital Signs Temp Pulse Pulse Resp BP Pulse Ox 02/18/21 10:34 118 H 20 104/58 L 98 02/18/21 10:30 110 H 20 99 02/18/21 10:15 126 H 30 H 98 02/18/21 10:03 133 H 24 124/68 100 02/18/21 09:30 121 H 17 99 02/18/21 09:16 124 H 21 99 02/18/21 09:14 126 H 22 169/74 H 99 02/18/21 09:00 118 H 24 02/18/21 08:45 134 H 27 H 176/111 H 02/18/21 08:30 125 H 23 02/18/21 08:16 129 H 25 H 02/18/21 08:15 127 H 20 172/100 H 02/18/21 08:00 114 H 18 02/18/21 07:52 117 H 22 142/71 H 99 02/18/21 07:46 121 H 27 H 98 02/18/21 07:44 122 H 27 H 187/110 H 98 02/18/21 07:43 116 H 22 98 02/18/21 07:30 121 H 23 99 02/18/21 07:15 36.7 C 8 L 197/114 H 99 02/18/21 07:00 117 H 23 99 02/18/21 06:46 117 H 22 100 02/18/21 06:44 116 H 21 132/83 100 02/18/21 06:15 123 H 20 107/79 98 02/18/21 05:19 124 H 131/76 02/18/21 05:15 126 H 22 166/127 H 100 02/18/21 04:22 37.1 C 120 H 20 134/86 99 02/18/21 03:38 120 H 28 H 99 02/18/21 03:24 120 H 22 152/101 H 97 02/18/21 02:14 121 H 18 168/90 H 100 02/18/21 01:44 117 H 19 138/84 99 02/18/21 01:14 122 H 23 143/76 H 98 02/18/21 00:14 36.8 C 116 H 22 147/72 H 100 02/18/21 00:12 128 H 129/70 02/17/21 23:48 127 H Laboratory Results Abnormal lab results 02/17/21 02/17/21 02/17/21 Range/Units 11:51 11:51 12:26 WBC 27.22 H (4.8-10.8) K/uL RBC 3.48 L (4.7-6.1) M/uL Hgb 11.9 L (14.0-18.0) g/dL POC Hgb (14.0-18.0) g/dl Hct 36.7 L (42-52) % POC Hct (42-52) % MCV 105.5 H (80-100) fL MCH 34.2 H (25-34) pg MCHC (32-36) g/dL RDW Std Deviation 57.2 H (36.4-46.3) fL RDW Coeff of Melba 14.9 H (11.5-14.5) % MPV 10.8 H (7.4-10.4) fL Neut # (Auto) 23.35 H (1.4-6.5) K/uL Lymph # (Auto) (1.2-3.4) K/uL [place] # (Auto) 1.24 H (0.11-0.59) K/uL Immature Gran # (Auto) 0.87 H (0.00-0.02) K/uL Absolute Nucleated RBC 0.05 H (0-0) K/uL PT (9.0-12.0) Seconds INR (0.9-1.1) POC pH (7.35-7.45) POC pCO2 (35-46) mmHg POC pO2 (80-95) mmHg POC HCO3 (19-24) mary/L POC Total CO2 (24-31) mmol/L POC Base Excess (-9-1.8) mary/L ABG pH (7.35-7.45) ABG pH (Temp Correct) (7.35-7.45) ABG pCO2 (35-46) mmHg ABG pCO2 (Temp Corrct (35-46) mmHg ABG pO2 (80-95) mmHg ABG HCO3 (19-24) mmol/L POC ABG O2 Sat (90-95) % ABG O2 Saturation (90-95) % VBG pH (7.36-7.41) Sodium (136-145) mmol/L Potassium (3.5-5.1) mmol/L Chloride (98-107) mmol/L Carbon Dioxide 20 L (21-32) mmol/L Anion Gap 18.0 H (3-11) BUN 63 H (7-18) mg/dl Creatinine 1.81 H (0.6-1.4) mg/dl BUN/Creatinine Ratio 34.7 H (10-20) Glucose 244 H (70-99) mg/dl POC Glucose (70-99) mg/dl Osmolality (280-300) mOsm/kg Lactate (0.4-2.0) mmol/L Calcium (8.5-10.1) mg/dl Phosphorus (2.5-4.9) mg/dl Total Bilirubin 1.1 H (0.2-1) mg/dl AST 13 L (15-37) U/L Troponin I (0-0.045) ng/ml C-Reactive Protein (0-0.29) mg/dl Total Protein (6.4-8.2) gm/dl Albumin 3.1 L (3.4-5.0) gm/dl Triglycerides (0-150) mg/dl Amylase 234 H (25-115) U/L Lipase 28 L (73-393) U/L Beta-Hydroxybutyric Acd (0.2-2.81) mg/dl Ur Specific [place] (1.000-1.030) Urine Protein (Negative) Urine Glucose (UA) (Negative) Urine Ketones (Negative) Urine Blood (Negative) Urine WBC (Auto) (0-5) /hpf Urine RBC (Auto) (0-4) /hpf U Epithel Cells (Auto) (0-5) /lpf Stool Occult Bld Scrn (Negative) Salicylates (2.8-20) mg/dl Urine Opiates Screen (Neg) Acetaminophen (10-30) ug/ml MDMA (Ecstasy) Screen (Neg) U Marijuana (THC) Screen (Neg) 02/17/21 02/17/21 02/17/21 Range/Units 12:32 12:32 13:20 WBC (4.8-10.8) K/uL RBC (4.7-6.1) M/uL Hgb (14.0-18.0) g/dL POC Hgb (14.0-18.0) g/dl Hct (42-52) % POC Hct (42-52) % MCV (80-100) fL MCH (25-34) pg MCHC (32-36) g/dL RDW Std Deviation (36.4-46.3) fL RDW Coeff of Melba (11.5-14.5) % MPV (7.4-10.4) fL Neut # (Auto) (1.4-6.5) K/uL Lymph # (Auto) (1.2-3.4) K/uL [place] # (Auto) (0.11-0.59) K/uL Immature Gran # (Auto) (0.00-0.02) K/uL Absolute Nucleated RBC (0-0) K/uL PT 14.4 H (9.0-12.0) Seconds INR 1.5 H (0.9-1.1) POC pH (7.35-7.45) POC pCO2 (35-46) mmHg POC pO2 (80-95) mmHg POC HCO3 (19-24) mary/L POC Total CO2 (24-31) mmol/L POC Base Excess (-9-1.8) mary/L ABG pH (7.35-7.45) ABG pH (Temp Correct) (7.35-7.45) ABG pCO2 (35-46) mmHg ABG pCO2 (Temp Corrct (35-46) mmHg ABG pO2 (80-95) mmHg ABG HCO3 (19-24) mmol/L POC ABG O2 Sat (90-95) % ABG O2 Saturation (90-95) % VBG pH (7.36-7.41) Sodium (136-145) mmol/L Potassium (3.5-5.1) mmol/L Chloride (98-107) mmol/L Carbon Dioxide (21-32) mmol/L Anion Gap (3-11) BUN (7-18) mg/dl Creatinine (0.6-1.4) mg/dl BUN/Creatinine Ratio (10-20) Glucose (70-99) mg/dl POC Glucose (70-99) mg/dl Osmolality (280-300) mOsm/kg Lactate 14.6 H* (0.4-2.0) mmol/L Calcium (8.5-10.1) mg/dl Phosphorus (2.5-4.9) mg/dl Total Bilirubin (0.2-1) mg/dl AST (15-37) U/L Troponin I (0-0.045) ng/ml C-Reactive Protein (0-0.29) mg/dl Total Protein (6.4-8.2) gm/dl Albumin (3.4-5.0) gm/dl Triglycerides (0-150) mg/dl Amylase (25-115) U/L Lipase (73-393) U/L Beta-Hydroxybutyric Acd (0.2-2.81) mg/dl Ur Specific [place] > 1.045 H (1.000-1.030) Urine Protein Trace H (Negative) Urine Glucose (UA) Trace H (Negative) Urine Ketones 1+ H (Negative) Urine Blood 2+ H (Negative) Urine WBC (Auto) 5-10 H (0-5) /hpf Urine RBC (Auto) 10-30 H (0-4) /hpf U Epithel Cells (Auto) 10-20 H (0-5) /lpf Stool Occult Bld Scrn (Negative) Salicylates (2.8-20) mg/dl Urine Opiates Screen (Neg) Acetaminophen (10-30) ug/ml MDMA (Ecstasy) Screen (Neg) U Marijuana (THC) Screen (Neg) 02/17/21 02/17/21 02/17/21 Range/Units 13:38 15:00 15:45 WBC (4.8-10.8) K/uL RBC (4.7-6.1) M/uL Hgb (14.0-18.0) g/dL POC Hgb (14.0-18.0) g/dl Hct (42-52) % POC Hct (42-52) % MCV (80-100) fL MCH (25-34) pg MCHC (32-36) g/dL RDW Std Deviation (36.4-46.3) fL RDW Coeff of Melba (11.5-14.5) % MPV (7.4-10.4) fL Neut # (Auto) (1.4-6.5) K/uL Lymph # (Auto) (1.2-3.4) K/uL [place] # (Auto) (0.11-0.59) K/uL Immature Gran # (Auto) (0.00-0.02) K/uL Absolute Nucleated RBC (0-0) K/uL PT (9.0-12.0) Seconds INR (0.9-1.1) POC pH (7.35-7.45) POC pCO2 (35-46) mmHg POC pO2 (80-95) mmHg POC HCO3 (19-24) mary/L POC Total CO2 (24-31) mmol/L POC Base Excess (-9-1.8) mary/L ABG pH 7.32 L (7.35-7.45) ABG pH (Temp Correct) (7.35-7.45) ABG pCO2 33 L (35-46) mmHg ABG pCO2 (Temp Corrct (35-46) mmHg ABG pO2 160 H (80-95) mmHg ABG HCO3 17 L (19-24) mmol/L POC ABG O2 Sat (90-95) % ABG O2 Saturation 99.2 H (90-95) % VBG pH (7.36-7.41) Sodium (136-145) mmol/L Potassium (3.5-5.1) mmol/L Chloride (98-107) mmol/L Carbon Dioxide (21-32) mmol/L Anion Gap (3-11) BUN (7-18) mg/dl Creatinine (0.6-1.4) mg/dl BUN/Creatinine Ratio (10-20) Glucose (70-99) mg/dl POC Glucose 128 H (70-99) mg/dl Osmolality (280-300) mOsm/kg Lactate 4.8 H* (0.4-2.0) mmol/L Calcium (8.5-10.1) mg/dl Phosphorus (2.5-4.9) mg/dl Total Bilirubin (0.2-1) mg/dl AST (15-37) U/L Troponin I (0-0.045) ng/ml C-Reactive Protein (0-0.29) mg/dl Total Protein (6.4-8.2) gm/dl Albumin (3.4-5.0) gm/dl Triglycerides (0-150) mg/dl Amylase (25-115) U/L Lipase (73-393) U/L Beta-Hydroxybutyric Acd (0.2-2.81) mg/dl Ur Specific [place] (1.000-1.030) Urine Protein (Negative) Urine Glucose (UA) (Negative) Urine Ketones (Negative) Urine Blood (Negative) Urine WBC (Auto) (0-5) /hpf Urine RBC (Auto) (0-4) /hpf U Epithel Cells (Auto) (0-5) /lpf Stool Occult Bld Scrn (Negative) Salicylates (2.8-20) mg/dl Urine Opiates Screen (Neg) Acetaminophen (10-30) ug/ml MDMA (Ecstasy) Screen (Neg) U Marijuana (THC) Screen (Neg) 02/17/21 02/17/21 02/17/21 Range/Units 16:24 16:28 17:26 WBC 30.31 H* (4.8-10.8) K/uL RBC 2.81 L (4.7-6.1) M/uL Hgb 9.6 L (14.0-18.0) g/dL POC Hgb 8.8 L (14.0-18.0) g/dl Hct 30.2 L (42-52) % POC Hct 26 L (42-52) % MCV 107.5 H (80-100) fL MCH 34.2 H (25-34) pg MCHC 31.8 L (32-36) g/dL RDW Std Deviation 59.3 H (36.4-46.3) fL RDW Coeff of Melba 15.2 H (11.5-14.5) % MPV 11.2 H (7.4-10.4) fL Neut # (Auto) 27.44 H (1.4-6.5) K/uL Lymph # (Auto) 1.05 L (1.2-3.4) K/uL [place] # (Auto) 0.62 H (0.11-0.59) K/uL Immature Gran # (Auto) 1.15 H (0.00-0.02) K/uL Absolute Nucleated RBC (0-0) K/uL PT (9.0-12.0) Seconds INR (0.9-1.1) POC pH 7.31 L (7.35-7.45) POC pCO2 27 L (35-46) mmHg POC pO2 215 H (80-95) mmHg POC HCO3 14 L (19-24) mary/L POC Total CO2 14 L (24-31) mmol/L POC Base Excess -13.0 L (-9-1.8) mary/L ABG pH (7.35-7.45) ABG pH (Temp Correct) 7.309 L (7.35-7.45) ABG pCO2 (35-46) mmHg ABG pCO2 (Temp Corrct 27 L (35-46) mmHg ABG pO2 (80-95) mmHg ABG HCO3 (19-24) mmol/L POC ABG O2 Sat 100.0 H (90-95) % ABG O2 Saturation (90-95) % VBG pH (7.36-7.41) Sodium (136-145) mmol/L Potassium (3.5-5.1) mmol/L Chloride (98-107) mmol/L Carbon Dioxide (21-32) mmol/L Anion Gap (3-11) BUN (7-18) mg/dl Creatinine (0.6-1.4) mg/dl BUN/Creatinine Ratio (10-20) Glucose (70-99) mg/dl POC Glucose (70-99) mg/dl Osmolality (280-300) mOsm/kg Lactate (0.4-2.0) mmol/L Calcium (8.5-10.1) mg/dl Phosphorus (2.5-4.9) mg/dl Total Bilirubin (0.2-1) mg/dl AST (15-37) U/L Troponin I 0.053 H* (0-0.045) ng/ml C-Reactive Protein (0-0.29) mg/dl Total Protein (6.4-8.2) gm/dl Albumin (3.4-5.0) gm/dl Triglycerides (0-150) mg/dl Amylase (25-115) U/L Lipase (73-393) U/L Beta-Hydroxybutyric Acd (0.2-2.81) mg/dl Ur Specific [place] (1.000-1.030) Urine Protein (Negative) Urine Glucose (UA) (Negative) Urine Ketones (Negative) Urine Blood (Negative) Urine WBC (Auto) (0-5) /hpf Urine RBC (Auto) (0-4) /hpf U Epithel Cells (Auto) (0-5) /lpf Stool Occult Bld Scrn (Negative) Salicylates (2.8-20) mg/dl Urine Opiates Screen (Neg) Acetaminophen (10-30) ug/ml MDMA (Ecstasy) Screen (Neg) U Marijuana (THC) Screen (Neg) 02/17/21 02/17/21 02/17/21 Range/Units 17:26 17:26 18:30 WBC (4.8-10.8) K/uL RBC (4.7-6.1) M/uL Hgb (14.0-18.0) g/dL POC Hgb (14.0-18.0) g/dl Hct (42-52) % POC Hct (42-52) % MCV (80-100) fL MCH (25-34) pg MCHC (32-36) g/dL RDW Std Deviation (36.4-46.3) fL RDW Coeff of Melba (11.5-14.5) % MPV (7.4-10.4) fL Neut # (Auto) (1.4-6.5) K/uL Lymph # (Auto) (1.2-3.4) K/uL [place] # (Auto) (0.11-0.59) K/uL Immature Gran # (Auto) (0.00-0.02) K/uL Absolute Nucleated RBC (0-0) K/uL PT (9.0-12.0) Seconds INR (0.9-1.1) POC pH (7.35-7.45) POC pCO2 (35-46) mmHg POC pO2 (80-95) mmHg POC HCO3 (19-24) mary/L POC Total CO2 (24-31) mmol/L POC Base Excess (-9-1.8) mary/L ABG pH (7.35-7.45) ABG pH (Temp Correct) (7.35-7.45) ABG pCO2 (35-46) mmHg ABG pCO2 (Temp Corrct (35-46) mmHg ABG pO2 (80-95) mmHg ABG HCO3 (19-24) mmol/L POC ABG O2 Sat (90-95) % ABG O2 Saturation (90-95) % VBG pH (7.36-7.41) Sodium 146 H (136-145) mmol/L Potassium 5.2 H (3.5-5.1) mmol/L Chloride 110 H (98-107) mmol/L Carbon Dioxide 17 L (21-32) mmol/L Anion Gap 19.0 H (3-11) BUN 63 H (7-18) mg/dl Creatinine 1.75 H (0.6-1.4) mg/dl BUN/Creatinine Ratio 35.7 H (10-20) Glucose 171 H (70-99) mg/dl POC Glucose (70-99) mg/dl Osmolality 338 H (280-300) mOsm/kg Lactate (0.4-2.0) mmol/L Calcium 8.2 L (8.5-10.1) mg/dl Phosphorus (2.5-4.9) mg/dl Total Bilirubin (0.2-1) mg/dl AST (15-37) U/L Troponin I (0-0.045) ng/ml C-Reactive Protein (0-0.29) mg/dl Total Protein 5.4 L (6.4-8.2) gm/dl Albumin 2.5 L (3.4-5.0) gm/dl Triglycerides (0-150) mg/dl Amylase (25-115) U/L Lipase (73-393) U/L Beta-Hydroxybutyric Acd (0.2-2.81) mg/dl Ur Specific [place] (1.000-1.030) Urine Protein (Negative) Urine Glucose (UA) (Negative) Urine Ketones (Negative) Urine Blood (Negative) Urine WBC (Auto) (0-5) /hpf Urine RBC (Auto) (0-4) /hpf U Epithel Cells (Auto) (0-5) /lpf Stool Occult Bld Scrn (Negative) Salicylates (2.8-20) mg/dl Urine Opiates Screen Pos H (Neg) Acetaminophen (10-30) ug/ml MDMA (Ecstasy) Screen Pos H (Neg) U Marijuana (THC) Screen Pos H (Neg) 02/17/21 02/17/21 02/17/21 Range/Units 19:49 19:49 20:56 WBC (4.8-10.8) K/uL RBC (4.7-6.1) M/uL Hgb (14.0-18.0) g/dL POC Hgb (14.0-18.0) g/dl Hct (42-52) % POC Hct (42-52) % MCV (80-100) fL MCH (25-34) pg MCHC (32-36) g/dL RDW Std Deviation (36.4-46.3) fL RDW Coeff of Melba (11.5-14.5) % MPV (7.4-10.4) fL Neut # (Auto) (1.4-6.5) K/uL Lymph # (Auto) (1.2-3.4) K/uL [place] # (Auto) (0.11-0.59) K/uL Immature Gran # (Auto) (0.00-0.02) K/uL Absolute Nucleated RBC (0-0) K/uL PT (9.0-12.0) Seconds INR (0.9-1.1) POC pH (7.35-7.45) POC pCO2 (35-46) mmHg POC pO2 (80-95) mmHg POC HCO3 (19-24) mary/L POC Total CO2 (24-31) mmol/L POC Base Excess (-9-1.8) mary/L ABG pH (7.35-7.45) ABG pH (Temp Correct) (7.35-7.45) ABG pCO2 (35-46) mmHg ABG pCO2 (Temp Corrct (35-46) mmHg ABG pO2 (80-95) mmHg ABG HCO3 (19-24) mmol/L POC ABG O2 Sat (90-95) % ABG O2 Saturation (90-95) % VBG pH (7.36-7.41) Sodium (136-145) mmol/L Potassium (3.5-5.1) mmol/L Chloride (98-107) mmol/L Carbon Dioxide (21-32) mmol/L Anion Gap (3-11) BUN (7-18) mg/dl Creatinine (0.6-1.4) mg/dl BUN/Creatinine Ratio (10-20) Glucose (70-99) mg/dl POC Glucose 115 H (70-99) mg/dl Osmolality (280-300) mOsm/kg Lactate 13.4 H* (0.4-2.0) mmol/L Calcium (8.5-10.1) mg/dl Phosphorus (2.5-4.9) mg/dl Total Bilirubin (0.2-1) mg/dl AST (15-37) U/L Troponin I (0-0.045) ng/ml C-Reactive Protein (0-0.29) mg/dl Total Protein (6.4-8.2) gm/dl Albumin (3.4-5.0) gm/dl Triglycerides (0-150) mg/dl Amylase (25-115) U/L Lipase (73-393) U/L Beta-Hydroxybutyric Acd 5.43 H (0.2-2.81) mg/dl Ur Specific [place] (1.000-1.030) Urine Protein (Negative) Urine Glucose (UA) (Negative) Urine Ketones (Negative) Urine Blood (Negative) Urine WBC (Auto) (0-5) /hpf Urine RBC (Auto) (0-4) /hpf U Epithel Cells (Auto) (0-5) /lpf Stool Occult Bld Scrn (Negative) Salicylates (2.8-20) mg/dl Urine Opiates Screen (Neg) Acetaminophen (10-30) ug/ml MDMA (Ecstasy) Screen (Neg) U Marijuana (THC) Screen (Neg) 02/17/21 02/17/21 02/17/21 Range/Units 21:10 21:10 22:17 WBC (4.8-10.8) K/uL RBC (4.7-6.1) M/uL Hgb (14.0-18.0) g/dL POC Hgb (14.0-18.0) g/dl Hct (42-52) % POC Hct (42-52) % MCV (80-100) fL MCH (25-34) pg MCHC (32-36) g/dL RDW Std Deviation (36.4-46.3) fL RDW Coeff of Melab (11.5-14.5) % MPV (7.4-10.4) fL Neut # (Auto) (1.4-6.5) K/uL Lymph # (Auto) (1.2-3.4) K/uL [place] # (Auto) (0.11-0.59) K/uL Immature Gran # (Auto) (0.00-0.02) K/uL Absolute Nucleated RBC (0-0) K/uL PT (9.0-12.0) Seconds INR (0.9-1.1) POC pH (7.35-7.45) POC pCO2 (35-46) mmHg POC pO2 (80-95) mmHg POC HCO3 (19-24) mary/L POC Total CO2 (24-31) mmol/L POC Base Excess (-9-1.8) mary/L ABG pH (7.35-7.45) ABG pH (Temp Correct) (7.35-7.45) ABG pCO2 (35-46) mmHg ABG pCO2 (Temp Corrct (35-46) mmHg ABG pO2 (80-95) mmHg ABG HCO3 (19-24) mmol/L POC ABG O2 Sat (90-95) % ABG O2 Saturation (90-95) % VBG pH 7.29 L (7.36-7.41) Sodium 149 H (136-145) mmol/L Potassium (3.5-5.1) mmol/L Chloride 112 H (98-107) mmol/L Carbon Dioxide (21-32) mmol/L Anion Gap 15.0 H (3-11) BUN 69 H (7-18) mg/dl Creatinine 1.77 H (0.6-1.4) mg/dl BUN/Creatinine Ratio 39.0 H (10-20) Glucose 112 H (70-99) mg/dl POC Glucose 169 H (70-99) mg/dl Osmolality (280-300) mOsm/kg Lactate (0.4-2.0) mmol/L Calcium 7.8 L (8.5-10.1) mg/dl Phosphorus 1.4 L* (2.5-4.9) mg/dl Total Bilirubin (0.2-1) mg/dl AST (15-37) U/L Troponin I 0.065 H* (0-0.045) ng/ml C-Reactive Protein (0-0.29) mg/dl Total Protein (6.4-8.2) gm/dl Albumin (3.4-5.0) gm/dl Triglycerides (0-150) mg/dl Amylase (25-115) U/L Lipase (73-393) U/L Beta-Hydroxybutyric Acd (0.2-2.81) mg/dl Ur Specific [place] (1.000-1.030) Urine Protein (Negative) Urine Glucose (UA) (Negative) Urine Ketones (Negative) Urine Blood (Negative) Urine WBC (Auto) (0-5) /hpf Urine RBC (Auto) (0-4) /hpf U Epithel Cells (Auto) (0-5) /lpf Stool Occult Bld Scrn (Negative) Salicylates (2.8-20) mg/dl Urine Opiates Screen (Neg) Acetaminophen (10-30) ug/ml MDMA (Ecstasy) Screen (Neg) U Marijuana (THC) Screen (Neg) 02/17/21 02/17/21 02/17/21 Range/Units 22:53 23:03 23:59 WBC (4.8-10.8) K/uL RBC (4.7-6.1) M/uL Hgb (14.0-18.0) g/dL POC Hgb (14.0-18.0) g/dl Hct (42-52) % POC Hct (42-52) % MCV (80-100) fL MCH (25-34) pg MCHC (32-36) g/dL RDW Std Deviation (36.4-46.3) fL RDW Coeff of Melba (11.5-14.5) % MPV (7.4-10.4) fL Neut # (Auto) (1.4-6.5) K/uL Lymph # (Auto) (1.2-3.4) K/uL [place] # (Auto) (0.11-0.59) K/uL Immature Gran # (Auto) (0.00-0.02) K/uL Absolute Nucleated RBC (0-0) K/uL PT (9.0-12.0) Seconds INR (0.9-1.1) POC pH (7.35-7.45) POC pCO2 (35-46) mmHg POC pO2 (80-95) mmHg POC HCO3 (19-24) mary/L POC Total CO2 (24-31) mmol/L POC Base Excess (-9-1.8) mary/L ABG pH (7.35-7.45) ABG pH (Temp Correct) (7.35-7.45) ABG pCO2 (35-46) mmHg ABG pCO2 (Temp Corrct (35-46) mmHg ABG pO2 (80-95) mmHg ABG HCO3 (19-24) mmol/L POC ABG O2 Sat (90-95) % ABG O2 Saturation (90-95) % VBG pH (7.36-7.41) Sodium (136-145) mmol/L Potassium (3.5-5.1) mmol/L Chloride (98-107) mmol/L Carbon Dioxide (21-32) mmol/L Anion Gap (3-11) BUN (7-18) mg/dl Creatinine (0.6-1.4) mg/dl BUN/Creatinine Ratio (10-20) Glucose (70-99) mg/dl POC Glucose 169 H 163 H (70-99) mg/dl Osmolality (280-300) mOsm/kg Lactate 11.4 H* (0.4-2.0) mmol/L Calcium (8.5-10.1) mg/dl Phosphorus (2.5-4.9) mg/dl Total Bilirubin (0.2-1) mg/dl AST (15-37) U/L Troponin I (0-0.045) ng/ml C-Reactive Protein (0-0.29) mg/dl Total Protein (6.4-8.2) gm/dl Albumin (3.4-5.0) gm/dl Triglycerides (0-150) mg/dl Amylase (25-115) U/L Lipase (73-393) U/L Beta-Hydroxybutyric Acd (0.2-2.81) mg/dl Ur Specific [place] (1.000-1.030) Urine Protein (Negative) Urine Glucose (UA) (Negative) Urine Ketones (Negative) Urine Blood (Negative) Urine WBC (Auto) (0-5) /hpf Urine RBC (Auto) (0-4) /hpf U Epithel Cells (Auto) (0-5) /lpf Stool Occult Bld Scrn (Negative) Salicylates (2.8-20) mg/dl Urine Opiates Screen (Neg) Acetaminophen (10-30) ug/ml MDMA (Ecstasy) Screen (Neg) U Marijuana (THC) Screen (Neg) 02/18/21 02/18/21 02/18/21 Range/Units 00:56 01:12 01:12 WBC (4.8-10.8) K/uL RBC (4.7-6.1) M/uL Hgb (14.0-18.0) g/dL POC Hgb (14.0-18.0) g/dl Hct (42-52) % POC Hct (42-52) % MCV (80-100) fL MCH (25-34) pg MCHC (32-36) g/dL RDW Std Deviation (36.4-46.3) fL RDW Coeff of Melba (11.5-14.5) % MPV (7.4-10.4) fL Neut # (Auto) (1.4-6.5) K/uL Lymph # (Auto) (1.2-3.4) K/uL [place] # (Auto) (0.11-0.59) K/uL Immature Gran # (Auto) (0.00-0.02) K/uL Absolute Nucleated RBC (0-0) K/uL PT (9.0-12.0) Seconds INR (0.9-1.1) POC pH (7.35-7.45) POC pCO2 (35-46) mmHg POC pO2 (80-95) mmHg POC HCO3 (19-24) mary/L POC Total CO2 (24-31) mmol/L POC Base Excess (-9-1.8) mary/L ABG pH (7.35-7.45) ABG pH (Temp Correct) (7.35-7.45) ABG pCO2 (35-46) mmHg ABG pCO2 (Temp Corrct (35-46) mmHg ABG pO2 (80-95) mmHg ABG HCO3 (19-24) mmol/L POC ABG O2 Sat (90-95) % ABG O2 Saturation (90-95) % VBG pH 7.30 L (7.36-7.41) Sodium 148 H (136-145) mmol/L Potassium (3.5-5.1) mmol/L Chloride 114 H (98-107) mmol/L Carbon Dioxide (21-32) mmol/L Anion Gap 12.0 H (3-11) BUN 64 H (7-18) mg/dl Creatinine 1.71 H (0.6-1.4) mg/dl BUN/Creatinine Ratio 37.7 H (10-20) Glucose 126 H (70-99) mg/dl POC Glucose 144 H (70-99) mg/dl Osmolality (280-300) mOsm/kg Lactate (0.4-2.0) mmol/L Calcium 8.1 L (8.5-10.1) mg/dl Phosphorus 0.8 L* (2.5-4.9) mg/dl Total Bilirubin (0.2-1) mg/dl AST (15-37) U/L Troponin I (0-0.045) ng/ml C-Reactive Protein (0-0.29) mg/dl Total Protein (6.4-8.2) gm/dl Albumin (3.4-5.0) gm/dl Triglycerides (0-150) mg/dl Amylase (25-115) U/L Lipase (73-393) U/L Beta-Hydroxybutyric Acd (0.2-2.81) mg/dl Ur Specific [place] (1.000-1.030) Urine Protein (Negative) Urine Glucose (UA) (Negative) Urine Ketones (Negative) Urine Blood (Negative) Urine WBC (Auto) (0-5) /hpf Urine RBC (Auto) (0-4) /hpf U Epithel Cells (Auto) (0-5) /lpf Stool Occult Bld Scrn (Negative) Salicylates (2.8-20) mg/dl Urine Opiates Screen (Neg) Acetaminophen (10-30) ug/ml MDMA (Ecstasy) Screen (Neg) U Marijuana (THC) Screen (Neg) 02/18/21 02/18/21 02/18/21 Range/Units 02:00 02:26 02:58 WBC (4.8-10.8) K/uL RBC (4.7-6.1) M/uL Hgb (14.0-18.0) g/dL POC Hgb (14.0-18.0) g/dl Hct (42-52) % POC Hct (42-52) % MCV (80-100) fL MCH (25-34) pg MCHC (32-36) g/dL RDW Std Deviation (36.4-46.3) fL RDW Coeff of Melba (11.5-14.5) % MPV (7.4-10.4) fL Neut # (Auto) (1.4-6.5) K/uL Lymph # (Auto) (1.2-3.4) K/uL [place] # (Auto) (0.11-0.59) K/uL Immature Gran # (Auto) (0.00-0.02) K/uL Absolute Nucleated RBC (0-0) K/uL PT (9.0-12.0) Seconds INR (0.9-1.1) POC pH (7.35-7.45) POC pCO2 (35-46) mmHg POC pO2 (80-95) mmHg POC HCO3 (19-24) mary/L POC Total CO2 (24-31) mmol/L POC Base Excess (-9-1.8) mary/L ABG pH (7.35-7.45) ABG pH (Temp Correct) (7.35-7.45) ABG pCO2 (35-46) mmHg ABG pCO2 (Temp Corrct (35-46) mmHg ABG pO2 (80-95) mmHg ABG HCO3 (19-24) mmol/L POC ABG O2 Sat (90-95) % ABG O2 Saturation (90-95) % VBG pH (7.36-7.41) Sodium (136-145) mmol/L Potassium (3.5-5.1) mmol/L Chloride (98-107) mmol/L Carbon Dioxide (21-32) mmol/L Anion Gap (3-11) BUN (7-18) mg/dl Creatinine (0.6-1.4) mg/dl BUN/Creatinine Ratio (10-20) Glucose (70-99) mg/dl POC Glucose 135 H 128 H (70-99) mg/dl Osmolality (280-300) mOsm/kg Lactate (0.4-2.0) mmol/L Calcium (8.5-10.1) mg/dl Phosphorus (2.5-4.9) mg/dl Total Bilirubin (0.2-1) mg/dl AST (15-37) U/L Troponin I (0-0.045) ng/ml C-Reactive Protein (0-0.29) mg/dl Total Protein (6.4-8.2) gm/dl Albumin (3.4-5.0) gm/dl Triglycerides (0-150) mg/dl Amylase (25-115) U/L Lipase (73-393) U/L Beta-Hydroxybutyric Acd (0.2-2.81) mg/dl Ur Specific [place] (1.000-1.030) Urine Protein (Negative) Urine Glucose (UA) (Negative) Urine Ketones (Negative) Urine Blood (Negative) Urine WBC (Auto) (0-5) /hpf Urine RBC (Auto) (0-4) /hpf U Epithel Cells (Auto) (0-5) /lpf Stool Occult Bld Scrn Positive A (Negative) Salicylates (2.8-20) mg/dl Urine Opiates Screen (Neg) Acetaminophen (10-30) ug/ml MDMA (Ecstasy) Screen (Neg) U Marijuana (THC) Screen (Neg) 02/18/21 02/18/21 02/18/21 Range/Units 03:59 04:34 04:34 WBC (4.8-10.8) K/uL RBC (4.7-6.1) M/uL Hgb (14.0-18.0) g/dL POC Hgb (14.0-18.0) g/dl Hct (42-52) % POC Hct (42-52) % MCV (80-100) fL MCH (25-34) pg MCHC (32-36) g/dL RDW Std Deviation (36.4-46.3) fL RDW Coeff of Melba (11.5-14.5) % MPV (7.4-10.4) fL Neut # (Auto) (1.4-6.5) K/uL Lymph # (Auto) (1.2-3.4) K/uL [place] # (Auto) (0.11-0.59) K/uL Immature Gran # (Auto) (0.00-0.02) K/uL Absolute Nucleated RBC (0-0) K/uL PT (9.0-12.0) Seconds INR (0.9-1.1) POC pH (7.35-7.45) POC pCO2 (35-46) mmHg POC pO2 (80-95) mmHg POC HCO3 (19-24) mary/L POC Total CO2 (24-31) mmol/L POC Base Excess (-9-1.8) mary/L ABG pH (7.35-7.45) ABG pH (Temp Correct) (7.35-7.45) ABG pCO2 (35-46) mmHg ABG pCO2 (Temp Corrct (35-46) mmHg ABG pO2 (80-95) mmHg ABG HCO3 (19-24) mmol/L POC ABG O2 Sat (90-95) % ABG O2 Saturation (90-95) % VBG pH 7.44 H (7.36-7.41) Sodium (136-145) mmol/L Potassium (3.5-5.1) mmol/L Chloride (98-107) mmol/L Carbon Dioxide (21-32) mmol/L Anion Gap (3-11) BUN (7-18) mg/dl Creatinine (0.6-1.4) mg/dl BUN/Creatinine Ratio (10-20) Glucose (70-99) mg/dl POC Glucose 122 H (70-99) mg/dl Osmolality (280-300) mOsm/kg Lactate (0.4-2.0) mmol/L Calcium (8.5-10.1) mg/dl Phosphorus (2.5-4.9) mg/dl Total Bilirubin (0.2-1) mg/dl AST (15-37) U/L Troponin I 0.158 H* (0-0.045) ng/ml C-Reactive Protein (0-0.29) mg/dl Total Protein (6.4-8.2) gm/dl Albumin (3.4-5.0) gm/dl Triglycerides (0-150) mg/dl Amylase (25-115) U/L Lipase (73-393) U/L Beta-Hydroxybutyric Acd (0.2-2.81) mg/dl Ur Specific [place] (1.000-1.030) Urine Protein (Negative) Urine Glucose (UA) (Negative) Urine Ketones (Negative) Urine Blood (Negative) Urine WBC (Auto) (0-5) /hpf Urine RBC (Auto) (0-4) /hpf U Epithel Cells (Auto) (0-5) /lpf Stool Occult Bld Scrn (Negative) Salicylates (2.8-20) mg/dl Urine Opiates Screen (Neg) Acetaminophen (10-30) ug/ml MDMA (Ecstasy) Screen (Neg) U Marijuana (THC) Screen (Neg) 02/18/21 02/18/2102/18/21 Range/Units 04:37 04:37 04:37 WBC 24.91 H (4.8-10.8) K/uL RBC 2.57 L (4.7-6.1) M/uL Hgb 8.5 L (14.0-18.0) g/dL POC Hgb (14.0-18.0) g/dl Hct 25.9 L (42-52) % POC Hct (42-52) % MCV 100.8 H D (80-100) fL MCH (25-34) pg MCHC (32-36) g/dL RDW Std Deviation 55.4 H (36.4-46.3) fL RDW Coeff of Melba 15.4 H (11.5-14.5) % MPV (7.4-10.4) fL Neut # (Auto) 22.23 H (1.4-6.5) K/uL Lymph # (Auto) (1.2-3.4) K/uL [place] # (Auto) 0.99 H (0.11-0.59) K/uL Immature Gran # (Auto) 0.36 H (0.00-0.02) K/uL Absolute Nucleated RBC 0.06 H (0-0) K/uL PT (9.0-12.0) Seconds INR (0.9-1.1) POC pH (7.35-7.45) POC pCO2 (35-46) mmHg POC pO2 (80-95) mmHg POC HCO3 (19-24) mary/L POC Total CO2 (24-31) mmol/L POC Base Excess (-9-1.8) mary/L ABG pH (7.35-7.45) ABG pH (Temp Correct) (7.35-7.45) ABG pCO2 (35-46) mmHg ABG pCO2 (Temp Corrct (35-46) mmHg ABG pO2 (80-95) mmHg ABG HCO3 (19-24) mmol/L POC ABG O2 Sat (90-95) % ABG O2 Saturation (90-95) % VBG pH (7.36-7.41) Sodium 146 H (136-145) mmol/L Potassium (3.5-5.1) mmol/L Chloride 115 H (98-107) mmol/L Carbon Dioxide (21-32) mmol/L Anion Gap (3-11) BUN 64 H (7-18) mg/dl Creatinine 1.71 H (0.6-1.4) mg/dl BUN/Creatinine Ratio 37.2 H (10-20) Glucose 113 H (70-99) mg/dl POC Glucose (70-99) mg/dl Osmolality (280-300) mOsm/kg Lactate 6.7 H* (0.4-2.0) mmol/L Calcium 7.7 L (8.5-10.1) mg/dl Phosphorus 0.9 L* (2.5-4.9) mg/dl Total Bilirubin (0.2-1) mg/dl AST (15-37) U/L Troponin I (0-0.045) ng/ml C-Reactive Protein (0-0.29) mg/dl Total Protein (6.4-8.2) gm/dl Albumin (3.4-5.0) gm/dl Triglycerides 157 H (0-150) mg/dl Amylase (25-115) U/L Lipase (73-393) U/L Beta-Hydroxybutyric Acd 4.57 H (0.2-2.81) mg/dl Ur Specific [place] (1.000-1.030) Urine Protein (Negative) Urine Glucose (UA) (Negative) Urine Ketones (Negative) Urine Blood (Negative) Urine WBC (Auto) (0-5) /hpf Urine RBC (Auto) (0-4) /hpf U Epithel Cells (Auto) (0-5) /lpf Stool Occult Bld Scrn (Negative) Salicylates (2.8-20) mg/dl Urine Opiates Screen (Neg) Acetaminophen (10-30) ug/ml MDMA (Ecstasy) Screen (Neg) U Marijuana (THC) Screen (Neg) 02/18/21 02/18/21 02/18/21 Range/Units 05:05 06:05 06:57 WBC (4.8-10.8) K/uL RBC (4.7-6.1) M/uL Hgb (14.0-18.0) g/dL POC Hgb (14.0-18.0) g/dl Hct (42-52) % POC Hct (42-52) % MCV (80-100) fL MCH (25-34) pg MCHC (32-36) g/dL RDW Std Deviation (36.4-46.3) fL RDW Coeff of Melba (11.5-14.5) % MPV (7.4-10.4) fL Neut # (Auto) (1.4-6.5) K/uL Lymph # (Auto) (1.2-3.4) K/uL [place] # (Auto) (0.11-0.59) K/uL Immature Gran # (Auto) (0.00-0.02) K/uL Absolute Nucleated RBC (0-0) K/uL PT (9.0-12.0) Seconds INR (0.9-1.1) POC pH (7.35-7.45) POC pCO2 (35-46) mmHg POC pO2 (80-95) mmHg POC HCO3 (19-24) mary/L POC Total CO2 (24-31) mmol/L POC Base Excess (-9-1.8) mary/L ABG pH (7.35-7.45) ABG pH (Temp Correct) (7.35-7.45) ABG pCO2 (35-46) mmHg ABG pCO2 (Temp Corrct (35-46) mmHg ABG pO2 (80-95) mmHg ABG HCO3 (19-24) mmol/L POC ABG O2 Sat (90-95) % ABG O2 Saturation (90-95) % VBG pH (7.36-7.41) Sodium (136-145) mmol/L Potassium (3.5-5.1) mmol/L Chloride (98-107) mmol/L Carbon Dioxide (21-32) mmol/L Anion Gap (3-11) BUN (7-18) mg/dl Creatinine (0.6-1.4) mg/dl BUN/Creatinine Ratio (10-20) Glucose (70-99) mg/dl POC Glucose 128 H 137 H 144 H (70-99) mg/dl Osmolality (280-300) mOsm/kg Lactate (0.4-2.0) mmol/L Calcium (8.5-10.1) mg/dl Phosphorus (2.5-4.9) mg/dl Total Bilirubin (0.2-1) mg/dl AST (15-37) U/L Troponin I (0-0.045) ng/ml C-Reactive Protein (0-0.29) mg/dl Total Protein (6.4-8.2) gm/dl Albumin (3.4-5.0) gm/dl Triglycerides (0-150) mg/dl Amylase (25-115) U/L Lipase (73-393) U/L Beta-Hydroxybutyric Acd (0.2-2.81) mg/dl Ur Specific [place] (1.000-1.030) Urine Protein (Negative) Urine Glucose (UA) (Negative) Urine Ketones (Negative) Urine Blood (Negative) Urine WBC (Auto) (0-5) /hpf Urine RBC (Auto) (0-4) /hpf U Epithel Cells (Auto) (0-5) /lpf Stool Occult Bld Scrn (Negative) Salicylates (2.8-20) mg/dl Urine Opiates Screen (Neg) Acetaminophen (10-30) ug/ml MDMA (Ecstasy) Screen (Neg) U Marijuana (THC) Screen (Neg) 02/18/21 02/18/21 02/18/21 Range/Units 07:56 09:03 09:03 WBC (4.8-10.8) K/uL RBC (4.7-6.1) M/uL Hgb (14.0-18.0) g/dL POC Hgb (14.0-18.0) g/dl Hct (42-52) % POC Hct (42-52) % MCV (80-100) fL MCH (25-34) pg MCHC (32-36) g/dL RDW Std Deviation (36.4-46.3) fL RDW Coeff of Melba (11.5-14.5) % MPV (7.4-10.4) fL Neut # (Auto) (1.4-6.5) K/uL Lymph # (Auto) (1.2-3.4) K/uL [place] # (Auto) (0.11-0.59) K/uL Immature Gran # (Auto) (0.00-0.02) K/uL Absolute Nucleated RBC (0-0) K/uL PT (9.0-12.0) Seconds INR (0.9-1.1) POC pH (7.35-7.45) POC pCO2 (35-46) mmHg POC pO2 (80-95) mmHg POC HCO3 (19-24) mary/L POC Total CO2 (24-31) mmol/L POC Base Excess (-9-1.8) mary/L ABG pH (7.35-7.45) ABG pH (Temp Correct) (7.35-7.45) ABG pCO2 (35-46) mmHg ABG pCO2 (Temp Corrct (35-46) mmHg ABG pO2 (80-95) mmHg ABG HCO3 (19-24) mmol/L POC ABG O2 Sat (90-95) % ABG O2 Saturation (90-95) % VBG pH (7.36-7.41) Sodium 147 H (136-145) mmol/L Potassium (3.5-5.1) mmol/L Chloride 114 H (98-107) mmol/L Carbon Dioxide 20 L (21-32) mmol/L Anion Gap 13.0 H (3-11) BUN 63 H (7-18) mg/dl Creatinine 1.79 H (0.6-1.4) mg/dl BUN/Creatinine Ratio 35.4 H (10-20) Glucose 155 H (70-99) mg/dl POC Glucose 158 H (70-99) mg/dl Osmolality (280-300) mOsm/kg Lactate 7.4 H* (0.4-2.0) mmol/L Calcium 8.0 L (8.5-10.1) mg/dl Phosphorus 1.2 L* (2.5-4.9) mg/dl Total Bilirubin (0.2-1) mg/dl AST (15-37) U/L Troponin I (0-0.045) ng/ml C-Reactive Protein 1.60 H (0-0.29) mg/dl Total Protein (6.4-8.2) gm/dl Albumin (3.4-5.0) gm/dl Triglycerides (0-150) mg/dl Amylase (25-115) U/L Lipase (73-393) U/L Beta-Hydroxybutyric Acd (0.2-2.81) mg/dl Ur Specific [place] (1.000-1.030) Urine Protein (Negative) Urine Glucose (UA) (Negative) Urine Ketones (Negative) Urine Blood (Negative) Urine WBC (Auto) (0-5) /hpf Urine RBC (Auto) (0-4) /hpf U Epithel Cells (Auto) (0-5) /lpf Stool Occult Bld Scrn (Negative) Salicylates (2.8-20) mg/dl Urine Opiates Screen (Neg) Acetaminophen (10-30) ug/ml MDMA (Ecstasy) Screen (Neg) U Marijuana (THC) Screen (Neg) 02/18/21 02/18/21 02/18/21 Range/Units 09:03 09:03 09:06 WBC (4.8-10.8) K/uL RBC (4.7-6.1) M/uL Hgb (14.0-18.0) g/dL POC Hgb (14.0-18.0) g/dl Hct (42-52) % POC Hct (42-52) % MCV (80-100) fL MCH (25-34) pg MCHC (32-36) g/dL RDW Std Deviation (36.4-46.3) fL RDW Coeff of Melba (11.5-14.5) % MPV (7.4-10.4) fL Neut # (Auto) (1.4-6.5) K/uL Lymph # (Auto) (1.2-3.4) K/uL [place] # (Auto) (0.11-0.59) K/uL Immature Gran # (Auto) (0.00-0.02) K/uL Absolute Nucleated RBC (0-0) K/uL PT 16.0 H (9.0-12.0) Seconds INR 1.6 H (0.9-1.1) POC pH (7.35-7.45) POC pCO2 (35-46) mmHg POC pO2 (80-95) mmHg POC HCO3 (19-24) mary/L POC Total CO2 (24-31) mmol/L POC Base Excess (-9-1.8) mary/L ABG pH (7.35-7.45) ABG pH (Temp Correct) (7.35-7.45) ABG pCO2 (35-46) mmHg ABG pCO2 (Temp Corrct (35-46) mmHg ABG pO2 (80-95) mmHg ABG HCO3 (19-24) mmol/L POC ABG O2 Sat (90-95) % ABG O2 Saturation (90-95) % VBG pH (7.36-7.41) Sodium (136-145) mmol/L Potassium (3.5-5.1) mmol/L Chloride (98-107) mmol/L Carbon Dioxide (21-32) mmol/L Anion Gap (3-11) BUN (7-18) mg/dl Creatinine (0.6-1.4) mg/dl BUN/Creatinine Ratio (10-20) Glucose (70-99) mg/dl POC Glucose 169 H (70-99) mg/dl Osmolality (280-300) mOsm/kg Lactate (0.4-2.0) mmol/L Calcium (8.5-10.1) mg/dl Phosphorus (2.5-4.9) mg/dl Total Bilirubin (0.2-1) mg/dl AST (15-37) U/L Troponin I (0-0.045) ng/ml C-Reactive Protein (0-0.29) mg/dl Total Protein (6.4-8.2) gm/dl Albumin (3.4-5.0) gm/dl Triglycerides (0-150) mg/dl Amylase (25-115) U/L Lipase (73-393) U/L Beta-Hydroxybutyric Acd (0.2-2.81) mg/dl Ur Specific [place] (1.000-1.030) Urine Protein (Negative) Urine Glucose (UA) (Negative) Urine Ketones (Negative) Urine Blood (Negative) Urine WBC (Auto) (0-5) /hpf Urine RBC (Auto) (0-4) /hpf U Epithel Cells (Auto) (0-5) /lpf Stool Occult Bld Scrn (Negative) Salicylates < 1.7 L (2.8-20) mg/dl Urine Opiates Screen (Neg) Acetaminophen 4 L (10-30) ug/ml MDMA (Ecstasy) Screen (Neg) U Marijuana (THC) Screen (Neg) 02/18/21 02/18/21 02/18/21 Range/Units 10:17 10:55 10:55 WBC (4.8-10.8) K/uL RBC (4.7-6.1) M/uL Hgb 8.3 L (14.0-18.0) g/dL POC Hgb (14.0-18.0) g/dl Hct 24.3 L (42-52) % POC Hct (42-52) % MCV (80-100) fL MCH (25-34) pg MCHC (32-36) g/dL RDW Std Deviation (36.4-46.3) fL RDW Coeff of Melba (11.5-14.5) % MPV (7.4-10.4) fL Neut # (Auto) (1.4-6.5) K/uL Lymph # (Auto) (1.2-3.4) K/uL [place] # (Auto) (0.11-0.59) K/uL Immature Gran # (Auto) (0.00-0.02) K/uL Absolute Nucleated RBC (0-0) K/uL PT (9.0-12.0) Seconds INR (0.9-1.1) POC pH (7.35-7.45) POC pCO2 (35-46) mmHg POC pO2 (80-95) mmHg POC HCO3 (19-24) mary/L POC Total CO2 (24-31) mmol/L POC Base Excess (-9-1.8) mary/L ABG pH (7.35-7.45) ABG pH (Temp Correct) (7.35-7.45) ABG pCO2 (35-46) mmHg ABG pCO2 (Temp Corrct (35-46) mmHg ABG pO2 (80-95) mmHg ABG HCO3 (19-24) mmol/L POC ABG O2 Sat (90-95) % ABG O2 Saturation (90-95) % VBG pH (7.36-7.41) Sodium (136-145) mmol/L Potassium (3.5-5.1) mmol/L Chloride (98-107) mmol/L Carbon Dioxide (21-32) mmol/L Anion Gap (3-11) BUN (7-18) mg/dl Creatinine (0.6-1.4) mg/dl BUN/Creatinine Ratio (10-20) Glucose (70-99) mg/dl POC Glucose 160 H (70-99) mg/dl Osmolality (280-300) mOsm/kg Lactate 8.5 H* (0.4-2.0) mmol/L Calcium (8.5-10.1) mg/dl Phosphorus (2.5-4.9) mg/dl Total Bilirubin (0.2-1) mg/dl AST (15-37) U/L Troponin I (0-0.045) ng/ml C-Reactive Protein (0-0.29) mg/dl Total Protein (6.4-8.2) gm/dl Albumin (3.4-5.0) gm/dl Triglycerides (0-150) mg/dl Amylase (25-115) U/L Lipase (73-393) U/L Beta-Hydroxybutyric Acd (0.2-2.81) mg/dl Ur Specific [place] (1.000-1.030) Urine Protein (Negative) Urine Glucose (UA) (Negative) Urine Ketones (Negative) Urine Blood (Negative) Urine WBC (Auto) (0-5) /hpf Urine RBC (Auto) (0-4) /hpf U Epithel Cells (Auto) (0-5) /lpf Stool Occult Bld Scrn (Negative) Salicylates (2.8-20) mg/dl Urine Opiates Screen (Neg) Acetaminophen (10-30) ug/ml MDMA (Ecstasy) Screen (Neg) U Marijuana (THC) Screen (Neg) 02/18/21 Range/Units 11:12 WBC (4.8-10.8) K/uL RBC (4.7-6.1) M/uL Hgb (14.0-18.0) g/dL POC Hgb (14.0-18.0) g/dl Hct (42-52) % POC Hct (42-52) % MCV (80-100) fL MCH (25-34) pg MCHC (32-36) g/dL RDW Std Deviation (36.4-46.3) fL RDW Coeff of Melba (11.5-14.5) % MPV (7.4-10.4) fL Neut # (Auto) (1.4-6.5) K/uL Lymph # (Auto) (1.2-3.4) K/uL [place] # (Auto) (0.11-0.59) K/uL Immature Gran # (Auto) (0.00-0.02) K/uL Absolute Nucleated RBC (0-0) K/uL PT (9.0-12.0) Seconds INR (0.9-1.1) POC pH (7.35-7.45) POC pCO2 (35-46) mmHg POC pO2 (80-95) mmHg POC HCO3 (19-24) mary/L POC Total CO2 (24-31) mmol/L POC Base Excess (-9-1.8) mary/L ABG pH (7.35-7.45) ABG pH (Temp Correct) (7.35-7.45) ABG pCO2 (35-46) mmHg ABG pCO2 (Temp Corrct (35-46) mmHg ABG pO2 (80-95) mmHg ABG HCO3 (19-24) mmol/L POC ABG O2 Sat (90-95) % ABG O2 Saturation (90-95) % VBG pH (7.36-7.41) Sodium (136-145) mmol/L Potassium (3.5-5.1) mmol/L Chloride (98-107) mmol/L Carbon Dioxide (21-32) mmol/L Anion Gap (3-11) BUN (7-18) mg/dl Creatinine (0.6-1.4) mg/dl BUN/Creatinine Ratio (10-20) Glucose (70-99) mg/dl POC Glucose 152 H (70-99) mg/dl Osmolality (280-300) mOsm/kg Lactate (0.4-2.0) mmol/L Calcium (8.5-10.1) mg/dl Phosphorus (2.5-4.9) mg/dl Total Bilirubin (0.2-1) mg/dl AST (15-37) U/L Troponin I (0-0.045) ng/ml C-Reactive Protein (0-0.29) mg/dl Total Protein (6.4-8.2) gm/dl Albumin (3.4-5.0) gm/dl Triglycerides (0-150) mg/dl Amylase (25-115) U/L Lipase (73-393) U/L Beta-Hydroxybutyric Acd (0.2-2.81) mg/dl Ur Specific [place] (1.000-1.030) Urine Protein (Negative) Urine Glucose (UA) (Negative) Urine Ketones (Negative) Urine Blood (Negative) Urine WBC (Auto) (0-5) /hpf Urine RBC (Auto) (0-4) /hpf U Epithel Cells (Auto) (0-5) /lpf Stool Occult Bld Scrn (Negative) Salicylates (2.8-20) mg/dl Urine Opiates Screen (Neg) Acetaminophen (10-30) ug/ml MDMA (Ecstasy) Screen (Neg) U Marijuana (THC) Screen (Neg) PG Care Time/CCT Total # of Minutes Spent Total Time Spent with Patient: Total time spent is greater than 50% in coordination of care (as documented) at patient's floor/unit and/or counseling patient: Coding Level of Care Code 17514 Initial Inpt Care Lvl 3 Diagnoses Acute metabolic encephalopathy G93.41 Acute respiratory failure with hypoxia J96.01 Heme positive stool R19.5
[2021-02-18] MEDS: metroNIDAZOLE 500 MG/100 ML BAG IV SCH ×2 (11:49→20:24)
[2021-02-18] MEDS: VANCOMYCIN HCL 1,500 MG in SODIUM CHLORIDE 0.9% 500 ML IV SCH (11:55)
[2021-02-18 13:25] LABS: BUN Creatinine Ratio 33.3 (10-20); Calcium 7.6 mg/dl (8.5-10.1); Creatinine Clr Calc Pharmacy 50.6 ml/min; Est GFR (African American) 45.1 ml/min; Est GFR (Non-African American) 38.9 ml/min; Magnesium 2.3 mg/dl (1.8-2.4); Potassium 3.8 mmol/L (3.5-5.1)
[2021-02-18 13:26] LABS: Phosphorus 1.7 mg/dl (2.5-4.9)
--- NOTE | 2021-02-18 14:02 | Hospitalist Progress Note ---
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 (2) Acute blood loss anemia: Hemoglobin dropped to 6.1 will transfuse PRBC EGD with normal esophagus, stomach, duodenum has evidence of bleed along psoas muscle, spontaneous retroperitoneal bleed hold anticoagulation (3) Acute respiratory failure with hypoxia: breathing fast on low flow oxygen due to sepsis was intubated electively to protect airway, plan for EGD (4) KAYKAY (acute kidney injury): Cr was 1.8, down to 1.6, making urine via thorne electrolytes stable monitor closely (5) Acute metabolic encephalopathy: due to sepsis, lactic acidosis (6) Chronic obstructive pulmonary disease: BiPAP initially, then down to room air but then intubated for EGD Solu Medrol 40 q12 Duo nebs PRN (7) Hypertension: Patient appears to be on furosemide 20 mg daily along with Lopressor 25 mg twice daily hold Eliquis continue metoprolol cancel cardiology consult for time being echo with EF of 70%, hyperdynamic LV in setting of sepsis, acute blood loss anemia (8) Temporal arteritis: Per previous documentation, patient was on 8 mg of prednisone will methotrexate Will continue methotrexate as ordered. Okay to hold prednisone as patient will be on Solu-Medrol (9) Dyslipidemia: Patient is on simvastatin 40mg, will check fasting lipid panel Admission and Anticipated Discharge Date Admission Date: February 17, 2021 Subjective patient admitted with sepsis, found down in his yard, lactic acid was very elevated at 12 patient is not able to answer questions, encephalopathy reviewed chart and labs, discussed with Dr. Pulido, he is managing patient Hb dropped, CT shows small retroperitoneal bleed, had some melena he was intubated and EGD done, normal esophagus, stomach and duodenum Cr is improving Review of Systems Review of Systems: Unobtainable due to cognitive status and Unobtainable due to reduced consciousness Physical Exam Constitutional: well developed, + ill appearing and + frail appearing; + uncooperative Neck: trachea midline, no thyromegaly Respiratory: + labored breathing and + tachypneic Auscultation: lungs clear to auscultation bilaterally Cardiovascular: Rate/Rhythm: regular rhythm and + tachycardic Heart Sounds: normal S1 and normal S2; no murmur Vessels: no JVD Extremities: normal capillary refill; no edema Gastrointestinal (Abdomen): normal bowel sounds, soft, nontender, no hepatosplenomegaly Skin: no rashes, warm and dry Neurologic: CN's II-XI intact bilaterally and + obtunded; no focal motor deficits Psychiatric: Orientation: + not alert Results & Data Results & Data ([facility]) Vital Signs (Past 12 Hours) Vital Signs Temp Pulse Pulse Resp BP Pulse Ox 02/18/21 10:34 118 H 20 104/58 L 98 02/18/21 10:30 110 H 20 99 02/18/21 10:15 126 H 30 H 98 02/18/21 10:03 133 H 24 124/68 100 02/18/21 09:30 121 H 17 99 02/18/21 09:16 124 H 21 99 02/18/21 09:14 126 H 22 169/74 H 99 02/18/21 09:00 118 H 24 02/18/21 08:45 134 H 27 H 176/111 H 02/18/21 08:30 125 H 23 02/18/21 08:16 129 H 25 H 02/18/21 08:15 127 H 20 172/100 H 02/18/21 08:00 118 H 18 02/18/21 07:52 117 H 22 142/71 H 99 02/18/21 07:46 121 H 27 H 98 02/18/21 07:44 122 H 27 H 187/110 H 98 02/18/21 07:43 116 H 22 98 02/18/21 07:30 121 H 23 99 02/18/21 07:15 36.7 C 8 L 197/114 H 99 02/18/21 07:00 117 H 23 99 02/18/21 06:46 117 H 22 100 02/18/21 06:44 116 H 21 132/83 100 02/18/21 06:15 123 H 20 107/79 98 02/18/21 05:19 124 H 131/76 02/18/21 05:15 126 H 22 166/127 H 100 02/18/21 04:22 37.1 C 120 H 20 134/86 99 02/18/21 03:38 120 H 28 H 99 07/06/21 03:24 120 H 22 152/101 H 97 02/18/21 02:14 121 H 18 168/90 H 100 Laboratory Results Laboratory Results - last 24 hr 02/17/21 02/17/21 02/17/21 12:32 13:30 15:00 WBC RBC Hgb POC Hgb Hct POC Hct MCV MCH MCHC RDW Std Deviation RDW Coeff of Melba Plt Count MPV Immature Gran % (Auto) Neut % (Auto) Lymph % (Auto) Gonzales % (Auto) Eos % (Auto) Baso % (Auto) Neut # (Auto) Lymph # (Auto) Gonzales # (Auto) Eos # (Auto) Baso # (Auto) Immature Gran # (Auto) Absolute Nucleated RBC Nucleated RBC % (auto) RBC Morphology Polychromasia ESR PT 14.4 H INR 1.5 H APTT 22.8 PTT Ratio 0.9 Fibrinogen Heparin Anti-Xa, LM Wt > 1.50 Sample Site POC pH POC pCO2 POC pO2 POC HCO3 POC Total CO2 POC Base Excess ABG pH (Temp Correct) ABG pCO2 (Temp Corrct POC ABG pO2 at Pt Temp POC ABG O2 Sat Kodak Test VBG pH O2 Delivery Device POC O2 Rate POC FiO2 IPAP POC Sodium Sodium POC Potassium Potassium Chloride Carbon Dioxide Anion Gap BUN Creatinine Est Cr Clr Drug Dosing Est GFR ( Amer) Est GFR (Non-Af Amer) BUN/Creatinine Ratio Glucose POC Glucose Osmolality Lactate 4.8 H* Calcium Phosphorus Magnesium Total Bilirubin AST ALT Alkaline Phosphatase Total Creatine Kinase Troponin I C-Reactive Protein Total Protein Albumin Globulin Albumin/Globulin Ratio Triglycerides Cholesterol LDL Cholesterol, Calc VLDL Cholesterol, Calc HDL Cholesterol Cholesterol/HDL Ratio Beta-Hydroxybutyric Acd TSH Urine Osmolality Ur Random Creatinine Ur Random Sodium Ur Random Potassium Ur Random Chloride Ur Random Uric Acid Nasal Screen MRSA (PCR) Stool Occult Bld Scrn Random Vancomycin Methotrexate Salicylates Urine Opiates Screen U Codeine Confrm GC/MS Ur Morphine (GC/MS) Ur Hydrocodone (GC/MS) Ur Norhydrocodone Ur Noroxycodone Urine Oxycodone (GC/MS) U Oxymorphone GC/MS Ur Methadone, Qual Ur Hydromorphone (GC/MS) Acetaminophen Urine Barbiturates Ur Phencyclidine (PCP) U Amphetamin/Meth Scrn Urine MDEA MDMA (Ecstasy) Screen MDMA Urine MDMA U Benzodiazepines Scrn Ur Cocaine Metabolite U Marijuana (THC) Screen U Marijuana THC Carboxy Drug Screen Comment Ethylene Glycol Volat Analys Perform On Ethyl Alcohol mg/dL Methyl Alcohol Level SARS-CoV-2 (PCR) NEGATIVE Blood Type Blood Type Recheck Antibody Screen 02/17/21 02/17/21 02/17/21 15:45 16:24 16:28 WBC RBC Hgb POC Hgb 8.8 L Hct POC Hct 26 L MCV MCH MCHC RDW Std Deviation RDW Coeff of Melba Plt Count MPV Immature Gran % (Auto) Neut % (Auto) Lymph % (Auto) Gonzales % (Auto) Eos % (Auto) Baso % (Auto) Neut # (Auto) Lymph # (Auto) Gonzales # (Auto) Eos # (Auto) Baso # (Auto) Immature Gran # (Auto) Absolute Nucleated RBC Nucleated RBC % (auto) RBC Morphology Polychromasia ESR PT INR APTT PTT Ratio Fibrinogen Heparin Anti-Xa, LM Wt Sample Site R Radial POC pH 7.31 L POC pCO2 27 L POC pO2 215 H POC HCO3 14 L POC Total CO2 14 L POC Base Excess -13.0 L ABG pH (Temp Correct) 7.309 L ABG pCO2 (Temp Corrct 27 L POC ABG pO2 at Pt Temp 215 POC ABG O2 Sat 100.0 H Kodak Test Pass VBG pH O2 Delivery Device BIPAP POC O2 Rate 16 POC FiO2 50 IPAP 14 POC Sodium 142 Sodium POC Potassium 4.9 Potassium Chloride Carbon Dioxide Anion Gap BUN Creatinine Est Cr Clr Drug Dosing Est GFR ( Amer) Est GFR (Non-Af Amer) BUN/Creatinine Ratio Glucose POC Glucose 128 H Osmolality Lactate Calcium Phosphorus Magnesium Total Bilirubin AST ALT Alkaline Phosphatase Total Creatine Kinase Troponin I 0.053 H* C-Reactive Protein Total Protein Albumin Globulin Albumin/Globulin Ratio Triglycerides Cholesterol LDL Cholesterol, Calc VLDL Cholesterol, Calc HDL Cholesterol Cholesterol/HDL Ratio Beta-Hydroxybutyric Acd TSH Urine Osmolality Ur Random Creatinine Ur Random Sodium Ur Random Potassium Ur Random Chloride Ur Random Uric Acid Nasal Screen MRSA (PCR) Stool Occult Bld Scrn Random Vancomycin Methotrexate Salicylates Urine Opiates Screen U Codeine Confrm GC/MS Ur Morphine (GC/MS) Ur Hydrocodone (GC/MS) Ur Norhydrocodone Ur Noroxycodone Urine Oxycodone (GC/MS) U Oxymorphone GC/MS Ur Methadone, Qual Ur Hydromorphone (GC/MS) Acetaminophen Urine Barbiturates Ur Phencyclidine (PCP) U Amphetamin/Meth Scrn Urine MDEA MDMA (Ecstasy) Screen MDMA Urine MDMA U Benzodiazepines Scrn Ur Cocaine Metabolite U Marijuana (THC) Screen U Marijuana THC Carboxy Drug Screen Comment Ethylene Glycol Volat Analys Perform On Ethyl Alcohol mg/dL Methyl Alcohol Level SARS-CoV-2 (PCR) Blood Type Blood Type Recheck Antibody Screen 02/17/21 02/17/21 02/17/21 17:26 17:26 17:26 WBC 30.31 H* RBC 2.81 L Hgb 9.6 L POC Hgb Hct 30.2 L POC Hct MCV 107.5 H MCH 34.2 H MCHC 31.8 L RDW Std Deviation 59.3 H RDW Coeff of Melba 15.2 H Plt Count 296 MPV 11.2 H Immature Gran % (Auto) 3.8 Neut % (Auto) 90.6 Lymph % (Auto) 3.5 Gonzales % (Auto) 2.0 Eos % (Auto) 0.0 Baso % (Auto) 0.1 Neut # (Auto) 27.44 H Lymph # (Auto) 1.05 L Gonzales # (Auto) 0.62 H Eos # (Auto) 0.01 Baso # (Auto) 0.04 Immature Gran # (Auto) 1.15 H Absolute Nucleated RBC Nucleated RBC % (auto) RBC Morphology Polychromasia 1+ ESR PT INR APTT PTT Ratio Fibrinogen Heparin Anti-Xa, LM Wt Sample Site POC pH POC pCO2 POC pO2 POC HCO3 POC Total CO2 POC Base Excess ABG pH (Temp Correct) ABG pCO2 (Temp Corrct POC ABG pO2 at Pt Temp POC ABG O2 Sat Kodak Test VBG pH O2 Delivery Device POC O2 Rate POC FiO2 IPAP POC Sodium Sodium 146 H POC Potassium Potassium 5.2 H Chloride 110 H Carbon Dioxide 17 L Anion Gap 19.0 H BUN 63 H Creatinine 1.75 H Est Cr Clr Drug Dosing 48.5 Est GFR ( Amer) 42.9 Est GFR (Non-Af Amer) 37.0 BUN/Creatinine Ratio 35.7 H Glucose 171 H POC Glucose Osmolality Lactate Calcium 8.2 L Phosphorus Magnesium Total Bilirubin 1.0 AST 15 ALT 21 Alkaline Phosphatase 49 Total Creatine Kinase 56 Troponin I C-Reactive Protein Total Protein 5.4 L Albumin 2.5 L Globulin 2.9 Albumin/Globulin Ratio 0.9 Triglycerides Cholesterol LDL Cholesterol, Calc VLDL Cholesterol, Calc HDL Cholesterol Cholesterol/HDL Ratio Beta-Hydroxybutyric Acd TSH 1.390 Urine Osmolality Ur Random Creatinine Ur Random Sodium Ur Random Potassium Ur Random Chloride Ur Random Uric Acid Nasal Screen MRSA (PCR) Stool Occult Bld Scrn Random Vancomycin Methotrexate Cancelled Salicylates Urine Opiates Screen U Codeine Confrm GC/MS Ur Morphine (GC/MS) Ur Hydrocodone (GC/MS) Ur Norhydrocodone Ur Noroxycodone Urine Oxycodone (GC/MS) U Oxymorphone GC/MS Ur Methadone, Qual Ur Hydromorphone (GC/MS) Acetaminophen Urine Barbiturates Ur Phencyclidine (PCP) U Amphetamin/Meth Scrn Urine MDEA MDMA (Ecstasy) Screen MDMA Urine MDMA U Benzodiazepines Scrn Ur Cocaine Metabolite U Marijuana (THC) Screen U Marijuana THC Carboxy Drug Screen Comment Ethylene Glycol Volat Analys Perform On Ethyl Alcohol mg/dL Methyl Alcohol Level SARS-CoV-2 (PCR) Blood Type Blood Type Recheck Antibody Screen 02/17/21 02/17/21 02/17/21 17:26 18:21 18:30 WBC RBC Hgb POC Hgb Hct POC Hct MCV MCH MCHC RDW Std Deviation RDW Coeff of Melba Plt Count MPV Immature Gran % (Auto) Neut % (Auto) Lymph % (Auto) Gonzales % (Auto) Eos % (Auto) Baso % (Auto) Neut # (Auto) Lymph # (Auto) Gonzales # (Auto) Eos # (Auto) Baso # (Auto) Immature Gran # (Auto) Absolute Nucleated RBC Nucleated RBC % (auto) RBC Morphology Polychromasia ESR PT INR APTT PTT Ratio Fibrinogen Heparin Anti-Xa, LM Wt Sample Site POC pH POC pCO2 POC pO2 POC HCO3 POC Total CO2 POC Base Excess ABG pH (Temp Correct) ABG pCO2 (Temp Corrct POC ABG pO2 at Pt Temp POC ABG O2 Sat Kodak Test VBG pH O2 Delivery Device POC O2 Rate POC FiO2 IPAP POC Sodium Sodium POC Potassium Potassium Chloride Carbon Dioxide Anion Gap BUN Creatinine Est Cr Clr Drug Dosing Est GFR ( Amer) Est GFR (Non-Af Amer) BUN/Creatinine Ratio Glucose POC Glucose Osmolality 338 H Lactate Calcium Phosphorus Magnesium Total Bilirubin AST ALT Alkaline Phosphatase Total Creatine Kinase Troponin I C-Reactive Protein Total Protein Albumin Globulin Albumin/Globulin Ratio Triglycerides Cholesterol LDL Cholesterol, Calc VLDL Cholesterol, Calc HDL Cholesterol Cholesterol/HDL Ratio Beta-Hydroxybutyric Acd TSH Urine Osmolality 547 Ur Random Creatinine Ur Random Sodium Ur Random Potassium Ur Random Chloride Ur Random Uric Acid Nasal Screen MRSA (PCR) Stool Occult Bld Scrn Random Vancomycin Methotrexate Salicylates Urine Opiates Screen U Codeine Confrm GC/MS Ur Morphine (GC/MS) Ur Hydrocodone (GC/MS) Ur Norhydrocodone Ur Noroxycodone Urine Oxycodone (GC/MS) U Oxymorphone GC/MS Ur Methadone, Qual Ur Hydromorphone (GC/MS) Acetaminophen Urine Barbiturates Ur Phencyclidine (PCP) U Amphetamin/Meth Scrn Urine MDEA MDMA (Ecstasy) Screen MDMA Urine MDMA U Benzodiazepines Scrn Ur Cocaine Metabolite U Marijuana (THC) Screen U Marijuana THC Carboxy Drug Screen Comment Ethylene Glycol Volat Analys Perform On Ethyl Alcohol mg/dL < 3.0 Methyl Alcohol Level SARS-CoV-2 (PCR) Blood Type Blood Type Recheck Antibody Screen 02/17/21 02/17/21 02/17/21 18:30 18:30 18:30 WBC RBC Hgb POC Hgb Hct POC Hct MCV MCH MCHC RDW Std Deviation RDW Coeff of Melba Plt Count MPV Immature Gran % (Auto) Neut % (Auto) Lymph % (Auto) Gonzales % (Auto) Eos % (Auto) Baso % (Auto) Neut # (Auto) Lymph # (Auto) Gonzales # (Auto) Eos # (Auto) Baso # (Auto) Immature Gran # (Auto) Absolute Nucleated RBC Nucleated RBC % (auto) RBC Morphology Polychromasia ESR PT INR APTT PTT Ratio Fibrinogen Heparin Anti-Xa, LM Wt Sample Site POC pH POC pCO2 POC pO2 POC HCO3 POC Total CO2 POC Base Excess ABG pH (Temp Correct) ABG pCO2 (Temp Corrct POC ABG pO2 at Pt Temp POC ABG O2 Sat Kodak Test VBG pH O2 Delivery Device POC O2 Rate POC FiO2 IPAP POC Sodium Sodium POC Potassium Potassium Chloride Carbon Dioxide Anion Gap BUN Creatinine Est Cr Clr Drug Dosing Est GFR ( Amer) Est GFR (Non-Af Amer) BUN/Creatinine Ratio Glucose POC Glucose Osmolality Lactate Calcium Phosphorus Magnesium Total Bilirubin AST ALT Alkaline Phosphatase Total Creatine Kinase Troponin I C-Reactive Protein Total Protein Albumin Globulin Albumin/Globulin Ratio Triglycerides Cholesterol LDL Cholesterol, Calc VLDL Cholesterol, Calc HDL Cholesterol Cholesterol/HDL Ratio Beta-Hydroxybutyric Acd TSH Urine Osmolality Ur Random Creatinine 41.9 Ur Random Sodium 33 Ur Random Potassium 49.6 Ur Random Chloride 25 Ur Random Uric Acid 25.1 Nasal Screen MRSA (PCR) Stool Occult Bld Scrn Random Vancomycin Methotrexate Salicylates Urine Opiates Screen Pos H U Codeine Confrm GC/MS Pending Ur Morphine (GC/MS) Pending Ur Hydrocodone (GC/MS) Pending Ur Norhydrocodone Pending Ur Noroxycodone Pending Urine Oxycodone (GC/MS) Pending U Oxymorphone GC/MS Pending Ur Methadone, Qual Neg Ur Hydromorphone (GC/MS) Pending Acetaminophen Urine Barbiturates Neg Ur Phencyclidine (PCP) Neg U Amphetamin/Meth Scrn Neg Urine MDEA Pending MDMA (Ecstasy) Screen Pos H MDMA Pending Urine MDMA Pending U Benzodiazepines Scrn Neg Ur Cocaine Metabolite Neg U Marijuana (THC) Screen Pos H U Marijuana THC Carboxy Pending Drug Screen Comment Pending Ethylene Glycol Volat Analys Perform On Ethyl Alcohol mg/dL Methyl Alcohol Level SARS-CoV-2 (PCR) Blood Type Blood Type Recheck Antibody Screen 02/17/21 02/17/21 02/17/21 19:49 19:49 20:21 WBC RBC Hgb POC Hgb Hct POC Hct MCV MCH MCHC RDW Std Deviation RDW Coeff of Melba Plt Count MPV Immature Gran % (Auto) Neut % (Auto) Lymph % (Auto) Gonzales % (Auto) Eos % (Auto) Baso % (Auto) Neut # (Auto) Lymph # (Auto) Gonzales # (Auto) Eos # (Auto) Baso # (Auto) Immature Gran # (Auto) Absolute Nucleated RBC Nucleated RBC % (auto) RBC Morphology Polychromasia ESR PT INR APTT PTT Ratio Fibrinogen Heparin Anti-Xa, LM Wt Sample Site POC pH POC pCO2 POC pO2 POC HCO3 POC Total CO2 POC Base Excess ABG pH (Temp Correct) ABG pCO2 (Temp Corrct POC ABG pO2 at Pt Temp POC ABG O2 Sat Kodak Test VBG pH O2 Delivery Device POC O2 Rate POC FiO2 IPAP POC Sodium Sodium POC Potassium Potassium Chloride Carbon Dioxide Anion Gap BUN Creatinine Est Cr Clr Drug Dosing Est GFR ( Amer) Est GFR (Non-Af Amer) BUN/Creatinine Ratio Glucose POC Glucose Osmolality Lactate 13.4 H* Calcium Phosphorus Magnesium Total Bilirubin AST ALT Alkaline Phosphatase Total Creatine Kinase Troponin I C-Reactive Protein Total Protein Albumin Globulin Albumin/Globulin Ratio Triglycerides Cholesterol LDL Cholesterol, Calc VLDL Cholesterol, Calc HDL Cholesterol Cholesterol/HDL Ratio Beta-Hydroxybutyric Acd 5.43 H TSH Urine Osmolality Ur Random Creatinine Ur Random Sodium Ur Random Potassium Ur Random Chloride Ur Random Uric Acid Nasal Screen MRSA (PCR) Negative Stool Occult Bld Scrn Random Vancomycin Methotrexate Salicylates Urine Opiates Screen U Codeine Confrm GC/MS Ur Morphine (GC/MS) Ur Hydrocodone (GC/MS) Ur Norhydrocodone Ur Noroxycodone Urine Oxycodone (GC/MS) U Oxymorphone GC/MS Ur Methadone, Qual Ur Hydromorphone (GC/MS) Acetaminophen Urine Barbiturates Ur Phencyclidine (PCP) U Amphetamin/Meth Scrn Urine MDEA MDMA (Ecstasy) Screen MDMA Urine MDMA U Benzodiazepines Scrn Ur Cocaine Metabolite U Marijuana (THC) Screen U Marijuana THC Carboxy Drug Screen Comment Ethylene Glycol Volat Analys Perform On Ethyl Alcohol mg/dL Methyl Alcohol Level SARS-CoV-2 (PCR) Blood Type Blood Type Recheck Antibody Screen 02/17/21 02/17/21 02/17/21 20:56 21:10 21:10 WBC RBC Hgb POC Hgb Hct POC Hct MCV MCH MCHC RDW Std Deviation RDW Coeff of Melba Plt Count MPV Immature Gran % (Auto) Neut % (Auto) Lymph % (Auto) Gonzales % (Auto) Eos % (Auto) Baso % (Auto) Neut # (Auto) Lymph # (Auto) Gonzales # (Auto) Eos # (Auto) Baso # (Auto) Immature Gran # (Auto) Absolute Nucleated RBC Nucleated RBC % (auto) RBC Morphology Polychromasia ESR PT INR APTT PTT Ratio Fibrinogen Heparin Anti-Xa, LM Wt Sample Site POC pH POC pCO2 POC pO2 POC HCO3 POC Total CO2 POC Base Excess ABG pH (Temp Correct) ABG pCO2 (Temp Corrct POC ABG pO2 at Pt Temp POC ABG O2 Sat Kodak Test VBG pH O2 Delivery Device POC O2 Rate POC FiO2 IPAP POC Sodium Sodium 149 H POC Potassium Potassium 5.1 Chloride 112 H Carbon Dioxide 22 Anion Gap 15.0 H BUN 69 H Creatinine 1.77 H Est Cr Clr Drug Dosing 48.0 Est GFR ( Amer) 42.3 Est GFR (Non-Af Amer) 36.5 BUN/Creatinine Ratio 39.0 H Glucose 112 H POC Glucose 115 H Osmolality Lactate Calcium 7.8 L Phosphorus 1.4 L* Magnesium 2.0 Total Bilirubin AST ALT Alkaline Phosphatase Total Creatine Kinase Troponin I Cancelled 0.065 H* C-Reactive Protein Total Protein Albumin Globulin Albumin/Globulin Ratio Triglycerides Cholesterol LDL Cholesterol, Calc VLDL Cholesterol, Calc HDL Cholesterol Cholesterol/HDL Ratio Beta-Hydroxybutyric Acd TSH Urine Osmolality Ur Random Creatinine Ur Random Sodium Ur Random Potassium Ur Random Chloride Ur Random Uric Acid Nasal Screen MRSA (PCR) Stool Occult Bld Scrn Random Vancomycin Methotrexate Salicylates Urine Opiates Screen U Codeine Confrm GC/MS Ur Morphine (GC/MS) Ur Hydrocodone (GC/MS) Ur Norhydrocodone Ur Noroxycodone Urine Oxycodone (GC/MS) U Oxymorphone GC/MS Ur Methadone, Qual Ur Hydromorphone (GC/MS) Acetaminophen Urine Barbiturates Ur Phencyclidine (PCP) U Amphetamin/Meth Scrn Urine MDEA MDMA (Ecstasy) Screen MDMA Urine MDMA U Benzodiazepines Scrn Ur Cocaine Metabolite U Marijuana (THC) Screen U Marijuana THC Carboxy Drug Screen Comment Ethylene Glycol Volat Analys Perform On Ethyl Alcohol mg/dL Methyl Alcohol Level SARS-CoV-2 (PCR) Blood Type Blood Type Recheck Antibody Screen 02/17/21 02/17/21 02/17/21 21:10 22:17 22:53 WBC RBC Hgb POC Hgb Hct POC Hct MCV MCH MCHC RDW Std Deviation RDW Coeff of Melba Plt Count MPV Immature Gran % (Auto) Neut % (Auto) Lymph % (Auto) Gonzales % (Auto) Eos % (Auto) Baso % (Auto) Neut # (Auto) Lymph # (Auto) Gonzales # (Auto) Eos # (Auto) Baso # (Auto) Immature Gran # (Auto) Absolute Nucleated RBC Nucleated RBC % (auto) RBC Morphology Polychromasia ESR PT INR APTT PTT Ratio Fibrinogen Heparin Anti-Xa, LM Wt Sample Site POC pH POC pCO2 POC pO2 POC HCO3 POC Total CO2 POC Base Excess ABG pH (Temp Correct) ABG pCO2 (Temp Corrct POC ABG pO2 at Pt Temp POC ABG O2 Sat Kodak Test VBG pH 7.29 L O2 Delivery Device POC O2 Rate POC FiO2 IPAP POC Sodium Sodium POC Potassium Potassium Chloride Carbon Dioxide Anion Gap BUN Creatinine Est Cr Clr Drug Dosing Est GFR ( Amer) Est GFR (Non-Af Amer) BUN/Creatinine Ratio Glucose POC Glucose 169 H Osmolality Lactate 11.4 H* Calcium Phosphorus Magnesium Total Bilirubin AST ALT Alkaline Phosphatase Total Creatine Kinase Troponin I C-Reactive Protein Total Protein Albumin Globulin Albumin/Globulin Ratio Triglycerides Cholesterol LDL Cholesterol, Calc VLDL Cholesterol, Calc HDL Cholesterol Cholesterol/HDL Ratio Beta-Hydroxybutyric Acd TSH Urine Osmolality Ur Random Creatinine Ur Random Sodium Ur Random Potassium Ur Random Chloride Ur Random Uric Acid Nasal Screen MRSA (PCR) Stool Occult Bld Scrn Random Vancomycin Methotrexate Salicylates Urine Opiates Screen U Codeine Confrm GC/MS Ur Morphine (GC/MS) Ur Hydrocodone (GC/MS) Ur Norhydrocodone Ur Noroxycodone Urine Oxycodone (GC/MS) U Oxymorphone GC/MS Ur Methadone, Qual Ur Hydromorphone (GC/MS) Acetaminophen Urine Barbiturates Ur Phencyclidine (PCP) U Amphetamin/Meth Scrn Urine MDEA MDMA (Ecstasy) Screen MDMA Urine MDMA U Benzodiazepines Scrn Ur Cocaine Metabolite U Marijuana (THC) Screen U Marijuana THC Carboxy Drug Screen Comment Ethylene Glycol Volat Analys Perform On Ethyl Alcohol mg/dL Methyl Alcohol Level SARS-CoV-2 (PCR) Blood Type Blood Type Recheck Antibody Screen 02/17/21 02/17/21 02/18/21 23:03 23:59 00:56 WBC RBC Hgb POC Hgb Hct POC Hct MCV MCH MCHC RDW Std Deviation RDW Coeff of Melba Plt Count MPV Immature Gran % (Auto) Neut % (Auto) Lymph % (Auto) Gonzales % (Auto) Eos % (Auto) Baso % (Auto) Neut # (Auto) Lymph # (Auto) Gonzales # (Auto) Eos # (Auto) Baso # (Auto) Immature Gran # (Auto) Absolute Nucleated RBC Nucleated RBC % (auto) RBC Morphology Polychromasia ESR PT INR APTT PTT Ratio Fibrinogen Heparin Anti-Xa, LM Wt Sample Site POC pH POC pCO2 POC pO2 POC HCO3 POC Total CO2 POC Base Excess ABG pH (Temp Correct) ABG pCO2 (Temp Corrct POC ABG pO2 at Pt Temp POC ABG O2 Sat Kodak Test VBG pH O2 Delivery Device POC O2 Rate POC FiO2 IPAP POC Sodium Sodium POC Potassium Potassium Chloride Carbon Dioxide Anion Gap BUN Creatinine Est Cr Clr Drug Dosing Est GFR ( Amer) Est GFR (Non-Af Amer) BUN/Creatinine Ratio Glucose POC Glucose 169 H 163 H 144 H Osmolality Lactate Calcium Phosphorus Magnesium Total Bilirubin AST ALT Alkaline Phosphatase Total Creatine Kinase Troponin I C-Reactive Protein Total Protein Albumin Globulin Albumin/Globulin Ratio Triglycerides Cholesterol LDL Cholesterol, Calc VLDL Cholesterol, Calc HDL Cholesterol Cholesterol/HDL Ratio Beta-Hydroxybutyric Acd TSH Urine Osmolality Ur Random Creatinine Ur Random Sodium Ur Random Potassium Ur Random Chloride Ur Random Uric Acid Nasal Screen MRSA (PCR) Stool Occult Bld Scrn Random Vancomycin Methotrexate Salicylates Urine Opiates Screen U Codeine Confrm GC/MS Ur Morphine (GC/MS) Ur Hydrocodone (GC/MS) Ur Norhydrocodone Ur Noroxycodone Urine Oxycodone (GC/MS) U Oxymorphone GC/MS Ur Methadone, Qual Ur Hydromorphone (GC/MS) Acetaminophen Urine Barbiturates Ur Phencyclidine (PCP) U Amphetamin/Meth Scrn Urine MDEA MDMA (Ecstasy) Screen MDMA Urine MDMA U Benzodiazepines Scrn Ur Cocaine Metabolite U Marijuana (THC) Screen U Marijuana THC Carboxy Drug Screen Comment Ethylene Glycol Volat Analys Perform On Ethyl Alcohol mg/dL Methyl Alcohol Level SARS-CoV-2 (PCR) Blood Type Blood Type Recheck Antibody Screen 02/18/21 02/18/21 02/18/21 01:12 01:12 02:00 WBC RBC Hgb POC Hgb Hct POC Hct MCV MCH MCHC RDW Std Deviation RDW Coeff of Melba Plt Count MPV Immature Gran % (Auto) Neut % (Auto) Lymph % (Auto) Gonzales % (Auto) Eos % (Auto) Baso % (Auto) Neut # (Auto) Lymph # (Auto) Gonzales # (Auto) Eos # (Auto) Baso # (Auto) Immature Gran # (Auto) Absolute Nucleated RBC Nucleated RBC % (auto) RBC Morphology Polychromasia ESR PT INR APTT PTT Ratio Fibrinogen Heparin Anti-Xa, LM Wt Sample Site POC pH POC pCO2 POC pO2 POC HCO3 POC Total CO2 POC Base Excess ABG pH (Temp Correct) ABG pCO2 (Temp Corrct POC ABG pO2 at Pt Temp POC ABG O2 Sat Kodak Test VBG pH 7.30 L O2 Delivery Device POC O2 Rate POC FiO2 IPAP POC Sodium Sodium 148 H POC Potassium Potassium 4.8 Chloride 114 H Carbon Dioxide 22 Anion Gap 12.0 H BUN 64 H Creatinine 1.71 H Est Cr Clr Drug Dosing 49.6 Est GFR ( Amer) 44.1 Est GFR (Non-Af Amer) 38.0 BUN/Creatinine Ratio 37.7 H Glucose 126 H POC Glucose 135 H Osmolality Lactate Calcium 8.1 L Phosphorus 0.8 L* Magnesium 2.0 Total Bilirubin AST ALT Alkaline Phosphatase Total Creatine Kinase Troponin I C-Reactive Protein Total Protein Albumin Globulin Albumin/Globulin Ratio Triglycerides Cholesterol LDL Cholesterol, Calc VLDL Cholesterol, Calc HDL Cholesterol Cholesterol/HDL Ratio Beta-Hydroxybutyric Acd TSH Urine Osmolality Ur Random Creatinine Ur Random Sodium Ur Random Potassium Ur Random Chloride Ur Random Uric Acid Nasal Screen MRSA (PCR) Stool Occult Bld Scrn Random Vancomycin Methotrexate Salicylates Urine Opiates Screen U Codeine Confrm GC/MS Ur Morphine (GC/MS) Ur Hydrocodone (GC/MS) Ur Norhydrocodone Ur Noroxycodone Urine Oxycodone (GC/MS) U Oxymorphone GC/MS Ur Methadone, Qual Ur Hydromorphone (GC/MS) Acetaminophen Urine Barbiturates Ur Phencyclidine (PCP) U Amphetamin/Meth Scrn Urine MDEA MDMA (Ecstasy) Screen MDMA Urine MDMA U Benzodiazepines Scrn Ur Cocaine Metabolite U Marijuana (THC) Screen U Marijuana THC Carboxy Drug Screen Comment Ethylene Glycol Volat Analys Perform On Ethyl Alcohol mg/dL Methyl Alcohol Level SARS-CoV-2 (PCR) Blood Type Blood Type Recheck Antibody Screen 02/18/21 02/18/21 02/18/21 02:26 02:58 03:59 WBC RBC Hgb POC Hgb Hct POC Hct MCV MCH MCHC RDW Std Deviation RDW Coeff of Melba Plt Count MPV Immature Gran % (Auto) Neut % (Auto) Lymph % (Auto) Gonzales % (Auto) Eos % (Auto) Baso % (Auto) Neut # (Auto) Lymph # (Auto) Gonzales # (Auto) Eos # (Auto) Baso # (Auto) Immature Gran # (Auto) Absolute Nucleated RBC Nucleated RBC % (auto) RBC Morphology Polychromasia ESR PT INR APTT PTT Ratio Fibrinogen Heparin Anti-Xa, LM Wt Sample Site POC pH POC pCO2 POC pO2 POC HCO3 POC Total CO2 POC Base Excess ABG pH (Temp Correct) ABG pCO2 (Temp Corrct POC ABG pO2 at Pt Temp POC ABG O2 Sat Kodak Test VBG pH O2 Delivery Device POC O2 Rate POC FiO2 IPAP POC Sodium Sodium POC Potassium Potassium Chloride Carbon Dioxide Anion Gap BUN Creatinine Est Cr Clr Drug Dosing Est GFR ( Amer) Est GFR (Non-Af Amer) BUN/Creatinine Ratio Glucose POC Glucose 128 H 122 H Osmolality Lactate Calcium Phosphorus Magnesium Total Bilirubin AST ALT Alkaline Phosphatase Total Creatine Kinase Troponin I C-Reactive Protein Total Protein Albumin Globulin Albumin/Globulin Ratio Triglycerides Cholesterol LDL Cholesterol, Calc VLDL Cholesterol, Calc HDL Cholesterol Cholesterol/HDL Ratio Beta-Hydroxybutyric Acd TSH Urine Osmolality Ur Random Creatinine Ur Random Sodium Ur Random Potassium Ur Random Chloride Ur Random Uric Acid Nasal Screen MRSA (PCR) Stool Occult Bld Scrn Positive A Random Vancomycin Methotrexate Salicylates Urine Opiates Screen U Codeine Confrm GC/MS Ur Morphine (GC/MS) Ur Hydrocodone (GC/MS) Ur Norhydrocodone Ur Noroxycodone Urine Oxycodone (GC/MS) U Oxymorphone GC/MS Ur Methadone, Qual Ur Hydromorphone (GC/MS) Acetaminophen Urine Barbiturates Ur Phencyclidine (PCP) U Amphetamin/Meth Scrn Urine MDEA MDMA (Ecstasy) Screen MDMA Urine MDMA U Benzodiazepines Scrn Ur Cocaine Metabolite U Marijuana (THC) Screen U Marijuana THC Carboxy Drug Screen Comment Ethylene Glycol Volat Analys Perform On Ethyl Alcohol mg/dL Methyl Alcohol Level SARS-CoV-2 (PCR) Blood Type Blood Type Recheck Antibody Screen 02/18/21 02/18/21 02/18/21 04:34 04:34 04:37 WBC 24.91 H RBC 2.57 L Hgb 8.5 L POC Hgb Hct 25.9 L POC Hct MCV 100.8 H D MCH 33.1 MCHC 32.8 RDW Std Deviation 55.4 H RDW Coeff of Melba 15.4 H Plt Count 233 MPV 10.1 Immature Gran % (Auto) 1.4 Neut % (Auto) 89.3 Lymph % (Auto) 5.3 Gonzales % (Auto) 4.0 Eos % (Auto) 0.0 Baso % (Auto) 0.0 Neut # (Auto) 22.23 H Lymph # (Auto) 1.32 Gonzales # (Auto) 0.99 H Eos # (Auto) 0.00 Baso # (Auto) 0.01 Immature Gran # (Auto) 0.36 H Absolute Nucleated RBC 0.06 H Nucleated RBC % (auto) 0.3 RBC Morphology Unremarkable Polychromasia ESR PT INR APTT PTT Ratio Fibrinogen Heparin Anti-Xa, LM Wt Sample Site POC pH POC pCO2 POC pO2 POC HCO3 POC Total CO2 POC Base Excess ABG pH (Temp Correct) ABG pCO2 (Temp Corrct POC ABG pO2 at Pt Temp POC ABG O2 Sat Kodak Test VBG pH 7.44 H O2 Delivery Device POC O2 Rate POC FiO2 IPAP POC Sodium Sodium POC Potassium Potassium Chloride Carbon Dioxide Anion Gap BUN Creatinine Est Cr Clr Drug Dosing Est GFR ( Amer) Est GFR (Non-Af Amer) BUN/Creatinine Ratio Glucose POC Glucose Osmolality Lactate Calcium Phosphorus Magnesium Total Bilirubin AST ALT Alkaline Phosphatase Total Creatine Kinase Troponin I 0.158 H* C-Reactive Protein Total Protein Albumin Globulin Albumin/Globulin Ratio Triglycerides Cholesterol LDL Cholesterol, Calc VLDL Cholesterol, Calc HDL Cholesterol Cholesterol/HDL Ratio Beta-Hydroxybutyric Acd TSH Urine Osmolality Ur Random Creatinine Ur Random Sodium Ur Random Potassium Ur Random Chloride Ur Random Uric Acid Nasal Screen MRSA (PCR) Stool Occult Bld Scrn Random Vancomycin Methotrexate Salicylates Urine Opiates Screen U Codeine Confrm GC/MS Ur Morphine (GC/MS) Ur Hydrocodone (GC/MS) Ur Norhydrocodone Ur Noroxycodone Urine Oxycodone (GC/MS) U Oxymorphone GC/MS Ur Methadone, Qual Ur Hydromorphone (GC/MS) Acetaminophen Urine Barbiturates Ur Phencyclidine (PCP) U Amphetamin/Meth Scrn Urine MDEA MDMA (Ecstasy) Screen MDMA Urine MDMA U Benzodiazepines Scrn Ur Cocaine Metabolite U Marijuana (THC) Screen U Marijuana THC Carboxy Drug Screen Comment Ethylene Glycol Volat Analys Perform On Ethyl Alcohol mg/dL Methyl Alcohol Level SARS-CoV-2 (PCR) Blood Type Blood Type Recheck Antibody Screen 02/18/21 02/18/21 02/18/21 04:37 04:37 04:44 WBC RBC Hgb POC Hgb Hct POC Hct MCV MCH MCHC RDW Std Deviation RDW Coeff of Melba Plt Count MPV Immature Gran % (Auto) Neut % (Auto) Lymph % (Auto) Gonzales % (Auto) Eos % (Auto) Baso % (Auto) Neut # (Auto) Lymph # (Auto) Gonzales # (Auto) Eos # (Auto) Baso # (Auto) Immature Gran # (Auto) Absolute Nucleated RBC Nucleated RBC % (auto) RBC Morphology Polychromasia ESR PT INR APTT PTT Ratio Fibrinogen Heparin Anti-Xa, LM Wt Sample Site POC pH POC pCO2 POC pO2 POC HCO3 POC Total CO2 POC Base Excess ABG pH (Temp Correct) ABG pCO2 (Temp Corrct POC ABG pO2 at Pt Temp POC ABG O2 Sat Kodak Test VBG pH O2 Delivery Device POC O2 Rate POC FiO2 IPAP POC Sodium Sodium 146 H POC Potassium Potassium 4.0 D Chloride 115 H Carbon Dioxide 22 Anion Gap 9.0 BUN 64 H Creatinine 1.71 H Est Cr Clr Drug Dosing 49.6 Est GFR ( Amer) 44.1 Est GFR (Non-Af Amer) 38.0 BUN/Creatinine Ratio 37.2 H Glucose 113 H POC Glucose Osmolality Lactate 6.7 H* Calcium 7.7 L Phosphorus 0.9 L* Magnesium 1.8 Total Bilirubin AST ALT Alkaline Phosphatase Total Creatine Kinase Troponin I C-Reactive Protein Total Protein Albumin Globulin Albumin/Globulin Ratio Triglycerides 157 H Cholesterol 104 LDL Cholesterol, Calc 35 VLDL Cholesterol, Calc 31 HDL Cholesterol 38 Cholesterol/HDL Ratio 3 Beta-Hydroxybutyric Acd 4.57 H TSH Urine Osmolality Ur Random Creatinine Ur Random Sodium Ur Random Potassium Ur Random Chloride Ur Random Uric Acid Nasal Screen MRSA (PCR) Stool Occult Bld Scrn Random Vancomycin 13.2 Methotrexate Salicylates Urine Opiates Screen U Codeine Confrm GC/MS Ur Morphine (GC/MS) Ur Hydrocodone (GC/MS) Ur Norhydrocodone Ur Noroxycodone Urine Oxycodone (GC/MS) U Oxymorphone GC/MS Ur Methadone, Qual Ur Hydromorphone (GC/MS) Acetaminophen Urine Barbiturates Ur Phencyclidine (PCP) U Amphetamin/Meth Scrn Urine MDEA MDMA (Ecstasy) Screen MDMA Urine MDMA U Benzodiazepines Scrn Ur Cocaine Metabolite U Marijuana (THC) Screen U Marijuana THC Carboxy Drug Screen Comment Ethylene Glycol Volat Analys Perform On Ethyl Alcohol mg/dL Methyl Alcohol Level SARS-CoV-2 (PCR) Blood Type Blood Type Recheck Antibody Screen 02/18/21 02/18/21 02/18/21 04:44 05:05 06:05 WBC RBC Hgb POC Hgb Hct POC Hct MCV MCH MCHC RDW Std Deviation RDW Coeff of Melba Plt Count MPV Immature Gran % (Auto) Neut % (Auto) Lymph % (Auto) Gonzales % (Auto) Eos % (Auto) Baso % (Auto) Neut # (Auto) Lymph # (Auto) Gonzales # (Auto) Eos # (Auto) Baso # (Auto) Immature Gran # (Auto) Absolute Nucleated RBC Nucleated RBC % (auto) RBC Morphology Polychromasia ESR PT Cancelled INR Cancelled APTT Cancelled PTT Ratio Cancelled Fibrinogen Heparin Anti-Xa, LM Wt Sample Site POC pH POC pCO2 POC pO2 POC HCO3 POC Total CO2 POC Base Excess ABG pH (Temp Correct) ABG pCO2 (Temp Corrct POC ABG pO2 at Pt Temp POC ABG O2 Sat Kodak Test VBG pH O2 Delivery Device POC O2 Rate POC FiO2 IPAP POC Sodium Sodium POC Potassium Potassium Chloride Carbon Dioxide Anion Gap BUN Creatinine Est Cr Clr Drug Dosing Est GFR ( Amer) Est GFR (Non-Af Amer) BUN/Creatinine Ratio Glucose POC Glucose 128 H 137 H Osmolality Lactate Calcium Phosphorus Magnesium Total Bilirubin AST ALT Alkaline Phosphatase Total Creatine Kinase Troponin I C-Reactive Protein Total Protein Albumin Globulin Albumin/Globulin Ratio Triglycerides Cholesterol LDL Cholesterol, Calc VLDL Cholesterol, Calc HDL Cholesterol Cholesterol/HDL Ratio Beta-Hydroxybutyric Acd TSH Urine Osmolality Ur Random Creatinine Ur Random Sodium Ur Random Potassium Ur Random Chloride Ur Random Uric Acid Nasal Screen MRSA (PCR) Stool Occult Bld Scrn Random Vancomycin Methotrexate Salicylates Urine Opiates Screen U Codeine Confrm GC/MS Ur Morphine (GC/MS) Ur Hydrocodone (GC/MS) Ur Norhydrocodone Ur Noroxycodone Urine Oxycodone (GC/MS) U Oxymorphone GC/MS Ur Methadone, Qual Ur Hydromorphone (GC/MS) Acetaminophen Urine Barbiturates Ur Phencyclidine (PCP) U Amphetamin/Meth Scrn Urine MDEA MDMA (Ecstasy) Screen MDMA Urine MDMA U Benzodiazepines Scrn Ur Cocaine Metabolite U Marijuana (THC) Screen U Marijuana THC Carboxy Drug Screen Comment Ethylene Glycol Volat Analys Perform On Ethyl Alcohol mg/dL Methyl Alcohol Level SARS-CoV-2 (PCR) Blood Type Blood Type Recheck Antibody Screen 02/18/21 02/18/21 02/18/21 06:57 07:01 07:56 WBC RBC Hgb POC Hgb Hct POC Hct MCV MCH MCHC RDW Std Deviation RDW Coeff of Melba Plt Count MPV Immature Gran % (Auto) Neut % (Auto) Lymph % (Auto) Gonzales % (Auto) Eos % (Auto) Baso % (Auto) Neut # (Auto) Lymph # (Auto) Gonzales # (Auto) Eos # (Auto) Baso # (Auto) Immature Gran # (Auto) Absolute Nucleated RBC Nucleated RBC % (auto) RBC Morphology Polychromasia ESR PT Cancelled INR Cancelled APTT Cancelled PTT Ratio Cancelled Fibrinogen Heparin Anti-Xa, LM Wt Sample Site POC pH POC pCO2 POC pO2 POC HCO3 POC Total CO2 POC Base Excess ABG pH (Temp Correct) ABG pCO2 (Temp Corrct POC ABG pO2 at Pt Temp POC ABG O2 Sat Kodak Test VBG pH O2 Delivery Device POC O2 Rate POC FiO2 IPAP POC Sodium Sodium POC Potassium Potassium Chloride Carbon Dioxide Anion Gap BUN Creatinine Est Cr Clr Drug Dosing Est GFR ( Amer) Est GFR (Non-Af Amer) BUN/Creatinine Ratio Glucose POC Glucose 144 H 158 H Osmolality Lactate Calcium Phosphorus Magnesium Total Bilirubin AST ALT Alkaline Phosphatase Total Creatine Kinase Troponin I C-Reactive Protein Total Protein Albumin Globulin Albumin/Globulin Ratio Triglycerides Cholesterol LDL Cholesterol, Calc VLDL Cholesterol, Calc HDL Cholesterol Cholesterol/HDL Ratio Beta-Hydroxybutyric Acd TSH Urine Osmolality Ur Random Creatinine Ur Random Sodium Ur Random Potassium Ur Random Chloride Ur Random Uric Acid Nasal Screen MRSA (PCR) Stool Occult Bld Scrn Random Vancomycin Methotrexate Salicylates Urine Opiates Screen U Codeine Confrm GC/MS Ur Morphine (GC/MS) Ur Hydrocodone (GC/MS) Ur Norhydrocodone Ur Noroxycodone Urine Oxycodone (GC/MS) U Oxymorphone GC/MS Ur Methadone, Qual Ur Hydromorphone (GC/MS) Acetaminophen Urine Barbiturates Ur Phencyclidine (PCP) U Amphetamin/Meth Scrn Urine MDEA MDMA (Ecstasy) Screen MDMA Urine MDMA U Benzodiazepines Scrn Ur Cocaine Metabolite U Marijuana (THC) Screen U Marijuana THC Carboxy Drug Screen Comment Ethylene Glycol Volat Analys Perform On Ethyl Alcohol mg/dL Methyl Alcohol Level SARS-CoV-2 (PCR) Blood Type Blood Type Recheck Antibody Screen 02/18/21 02/18/21 02/18/21 09:03 09:03 09:03 WBC RBC Hgb POC Hgb Hct POC Hct MCV MCH MCHC RDW Std Deviation RDW Coeff of Melba Plt Count MPV Immature Gran % (Auto) Neut % (Auto) Lymph % (Auto) Gonzales % (Auto) Eos % (Auto) Baso % (Auto) Neut # (Auto) Lymph # (Auto) Gonzales # (Auto) Eos # (Auto) Baso # (Auto) Immature Gran # (Auto) Absolute Nucleated RBC Nucleated RBC % (auto) RBC Morphology Polychromasia ESR PT INR APTT PTT Ratio Fibrinogen Heparin Anti-Xa, LM Wt Sample Site POC pH POC pCO2 POC pO2 POC HCO3 POC Total CO2 POC Base Excess ABG pH (Temp Correct) ABG pCO2 (Temp Corrct POC ABG pO2 at Pt Temp POC ABG O2 Sat Kodak Test VBG pH 7.40 O2 Delivery Device POC O2 Rate POC FiO2 IPAP POC Sodium Sodium 147 H POC Potassium Potassium 3.7 Chloride 114 H Carbon Dioxide 20 L Anion Gap 13.0 H BUN 63 H Creatinine 1.79 H Est Cr Clr Drug Dosing 47.5 Est GFR ( Amer) 41.7 Est GFR (Non-Af Amer) 36.0 BUN/Creatinine Ratio 35.4 H Glucose 155 H POC Glucose Osmolality Lactate Calcium 8.0 L Phosphorus 1.2 L* Magnesium 2.1 Total Bilirubin AST ALT Alkaline Phosphatase Total Creatine Kinase Troponin I C-Reactive Protein 1.60 H Total Protein Albumin Globulin Albumin/Globulin Ratio Triglycerides Cholesterol LDL Cholesterol, Calc VLDL Cholesterol, Calc HDL Cholesterol Cholesterol/HDL Ratio Beta-Hydroxybutyric Acd TSH Urine Osmolality Ur Random Creatinine Ur Random Sodium Ur Random Potassium Ur Random Chloride Ur Random Uric Acid Nasal Screen MRSA (PCR) Stool Occult Bld Scrn Random Vancomycin Methotrexate Salicylates Urine Opiates Screen U Codeine Confrm GC/MS Ur Morphine (GC/MS) Ur Hydrocodone (GC/MS) Ur Norhydrocodone Ur Noroxycodone Urine Oxycodone (GC/MS) U Oxymorphone GC/MS Ur Methadone, Qual Ur Hydromorphone (GC/MS) Acetaminophen Urine Barbiturates Ur Phencyclidine (PCP) U Amphetamin/Meth Scrn Urine MDEA MDMA (Ecstasy) Screen MDMA Urine MDMA U Benzodiazepines Scrn Ur Cocaine Metabolite U Marijuana (THC) Screen U Marijuana THC Carboxy Drug Screen Comment Ethylene Glycol Pending Volat Analys Perform On Pending Ethyl Alcohol mg/dL Methyl Alcohol Level Pending SARS-CoV-2 (PCR) Blood Type Blood Type Recheck Antibody Screen 02/18/21 02/18/21 02/18/21 09:03 09:03 09:03 WBC RBC Hgb POC Hgb Hct POC Hct MCV MCH MCHC RDW Std Deviation RDW Coeff of Melba Plt Count MPV Immature Gran % (Auto) Neut % (Auto) Lymph % (Auto) Gonzales % (Auto) Eos % (Auto) Baso % (Auto) Neut # (Auto) Lymph # (Auto) Gonzales # (Auto) Eos # (Auto) Baso # (Auto) Immature Gran # (Auto) Absolute Nucleated RBC Nucleated RBC % (auto) RBC Morphology Polychromasia ESR < 1 PT INR APTT PTT Ratio Fibrinogen Heparin Anti-Xa, LM Wt Sample Site POC pH POC pCO2 POC pO2 POC HCO3 POC Total CO2 POC Base Excess ABG pH (Temp Correct) ABG pCO2 (Temp Corrct POC ABG pO2 at Pt Temp POC ABG O2 Sat [employer]ak Test VBG pH O2 Delivery Device POC O2 Rate POC FiO2 IPAP POC Sodium Sodium POC Potassium Potassium Chloride Carbon Dioxide Anion Gap BUN Creatinine Est Cr Clr Drug Dosing Est GFR ( Amer) Est GFR (Non-Af Amer) BUN/Creatinine Ratio Glucose POC Glucose Osmolality Lactate 7.4 H* Calcium Phosphorus Magnesium Total Bilirubin AST ALT Alkaline Phosphatase Total Creatine Kinase Troponin I C-Reactive Protein Total Protein Albumin Globulin Albumin/Globulin Ratio Triglycerides Cholesterol LDL Cholesterol, Calc VLDL Cholesterol, Calc HDL Cholesterol Cholesterol/HDL Ratio Beta-Hydroxybutyric Acd TSH Urine Osmolality Ur Random Creatinine Ur Random Sodium Ur Random Potassium Ur Random Chloride Ur Random Uric Acid Nasal Screen MRSA (PCR) Stool Occult Bld Scrn Random Vancomycin Methotrexate Salicylates < 1.7 L Urine Opiates Screen U Codeine Confrm GC/MS Ur Morphine (GC/MS) Ur Hydrocodone (GC/MS) Ur Norhydrocodone Ur Noroxycodone Urine Oxycodone (GC/MS) U Oxymorphone GC/MS Ur Methadone, Qual Ur Hydromorphone (GC/MS) Acetaminophen 4 L Urine Barbiturates Ur Phencyclidine (PCP) U Amphetamin/Meth Scrn Urine MDEA MDMA (Ecstasy) Screen MDMA Urine MDMA U Benzodiazepines Scrn Ur Cocaine Metabolite U Marijuana (THC) Screen U Marijuana THC Carboxy Drug Screen Comment Ethylene Glycol Volat Analys Perform On Ethyl Alcohol mg/dL Methyl Alcohol Level SARS-CoV-2 (PCR) Blood Type Blood Type Recheck Antibody Screen 02/18/21 02/18/21 02/18/21 09:03 09:03 09:03 WBC RBC Hgb POC Hgb Hct POC Hct MCV MCH MCHC RDW Std Deviation RDW Coeff of Melba Plt Count MPV Immature Gran % (Auto) Neut % (Auto) Lymph % (Auto) Gonzales % (Auto) Eos % (Auto) Baso % (Auto) Neut # (Auto) Lymph # (Auto) Gonzales # (Auto) Eos # (Auto) Baso # (Auto) Immature Gran # (Auto) Absolute Nucleated RBC Nucleated RBC % (auto) RBC Morphology Polychromasia ESR PT 16.0 H INR 1.6 H APTT 27.3 PTT Ratio 1.0 Fibrinogen 299 Heparin Anti-Xa, LM Wt 1.45 Sample Site POC pH POC pCO2 POC pO2 POC HCO3 POC Total CO2 POC Base Excess ABG pH (Temp Correct) ABG pCO2 (Temp Corrct POC ABG pO2 at Pt Temp POC ABG O2 Sat Kodak Test VBG pH O2 Delivery Device POC O2 Rate POC FiO2 IPAP POC Sodium Sodium POC Potassium Potassium Chloride Carbon Dioxide Anion Gap BUN Creatinine Est Cr Clr Drug Dosing Est GFR ( Amer) Est GFR (Non-Af Amer) BUN/Creatinine Ratio Glucose POC Glucose Osmolality Lactate Calcium Phosphorus Magnesium Total Bilirubin AST ALT Alkaline Phosphatase Total Creatine Kinase Troponin I C-Reactive Protein Total Protein Albumin Globulin Albumin/Globulin Ratio Triglycerides Cholesterol LDL Cholesterol, Calc VLDL Cholesterol, Calc HDL Cholesterol Cholesterol/HDL Ratio Beta-Hydroxybutyric Acd TSH Urine Osmolality Ur Random Creatinine Ur Random Sodium Ur Random Potassium Ur Random Chloride Ur Random Uric Acid Nasal Screen MRSA (PCR) Stool Occult Bld Scrn Random Vancomycin Methotrexate Salicylates Urine Opiates Screen U Codeine Confrm GC/MS Ur Morphine (GC/MS) Ur Hydrocodone (GC/MS) Ur Norhydrocodone Ur Noroxycodone Urine Oxycodone (GC/MS) U Oxymorphone GC/MS Ur Methadone, Qual Ur Hydromorphone (GC/MS) Acetaminophen Urine Barbiturates Ur Phencyclidine (PCP) U Amphetamin/Meth Scrn Urine MDEA MDMA (Ecstasy) Screen MDMA Urine MDMA U Benzodiazepines Scrn Ur Cocaine Metabolite U Marijuana (THC) Screen U Marijuana THC Carboxy Drug Screen Comment Ethylene Glycol Volat Analys Perform On Ethyl Alcohol mg/dL Methyl Alcohol Level SARS-CoV-2 (PCR) Blood Type Blood Type Recheck O Negative Antibody Screen 02/18/21 02/18/21 02/18/21 09:06 10:17 10:55 WBC RBC Hgb POC Hgb Hct POC Hct MCV MCH MCHC RDW Std Deviation RDW Coeff of Melba Plt Count MPV Immature Gran % (Auto) Neut % (Auto) Lymph % (Auto) Gonzales % (Auto) Eos % (Auto) Baso % (Auto) Neut # (Auto) Lymph # (Auto) Gonzales # (Auto) Eos # (Auto) Baso # (Auto) Immature Gran # (Auto) Absolute Nucleated RBC Nucleated RBC % (auto) RBC Morphology Polychromasia ESR PT INR APTT PTT Ratio Fibrinogen Heparin Anti-Xa, LM Wt Sample Site POC pH POC pCO2 POC pO2 POC HCO3 POC Total CO2 POC Base Excess ABG pH (Temp Correct) ABG pCO2 (Temp Corrct POC ABG pO2 at Pt Temp POC ABG O2 Sat [employer]ak Test VBG pH O2 Delivery Device POC O2 Rate POC FiO2 IPAP POC Sodium Sodium POC Potassium Potassium Chloride Carbon Dioxide Anion Gap BUN Creatinine Est Cr Clr Drug Dosing Est GFR ( Amer) Est GFR (Non-Af Amer) BUN/Creatinine Ratio Glucose POC Glucose 169 H 160 H Osmolality Lactate 8.5 H* Calcium Phosphorus Magnesium Total Bilirubin AST ALT Alkaline Phosphatase Total Creatine Kinase Troponin I C-Reactive Protein Total Protein Albumin Globulin Albumin/Globulin Ratio Triglycerides Cholesterol LDL Cholesterol, Calc VLDL Cholesterol, Calc HDL Cholesterol Cholesterol/HDL Ratio Beta-Hydroxybutyric Acd TSH Urine Osmolality Ur Random Creatinine Ur Random Sodium Ur Random Potassium Ur Random Chloride Ur Random Uric Acid Nasal Screen MRSA (PCR) Stool Occult Bld Scrn Random Vancomycin Methotrexate Salicylates Urine Opiates Screen U Codeine Confrm GC/MS Ur Morphine (GC/MS) Ur Hydrocodone (GC/MS) Ur Norhydrocodone Ur Noroxycodone Urine Oxycodone (GC/MS) U Oxymorphone GC/MS Ur Methadone, Qual Ur Hydromorphone (GC/MS) Acetaminophen Urine Barbiturates Ur Phencyclidine (PCP) U Amphetamin/Meth Scrn Urine MDEA MDMA (Ecstasy) Screen MDMA Urine MDMA U Benzodiazepines Scrn Ur Cocaine Metabolite U Marijuana (THC) Screen U Marijuana THC Carboxy Drug Screen Comment Ethylene Glycol Volat Analys Perform On Ethyl Alcohol mg/dL Methyl Alcohol Level SARS-CoV-2 (PCR) Blood Type Blood Type Recheck Antibody Screen 02/18/21 02/18/21 02/18/21 10:55 10:55 10:55 WBC RBC Hgb 8.3 L POC Hgb Hct 24.3 L POC Hct MCV MCH MCHC RDW Std Deviation RDW Coeff of Melba Plt Count MPV Immature Gran % (Auto) Neut % (Auto) Lymph % (Auto) Gonzales % (Auto) Eos % (Auto) Baso % (Auto) Neut # (Auto) Lymph # (Auto) Gonzales # (Auto) Eos # (Auto) Baso # (Auto) Immature Gran # (Auto) Absolute Nucleated RBC Nucleated RBC % (auto) RBC Morphology Polychromasia ESR PT INR APTT PTT Ratio Fibrinogen Heparin Anti-Xa, LM Wt Sample Site POC pH POC pCO2 POC pO2 POC HCO3 POC Total CO2 POC Base Excess ABG pH (Temp Correct) ABG pCO2 (Temp Corrct POC ABG pO2 at Pt Temp POC ABG O2 Sat Kodak Test VBG pH O2 Delivery Device POC O2 Rate POC FiO2 IPAP POC Sodium Sodium POC Potassium Potassium Chloride Carbon Dioxide Anion Gap BUN Creatinine Est Cr Clr Drug Dosing Est GFR ( Amer) Est GFR (Non-Af Amer) BUN/Creatinine Ratio Glucose POC Glucose Osmolality 325 H Lactate Calcium Phosphorus Magnesium Total Bilirubin AST ALT Alkaline Phosphatase Total Creatine Kinase Troponin I C-Reactive Protein Total Protein Albumin Globulin Albumin/Globulin Ratio Triglycerides Cholesterol LDL Cholesterol, Calc VLDL Cholesterol, Calc HDL Cholesterol Cholesterol/HDL Ratio Beta-Hydroxybutyric Acd TSH Urine Osmolality Ur Random Creatinine Ur Random Sodium Ur Random Potassium Ur Random Chloride Ur Random Uric Acid Nasal Screen MRSA (PCR) Stool Occult Bld Scrn Random Vancomycin Methotrexate Salicylates Urine Opiates Screen U Codeine Confrm GC/MS Ur Morphine (GC/MS) Ur Hydrocodone (GC/MS) Ur Norhydrocodone Ur Noroxycodone Urine Oxycodone (GC/MS) U Oxymorphone GC/MS Ur Methadone, Qual Ur Hydromorphone (GC/MS) Acetaminophen Urine Barbiturates Ur Phencyclidine (PCP) U Amphetamin/Meth Scrn Urine MDEA MDMA (Ecstasy) Screen MDMA Urine MDMA U Benzodiazepines Scrn Ur Cocaine Metabolite U Marijuana (THC) Screen U Marijuana THC Carboxy Drug Screen Comment Ethylene Glycol Volat Analys Perform On Ethyl Alcohol mg/dL Methyl Alcohol Level SARS-CoV-2 (PCR) Blood Type O Negative Blood Type Recheck Antibody Screen NEGATIVE 02/18/21 02/18/21 02/18/21 11:12 12:16 12:46 WBC RBC Hgb POC Hgb Hct POC Hct MCV MCH MCHC RDW Std Deviation RDW Coeff of Melba Plt Count MPV Immature Gran % (Auto) Neut % (Auto) Lymph % (Auto) Gonzales % (Auto) Eos % (Auto) Baso % (Auto) Neut # (Auto) Lymph # (Auto) Gonzales # (Auto) Eos # (Auto) Baso # (Auto) Immature Gran # (Auto) Absolute Nucleated RBC Nucleated RBC % (auto) RBC Morphology Polychromasia ESR PT INR APTT PTT Ratio Fibrinogen Heparin Anti-Xa, LM Wt Sample Site POC pH POC pCO2 POC pO2 POC HCO3 POC Total CO2 POC Base Excess ABG pH (Temp Correct) ABG pCO2 (Temp Corrct POC ABG pO2 at Pt Temp POC ABG O2 Sat [employer]ak Test VBG pH O2 Delivery Device POC O2 Rate POC FiO2 IPAP POC Sodium Sodium 148 H POC Potassium Potassium 3.8 Chloride 114 H Carbon Dioxide 20 L Anion Gap 14.0 H BUN 56 H Creatinine 1.68 H Est Cr Clr Drug Dosing 50.6 Est GFR ( Amer) 45.1 Est GFR (Non-Af Amer) 38.9 BUN/Creatinine Ratio 33.3 H Glucose 135 H POC Glucose 152 H 129 H Osmolality Lactate Calcium 7.6 L Phosphorus 1.7 L Magnesium 2.3 Total Bilirubin AST ALT Alkaline Phosphatase Total Creatine Kinase Troponin I C-Reactive Protein Total Protein Albumin Globulin Albumin/Globulin Ratio Triglycerides Cholesterol LDL Cholesterol, Calc VLDL Cholesterol, Calc HDL Cholesterol Cholesterol/HDL Ratio Beta-Hydroxybutyric Acd TSH Urine Osmolality Ur Random Creatinine Ur Random Sodium Ur Random Potassium Ur Random Chloride Ur Random Uric Acid Nasal Screen MRSA (PCR) Stool Occult Bld Scrn Random Vancomycin Methotrexate Salicylates Urine Opiates Screen U Codeine Confrm GC/MS Ur Morphine (GC/MS) Ur Hydrocodone (GC/MS) Ur Norhydrocodone Ur Noroxycodone Urine Oxycodone (GC/MS) U Oxymorphone GC/MS Ur Methadone, Qual Ur Hydromorphone (GC/MS) Acetaminophen Urine Barbiturates Ur Phencyclidine (PCP) U Amphetamin/Meth Scrn Urine MDEA MDMA (Ecstasy) Screen MDMA Urine MDMA U Benzodiazepines Scrn Ur Cocaine Metabolite U Marijuana (THC) Screen U Marijuana THC Carboxy Drug Screen Comment Ethylene Glycol Volat Analys Perform On Ethyl Alcohol mg/dL Methyl Alcohol Level SARS-CoV-2 (PCR) Blood Type Blood Type Recheck Antibody Screen 02/18/21 02/18/21 02/18/21 12:46 12:46 12:46 WBC RBC Hgb POC Hgb Hct POC Hct MCV MCH MCHC RDW Std Deviation RDW Coeff of Melba Plt Count MPV Immature Gran % (Auto) Neut % (Auto) Lymph % (Auto) Gonzales % (Auto) Eos % (Auto) Baso % (Auto) Neut # (Auto) Lymph # (Auto) Gonzales # (Auto) Eos # (Auto) Baso # (Auto) Immature Gran # (Auto) Absolute Nucleated RBC Nucleated RBC % (auto) RBC Morphology Polychromasia ESR PT INR APTT PTT Ratio Fibrinogen Heparin Anti-Xa, LM Wt Sample Site POC pH POC pCO2 POC pO2 POC HCO3 POC Total CO2 POC Base Excess ABG pH (Temp Correct) ABG pCO2 (Temp Corrct POC ABG pO2 at Pt Temp POC ABG O2 Sat Kodak Test VBG pH 7.39 O2 Delivery Device POC O2 Rate POC FiO2 IPAP POC Sodium Sodium POC Potassium Potassium Chloride Carbon Dioxide Anion Gap BUN Creatinine Est Cr Clr Drug Dosing Est GFR ( Amer) Est GFR (Non-Af Amer) BUN/Creatinine Ratio Glucose POC Glucose Osmolality Lactate Calcium Phosphorus Magnesium Total Bilirubin AST ALT Alkaline Phosphatase Total Creatine Kinase Troponin I C-Reactive Protein Total Protein Albumin Pending Globulin Albumin/Globulin Ratio Triglycerides Cholesterol LDL Cholesterol, Calc VLDL Cholesterol, Calc HDL Cholesterol Cholesterol/HDL Ratio Beta-Hydroxybutyric Acd TSH Urine Osmolality Ur Random Creatinine Ur Random Sodium Ur Random Potassium Ur Random Chloride Ur Random Uric Acid Nasal Screen MRSA (PCR) Stool Occult Bld Scrn Random Vancomycin Methotrexate Pending Salicylates Urine Opiates Screen U Codeine Confrm GC/MS Ur Morphine (GC/MS) Ur Hydrocodone (GC/MS) Ur Norhydrocodone Ur Noroxycodone Urine Oxycodone (GC/MS) U Oxymorphone GC/MS Ur Methadone, Qual Ur Hydromorphone (GC/MS) Acetaminophen Urine Barbiturates Ur Phencyclidine (PCP) U Amphetamin/Meth Scrn Urine MDEA MDMA (Ecstasy) Screen MDMA Urine MDMA U Benzodiazepines Scrn Ur Cocaine Metabolite U Marijuana (THC) Screen U Marijuana THC Carboxy Drug Screen Comment Ethylene Glycol Volat Analys Perform On Ethyl Alcohol mg/dL Methyl Alcohol Level SARS-CoV-2 (PCR) Blood Type Blood Type Recheck Antibody Screen 02/18/21 02/18/21 13:27 13:57 WBC RBC Hgb POC Hgb Hct POC Hct MCV MCH MCHC RDW Std Deviation RDW Coeff of Melba Plt Count MPV Immature Gran % (Auto) Neut % (Auto) Lymph % (Auto) Gonzales % (Auto) Eos % (Auto) Baso % (Auto) Neut # (Auto) Lymph # (Auto) Gonzales # (Auto) Eos # (Auto) Baso # (Auto) Immature Gran # (Auto) Absolute Nucleated RBC Nucleated RBC % (auto) RBC Morphology Polychromasia ESR PT INR APTT PTT Ratio Fibrinogen Heparin Anti-Xa, LM Wt Sample Site POC pH POC pCO2 POC pO2 POC HCO3 POC Total CO2 POC Base Excess ABG pH (Temp Correct) ABG pCO2 (Temp Corrct POC ABG pO2 at Pt Temp POC ABG O2 Sat Kodak Test VBG pH O2 Delivery Device POC O2 Rate POC FiO2 IPAP POC Sodium Sodium POC Potassium Potassium Chloride Carbon Dioxide Anion Gap BUN Creatinine Est Cr Clr Drug Dosing Est GFR ( Amer) Est GFR (Non-Af Amer) BUN/Creatinine Ratio Glucose POC Glucose 124 H 128 H Osmolality Lactate Calcium Phosphorus Magnesium Total Bilirubin AST ALT Alkaline Phosphatase Total Creatine Kinase Troponin I C-Reactive Protein Total Protein Albumin Globulin Albumin/Globulin Ratio Triglycerides Cholesterol LDL Cholesterol, Calc VLDL Cholesterol, Calc HDL Cholesterol Cholesterol/HDL Ratio Beta-Hydroxybutyric Acd TSH Urine Osmolality Ur Random Creatinine Ur Random Sodium Ur Random Potassium Ur Random Chloride Ur Random Uric Acid Nasal Screen MRSA (PCR) Stool Occult Bld Scrn Random Vancomycin Methotrexate Salicylates Urine Opiates Screen U Codeine Confrm GC/MS Ur Morphine (GC/MS) Ur Hydrocodone (GC/MS) Ur Norhydrocodone Ur Noroxycodone Urine Oxycodone (GC/MS) U Oxymorphone GC/MS Ur Methadone, Qual Ur Hydromorphone (GC/MS) Acetaminophen Urine Barbiturates Ur Phencyclidine (PCP) U Amphetamin/Meth Scrn Urine MDEA MDMA (Ecstasy) Screen MDMA Urine MDMA U Benzodiazepines Scrn Ur Cocaine Metabolite U Marijuana (THC) Screen U Marijuana THC Carboxy Drug Screen Comment Ethylene Glycol Volat Analys Perform On Ethyl Alcohol mg/dL Methyl Alcohol Level SARS-CoV-2 (PCR) Blood Type Blood Type Recheck Antibody Screen Diagnostic Findings ADDENDUM 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 No evidence for femoral head collapse. Electronically signed by: Óscar Justice M.D. 02/18/2021 10:40 AM ADDENDUM END ABDOMEN AND PELVIS CT WITHOUT CONTRAST CT DOSE: 1077.42 mGycm HISTORY: Generalized abdominal pain. r/o ischemia TECHNIQUE: Multiaxial CT images of the abdomen and pelvis were performed without contrast. A dose lowering technique was utilized adhering to the principles of ALARA. COMPARISON STUDY: Abdomen and pelvis CT 02/17/2021. FINDINGS: Mild chronic interstitial thickening and a few bibasilar linear densities are again noted. Suboptimal evaluation of the abdomen and pelvis due to the motion artifact. No pneumoperitoneum. No pneumatosis. No fractures within the visualized osseous structures. The unenhanced probable punctate right renal calculi. Gallbladder, spleen, adrenal glands, and pancreas are unremarkable. No retroperitoneal lymphadenopathy. Calcified plaque within the normal caliber abdominal aorta. There is a 5 mm stone within the lower pole the left kidney. Redemonstration of the 1.9 cm hypodense lesion within the right kidney. This may demonstrate enhancement when compared to the prior study and therefore could represent a renal mass. No hydronephrosis. No ureteral stones. The bladder is decompressed by a Thorne catheter. Mild fat stranding anterior to the bladder. Tiny fat-containing left inguinal hernia. Suboptimal evaluation for bowel pathology due to the lack of intravenous and oral contrast. However, there is no definite bowel wall thickening or obstruction. Colonic diverticulosis. No evidence for acute diverticulitis. Normal appendix. There is trace edema versus retroperitoneal hemorrhage anterior to the iliopsoas muscle within the left pelvis. This is best seen on image 305. This measures 3.1 x 1.3 cm. This is new from the prior study. Multiple brachytherapy seeds again noted within the prostate gland. Stable hepatic calcifications are noted. IMPRESSION: 1. There is trace focal edema versus retroperitoneal hemorrhage anterior to the iliopsoas muscle within the left pelvis. This measures 3.1 x 1.3 cm and is new from the prior study. 2. Bilateral nephrolithiasis. No ureteral stones. No hydronephrosis. 3. The 1.9 cm hypodense lesion within the right kidney may demonstrate enhancement when compared to the prior study. Therefore, a renal mass is the diagnosis of exclusion. Follow-up nonemergent dedicated renal MRI can be used for further evaluation. 4. The bladder is decompressed by Thorne catheter. There is mild edema/fat stranding anteriorly. This is nonspecific but could be due to a mild cystitis. Medications Administered Current Inpatient Medications Acetaminophen (Acetaminophen 325 Mg Tab) 650 mg PO Q4H PRN PRN Reason: Pain or Fever Stop: 03/19/21 16:05 Albuterol (Albut/Ipratrop 3mg/0.5mg Neb 3 Ml Vial) 3 ml NEB QIDR PRN PRN Reason: Shortness Of Breath Or Wheezing Stop: 03/19/21 16:05 Aripiprazole (Aripiprazole 5 Mg Tab) 5 mg PO QAM [facility] Stop: 03/20/21 08:59 Last Admin: 02/18/21 08:02 Dose: Not Given Documented by: Bupropion HCl (Bupropion Sr 100 Mg Tabcr) [facility] [place] [place]: 03/20/21 08:59 Last Admin: 02/18/21 08:02 Dose: Not Given Documented by: Cyanocobalamin (Cyanocobalamin 500 Mcg Tablet (Vitamin B-12)) 1,000 mcg PO QAM [facility] Stop: 03/20/21 08:59 Last Admin: 02/18/21 08:02 Dose: Not Given Documented by: Folic Acid (Folic Acid 1 Mg Tab) 1 mg PO QAM [facility] Stop: 03/20/21 08:59 Last Admin: 02/18/21 08:02 Dose: Not Given Documented by: Insulin Human Regular 250 (units/ Sodium Chloride) 250 mls @ 1.4 mls/hr IV .Q24H BETH; Protocol Stop: 03/19/21 20:44 Last Titration: 02/18/21 08:01 Dose: 1.4 units/hr, 1.4 mls/hr Documented by: Potassium Chloride/Dextrose/Sod Cl (D5w And 1/2nss + 20meq Kcl) 20 meq in 1,000 mls @ 150 mls/hr IV .Q6H40M [facility] Stop: 03/20/21 02:59 Last Admin: 02/18/21 10:43 Dose: 150 mls/hr Documented by: Pantoprazole Sodium 40 mg/ (Dextrose) 100 mls @ 20 mls/hr IV Q5H [facility] Stop: 03/20/21 03:29 Last Admin: 02/18/21 13:42 Dose: 8 mg/hr, 20 mls/hr Documented by: Folic Acid 1 mg/ Syringe 10 mls @ 5 mls/min IV QAM [facility] Stop: 03/20/21 08:59 Last Admin: 02/18/21 08:36 Dose: 5 mls/min Documented by: Methylprednisolone 40 mg/ (Syringe) 0.64 mls @ 1.5 mls/min IV Q12H [facility] Stop: 03/20/21 17:59 Vancomycin HCl 1,500 mg/ (Sodium Chloride) 530 mls @ 200 mls/hr IV Q24H [facility] Stop: 02/28/21 11:59 Last Admin: 02/18/21 11:55 Dose: 200 mls/hr Documented by: Ceftriaxone Sodium 2,000 mg/ (Dextrose) 70 mls @ 140 mls/hr IV Q12H [facility] Stop: 02/28/21 10:59 Last Infusion: 02/18/21 11:55 Dose: Infused Documented by: Ampicillin Sodium 2,000 mg/ (Sodium Chloride) 100 mls @ 200 mls/hr IV Q6H [facility]; Protocol Stop: 02/28/21 11:59 Last Infusion: 02/18/21 11:55 Dose: Infused Documented by: Metronidazole (Flagyl) 500 mg in 100 mls @ 100 mls/hr IV Q8H [facility] Stop: 02/28/21 11:29 Last Infusion: 02/18/21 13:09 Dose: Infused Documented by: Parenteral Electrolytes (Normosol-R) 1,000 mls @ 999 mls/hr IV .Q1H1M ONE Stop: 02/18/21 14:25 Insulin Aspart (Insulin Aspart 100 Units/Ml 3 Ml Pen) 0 units SC ACHS [facility] Stop: 03/19/21 20:59 Last Admin: 02/18/21 11:15 Dose: Not Given Documented by: Metoprolol Tartrate (Metoprolol Tartrate 25 Mg Tab) 25 mg PO BID [facility] Stop: 03/19/21 20:59 Last Admin: 02/18/21 08:02 Dose: Not Given Documented by: Metoprolol Tartrate (Metoprolol Tartrate 1 Mg/Ml Vial) 2.5 mg IV Q6 [facility] Stop: 03/20/21 05:59 Last Admin: 02/18/21 13:41 Dose: Not Given Documented by: Miscellaneous Information (Piperacill/Tazobac Consult Active) 1 ea N/A UD PRN PRN Reason: Consult Stop: 03/19/21 16:05 Miscellaneous Information (Vancomycin Consult Active) 1 ea N/A UD PRN PRN Reason: Consult Stop: 03/19/21 16:05 Ondansetron HCl (Ondansetron Inj 2 Mg/Ml 2 Ml Vial) 4 mg IV Q6H PRN PRN Reason: Nausea Stop: 03/19/21 16:05 Potassium Chloride (Potassium Chloride Crtab 20 Meq Tabcr) 20 meq PO QAM [facility] Stop: 03/20/21 08:59 Last Admin: 02/18/21 08:02 Dose: Not Given Documented by: Potassium Phosphate (Potassium Phos 3 Mmol/1 Ml Infusion) 15 mmol IV NOW STA Stop: 02/18/21 13:30 Simvastatin (Simvastatin 40 Mg Tab) 40 mg PO QPM [facility] Stop: 03/19/21 20:59 Last Admin: 02/17/21 21:38 Dose: Not Given Documented by: Spironolactone (Spironolactone 25 Mg Tab) 50 mg PO BID17 [facility] Stop: 03/19/21 16:59 Last Admin: 02/17/21 18:13 Dose: Not Given Documented by: Tamsulosin HCl (Tamsulosin Hcl 0.4 Mg Cap) 0.4 mg PO QAM [facility] Stop: 03/20/21 08:59 Last Admin: 02/18/21 08:02 Dose: Not Given Documented by: Venlafaxine HCl (Venlafaxine Hcl Xr 75 Mg Capxr) 225 mg PO QAM [facility] Stop: 03/20/21 08:59 Last Admin: 02/18/21 08:03 Dose: Not Given Documented by: Vitamin D (Cholecalciferol 400 Units 10 Mcg Tab) 800 units PO QAM [facility] Stop: 03/20/21 08:59 Last Admin: 02/18/21 08:02 Dose: Not Given Documented by: PG Care Time/CCT Total # of Minutes Spent Total Time Spent with Patient: Total time spent is greater than 50% in coordination of care (as documented) at patient's floor/unit and/or counseling patient: Coding Level of Care Code 45040 Subseq Hosp Care Lvl 3 Diagnoses Sepsis A41.9 Sepsis acute organ dysfunction status: unspecified Sepsis type: sepsis due to unspecified organism Acute blood loss anemia D62 Acute respiratory failure with hypoxia J96.01 KAYKAY (acute kidney injury) N17.9 Acute metabolic encephalopathy G93.41 Chronic obstructive pulmonary disease J44.9 Hypertension I10 Temporal arteritis M31.6 Dyslipidemia E78.5 (1) Sepsis Sepsis acute organ dysfunction status: unspecified Sepsis type: sepsis due to unspecified organism Qualified Code(s): A41.9 - Sepsis, unspecified organism
--- NOTE | 2021-02-18 14:30 | Anesthesiology Consultation ---
Date of Service February 18, 2021 Assessment & Plan (1) Encounter for pre-operative examination: Chart Review Chart Review: Acceptable Risk for Surgery (would much prefer to put off until improved but if felt to be urgent will proceed - very likely to require intubation and mechanical ventilation) History Surgery Operation Date: 02/18/21 16:30 Proposed Procedures p Esophagogastroduodenoscopy Dr. Martinez - Claus Martinez MD Height/Weight Height: 6 ft 1 in Weight: 119.1 kg Allergies Allergy/AdvReac Type Severity Reaction Status Date / Time No Known Allergies Allergy Unknown Verified 02/17/21 14:01 Medications Home Medications Medication Instructions Recorded Confirmed Last Taken cyanocobalamin (vitamin B-12) 1,000 mcg PO QAM 10/06/19 02/17/21 02/16/21 apixaban 5 mg tablet 5 mg PO BID #180 tab 10/21/20 02/17/21 02/16/21 aripiprazole 5 mg tablet 5 mg PO QAM #90 tab 10/21/20 02/17/21 02/16/21 cholecalciferol (vitamin D3) 10 800 unit PO QAM #90 tab 10/21/20 02/17/21 02/16/21 mcg (400 unit) tablet furosemide 20 mg tablet 20 mg PO QAM #90 tab 10/21/20 02/17/21 02/16/21 metoprolol tartrate 25 mg tablet 25 mg PO BID #180 tab 10/21/20 02/17/2112/04 potassium chloride 20 mEq 20 meq PO QAM #90 tab 10/21/20 02/17/21 02/16/21 tablet,extended release prednisone 1 mg tablet 1 mg PO .COMPLEX #120 tab 10/21/20 02/17/21 02/16/21 prednisone 5 mg tablet 10 mg PO DAILY #90 tab 10/21/20 02/17/21 02/16/21 simvastatin 40 mg tablet 40 mg PO QPM #90 tab 10/21/20 02/17/21 02/16/21 venlafaxine 150 mg 150 mg PO QAM #90 cap 10/21/20 02/17/21 02/16/21 capsule,extended release 24 hr venlafaxine 75 mg capsule,extended 75 mg PO QAM #90 cap 10/21/20 02/17/21 02/16/21 release 24 hr folic acid 1 mg tablet 1 mg PO QAM #90 tab 11/18/20 02/17/21 02/16/21 oxycodone-acetaminophen 10 mg-325 1 tab PO Q4H PRN #150 tab 01/17/21 02/17/21 02/16/21 mg tablet bupropion HCl 100 mg PO QAM 02/17/21 02/17/21 02/16/21 methotrexate sodium 7.5 mg PO UD 02/17/21 02/17/21 02/14/21 spironolactone 50 mg PO BID 02/17/21 02/17/21 02/16/21 tamsulosin 0.4 mg PO QAM 02/17/21 02/17/21 02/16/21 Active Medications Generic Name Dose Route Start Last Admin Trade Name Freq PRN Reason Stop Dose Admin Aripiprazole 5 mg 02/18/21 09:00 02/18/21 08:02 Aripiprazole 5 Mg Tab PO 03/20/21 08:59 Not Given QAM BETH Bupropion HCl 100 mg 02/18/21 09:00 02/18/21 08:02 Bupropion Sr 100 Mg Tabcr PO 03/20/21 08:59 Not Given QAM [facility] Cyanocobalamin 1,000 mcg 02/18/21 09:00 02/18/21 08:02 Cyanocobalamin 500 Mcg Tablet (Vitamin B-12) PO 03/20/21 08:59 Not Given QAM B[facility] Folic Acid 1 mg 02/18/21 09:00 02/18/21 08:02 Folic Acid 1 Mg Tab PO 03/20/21 08:59 Not Given QAM B[facility] Insulin Human Regular 250 250 mls @ 1.4 mls/hr 02/17/21 20:45 02/18/21 08:01 units/ Sodium Chloride IV 03/19/21 20:44 1.4 units/hr .Q24H BETH 1.4 mls/hr Titration Protocol 1.4 UNITS/HR Pantoprazole Sodium 40 mg/ 100 mls @ 20 mls/hr 02/18/21 03:30 02/18/21 13:42 Dextrose IV 03/20/21 03:29 8 mg/hr Q5H BETH 20 mls/hr Administration 8 MG/HR Folic Acid 1 mg/ Syringe 10 mls @ 5 mls/min 02/18/21 09:00 02/18/21 08:36 IV 03/20/21 08:59 5 mls/min QAM BETH Administration Vancomycin HCl 1,500 mg/ 530 mls @ 200 mls/hr 02/18/21 12:00 02/18/21 11:55 Sodium Chloride IV 02/28/21 11:59 200 mls/hr Q24H B[facility] Administration Ceftriaxone Sodium 2,000 mg/ 70 mls @ 140 mls/hr 02/18/21 11:00 02/18/21 11:55 Dextrose IV 02/28/21 10:59 Infused Q12H [facility] Infusion Ampicillin Sodium 2,000 mg/ 100 mls @ 200 mls/hr 02/18/21 12:00 02/18/21 11:55 Sodium Chloride IV 02/28/21 11:59 Infused Q6H [facility] Infusion Protocol Metronidazole 500 mg in 100 mls @ 100 mls/hr 02/18/21 11:30 02/18/21 13:09 Flagyl IV 02/28/21 11:29 Infused Q8H [facility] Infusion Parenteral Electrolytes 1,000 mls @ 999 mls/hr 02/18/21 14:30 02/18/21 13:40 Normosol-R IV 02/18/21 15:30 999 mls/hr .Q1H1M ONE Administration Insulin Aspart 0 units 02/17/21 21:00 02/18/21 11:15 Insulin Aspart 100 Units/Ml 3 Ml Pen SC 03/19/21 20:59 Not Given ACHS BETH Metoprolol Tartrate 25 mg 02/17/21 21:00 02/18/21 08:02 Metoprolol Tartrate 25 Mg Tab PO 03/19/21 20:59 Not Given BID BETH Metoprolol Tartrate 2.5 mg 02/18/21 06:00 02/18/21 13:41 Metoprolol Tartrate 1 Mg/Ml Vial IV 03/20/21 05:59 Not Given Q6 [facility] Potassium Chloride 20 meq 02/18/21 09:00 02/18/21 08:02 Potassium Chloride Crtab 20 Meq Tabcr PO 03/20/21 08:59 Not Given QAM [facility] Simvastatin 40 mg 02/17/21 21:00 02/17/21 21:38 Simvastatin 40 Mg Tab PO 08/04/21 20:59 Not Given QPM [facility] Spironolactone 50 mg 02/17/21 17:00 02/17/21 18:13 Spironolactone 25 Mg Tab PO 03/19/21 16:59 Not Given BID17 [facility] Tamsulosin HCl 0.4 mg 02/18/21 09:00 02/18/21 08:02 Tamsulosin Hcl 0.4 Mg Cap PO 03/20/21 08:59 Not Given QAM [facility] Venlafaxine HCl 225 mg 02/18/21 09:00 02/18/21 08:03 Venlafaxine Hcl Xr 75 Mg Capxr PO 03/20/21 08:59 Not Given QAM [facility] Vitamin D 800 units 02/18/21 09:00 02/18/21 08:02 Cholecalciferol 400 Units 10 Mcg Tab PO 03/20/21 08:59 Not Given QAM [facility] Past Medical History Medical History Achalasia Degenerative disc disease Esophageal dilatation History of malignant neoplasm of prostate History of nicotine dependence History of non-healing wound PT'S SON REPORTS PT HAD THESE (TO LOWER LEGS) AND HOME NURSING CHECKS BUT HAVE IMPROVED GREATLY History of pneumonia Hx of pancreatitis On home oxygen therapy 3lpm prn Osteoarthritis Paroxysmal atrial fibrillation DX SEP 2019> DID NOT START ELIQUIS PER PATIENTS SON> WEARING HALTER MONITOR CURRENTLY > [facility] [place] [facility]> SON REPORTS PT IS VERY NON COMPLIANT WITH MEDS/TREATMENT PLANS Peripheral neuropathy bilateral hands & feet Sleep apnea non-compliant with cpap Solitary pulmonary nodule Exercise / Class Metabolic Activity III < 4 Walking/Shop/Light housework Past Family History Family History Other Hypertension Denies family history of Deep vein thrombosis Cancer Past Surgical History Surgical History H/O toe surgery History of arthroscopic surgery of shoulder bilateral History of colonoscopy History of cystoscopy with stent History of esophagogastroduodenoscopy (EGD) History of nasal septoplasty History of tonsillectomy Hx of shoulder surgery open left shoulder Social History Smoking Status: Unknown if ever smoked tobacco type: cigarettes Alcohol type: beer substance use type: marijuana Substance Use Type Other:: MEDICAL MARIJUANA AT HS Physical Exam Vital Signs Last Vital Signs Temp 36.7 C 02/18/21 07:15 Pulse 118 H 02/18/21 10:34 Resp 20 02/18/21 10:34 BP 104/58 L 02/18/21 10:34 Pulse Ox 98 02/18/21 10:34 Testing Laboratory Results 02/18/21 10:55 02/18/21 12:46 PT 16.0 Seconds (9.0-12.0) H 02/18/21 09:03 INR 1.6 (0.9-1.1) H 02/18/21 09:03 APTT 27.3 Seconds (21.0-31.0) 02/18/21 09:03 Urine Color Yellow 02/17/21 13:20 Urine Appearance Clear (Clear) 02/17/21 13:20 Urine pH 5.0 (4.5-7.5) 02/17/21 13:20 Ur Specific [place] > 1.045 (1.000-1.030) H 02/17/21 13:20 Urine Protein Trace (Negative) H 02/17/21 13:20 Urine Glucose (UA) Trace (Negative) H 02/17/21 13:20 Urine Ketones 1+ (Negative) H 02/17/21 13:20 Urine Nitrite Negative (Negative) 02/17/21 13:20 Ur Leukocyte Esterase Negative (Negative) 02/17/21 13:20 Urine WBC (Auto) 5-10 /hpf (0-5) H 02/17/21 13:20 Urine RBC (Auto) 10-30 /hpf (0-4) H 02/17/21 13:20 U Hyaline Cast (Auto) 1-5 /lpf (0-5) 02/17/21 13:20 U Epithel Cells (Auto) 10-20 /lpf (0-5) H 02/17/21 13:20 Urine Bacteria (Auto) Negative (Negative) 02/17/21 13:20 Blood Type O Negative 02/18/21 10:55 Antibody Screen NEGATIVE 02/18/21 10:55 02/17/21 11:51 Aerobic Blood Culture - Preliminary Blood Gram positive cocci clusters 02/17/21 12:32 Aerobic Blood Culture - Preliminary Blood No growth in Aerobic bottle after 24 hours. Anaerobic Blood Culture - Preliminary No growth in Anaerobic bottle after 24 hours. 02/17/21 20:21 Urine Culture - Preliminary Urine,Indwelling Cath No growth - Less than 1,000 colonies/mL, Final report to follow. 02/18/21 02/18/21 02/18/21 13:57 13:27 12:16 POC Glucose 128 H 124 H 129 H 02/18/21 02/18/21 02/18/21 11:12 10:17 09:06 POC Glucose 152 H 160 H 169 H 02/18/21 02/18/21 02/18/21 07:56 06:57 06:05 POC Glucose 158 H 144 H 137 H 02/18/21 02/18/21 02/18/21 05:05 03:59 02:58 POC Glucose 128 H 122 H 128 H Electrocardiogram Date: 02/18/21 Findings: + NSST changes and + ST @ (114) prolonged QT Echocardiogram Date: 02/18/21 EF: 70% LV Function: hyperdynam Valvular Disease: + no significant valvular disease intraventricular pressure gradient in LV likely due to hyperdynamic contractions
[2021-02-18] MEDS ORDERED: PROPOFOL IV EMULSION 10 MG/ML 20 ML VIAL IV ONE (14:57)
[2021-02-18] MEDS ORDERED: SUCCINYLCHOLINE CHLORIDE 20 MG/ML 10 ML VIAL IV ONE (14:57)
[2021-02-18] MEDS ORDERED: MIDAZOLAM HCL 1 MG/ML 2ML VIAL ONE (15:07)
[2021-02-18] MEDS: SODIUM CHLOR 0.45% + 20MEQ KCL 20 MEQ/1,000 ML BAG IV SCH ×2 (15:10→21:24)
[2021-02-18] MEDS ORDERED: PROPOFOL IV EMULSION 10 MG/ML 100 ML VIAL IV ONE (15:33)
[2021-02-18] MEDS ORDERED: STAT IV Infusion **Titration per Protocol STA (15:34)
--- NOTE | 2021-02-18 15:35 | GI REPORT ---
Patient Name: Gio Juarez Procedure Date: 02/18/2021 3:06 PM Date of : 1945 Admit Type: Inpatient Age: 75 Gender: Male Attending MD: Claus Martinez MD Procedure: Upper GI endoscopy Providers: Claus Martinez MD Referring MD: Babak Do Indications: Melena Medicines: Monitored Anesthesia Care Complications: No immediate complications. Estimated blood loss: None. Estimated Blood Loss: Estimated blood loss: none. Procedure: Pre-Anesthesia Assessment: - Prior Anticoagulants: The patient has taken Eliquis (apixaban), last dose was 1 day prior to procedure. - ASA Grade Assessment: IV - A patient with severe systemic disease that is a constant threat to life. After obtaining informed consent, the endoscope was passed under direct vision. Throughout the procedure, the patient's blood pressure, pulse, and oxygen saturations were monitored continuously. The scope was introduced through the mouth, and advanced to the second part of duodenum. The upper GI endoscopy was accomplished without difficulty. The patient tolerated the procedure well. Findings: The examined esophagus was normal. Diffuse mild inflammation characterized by erythema was found in the stomach. The duodenal bulb and second portion of the duodenum were normal. No evidence of blood or varices throughout entire procedure. Impression: - Normal esophagus. - Gastritis. - Normal duodenal bulb and second portion of the duodenum. - No specimens collected. Recommendation: - Return patient to ICU for ongoing care. - NPO. -consider other causes for leukocytosis and elevated lactate such as infection or ischemia. No GI evidence of blood loss on exam. Claus Martinez MD 02/18/2021 3:34:32 PM This report has been signed electronically. Note Initiated On: 02/18/2021 3:06 PM Number of Addenda: 0 I attest to the content of the Intraoperative Record and orders documented therein, exceptions below {[id number]}
--- NOTE | 2021-02-18 15:35 | Procedure Note ---
Procedure Note Date of Service February 18, 2021 GI brief procedure note EGD see full note for details findings: gastritis, no evidence of blood loss nor varices Recs: NPO supportive care consider other causes for elevated lactate such as ischemia, infection Claus Martinez MD Gastroenterology Coding
--- NOTE | 2021-02-18 15:44 | Anesthesiology Progress Note ---
Date of Service February 18, 2021 Anesthesia Post Procedure Vital Signs Vital Signs: Temp Pulse Pulse Resp BP BP Pulse Ox 02/18/21 15:19 124 H 24 100 02/18/21 10:34 118 H 20 104/58 L 98 02/18/21 10:30 110 H 20 99 02/18/21 10:15 126 H 30 H 98 02/18/21 10:03 133 H 24 124/68 100 02/18/21 09:30 121 H 17 99 02/18/21 09:16 124 H 21 99 02/18/21 09:14 126 H 22 169/74 H 99 02/18/21 09:00 118 H 24 02/18/21 08:45 134 H 27 H 176/111 H 02/18/21 08:30 125 H 23 02/18/21 08:16 129 H 25 H 02/18/21 08:15 127 H 20 172/100 H 02/18/21 08:00 118 H 18 02/18/21 07:52 117 H 22 142/71 H 99 02/18/21 07:46 121 H 27 H 98 02/18/21 07:44 122 H 27 H 187/110 H 98 02/18/21 07:43 116 H 22 98 02/18/21 07:30 121 H 23 99 02/18/21 07:15 98.1 F 8 L 197/114 H 99 02/18/21 07:00 117 H 23 99 02/18/21 06:46 117 H 22 100 02/18/21 06:44 116 H 21 132/83 100 02/18/21 06:15 123 H 20 107/79 98 02/18/21 05:19 124 H 131/76 02/18/21 05:15 126 H 22 166/127 H 100 02/18/21 04:22 98.8 F 120 H 20 134/86 99 02/18/21 03:38 120 H 28 H 99 02/18/21 03:24 120 H 22 152/101 H 97 02/18/21 02:14 121 H 18 168/90 H 100 02/18/21 01:44 117 H 19 138/84 99 02/18/21 01:14 122 H 23 143/76 H 98 02/18/21 00:14 98.2 F 116 H 22 147/72 H 100 02/18/21 00:12 128 H 129/70 07/05/21 23:48 127 H 02/17/21 23:14 123 H 25 H 137/64 97 02/17/21 22:45 130 H 30 H 100 02/17/21 22:44 109 H 24 151/73 H 100 02/17/21 22:14 119 H 35 H 141/82 H 100 02/17/21 21:14 118 H 18 131/67 100 02/17/21 20:14 98.1 F 120 H 30 H 132/69 100 02/17/21 19:14 119 H 23 131/69 99 02/17/21 19:10 118 H 35 H 100 02/17/21 19:09 118 H 40 H 95 02/17/21 18:59 121 H 31 H 117/68 97 02/17/21 18:31 115 H 23 98 02/17/21 18:29 116 H 22 128/97 98 02/17/21 18:16 124 H 25 H 98 02/17/21 18:14 125 H 26 H 134/88 98 02/17/21 18:01 126 H 24 96 02/17/21 17:59 125 H 24 125/70 98 02/17/21 17:45 128 H 19 99 02/17/21 17:44 129 H 25 H 117/77 97 02/17/21 17:40 98.8 F 123 H 20 95 02/17/21 17:15 116 H 33 H 95 02/17/21 16:15 98.2 F 140 H 30 H 96/66 L 98 02/17/21 15:46 120 H 30 H 99 Transfer of Care Handoff Completed per policy Notes Mental Status: alert / awake / arousable and participated in evaluation Patient Amnestic to Procedure: Yes Nausea / Vomiting: adequately controlled Pain: adequately controlled Airway Patency, RR, SpO2: stable & adequate BP & HR: stable & adequate Hydration State: stable & adequate Anesthetic Complications: no major complications apparent and Pt Satisfied with anesthetic care
[2021-02-18] MEDS: fentaNYL DRIP 1,250 MCG/250 ML BAG IV SCH (15:47)
[2021-02-18] MEDS: propofoL 1,000 MG/100 ML VIAL IV SCH ×2 (15:47→20:29)
--- NOTE | 2021-02-18 16:16 | XRay Report ---
XR chest 1V portable HISTORY: 75 years-old Male check ETT position - newly intubated acute respiratory failure COMPARISON: Chest radiograph and CTA chest 02/17/2021 TECHNIQUE: Semierect AP view of the chest FINDINGS: Endotracheal tube overlies the midline, 6.8 cm superior to the daxa. Cardiomegaly. Unchanged inters titial coarsening. No pneumothorax, pleural effusion or overt pulmonary edema. There are progressive left greater than right bibasilar opacities. Degenerative changes of the shoulders and spine. IMPRESSION: 1. Endotracheal tube terminates 6.8 cm superior to the daxa. 2. Cardiomegaly. 3. Progressive left greater than right bibasilar opacities suggestive of atelectasis versus pneumonit is. ACT 112: Negative or not required by law. The above report was generated using voice recognition software. It may contain grammatical, syntax o r spelling errors. Electronically signed by: Addy Larose M.D. 02/18/2021 4:14 PM
[2021-02-18 16:51] LABS: iSTAT Allen Test Pass; iSTAT Art Bld Gas pCO2 Correct 35 mmHg (35-46); iSTAT Art Bld Gas pH Corrected 7.456 (7.35-7.45); iSTAT Arterial Blood Gas HCO3 24 meg/L (19-24); iSTAT Arterial Blood Gas pCO2 35 mmHg (35-46); iSTAT Arterial Blood Gas pH 7.45 (7.35-7.45); iSTAT Arterial Blood Gas pO2 411 mmHg (80-95); iSTAT Arterial Blood Gas pO2 C 409; iSTAT Carbon Dioxide 25 mmol/L (24-31); iSTAT FiO2 100 %; iSTAT Hematocrit 18 % (42-52); iSTAT Hemoglobin 6.1 g/dl (14.0-18.0); iSTAT Potassium 3.6 mmol/L (3.3-5.0); iSTAT Site R Radial; iSTAT Sodium 147 mmol/L (135-144)
--- NOTE | 2021-02-18 17:48 | Emergency Department Note ---
Impression & Plan Sepsis, Chronic obstructive pulmonary disease, Acute respiratory failure with hypoxia, KAYKAY (acute kidney injury) ED Provider Note NAME: CATERINA GUIDRY AGE: 75 SEX: M : 1945 ARRIVES VIA: Ambulance INFORMANT: Patient, EMS ED PROVIDER(S): Larry Haynes MD CHIEF COMPLAINT: resp distres HPI: This 75-year-old male brought in by EMS. Per EMS the patient was calling for help from his house. Neighbors heard him and called 911. They found the patient to be hypoxic and placed him on oxygen. Upon arrival to the emergency department the patient is in acute distress and is asking if he is going to . He only responds in one-word answers and is breathing very quickly. Patient is on apixaban as well as methotrexate and prednisone. ROS: Unobtainable due to patient acuity/confusion PAST MEDICAL HISTORY: See Below PAST SURGICAL HISTORY: See Below FAMILY HISTORY: See Below SOCIAL HISTORY: See Below HOME MEDICATIONS: See Below ALLERGIES: See Below VITALS: See Below PHYSICAL EXAMINATION: VITAL SIGNS - Vital signs and nursing notes were reviewed. GENERAL -75-year-old male appearing stated age who is in acute distress. Communicates poorly, somewhat follows commands, moving all 4 extremities SKIN - mottled throughout, diaphoretic HEAD - NC/AT. EYES - PERRL with EOMI bilaterally. Sclera anicteric. Palpebral conjunctiva pink and moist with no injection noted. EARS - No deformities of external structures noted on gross examination bilaterally. NOSE - Midline and without cyanosis. No epistaxis or purulent drainage noted. Septum midline without deviation or septal hematoma noted. MOUTH/OROPHARYNX - + cyanosis. on 15 LNRB NECK - Neck with FROM. Supple to palpation. lymphadenopathy noted. No nuchal rigidity. LUNGS - Chest wall symmetric with +accessory muscle use, +intercostals retractions, + central cyanosis. Normal vesicular breath sounds CTA B/L. No wh eezes, rales, or rhonchi appreciated. CARDIAC - RRR with S1/S2. No murmur, rubs, or gallops appreciated. ABDOMEN - Abdominal contour without pulsations or visible masses. BS normoactive all four quadrants. No tenderness, palpable masses, hepatosplenomegaly, or ascites noted. EXTREMITIES - No clubbing or peripheral cyanosis. No pretibial edema present. +3/5 radial, posterior tibial, and dorsalis pedis pulses palpated throughout. +5/5 strength noted in UE/LE bilaterally. NEUROLOGIC - Cranial nerves II through XII grossly intact. Sensory intact to light touch throughout. MEDICAL DECISION MAKING: Patient was seen and evaluated as above in room C9. Review was performed of nursing notes and vital signs. I did review pertinent previous visits and patient history. After obtaining a thorough history and physical examination the above work up was performed. Patient presents in C9 in acute distress. Sepsis alert was immediately initiated and the patient was moved to a 1. I was grossly concerned with the patient's overall appearance of hypoxia hypotension and tachycardia that he was suffering from a massive PE therefore heparin was ordered but not given. Once IVs were established the patient was immediately sent to CAT scan which confirmed no presence of a PE. Based on this the patient then began a sepsis work-up. He received 2.5 L of normal saline solution. In addition the patient has a large elevation in his white blood cell count. He remained minimally responsive and through multiple episodes of ventricular tachycardia. He was placed on BiPAP and given magnesium he was given large spectrum antibiotics including Zosyn Levaquin and vancomycin. Due to the predn isone use and the hypotension he was also given Solu-Cortef. I did discuss this to case with the registered nurse who felt that the patient could go to the floor. Patient was then discussed with the hospitalist. An order was placed for continuous cardiac monitoring. The monitor shows a rate of 111 with A fib rhythm. The patient was evaluated during a period of high volume and high acuity during the global COVID-19 pandemic, and that diagnosis was suspected/considered upon their initial presentation. Their evaluation, treatment and testing was consistent with current guidelines for patients who present with complaints or symptoms that may be related to COVID-19. Patient was seen while provider was wearing PPE. Triage Nursing notes reviewed. Prior medical records reviewed Vital Signs: reviewed and remarkable for no significant abnormalities Differential diagnosis: Sepsis, UTI, pneumonia, metabolic, electrolyte abnormalities, cardiac sources, intracerebral event, toxicologic, neurologic, as well as other pathologies. ER treatment provided: See below Diagnostics interpreted by me: ECG: Sinus tachycardia right superior axis deviation QTC 463 ventricular rate is 138 EKG is compared to 09/13/2019 questionable change in QRS axis Laboratory studies: As stated above and show below. Imaging studies: See below Consultation(s): Leather Sorter Hospitalist Critical Care: I have personally spent greater than 90 minutes of critical care time in the direct management of this patient. This includes bedside care, interpretation of diagnostic studies, and testing, discussion with consultants, patient, and family members, and other required patient management activities. This 90 minutes is in excess of all separately billable procedures. Past Med/Surg History Medical History Achalasia Degenerative disc disease Esophageal dilatation History of malignant neoplasm of prostate History of nicotine dependence History of non-healing wound PT'S SON REPORTS PT HAD THESE (TO LOWER LEGS) AND HOME NURSING CHECKS BUT HAVE IMPROVED GREATLY History of pneumonia Hx of pancreatitis On home oxygen therapy 3lpm prn Osteoarthritis Paroxysmal atrial fibrillation DX SEP 2019> DID NOT START ELIQUIS PER PATIENTS SON> WEARING HALTER MONITOR CURRENTLY > [facility]> SON REPORTS PT IS VERY NON COMPLIANT WITH MEDS/TREATMENT PLANS Peripheral neuropathy bilateral hands & feet Sleep apnea non-compliant with cpap Solitary pulmonary nodule Surgical History H/O toe surgery History of arthroscopic surgery of shoulder bilateral History of colonoscopy History of cystoscopy with stent History of esophagogastroduodenoscopy (EGD) History of nasal septoplasty History of tonsillectomy Hx of shoulder surgery open left shoulder Family History Other Hypertension Denies family history of Deep vein thrombosis Cancer Social History Smoking Status: Unknown if ever smoked Tobacco Type: Cigarettes Second Hand Exposure: Yes; Preferred Language: Syriac Communication Ability: Unable Visual Impairment: No Limitations Hearing Ability: Normal School Secretary Required: No Beliefs That Will Affect Care: None marital status: Single Current Living Situation: Alone Feels Safe at Home: Yes Assistive Devices: Glasses Allergies Allergies Allergy/AdvReac Type Severity Reaction Status Date / Time No Known Allergies Allergy Unknown Verified 02/17/21 14:01 Home Meds Home Medications Medication Instructions Recorded Confirmed cyanocobalamin (vitamin B-12) 1,000 mcg PO QAM 10/06/19 02/17/21 bupropion HCl 100 mg PO QAM 02/17/21 02/17/21 methotrexate sodium 7.5 mg PO UD 02/17/21 02/17/21 spironolactone 50 mg PO BID 02/17/21 02/17/21 tamsulosin 0.4 mg PO QAM 02/17/21 02/17/21 Previous Rx's Medication Instructions Recorded apixaban 5 mg tablet 5 mg PO BID #180 tab 10/21/20 aripiprazole 5 mg tablet 5 mg PO QAM #90 tab 10/21/20 cholecalciferol (vitamin D3) 10 800 unit PO QAM #90 tab 10/21/20 mcg (400 unit) tablet furosemide 20 mg tablet 20 mg PO QAM #90 tab 10/21/20 metoprolol tartrate 25 mg tablet 25 mg PO BID #180 tab 10/21/20 potassium chloride 20 mEq 20 meq PO QAM #90 tab 10/21/20 tablet,extended release prednisone 1 mg tablet 1 mg PO .COMPLEX #120 tab 10/21/20 prednisone 5 mg tablet 10 mg PO DAILY #90 tab 10/21/20 simvastatin 40 mg tablet 40 mg PO QPM #90 tab 10/21/20 venlafaxine 150 mg 150 mg PO QAM #90 cap 10/21/20 capsule,extended release 24 hr venlafaxine 75 mg capsule,extended 75 mg PO QAM #90 cap 10/21/20 release 24 hr folic acid 1 mg tablet 1 mg PO QAM #90 tab 11/18/20 oxycodone-acetaminophen 10 mg-325 1 tab PO Q4H PRN #150 tab 01/17/21 mg tablet Results & Data (ED) Home Medications Current Medication List: was personally reviewed by me Laboratory Data Attestation: I reviewed the patient's lab results. Result diagrams: 02/18/21 10:55 02/18/21 12:46 Lab Results 02/17/21 02/17/21 02/17/21 Range/Units 11:51 11:51 11:51 WBC 27.22 H (4.8-10.8) K/uL RBC 3.48 L (4.7-6.1) M/uL Hgb 11.9 L (14.0-18.0) g/dL Hct 36.7 L (42-52) % MCV 105.5 H (80-100) fL MCH 34.2 H (25-34) pg MCHC 32.4 (32-36) g/dL RDW Std Deviation 57.2 H (36.4-46.3) fL RDW Coeff of Melba 14.9 H (11.5-14.5) % Plt Count 322 (130-400) K/uL MPV 10.8 H (7.4-10.4) fL Immature Gran % (Auto) 3.2 % Neut % (Auto) 85.8 % Lymph % (Auto) 6.3 % Noble % (Auto) 4.6 % Eos % (Auto) 0.0 % Baso % (Auto) 0.1 % Neut # (Auto) 23.35 H (1.4-6.5) K/uL Lymph # (Auto) 1.72 (1.2-3.4) K/uL Noble # (Auto) 1.24 H (0.11-0.59) K/uL Eos # (Auto) 0.00 (0-0.5) K/uL Baso # (Auto) 0.04 (0-0.2) K/uL Immature Gran # (Auto) 0.87 H (0.00-0.02) K/uL Absolute Nucleated RBC 0.05 H (0-0) K/uL Nucleated RBC % (auto) 0.2 % PT INR APTT PTT Ratio Heparin Anti-Xa, LM Wt (< 0.10) IU/ML ABG pH (7.35-7.45) ABG pCO2 (35-46) mmHg ABG pO2 (80-95) mmHg ABG HCO3 (19-24) mmol/L ABG O2 Saturation (90-95) % ABG Base Excess (-9-1.8) mEq/L Kodak Test (Pos) Barometric Pressure mm/Hg Oxygen Given Sodium 142 (136-145) mmol/L Potassium 5.1 (3.5-5.1) mmol/L Chloride 105 (98-107) mmol/L Carbon Dioxide 20 L (21-32) mmol/L Anion Gap 18.0 H (3-11) BUN 63 H (7-18) mg/dl Creatinine 1.81 H (0.6-1.4) mg/dl Est Cr Clr Drug Dosing 46.9 ml/min Est GFR ( Amer) 41.2 ml/min Est GFR (Non-Af Amer) 35.5 ml/min BUN/Creatinine Ratio 34.7 H (10-20) Glucose 244 H (70-99) mg/dl Lactate (0.4-2.0) mmol/L Calcium 9.2 (8.5-10.1) mg/dl Magnesium 1.9 (1.8-2.4) mg/dl Total Bilirubin 1.1 H (0.2-1) mg/dl AST 13 L (15-37) U/L ALT 21 (12-78) U/L Alkaline Phosphatase 62 (45-117) U/L Troponin I < 0.015 (0-0.045) ng/ml NT-Pro-B Natriuret Pep 1143 (0-1800) pg/ml Total Protein 6.6 (6.4-8.2) gm/dl Albumin 3.1 L (3.4-5.0) gm/dl Globulin 3.5 (2.5-4.0) gm/dl Albumin/Globulin Ratio 0.9 (0.9-2) Amylase (25-115) U/L Lipase (73-393) U/L Procalcitonin Cancelled Random Cortisol mcg/dl Urine Color Urine Appearance (Clear) Urine pH (4.5-7.5) Ur Specific [place] (1.000-1.030) Urine Protein (Negative) Urine Glucose (UA) (Negative) Urine Ketones (Negative) Urine Blood (Negative) Urine Nitrite (Negative) Urine Bilirubin (Negative) Urine Urobilinogen (Negative) Ur Leukocyte Esterase (Negative) Urine WBC (Auto) (0-5) /hpf Urine RBC (Auto) (0-4) /hpf U Hyaline Cast (Auto) (0-5) /lpf U Epithel Cells (Auto) (0-5) /lpf Urine Bacteria (Auto) (Negative) COVID-19 Eval Order SARS-CoV-2 (PCR) (Negative) Bld Cult Staph aureus PCR (Negative) Blood Culture MRSA PCR (Negative) 02/17/21 02/17/21 02/17/21 Range/Units 11:51 11:51 12:26 WBC (4.8-10.8) K/uL RBC (4.7-6.1) M/uL Hgb (14.0-18.0) g/dL Hct (42-52) % MCV (80-100) fL MCH (25-34) pg MCHC (32-36) g/dL RDW Std Deviation (36.4-46.3) fL RDW Coeff of Melba (11.5-14.5) % Plt Count (130-400) K/uL MPV (7.4-10.4) fL Immature Gran % (Auto) % Neut % (Auto) % Lymph % (Auto) % Noble % (Auto) % Eos % (Auto) % Baso % (Auto) % Neut # (Auto) (1.4-6.5) K/uL Lymph # (Auto) (1.2-3.4) K/uL Noble # (Auto) (0.11-0.59) K/uL Eos # (Auto) (0-0.5) K/uL Baso # (Auto) (0-0.2) K/uL Immature Gran # (Auto) (0.00-0.02) K/uL Absolute Nucleated RBC (0-0) K/uL Nucleated RBC % (auto) % PT Cancelled INR Cancelled APTT Cancelled PTT Ratio Cancelled Heparin Anti-Xa, LM Wt (< 0.10) IU/ML ABG pH (7.35-7.45) ABG pCO2 (35-46) mmHg ABG pO2 (80-95) mmHg ABG HCO3 (19-24) mmol/L ABG O2 Saturation (90-95) % ABG Base Excess (-9-1.8) mEq/L Kodak Test (Pos) Barometric Pressure mm/Hg Oxygen Given Sodium (136-145) mmol/L Potassium (3.5-5.1) mmol/L Chloride (98-107) mmol/L Carbon Dioxide (21-32) mmol/L Anion Gap (3-11) BUN (7-18) mg/dl Creatinine (0.6-1.4) mg/dl Est Cr Clr Drug Dosing ml/min Est GFR ( Amer) ml/min Est GFR (Non-Af Amer) ml/min BUN/Creatinine Ratio (10-20) Glucose (70-99) mg/dl Lactate (0.4-2.0) mmol/L Calcium (8.5-10.1) mg/dl Magnesium (1.8-2.4) mg/dl Total Bilirubin (0.2-1) mg/dl AST (15-37) U/L ALT (12-78) U/L Alkaline Phosphatase (45-117) U/L Troponin I (0-0.045) ng/ml NT-Pro-B Natriuret Pep (0-1800) pg/ml Total Protein (6.4-8.2) gm/dl Albumin (3.4-5.0) gm/dl Globulin (2.5-4.0) gm/dl Albumin/Globulin Ratio (0.9-2) Amylase 234 H (25-115) U/L Lipase 28 L (73-393) U/L Procalcitonin Random Cortisol mcg/dl Urine Color Urine Appearance (Clear) Urine pH (4.5-7.5) Ur Specific [place] (1.000-1.030) Urine Protein (Negative) Urine Glucose (UA) (Negative) Urine Ketones (Negative) Urine Blood (Negative) Urine Nitrite (Negative) Urine Bilirubin (Negative) Urine Urobilinogen (Negative) Ur Leukocyte Esterase (Negative) Urine WBC (Auto) (0-5) /hpf Urine RBC (Auto) (0-4) /hpf U Hyaline Cast (Auto) (0-5) /lpf U Epithel Cells (Auto) (0-5) /lpf Urine Bacteria (Auto) (Negative) COVID-19 Eval Order SARS-CoV-2 (PCR) (Negative) Bld Cult Staph aureus PCR Negative (Negative) Blood Culture MRSA PCR Negative (Negative) 02/17/21 02/17/21 02/17/21 Range/Units 12:32 12:32 12:32 WBC (4.8-10.8) K/uL RBC (4.7-6.1) M/uL Hgb (14.0-18.0) g/dL Hct (42-52) % MCV (80-100) fL MCH (25-34) pg MCHC (32-36) g/dL RDW Std Deviation (36.4-46.3) fL RDW Coeff of Melba (11.5-14.5) % Plt Count (130-400) K/uL MPV (7.4-10.4) fL Immature Gran % (Auto) % Neut % (Auto) % Lymph % (Auto) % Noble % (Auto) % Eos % (Auto) % Baso % (Auto) % Neut # (Auto) (1.4-6.5) K/uL Lymph # (Auto) (1.2-3.4) K/uL Noble # (Auto) (0.11-0.59) K/uL Eos # (Auto) (0-0.5) K/uL Baso # (Auto) (0-0.2) K/uL Immature Gran # (Auto) (0.00-0.02) K/uL Absolute Nucleated RBC (0-0) K/uL Nucleated RBC % (auto) % PT 14.4 H INR 1.5 H APTT 22.8 PTT Ratio 0.9 Heparin Anti-Xa, LM Wt > 1.50 (< 0.10) IU/ML ABG pH (7.35-7.45) ABG pCO2 (35-46) mmHg ABG pO2 (80-95) mmHg ABG HCO3 (19-24) mmol/L ABG O2 Saturation (90-95) % ABG Base Excess (-9-1.8) mEq/L Kodak Test (Pos) Barometric Pressure mm/Hg Oxygen Given Sodium (136-145) mmol/L Potassium (3.5-5.1) mmol/L Chloride (98-107) mmol/L Carbon Dioxide (21-32) mmol/L Anion Gap (3-11) BUN (7-18) mg/dl Creatinine (0.6-1.4) mg/dl Est Cr Clr Drug Dosing ml/min Est GFR ( Amer) ml/min Est GFR (Non-Af Amer) ml/min BUN/Creatinine Ratio (10-20) Glucose (70-99) mg/dl Lactate 14.6 H* (0.4-2.0) mmol/L Calcium (8.5-10.1) mg/dl Magnesium (1.8-2.4) mg/dl Total Bilirubin (0.2-1) mg/dl AST (15-37) U/L ALT (12-78) U/L Alkaline Phosphatase (45-117) U/L Troponin I (0-0.045) ng/ml NT-Pro-B Natriuret Pep (0-1800) pg/ml Total Protein (6.4-8.2) gm/dl Albumin (3.4-5.0) gm/dl Globulin (2.5-4.0) gm/dl Albumin/Globulin Ratio (0.9-2) Amylase (25-115) U/L Lipase (73-393) U/L Procalcitonin Random Cortisol 66.51 mcg/dl Urine Color Urine Appearance (Clear) Urine pH (4.5-7.5) Ur Specific [place] (1.000-1.030) Urine Protein (Negative) Urine Glucose (UA) (Negative) Urine Ketones (Negative) Urine Blood (Negative) Urine Nitrite (Negative) Urine Bilirubin (Negative) Urine Urobilinogen (Negative) Ur Leukocyte Esterase (Negative) Urine WBC (Auto) (0-5) /hpf Urine RBC (Auto) (0-4) /hpf U Hyaline Cast (Auto) (0-5) /lpf U Epithel Cells (Auto) (0-5) /lpf Urine Bacteria (Auto) (Negative) COVID-19 Eval Order SARS-CoV-2 (PCR) (Negative) Bld Cult Staph aureus PCR (Negative) Blood Culture MRSA PCR (Negative) 02/17/21 02/17/21 02/17/21 Range/Units 12:32 13:20 13:30 WBC (4.8-10.8) K/uL RBC (4.7-6.1) M/uL Hgb (14.0-18.0) g/dL Hct (42-52) % MCV (80-100) fL MCH (25-34) pg MCHC (32-36) g/dL RDW Std Deviation (36.4-46.3) fL RDW Coeff of Melba (11.5-14.5) % Plt Count (130-400) K/uL MPV (7.4-10.4) fL Immature Gran % (Auto) % Neut % (Auto) % Lymph % (Auto) % Noble % (Auto) % Eos % (Auto) % Baso % (Auto) % Neut # (Auto) (1.4-6.5) K/uL Lymph # (Auto) (1.2-3.4) K/uL Noble # (Auto) (0.11-0.59) K/uL Eos # (Auto) (0-0.5) K/uL Baso # (Auto) (0-0.2) K/uL Immature Gran # (Auto) (0.00-0.02) K/uL Absolute Nucleated RBC (0-0) K/uL Nucleated RBC % (auto) % PT INR APTT PTT Ratio Heparin Anti-Xa, LM Wt (< 0.10) IU/ML ABG pH (7.35-7.45) ABG pCO2 (35-46) mmHg ABG pO2 (80-95) mmHg ABG HCO3 (19-24) mmol/L ABG O2 Saturation (90-95) % ABG Base Excess (-9-1.8) mEq/L Kodak Test (Pos) Barometric Pressure mm/Hg Oxygen Given Sodium (136-145) mmol/L Potassium (3.5-5.1) mmol/L Chloride (98-107) mmol/L Carbon Dioxide (21-32) mmol/L Anion Gap (3-11) BUN (7-18) mg/dl Creatinine (0.6-1.4) mg/dl Est Cr Clr Drug Dosing ml/min Est GFR ( Amer) ml/min Est GFR (Non-Af Amer) ml/min BUN/Creatinine Ratio (10-20) Glucose (70-99) mg/dl Lactate (0.4-2.0) mmol/L Calcium (8.5-10.1) mg/dl Magnesium (1.8-2.4) mg/dl Total Bilirubin (0.2-1) mg/dl AST (15-37) U/L ALT (12-78) U/L Alkaline Phosphatase (45-117) U/L Troponin I (0-0.045) ng/ml NT-Pro-B Natriuret Pep (0-1800) pg/ml Total Protein (6.4-8.2) gm/dl Albumin (3.4-5.0) gm/dl Globulin (2.5-4.0) gm/dl Albumin/Globulin Ratio (0.9-2) Amylase (25-115) U/L Lipase (73-393) U/L Procalcitonin < 0.05 Random Cortisol mcg/dl Urine Color Yellow Urine Appearance Clear (Clear) Urine pH 5.0 (4.5-7.5) Ur Specific [place] > 1.045 H (1.000-1.030) Urine Protein Trace H (Negative) Urine Glucose (UA) Trace H (Negative) Urine Ketones 1+ H (Negative) Urine Blood 2+ H (Negative) Urine Nitrite Negative (Negative) Urine Bilirubin Negative (Negative) Urine Urobilinogen Negative (Negative) Ur Leukocyte Esterase Negative (Negative) Urine WBC (Auto) 5-10 H (0-5) /hpf Urine RBC (Auto) 10-30 H (0-4) /hpf U Hyaline Cast (Auto) 1-5 (0-5) /lpf U Epithel Cells (Auto) 10-20 H (0-5) /lpf Urine Bacteria (Auto) Negative (Negative) COVID-19 Eval Order Covid19 at [facility] [place] SARS-CoV-2 (PCR) (Negative) Bld Cult Staph aureus PCR (Negative) Blood Culture MRSA PCR (Negative) 02/17/21 02/17/21 Range/Units 13:30 13:38 WBC (4.8-10.8) K/uL RBC (4.7-6.1) M/uL Hgb (14.0-18.0) g/dL Hct (42-52) % MCV (80-100) fL MCH (25-34) pg MCHC (32-36) g/dL RDW Std Deviation (36.4-46.3) fL RDW Coeff of Melba (11.5-14.5) % Plt Count (130-400) K/uL MPV (7.4-10.4) fL Immature Gran % (Auto) % Neut % (Auto) % Lymph % (Auto) % Noble % (Auto) % Eos % (Auto) % Baso % (Auto) % Neut # (Auto) (1.4-6.5) K/uL Lymph # (Auto) (1.2-3.4) K/uL Noble # (Auto) (0.11-0.59) K/uL Eos # (Auto) (0-0.5) K/uL Baso # (Auto) (0-0.2) K/uL Immature Gran # (Auto) (0.00-0.02) K/uL Absolute Nucleated RBC (0-0) K/uL Nucleated RBC % (auto) % PT INR APTT PTT Ratio Heparin Anti-Xa, LM Wt (< 0.10) IU/ML ABG pH 7.32 L (7.35-7.45) ABG pCO2 33 L (35-46) mmHg ABG pO2 160 H (80-95) mmHg ABG HCO3 17 L (19-24) mmol/L ABG O2 Saturation 99.2 H (90-95) % ABG Base Excess -8.2 (-9-1.8) mEq/L Kodak Test Pos (Pos) Barometric Pressure 733.3 mm/Hg Oxygen Given 50% Sodium (136-145) mmol/L Potassium (3.5-5.1) mmol/L Chloride (98-107) mmol/L Carbon Dioxide (21-32) mmol/L Anion Gap (3-11) BUN (7-18) mg/dl Creatinine (0.6-1.4) mg/dl Est Cr Clr Drug Dosing ml/min Est GFR ( Amer) ml/min Est GFR (Non-Af Amer) ml/min BUN/Creatinine Ratio (10-20) Glucose (70-99) mg/dl Lactate (0.4-2.0) mmol/L Calcium (8.5-10.1) mg/dl Magnesium (1.8-2.4) mg/dl Total Bilirubin (0.2-1) mg/dl AST (15-37) U/L ALT (12-78) U/L Alkaline Phosphatase (45-117) U/L Troponin I (0-0.045) ng/ml NT-Pro-B Natriuret Pep (0-1800) pg/ml Total Protein (6.4-8.2) gm/dl Albumin (3.4-5.0) gm/dl Globulin (2.5-4.0) gm/dl Albumin/Globulin Ratio (0.9-2) Amylase (25-115) U/L Lipase (73-393) U/L Procalcitonin Random Cortisol mcg/dl Urine Color Urine Appearance (Clear) Urine pH (4.5-7.5) Ur Specific [place] (1.000-1.030) Urine Protein (Negative) Urine Glucose (UA) (Negative) Urine Ketones (Negative) Urine Blood (Negative) Urine Nitrite (Negative) Urine Bilirubin (Negative) Urine Urobilinogen (Negative) Ur Leukocyte Esterase (Negative) Urine WBC (Auto) (0-5) /hpf Urine RBC (Auto) (0-4) /hpf U Hyaline Cast (Auto) (0-5) /lpf U Epithel Cells (Auto) (0-5) /lpf Urine Bacteria (Auto) (Negative) COVID-19 Eval Order SARS-CoV-2 (PCR) NEGATIVE (Negative) Bld Cult Staph aureus PCR (Negative) Blood Culture MRSA PCR (Negative) Administered Medications Aripiprazole (Aripiprazole 5 Mg Tab) 5 mg PO [facility] Stop: 03/20/21 08:59 Last Admin: 02/18/21 08:02 Dose: Not Given Documented by: [id number] Bupropion HCl (Bupropion Sr 100 Mg Tabcr) 100 mg PO [facility] Stop: 03/20/21 08:59 Last Admin: 02/18/21 08:02 Dose: Not Given Documented by: [id number] Cyanocobalamin (Cyanocobalamin 500 Mcg Tablet (Vitamin B-12)) 1,000 mcg PO [facility] Stop: 03/20/21 08:59 Last Admin: 02/18/21 08:02 Dose: Not Given Documented by: [id number] Folic Acid (Folic Acid 1 Mg Tab) 1 mg PO [facility] Stop: 03/20/21 08:59 Last Admin: 02/18/21 08:02 Dose: Not Given Documented by: [id number] Insulin Human Regular 250 (units/ Sodium Chloride) 250 mls @ 0 mls/hr IV .Q0M [facility]; Protocol Stop: 03/19/21 20:44 Last Titration: 02/18/21 15:10 Dose: 0 units/hr, 0 mls/hr Documented by: [id number] Cosigned by: [id number] Titration: 02/18/21 08:01 Dose: 1.4 units/hr, 1.4 mls/hr Documented by: [id number] Cosigned by: [id number] Titration: 02/18/21 06:59 Dose: 1.4 units/hr, 1.4 mls/hr Documented by: [id number] Cosigned by: [id number] Titration: 02/18/21 04:01 Dose: 1.4 units/hr, 1.4 mls/hr Documented by: [id number] Cosigned by: [id number] Titration: 02/18/21 03:00 Dose: 1.8 units/hr, 1.8 mls/hr Documented by: [id number] Cosigned by: [id number] Titration: 02/18/21 02:03 Dose: 2.3 units/hr, 2.3 mls/hr Documented by: [id number] Cosigned by: [id number] Titration: 02/18/21 01:00 Dose: 2.9 units/hr, 2.9 mls/hr Documented by: [id number] Cosigned by: [id number] Titration: 02/17/21 22:21 Dose: 3.6 units/hr, 3.6 mls/hr Documented by: [id number] Cosigned by: [id number] Admin: 02/17/21 21:14 Dose: 3 units/hr, 3 mls/hr Documented by: [id number] Cosigned by: [id number] Pantoprazole Sodium 40 mg/ (Dextrose) 100 mls @ 20 mls/hr IV Q5H [facility] Stop: 03/20/21 03:29 Last Admin: 02/18/21 13:42 Dose: 8 mg/hr, 20 mls/hr Documented by: [id number] Infusion: 02/18/21 13:36 Dose: 8 mg/hr, 20 mls/hr Documented by: [id number] Admin: 02/18/21 08:36 Dose: 8 mg/hr, 20 mls/hr Documented by: [id number] Infusion: 02/18/21 08:27 Dose: 8 mg/hr, 20 mls/hr Documented by: [id number] Admin: 02/18/21 03:27 Dose: 8 mg/hr, 20 mls/hr Documented by: [id number] Folic Acid 1 mg/ Syringe 10 mls @ 5 mls/min IV QAM BETH Stop: 03/20/21 08:59 Last Admin: 02/18/21 08:36 Dose: 5 mls/min Documented by: [id number] Vancomycin HCl 1,500 mg/ (Sodium Chloride) 530 mls @ 200 mls/hr IV Q24H BETH Stop: 02/28/21 11:59 Last Infusion: 02/18/21 16:26 Dose: 0 mls/hr Documented by: [id number] Admin: 02/18/21 11:55 Dose: 200 mls/hr Documented by: [id number] Ceftriaxone Sodium 2,000 mg/ (Dextrose) 70 mls @ 140 mls/hr IV Q12H BETH Stop: 02/28/21 10:59 Last Infusion: 02/18/21 11:55 Dose: 0 mls/hr Documented by: [id number] Admin: 02/18/21 11:16 Dose: 140 mls/hr Documented by: [id number] Ampicillin Sodium 2,000 mg/ (Sodium Chloride) 100 mls @ 200 mls/hr IV Q6H BETH; Protocol Stop: 02/28/21 11:59 Last Infusion: 02/18/21 11:55 Dose: 0 mls/hr Documented by: [id number] Admin: 02/18/21 11:20 Dose: 200 mls/hr Documented by: [id number] Metronidazole (Flagyl) 500 mg in 100 mls @ 100 mls/hr IV Q8H BETH Stop: 02/28/21 11:29 Last Infusion: 02/18/21 13:09 Dose: 0 mls/hr Documented by: [id number] Admin: 02/18/21 11:49 Dose: 100 mls/hr Documented by: [id number] Potassium Chloride/Sodium Chloride (1/2 Nss + 20meq Kcl 1000ml) 20 meq in 1,000 mls @ 150 mls/hr IV .Q6H40M BETH Stop: 03/20/21 14:59 Last Admin: 02/18/21 15:10 Dose: 150 mls/hr Documented by: [id number] Propofol (Diprivan) 1,000 mg in 100 mls @ 17.865 mls/hr IV .Q5H36M BETH; Protocol Stop: 02/21/21 15:44 Last Titration: 02/18/21 17:07 Dose: 25 mcg/kg/min, 17.9 mls/hr Documented by: [id number] Admin: 02/18/21 15:47 Dose: 20 mcg/kg/min, 14.3 mls/hr Documented by: [id number] Cosigned by: [id number] Fentanyl Citrate (Fentanyl Drip) 1,250 mcg in 250 mls @ 10 mls/hr IV .Q25H BETH; Protocol Stop: 03/04/21 15:44 Last Titration: 02/18/21 17:07 Dose: 50 mcg/hr, 10 mls/hr Documented by: [id number] Cosigned by: [id number] Admin: 02/18/21 15:47 Dose: 25 mcg/hr, 5 mls/hr Documented by: [id number] Cosigned by: [id number] Insulin Aspart (Insulin Aspart 100 Units/Ml 3 Ml Pen) 0 units SC Q4 [facility] Stop: 03/20/21 15:59 Last Admin: 02/18/21 17:08 Dose: Not Given Documented by: [id number] Cosigned by: [id number] Metoprolol Tartrate (Metoprolol Tartrate 25 Mg Tab) 25 mg PO BID [facility] Stop: 03/19/21 20:59 Last Admin: 02/18/21 08:02 Dose: Not Given Documented by: [id number] Admin: 02/17/21 21:38 Dose: Not Given Documented by: [id number] Metoprolol Tartrate (Metoprolol Tartrate 1 Mg/Ml Vial) 2.5 mg IV Q6 [facility] Stop: 03/20/21 05:59 Last Admin: 02/18/21 13:41 Dose: Not Given Documented by: [id number] Admin: 02/18/21 05:19 Dose: 2.5 mg Documented by: [id number] Potassium Chloride (Potassium Chloride Crtab 20 Meq Tabcr) [facility] [place] Stop: 03/20/21 08:59 Last Admin: 02/18/21 08:02 Dose: Not Given Documented by: [id number] Simvastatin (Simvastatin 40 Mg Tab) 40 mg PO QPM [facility] Stop: 03/19/21 20:59 Last Admin: 02/17/21 21:38 Dose: Not Given Documented by: [id number] Spironolactone (Spironolactone 25 Mg Tab) 50 mg PO BID17 [facility] Stop: 03/19/21 16:59 Last Admin: 02/17/21 18:13 Dose: Not Given Documented by: [id number] Tamsulosin HCl (Tamsulosin Hcl 0.4 Mg Cap) 0.4 [facility] [place] Stop: 03/20/21 08:59 Last Admin: 02/18/21 08:02 Dose: Not Given Documented by: [id number] Venlafaxine HCl (Venlafaxine Hcl Xr 75 Mg Capxr) 225 [facility] [place] Stop: 03/20/21 08:59 Last Admin: 02/18/21 08:03 Dose: Not Given Documented by: [id number] Vitamin D (Cholecalciferol 400 Units 10 Mcg Tab) 800 units PO QAM [facility] Stop: 03/20/21 08:59 Last Admin: 02/18/21 08:02 Dose: Not Given Documented by: [id number] Discontinued Medications Albuterol (Albut/Ipratrop 3mg/0.5mg Neb 3 Ml Vial) 3 ml NEB QIDR [facility] Stop: 03/19/21 16:05 Last Admin: 02/18/21 11:05 Dose: Not Given Documented by: [id number] Admin: 02/18/21 07:43 Dose: 3 ml Documented by: [id number] Admin: 02/17/21 19:07 Dose: 3 ml Documented by: [id number] Admin: 02/17/21 17:35 Dose: Not Given Documented by: [id number] Dextrose (Dextrose 50% 50 Ml Syringe) 25 ml IV NOW ONE Stop: 02/17/21 21:10 Last Admin: 02/17/21 21:14 Dose: 25 ml Documented by: [id number] Fentanyl Citrate (Fentanyl Citrate 1250mcg/250ml Nss) Confirm Administered Dose 1,250 mcg IV .STK-MED ONE Stop: 02/18/21 15:35 Last Admin: 02/18/21 16:22 Dose: Not Given Documented by: [id number] Furosemide (Furosemide 40 Mg/4 Ml Vial) 40 mg IV NOW STA Stop: 02/17/21 12:02 Last Admin: 02/17/21 13:33 Dose: Not Given Documented by: [id number] Furosemide (Furosemide 40 Mg/4 Ml Vial) Confirm Administered Dose 40 mg IV .STK- MED ONE Stop: 02/17/21 12:02 Last Admin: 02/17/21 13:33 Dose: Not Given Documented by: [id number] Heparin Sodium (Porcine) (Heparin Sod (Porcine) 1000 Unit/Ml) Confirm Administered Dose 1,000 units .ROUTE .STK-MED ONE Stop: 02/17/21 12:05 Last Admin: 02/17/21 13:33 Dose: Not Given Documented by: [id number] Heparin Sodium/Dextrose (Heparin 10070 Unit/500 Ml D5w) Confirm Administered Dose 25,000 units IV .STK-MED ONE Stop: 02/17/21 12:05 Last Admin: 02/17/21 13:33 Dose: Not Given Documented by: [id number] Hydrocortisone Sodium Succinate (Hydrocortisone Sod Succinate 100 Mg/2 Ml Vial) 100 mg IV NOW STA Stop: 02/17/21 12:27 Last Admin: 02/17/21 13:39 Dose: 100 mg Documented by: [id number] Piperacillin Sod/Tazobactam Sod (Zosyn) 4.5 gm in 120 mls @ 240 mls/hr IV NOW ONE Stop: 02/17/21 12:37 Last Infusion: 02/17/21 13:11 Dose: 0 mls/hr Documented by: [id number] Admin: 02/17/21 12:41 Dose: 240 mls/hr Documented by: [id number] Levofloxacin/Dextrose (Levaquin/D5w) 750 mg in 150 mls @ 100 mls/hr IV NOW STA Stop: 02/17/21 13:37 Last Infusion: 02/17/21 14:20 Dose: 0 mls/hr Documented by: [id number] Admin: 02/17/21 12:42 Dose: 100 mls/hr Documented by: [id number] Sodium Chloride (Nss 1000ml) 1,000 mls @ 999 mls/hr IV .Q1H1M ONE Stop: 02/17/21 13:22 Last Infusion: 02/17/21 13:30 Dose: 0 mls/hr Documented by: [id number] Admin: 02/17/21 12:30 Dose: 999 mls/hr Documented by: [id number] Vancomycin HCl 2,500 mg/ (Sodium Chloride) 550 mls @ 200 mls/hr IV NOW ONE Stop: 02/17/21 15:06 Last Infusion: 02/17/21 16:41 Dose: 0 mls/hr Documented by: [id number] Admin: 02/17/21 13:33 Dose: 200 mls/hr Documented by: [id number] Sodium Chloride (Nss 1000ml) 1,000 mls @ 999 mls/hr IV .Q1H1M ONE Stop: 02/17/21 13:28 Last Infusion: 02/17/21 13:30 Dose: 0 mls/hr Documented by: [id number] Admin: 02/17/21 12:30 Dose: 999 mls/hr Documented by: [id number] Sodium Chloride (Nss 1000ml) 500 mls @ 999 mls/hr IV .Q31M ONE Stop: 02/17/21 13:02 Last Infusion: 02/17/21 14:05 Dose: 0 mls/hr Documented by: [id number] Admin: 02/17/21 13:35 Dose: 999 mls/hr Documented by: [id number] Magnesium Sulfate 1 gm/ Sodium (Chloride) 10 mls @ 60 mls/hr IV NOW ONE Stop: 02/17/21 12:54 Last Infusion: 02/17/21 12:50 Dose: 0 mls/hr Documented by: [id number] Admin: 02/17/21 12:45 Dose: 60 mls/hr Documented by: [id number] Sodium Chloride (Nss 1000ml) 1,000 mls @ 100 mls/hr IV .Q10H [facility] Stop: 03/19/21 16:05 Last Admin: 02/17/21 18:17 Dose: Not Given Documented by: [id number] Sodium Chloride (Nss 1000ml) 1,000 mls @ 100 mls/hr IV .Q10H [facility] Stop: 03/19/21 16:05 Last Admin: 02/17/21 18:17 Dose: Not Given Documented by: [id number] Piperacillin Sod/Tazobactam (Sod 3.375 gm/ Dextrose) 115 mls @ 28.75 mls/hr IV Q8H [facility]; Protocol Stop: 02/24/21 17:59 Last Admin: 02/18/21 16:24 Dose: Not Given Documented by: [id number] Infusion: 02/18/21 08:01 Dose: 0 mls/hr Documented by: [id number] Admin: 02/18/21 01:31 Dose: 28.8 mls/hr Documented by: [id number] Infusion: 02/18/21 00:09 Dose: 0 mls/hr Documented by: [id number] Admin: 02/17/21 19:35 Dose: 28.8 mls/hr Documented by: [id number] Methylprednisolone 40 mg/ (Syringe) 0.64 mls @ 1.5 mls/min IV Q6H [facility] Stop: 03/19/21 17:59 Last Admin: 02/18/21 00:16 Dose: Not Given Documented by: [id number] Methylprednisolone 40 mg/ (Syringe) 0.64 mls @ 1.5 mls/min IV Q8 [facility] Stop: 03/19/21 21:59 Last Admin: 02/18/21 05:22 Dose: 1.5 mls/min Documented by: [id number] Admin: 02/17/21 21:54 Dose: 1.5 mls/min Documented by: [id number] Famotidine 20 mg/ Syringe 5 mls @ 2.5 mls/min IV DAILY [facility] Stop: 03/19/21 18:59 Last Admin: 02/17/21 19:36 Dose: 2.5 mls/min Documented by: [id number] Parenteral Electrolytes (Normosol-R) 1,000 mls @ 125 mls/hr IV .Q8H [facility] Stop: 03/19/21 19:29 Last Infusion: 02/17/21 21:21 Dose: 0 mls/hr Documented by: [id number] Admin: 02/17/21 19:39 Dose: 125 mls/hr Documented by: [id number] Dextrose/Sodium Chloride (D5w And 1/2nss) 1,000 mls @ 200 mls/hr IV .Q5H [facility] Stop: 03/19/21 20:44 Last Infusion: 02/18/21 03:08 Dose: 0 mls/hr Documented by: [id number] Admin: 02/18/21 01:31 Dose: 200 mls/hr Documented by: [id number] Infusion: 02/18/21 01:31 Dose: 200 mls/hr Documented by: [id number] Admin: 02/17/21 20:58 Dose: 200 mls/hr Documented by: [id number] Parenteral Electrolytes (Normosol-R) 500 mls @ 999 mls/hr IV .Q31M ONE Stop: 02/17/21 21:12 Last Infusion: 02/17/21 21:21 Dose: 0 mls/hr Documented by: [id number] Admin: 02/17/21 20:57 Dose: 999 mls/hr Documented by: [id number] Levetiracetam 2,000 mg/ Sodium (Chloride) 270 mls @ 999 mls/hr IV NOW ONE Stop: 02/17/21 21:16 Last Infusion: 02/17/21 21:57 Dose: 0 mls/hr Documented by: [id number] Admin: 02/17/21 21:20 Dose: 999 mls/hr Documented by: [id number] Potassium Chloride/Dextrose/Sod Cl (D5w And 1/2nss + 20meq Kcl) 20 meq in 1,000 mls @ 150 mls/hr IV .Q6H40M [facility] Stop: 03/20/21 02:59 Last Infusion: 02/18/21 14:30 Dose: 0 mls/hr Documented by: [id number] Admin: 02/18/21 10:43 Dose: 150 mls/hr Documented by: [id number] Infusion: 02/18/21 09:50 Dose: 150 mls/hr Documented by: [id number] Admin: 02/18/21 03:09 Dose: 150 mls/hr Documented by: [id number] Sodium Phosphate 15 mmol/ (Sodium Chloride) 255 mls @ 102 mls/hr IV 0300 ONE Stop: 02/18/21 05:29 Last Infusion: 02/18/21 06:24 Dose: 0 mls/hr Documented by: [id number] Admin: 02/18/21 03:26 Dose: 102 mls/hr Documented by: [id number] Pantoprazole Sodium 80 mg/ (Dextrose) 120 mls @ 400 mls/hr IV 0300 ONE Stop: 02/18/21 03:17 Last Infusion: 02/18/21 04:36 Dose: 0 mls/hr Documented by: [id number] Admin: 02/18/21 03:27 Dose: 400 mls/hr Documented by: [id number] Magnesium Sulfate/Dextrose (Magnesium Sulfate / D5w) 1 gm in 100 mls @ 50 mls/hr IV ONE ONE Stop: 02/18/21 07:36 Last Infusion: 02/18/21 08:28 Dose: 0 mls/hr Documented by: [id number] Admin: 02/18/21 06:25 Dose: 50 mls/hr Documented by: [id number] Potassium Phosphate 15 mmol/ (Sodium Chloride) 255 mls @ 88 mls/hr IV ONE ONE Stop: 02/18/21 10:53 Last Infusion: 02/18/21 12:01 Dose: 0 mls/hr Documented by: [id number] Admin: 02/18/21 08:37 Dose: 88 mls/hr Documented by: [id number] Parenteral Electrolytes (Normosol-R) 1,000 mls @ 999 mls/hr IV .Q1H1M ONE Stop: 02/18/21 11:09 Last Infusion: 02/18/21 13:36 Dose: 0 mls/hr Documented by: [id number] Infusion: 02/18/21 11:20 Dose: 0 mls/hr Documented by: [id number] Admin: 02/18/21 10:30 Dose: 999 mls/hr Documented by: [id number] Prothrombin Complex Concent ( (Human) 2,000 units/ Syringe) 80 mls @ 10 mls/min IV 1045 B[facility]; Protocol Stop: 02/18/21 14:00 Last Admin: 02/18/21 10:56 Dose: 10 mls/min Documented by: [id number] Parenteral Electrolytes (Normosol-R) 1,000 mls @ 999 mls/hr IV .Q1H1M ONE Stop: 02/18/21 15:30 Last Infusion: 02/18/21 15:10 Dose: 0 mls/hr Documented by: [id number] Admin: 02/18/21 13:40 Dose: 999 mls/hr Documented by: [id number] Potassium Phosphate 15 mmol/ (Sodium Chloride) 255 mls @ 88 mls/hr IV ONE ONE Stop: 02/18/21 17:23 Last Admin: 02/18/21 14:30 Dose: 88 mls/hr Documented by: [id number] Insulin Aspart (Insulin Aspart 100 Units/Ml 3 Ml Pen) 0 units SC ACHS [facility] Stop: 03/19/21 20:59 Last Admin: 02/18/21 11:15 Dose: Not Given Documented by: [id number] Admin: 02/18/21 08:01 Dose: Not Given Documented by: [id number] Cosigned by: [id number] Admin: 02/17/21 21:25 Dose: Not Given Documented by: [id number] Cosigned by: [id number] Ioversol (Optiray 320 125ml) 120 ml IV ONCE ONE Stop: 02/17/21 12:16 Last Admin: 02/17/21 12:16 Dose: 120 ml Documented by: [id number] Levalbuterol HCl (Levalbuterol Hcl 1.25 Mg/3 Ml Neb) 1.25 mg NEB NOW STA Stop: 02/17/21 11:58 Last Admin: 02/17/21 12:25 Dose: 1.25 mg Documented by: [id number] Levalbuterol HCl (Levalbuterol Hcl 1.25 Mg/3 Ml Neb) 1.25 mg NEB NOW STA Stop: 02/17/21 15:23 Last Admin: 02/17/21 15:46 Dose: 1.25 mg Documented by: [id number] Methylprednisolone (Methylprednisolone 125 Mg/2 Ml Vial) 125 mg IV NOW STA Stop: 02/17/21 11:58 Last Admin: 02/17/21 12:41 Dose: 125 mg Documented by: [id number] Metoprolol Tartrate (Metoprolol Tartrate 1 Mg/Ml Vial) 2.5 mg IV NOW STA Stop: 02/18/21 00:06 Last Admin: 02/18/21 00:12 Dose: 2.5 mg Documented by: [id number] Metoprolol Tartrate (Metoprolol Tartrate 1 Mg/Ml Vial) Confirm Administered Dose 5 mg IV .STK-MED ONE Stop: 02/18/21 00:06 Last Admin: 02/18/21 00:17 Dose: Not Given Documented by: [id number] Midazolam HCl (Midazolam Hcl 1 Mg/Ml 2ml Vial) Confirm Administered Dose 2 mg .ROUTE .STK-MED ONE Stop: 02/18/21 15:08 Last Admin: 02/18/21 16:22 Dose: Not Given Documented by: [id number] Miscellaneous (Rapid Sequence Induction Bag) Confirm Administered Dose 1 ea .ROUTE .STK-MED ONE Stop: 02/17/21 11:59 Last Admin: 02/17/21 13:33 Dose: Not Given Documented by: [id number] Miscellaneous Information (Dc All Previously Ordered Diabetes Meds) 1 ea N/A ONE ONE Stop: 02/17/21 20:43 Last Admin: 02/17/21 21:37 Dose: 1 ea Documented by: [id number] Miscellaneous Information (Dc All Anticoagulants ) 1 ea N/A NOW ONE Stop: 02/18/21 10:12 Last Admin: 02/18/21 11:15 Dose: 1 ea Documented by: [id number] Morphine Sulfate (Morphine Sulfate 2 Mg/Ml Carp) 2 mg IV NOW STA Stop: 02/18/21 08:34 Last Admin: 02/18/21 09:18 Dose: 2 mg Documented by: [id number] Propofol (Propofol Iv Emulsion 10 Mg/Ml 100 Ml Vial) Confirm Administered Dose 1,000 mg IV .STK-MED ONE Stop: 02/18/21 15:34 Last Admin: 02/18/21 16:22 Dose: Not Given Documented by: [id number] Sodium Bicarbonate (Sodium Bicarb 8.4% Inj 50 Meq/50 Ml Syr) 50 meq IV NOW STA Stop: 02/17/21 20:47 Last Admin: 02/17/21 21:00 Dose: 50 meq Documented by: [id number] Sodium Bicarbonate (Sodium Bicarb 8.4% Inj 50 Meq/50 Ml Syr) 50 meq IV ONCE STA Stop: 02/18/21 10:43 Last Admin: 02/18/21 10:57 Dose: 50 meq Documented by: [id number] Imaging Data Attestation: I personally reviewed and interpreted this imaging study as follows: Radiologist's Impression: Chest X-Ray 02/17/21 11:58 SINGLE VIEW CHEST CLINICAL HISTORY: Sepsis. FINDINGS: An AP, portable, upright chest radiograph is compared to study dated 09/13/2019 and correlated with chest CT dated 06/03/2019. The heart is enlarged noting atherosclerotic calcification and uncoiling of the thoracic ureter. The pulmonary vasculature is noncongested. Chronic interstitial thickening is similar to previous. There are scattered calcified granulomas. Scarring/atelectasis is noted at the lung bases. There is no evidence of superimposed airspace consolidation or pleural effusion. No pneumothorax is seen. The skeletal structures are osteopenic. The bony thorax is grossly intact. Advanced degenerative change is seen in the shoulders. Surgical anchors are noted in the left humeral head. Spondylotic change is noted throughout the imaged spine. IMPRESSION: Cardiomegaly with no acute cardiopulmonary abnormality. ACT 112: Negative or not required by law. Electronically signed by: Leroy Wasserman M.D. 02/17/2021 1:16 PM Chest CTA 02/17/21 12:05 CT ANGIOGRAM OF THE CHEST CLINICAL HISTORY: PE COMPARISON STUDY: June 03, 2019 TECHNIQUE: Following the IV administration of 112 mL of Optiray, CT angiogram of the thorax was performed from the thoracic inlet to the lung bases utilizing the pulmonary embolus protocol. Images are reviewed in the axial, sagittal, and coronal planes. IV contrast was administered without complication. MIP imaging was performed. A dose lowering technique was utilized adhering to the principles of ALARA. CT DOSE: 2610.65 mGy.cm FINDINGS: Adequate opacification within main pulmonary artery is seen. Evaluation of peripheral branches is slightly limited due to respiratory motion artifact. Main pulmonary artery is dilated measuring 3.0 cm in diameter. No right heart strain is seen. No pathologically enlarged axillary mediastinal or hilar lymph nodes were visualized. Thoracic aorta is tortuous, normal in caliber with scattered calcifications of its wall. Visualized portion of thyroid gland shows no evidence of focal lesions. Proximal aspect of esophagus is patulous, slightly dilated with air-fluid level. There is moderate fat-containing hiatal hernia is seen. Tracheobronchial tree is patent. No large infiltrates or consolidative lesions are seen. Patchy areas of peripheral septal thickening, traction bronchiectasis is again seen however evaluation is limited due to motion artifact. No definite honeycombing is demonstrated. Possible mild groundglass attenuation is seen within areas of fibrotic changes. Few calcifications are seen within peripheral aspect of the right lower lobe, stable since prior. Limited evaluation of upper abdominal viscera shows no evidence of focal lesions. Evaluation is limited due to mild motion and beam hardening artifact. Osseous structures: Multilevel degenerative changes of the spine. IMPRESSION: 1. No definite central pulmonary embolus is seen however evaluation of peripheral branches is limited due to motion artifact. 2. Mild dilatation of the main pulmonary artery could be seen in pulmonary hypertension. No right heart strain demonstrated. 3. No large infiltrates or consolidative lesions are seen however there is redemonstration of mild fibrotic changes at peripheral aspect of bilateral lungs which is not significantly changed since prior. Limited evaluation due to motion artifact. 4. Hiatal hernia. Patulous dilated proximal esophagus with air-fluid level. Please correlate above-mentioned findings with prior history of esophageal abnormalities. ACT 112: Negative or not required by law. The above report was generated using voice recognition software. It may contain grammatical, syntax or spelling errors. Electronically signed by: Bernie Parker DO 02/17/2021 12:45 PM Abdomen/Pelvis CT 02/17/21 12:[address] WITH IV CONTRAST CT DOSE: HISTORY: Hypotensive. Generalized abdominal pain. TECHNIQUE: Multiaxial CT images of the abdomen and pelvis were performed following the use of intravenous contrast. A dose lowering technique was utilized adhering to the principles of ALARA. COMPARISON STUDY: Abdomen and pelvis CT 09/13/2019. MRCP 09/14/2019. FINDINGS: Please refer to the same day chest CTA for further evaluation of the lung bases. No pneumoperitoneum. No pneumatosis. No suspicious lytic or blastic osseous lesions. Small fat-containing left inguinal hernia. Stable calcifications within the central liver. No hepatic or splenic masses. The gallbladder, pancreas, and adrenal glands are unremarkable. Moderate to severe bilateral cortical renal thinning. A few scattered bilateral renal hypodense lesions. Dominant hypodense lesion within the upper pole the right kidney measures 1.9 cm. This does not clearly represent a simple cyst and could represent a hyperdense cyst or renal mass. No retroperitoneal lymphadenopathy. The main portal vein is patent. Moderate calcified plaque within the aorta and iliac arteries is again noted. There are multiple brachytherapy seeds seen at the prostate gland. No pelvic lymphadenopathy identified. The bladder is decompressed and therefore not well evaluated. No ureteral stones. No hydronephrosis. There are few punctate bilateral renal calculi. Colonic diverticulosis. No evidence for acute diverticulitis. No bowel wall thickening or obstruction. Normal appendix. Stable mild superior endplate deformity at L2. IMPRESSION: 1. No bowel wall thickening or obstruction. 2. Bilateral nephrolithiasis. No hydronephrosis. 3. A 1.8 cm hypodense lesion within the right kidney. This does not clearly represent a simple cyst. This could represent a hyperdense cyst or possibly a renal mass. Dedicated follow-up nonemergent renal ultrasound is recommended for further evaluation. 4. Additional findings as described above. ACT 112: Negative or not required by law. Electronically signed by: Óscar Justice M.D. 02/17/2021 12:42 PM Discharge Plan Visit Data Chief Complaint: Respiratory Distress Stated Complaint: RESP. DISTRESS ED Provider: Larry Haynes Discharge Problem: Sepsis, Chronic obstructive pulmonary disease, Acute respiratory failure with hypoxia, KAYKAY (acute kidney injury) Patient Disposition: Admitted As Inpatient Discharge Instructions Interventions: ED Discharge Assessment Last Done: 02/17/21 15:15 Discharge Problem: Sepsis Qualifiers: Sepsis type: sepsis due to unspecified organism Sepsis acute organ dysfunction status: unspecified Qualified Code(s): A41.9 - Sepsis, unspecified organism Chronic obstructive pulmonary disease Qualifiers: COPD type: unspecified COPD Qualified Code(s): J44.9 - Chronic obstructive pulmonary disease, unspecified
--- NOTE | 2021-02-18 18:28 | XRay Report ---
KUB CLINICAL HISTORY: Enteric tube placement. FINDINGS: 2 AP, portable, supine abdominal radiographs are correlated with abdominal CT dated . An enteric tube has been placed. The tip projects below the diaphragm over the mid to distal stoma ch. There is no evidence of bowel obstruction or intraperitoneal free air. No abnormal abdominal calc ifications are identified. The skeletal structures are osteopenic. There is advanced lumbosacral spon dylosis. IMPRESSION: An enteric tube has been placed as above. Electronically signed by: Leroy Wasserman M.D. 02/18/2021 6:26 PM
[2021-02-18 18:31] LABS: Hematocrit (blood only) 20.8 % (42-52); Hemoglobin 7.1 g/dL (14.0-18.0); Mean Corpuscular Hemoglobin 34.3 pg (25-34); Mean Corpuscular Hgb Conc 34.1 g/dL (32-36); Mean Corpuscular Volume 100.5 fL (80-100); Mean Platelet Volume 9.9 fL (7.4-10.4); Nucleated RBC # (auto) 0.06 K/uL (0-0); Nucleated RBC % (auto) 0.2 %; Platelet Count 209 K/uL (130-400); RDW Coefficient of Variation 15.6 % (11.5-14.5); RDW Standard Deviation 56.5 fL (36.4-46.3); Red Blood Count 2.07 M/uL (4.7-6.1); White Blood Count 30.04 K/uL (4.8-10.8)
[2021-02-18 18:40] LABS: BUN Creatinine Ratio 35.4 (10-20); Calcium 7.1 mg/dl (8.5-10.1); Creatinine Clr Calc Pharmacy 62.9 ml/min; Est GFR (African American) 58.7 ml/min; Est GFR (Non-African American) 50.6 ml/min; Potassium 3.8 mmol/L (3.5-5.1)
[2021-02-18 18:42] LABS: Phosphorus 2.6 mg/dl (2.5-4.9)
[2021-02-19] MEDS: METOPROLOL TARTRATE 1 MG/ML VIAL IV SCH ×5 (00:09→23:45)
[2021-02-19] MEDS: INSULIN ASPART 100 UNITS/ML 3 ML PEN SC SCH ×6 (00:10→20:18)
[2021-02-19 00:14] LABS: Hematocrit (blood only) 19.1 % (42-52); Hemoglobin 6.4 g/dL (14.0-18.0)
[2021-02-19] MEDS ORDERED: SODIUM CHLORIDE 0.9% 250 ML IV PRN (00:14)
[2021-02-19] MEDS: propofoL 1,000 MG/100 ML VIAL IV SCH ×7 (02:49→20:10)
[2021-02-19] MEDS: metroNIDAZOLE 500 MG/100 ML BAG IV SCH (03:08)
[2021-02-19] MEDS: PANTOprazole 40 MG in DEXTROSE 5% 100 ML IV SCH ×4 (04:43→21:10)
[2021-02-19] MEDS: AMPICILLIN 2,000 MG in SODIUM CHLOR 0.9% AD-VAN 100 ML IV SCH ×5 (05:29→23:44)
[2021-02-19] MEDS: methylPREDNISolone 40 MG in SYRINGE 0 ML IV SCH (05:30)
[2021-02-19 05:58] LABS: iSTAT Allen Test Pass; iSTAT Art Bld Gas pCO2 Correct 46 mmHg (35-46); iSTAT Art Bld Gas pH Corrected 7.313 (7.35-7.45); iSTAT Arterial Blood Gas HCO3 24 meg/L (19-24); iSTAT Arterial Blood Gas pCO2 46 mmHg (35-46); iSTAT Arterial Blood Gas pH 7.31 (7.35-7.45); iSTAT Arterial Blood Gas pO2 < 32 mmHg (80-95); iSTAT Arterial Blood Gas pO2 C 17; iSTAT Carbon Dioxide 25 mmol/L (24-31); iSTAT FiO2 30 %; iSTAT Hematocrit 21 % (42-52); iSTAT Hemoglobin 7.1 g/dl (14.0-18.0); iSTAT Potassium 3.9 mmol/L (3.3-5.0); iSTAT Site L Radial; iSTAT Sodium 144 mmol/L (135-144)
[2021-02-19 05:58] LABS: iSTAT Allen Test Pass; iSTAT Art Bld Gas pCO2 Correct 52 mmHg (35-46); iSTAT Art Bld Gas pH Corrected 7.255 (7.35-7.45); iSTAT Arterial Blood Gas HCO3 23 meg/L (19-24); iSTAT Arterial Blood Gas pCO2 52 mmHg (35-46); iSTAT Arterial Blood Gas pH 7.26 (7.35-7.45); iSTAT Arterial Blood Gas pO2 < 32 mmHg (80-95); iSTAT Arterial Blood Gas pO2 C 23; iSTAT Carbon Dioxide 25 mmol/L (24-31); iSTAT FiO2 30 %; iSTAT Hematocrit 26 % (42-52); iSTAT Hemoglobin 8.8 g/dl (14.0-18.0); iSTAT Potassium 3.9 mmol/L (3.3-5.0); iSTAT Site R Radial; iSTAT Sodium 148 mmol/L (135-144)
[2021-02-19 05:58] LABS: iSTAT Arterial Blood Gas HCO3 22 meg/L (19-24); iSTAT Arterial Blood Gas pCO2 34 mmHg (35-46); iSTAT Arterial Blood Gas pH 7.42 (7.35-7.45); iSTAT Arterial Blood Gas pO2 82 mmHg (80-95); iSTAT Carbon Dioxide 23 mmol/L (24-31); iSTAT FiO2 30 %; iSTAT Site L Brachial
--- NOTE | 2021-02-19 06:04 | Electrocardiogram Report ---
Test Reason : Blood Pressure : / mmHG Vent. Rate : 114 BPM Atrial Rate : 114 BPM P-R Int : 222 ms QRS Dur : 088 ms QT Int : 324 ms P-R-T Axes : 016 104 069 degrees QTc Int : 447 ms Sinus tachycardia with 1st degree A-V block Rightward axis Low voltage QRS Nonspecific ST abnormality Abnormal ECG When compared with ECG of 17-FEB-2021 11:39, ID interval has increased Questionable change in QRS axis T wave amplitude has decreased in Inferior leads Nonspecific T wave abnormality now evident in Lateral leads Confirmed by Ky Woodall ([id number]) on 02/19/2021 6:04:07 AM Referred By: REFERRED SELF Confirmed By:Ky Woodall
[2021-02-19 06:15] LABS: Hematocrit (blood only) 26.6 % (42-52); Hemoglobin 8.8 g/dL (14.0-18.0); Mean Corpuscular Hemoglobin 33.2 pg (25-34); Mean Corpuscular Hgb Conc 33.1 g/dL (32-36); Mean Corpuscular Volume 100.4 fL (80-100); Mean Platelet Volume 10.3 fL (7.4-10.4); Nucleated RBC # (auto) 0.17 K/uL (0-0); Nucleated RBC % (auto) 0.7 %; Platelet Count 147 K/uL (130-400); RDW Coefficient of Variation 16.5 % (11.5-14.5); RDW Standard Deviation 58.5 fL (36.4-46.3); Red Blood Count 2.65 M/uL (4.7-6.1); White Blood Count 26.16 K/uL (4.8-10.8)
[2021-02-19 06:25] LABS: INR 1.3 (0.9-1.1); Partial Thromboplastin Ratio 0.8; Partial Thromboplastin Time 21.7 Seconds (21.0-31.0); Prothrombin Time 13.3 Seconds (9.0-12.0)
[2021-02-19 06:53] LABS: Basophilic Stippling Occasional; Basophils # (auto) 0.01 K/uL (0-0.2); Immature Granulocytes # (auto) 0.35 K/uL (0.00-0.02); Immature Granulocytes % (auto) 1.3 %; Lymphocytes # (auto) 0.76 K/uL (1.2-3.4); Lymphocytes % (auto) 2.9 %; Monocytes # (auto) 1.18 K/uL (0.11-0.59); Monocytes % (auto) 4.5 %; Neutrophils # (auto) 23.86 K/uL (1.4-6.5); Neutrophils % (auto) 91.3 %; Toxic Vacuolation Occasional
--- NOTE | 2021-02-19 07:01 | XRay Report ---
XR chest 1V portable HISTORY: 75 years-old Male Resp failure acute respiratory failure COMPARISON: Chest radiograph 02/18/2021 TECHNIQUE: Portable AP view of the chest FINDINGS: Endotracheal tube overlies the midline, 5.0 cm superior to the daxa. Cardiomegaly. Interstitial coa rsening redemonstrated. There is no pneumothorax, large pleural effusion or overt pulmonary edema. Mi ld left greater than right bibasilar opacities redemonstrated. Degenerative changes of the shoulders and spine. IMPRESSION: 1. Endotracheal tube terminates 5.0 cm superior to the daxa. 2. Cardiomegaly. 3. Persistent left greater than right mild bibasilar opacities. ACT 112: Negative or not required by law. The above report was generated using voice recognition software. It may contain grammatical, syntax o r spelling errors. Electronically signed by: Addy Larose M.D. 02/19/2021 7:00 AM
[2021-02-19 07:05] LABS: BUN Creatinine Ratio 32.5 (10-20); Creatinine Clr Calc Pharmacy 71.1 ml/min; Est GFR (African American) 66.3 ml/min; Est GFR (Non-African American) 57.2 ml/min; Phosphorus 2.5 mg/dl (2.5-4.9)
[2021-02-19] MEDS: fentaNYL DRIP 1,250 MCG/250 ML BAG IV SCH ×2 (07:52→13:34)
[2021-02-19] MEDS: SODIUM CHLOR 0.45% + 20MEQ KCL 20 MEQ/1,000 ML BAG IV SCH (07:53)
[2021-02-19] MEDS: D5W AND 1/2NSS 1,000 ML IV SCH (08:01)
[2021-02-19 09:01] LABS: Magnesium 2.1 mg/dl (1.8-2.4); Potassium 4.1 mmol/L (3.5-5.1)
[2021-02-19] MEDS: FOLIC ACID 1 MG in SYRINGE 9.8 ML IV SCH (09:55)
[2021-02-19] MEDS: PROPOFOL BOLUS FROM BAG IV PRN (10:00)
--- NOTE | 2021-02-19 10:10 | Gastroenterology Progress Note ---
Date of Service February 19, 2021 Assessment & Plan (1) Acute metabolic encephalopathy: (2) Acute respiratory failure with hypoxia: (3) Heme positive stool: Patient is a 75 y.o. male admitted with acute mental status changes, suspected sepsis and hypoxia with acute blood loss anemia and heme positive stool. CT imaging suggestive of a 3.1 x 1.3 cm collection anterior to the iliopsoas muscle. 1. Suspect drop in H&H more likely related to hemorrhage seen on CT rather than GI blood loss. 2. Agree with holding Eliquis at this time. 3. Continue PPI ggt at 8 mg/hr. 4. Rest per primary team. 5. Will sign off at this time. Feel free to contact us with any questions or concerns. Admission and Anticipated Discharge Date Admission Date: February 17, 2021 Subjective Patient on mechanical ventilator for respiratory support. Per nursing, one dark appearing stool last night but no gross bleeding. He did receive 2 units PRBCs due to H&H drop to 6.4 last evening. Hemoglobin 8.8 this morning. EGD yesterday negative for GIB. Patient for LP today. Review of Systems Review of Systems: Unobtainable due to endotracheal tube Physical Exam Constitutional: no acute distress Respiratory: normal respiratory effort Auscultation: lungs clear to auscultation bilaterally Cardiovascular: Rate/Rhythm: regular rate and regular rhythm Gastrointestinal (Abdomen): Inspection/Auscultation: normal bowel sounds Percussion/Palpation: abdomen soft Results & Data Results & Data ([facility]) Vital Signs (Past 12 Hours) Vital Signs Temp Pulse Resp BP Pulse Ox 02/19/21 08:08 86 110/57 L 98 02/19/21 08:00 37 C 91 H 02/19/21 07:38 86 107/64 98 02/19/21 07:08 87 93/46 L 97 02/19/21 07:00 88 18 97 02/19/21 06:39 90 92/41 L 98 02/19/21 06:18 98 H 129/57 L 97 02/19/21 06:00 92 H 18 129/57 L 98 02/19/21 05:49 94 H 120/59 L 02/19/21 05:33 95 H 20 97 02/19/21 05:27 37 C 97 H 18 113/59 L 96 02/19/21 05:06 97 H 19 107/60 96 02/19/21 04:06 91 H 19 95/58 L 98 02/19/21 03:36 94 H 20 95/58 L 99 02/19/21 03:21 37 C 93 H 18 98/51 L 99 02/19/21 03:03 37 C 94 H 18 98/56 L 99 02/19/21 03:01 37 C 94 H 18 98/56 L 99 02/19/21 02:57 18 02/19/21 02:01 97 H 18 101/47 L 99 02/19/21 01:31 37.1 C 87 18 102/43 L 99 02/19/21 01:16 97 H 18 93/49 L 98 02/19/21 01:14 37 C 99 H 18 103/61 98 02/19/21 00:57 36.7 C 100 H 18 99/47 L 98 02/19/21 00:09 100 H 02/19/21 00:00 37.3 C 102 H 18 122/49 L 98 02/18/21 23:30 100 H 18 98 02/18/21 23:00 102 H 18 90/46 L 99 02/18/21 22:30 104 H 18 93/56 L 98 02/18/21 22:15 22 Laboratory Results Abnormal lab results 02/18/21 02/18/21 02/18/21 Range/Units 10:17 10:55 10:55 WBC (4.8-10.8) K/uL RBC (4.7-6.1) M/uL Hgb 8.3 L (14.0-18.0) g/dL POC Hgb (14.0-18.0) g/dl Hct 24.3 L (42-52) % POC Hct (42-52) % MCV (80-100) fL MCH (25-34) pg RDW Std Deviation (36.4-46.3) fL RDW Coeff of Melba (11.5-14.5) % Neut # (Auto) (1.4-6.5) K/uL Lymph # (Auto) (1.2-3.4) K/uL [place] # (Auto) (0.11-0.59) K/uL Immature Gran # (Auto) (0.00-0.02) K/uL Absolute Nucleated RBC (0-0) K/uL PT (9.0-12.0) Seconds INR (0.9-1.1) POC pH (7.35-7.45) POC pCO2 (35-46) mmHg POC pO2 (80-95) mmHg POC Total CO2 (24-31) mmol/L ABG pH (Temp Correct) (7.35-7.45) ABG pCO2 (Temp Corrct (35-46) mmHg POC ABG O2 Sat (90-95) % VBG pH (7.36-7.41) POC Sodium (135-144) mmol/L Sodium (136-145) mmol/L Chloride (98-107) mmol/L Carbon Dioxide (21-32) mmol/L Anion Gap (3-11) BUN (7-18) mg/dl Creatinine (0.6-1.4) mg/dl BUN/Creatinine Ratio (10-20) Glucose (70-99) mg/dl POC Glucose 160 H (70-99) mg/dl Osmolality (280-300) mOsm/kg Lactate 8.5 H* (0.4-2.0) mmol/L Calcium (8.5-10.1) mg/dl Phosphorus (2.5-4.9) mg/dl Albumin (3.4-5.0) gm/dl Crossmatch 02/18/21 02/18/21 02/18/21 Range/Units 10:55 10:55 11:12 WBC (4.8-10.8) K/uL RBC (4.7-6.1) M/uL Hgb (14.0-18.0) g/dL POC Hgb (14.0-18.0) g/dl Hct (42-52) % POC Hct (42-52) % MCV (80-100) fL MCH (25-34) pg RDW Std Deviation (36.4-46.3) fL RDW Coeff of Melba (11.5-14.5) % Neut # (Auto) (1.4-6.5) K/uL Lymph # (Auto) (1.2-3.4) K/uL [place] # (Auto) (0.11-0.59) K/uL Immature Gran # (Auto) (0.00-0.02) K/uL Absolute Nucleated RBC (0-0) K/uL PT (9.0-12.0) Seconds INR (0.9-1.1) POC pH (7.35-7.45) POC pCO2 (35-46) mmHg POC pO2 (80-95) mmHg POC Total CO2 (24-31) mmol/L ABG pH (Temp Correct) (7.35-7.45) ABG pCO2 (Temp Corrct (35-46) mmHg POC ABG O2 Sat (90-95) % VBG pH (7.36-7.41) POC Sodium (135-144) mmol/L Sodium (136-145) mmol/L Chloride (98-107) mmol/L Carbon Dioxide (21-32) mmol/L Anion Gap (3-11) BUN (7-18) mg/dl Creatinine (0.6-1.4) mg/dl BUN/Creatinine Ratio (10-20) Glucose (70-99) mg/dl POC Glucose 152 H (70-99) mg/dl Osmolality 325 H (280-300) mOsm/kg Lactate (0.4-2.0) mmol/L Calcium (8.5-10.1) mg/dl Phosphorus (2.5-4.9) mg/dl Albumin (3.4-5.0) gm/dl Crossmatch See Detail 02/18/21 02/18/21 02/18/21 Range/Units 12:16 12:46 12:46 WBC (4.8-10.8) K/uL RBC (4.7-6.1) M/uL Hgb (14.0-18.0) g/dL POC Hgb (14.0-18.0) g/dl Hct (42-52) % POC Hct (42-52) % MCV (80-100) fL MCH (25-34) pg RDW Std Deviation (36.4-46.3) fL RDW Coeff of Melba (11.5-14.5) % Neut # (Auto) (1.4-6.5) K/uL Lymph # (Auto) (1.2-3.4) K/uL [place] # (Auto) (0.11-0.59) K/uL Immature Gran # (Auto) (0.00-0.02) K/uL Absolute Nucleated RBC (0-0) K/uL PT (9.0-12.0) Seconds INR (0.9-1.1) POC pH (7.35-7.45) POC pCO2 (35-46) mmHg POC pO2 (80-95) mmHg POC Total CO2 (24-31) mmol/L ABG pH (Temp Correct) (7.35-7.45) ABG pCO2 (Temp Corrct (35-46) mmHg POC ABG O2 Sat (90-95) % VBG pH (7.36-7.41) POC Sodium (135-144) mmol/L Sodium 148 H (136-145) mmol/L Chloride 114 H (98-107) mmol/L Carbon Dioxide 20 L (21-32) mmol/L Anion Gap 14.0 H (3-11) BUN 56 H (7-18) mg/dl Creatinine 1.68 H (0.6-1.4) mg/dl BUN/Creatinine Ratio 33.3 H (10-20) Glucose 135 H (70-99) mg/dl POC Glucose 129 H (70-99) mg/dl Osmolality (280-300) mOsm/kg Lactate (0.4-2.0) mmol/L Calcium 7.6 L (8.5-10.1) mg/dl Phosphorus 1.7 L (2.5-4.9) mg/dl Albumin 2.5 L (3.4-5.0) gm/dl Crossmatch 02/18/21 02/18/21 02/18/21 Range/Units 13:27 13:57 16:36 WBC (4.8-10.8) K/uL RBC (4.7-6.1) M/uL Hgb (14.0-18.0) g/dL POC Hgb 6.1 L* (14.0-18.0) g/dl Hct (42-52) % POC Hct 18 L* (42-52) % MCV (80-100) fL MCH (25-34) pg RDW Std Deviation (36.4-46.3) fL RDW Coeff of Melba (11.5-14.5) % Neut # (Auto) (1.4-6.5) K/uL Lymph # (Auto) (1.2-3.4) K/uL [place] # (Auto) (0.11-0.59) K/uL Immature Gran # (Auto) (0.00-0.02) K/uL Absolute Nucleated RBC (0-0) K/uL PT (9.0-12.0) Seconds INR (0.9-1.1) POC pH (7.35-7.45) POC pCO2 (35-46) mmHg POC pO2 411 H (80-95) mmHg POC Total CO2 (24-31) mmol/L ABG pH (Temp Correct) 7.456 H (7.35-7.45) ABG pCO2 (Temp Corrct (35-46) mmHg POC ABG O2 Sat 100.0 H (90-95) % VBG pH (7.36-7.41) POC Sodium 147 H (135-144) mmol/L Sodium (136-145) mmol/L Chloride (98-107) mmol/L Carbon Dioxide (21-32) mmol/L Anion Gap (3-11) BUN (7-18) mg/dl Creatinine (0.6-1.4) mg/dl BUN/Creatinine Ratio (10-20) Glucose (70-99) mg/dl POC Glucose 124 H 128 H (70-99) mg/dl Osmolality (280-300) mOsm/kg Lactate (0.4-2.0) mmol/L Calcium (8.5-10.1) mg/dl Phosphorus (2.5-4.9) mg/dl Albumin (3.4-5.0) gm/dl Crossmatch 02/18/21 02/18/21 02/18/21 Range/Units 16:49 18:15 18:15 WBC (4.8-10.8) K/uL RBC (4.7-6.1) M/uL Hgb (14.0-18.0) g/dL POC Hgb (14.0-18.0) g/dl Hct (42-52) % POC Hct (42-52) % MCV (80-100) fL MCH (25-34) pg RDW Std Deviation (36.4-46.3) fL RDW Coeff of Melba (11.5-14.5) % Neut # (Auto) (1.4-6.5) K/uL Lymph # (Auto) (1.2-3.4) K/uL [place] # (Auto) (0.11-0.59) K/uL Immature Gran # (Auto) (0.00-0.02) K/uL Absolute Nucleated RBC (0-0) K/uL PT (9.0-12.0) Seconds INR (0.9-1.1) POC pH (7.35-7.45) POC pCO2 (35-46) mmHg POC pO2 (80-95) mmHg POC Total CO2 (24-31) mmol/L ABG pH (Temp Correct) (7.35-7.45) ABG pCO2 (Temp Corrct (35-46) mmHg POC ABG O2 Sat (90-95) % VBG pH 7.34 L (7.36-7.41) POC Sodium (135-144) mmol/L Sodium 149 H (136-145) mmol/L Chloride 117 H (98-107) mmol/L Carbon Dioxide (21-32) mmol/L Anion Gap (3-11) BUN 48 H (7-18) mg/dl Creatinine (0.6-1.4) mg/dl BUN/Creatinine Ratio 35.4 H (10-20) Glucose 118 H (70-99) mg/dl POC Glucose 134 H (70-99) mg/dl Osmolality (280-300) mOsm/kg Lactate (0.4-2.0) mmol/L Calcium 7.1 L (8.5-10.1) mg/dl Phosphorus (2.5-4.9) mg/dl Albumin (3.4-5.0) gm/dl Crossmatch 02/18/21 02/18/21 02/18/21 Range/Units 18:15 18:15 20:27 WBC 30.04 H* (4.8-10.8) K/uL RBC 2.07 L (4.7-6.1) M/uL Hgb 7.1 L (14.0-18.0) g/dL POC Hgb (14.0-18.0) g/dl Hct 20.8 L* (42-52) % POC Hct (42-52) % MCV 100.5 H (80-100) fL MCH 34.3 H (25-34) pg RDW Std Deviation 56.5 H (36.4-46.3) fL RDW Coeff of Melba 15.6 H (11.5-14.5) % Neut # (Auto) (1.4-6.5) K/uL Lymph # (Auto) (1.2-3.4) K/uL [place] # (Auto) (0.11-0.59) K/uL Immature Gran # (Auto) (0.00-0.02) K/uL Absolute Nucleated RBC 0.06 H (0-0) K/uL PT (9.0-12.0) Seconds INR (0.9-1.1) POC pH (7.35-7.45) POC pCO2 (35-46) mmHg POC pO2 (80-95) mmHg POC Total CO2 (24-31) mmol/L ABG pH (Temp Correct) (7.35-7.45) ABG pCO2 (Temp Corrct (35-46) mmHg POC ABG O2 Sat (90-95) % VBG pH (7.36-7.41) POC Sodium (135-144) mmol/L Sodium (136-145) mmol/L Chloride (98-107) mmol/L Carbon Dioxide (21-32) mmol/L Anion Gap (3-11) BUN (7-18) mg/dl Creatinine (0.6-1.4) mg/dl BUN/Creatinine Ratio (10-20) Glucose (70-99) mg/dl POC Glucose 123 H (70-99) mg/dl Osmolality (280-300) mOsm/kg Lactate 5.4 H* (0.4-2.0) mmol/L Calcium (8.5-10.1) mg/dl Phosphorus (2.5-4.9) mg/dl Albumin (3.4-5.0) gm/dl Crossmatch 02/18/21 02/18/21 02/19/21 Range/Units 23:38 23:48 04:05 WBC (4.8-10.8) K/uL RBC (4.7-6.1) M/uL Hgb 6.4 L* (14.0-18.0) g/dL POC Hgb (14.0-18.0) g/dl Hct 19.1 L* (42-52) % POC Hct (42-52) % MCV (80-100) fL MCH (25-34) pg RDW Std Deviation (36.4-46.3) fL RDW Coeff of Melba (11.5-14.5) % Neut # (Auto) (1.4-6.5) K/uL Lymph # (Auto) (1.2-3.4) K/uL [place] # (Auto) (0.11-0.59) K/uL Immature Gran # (Auto) (0.00-0.02) K/uL Absolute Nucleated RBC (0-0) K/uL PT (9.0-12.0) Seconds INR (0.9-1.1) POC pH (7.35-7.45) POC pCO2 (35-46) mmHg POC pO2 (80-95) mmHg POC Total CO2 (24-31) mmol/L ABG pH (Temp Correct) (7.35-7.45) ABG pCO2 (Temp Corrct (35-46) mmHg POC ABG O2 Sat (90-95) % VBG pH (7.36-7.41) POC Sodium (135-144) mmol/L Sodium (136-145) mmol/L Chloride (98-107) mmol/L Carbon Dioxide (21-32) mmol/L Anion Gap (3-11) BUN (7-18) mg/dl Creatinine (0.6-1.4) mg/dl BUN/Creatinine Ratio (10-20) Glucose (70-99) mg/dl POC Glucose 151 H 133 H (70-99) mg/dl Osmolality (280-300) mOsm/kg Lactate (0.4-2.0) mmol/L Calcium (8.5-10.1) mg/dl Phosphorus (2.5-4.9) mg/dl Albumin (3.4-5.0) gm/dl Crossmatch 02/19/21 02/19/21 02/19/21 Range/Units 05:20 05:32 05:44 WBC (4.8-10.8) K/uL RBC (4.7-6.1) M/uL Hgb (14.0-18.0) g/dL POC Hgb 7.1 L 8.8 L (14.0-18.0) g/dl Hct (42-52) % POC Hct 21 L 26 L (42-52) % MCV (80-100) fL MCH (25-34) pg RDW Std Deviation (36.4-46.3) fL RDW Coeff of Melba (11.5-14.5) % Neut # (Auto) (1.4-6.5) K/uL Lymph # (Auto) (1.2-3.4) K/uL [place] # (Auto) (0.11-0.59) K/uL Immature Gran # (Auto) (0.00-0.02) K/uL Absolute Nucleated RBC (0-0) K/uL PT (9.0-12.0) Seconds INR (0.9-1.1) POC pH 7.31 L 7.26 L (7.35-7.45) POC pCO2 52 H 34 L (35-46) mmHg POC pO2 < 32 L < 32 L (80-95) mmHg POC Total CO2 23 L (24-31) mmol/L ABG pH (Temp Correct) 7.313 L 7.255 L (7.35-7.45) ABG pCO2 (Temp Corrct 52 H (35-46) mmHg POC ABG O2 Sat 21.0 L 31.0 L 96.0 H (90-95) % VBG pH (7.36-7.41) POC Sodium 148 H (135-144) mmol/L Sodium (136-145) mmol/L Chloride (98-107) mmol/L Carbon Dioxide (21-32) mmol/L Anion Gap (3-11) BUN (7-18) mg/dl Creatinine (0.6-1.4) mg/dl BUN/Creatinine Ratio (10-20) Glucose (70-99) mg/dl POC Glucose (70-99) mg/dl Osmolality (280-300) mOsm/kg Lactate (0.4-2.0) mmol/L Calcium (8.5-10.1) mg/dl Phosphorus (2.5-4.9) mg/dl Albumin (3.4-5.0) gm/dl Crossmatch 02/19/21 02/19/21 02/19/21 Range/Units 05:54 06:07 06:07 WBC 26.16 H (4.8-10.8) K/uL RBC 2.65 L (4.7-6.1) M/uL Hgb 8.8 L (14.0-18.0) g/dL POC Hgb (14.0-18.0) g/dl Hct 26.6 L (42-52) % POC Hct (42-52) % MCV 100.4 H (80-100) fL MCH (25-34) pg RDW Std Deviation 58.5 H (36.4-46.3) fL RDW Coeff of Melba 16.5 H (11.5-14.5) % Neut # (Auto) 23.86 H (1.4-6.5) K/uL Lymph # (Auto) 0.76 L (1.2-3.4) K/uL [place] # (Auto) 1.18 H (0.11-0.59) K/uL Immature Gran # (Auto) 0.35 H (0.00-0.02) K/uL Absolute Nucleated RBC 0.17 H (0-0) K/uL PT 13.3 H (9.0-12.0) Seconds INR 1.3 H (0.9-1.1) POC pH (7.35-7.45) POC pCO2 (35-46) mmHg POC pO2 (80-95) mmHg POC Total CO2 (24-31) mmol/L ABG pH (Temp Correct) (7.35-7.45) ABG pCO2 (Temp Corrct (35-46) mmHg POC ABG O2 Sat (90-95) % VBG pH (7.36-7.41) POC Sodium (135-144) mmol/L Sodium (136-145) mmol/L Chloride (98-107) mmol/L Carbon Dioxide (21-32) mmol/L Anion Gap (3-11) BUN (7-18) mg/dl Creatinine (0.6-1.4) mg/dl BUN/Creatinine Ratio (10-20) Glucose (70-99) mg/dl POC Glucose (70-99) mg/dl Osmolality (280-300) mOsm/kg Lactate 4.2 H* (0.4-2.0) mmol/L Calcium (8.5-10.1) mg/dl Phosphorus (2.5-4.9) mg/dl Albumin (3.4-5.0) gm/dl Crossmatch 02/19/21 02/19/21 Range/Units 06:07 07:34 WBC (4.8-10.8) K/uL RBC (4.7-6.1) M/uL Hgb (14.0-18.0) g/dL POC Hgb (14.0-18.0) g/dl Hct (42-52) % POC Hct (42-52) % MCV (80-100) fL MCH (25-34) pg RDW Std Deviation (36.4-46.3) fL RDW Coeff of Melba (11.5-14.5) % Neut # (Auto) (1.4-6.5) K/uL Lymph # (Auto) (1.2-3.4) K/uL [place] # (Auto) (0.11-0.59) K/uL Immature Gran # (Auto) (0.00-0.02) K/uL Absolute Nucleated RBC (0-0) K/uL PT (9.0-12.0) Seconds INR (0.9-1.1) POC pH (7.35-7.45) POC pCO2 (35-46) mmHg POC pO2 (80-95) mmHg POC Total CO2 (24-31) mmol/L ABG pH (Temp Correct) (7.35-7.45) ABG pCO2 (Temp Corrct (35-46) mmHg POC ABG O2 Sat (90-95) % VBG pH (7.36-7.41) POC Sodium (135-144) mmol/L Sodium 146 H (136-145) mmol/L Chloride 116 H (98-107) mmol/L Carbon Dioxide (21-32) mmol/L Anion Gap (3-11) BUN 40 H (7-18) mg/dl Creatinine (0.6-1.4) mg/dl BUN/Creatinine Ratio 32.5 H (10-20) Glucose 128 H (70-99) mg/dl POC Glucose 121 H (70-99) mg/dl Osmolality (280-300) mOsm/kg Lactate (0.4-2.0) mmol/L Calcium 7.0 L (8.5-10.1) mg/dl Phosphorus (2.5-4.9) mg/dl Albumin (3.4-5.0) gm/dl Crossmatch PG Care Time/CCT Total # of Minutes Spent Total Time Spent with Patient: Total time spent is greater than 50% in coordination of care (as documented) at patient's floor/unit and/or counseling patient: Coding Level of Care Code 90012 Subseq Hosp Care Lvl 3 Diagnoses Acute metabolic encephalopathy G93.41 Acute respiratory failure with hypoxia J96.01 Heme positive stool R19.5
--- NOTE | 2021-02-19 10:24 | Critical Care Progress Note ---
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 Wednesday and prednisone on a daily basis, hypertension, depression, Paroxysmal A. fib on apixaban, COPD on 3 L nasal cannula was admitted to the hospital as he was found to be on his lawn. initial blood pressure was 80/60 w ith a pulse of 150 Initial lactate was 14. Patient was given 2.5 lactate went down to 4.8. CT chest 02/17/2021 personally reviewed: Increased interstitial thickening appreciated bilaterally more in the apical lobe peripherally. No clear infiltrate identified Old granulomatous No mediastinal adenopathy EKG 02/17/2021: No acute events undefined, right axis deviation, QTC 463 Patient has seen the patient in the ED 1 which is chronic and was also appreciated in August ABG 02/17/2021: 7.32/33/160 on 50% -- VDRF As a measure for airway protection secondary for altered mental status Continue with ventilatory support Keep RASS -1 Daily sedation holidays and SBT's Chlorhexidine mouthwash --Metabolic encephalopathy Etiology is unclear right now CT head 02/17/2021 negative, patient moving all extremities on command TSH within normal limit, calcium within normal limit UDS positive for opiates, ecstasy(likely from venlafaxine) as well as ma rijuana(patient smokes marijuana) Continue with empiric antibiotics Follow-up septic work-up ESR less than 1, CRP 1.26 ? seziure with a blank stare. Got one dose of Keppra 02/17/2021. EEG negative for seizures --Acute blood loss anemia Patient is on apixaban at home, s/p Kcentra 02/18/2021 Last dose was 02/17/21 S/p 2 units PRBC 02/19/2021 S/p EGD 02/18/2021 but did not show any active bleed Patient also has small retroperitoneal bleed on the left side Continue with Protonix drip Random cortisol 66.5 COVID-19 PCR negative Procalcitonin negative --S/p HAGMA Metabolic acidosis likely from lactic acidosis Patient having melanotic stool could be the reason for alkalosis Positive urinary gap Monitor Serum osmolality 338, calculated osmolality 324, osmolar gap 14 which is very mi nimally elevated. Salicylate and acetaminophen level negative Patient also had elevated beta hydroxybutyrate which could be from starvation Patient got 2 Amps bicarb so far. Repeat CT abdomen pelvis 02/18/2021 did not show any signs of bowel ischemia, there was small retroperitoneal bleed/edema left lower quadrant. Not significant enough to give the lactic acidosis -- KAYKAY Likely secondary to dehydration, prerenal component Improving Fe Na: 0.94%, prerenal Monitor BUN/creatinine Avoid nephrotoxic medications Strict ins and outs --COPD Not in exacerbation We will continue with steroids for the time being and gradually taper it off --Elevated troponin Likely type II [place] Trend troponins --A. fib Continue with IV metoprolol --History of temporal arthritis Biopsy-proven On methotrexate 15 mg q. Wednesday as well as prednisone Follow methotrexate level --Anxiety with depression On bupropion, venlafaxine and aripiprazole as an outpatient On hold currently --History of hypertension Hold spironolactone --BPH Continue with tamsulosin --Hypernatremia with hyperchloremia Likely from IV fluids Continue to monitor --Prophylaxis VTE: IPC's. Apixaban on hold GI: Protonix drip Lines: Peripheral Diet: N.p.o. Plan: In/out: + 6.7 L, urine output 2340 +10 L since coming to the hospital AB.42//82 on 30% DC Flagyl. Continue with Vanco, Rocephin and ampicillin for possible meningitis Patient is going for LP today We will consider giving him Lasix today. Lactic acidosis is trending down. Repeat H&H in the afternoon. If the H&H is still trending down we will consider repeating CT abdomen pelvis with IV contrast to see if the retroperitoneal bleed is getting worse. If the retroperitoneal bleed is not getting worse and hemoglobin is trending down colonoscopy could be thought of. I added VDRL as well as RPR to the labs. Patient's son Jacky [phone] I have personally spent 45 minutes of critical care time in the direct management of this patient. This is a life/limb threatening event. This includes time spent evaluating patient, direct bedside care, chart review, placing orders, interpretation of diagnostic studies, discussion with consultants, patient, and family members, as well as other required patient management activities. This time is exclusive of all separately billable procedures, and teaching time and separate from and in addition to any other critical care service time. Please note the above document was generated using voice recognition software. It may contain grammatical, syntax or spelling errors. (2) Anxiety and depression: (3) Paroxysmal atrial fibrillation: (4) Chronic obstructive pulmonary disease: (5) Chronic respiratory failure with hypoxia: (6) Temporal arteritis: (7) KAYKAY (acute kidney injury): Admission and Anticipated Discharge Date Admission Date: February 17, 2021 Subjective Patient seen and examined at bedside. No acute distress, no adverse events overnight Patient is RASS -2. He is breathing over the vent. On propofol 20, fentanyl 50 at the time of examination Heart rate in the 80s. Saturating 98% on 30% FiO2 Review of Systems Review of Systems: Unobtainable due to endotracheal tube Physical Exam Physical Exam: Constitutional: No acute distress HEENT: EOMI, PERRLA, positive ETT Respiratory system: Decreased air entry bilaterally, no wheeze, no rhonchi, positive crackles bilateral lower lobes CVS: S1-S2 positive, no murmurs or gallops Abdomen: Soft, obese, nontender, nondistended, no rebound, decreased bowel sounds Extremities: +2 pulses bilaterally radialis/ dorsalis pedis, no cyanosis, no edema Neuro: RASS -2, breathing over the vent Psych: Unable to assess G/U: Positive [place] Skin: no rashes, warm and dry Lymphatic: no cervical or axillary lymphadenopathy Results & Data Results & Data ([facility]) Vital Signs (Past 12 Hours) Vital Signs Temp Pulse Resp BP Pulse Ox 02/19/21 08:08 86 110/57 L 98 02/19/21 08:00 37 C 91 H 02/19/21 07:38 86 107/64 98 02/19/21 07:08 87 93/46 L 97 02/19/21 07:00 88 18 97 02/19/21 06:39 90 92/41 L 98 02/19/21 06:18 98 H 129/57 L 97 02/19/21 06:00 92 H 18 129/57 L 98 02/19/21 05:49 94 H 120/59 L 02/19/21 05:33 95 H 20 97 02/19/21 05:27 37 C 97 H 18 113/59 L 96 02/19/21 05:06 97 H 19 107/60 96 02/19/21 04:06 91 H 19 95/58 L 98 02/19/21 03:36 94 H 20 95/58 L 99 02/19/21 03:21 37 C 93 H 18 98/51 L 99 02/19/21 03:03 37 C 94 H 18 98/56 L 99 02/19/21 03:01 37 C 94 H 18 98/56 L 99 02/19/21 02:57 18 02/19/21 02:01 97 H 18 101/47 L 99 02/19/21 01:31 37.1 C 87 18 102/43 L 99 02/19/21 01:16 97 H 18 93/49 L 98 02/19/21 01:14 37 C 99 H 18 103/61 98 02/19/21 00:57 36.7 C 100 H 18 99/47 L 98 02/19/21 00:09 100 H 02/19/21 00:00 37.3 C 102 H 18 122/49 L 98 02/18/21 23:30 100 H 18 98 02/18/21 23:00 102 H 18 90/46 L 99 02/18/21 22:30 104 H 18 93/56 L 98 02/18/21 22:15 22 02/19/21 06:07 02/19/21 08:17 Coding Level of Care Code Critical Care 1st 30-74 mins Diagnoses Acute metabolic encephalopathy G93.41 Anxiety and depression F41.9; F32.9 Paroxysmal atrial fibrillation I48.0 Chronic obstructive pulmonary disease J44.9 COPD type: unspecified COPD Chronic respiratory failure with hypoxia J96.11 Temporal arteritis M31.6 KAYKAY (acute kidney injury) N17.9 Time Spent (min) 45 (1) Chronic obstructive pulmonary disease COPD type: unspecified COPD Qualified Code(s): J44.9 - Chronic obstructive pulmonary disease, unspecified
[2021-02-19] MEDS: cefTRIAXone SODIUM 2,000 MG in DEXTROSE 5% 50 ML IV SCH ×2 (10:43→22:51)
[2021-02-19] MEDS: TUBE FEEDING WATER FLUSH OG SCH ×3 (12:00→23:44)
[2021-02-19 13:33] LABS: Hematocrit (blood only) 26.4 % (42-52); Hemoglobin 9.2 g/dL (14.0-18.0); Mean Corpuscular Hgb Conc 34.8 g/dL (32-36); Mean Corpuscular Volume 100.4 fL (80-100); Mean Platelet Volume 10.2 fL (7.4-10.4); Nucleated RBC # (auto) 0.38 K/uL (0-0); Nucleated RBC % (auto) 1.4 %; Platelet Count 181 K/uL (130-400); RDW Coefficient of Variation 16.7 % (11.5-14.5); RDW Standard Deviation 59.5 fL (36.4-46.3); Red Blood Count 2.63 M/uL (4.7-6.1); White Blood Count 26.74 K/uL (4.8-10.8)
--- NOTE | 2021-02-19 13:43 | Fluoroscopy Report ---
FLUOROSCOPIC GUIDED LUMBAR PUNCTURE CLINICAL HISTORY: Change in mental status. PROCEDURE: The risks, benefits, and alternatives to the procedure were discussed with the patient's s on who provided phone consent. The patient was placed prone on the fluoroscopy table. The lower back was prepped and draped in the usual sterile fashion. 1% lidocaine was used for local anesthesia. Lum bar puncture was attempted utilizing 20-gauge spinal needles. Attempts were made at L3-L4, L4-L5, and L5-S1 by 2 radiologists. The needle appeared appropriately positioning on both AP and lateral views at L3-L4. There was no return of spinal fluid despite multiple repositioning attempts. Further attemp ts were made before the procedure was discontinued. There were no immediate complications. 17 spot im ages were saved. The patient was then returned to the ICU for further observation. Fluoroscopy time: 2.3 minutes IMPRESSION: Fluoroscopic guided lumbar puncture attempt as detailed above. The needle appeared approp riate positioned at L3-L4 with no return of spinal fluid. ACT 112: Negative or not required by law. Electronically signed by: Leroy Wasserman M.D. 02/19/2021 1:42 PM
[2021-02-19 14:36] LABS: Basophils # (auto) 0.02 K/uL (0-0.2); Basophils % (auto) 0.1 %; Echinocytes 1+; Immature Granulocytes # (auto) 0.38 K/uL (0.00-0.02); Immature Granulocytes % (auto) 1.4 %; Lymphocytes # (auto) 0.67 K/uL (1.2-3.4); Lymphocytes % (auto) 2.5 %; Monocytes # (auto) 0.95 K/uL (0.11-0.59); Monocytes % (auto) 3.6 %; Neutrophils # (auto) 24.72 K/uL (1.4-6.5); Neutrophils % (auto) 92.4 %; Ovalocytes 1+
[2021-02-19] MEDS: VANCOMYCIN HCL 1,250 MG in SODIUM CHLORIDE 0.9% 250 ML IV SCH (14:58)
[2021-02-19] MEDS: VANCOMYCIN HCL 1,500 MG in SODIUM CHLORIDE 0.9% 500 ML IV SCH (15:07)
--- NOTE | 2021-02-19 15:26 | Hospitalist Progress Note ---
Date of Service February 19, 2021 Assessment & Plan (1) Sepsis: present on arrival, unclear etiology at this time lactic acid has improved with aggressive fluids, not requiring pressors broad spectrum antibiotics (Ampicillin, Rocephin, Vancomycin) attempted LP twice today but no success, covering for meningitis as there is no obvious UTI or pneumonia or abdominal source of infection WBC elevated but improving follow up on final blood and urine cultures (2) Acute blood loss anemia: Hemoglobin dropped to 6.1 on 02/18, transfused two units, Hb is 9 EGD with normal esophagus, stomach, duodenum has evidence of bleed along psoas muscle, spontaneous retroperitoneal bleed is likely source of blood loss hold anticoagulation (3) Acute respiratory failure with hypoxia: breathing fast on low flow oxygen, confused due to sepsis was intubated electively to protect airway, plan for EGD continue ventilator today, stable on only PEEP 6 and FiO2 30% sedated with Fentanyl and Propofol (4) KAYKAY (acute kidney injury): Cr was 1.8, down to 1.6 and now 1.22, making urine via thorne electrolytes stable monitor closely (5) Acute metabolic encephalopathy: due to sepsis, lactic acidosis (LA is improving) currently sedated with Proprofol and Fentanyl (6) Chronic obstructive pulmonary disease: BiPAP initially, then down to room air but then intubated for EGD Solu Medrol 40 q24 Duo nebs PRN (7) Hypertension: Patient appears to be on furosemide 20 mg daily along with Lopressor 25 mg twice daily hold Eliquis continue metoprolol cancel cardiology consult for time being echo with EF of 70%, hyperdynamic LV in setting of sepsis, acute blood loss anemia (8) Temporal arteritis: Per previous documentation, patient was on 8 mg of prednisone with methotrexate Okay to hold prednisone as patient will be on Solu-Medrol (9) Dyslipidemia: Patient is on simvastatin 40mg, will check fasting lipid panel Admission and Anticipated Discharge Date Admission Date: February 17, 2021 Subjective patient stable on ventilator LP was attempted by two different radiologists today, no success, got into space but no fluid returned reviewed labs, Cr improving, lactic acid coming down, Hb stable after transfusion (2 units) no growth on cultures except a likely contaminant in one blood culture on Amoxicillin, Rocephin, Vancomycin only requiring PEEP 6 and FiO2 30% appreciate management by Dr. Pulido in ICU Review of Systems Review of Systems: Unobtainable due to cognitive status and Unobtainable due to endotracheal tube Physical Exam Constitutional: well developed, + ill appearing, + frail appearing and + mechanically ventilated Neck: trachea midline, no thyromegaly Respiratory: normal respiratory effort, lungs clear to auscultation (ventilated) Cardiovascular: Rate/Rhythm: regular rate and regular rhythm Heart Sounds: normal S1 and normal S2; no murmur Vessels: no JVD Extremities: normal capillary refill; no edema Gastrointestinal (Abdomen): normal bowel sounds, soft, nontender, no hepatosplenomegaly Skin: no rashes, warm and dry Neurologic: CN's II-XI intact bilaterally and + obtunded; no focal motor deficits Psychiatric: Orientation: + not alert Results & Data Results & Data ([facility]) Vital Signs (Past 12 Hours) Vital Signs Temp Pulse Resp BP Pulse Ox 02/19/21 15:02 97 H 23 94 02/19/21 13:40 86 103/61 97 02/19/21 13:00 36.5 C 02/19/21 11:09 86 121/72 96 02/19/21 10:50 86 18 96 02/19/21 10:38 88 163/77 H 96 02/19/21 10:09 87 156/69 H 98 02/19/21 09:08 85 142/68 H 98 02/19/21 08:38 86 137/57 L 98 02/19/21 08:08 86 110/57 L 98 02/19/21 08:00 37 C 91 H 02/19/21 07:38 86 107/64 98 02/19/21 07:08 87 93/46 L 97 02/19/21 07:00 88 18 97 02/19/21 06:39 90 92/41 L 98 02/19/21 06:18 98 H 129/57 L 97 02/19/21 06:00 92 H 18 129/57 L 98 02/19/21 05:49 94 H 120/59 L 02/19/21 05:33 95 H 20 97 02/19/21 05:27 37 C 97 H 18 113/59 L 96 02/19/21 05:06 97 H 19 107/60 96 02/19/21 04:06 91 H 19 95/58 L 98 02/19/21 03:36 94 H 20 95/58 L 99 Laboratory Results Laboratory Results - last 24 hr 02/17/21 02/18/21 02/18/21 11:51 10:55 16:36 WBC RBC Hgb POC Hgb 6.1 L* Hct POC Hct 18 L* MCV MCH MCHC RDW Std Deviation RDW Coeff of Melba Plt Count MPV Immature Gran % (Auto) Neut % (Auto) Lymph % (Auto) Emmet % (Auto) Eos % (Auto) Baso % (Auto) Neut # (Auto) Lymph # (Auto) Emmet # (Auto) Eos # (Auto) Baso # (Auto) Immature Gran # (Auto) Absolute Nucleated RBC Nucleated RBC % (auto) Toxic Vacuolation Basophilic Stippling Ovalocytes Echinocytes PT INR APTT PTT Ratio Sample Site R Radial POC pH 7.45 POC pCO2 35 POC pO2 411 H POC HCO3 24 POC Total CO2 25 POC Base Excess 0.0 ABG pH (Temp Correct) 7.456 H ABG pCO2 (Temp Corrct 35 POC ABG pO2 at Pt Temp 409 POC ABG O2 Sat 100.0 H Kodak Test Pass VBG pH O2 Delivery Device Ventilator POC O2 Rate 24 POC FiO2 100 Tidal Volume 430 PEEP 6 POC Sodium 147 H Sodium POC Potassium 3.6 Potassium Chloride Carbon Dioxide Anion Gap BUN Creatinine Est Cr Clr Drug Dosing Est GFR ( Amer) Est GFR (Non-Af Amer) BUN/Creatinine Ratio Glucose POC Glucose Lactate Calcium Phosphorus Magnesium Random Vancomycin RPR T.pallidum Ab (FTA-ABS) Bld Cult Staph aureus PCR Negative Blood Culture MRSA PCR Negative Blood Type O Negative Antibody Screen NEGATIVE Crossmatch See Detail 02/18/21 02/18/21 02/18/21 16:49 18:15 18:15 WBC RBC Hgb POC Hgb Hct POC Hct MCV MCH MCHC RDW Std Deviation RDW Coeff of Melba Plt Count MPV Immature Gran % (Auto) Neut % (Auto) Lymph % (Auto) Emmet % (Auto) Eos % (Auto) Baso % (Auto) Neut # (Auto) Lymph # (Auto) Emmet # (Auto) Eos # (Auto) Baso # (Auto) Immature Gran # (Auto) Absolute Nucleated RBC Nucleated RBC % (auto) Toxic Vacuolation Basophilic Stippling Ovalocytes Echinocytes PT INR APTT PTT Ratio Sample Site POC pH POC pCO2 POC pO2 POC HCO3 POC Total CO2 POC Base Excess ABG pH (Temp Correct) ABG pCO2 (Temp Corrct POC ABG pO2 at Pt Temp POC ABG O2 Sat Kodak Test VBG pH 7.34 L O2 Delivery Device POC O2 Rate POC FiO2 Tidal Volume PEEP POC Sodium Sodium 149 H POC Potassium Potassium 3.8 Chloride 117 H Carbon Dioxide 24 Anion Gap 8.0 BUN 48 H Creatinine 1.35 D Est Cr Clr Drug Dosing 62.9 Est GFR ( Amer) 58.7 Est GFR (Non-Af Amer) 50.6 BUN/Creatinine Ratio 35.4 H Glucose 118 H POC Glucose 134 H Lactate Calcium 7.1 L Phosphorus 2.6 Magnesium 2.0 Random Vancomycin RPR T.pallidum Ab (FTA-ABS) Bld Cult Staph aureus PCR Blood Culture MRSA PCR Blood Type Antibody Screen Crossmatch 02/18/21 02/18/21 02/18/21 18:15 18:15 20:27 WBC 30.04 H* RBC 2.07 L Hgb 7.1 L POC Hgb Hct 20.8 L* POC Hct MCV 100.5 H MCH 34.3 H MCHC 34.1 RDW Std Deviation 56.5 H RDW Coeff of Melba 15.6 H Plt Count 209 MPV 9.9 Immature Gran % (Auto) Neut % (Auto) Lymph % (Auto) Emmet % (Auto) Eos % (Auto) Baso % (Auto) Neut # (Auto) Lymph # (Auto) Emmet # (Auto) Eos # (Auto) Baso # (Auto) Immature Gran # (Auto) Absolute Nucleated RBC 0.06 H Nucleated RBC % (auto) 0.2 Toxic Vacuolation Basophilic Stippling Ovalocytes Echinocytes PT INR APTT PTT Ratio Sample Site POC pH POC pCO2 POC pO2 POC HCO3 POC Total CO2 POC Base Excess ABG pH (Temp Correct) ABG pCO2 (Temp Corrct POC ABG pO2 at Pt Temp POC ABG O2 Sat Kodak Test VBG pH O2 Delivery Device POC O2 Rate POC FiO2 Tidal Volume PEEP POC Sodium Sodium POC Potassium Potassium Chloride Carbon Dioxide Anion Gap BUN Creatinine Est Cr Clr Drug Dosing Est GFR ( Amer) Est GFR (Non-Af Amer) BUN/Creatinine Ratio Glucose POC Glucose 123 H Lactate 5.4 H* Calcium Phosphorus Magnesium Random Vancomycin RPR T.pallidum Ab (FTA-ABS) Bld Cult Staph aureus PCR Blood Culture MRSA PCR Blood Type Antibody Screen Crossmatch 02/18/21 02/18/21 02/19/21 23:38 23:48 04:05 WBC RBC Hgb 6.4 L* POC Hgb Hct 19.1 L* POC Hct MCV MCH MCHC RDW Std Deviation RDW Coeff of Melba Plt Count MPV Immature Gran % (Auto) Neut % (Auto) Lymph % (Auto) Emmet % (Auto) Eos % (Auto) Baso % (Auto) Neut # (Auto) Lymph # (Auto) Emmet # (Auto) Eos # (Auto) Baso # (Auto) Immature Gran # (Auto) Absolute Nucleated RBC Nucleated RBC % (auto) Toxic Vacuolation Basophilic Stippling Ovalocytes Echinocytes PT INR APTT PTT Ratio Sample Site POC pH POC pCO2 POC pO2 POC HCO3 POC Total CO2 POC Base Excess ABG pH (Temp Correct) ABG pCO2 (Temp Corrct POC ABG pO2 at Pt Temp POC ABG O2 Sat Kodak Test VBG pH O2 Delivery Device POC O2 Rate POC FiO2 Tidal Volume PEEP POC Sodium Sodium POC Potassium Potassium Chloride Carbon Dioxide Anion Gap BUN Creatinine Est Cr Clr Drug Dosing Est GFR ( Amer) Est GFR (Non-Af Amer) BUN/Creatinine Ratio Glucose POC Glucose 151 H 133 H Lactate Calcium Phosphorus Magnesium Random Vancomycin RPR T.pallidum Ab (FTA-ABS) Bld Cult Staph aureus PCR Blood Culture MRSA PCR Blood Type Antibody Screen Crossmatch 02/19/21 02/19/21 02/19/21 05:20 05:32 05:44 WBC RBC Hgb POC Hgb 7.1 L 8.8 L Hct POC Hct 21 L 26 L MCV MCH MCHC RDW Std Deviation RDW Coeff of Melba Plt Count MPV Immature Gran % (Auto) Neut % (Auto) Lymph % (Auto) Emmet % (Auto) Eos % (Auto) Baso % (Auto) Neut # (Auto) Lymph # (Auto) Emmet # (Auto) Eos # (Auto) Baso # (Auto) Immature Gran # (Auto) Absolute Nucleated RBC Nucleated RBC % (auto) Toxic Vacuolation Basophilic Stippling Ovalocytes Echinocytes PT INR APTT PTT Ratio Sample Site L Radial R Radial L Brachial POC pH 7.31 L 7.26 L 7.42 POC pCO2 46 52 H 34 L POC pO2 < 32 L < 32 L 82 POC HCO3 24 23 22 POC Total CO2 25 25 23 L POC Base Excess -3.0 -4.0 -2.0 ABG pH (Temp Correct) 7.313 L 7.255 L ABG pCO2 (Temp Corrct 46 52 H POC ABG pO2 at Pt Temp 17 23 POC ABG O2 Sat 21.0 L 31.0 L 96.0 H Kodak Test Pass Pass NA VBG pH O2 Delivery Device Ventilator Ventilator Ventilator POC O2 Rate 18 18 18 POC FiO2 30 30 30 Tidal Volume 430 430 430 PEEP 6 6 6 POC Sodium 144 148 H Sodium POC Potassium 3.9 3.9 Potassium Chloride Carbon Dioxide Anion Gap BUN Creatinine Est Cr Clr Drug Dosing Est GFR ( Amer) Est GFR (Non-Af Amer) BUN/Creatinine Ratio Glucose POC Glucose Lactate Calcium Phosphorus Magnesium Random Vancomycin RPR T.pallidum Ab (FTA-ABS) Bld Cult Staph aureus PCR Blood Culture MRSA PCR Blood Type Antibody Screen Crossmatch 02/19/21 02/19/21 02/19/21 05:54 06:07 06:07 WBC 26.16 H RBC 2.65 L Hgb 8.8 L POC Hgb Hct 26.6 L POC Hct MCV 100.4 H MCH 33.2 MCHC 33.1 RDW Std Deviation 58.5 H RDW Coeff of Melba 16.5 H Plt Count 147 MPV 10.3 Immature Gran % (Auto) 1.3 Neut % (Auto) 91.3 Lymph % (Auto) 2.9 Emmet % (Auto) 4.5 Eos % (Auto) 0.0 Baso % (Auto) 0.0 Neut # (Auto) 23.86 H Lymph # (Auto) 0.76 L Emmet # (Auto) 1.18 H Eos # (Auto) 0.00 Baso # (Auto) 0.01 Immature Gran # (Auto) 0.35 H Absolute Nucleated RBC 0.17 H Nucleated RBC % (auto) 0.7 Toxic Vacuolation Occasional Basophilic Stippling Occasional Ovalocytes Echinocytes PT 13.3 H INR 1.3 H APTT 21.7 PTT Ratio 0.8 Sample Site POC pH POC pCO2 POC pO2 POC HCO3 POC Total CO2 POC Base Excess ABG pH (Temp Correct) ABG pCO2 (Temp Corrct POC ABG pO2 at Pt Temp POC ABG O2 Sat Kodak Test VBG pH O2 Delivery Device POC O2 Rate POC FiO2 Tidal Volume PEEP POC Sodium Sodium POC Potassium Potassium Chloride Carbon Dioxide Anion Gap BUN Creatinine Est Cr Clr Drug Dosing Est GFR ( Amer) Est GFR (Non-Af Amer) BUN/Creatinine Ratio Glucose POC Glucose Lactate 4.2 H* Calcium Phosphorus Magnesium Random Vancomycin RPR T.pallidum Ab (FTA-ABS) Bld Cult Staph aureus PCR Blood Culture MRSA PCR Blood Type Antibody Screen Crossmatch 02/19/21 02/19/21 02/19/21 06:07 07:34 08:17 WBC RBC Hgb POC Hgb Hct POC Hct MCV MCH MCHC RDW Std Deviation RDW Coeff of Melba Plt Count MPV Immature Gran % (Auto) Neut % (Auto) Lymph % (Auto) Emmet % (Auto) Eos % (Auto) Baso % (Auto) Neut # (Auto) Lymph # (Auto) Emmet # (Auto) Eos # (Auto) Baso # (Auto) Immature Gran # (Auto) Absolute Nucleated RBC Nucleated RBC % (auto) Toxic Vacuolation Basophilic Stippling Ovalocytes Echinocytes PT INR APTT PTT Ratio Sample Site POC pH POC pCO2 POC pO2 POC HCO3 POC Total CO2 POC Base Excess ABG pH (Temp Correct) ABG pCO2 (Temp Corrct POC ABG pO2 at Pt Temp POC ABG O2 Sat Kodak Test VBG pH O2 Delivery Device POC O2 Rate POC FiO2 Tidal Volume PEEP POC Sodium Sodium 146 H POC Potassium Potassium 4.1 Chloride 116 H Carbon Dioxide 26 Anion Gap 4.0 BUN 40 H Creatinine 1.22 Est Cr Clr Drug Dosing 71.1 Est GFR ( Amer) 66.3 Est GFR (Non-Af Amer) 57.2 BUN/Creatinine Ratio 32.5 H Glucose 128 H POC Glucose 121 H Lactate Calcium 7.0 L Phosphorus 2.5 Magnesium 2.1 Random Vancomycin RPR T.pallidum Ab (FTA-ABS) Bld Cult Staph aureus PCR Blood Culture MRSA PCR Blood Type Antibody Screen Crossmatch 02/19/21 02/19/21 02/19/21 13:14 13:14 13:14 WBC 26.74 H RBC 2.63 L Hgb 9.2 L POC Hgb Hct 26.4 L POC Hct MCV 100.4 H MCH 35.0 H MCHC 34.8 RDW Std Deviation 59.5 H RDW Coeff of Melba 16.7 H Plt Count 181 MPV 10.2 Immature Gran % (Auto) 1.4 Neut % (Auto) 92.4 Lymph % (Auto) 2.5 Emmet % (Auto) 3.6 Eos % (Auto) 0.0 Baso % (Auto) 0.1 Neut # (Auto) 24.72 H Lymph # (Auto) 0.67 L Emmet # (Auto) 0.95 H Eos # (Auto) 0.00 Baso # (Auto) 0.02 Immature Gran # (Auto) 0.38 H Absolute Nucleated RBC 0.38 H Nucleated RBC % (auto) 1.4 Toxic Vacuolation Basophilic Stippling Ovalocytes 1+ Echinocytes 1+ PT INR APTT PTT Ratio Sample Site POC pH POC pCO2 POC pO2 POC HCO3 POC Total CO2 POC Base Excess ABG pH (Temp Correct) ABG pCO2 (Temp Corrct POC ABG pO2 at Pt Temp POC ABG O2 Sat Kodak Test VBG pH O2 Delivery Device POC O2 Rate POC FiO2 Tidal Volume PEEP POC Sodium Sodium POC Potassium Potassium Chloride Carbon Dioxide Anion Gap BUN Creatinine Est Cr Clr Drug Dosing Est GFR ( Amer) Est GFR (Non-Af Amer) BUN/Creatinine Ratio Glucose POC Glucose Lactate Calcium Phosphorus Magnesium Random Vancomycin RPR Pending T.pallidum Ab (FTA-ABS) Pending Bld Cult Staph aureus PCR Blood Culture MRSA PCR Blood Type Antibody Screen Crossmatch 02/19/21 02/19/21 02/19/21 13:14 13:14 13:43 WBC RBC Hgb POC Hgb Hct POC Hct MCV MCH MCHC RDW Std Deviation RDW Coeff of Melba Plt Count MPV Immature Gran % (Auto) Neut % (Auto) Lymph % (Auto) Emmet % (Auto) Eos % (Auto) Baso % (Auto) Neut # (Auto) Lymph # (Auto) Emmet # (Auto) Eos # (Auto) Baso # (Auto) Immature Gran # (Auto) Absolute Nucleated RBC Nucleated RBC % (auto) Toxic Vacuolation Basophilic Stippling Ovalocytes Echinocytes PT INR APTT PTT Ratio Sample Site POC pH POC pCO2 POC pO2 POC HCO3 POC Total CO2 POC Base Excess ABG pH (Temp Correct) ABG pCO2 (Temp Corrct POC ABG pO2 at Pt Temp POC ABG O2 Sat Kodak Test VBG pH O2 Delivery Device POC O2 Rate POC FiO2 Tidal Volume PEEP POC Sodium Sodium POC Potassium Potassium Chloride Carbon Dioxide Anion Gap BUN Creatinine Est Cr Clr Drug Dosing Est GFR ( Amer) Est GFR (Non-Af Amer) BUN/Creatinine Ratio Glucose POC Glucose 123 H Lactate 3.6 H* Calcium Phosphorus Magnesium Random Vancomycin 10.1 RPR T.pallidum Ab (FTA-ABS) Bld Cult Staph aureus PCR Blood Culture MRSA PCR Blood Type Antibody Screen Crossmatch Medications Administered Current Inpatient Medications Acetaminophen (Acetaminophen 325 Mg Tab) 650 mg PO Q4H PRN PRN Reason: Pain or Fever Stop: 03/19/21 16:05 Albuterol (Albut/Ipratrop 3mg/0.5mg Neb 3 Ml Vial) 3 ml NEB QIDR PRN PRN Reason: Shortness Of Breath Or Wheezing Stop: 03/19/21 16:05 Aripiprazole (Aripiprazole 5 Mg Tab) 5 mg PO [facility] Stop: 03/20/21 08:59 Last Admin: 02/18/21 08:02 Dose: Not Given Documented by: Bupropion HCl (Bupropion Sr 100 Mg Tabcr) 100 mg PO [facility] Stop: 03/20/21 08:59 Last Admin: 02/18/21 08:02 Dose: Not Given Documented by: Cyanocobalamin (Cyanocobalamin 500 Mcg Tablet (Vitamin B-12)) 1,000 mcg PO [facility] Stop: 03/20/21 08:59 Last Admin: 02/18/21 08:02 Dose: Not Given Documented by: Fentanyl Citrate (Fentanyl Bolus From Bag) 50 mcg IV Q60M PRN PRN Reason: Pain or Agitation Stop: 03/04/21 15:33 Folic Acid (Folic Acid 1 Mg Tab) 1 mg PO [facility] Stop: 03/20/21 08:59 Last Admin: 02/18/21 08:02 Dose: Not Given Documented by: Pantoprazole Sodium 40 mg/ (Dextrose) 100 mls @ 20 mls/hr IV Q5H [facility] Stop: 03/20/21 03:29 Last Admin: 02/19/21 09:55 Dose: 8 mg/hr, 20 mls/hr Documented by: Folic Acid 1 mg/ Syringe 10 mls @ 5 [facility] [place] Stop: 03/20/21 08:59 Last Admin: 02/19/21 09:55 Dose: 5 mls/min Documented by: Ceftriaxone Sodium 2,000 mg/ (Dextrose) 70 mls @ 140 mls/hr IV Q12H [facility] Stop: 02/28/21 10:59 Last Infusion: 02/19/21 11:20 Dose: Infused Documented by: Propofol (Diprivan) 1,000 mg in 100 mls @ 14.292 mls/hr IV .Q7H [facility]; Protocol Stop: 02/21/21 15:44 Last Admin: 02/19/21 14:19 Dose: 20 mcg/kg/min, 14.3 mls/hr Documented by: Fentanyl Citrate (Fentanyl Drip) 1,250 mcg in 250 mls @ 30 mls/hr IV .Q8H20M [facility]; Protocol Stop: 03/04/21 15:44 Last Admin: 02/19/21 13:34 Dose: 50 mcg/hr, 10 mls/hr Documented by: Dextrose/Sodium Chloride (D5w And 1/2nss) 1,000 mls @ 60 mls/hr IV .[id number] [facility] Stop: 03/21/21 07:44 Last Admin: 02/19/21 08:01 Dose: 60 mls/hr Documented by: Methylprednisolone 40 mg/ (Syringe) 0.64 mls @ 1.5 mls/min IV Q24H [facility] Stop: 03/22/21 05:59 Ampicillin Sodium 2,000 mg/ (Sodium Chloride) 100 mls @ 200 mls/hr IV Q4 [facility]; Protocol Stop: 03/01/21 11:59 Last Infusion: 02/19/21 14:15 Dose: Infused Documented by: Vancomycin HCl 1,250 mg/ (Sodium Chloride) 275 mls @ 200 mls/hr IV Q12H [facility] Stop: 02/24/21 23:59 Last Admin: 02/19/21 14:58 Dose: 200 mls/hr Documented by: Insulin Aspart (Insulin Aspart 100 Units/Ml 3 Ml Pen) 0 units SC Q4 [facility] Stop: 03/20/21 15:59 Last Admin: 02/19/21 13:44 Dose: Not Given Documented by: Metoprolol Tartrate (Metoprolol Tartrate 25 Mg Tab) 25 mg PO BID [facility] Stop: 03/19/21 20:59 Last Admin: 02/18/21 08:02 Dose: Not Given Documented by: Metoprolol Tartrate (Metoprolol Tartrate 1 Mg/Ml Vial) 2.5 mg IV Q6 [facility] Stop: 03/20/21 05:59 Last Admin: 02/19/21 13:47 Dose: Not Given Documented by: Miscellaneous Information (Vancomycin Consult Active) 1 ea N/A UD PRN PRN Reason: Consult Stop: 03/19/21 16:05 Ondansetron HCl (Ondansetron Inj 2 Mg/Ml 2 Ml Vial) 4 mg IV Q6H PRN PRN Reason: Nausea Stop: 03/19/21 16:05 Potassium Chloride (Potassium Chloride Crtab 20 Meq Tabcr) 20 meq PO QAM [facility] Stop: 03/20/21 08:59 Last Admin: 02/18/21 08:02 Dose: Not Given Documented by: Propofol (Propofol Bolus From Bag) 20 mg IV Q5M PRN PRN Reason: Sedation Stop: 02/21/21 15:33 Simvastatin (Simvastatin 40 Mg Tab) 40 mg PO QPM [facility] Stop: 03/19/21 20:59 Last Admin: 02/17/21 21:38 Dose: Not Given Documented by: Spironolactone (Spironolactone 25 Mg Tab) 50 mg PO BID17 [facility] Stop: 03/19/21 16:59 Last Admin: 02/17/21 18:13 Dose: Not Given Documented by: Tamsulosin HCl (Tamsulosin Hcl 0.4 Mg Cap) 0.4 mg PO QAM [facility] Stop: 03/20/21 08:59 Last Admin: 02/18/21 08:02 Dose: Not Given Documented by: Venlafaxine HCl (Venlafaxine Hcl Xr 75 Mg Capxr) [facility] [place] Stop: 03/20/21 08:59 Last Admin: 02/18/21 08:03 Dose: Not Given Documented by: Vitamin D (Cholecalciferol 400 Units 10 Mcg Tab) 800 units PO QAM [facility] Stop: 03/20/21 08:59 Last Admin: 02/18/21 08:02 Dose: Not Given Documented by: PG Care Time/CCT Total # of Minutes Spent Total Time Spent with Patient: Total time spent is greater than 50% in coordination of care (as documented) at patient's floor/unit and/or counseling patient: Coding Level of Care Code 81778 Subseq Hosp Care Lvl 3 Diagnoses Sepsis A41.9 Sepsis acute organ dysfunction status: unspecified Sepsis type: sepsis due to unspecified organism Acute blood loss anemia D62 Acute respiratory failure with hypoxia J96.01 KAYKAY (acute kidney injury) N17.9 Acute metabolic encephalopathy G93.41 Chronic obstructive pulmonary disease J44.9 COPD type: unspecified COPD Hypertension I10 Temporal arteritis M31.6 Dyslipidemia E78.5 (1) Sepsis Sepsis acute organ dysfunction status: unspecified Sepsis type: sepsis due to unspecified organism Qualified Code(s): A41.9 - Sepsis, unspecified organism (2) Chronic obstructive pulmonary disease COPD type: unspecified COPD Qualified Code(s): J44.9 - Chronic obstructive pulmonary disease, unspecified
--- NOTE | 2021-02-19 20:17 | Communication Note ---
Date of Service: February 19, 2021 Procedure: Pronation Maneuver Indication: Requiring lung recruitment intervention for LP Patient requiring pronation in the setting of preparation for lumbar puncture by radiology. Appropriate staff was assembled including myself, Respiratory Therapy, and Nursing Staff. A time-out was completed verifying correct patient, time from recent pronation, current ventilator settings, review of any prior issues during pronation maneuvers. Patient was fully undressed as to be able to view all current IV sites, central venous access sites, arterial lines, e ndotracheal tube, Mendiola catheter, etc. After properly identifying/securing all lines, tubes, etc, On my count, the patient was slid to the edge of the bed. After reevaluating all lines, tubes, etc., the patient was then placed on their side allowing for RT to maintain control of ET tube and ready for completion of Pronation maneuver. Final check of all lines, tubes, etc. was completed by myself and nursing staff. Patient was getting adequate tidal volume. Blood pressure, heart rhythm, and oxygen saturations were monitored for several minutes s/p maneuver. Discussion was held with patients RN and RT regarding ongoing management. Patient tolerated maneuver well. No immediate complications were noted. After the LP was read by the radiologist, I was present when the patient was supine again. Again same adequate measures were taken as documented above I have personally spent 30 minutes additional minutes of critical care time in the direct management of this patient. This is a life/limb threatening event. This includes time spent evaluating patient, direct bedside care, chart review, placing orders, interpretation of diagnostic studies, discussion with consultants, patient, and family members, as well as other required patient management activities. This time is exclusive of all separately billable procedures, and teaching time and separate from and in addition to any other critical care service time Coding Level of Care Code Critical Care orion addt'l 30 min
[2021-02-19] MEDS ORDERED: LORazepam 2 MG/4 ML VIAL IV STA (20:31)
[2021-02-19 21:19] LABS: Hematocrit (blood only) 27.1 % (42-52)
[2021-02-20] MEDS: INSULIN ASPART 100 UNITS/ML 3 ML PEN SC SCH ×6 (00:04→20:15)
[2021-02-20] MEDS: VANCOMYCIN HCL 1,250 MG in SODIUM CHLORIDE 0.9% 250 ML IV SCH ×2 (02:14→14:09)
[2021-02-20] MEDS: D5W AND 1/2NSS 1,000 ML IV SCH (02:14)
[2021-02-20] MEDS: AMPICILLIN 2,000 MG in SODIUM CHLOR 0.9% AD-VAN 100 ML IV SCH ×6 (03:45→23:37)
[2021-02-20] MEDS: propofoL 1,000 MG/100 ML VIAL IV SCH ×7 (03:46→20:26)
[2021-02-20] MEDS: PANTOprazole 40 MG in DEXTROSE 5% 100 ML IV SCH ×5 (04:12→19:29)
[2021-02-20 04:34] LABS: Basophils # (auto) 0.01 K/uL (0-0.2); Hematocrit (blood only) 23.3 % (42-52); Hemoglobin 7.8 g/dL (14.0-18.0); Immature Granulocytes # (auto) 0.66 K/uL (0.00-0.02); Immature Granulocytes % (auto) 3.1 %; Lymphocytes # (auto) 0.81 K/uL (1.2-3.4); Lymphocytes % (auto) 3.8 %; Mean Corpuscular Hemoglobin 33.2 pg (25-34); Mean Corpuscular Hgb Conc 33.5 g/dL (32-36); Mean Corpuscular Volume 99.1 fL (80-100); Monocytes # (auto) 1.08 K/uL (0.11-0.59); Monocytes % (auto) 5.1 %; Neutrophils # (auto) 18.82 K/uL (1.4-6.5); Nucleated RBC # (auto) 0.58 K/uL (0-0); Nucleated RBC % (auto) 2.7 %; Platelet Count 156 K/uL (130-400); RDW Coefficient of Variation 16.7 % (11.5-14.5); RDW Standard Deviation 59.4 fL (36.4-46.3); Red Blood Count 2.35 M/uL (4.7-6.1); White Blood Count 21.38 K/uL (4.8-10.8)
[2021-02-20 04:46] LABS: INR 1.2 (0.9-1.1); Partial Thromboplastin Time 25.5 Seconds (21.0-31.0); Prothrombin Time 12.3 Seconds (9.0-12.0)
[2021-02-20 04:51] LABS: Pappenheimer Bodies 1+; Polychromasia 1+
[2021-02-20 04:56] LABS: BUN Creatinine Ratio 24.3 (10-20); Calcium 6.9 mg/dl (8.5-10.1); Creatinine Clr Calc Pharmacy 83.4 ml/min; Est GFR (African American) 80.5 ml/min; Est GFR (Non-African American) 69.4 ml/min; Magnesium 2.1 mg/dl (1.8-2.4); Phosphorus 2.1 mg/dl (2.5-4.9); Potassium 3.9 mmol/L (3.5-5.1)
[2021-02-20] MEDS: methylPREDNISolone 40 MG in SYRINGE 0 ML IV SCH (05:42)
[2021-02-20] MEDS: METOPROLOL TARTRATE 1 MG/ML VIAL IV SCH ×4 (05:42→23:37)
[2021-02-20] MEDS: TUBE FEEDING WATER FLUSH OG SCH ×5 (05:43→23:37)
[2021-02-20] MEDS ORDERED: FUROSEMIDE 20 MG in SYRINGE 0 ML IV ONE (07:42)
[2021-02-20] MEDS ORDERED: FUROSEMIDE 40 MG/4 ML VIAL IV ONE (08:00)
[2021-02-20] MEDS: fentaNYL DRIP 1,250 MCG/250 ML BAG IV SCH ×3 (08:03→19:28)
[2021-02-20] MEDS: FOLIC ACID 1 MG in SYRINGE 9.8 ML IV SCH (08:06)
[2021-02-20] MEDS: DEXTROSE 5% 1,000 ML IV SCH (08:21)
--- NOTE | 2021-02-20 08:38 | XRay Report ---
XR chest 1V portable HISTORY: Respiratory failure. COMPARISON: Chest 02/19/2021. FINDINGS: Lines and tubes remain unchanged in position. The heart remains mildly enlarged. No pneumot horax. Moderate hiatus hernia, unchanged. Emphysema. Interstitial thickening at the lung bases persis t. IMPRESSION: 1. Satisfactory support line placement. 2. Cardiomegaly, unchanged. 3. No change in the bibasilar interstitial thickening. No new focal lung consolidations. ACT 112: Negative or not required by law. Electronically signed by: Óscar Justice M.D. 02/20/2021 8:36 AM
[2021-02-20] MEDS ORDERED: levETIRAcetam 500 MG in 0.9 % SODIUM CHLORIDE 100 ML IV SCH (09:00)
--- NOTE | 2021-02-20 09:03 | Hospitalist Progress Note ---
Date of Service February 19, 2021 Assessment & Plan (1) Sepsis: present on arrival, unclear etiology at this time lactic acid has improved with aggressive fluids, not requiring pressors, not checking LA further broad spectrum antibiotics (Ampicillin, Rocephin, Vancomycin) attempted LP twice 02/19 but no success, covering for meningitis as there is no obvious UTI or pneumonia or abdominal source of infection WBC elevated but improving, down to 21k follow up on final blood and urine cultures (2) Acute blood loss anemia: Hemoglobin dropped to 6.1 on 02/18, transfused two units, Hb is 7.8 EGD with normal esophagus, stomach, duodenum has evidence of bleed along psoas muscle, spontaneous retroperitoneal bleed is likely source of blood loss hold anticoagulation (3) Acute respiratory failure with hypoxia: breathing fast on low flow oxygen, confused on admission due to sepsis was intubated electively to protect airway, plan for EGD continue ventilator today, stable on only PEEP 6 and FiO2 30% sedated with Fentanyl and Propofol try for extubation 02/20 (4) KAYKAY (acute kidney injury): Cr was 1.8, down to 1.6 and now 1.22, making urine via thorne electrolytes stable monitor closely (5) Acute metabolic encephalopathy: due to sepsis, lactic acidosis (LA is improving) currently sedated with Proprofol and Fentanyl (6) Chronic obstructive pulmonary disease: BiPAP initially, then down to room air but then intubated for EGD Solu Medrol 40 q24 Duo nebs PRN (7) Hypertension: Patient appears to be on furosemide 20 mg daily along with Lopressor 25 mg twice daily hold Eliquis continue metoprolol cancel cardiology consult for time being echo with EF of 70%, hyperdynamic LV in setting of sepsis, acute blood loss anemia (8) Temporal arteritis: Per previous documentation, patient was on 8 mg of prednisone with methotrexate Okay to hold prednisone as patient will be on Solu-Medrol (9) Dyslipidemia: Patient is on simvastatin 40mg, will check fasting lipid panel Admission and Anticipated Discharge Date Admission Date: February 17, 2021 Subjective reviewed labs, WBC down to 21k, Hb 7.8, Cr is down to 1 and electrolytes stable no significant growth on blood and urine cultures ICU is managing, he is stable on ventilator, defer weaning trial to them no ROS due to endotracheal tube Review of Systems Review of Systems: Unobtainable due to cognitive status and Unobtainable due to endotracheal tube Physical Exam Constitutional: well developed, + ill appearing, + frail appearing and + mechanically ventilated Neck: trachea midline, no thyromegaly Respiratory: normal respiratory effort, lungs clear to auscultation (v entilated) + labored breathing and + tachypneic Auscultation: lungs clear to auscultation bilaterally Cardiovascular: Rate/Rhythm: regular rate and regular rhythm Heart Sounds: normal S1 and normal S2; no murmur Vessels: no JVD Extremities: normal capillary refill; no edema Gastrointestinal (Abdomen): normal bowel sounds, soft, nontender, no hepatosplenomegaly Skin: no rashes, warm and dry Neurologic: CN's II-XI intact bilaterally and + obtunded; no focal motor deficits Psychiatric: Orientation: + not alert Results & Data Results & Data ([facility]) Vital Signs (Past 12 Hours) Vital Signs Temp Pulse Resp BP Pulse Ox 02/20/21 07:10 75 21 99 02/20/21 06:10 67 15 139/51 L 98 02/20/21 05:42 60 02/20/21 05:40 69 16 124/50 L 98 02/20/21 05:10 80 16 146/53 H 98 02/20/21 04:40 72 16 133/49 L 98 02/20/21 04:10 36.9 C 60 16 125/47 L 98 02/20/21 03:40 67 15 143/46 H 96 02/20/21 03:14 63 15 95 02/20/21 03:10 59 L 15 124/48 L 96 02/20/21 02:40 67 15 138/48 L 97 02/20/21 02:10 72 15 142/53 H 96 02/20/21 01:40 72 15 136/52 L 98 02/20/21 01:10 60 15 138/58 L 96 02/20/21 00:40 67 15 123/54 L 97 02/20/21 00:10 68 15 121/52 L 98 02/19/21 23:45 87 160/72 H 02/19/21 23:40 36.8 C 86 15 160/72 H 95 02/19/21 23:10 86 15 151/61 H 97 02/19/21 23:03 16 02/19/21 22:30 80 15 149/56 H 99 02/19/21 21:11 91 H 15 99/45 L 98 Laboratory Results Laboratory Results - last 24 hr 02/18/21 02/19/21 02/19/21 12:46 13:14 13:14 WBC 26.74 H RBC 2.63 L Hgb 9.2 L Hct 26.4 L MCV 100.4 H MCH 35.0 H MCHC 34.8 RDW Std Deviation 59.5 H RDW Coeff of Melba 16.7 H Plt Count 181 MPV 10.2 Immature Gran % (Auto) 1.4 Neut % (Auto) 92.4 Lymph % (Auto) 2.5 [place] % (Auto) 3.6 Eos % (Auto) 0.0 Baso % (Auto) 0.1 Neut # (Auto) 24.72 H Lymph # (Auto) 0.67 L [place] # (Auto) 0.95 H Eos # (Auto) 0.00 Baso # (Auto) 0.02 Immature Gran # (Auto) 0.38 H Absolute Nucleated RBC 0.38 H Nucleated RBC % (auto) 1.4 Polychromasia Pappenheimer Bodies Ovalocytes 1+ Echinocytes 1+ PT INR APTT PTT Ratio VBG pH Sodium Potassium Chloride Carbon Dioxide Anion Gap BUN Creatinine Est Cr Clr Drug Dosing Est GFR ( Amer) Est GFR (Non-Af Amer) BUN/Creatinine Ratio Glucose POC Glucose Lactate Calcium Phosphorus Magnesium Random Vancomycin Methotrexate <0.20 RPR Nonreactive T.pallidum Ab (FTA-ABS) 02/19/21 02/19/21 02/19/21 13:14 13:14 13:14 WBC RBC Hgb Hct MCV MCH MCHC RDW Std Deviation RDW Coeff of Melba Plt Count MPV Immature Gran % (Auto) Neut % (Auto) Lymph % (Auto) [place] % (Auto) Eos % (Auto) Baso % (Auto) Neut # (Auto) Lymph # (Auto) [place] # (Auto) Eos # (Auto) Baso # (Auto) Immature Gran # (Auto) Absolute Nucleated RBC Nucleated RBC % (auto) Polychromasia Pappenheimer Bodies Ovalocytes Echinocytes PT INR APTT PTT Ratio VBG pH Sodium Potassium Chloride Carbon Dioxide Anion Gap BUN Creatinine Est Cr Clr Drug Dosing Est GFR ( Amer) Est GFR (Non-Af Amer) BUN/Creatinine Ratio Glucose POC Glucose Lactate 3.6 H* Calcium Phosphorus Magnesium Random Vancomycin 10.1 Methotrexate RPR T.pallidum Ab (FTA-ABS) Pending 02/19/21 02/19/21 02/19/21 13:43 16:23 20:16 WBC RBC Hgb Hct MCV MCH MCHC RDW Std Deviation RDW Coeff of Melba Plt Count MPV Immature Gran % (Auto) Neut % (Auto) Lymph % (Auto) [place] % (Auto) Eos % (Auto) Baso % (Auto) Neut # (Auto) Lymph # (Auto) [place] # (Auto) Eos # (Auto) Baso # (Auto) Immature Gran # (Auto) Absolute Nucleated RBC Nucleated RBC % (auto) Polychromasia Pappenheimer Bodies Ovalocytes Echinocytes PT INR APTT PTT Ratio VBG pH Sodium Potassium Chloride Carbon Dioxide Anion Gap BUN Creatinine Est Cr Clr Drug Dosing Est GFR ( Amer) Est GFR (Non-Af Amer) BUN/Creatinine Ratio Glucose POC Glucose 123 H 131 H 135 H Lactate Calcium Phosphorus Magnesium Random Vancomycin Methotrexate RPR T.pallidum Ab (FTA-ABS) 02/19/21 02/19/21 02/20/21 20:52 23:52 03:51 WBC RBC Hgb 9.0 L Hct 27.1 L MCV MCH MCHC RDW Std Deviation RDW Coeff of Melba Plt Count MPV Immature Gran % (Auto) Neut % (Auto) Lymph % (Auto) [place] % (Auto) Eos % (Auto) Baso % (Auto) Neut # (Auto) Lymph # (Auto) [place] # (Auto) Eos # (Auto) Baso # (Auto) Immature Gran # (Auto) Absolute Nucleated RBC Nucleated RBC % (auto) Polychromasia Pappenheimer Bodies Ovalocytes Echinocytes PT INR APTT PTT Ratio VBG pH Sodium Potassium Chloride Carbon Dioxide Anion Gap BUN Creatinine Est Cr Clr Drug Dosing Est GFR ( Amer) Est GFR (Non-Af Amer) BUN/Creatinine Ratio Glucose POC Glucose 133 H 116 H Lactate Calcium Phosphorus Magnesium Random Vancomycin Methotrexate RPR T.pallidum Ab (FTA-ABS) 02/20/21 02/20/21 02/20/21 04:22 04:22 04:22 WBC RBC Hgb Hct MCV MCH MCHC RDW Std Deviation RDW Coeff of Melba Plt Count MPV Immature Gran % (Auto) Neut % (Auto) Lymph % (Auto) [place] % (Auto) Eos % (Auto) Baso % (Auto) Neut # (Auto) Lymph # (Auto) [place] # (Auto) Eos # (Auto) Baso # (Auto) Immature Gran # (Auto) Absolute Nucleated RBC Nucleated RBC % (auto) Polychromasia Pappenheimer Bodies Ovalocytes Echinocytes PT 12.3 H INR 1.2 H APTT 25.5 PTT Ratio 1.0 VBG pH 7.31 L Sodium 146 H Potassium 3.9 Chloride 116 H Carbon Dioxide 28 Anion Gap 2.0 L BUN 25 H Creatinine 1.04 Est Cr Clr Drug Dosing 83.4 Est GFR ( Amer) 80.5 Est GFR (Non-Af Amer) 69.4 BUN/Creatinine Ratio 24.3 H Glucose 133 H POC Glucose Lactate Calcium 6.9 L Phosphorus 2.1 L Magnesium 2.1 Random Vancomycin Methotrexate RPR T.pallidum Ab (FTA-ABS) 02/20/21 02/20/21 04:22 08:22 WBC 21.38 H RBC 2.35 L Hgb 7.8 L Hct 23.3 L MCV 99.1 MCH 33.2 MCHC 33.5 RDW Std Deviation 59.4 H RDW Coeff of Melba 16.7 H Plt Count 156 MPV 10.0 Immature Gran % (Auto) 3.1 Neut % (Auto) 88.0 Lymph % (Auto) 3.8 [place] % (Auto) 5.1 Eos % (Auto) 0.0 Baso % (Auto) 0.0 Neut # (Auto) 18.82 H Lymph # (Auto) 0.81 L [place] # (Auto) 1.08 H Eos # (Auto) 0.00 Baso # (Auto) 0.01 Immature Gran # (Auto) 0.66 H Absolute Nucleated RBC 0.58 H Nucleated RBC % (auto) 2.7 Polychromasia 1+ Pappenheimer Bodies 1+ Ovalocytes Echinocytes PT INR APTT PTT Ratio VBG pH Sodium Potassium Chloride Carbon Dioxide Anion Gap BUN Creatinine Est Cr Clr Drug Dosing Est GFR ( Amer) Est GFR (Non-Af Amer) BUN/Creatinine Ratio Glucose POC Glucose 110 H Lactate Calcium Phosphorus Magnesium Random Vancomycin Methotrexate RPR T.pallidum Ab (FTA-ABS) Microbiology 02/19/21 08:17 Blood Aerobic Blood Culture - Preliminary No growth in Aerobic bottle after 24 hours. 02/19/21 08:17 Blood Anaerobic Blood Culture - Preliminary No growth in Anaerobic bottle after 24 hours. 02/19/21 08:28 Blood Aerobic Blood Culture - Preliminary No growth in Aerobic bottle after 24 hours. 02/19/21 08:28 Blood Anaerobic Blood Culture - Preliminary No growth in Anaerobic bottle after 24 hours. 02/17/21 16:24 Blood Aerobic Blood Culture - Preliminary No growth in Aerobic bottle after 48 hours. 02/17/21 16:24 Blood Anaerobic Blood Culture - Preliminary No growth in Anaerobic bottle after 48 hours. 02/17/21 16:24 Blood Aerobic Blood Culture - Preliminary No growth in Aerobic bottle after 48 hours. 02/17/21 16:24 Blood Anaerobic Blood Culture - Final 02/17/21 12:32 Blood Aerobic Blood Culture - Preliminary No growth in Aerobic bottle after 48 hours. 02/17/21 12:32 Blood Anaerobic Blood Culture - Preliminary No growth in Anaerobic bottle after 48 hours. 02/17/21 11:51 Blood Aerobic Blood Culture - Final Coag neg staph not lugdunensis 02/17/21 11:51 Blood Anaerobic Blood Culture - Final 02/17/21 20:21 Urine,Indwelling Cath Urine Culture - Final No growth - less than 1,000 colonies/mL. Medications Administered Current Inpatient Medications Acetaminophen (Acetaminophen 325 Mg Tab) 650 mg PO Q4H PRN PRN Reason: Pain or Fever Stop: 03/19/21 16:05 Albuterol (Albut/Ipratrop 3mg/0.5mg Neb 3 Ml Vial) 3 ml NEB QIDR PRN PRN Reason: Shortness Of Breath Or Wheezing Stop: 03/19/21 16:05 Aripiprazole ([facility] 5 Mg Tab) [facility] [place] Stop: 03/20/21 08:59 Last Admin: 02/18/21 08:02 Dose: Not Given Documented by: Bupropion HCl (Bupropion Sr 100 Mg Tabcr) [facility] [place] Stop: 03/20/21 08:59 Last Admin: 02/18/21 08:02 Dose: Not Given Documented by: Cyanocobalamin (Cyanocobalamin 500 Mcg Tablet (Vitamin B-12)) 1,[facility]cg [facility] [place] Stop: 03/20/21 08:59 Last Admin: 02/18/21 08:02 Dose: Not Given Documented by: Fentanyl Citrate (Fentanyl Bolus From Bag) 50 mcg IV Q60M PRN PRN Reason: Pain or Agitation Stop: 03/04/21 15:33 Last Admin: 02/19/21 09:30 Dose: 50 mcg Documented by: Folic Acid (Folic Acid 1 Mg Tab) 1 mg PO QAM [facility] Stop: 03/20/21 08:59 Last Admin: 02/18/21 08:02 Dose: Not Given Documented by: Pantoprazole Sodium 40 mg/ (Dextrose) 100 mls @ 20 mls/hr IV Q5H [facility] Stop: 03/20/21 03:29 Last Admin: 02/20/21 08:35 Dose: 8 mg/hr, 20 mls/hr Documented by: Folic Acid 1 mg/ Syringe 10 mls @ 5 mls[facility] [place] Stop: 03/20/21 08:59 Last Admin: 02/20/21 08:06 Dose: 5 mls/min Documented by: Ceftriaxone Sodium 2,000 mg/ (Dextrose) 70 mls @ 140 mls/hr IV Q12H [facility] Stop: 02/28/21 10:59 Last Infusion: 02/19/21 23:23 Dose: Infused Documented by: Propofol (Diprivan) 1,000 mg in 100 mls @ 7.146 mls/hr IV .Q14H [facility]; Protocol Stop: 02/21/21 15:44 Last Admin: 02/20/21 08:35 Dose: Not Given Documented by: Fentanyl Citrate (Fentanyl Drip) 1,250 mcg in 250 mls @ 6 mls/hr IV .[id number] [facility]; Protocol Stop: 03/04/21 15:44 Last Admin: 02/20/21 08:03 Dose: Not Given Documented by: Methylprednisolone 40 mg/ (Syringe) 0.64 mls @ 1.5 mls/min IV Q24H [facility] Stop: 03/22/21 05:59 Last Admin: 02/20/21 05:42 Dose: 1.5 mls/min Documented by: Ampicillin Sodium 2,000 mg/ (Sodium Chloride) 100 mls @ 200 mls/hr IV Q4 [facility]; Protocol Stop: 03/01/21 11:59 Last Infusion: 02/20/21 08:36 Dose: Infused Documented by: Vancomycin HCl 1,250 mg/ (Sodium Chloride) 275 mls @ 200 mls/hr IV Q12H [facility] Stop: 02/24/21 23:59 Last Infusion: 02/20/21 03:44 Dose: Infused Documented by: Dextrose (D5w) 1,000 mls @ 40 mls/hr IV .Q24H [facility] Stop: 03/22/21 07:44 Last Admin: 02/20/21 08:21 Dose: 40 mls/hr Documented by: Insulin Aspart (Insulin Aspart 100 Units/Ml 3 Ml Pen) 0 units SC Q4 [facility] Stop: 03/20/21 15:59 Last Admin: 02/20/21 08:33 Dose: Not Given Documented by: Metoprolol Tartrate (Metoprolol Tartrate 25 Mg Tab) 25 mg PO BID [facility] Stop: 03/19/21 20:59 Last Admin: 02/18/21 08:02 Dose: Not Given Documented by: Metoprolol Tartrate (Metoprolol Tartrate 1 Mg/Ml Vial) 2.5 mg IV Q6 [facility] Stop: 03/20/21 05:59 Last Admin: 02/20/21 05:42 Dose: Not Given Documented by: Miscellaneous Information (Vancomycin Consult Active) 1 ea N/A UD PRN PRN Reason: Consult Stop: 03/19/21 16:05 Ondansetron HCl (Ondansetron Inj 2 Mg/Ml 2 Ml Vial) 4 mg IV Q6H PRN PRN Reason: Nausea Stop: 03/19/21 16:05 Potassium Chloride (Potassium Chloride Crtab 20 Meq Tabcr) 20 meq PO QAM [facility] Stop: 03/20/21 08:59 Last Admin: 02/18/21 08:02 Dose: Not Given Documented by: Propofol (Propofol Bolus From Bag) 20 mg IV Q5M PRN PRN Reason: Sedation Stop: 02/21/21 15:33 Last Admin: 02/19/21 10:00 Dose: 20 mg Documented by: Simvastatin (Simvastatin 40 Mg Tab) 40 mg PO QPM [facility] Stop: 03/19/21 20:59 Last Admin: 02/17/21 21:38 Dose: Not Given Documented by: Spironolactone (Spironolactone 25 Mg Tab) 50 mg PO BID17 [facility] Stop: 03/19/21 16:59 Last Admin: 02/17/21 18:13 Dose: Not Given Documented by: Tamsulosin HCl (Tamsulosin Hcl 0.4 Mg Cap) 0.4 mg PO QAM [facility] Stop: 03/20/21 08:59 Last Admin: 02/18/21 08:02 Dose: Not Given Documented by: Venlafaxine HCl (Venlafaxine Hcl Xr 75 Mg Capxr) 225 mg PO QAM [facility] Stop: 03/20/21 08:59 Last Admin: 02/18/21 08:03 Dose: Not Given Documented by: Vitamin D (Cholecalciferol 400 Units 10 Mcg Tab) 800 units PO QAM [facility] Stop: 03/20/21 08:59 Last Admin: 02/18/21 08:02 Dose: Not Given Documented by: PG Care Time/CCT Total # of Minutes Spent Total Time Spent with Patient: Total time spent is greater than 50% in coordination of care (as documented) at patient's floor/unit and/or counseling patient: Coding Level of Care Code 11315 Subseq Hosp Care Lvl 2 Diagnoses Sepsis A41.9 Sepsis acute organ dysfunction status: unspecified Sepsis type: sepsis due to unspecified organism Acute blood loss anemia D62 Acute respiratory failure with hypoxia J96.01 KAYKAY (acute kidney injury) N17.9 Acute metabolic encephalopathy G93.41 Chronic obstructive pulmonary disease J44.9 COPD type: unspecified COPD Hypertension I10 Temporal arteritis M31.6 Dyslipidemia E78.5 (1) Sepsis Sepsis acute organ dysfunction status: unspecified Sepsis type: sepsis due to unspecified organism Qualified Code(s): A41.9 - Sepsis, unspecified organism (2) Chronic obstructive pulmonary disease COPD type: unspecified COPD Qualified Code(s): J44.9 - Chronic obstructive pulmonary disease, unspecified
[2021-02-20] MEDS ORDERED: POTASSIUM PHOS 3 MMOL/1 ML INFUSION IV STA (09:44)
[2021-02-20] MEDS ORDERED: POTASSIUM PHOSPHATE 15 MMOL in SODIUM CHLORIDE 0.9% 250 ML IV ONE (11:00)
[2021-02-20 11:22] LABS: Hematocrit (blood only) 24.8 % (42-52); Hemoglobin 8.3 g/dL (14.0-18.0); Mean Corpuscular Hemoglobin 33.3 pg (25-34); Mean Corpuscular Hgb Conc 33.5 g/dL (32-36); Mean Corpuscular Volume 99.6 fL (80-100); Mean Platelet Volume 10.3 fL (7.4-10.4); Nucleated RBC # (auto) 0.74 K/uL (0-0); Nucleated RBC % (auto) 3.1 %; Platelet Count 172 K/uL (130-400); RDW Coefficient of Variation 16.6 % (11.5-14.5); RDW Standard Deviation 58.4 fL (36.4-46.3); Red Blood Count 2.49 M/uL (4.7-6.1); White Blood Count 23.59 K/uL (4.8-10.8)
[2021-02-20 11:41] LABS: ANC (manual) 22.98 K/uL (1.4-6.5); Monocytes # (manual) 0.21 K/uL (0.11-0.59); Monocytes % (manual) 0.9 %; Myelocytes % (manual) 1.7 %; Neutrophils # (manual) 22.98 K/uL (1.4-6.5); Neutrophils % (manual) 97.4 %; Polychromasia 1+
[2021-02-20] MEDS ORDERED: PEPTAMEN INTENSE VHP 1.0 CAL 1,000 ML BAG OG SCH (13:00)
[2021-02-20] MEDS ORDERED: VANCOMYCIN TROUGH ONE (13:30)
--- NOTE | 2021-02-20 14:39 | Critical Care Progress Note ---
Date of Service February 20, 2021 Assessment & Plan (1) Acute metabolic encephalopathy: 75-year-old male past medical history of temporal arthritis on methotrexate 15 mg q. Wednesday and prednisone on a daily basis, hypertension, depression, Paroxysmal A. fib on apixaban, COPD on 3 L nasal cannula was admitted to the hospital as he was found to be on his lawn. initial blood pressure was 80/60 w ith a pulse of 150 Initial lactate was 14. Patient was given 2.5 lactate went down to 4.8. CT chest 02/17/2021 personally reviewed: Increased interstitial thickening appreciated bilaterally more in the apical lobe peripherally. No clear infiltrate identified Old granulomatous No mediastinal adenopathy EKG 02/17/2021: No acute events undefined, right axis deviation, QTC 463 Patient has seen the patient in the ED 1 which is chronic and was also appreciated in August ABG 02/17/2021: 7.32/33/160 on 50% -- VDRF As a measure for airway protection secondary for altered mental status Continue with ventilatory support Keep RASS -1 Daily sedation holidays and SBT's Chlorhexidine mouthwash --Metabolic encephalopathy Etiology is unclear right now CT head 02/17/2021 negative, patient moving all extremities on command TSH within normal limit, calcium within normal limit RPR negative UDS positive for opiates, ecstasy(likely from venlafaxine) as well as marijuana(patient smokes marijuana) Continue with empiric antibiotics Follow-up septic work-up ESR less than 1, CRP 1.26 ? seziure with a blank stare. Got one dose of Keppra 02/17/2021. EEG negative for seizures --Acute blood loss anemia Patient is on apixaban at home, s/p Kcentra 02/18/2021 Last dose was 02/17/21 S/p 2 units PRBC 02/19/2021 S/p EGD 02/18/2021 but did not show any active bleed Patient also has small retroperitoneal bleed on the left side Continue with Protonix drip Random cortisol 66.5 COVID-19 PCR negative Procalcitonin negative --S/p HAGMA Metabolic acidosis likely from lactic acidosis Patient having melanotic stool could be the reason for alkalosis Positive urinary gap Monitor Serum osmolality 338, calculated osmolality 324, osmolar gap 14 which is very mi nimally elevated. Salicylate and acetaminophen level negative Patient also had elevated beta hydroxybutyrate which could be from starvation Patient got 2 Amps bicarb so far. Repeat CT abdomen pelvis 02/18/2021 did not show any signs of bowel ischemia, there was small retroperitoneal bleed/edema left lower quadrant. Not significant enough to give the lactic acidosis -- KAYKAY Likely secondary to dehydration, prerenal component Improving Fe Na: 0.94%, prerenal Monitor BUN/creatinine Avoid nephrotoxic medications Strict ins and outs --COPD Not in exacerbation We will continue with steroids for the time being and gradually taper it off --Elevated troponin Likely type II CO Trend troponins --A. fib Continue with IV metoprolol --History of temporal arthritis Biopsy-proven On methotrexate 15 mg q. Wednesday as well as prednisone Follow methotrexate level --Anxiety with depression On bupropion, venlafaxine and aripiprazole as an outpatient On hold currently --History of hypertension Hold spironolactone --BPH Continue with tamsulosin --Hypernatremia with hyperchloremia Likely from IV fluids Free water flushes given to the patient. --Prophylaxis VTE: IPC's. Apixaban on hold GI: Protonix drip Lines: Peripheral Diet: N.p.o. Plan: In/out: +3.12, urine output 1376 +14 L since coming to the hospital ABG 02/20/21: 7.36// on 30% Patient was given Keppra as well as Ativan for possible seizures. The shaking episode with the patient has is not seizures and as he follows command while he is having the seizures Patient has started to make urine. We will give 20 mg of Lasix DC Rocephin continue with vancomycin and ampicillin for meningitis. Unable to get lumbar puncture unfortunately. Drop in hemoglobin today a little bit. Repeat H&H. Start feeding today. Change IV fluids to D5 water at 40 mL an hour. Phosphatemia being replaced Patient's son Jacky [phone] I have personally spent 37 minutes of critical care time in the direct management of this patient. This is a life/limb threatening event. This includes time spent evaluating patient, direct bedside care, chart review, placing orders, interpretation of diagnostic studies, discussion with consultants, patient, and family members, as well as other required patient management activities. This time is exclusive of all separately billable procedures, and teaching time and separate from and in addition to any other critical care service time. Please note the above document was generated using voice recognition software. It may contain grammatical, syntax or spelling errors. (2) Anxiety and depression: (3) Paroxysmal atrial fibrillation: (4) Chronic obstructive pulmonary disease: (5) Chronic respiratory failure with hypoxia: (6) Temporal arteritis: (7) KAYKAY (acute kidney injury): Admission and Anticipated Discharge Date Admission Date: February 17, 2021 Subjective Patient seen and examined at bedside. No acute distress, no adverse events overnight. Patient was on propofol 20, fentanyl 50 the time of examination RASS -2 Was breathing with vent. Has been afebrile. Unfortunately yesterday radiology was not able to get LP. Review of Systems Review of Systems: Unobtainable due to endotracheal tube Physical Exam Physical Exam: Constitutional: No acute distress HEENT: EOMI, PERRLA, positive ETT Respiratory system: Decreased air entry bilaterally, no wheeze, no rhonchi, positive crackles bilateral lower lobes CVS: S1-S2 positive, no murmurs or gallops Abdomen: Soft, obese, nontender, nondistended, no rebound, decreased bowel sounds Extremities: +2 pulses bilaterally radialis/ dorsalis pedis, no cyanosis, +2 edema bilateral lower extremity Neuro: RASS -2, breathing with vent, positive corneal, positive gag Psych: Unable to assess G/U: Positive [place] Skin: no rashes, warm and dry Lymphatic: no cervical or axillary lymphadenopathy Results & Data Results & Data ([facility]) Vital Signs (Past 12 Hours) Vital Signs Temp Pulse Resp BP Pulse Ox 02/20/21 13:10 68 155/57 H 96 02/20/21 12:10 72 99/52 L 99 02/20/21 11:56 101 H 147/59 H 02/20/21 10:35 69 10 L 97 02/20/21 10:15 36.3 C L 02/20/21 10:10 73 139/53 L 97 02/20/21 09:10 88 158/61 H 96 02/20/21 08:00 72 02/20/21 07:10 75 21 132/52 L 98 02/20/21 06:10 67 15 139/51 L 98 02/20/21 05:42 60 02/20/21 05:40 69 16 124/50 L 98 02/20/21 05:10 80 16 146/53 H 98 02/20/21 04:40 72 16 133/49 L 98 02/20/21 04:10 36.9 C 60 16 125/47 L 98 02/20/21 03:40 67 15 143/46 H 96 02/20/21 03:14 63 15 95 02/20/21 03:10 59 L 15 124/48 L 96 02/20/21 02:40 67 15 138/48 L 97 02/20/21 10:54 02/20/21 04:22 Coding Level of Care Code Critical Care 1st 30-74 mins Diagnoses Acute metabolic encephalopathy G93.41 Anxiety and depression F41.9; F32.9 Paroxysmal atrial fibrillation I48.0 Chronic obstructive pulmonary disease J44.9 COPD type: unspecified COPD Chronic respiratory failure with hypoxia J96.11 Temporal arteritis M31.6 KAYKAY (acute kidney injury) N17.9 Time Spent (min) 37 (1) Chronic obstructive pulmonary disease COPD type: unspecified COPD Qualified Code(s): J44.9 - Chronic obstructive pulmonary disease, unspecified
--- NOTE | 2021-02-20 14:47 | Pharmacy Report ---
ED Pharmacist Culture FollowUP - Culture Follow Up Note Date of Service: February 20, 2021 Notes:: Assessment * 75 year old M receiving vancomycin, ampicillin for treatment of possible meningitis. Ceftriaxone was discontinued today. Discussed decreased coverage at ICU rounds - OK to continue ampicillin and vancomycin * Pertinent microbiologic data includes: 08/19 initial blood culture growing CoNS. Likely contaminant. * Renal function is rapidly changing Vancomycin * AUC/DEE DEE is the preferred PK/PD target for vancomycin * AUC guided dosing is effective and associated with decreased risk of nephrotoxicity compared to traditional trough targets * Trough obtained early today due to changing renal function - level of 16.1 mcg/mL is therapeutic. Anticipate further accumulation, but not likely supratherapeutic levels * Predicted trough level of 18.4 mcg/mL is predicted to achieve target AUC/DEE DEE of 400-600 mg/L.hr and may be associated with a 15 % risk of nephrotoxicity * Trough or random level ordered for:order as clinically indicated, monitor with changing renal function Plan * Continue vancomycin 1250 mg IV q12h
[2021-02-20] MEDS: PROPOFOL BOLUS FROM BAG IV PRN (15:04)
[2021-02-20 16:42] LABS: iSTAT Arterial Blood Gas pCO2 42 mmHg (35-46); iSTAT Arterial Blood Gas pH 7.37 (7.35-7.45); iSTAT Arterial Blood Gas pO2 97 mmHg (80-95); iSTAT Hematocrit 20 % (42-52); iSTAT Hemoglobin 6.8 g/dl (14.0-18.0); iSTAT Potassium 3.7 mmol/L (3.3-5.0); iSTAT Sodium 145 mmol/L (135-144)
[2021-02-20 16:43] LABS: Patient Temperature 36.9; iSTAT Art Bld Gas pH Corrected 7.367 (7.35-7.45); iSTAT Arterial Blood Gas HCO3 24 meg/L (19-24); iSTAT Carbon Dioxide 25 mmol/L (24-31); iSTAT FiO2 30 %
[2021-02-20 16:44] LABS: iSTAT Art Bld Gas pCO2 Correct 42 mmHg (35-46); iSTAT Arterial Blood Gas pO2 C 97; iSTAT Sample Type Arterial; iSTAT Site L Radial
[2021-02-20 16:45] LABS: iSTAT SpO2 42
--- NOTE | 2021-02-20 22:22 | Hospitalist Progress Note ---
Date of Service February 20, 2021 Assessment & Plan (1) Sepsis: present on arrival, unclear etiology at this time lactic acid has improved with aggressive fluids, not requiring pressors, not checking LA further broad spectrum antibiotics - stop Rocephin, continue Vancomycin and Ampicillin attempted LP twice 02/19 but no success, covering for meningitis as there is no obvious UTI or pneumonia or abdominal source of infection WBC elevated at 23k follow up on final blood and urine cultures - no growth (2) Acute blood loss anemia: Hemoglobin dropped to 6.1 on 02/18, transfused two units, Hb is 7.8 and 8.3 on repeat EGD with normal esophagus, stomach, duodenum has evidence of bleed along psoas muscle, spontaneous retroperitoneal bleed is likely source of blood loss hold anticoagulation (3) Acute respiratory failure with hypoxia: was intubated electively to protect airway, plan for EGD continue ventilator today, stable on only PEEP 6 and FiO2 30% sedated with Fentanyl and Propofol ICU managing, perhaps SBT tomorrow and see if he can be extubated (4) KAYKAY (acute kidney injury): Cr was 1.8, down to 1.6 and now 1.04, making urine via thorne K, Phos and Mag stable utilizing Lasix IV to mobilize fluids as he was positive 14 liters, responding well monitor closely (5) Acute metabolic encephalopathy: due to sepsis, lactic acidosis (LA is improving) currently sedated with Proprofol and Fentanyl (6) Chronic obstructive pulmonary disease: BiPAP initially, then down to room air but then intubated for EGD Duo nebs PRN (7) Hypertension: resume Lasix IV, Lopressor IV hold Eliquis cancel cardiology consult for time being echo with EF of 70%, hyperdynamic LV in setting of sepsis, acute blood loss anemia (8) Temporal arteritis: Per previous documentation, patient was on 8 mg of prednisone with methotrexate Okay to hold prednisone as patient will be on Solu-Medrol resume Prednisone once he can take PO (9) Dyslipidemia: Patient is on simvastatin 40mg at home Admission and Anticipated Discharge Date Admission Date: February 17, 2021 Subjective patient still intubated reviewed labs, discussed in ICU team d/c Rocephin, continue Vanc and Ampicillin had shaking episode, normal EEG, not considered to be seizure, no further Keppra ICU has been updated patient's son Review of Systems Review of Systems: Unobtainable due to endotracheal tube Physical Exam Constitutional: well developed, + ill appearing, + frail appearing and + mechanically ventilated Neck: trachea midline, no thyromegaly Respiratory: normal respiratory effort, lungs clear to auscultation (ventilated) Auscultation: lungs clear to auscultation bilaterally Cardiovascular: Rate/Rhythm: regular rate and regular rhythm Heart Sounds: normal S1 and normal S2; no murmur Vessels: no JVD Extremities: normal capillary refill; no edema Gastrointestinal (Abdomen): normal bowel sounds, soft, nontender, no hepatosplenomegaly Skin: no rashes, warm and dry Neurologic: CN's II-XI intact bilaterally and + obtunded; no focal motor deficits Psychiatric: Orientation: + not alert Results & Data Results & Data ([facility]) Vital Signs (Past 12 Hours) Vital Signs Temp Pulse Resp BP Pulse Ox Pulse Ox 02/20/21 21:10 89 15 165/64 H 96 02/20/21 20:10 36.9 C 91 H 15 148/65 H 96 02/20/21 19:10 65 15 133/54 L 96 02/20/21 18:58 71 18 98 02/20/21 18:08 65 124/51 L 02/20/21 18:05 72 124/51 L 97 02/20/21 17:10 73 117/96 99 02/20/21 16:39 95 02/20/21 16:21 36.7 C 02/20/21 16:10 61 128/49 L 96 02/20/21 16:00 65 02/20/21 15:10 69 133/53 L 97 02/20/21 14:59 93 H 24 99 02/20/21 14:11 83 146/62 H 99 02/20/21 13:10 68 155/57 H 96 02/20/21 12:10 72 99/52 L 99 02/20/21 11:56 101 H 147/59 H 02/20/21 10:35 69 10 L 97 Laboratory Results Laboratory Results - last 24 hr 02/19/21 02/19/21 02/20/21 13:14 23:52 03:51 WBC RBC Hgb POC Hgb Hct POC Hct MCV MCH MCHC RDW Std Deviation RDW Coeff of Melba Plt Count MPV Immature Gran % (Auto) Neut % (Auto) Lymph % (Auto) Frontier % (Auto) Eos % (Auto) Baso % (Auto) Neut # (Auto) Lymph # (Auto) Frontier # (Auto) Eos # (Auto) Baso # (Auto) Immature Gran # (Auto) Absolute Nucleated RBC Nucleated RBC % (auto) Neutrophils % (Manual) Lymphocytes % (Manual) Monocytes % (Manual) Myelocytes % (Man) Neutrophils # (Manual) Total Absolute Neuts Total Abs Lymphocytes Monocytes # (Manual) Myelocytes # (Manual) Polychromasia Pappenheimer Bodies PT INR APTT PTT Ratio Specimen Type Sample Site Patient Temperature POC pH POC pCO2 POC pO2 POC HCO3 POC Total CO2 POC Base Excess O2 Sat Pulse Oximetry ABG pH (Temp Correct) ABG pCO2 (Temp Corrct POC ABG pO2 at Pt Temp VBG pH O2 Delivery Device POC O2 Rate Vent Mode POC FiO2 Tidal Volume End Tidal CO2 PEEP POC Sodium Sodium POC Potassium Potassium Chloride Carbon Dioxide Anion Gap BUN Creatinine Est Cr Clr Drug Dosing Est GFR ( Amer) Est GFR (Non-Af Amer) BUN/Creatinine Ratio Glucose POC Glucose 133 H 116 H Calcium Phosphorus Magnesium Vancomycin Trough RPR Nonreactive 02/20/21 02/20/21 02/20/21 04:22 04:22 04:22 WBC RBC Hgb POC Hgb Hct POC Hct MCV MCH MCHC RDW Std Deviation RDW Coeff of Melba Plt Count MPV Immature Gran % (Auto) Neut % (Auto) Lymph % (Auto) Frontier % (Auto) Eos % (Auto) Baso % (Auto) Neut # (Auto) Lymph # (Auto) Frontier # (Auto) Eos # (Auto) Baso # (Auto) Immature Gran # (Auto) Absolute Nucleated RBC Nucleated RBC % (auto) Neutrophils % (Manual) Lymphocytes % (Manual) Monocytes % (Manual) Myelocytes % (Man) Neutrophils # (Manual) Total Absolute Neuts Total Abs Lymphocytes Monocytes # (Manual) Myelocytes # (Manual) Polychromasia Pappenheimer Bodies PT 12.3 H INR 1.2 H APTT 25.5 PTT Ratio 1.0 Specimen Type Sample Site Patient Temperature POC pH POC pCO2 POC pO2 POC HCO3 POC Total CO2 POC Base Excess O2 Sat Pulse Oximetry ABG pH (Temp Correct) ABG pCO2 (Temp Corrct POC ABG pO2 at Pt Temp VBG pH 7.31 L O2 Delivery Device POC O2 Rate Vent Mode POC FiO2 Tidal Volume End Tidal CO2 PEEP POC Sodium Sodium 146 H POC Potassium Potassium 3.9 Chloride 116 H Carbon Dioxide 28 Anion Gap 2.0 L BUN 25 H Creatinine 1.04 Est Cr Clr Drug Dosing 83.4 Est GFR ( Amer) 80.5 Est GFR (Non-Af Amer) 69.4 BUN/Creatinine Ratio 24.3 H Glucose 133 H POC Glucose Calcium 6.9 L Phosphorus 2.1 L Magnesium 2.1 Vancomycin Trough RPR 02/20/21 02/20/21 02/20/21 04:22 06:01 08:22 WBC 21.38 H RBC 2.35 L Hgb 7.8 L POC Hgb 6.8 L* Hct 23.3 L POC Hct 20 L* MCV 99.1 MCH 33.2 MCHC 33.5 RDW Std Deviation 59.4 H RDW Coeff of Melba 16.7 H Plt Count 156 MPV 10.0 Immature Gran % (Auto) 3.1 Neut % (Auto) 88.0 Lymph % (Auto) 3.8 Frontier % (Auto) 5.1 Eos % (Auto) 0.0 Baso % (Auto) 0.0 Neut # (Auto) 18.82 H Lymph # (Auto) 0.81 L Frontier # (Auto) 1.08 H Eos # (Auto) 0.00 Baso # (Auto) 0.01 Immature Gran # (Auto) 0.66 H Absolute Nucleated RBC 0.58 H Nucleated RBC % (auto) 2.7 Neutrophils % (Manual) Lymphocytes % (Manual) Monocytes % (Manual) Myelocytes % (Man) Neutrophils # (Manual) Total Absolute Neuts Total Abs Lymphocytes Monocytes # (Manual) Myelocytes # (Manual) Polychromasia 1+ Pappenheimer Bodies 1+ PT INR APTT PTT Ratio Specimen Type Arterial Sample Site L Radial Patient Temperature 36.9 POC pH 7.37 POC pCO2 42 POC pO2 97 H POC HCO3 24 POC Total CO2 25 POC Base Excess -1.0 O2 Sat Pulse Oximetry 42 ABG pH (Temp Correct) 7.367 ABG pCO2 (Temp Corrct 42 POC ABG pO2 at Pt Temp 97 VBG pH O2 Delivery Device Ventilator POC O2 Rate 15 Vent Mode AC POC FiO2 30 Tidal Volume 430 End Tidal CO2 44 PEEP 6 POC Sodium 145 H Sodium POC Potassium 3.7 Potassium Chloride Carbon Dioxide Anion Gap BUN Creatinine Est Cr Clr Drug Dosing Est GFR ( Amer) Est GFR (Non-Af Amer) BUN/Creatinine Ratio Glucose POC Glucose 110 H Calcium Phosphorus Magnesium Vancomycin Trough RPR 02/20/21 02/20/21 02/20/21 10:54 10:58 13:21 WBC 23.59 H RBC 2.49 L Hgb 8.3 L POC Hgb Hct 24.8 L POC Hct MCV 99.6 MCH 33.3 MCHC 33.5 RDW Std Deviation 58.4 H RDW Coeff of Melba 16.6 H Plt Count 172 MPV 10.3 Immature Gran % (Auto) Neut % (Auto) Lymph % (Auto) Frontier % (Auto) Eos % (Auto) Baso % (Auto) Neut # (Auto) Lymph # (Auto) Frontier # (Auto) Eos # (Auto) Baso # (Auto) Immature Gran # (Auto) Absolute Nucleated RBC 0.74 H Nucleated RBC % (auto) 3.1 Neutrophils % (Manual) 97.4 Lymphocytes % (Manual) 0.0 Monocytes % (Manual) 0.9 Myelocytes % (Man) 1.7 Neutrophils # (Manual) 22.98 H Total Absolute Neuts 22.98 H Total Abs Lymphocytes 0.00 L Monocytes # (Manual) 0.21 Myelocytes # (Manual) 0.40 H Polychromasia 1+ Pappenheimer Bodies PT INR APTT PTT Ratio Specimen Type Sample Site Patient Temperature POC pH POC pCO2 POC pO2 POC HCO3 POC Total CO2 POC Base Excess O2 Sat Pulse Oximetry ABG pH (Temp Correct) ABG pCO2 (Temp Corrct POC ABG pO2 at Pt Temp VBG pH O2 Delivery Device POC O2 Rate Vent Mode POC FiO2 Tidal Volume End Tidal CO2 PEEP POC Sodium Sodium POC Potassium Potassium Chloride Carbon Dioxide Anion Gap BUN Creatinine Est Cr Clr Drug Dosing Est GFR ( Amer) Est GFR (Non-Af Amer) BUN/Creatinine Ratio Glucose POC Glucose 145 H Calcium Phosphorus Magnesium Vancomycin Trough 16.1 RPR 02/20/21 02/20/21 16:35 20:13 WBC RBC Hgb POC Hgb Hct POC Hct MCV MCH MCHC RDW Std Deviation RDW Coeff of Melba Plt Count MPV Immature Gran % (Auto) Neut % (Auto) Lymph % (Auto) Frontier % (Auto) Eos % (Auto) Baso % (Auto) Neut # (Auto) Lymph # (Auto) Frontier # (Auto) Eos # (Auto) Baso # (Auto) Immature Gran # (Auto) Absolute Nucleated RBC Nucleated RBC % (auto) Neutrophils % (Manual) Lymphocytes % (Manual) Monocytes % (Manual) Myelocytes % (Man) Neutrophils # (Manual) Total Absolute Neuts Total Abs Lymphocytes Monocytes # (Manual) Myelocytes # (Manual) Polychromasia Pappenheimer Bodies PT INR APTT PTT Ratio Specimen Type Sample Site Patient Temperature POC pH POC pCO2 POC pO2 POC HCO3 POC Total CO2 POC Base Excess O2 Sat Pulse Oximetry ABG pH (Temp Correct) ABG pCO2 (Temp Corrct POC ABG pO2 at Pt Temp VBG pH O2 Delivery Device POC O2 Rate Vent Mode POC FiO2 Tidal Volume End Tidal CO2 PEEP POC Sodium Sodium POC Potassium Potassium Chloride Carbon Dioxide Anion Gap BUN Creatinine Est Cr Clr Drug Dosing Est GFR ( Amer) Est GFR (Non-Af Amer) BUN/Creatinine Ratio Glucose POC Glucose 120 H 118 H Calcium Phosphorus Magnesium Vancomycin Trough RPR Medications Administered Current Inpatient Medications Acetaminophen (Acetaminophen 325 Mg Tab) 650 mg PO Q4H PRN PRN Reason: Pain or Fever Stop: 03/19/21 16:05 Albuterol (Albut/Ipratrop 3mg/0.5mg Neb 3 Ml Vial) 3 ml NEB QIDR PRN PRN Reason: Shortness Of Breath Or Wheezing Stop: 03/19/21 16:05 Aripiprazole (Aripiprazole 5 Mg Tab) 5 mg PO QAM BETH Stop: 03/20/21 08:59 Last Admin: 02/18/21 08:02 Dose: Not Given Documented by: Bupropion HCl (Bupropion Sr 100 Mg Tabcr) 100 mg PO QAM BETH Stop: 03/20/21 08:59 Last Admin: 02/18/21 08:02 Dose: Not Given Documented by: Cyanocobalamin (Cyanocobalamin 500 Mcg Tablet (Vitamin B-12)) 1,000 mcg PO QAM BETH Stop: 03/20/21 08:59 Last Admin: 02/18/21 08:02 Dose: Not Given Documented by: Fentanyl Citrate (Fentanyl Bolus From Bag) 50 mcg IV Q60M PRN PRN Reason: Pain or Agitation Stop: 03/04/21 15:33 Last Admin: 02/19/21 09:30 Dose: 50 mcg Documented by: Folic Acid (Folic Acid 1 Mg Tab) 1 mg PO QAM [facility] Stop: 03/20/21 08:59 Last Admin: 02/18/21 08:02 Dose: Not Given Documented by: Pantoprazole Sodium 40 mg/ (Dextrose) 100 mls @ 20 mls/hr IV Q5H [facility] Stop: 03/20/21 03:29 Last Admin: 02/20/21 19:29 Dose: 8 mg/hr, 20 mls/hr Documented by: Folic Acid 1 mg/ Syringe 10 mls @ 5 mls/min IV QAM [facility] Stop: 03/20/21 08:59 Last Admin: 02/20/21 08:06 Dose: 5 mls/min Documented by: Propofol (Diprivan) 1,000 mg in 100 mls @ 14.292 mls/hr IV .Q7H [facility]; Protocol Stop: 02/21/21 15:44 Last Titration: 02/20/21 20:30 Dose: 20 mcg/kg/min, 14.3 mls/hr Documented by: Fentanyl Citrate (Fentanyl Drip) 1,250 mcg in 250 mls @ 10 mls/hr IV .Q25H [facility]; Protocol Stop: 03/04/21 15:44 Last Titration: 02/20/21 20:30 Dose: 50 mcg/hr, 10 mls/hr Documented by: Methylprednisolone 40 mg/ (Syringe) 0.64 mls @ 1.5 mls/min IV Q24H [facility] Stop: 03/22/21 05:59 Last Admin: 02/20/21 05:42 Dose: 1.5 mls/min Documented by: Ampicillin Sodium 2,000 mg/ (Sodium Chloride) 100 mls @ 200 mls/hr IV Q4 [facility]; Protocol Stop: 03/01/21 11:59 Last Infusion: 02/20/21 20:15 Dose: Infused Documented by: Vancomycin HCl 1,250 mg/ (Sodium Chloride) 275 mls @ 200 mls/hr IV Q12H [facility] Stop: 02/24/21 23:59 Last Infusion: 02/20/21 15:36 Dose: Infused Documented by: Dextrose (D5w) 1,000 mls @ 40 mls/hr IV .Q24H [facility] Stop: 03/22/21 07:44 Last Admin: 02/20/21 08:21 Dose: 40 mls/hr Documented by: Insulin Aspart (Insulin Aspart 100 Units/Ml 3 Ml Pen) 0 units SC Q4 [facility] Stop: 03/20/21 15:59 Last Admin: 02/20/21 20:15 Dose: Not Given Documented by: Metoprolol Tartrate (Metoprolol Tartrate 25 Mg Tab) 25 mg PO BID [facility] Stop: 03/19/21 20:59 Last Admin: 02/18/21 08:02 Dose: Not Given Documented by: Metoprolol Tartrate (Metoprolol Tartrate 1 Mg/Ml Vial) 2.5 mg IV Q6 [facility] Stop: 03/20/21 05:59 Last Admin: 02/20/21 18:08 Dose: Not Given Documented by: Miscellaneous Information (Vancomycin Consult Active) 1 ea N/A UD PRN PRN Reason: Consult Stop: 03/19/21 16:05 Nutritional Formula (Peptamen Intense Vhp 1.0 Aden 1,000 Ml Bag) 1,000 ml OG UD [facility]; Protocol Stop: 03/22/21 12:59 Last Admin: 02/20/21 13:18 Dose: 1,000 ml Documented by: Ondansetron HCl (Ondansetron Inj 2 Mg/Ml 2 Ml Vial) 4 mg IV Q6H PRN PRN Reason: Nausea Stop: 03/19/21 16:05 Potassium Chloride (Potassium Chloride Crtab 20 Meq Tabcr) 20 meq PO QAM [facility] Stop: 03/20/21 08:59 Last Admin: 02/18/21 08:02 Dose: Not Given Documented by: Propofol (Propofol Bolus From Bag) 20 mg IV Q5M PRN PRN Reason: Sedation Stop: 02/21/21 15:33 Last Admin: 02/20/21 15:04 Dose: 20 mg Documented by: Simvastatin (Simvastatin 40 Mg Tab) 40 mg PO QPM [facility] Stop: 03/19/21 20:59 Last Admin: 02/17/21 21:38 Dose: Not Given Documented by: Spironolactone (Spironolactone 25 Mg Tab) 50 mg PO BID17 [facility] Stop: 03/19/21 16:59 Last Admin: 02/17/21 18:13 Dose: Not Given Documented by: Sterile Water (Tube Feeding Water Flush) 100 ml OG Q4 [facility] Stop: 03/22/21 12:59 Last Admin: 02/20/21 20:15 Dose: 100 ml Documented by: Tamsulosin HCl (Tamsulosin Hcl 0.4 Mg Cap) 0.4 mg PO QAM [facility] Stop: 03/20/21 08:59 Last Admin: 02/18/21 08:02 Dose: Not Given Documented by: Venlafaxine HCl (Venlafaxine Hcl Xr 75 Mg Capxr) 225 mg PO QAM [facility] Stop: 03/20/21 08:59 Last Admin: 02/18/21 08:03 Dose: Not Given Documented by: Vitamin D (Cholecalciferol 400 Units 10 Mcg Tab) 800 units PO QAM [facility] Stop: 03/20/21 08:59 Last Admin: 02/18/21 08:02 Dose: Not Given Documented by: PG Care Time/CCT Total # of Minutes Spent Total Time Spent with Patient: Total time spent is greater than 50% in coordination of care (as documented) at patient's floor/unit and/or counseling patient: Coding Level of Care Code 24148 Subseq Hosp Care Lvl 2 Diagnoses Sepsis A41.9 Sepsis acute organ dysfunction status: unspecified Sepsis type: sepsis due to unspecified organism Acute blood loss anemia D62 Acute respiratory failure with hypoxia J96.01 KAYKAY (acute kidney injury) N17.9 Acute metabolic encephalopathy G93.41 Chronic obstructive pulmonary disease J44.9 COPD type: unspecified COPD Hypertension I10 Temporal arteritis M31.6 Dyslipidemia E78.5 (1) Sepsis Sepsis acute organ dysfunction status: unspecified Sepsis type: sepsis due to unspecified organism Qualified Code(s): A41.9 - Sepsis, unspecified organism (2) Chronic obstructive pulmonary disease COPD type: unspecified COPD Qualified Code(s): J44.9 - Chronic obstructive pulmonary disease, unspecified
[2021-02-21] MEDS: INSULIN ASPART 100 UNITS/ML 3 ML PEN SC SCH ×6 (00:01→21:10)
[2021-02-21] MEDS: PANTOprazole 40 MG in DEXTROSE 5% 100 ML IV SCH ×2 (01:31→06:29)
[2021-02-21] MEDS: propofoL 1,000 MG/100 ML VIAL IV SCH ×2 (01:32→07:55)
[2021-02-21] MEDS: VANCOMYCIN HCL 1,250 MG in SODIUM CHLORIDE 0.9% 250 ML IV SCH ×2 (02:07→15:05)
[2021-02-21] MEDS: TUBE FEEDING WATER FLUSH OG SCH ×5 (03:50→21:02)
[2021-02-21] MEDS: AMPICILLIN 2,000 MG in SODIUM CHLOR 0.9% AD-VAN 100 ML IV SCH ×5 (03:50→21:16)
[2021-02-21 04:56] LABS: Basophils # (auto) 0.03 K/uL (0-0.2); Basophils % (auto) 0.2 %; Hemoglobin 7.2 g/dL (14.0-18.0); Immature Granulocytes % (auto) 4.2 %; Lymphocytes # (auto) 0.56 K/uL (1.2-3.4); Mean Corpuscular Hgb Conc 32.7 g/dL (32-36); Mean Corpuscular Volume 100.9 fL (80-100); Mean Platelet Volume 10.9 fL (7.4-10.4); Monocytes # (auto) 0.96 K/uL (0.11-0.59); Monocytes % (auto) 5.1 %; Neutrophils # (auto) 16.53 K/uL (1.4-6.5); Neutrophils % (auto) 87.5 %; Nucleated RBC # (auto) 0.75 K/uL (0-0); Platelet Count 151 K/uL (130-400); RDW Coefficient of Variation 16.7 % (11.5-14.5); RDW Standard Deviation 59.5 fL (36.4-46.3); Red Blood Count 2.18 M/uL (4.7-6.1); White Blood Count 18.88 K/uL (4.8-10.8)
[2021-02-21 05:14] LABS: iSTAT Allen Test Pass; iSTAT Art Bld Gas pCO2 Correct 44 mmHg (35-46); iSTAT Art Bld Gas pH Corrected 7.375 (7.35-7.45); iSTAT Arterial Blood Gas HCO3 26 meg/L (19-24); iSTAT Arterial Blood Gas pCO2 43 mmHg (35-46); iSTAT Arterial Blood Gas pH 7.38 (7.35-7.45); iSTAT Arterial Blood Gas pO2 61 mmHg (80-95); iSTAT Arterial Blood Gas pO2 C 63; iSTAT Carbon Dioxide 27 mmol/L (24-31); iSTAT FiO2 30 %; iSTAT Hematocrit 23 % (42-52); iSTAT Hemoglobin 7.8 g/dl (14.0-18.0); iSTAT Potassium 3.6 mmol/L (3.3-5.0); iSTAT Site L Radial; iSTAT Sodium 144 mmol/L (135-144)
[2021-02-21] MEDS: METOPROLOL TARTRATE 1 MG/ML VIAL IV SCH ×3 (05:14→16:57)
[2021-02-21 05:24] LABS: Basophilic Stippling Occasional; Polychromasia 1+
[2021-02-21 05:44] LABS: BUN Creatinine Ratio 21.8 (10-20); Calcium 6.9 mg/dl (8.5-10.1); Creatinine Clr Calc Pharmacy 92.7 ml/min; Est GFR (African American) 89.8 ml/min; Est GFR (Non-African American) 77.4 ml/min; Magnesium 2.1 mg/dl (1.8-2.4); Phosphorus 2.3 mg/dl (2.5-4.9); Potassium 4.1 mmol/L (3.5-5.1)
[2021-02-21] MEDS: methylPREDNISolone 40 MG in SYRINGE 0 ML IV SCH (06:25)
--- NOTE | 2021-02-21 07:55 | XRay Report ---
SINGLE VIEW CHEST CLINICAL HISTORY: Respiratory failure FINDINGS: 2 AP, portable, upright chest radiographs are compared to study dated 02/20/2021 and correlat ed with chest CT dated 02/17/2021. The examination is degraded by portable technique and patient rotati on. Endotracheal and enteric tubes are unchanged in position. The heart is enlarged. The pulmonary va sculature is noncongested. Emphysema and chronic interstitial thickening is similar to previous. Biba silar opacities are unchanged from previous. No large pleural effusion or pneumothorax is seen. The b johana thorax is grossly intact. Surgical anchors are noted in the left humeral head. IMPRESSION: 1. Stable lines and tubes. 2. Cardiomegaly and emphysema. 3. Bibasilar opacities are unchanged. ACT 112: Negative or not required by law. Electronically signed by: Leroy Wasserman M.D. 02/21/2021 7:54 AM
[2021-02-21] MEDS: fentaNYL DRIP 1,250 MCG/250 ML BAG IV SCH (07:56)
[2021-02-21] MEDS: FOLIC ACID 1 MG in SYRINGE 9.8 ML IV SCH (07:59)
--- NOTE | 2021-02-21 08:44 | Critical Care Progress Note ---
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 Wednesday and prednisone on a daily basis, hypertension, depression, Paroxysmal A. fib on apixaban, COPD on 3 L nasal cannula was admitted to the hospital as he was found to be on his lawn. initial blood pressure was 80/60 w ith a pulse of 150 Initial lactate was 14. Patient was given 2.5 lactate went down to 4.8. CT chest 02/17/2021 personally reviewed: Increased interstitial thickening appreciated bilaterally more in the apical lobe peripherally. No clear infiltrate identified Old granulomatous No mediastinal adenopathy EKG 02/17/2021: No acute events undefined, right axis deviation, QTC 463 Patient has seen the patient in the ED 1 which is chronic and was also appreciated in August ABG 02/17/2021: 7.32/33/160 on 50% -- VDRF As a measure for airway protection secondary for altered mental status Continue with ventilatory support Keep RASS -1 Daily sedation holidays and SBT's Chlorhexidine mouthwash --S/p metabolic encephalopathy Etiology is unclear right now CT head 02/17/2021 negative, patient moving all extremities on command TSH within normal limit, calcium within normal limit RPR negative UDS positive for opiates, ecstasy(likely from venlafaxine) as well as marijuana(patient smokes marijuana) Continue with empiric antibiotics Follow-up septic work-up ESR less than 1, CRP 1.26 ? seziure with a blank stare. Got one dose of Keppra 02/17/2021. EEG negative for seizures --Acute blood loss anemia Patient is on apixaban at home, s/p Kcentra 02/18/2021 Last dose was 02/17/21 S/p 2 units PRBC 02/19/2021 S/p EGD 02/18/2021 but did not show any active bleed Patient also has small retroperitoneal bleed on the left side Continue with Protonix drip Random cortisol 66.5 COVID-19 PCR negative Procalcitonin negative --S/p HAGMA Metabolic acidosis likely from lactic acidosis Patient having melanotic stool could be the reason for alkalosis Positive urinary gap Monitor Serum osmolality 338, calculated osmolality 324, osmolar gap 14 which is very minimally elevated. Salicylate and acetaminophen level negative Patient also had elevated beta hydroxybutyrate which could be from starvation Patient got 2 Amps bicarb so far. Repeat CT abdomen pelvis 02/18/2021 did not show any signs of bowel ischemia, there was small retroperitoneal bleed/edema left lower quadrant. Not significant enough to give the lactic acidosis -- KAYKAY Likely secondary to dehydration, prerenal component Improving Fe Na: 0.94%, prerenal Monitor BUN/creatinine Avoid nephrotoxic medications Strict ins and outs --COPD Not in exacerbation We will continue with steroids for the time being and gradually taper it off --Elevated troponin Likely type II IA Trend troponins --A. fib Continue with IV metoprolol --History of temporal arthritis Biopsy-proven On methotrexate 15 mg q. Wednesday as well as prednisone Follow methotrexate level --Anxiety with depression On bupropion, venlafaxine and aripiprazole as an outpatient On hold currently --History of hypertension Hold spironolactone --BPH Continue with tamsulosin --Prophylaxis VTE: IPC's. Apixaban on hold GI: Protonix drip Lines: Peripheral Diet: N.p.o. Plan: In/out: +195, urine output 2625 Start the patient on Lasix 40 mg on a daily basis We will give extra dose of Lasix tonight if the patient does not negative balance Continue with ampicillin vancomycin for total of 7 days Repeat H&H. Hypophosphatemia being replaced Decrease Solu-Medrol to 20 mg on a daily basis We will change IV Protonix drip to Protonix 40 mg twice daily Patient's son Jacky [phone] I have personally spent 38 minutes of critical care time in the direct management of this patient. This is a life/limb threatening event. This includes time spent evaluating patient, direct bedside care, chart review, placing orders, interpretation of diagnostic studies, discussion with consultants, patient, and family members, as well as other required patient management activities. This time is exclusive of all separately billable procedures, and teaching time and separate from and in addition to any other critical care service time. Please note the above document was generated using voice recognition software. It may contain grammatical, syntax or spelling errors. (2) Anxiety and depression: (3) Paroxysmal atrial fibrillation: (4) Chronic obstructive pulmonary disease: (5) Chronic respiratory failure with hypoxia: (6) Temporal arteritis: (7) KAYKAY (acute kidney injury): Admission and Anticipated Discharge Date Admission Date: February 17, 2021 Subjective Patient seen and examined at bedside. No acute distress, no adverse events overnight. Patient was on pressure support at the time of examination. He was on propofol 10, fentanyl 50 Following commands. Asking to take the tube out. Denies any chest pain, no headache, no chest pain, no belly pain Has been afebrile Review of Systems Review of Systems: All systems reviewed & are unremarkable except as noted in Subjective Physical Exam Physical Exam: Constitutional: No acute distress HEENT: EOMI, PERRLA, positive ETT Respiratory system: Decreased air entry bilaterally, no wheeze, no rhonchi, positive crackles bilateral lower lobes CVS: S1-S2 positive, no murmurs or gallops Abdomen: Soft, obese, nontender, nondistended, no rebound, decreased bowel sounds Extremities: +2 pulses bilaterally radialis/ dorsalis pedis, no cyanosis, +2 edema bilateral lower extremity Neuro: RASS 0, following commands Psych: Unable to assess G/U: Positive [place] Skin: no rashes, warm and dry Lymphatic: no cervical or axillary lymphadenopathy Results & Data Results & Data ([facility]) Vital Signs (Past 12 Hours) Vital Signs Temp Pulse Resp BP Pulse Ox 02/21/21 08:00 99 H 20 95 02/21/21 07:41 37.1 C 02/21/21 07:14 75 13 95 02/21/21 07:10 77 117/49 L 95 02/21/21 06:10 70 15 165/65 H 95 02/21/21 05:14 60 155/59 H 02/21/21 05:10 74 16 155/59 H 93 02/21/21 04:11 36.9 C 90 20 128/79 92 02/21/21 03:34 64 16 97 02/21/21 03:10 60 15 150/46 H 97 02/21/21 02:10 86 16 162/60 H 96 02/21/21 01:10 97 H 15 154/73 H 96 02/21/21 00:11 66 15 157/54 H 92 02/20/21 23:37 73 126/43 L 02/20/21 23:10 36.9 C 67 15 126/43 L 97 02/20/21 23:05 66 17 97 02/20/21 22:10 83 15 176/68 H 94 02/20/21 21:10 89 15 165/64 H 96 02/21/21 04:03 02/21/21 04:03 Coding Level of Care Code Critical Care 1st 30-74 mins Diagnoses Acute metabolic encephalopathy G93.41 Anxiety and depression F41.9; F32.9 Paroxysmal atrial fibrillation I48.0 Chronic obstructive pulmonary disease J44.9 COPD type: unspecified COPD Chronic respiratory failure with hypoxia J96.11 Temporal arteritis M31.6 KAYKAY (acute kidney injury) N17.9 Time Spent (min) 38 (1) Chronic obstructive pulmonary disease COPD type: unspecified COPD Qualified Code(s): J44.9 - Chronic obstructive pulmonary disease, unspecified
[2021-02-21] MEDS ORDERED: methylPREDNISolone 20 MG in SYRINGE 0 ML IV SCH (09:00)
[2021-02-21] MEDS ORDERED: metHOTREXate sodium 2.5 MG TAB PO SCH (09:00)
[2021-02-21] MEDS: FUROSEMIDE 40 MG in SYRINGE 0 ML IV SCH (09:30)
[2021-02-21] MEDS ORDERED: POTASSIUM PHOS 3 MMOL/1 ML INFUSION IV STA (09:42)
[2021-02-21] MEDS ORDERED: hydrALAZINE HCL 20 MG/ML VIAL IV STA (09:47)
[2021-02-21] MEDS ORDERED: POTASSIUM PHOSPHATE 15 MMOL in SODIUM CHLORIDE 0.9% 250 ML IV ONE (10:00)
[2021-02-21] MEDS: DEXTROSE 5% 1,000 ML IV SCH (10:17)
[2021-02-21 12:13] LABS: Hematocrit (blood only) 27.5 % (42-52)
[2021-02-21 12:32] LABS: Codeine Urine NEGATIVE ng/mL (<50); Hydrocodone Urine NEGATIVE ng/mL (<50); Hydromor Urine NEGATIVE ng/mL (<50); MDA negative; MDEA negative; MDMA (Ecstasy) Urine, Confirm negative; Marijuana Quant, GCMS Urine 139 ng/mL (<5); Morphine Urine NEGATIVE ng/mL (<50); Norhydrocodone Conf Ur NEGATIVE ng/mL (<50); Noroxycodone Urine 935 ng/mL (<50); Oxycodone Urine 619 ng/mL (<50); Oxymorph Urine 56 ng/mL (<50)
[2021-02-21 17:36] LABS: Ethylene Glycol <10.0 mg/L (see note); Methyl Alcohol Comment WHOLE BLOOD; Methyl Alcohol Level NONE DETECTED (NONE DETECTED)
[2021-02-21] MEDS ORDERED: PANTOprazole 40 MG TAB PO SCH (21:00)
[2021-02-21] MEDS ORDERED: PANTOprazole 40 MG in SYRINGE 0 ML IV SCH (21:00)
--- NOTE | 2021-02-21 23:24 | Hospitalist Progress Note ---
Date of Service February 21, 2021 Assessment & Plan (1) Sepsis: present on arrival, unclear etiology at this time lactic acid has improved with aggressive fluids, not requiring pressors, not checking LA further broad spectrum antibiotics initially, down to Ampicillin/Vancomycin, complete 7 days total, last day would be 02/24/21 attempted LP twice 02/19 but no success, covering for meningitis as there is no obvious UTI or pneumonia or abdominal source of infection WBC elevated but improving, 18k follow up on final blood and urine cultures - no significant growth, one blood culture with coag neg staph (contaminant) (2) Acute blood loss anemia: Hemoglobin dropped to 6.1 on 02/18, transfused two units, Hb has been relatively stable, 7's EGD with normal esophagus, stomach, duodenum has evidence of bleed along psoas muscle, spontaneous retroperitoneal bleed is likely source of blood loss hold anticoagulation (3) Acute respiratory failure with hypoxia: breathing fast on low flow oxygen, confused due to sepsis was intubated electively to protect airway, plan for EGD extubated on 02/21, breathing well on low flow, no distress has COPD at baseline (4) KAYKAY (acute kidney injury): Cr was 1.8, down to 1.6 and now 0.95, making urine via thorne electrolytes stable utilizing Lasix to mobilize fluids, try to maintain negative fluid balance as he is now volume overloaded (5) Acute metabolic encephalopathy: due to sepsis, lactic acidosis (LA is improving) mental status is clear after extubation, he is oriented, asking appropriate questions (6) Chronic obstructive pulmonary disease: BiPAP initially, then down to room air but then intubated for EGD change Solu Medrol to Prednisone (7) Hypertension: Patient appears to be on furosemide 20 mg daily along with Lopressor 25 mg twice daily at home hold Eliquis continue metoprolol echo with EF of 70%, hyperdynamic LV in setting of sepsis, acute blood loss anemia (8) Temporal arteritis: Per previous documentation, patient was on 8 mg of prednisone with methotrexate resume Prednisone now that he is extubated (9) Dyslipidemia: Patient is on simvastatin 40mg, will check fasting lipid panel Admission and Anticipated Discharge Date Admission Date: February 17, 2021 Subjective reviewed labs and discussed with ICU he was awake and following commands with sedation holiday and SBT, asking for tube out he was extubated successfully today, he is alert and oriented, asking about what happened, asking if his son was contacted/updated he denies any abdominal pain, dyspnea, chest pain, fever WBC 18k, Hb 7's, Cr 0.9, K, Phos and Mag all normal appreciate ICU managing Review of Systems Review of Systems: All systems reviewed & are unremarkable except as noted in Subjective Constitutional: + fatigue and + weakness; no fever Respiratory: no cough and no dyspnea Cardiovascular: + edema; no chest pain, no palpitations and no syncope Gastrointestinal: no abdominal pain, no nausea, no vomiting, no constipation and no diarrhea/loose stools Musculoskeletal: + muscle weakness Physical Exam Constitutional: well developed, well nourished, + obese and + edematous Neck: trachea midline, no thyromegaly Respiratory: normal respiratory effort, lungs clear to auscultation normal respiratory effort; no respiratory distress and no labored breathing Auscultation: lungs clear to auscultation bilaterally Cardiovascular: Rate/Rhythm: regular rate and regular rhythm Heart Sounds: normal S1 and normal S2; no murmur Vessels: no JVD Extremities: normal capillary refill; no edema Gastrointestinal (Abdomen): normal bowel sounds, soft, nontender, no hepatosplenomegaly Skin: no rashes, warm and dry Neurologic: normal touch/pain/proprioception, CN's II-XI intact bilaterally, moves all extremities and awake; no focal motor deficits Psychiatric: A+Ox3, euthymic affect Results & Data Results & Data ([facility]) Vital Signs (Past 12 Hours) Vital Signs Temp Pulse Resp BP Pulse Ox Pulse Ox Pulse Ox 02/21/21 17:00 36.8 C 02/21/21 16:58 98 H 16 168/80 H 92 02/21/21 16:57 90 160/72 H 02/21/21 16:00 92 02/21/21 15:59 92 H 22 160/72 H 93 02/21/21 14:42 92 02/21/21 14:09 95 02/21/21 14:00 100 H 92 02/21/21 12:00 82 169/73 H 91 02/21/21 11:33 78 185/92 H 92 Laboratory Results Laboratory Results - last 24 hr 02/17/21 02/18/21 02/19/21 18:30 09:03 13:14 WBC RBC Hgb POC Hgb Hct POC Hct MCV MCH MCHC RDW Std Deviation RDW Coeff of Melba Plt Count MPV Immature Gran % (Auto) Neut % (Auto) Lymph % (Auto) Cecil % (Auto) Eos % (Auto) Baso % (Auto) Neut # (Auto) Lymph # (Auto) Cecil # (Auto) Eos # (Auto) Baso # (Auto) Immature Gran # (Auto) Absolute Nucleated RBC Nucleated RBC % (auto) Hypersegmented Neuts Polychromasia Basophilic Stippling Sample Site POC pH POC pCO2 POC pO2 POC HCO3 POC Total CO2 POC Base Excess ABG pH (Temp Correct) ABG pCO2 (Temp Corrct POC ABG pO2 at Pt Temp POC ABG O2 Sat Kodak Test VBG pH O2 Delivery Device POC O2 Rate POC FiO2 Tidal Volume PEEP POC Sodium Sodium POC Potassium Potassium Chloride Carbon Dioxide Anion Gap BUN Creatinine Est Cr Clr Drug Dosing Est GFR ( Amer) Est GFR (Non-Af Amer) BUN/Creatinine Ratio Glucose POC Glucose Calcium Phosphorus Magnesium Specimen Hemolysis Vancomycin Trough U Codeine Confrm GC/MS NEGATIVE Ur Morphine (GC/MS) NEGATIVE Ur Hydrocodone (GC/MS) NEGATIVE Ur Norhydrocodone NEGATIVE Ur Noroxycodone 935 H Urine Oxycodone (GC/MS) 619 H U Oxymorphone GC/MS 56 H Ur Hydromorphone (GC/MS) NEGATIVE Urine MDEA negative MDMA negative Urine MDMA negative U Marijuana THC Carboxy 139 H Drug Screen Comment SEE NOTE Ethylene Glycol <10.0 Volat Analys Perform On WHOLE BLOOD Methyl Alcohol Level NONE DETECTED T.pallidum Ab (FTA-ABS) NON-REACTIVE 02/20/21 02/21/21 02/21/21 23:45 03:59 04:03 WBC 18.88 H RBC 2.18 L Hgb 7.2 L POC Hgb Hct 22.0 L POC Hct MCV 100.9 H MCH 33.0 MCHC 32.7 RDW Std Deviation 59.5 H RDW Coeff of Melba 16.7 H Plt Count 151 MPV 10.9 H Immature Gran % (Auto) 4.2 Neut % (Auto) 87.5 Lymph % (Auto) 3.0 Cecil % (Auto) 5.1 Eos % (Auto) 0.0 Baso % (Auto) 0.2 Neut # (Auto) 16.53 H Lymph # (Auto) 0.56 L Cecil # (Auto) 0.96 H Eos # (Auto) 0.00 Baso # (Auto) 0.03 Immature Gran # (Auto) 0.80 H Absolute Nucleated RBC 0.75 H Nucleated RBC % (auto) 4.0 Hypersegmented Neuts 1+ Polychromasia 1+ Basophilic Stippling Occasional Sample Site POC pH POC pCO2 POC pO2 POC HCO3 POC Total CO2 POC Base Excess ABG pH (Temp Correct) ABG pCO2 (Temp Corrct POC ABG pO2 at Pt Temp POC ABG O2 Sat Kodak Test VBG pH O2 Delivery Device POC O2 Rate POC FiO2 Tidal Volume PEEP POC Sodium Sodium POC Potassium Potassium Chloride Carbon Dioxide Anion Gap BUN Creatinine Est Cr Clr Drug Dosing Est GFR ( Amer) Est GFR (Non-Af Amer) BUN/Creatinine Ratio Glucose POC Glucose 129 H 110 H Calcium Phosphorus Magnesium Specimen Hemolysis Vancomycin Trough U Codeine Confrm GC/MS Ur Morphine (GC/MS) Ur Hydrocodone (GC/MS) Ur Norhydrocodone Ur Noroxycodone Urine Oxycodone (GC/MS) U Oxymorphone GC/MS Ur Hydromorphone (GC/MS) Urine MDEA MDMA Urine MDMA U Marijuana THC Carboxy Drug Screen Comment Ethylene Glycol Volat Analys Perform On Methyl Alcohol Level T.pallidum Ab (FTA-ABS) 02/21/21 02/21/21 02/21/21 04:03 04:03 05:00 WBC RBC Hgb POC Hgb 7.8 L Hct POC Hct 23 L MCV MCH MCHC RDW Std Deviation RDW Coeff of Melba Plt Count MPV Immature Gran % (Auto) Neut % (Auto) Lymph % (Auto) Cecil % (Auto) Eos % (Auto) Baso % (Auto) Neut # (Auto) Lymph # (Auto) Cecil # (Auto) Eos # (Auto) Baso # (Auto) Immature Gran # (Auto) Absolute Nucleated RBC Nucleated RBC % (auto) Hypersegmented Neuts Polychromasia Basophilic Stippling Sample Site L Radial POC pH 7.38 POC pCO2 43 POC pO2 61 L POC HCO3 26 H POC Total CO2 27 POC Base Excess 0.0 ABG pH (Temp Correct) 7.375 ABG pCO2 (Temp Corrct 44 POC ABG pO2 at Pt Temp 63 POC ABG O2 Sat 91.0 Kodak Test Pass VBG pH 7.34 L O2 Delivery Device Ventilator POC O2 Rate 15 POC FiO2 30 Tidal Volume 430 PEEP 6 POC Sodium 144 Sodium 144 POC Potassium 3.6 Potassium 4.1 Chloride 114 H Carbon Dioxide 28 Anion Gap 2.0 L BUN 21 H Creatinine 0.95 Est Cr Clr Drug Dosing 92.7 Est GFR ( Amer) 89.8 Est GFR (Non-Af Amer) 77.4 BUN/Creatinine Ratio 21.8 H Glucose 117 H POC Glucose Calcium 6.9 L Phosphorus 2.3 L Magnesium 2.1 Specimen Hemolysis Vancomycin Trough U Codeine Confrm GC/MS Ur Morphine (GC/MS) Ur Hydrocodone (GC/MS) Ur Norhydrocodone Ur Noroxycodone Urine Oxycodone (GC/MS) U Oxymorphone GC/MS Ur Hydromorphone (GC/MS) Urine MDEA MDMA Urine MDMA U Marijuana THC Carboxy Drug Screen Comment Ethylene Glycol Volat Analys Perform On Methyl Alcohol Level T.pallidum Ab (FTA-ABS) 02/21/21 02/21/21 02/21/21 07:49 12:05 12:10 WBC RBC Hgb 9.0 L POC Hgb Hct 27.5 L POC Hct MCV MCH MCHC RDW Std Deviation RDW Coeff of Melba Plt Count MPV Immature Gran % (Auto) Neut % (Auto) Lymph % (Auto) Cecil % (Auto) Eos % (Auto) Baso % (Auto) Neut # (Auto) Lymph # (Auto) Cecil # (Auto) Eos # (Auto) Baso # (Auto) Immature Gran # (Auto) Absolute Nucleated RBC Nucleated RBC % (auto) Hypersegmented Neuts Polychromasia Basophilic Stippling Sample Site POC pH POC pCO2 POC pO2 POC HCO3 POC Total CO2 POC Base Excess ABG pH (Temp Correct) ABG pCO2 (Temp Corrct POC ABG pO2 at Pt Temp POC ABG O2 Sat Kodak Test VBG pH O2 Delivery Device POC O2 Rate POC FiO2 Tidal Volume PEEP POC Sodium Sodium POC Potassium Potassium Chloride Carbon Dioxide Anion Gap BUN Creatinine Est Cr Clr Drug Dosing Est GFR ( Amer) Est GFR (Non-Af Amer) BUN/Creatinine Ratio Glucose POC Glucose 121 H 140 H Calcium Phosphorus Magnesium Specimen Hemolysis Vancomycin Trough U Codeine Confrm GC/MS Ur Morphine (GC/MS) Ur Hydrocodone (GC/MS) Ur Norhydrocodone Ur Noroxycodone Urine Oxycodone (GC/MS) U Oxymorphone GC/MS Ur Hydromorphone (GC/MS) Urine MDEA MDMA Urine MDMA U Marijuana THC Carboxy Drug Screen Comment Ethylene Glycol Volat Analys Perform On Methyl Alcohol Level T.pallidum Ab (FTA-ABS) 02/21/21 02/21/21 02/21/21 14:07 16:39 20:31 WBC RBC Hgb POC Hgb Hct POC Hct MCV MCH MCHC RDW Std Deviation RDW Coeff of Melba Plt Count MPV Immature Gran % (Auto) Neut % (Auto) Lymph % (Auto) Cecil % (Auto) Eos % (Auto) Baso % (Auto) Neut # (Auto) Lymph # (Auto) Cecil # (Auto) Eos # (Auto) Baso # (Auto) Immature Gran # (Auto) Absolute Nucleated RBC Nucleated RBC % (auto) Hypersegmented Neuts Polychromasia Basophilic Stippling Sample Site POC pH POC pCO2 POC pO2 POC HCO3 POC Total CO2 POC Base Excess ABG pH (Temp Correct) ABG pCO2 (Temp Corrct POC ABG pO2 at Pt Temp POC ABG O2 Sat Kodak Test VBG pH O2 Delivery Device POC O2 Rate POC FiO2 Tidal Volume PEEP POC Sodium Sodium POC Potassium Potassium Chloride Carbon Dioxide Anion Gap BUN Creatinine Est Cr Clr Drug Dosing Est GFR ( Amer) Est GFR (Non-Af Amer) BUN/Creatinine Ratio Glucose POC Glucose 130 H 122 H Calcium Phosphorus Magnesium Specimen Hemolysis Vancomycin Trough 21.4 U Codeine Confrm GC/MS Ur Morphine (GC/MS) Ur Hydrocodone (GC/MS) Ur Norhydrocodone Ur Noroxycodone Urine Oxycodone (GC/MS) U Oxymorphone GC/MS Ur Hydromorphone (GC/MS) Urine MDEA MDMA Urine MDMA U Marijuana THC Carboxy Drug Screen Comment Ethylene Glycol Volat Analys Perform On Methyl Alcohol Level T.pallidum Ab (FTA-ABS) Medications Administered Current Inpatient Medications Acetaminophen (Acetaminophen 325 Mg Tab) 650 mg PO Q4H PRN PRN Reason: Pain or Fever Stop: 03/19/21 16:05 Albuterol (Albut/Ipratrop 3mg/0.5mg Neb 3 Ml Vial) 3 ml NEB QIDR PRN PRN Reason: Shortness Of Breath Or Wheezing Stop: 03/19/21 16:05 Aripiprazole ([facility]ip[facility]ole 5 Mg Tab) [facility] [place] Stop: 03/20/21 08:59 Last Admin: 02/18/21 08:02 Dose: Not Given Documented by: Bupropion HCl (Bupropion Sr 100 Mg Tabcr) 100 mg PO QAM [facility] Stop: 03/20/21 08:59 Last Admin: 02/18/21 08:02 Dose: Not Given Documented by: Cyanocobalamin (Cyanocobalamin 500 Mcg Tablet (Vitamin B-12)) 1,000 mcg PO QAM [facility] Stop: 03/20/21 08:59 Last Admin: 02/18/21 08:02 Dose: Not Given Documented by: Fentanyl Citrate (Fentanyl Bolus From Bag) 50 mcg IV Q60M PRN PRN Reason: Pain or Agitation Stop: 03/04/21 15:33 Last Admin: 02/19/21 09:30 Dose: 50 mcg Documented by: Folic Acid (Folic Acid 1 Mg Tab) [facility] [place] Stop: 03/20/21 08:59 Last Admin: 02/18/21 08:02 Dose: Not Given Documented by: Folic Acid 1 mg/ Syringe 10 mls @ 5 mls/min IV QAM [facility] Stop: 03/20/21 08:59 Last Admin: 02/21/21 07:59 Dose: 5 mls/min Documented by: Fentanyl Citrate (Fentanyl Drip) 1,250 mcg in 250 mls @ 0 mls/hr IV .Q0M [facility]; Protocol Stop: 03/04/21 15:44 Last Titration: 02/21/21 10:10 Dose: Infused Documented by: Ampicillin Sodium 2,000 mg/ (Sodium Chloride) 100 mls @ 200 mls/hr IV Q4 [facility]; Protocol Stop: 03/01/21 11:59 Last Infusion: 02/21/21 22:00 Dose: Infused Documented by: Dextrose (D5w) 1,000 mls @ 40 mls/hr IV .Q24H [facility] Stop: 03/22/21 07:44 Last Admin: 02/21/21 10:17 Dose: 40 mls/hr Documented by: Furosemide 40 mg/ Syringe 4 mls @ 4 mls/min IV DAILY [facility] Stop: 03/23/21 08:59 Last Admin: 02/21/21 09:30 Dose: 4 mls/min Documented by: Methylprednisolone 20 mg/ (Syringe) 0.32 mls @ 1.5 mls/min IV Q24H [facility] Stop: 03/24/21 08:59 Pantoprazole Sodium 40 mg/ (Syringe) 10 mls @ 5 mls/min IV BID@0900,2100 [facility] Stop: 03/23/21 20:59 Last Admin: 02/21/21 21:16 Dose: 5 mls/min Documented by: Vancomycin HCl 1,000 mg/ (Sodium Chloride) 270 mls @ 200 mls/hr IV Q12H [facility] Stop: 02/24/21 23:59 Insulin Aspart (Insulin Aspart 100 Units/Ml 3 Ml Pen) 0 units SC Q4 [facility] Stop: 03/20/21 15:59 Last Admin: 02/21/21 21:10 Dose: Not Given Documented by: Metoprolol Tartrate (Metoprolol Tartrate 25 Mg Tab) 25 mg PO BID [facility] Stop: 03/19/21 20:59 Last Admin: 02/18/21 08:02 Dose: Not Given Documented by: Metoprolol Tartrate (Metoprolol Tartrate 1 Mg/Ml Vial) 2.5 mg IV Q6 [facility] Stop: 03/20/21 05:59 Last Admin: 02/21/21 16:57 Dose: 2.5 mg Documented by: Miscellaneous Information (Vancomycin Consult Active) 1 ea N/A UD PRN PRN Reason: Consult Stop: 03/19/21 16:05 Nutritional Formula (Peptamen Intense Vhp 1.0 Aden 1,000 Ml Bag) 1,000 ml OG UD [facility]; Protocol Stop: 03/22/21 12:59 Last Admin: 02/20/21 13:18 Dose: 1,000 ml Documented by: Ondansetron HCl (Ondansetron Inj 2 Mg/Ml 2 Ml Vial) 4 mg IV Q6H PRN PRN Reason: Nausea Stop: 03/19/21 16:05 Potassium Chloride (Potassium Chloride Crtab 20 Meq Tabcr) 20 meq PO QAM [facility] Stop: 03/20/21 08:59 Last Admin: 02/18/21 08:02 Dose: Not Given Documented by: Simvastatin (Simvastatin 40 Mg Tab) 40 mg PO QPM [facility] Stop: 03/19/21 20:59 Last Admin: 02/17/21 21:38 Dose: Not Given Documented by: Spironolactone (Spironolactone 25 Mg Tab) 50 mg PO BID17 [facility] Stop: 03/19/21 16:59 Last Admin: 02/17/21 18:13 Dose: Not Given Documented by: Sterile Water (Tube Feeding Water Flush) 100 ml OG Q4 [facility] Stop: 03/22/21 12:59 Last Admin: 02/21/21 21:02 Dose: Not Given Documented by: Tamsulosin HCl (Tamsulosin Hcl 0.4 Mg Cap) 0.4 mg PO QAM [facility] Stop: 03/20/21 08:59 Last Admin: 02/18/21 08:02 Dose: Not Given Documented by: Venlafaxine HCl (Venlafaxine Hcl Xr 75 Mg Capxr) 225 mg PO QAM [facility] Stop: 03/20/21 08:59 Last Admin: 02/18/21 08:03 Dose: Not Given Documented by: Vitamin D (Cholecalciferol 400 Units 10 Mcg Tab) [facility] [place] Stop: 03/20/21 08:59 Last Admin: 02/18/21 08:02 Dose: Not Given Documented by: PG Care Time/CCT Total # of Minutes Spent Total Time Spent with Patient: Total time spent is greater than 50% in coordination of care (as documented) at patient's floor/unit and/or counseling patient: Coding Level of Care Code 80252 Subseq Hosp Care Lvl 2 Diagnoses Sepsis A41.9 Sepsis acute organ dysfunction status: unspecified Sepsis type: sepsis due to unspecified organism Acute blood loss anemia D62 Acute respiratory failure with hypoxia J96.01 KAYKAY (acute kidney injury) N17.9 Acute metabolic encephalopathy G93.41 Chronic obstructive pulmonary disease J44.9 COPD type: unspecified COPD Hypertension I10 Temporal arteritis M31.6 Dyslipidemia E78.5 (1) Sepsis Sepsis acute organ dysfunction status: unspecified Sepsis type: sepsis due to unspecified organism Qualified Code(s): A41.9 - Sepsis, unspecified organism (2) Chronic obstructive pulmonary disease COPD type: unspecified COPD Qualified Code(s): J44.9 - Chronic obstructive pulmonary disease, unspecified
[2021-02-22] MEDS: METOPROLOL TARTRATE 1 MG/ML VIAL IV SCH ×2 (00:29→05:12)
[2021-02-22] MEDS: AMPICILLIN 2,000 MG in SODIUM CHLOR 0.9% AD-VAN 100 ML IV SCH ×7 (00:30→23:41)
[2021-02-22] MEDS: INSULIN ASPART 100 UNITS/ML 3 ML PEN SC SCH ×7 (00:30→23:47)
[2021-02-22] MEDS: TUBE FEEDING WATER FLUSH OG SCH (00:31)
[2021-02-22] MEDS: ACETAMINOPHEN 325 MG TAB PO PRN (01:27)
[2021-02-22] MEDS: VANCOMYCIN HCL 1,000 MG in SODIUM CHLORIDE 0.9% 250 ML IV SCH ×2 (01:27→15:24)
[2021-02-22] MEDS ORDERED: FUROSEMIDE 20 MG in SYRINGE 0 ML IV ONE (02:00)
[2021-02-22 04:31] LABS: Hematocrit (blood only) 24.9 % (42-52); Hemoglobin 8.4 g/dL (14.0-18.0); Mean Corpuscular Hemoglobin 33.9 pg (25-34); Mean Corpuscular Hgb Conc 33.7 g/dL (32-36); Mean Corpuscular Volume 100.4 fL (80-100); Mean Platelet Volume 9.7 fL (7.4-10.4); Nucleated RBC % (auto) 1.9 %; Platelet Count 192 K/uL (130-400); RDW Coefficient of Variation 17.2 % (11.5-14.5); RDW Standard Deviation 57.6 fL (36.4-46.3); Red Blood Count 2.48 M/uL (4.7-6.1); White Blood Count 21.33 K/uL (4.8-10.8)
[2021-02-22 04:51] LABS: BUN Creatinine Ratio 18.5 (10-20); Calcium 7.8 mg/dl (8.5-10.1); Creatinine Clr Calc Pharmacy 81.1 ml/min; Est GFR (Non-African American) 65.6 ml/min; Magnesium 2.3 mg/dl (1.8-2.4); Potassium 3.5 mmol/L (3.5-5.1)
[2021-02-22 04:52] LABS: Phosphorus 2.2 mg/dl (2.5-4.9)
[2021-02-22 05:20] LABS: ALC (manual) 2.26 K/uL (1.2-3.4); ANC (manual) 16.81 K/uL (1.4-6.5); Basophilic Stippling 1+; Lymphocytes # (manual) 2.26 K/uL (1.2-3.4); Lymphocytes % (manual) 10.6 %; Metamyelocytes # (manual) 0.19 K/uL (0-0); Metamyelocytes % (manual) 0.9 %; Monocytes # (manual) 0.94 K/uL (0.11-0.59); Monocytes % (manual) 4.4 %; Myelocytes # (manual) 1.13 K/uL (0-0); Myelocytes % (manual) 5.3 %; Neutrophils # (manual) 16.81 K/uL (1.4-6.5); Neutrophils % (manual) 78.8 %; Stomatocytes 1+
[2021-02-22] MEDS ORDERED: POTASSIUM PHOS 3 MMOL/1 ML INFUSION IV STA (07:49)
[2021-02-22] MEDS ORDERED: POTASSIUM PHOSPHATE 30 MMOL in SODIUM CHLORIDE 0.9% 500 ML IV ONE (08:15)
[2021-02-22] MEDS ORDERED: methylPREDNISolone 20 MG in SYRINGE 0 ML IV SCH (09:00)
[2021-02-22] MEDS: DEXTROSE 5% 1,000 ML IV SCH (09:08)
[2021-02-22] MEDS: PANTOprazole 40 MG TAB PO SCH ×2 (09:11→21:45)
[2021-02-22] MEDS: predniSONE 10 MG TABLET PO SCH (09:11)
[2021-02-22] MEDS: FUROSEMIDE 40 MG in SYRINGE 0 ML IV SCH (09:12)
[2021-02-22] MEDS: FOLIC ACID 1 MG in SYRINGE 9.8 ML IV SCH (09:12)
--- NOTE | 2021-02-22 09:27 | Hospitalist Progress Note ---
Date of Service February 22, 2021 Assessment & Plan (1) Sepsis: present on arrival, unclear etiology at this time lactic acid has improved with aggressive fluids, not requiring pressors, not checking LA further broad spectrum antibiotics initially, down to Ampicillin/Vancomycin, complete 7 days total, last day would be 02/24/21 attempted LP twice 02/19 but no success, covering for meningitis as there is no obvious UTI or pneumonia or abdominal source of infection WBC elevated at 21k follow up on final blood and urine cultures - no significant growth, one blood culture with coag neg staph (contaminant) move to PCU today (2) Acute blood loss anemia: Hemoglobin dropped to 6.1 on 02/18, transfused two units, Hb has been relatively stable, 8's today EGD with normal esophagus, stomach, duodenum had evidence of bleed along psoas muscle, spontaneous retroperitoneal bleed is likely source of blood loss hold anticoagulation for time being (3) Acute respiratory failure with hypoxia: breathing fast on low flow oxygen, confused on admission due to sepsis was intubated electively to protect airway, plan for EGD extubated on 02/21, breathing well on low flow, no distress has COPD at baseline c/o dyspnea, likely from volume overload, diuresing with Lasix (4) KAYKAY (acute kidney injury): Cr was 1.8, down to 1.6 and now 1.0, making urine via thorne electrolytes stable utilizing Lasix to mobilize fluids, try to maintain negative fluid balance as he is now volume overloaded - 4000mL in past 24 hours (5) Acute metabolic encephalopathy: due to sepsis, lactic acidosis (LA is improving) mental status is clear after extubation, he is oriented, asking appropriate questions (6) Chronic obstructive pulmonary disease: BiPAP initially, then down to room air but then intubated for EGD change Solu Medrol to Prednisone (7) Hypertension: Lasix IV continue metoprolol BP low normal echo with EF of 70%, hyperdynamic LV in setting of sepsis, acute blood loss anemia (8) Temporal arteritis: Per previous documentation, patient was on 8 mg of prednisone with methotrexate resume Prednisone now that he is extubated (9) Dyslipidemia: Patient is on simvastatin 40mg at home Admission and Anticipated Discharge Date Admission Date: February 17, 2021 Subjective patient feeling well, only complaint is weakness and he feels a little short of breath appetite is intact, no having some ice cream, applesauce and taking pills reviewed labs, Cr is 1.0, electrolytes normal, WBC 21k, Hb 8 making a lot of urine with lasix via thorne he was only able to sit up with feet dangling yesterday with therapy d/w ICU, okay to downgrade to PCU status today patient pleased, he was able to visit with his son yesterday for an hour Review of Systems Review of Systems: All systems reviewed & are unremarkable except as noted in Subjective Constitutional: + fatigue and + weakness; no fever Respiratory: + dyspnea and + dyspnea on exertion; no cough Cardiovascular: + edema; no chest pain, no palpitations and no syncope Gastrointestinal: no abdominal pain, no nausea, no vomiting, no constipation and no diarrhea/loose stools Musculoskeletal: + muscle weakness Physical Exam Constitutional: well developed, well nourished, + obese and + edematous Neck: trachea midline, no thyromegaly Respiratory: normal respiratory effort; no respiratory distress and no labored breathing Auscultation: lungs clear to auscultation bilaterally Cardiovascular: Rate/Rhythm: regular rate and regular rhythm Heart Sounds: normal S1 and normal S2; no murmur Vessels: no JVD Extremities: normal capillary refill and + edema Gastrointestinal (Abdomen): normal bowel sounds, soft, nontender, no hepatosplenomegaly Musculoskeletal: Head/Neck/Chest: normocephalic, head atraumatic and neck supple Extremities: extremities normal to inspection and + abnormal strength (generalized weakness) Skin: no rashes, warm and dry Neurologic: normal touch/pain/proprioception, CN's II-XI intact bilaterally, moves all extremities and awake; no focal motor deficits Psychiatric: A+Ox3, euthymic affect Results & Data Results & Data ([facility]) Vital Signs (Past 12 Hours) Vital Signs Temp Pulse Resp BP Pulse Ox 02/22/21 05:58 65 11 L 108/51 L 97 02/22/21 05:12 68 143/55 H 02/22/21 04:58 69 17 143/55 H 99 02/22/21 03:58 36.7 C 74 15 115/52 L 97 02/22/21 02:58 94 H 13 141/60 H 95 02/22/21 01:58 96 H 21 165/74 H 89 L 02/22/21 00:30 92 H 19 198/85 H 98 02/22/21 00:29 97 H 198/85 H 02/21/21 23:59 81 02/21/21 23:58 36.8 C 73 19 145/57 H 99 02/21/21 22:58 79 14 131/60 100 02/21/21 21:58 69 23 143/55 H 98 Laboratory Results Laboratory Results - last 24 hr 02/17/21 02/18/21 02/19/21 18:30 09:03 13:14 WBC RBC Hgb Hct MCV MCH MCHC RDW Std Deviation RDW Coeff of Melba Plt Count MPV Absolute Nucleated RBC Nucleated RBC % (auto) Neutrophils % (Manual) Lymphocytes % (Manual) Monocytes % (Manual) Metamyelocytes % (Man) Myelocytes % (Man) Neutrophils # (Manual) Total Absolute Neuts Lymphocytes # (Manual) Total Abs Lymphocytes Monocytes # (Manual) Metamyelocytes # (Man) Myelocytes # (Manual) Hypersegmented Neuts Basophilic Stippling Stomatocytes Sodium Potassium Chloride Carbon Dioxide Anion Gap BUN Creatinine Est Cr Clr Drug Dosing Est GFR ( Amer) Est GFR (Non-Af Amer) BUN/Creatinine Ratio Glucose POC Glucose Calcium Phosphorus Magnesium Vancomycin Trough U Codeine Confrm GC/MS NEGATIVE Ur Morphine (GC/MS) NEGATIVE Ur Hydrocodone (GC/MS) NEGATIVE Ur Norhydrocodone NEGATIVE Ur Noroxycodone 935 H Urine Oxycodone (GC/MS) 619 H U Oxymorphone GC/MS 56 H Ur Hydromorphone (GC/MS) NEGATIVE Urine MDEA negative MDMA negative Urine MDMA negative U Marijuana THC Carboxy 139 H Drug Screen Comment SEE NOTE Ethylene Glycol <10.0 Volat Analys Perform On WHOLE BLOOD Methyl Alcohol Level NONE DETECTED T.pallidum Ab (FTA-ABS) NON-REACTIVE 02/21/21 02/21/21 02/21/21 12:05 12:10 14:07 WBC RBC Hgb 9.0 L Hct 27.5 L MCV MCH MCHC RDW Std Deviation RDW Coeff of Melba Plt Count MPV Absolute Nucleated RBC Nucleated RBC % (auto) Neutrophils % (Manual) Lymphocytes % (Manual) Monocytes % (Manual) Metamyelocytes % (Man) Myelocytes % (Man) Neutrophils # (Manual) Total Absolute Neuts Lymphocytes # (Manual) Total Abs Lymphocytes Monocytes # (Manual) Metamyelocytes # (Man) Myelocytes # (Manual) Hypersegmented Neuts Basophilic Stippling Stomatocytes Sodium Potassium Chloride Carbon Dioxide Anion Gap BUN Creatinine Est Cr Clr Drug Dosing Est GFR ( Amer) Est GFR (Non-Af Amer) BUN/Creatinine Ratio Glucose POC Glucose 140 H Calcium Phosphorus Magnesium Vancomycin Trough 21.4 U Codeine Confrm GC/MS Ur Morphine (GC/MS) Ur Hydrocodone (GC/MS) Ur Norhydrocodone Ur Noroxycodone Urine Oxycodone (GC/MS) U Oxymorphone GC/MS Ur Hydromorphone (GC/MS) Urine MDEA MDMA Urine MDMA U Marijuana THC Carboxy Drug Screen Comment Ethylene Glycol Volat Analys Perform On Methyl Alcohol Level T.pallidum Ab (FTA-ABS) 02/21/21 02/21/21 02/22/21 16:39 20:31 00:27 WBC RBC Hgb Hct MCV MCH MCHC RDW Std Deviation RDW Coeff of Melba Plt Count MPV Absolute Nucleated RBC Nucleated RBC % (auto) Neutrophils % (Manual) Lymphocytes % (Manual) Monocytes % (Manual) Metamyelocytes % (Man) Myelocytes % (Man) Neutrophils # (Manual) Total Absolute Neuts Lymphocytes # (Manual) Total Abs Lymphocytes Monocytes # (Manual) Metamyelocytes # (Man) Myelocytes # (Manual) Hypersegmented Neuts Basophilic Stippling Stomatocytes Sodium Potassium Chloride Carbon Dioxide Anion Gap BUN Creatinine Est Cr Clr Drug Dosing Est GFR ( Amer) Est GFR (Non-Af Amer) BUN/Creatinine Ratio Glucose POC Glucose 130 H 122 H 101 H Calcium Phosphorus Magnesium Vancomycin Trough U Codeine Confrm GC/MS Ur Morphine (GC/MS) Ur Hydrocodone (GC/MS) Ur Norhydrocodone Ur Noroxycodone Urine Oxycodone (GC/MS) U Oxymorphone GC/MS Ur Hydromorphone (GC/MS) Urine MDEA MDMA Urine MDMA U Marijuana THC Carboxy Drug Screen Comment Ethylene Glycol Volat Analys Perform On Methyl Alcohol Level T.pallidum Ab (FTA-ABS) 02/22/21 02/22/21 02/22/21 04:10 04:10 07:30 WBC 21.33 H RBC 2.48 L Hgb 8.4 L Hct 24.9 L MCV 100.4 H MCH 33.9 MCHC 33.7 RDW Std Deviation 57.6 H RDW Coeff of Melba 17.2 H Plt Count 192 MPV 9.7 Absolute Nucleated RBC 0.40 H Nucleated RBC % (auto) 1.9 Neutrophils % (Manual) 78.8 Lymphocytes % (Manual) 10.6 Monocytes % (Manual) 4.4 Metamyelocytes % (Man) 0.9 Myelocytes % (Man) 5.3 Neutrophils # (Manual) 16.81 H Total Absolute Neuts 16.81 H Lymphocytes # (Manual) 2.26 Total Abs Lymphocytes 2.26 Monocytes # (Manual) 0.94 H Metamyelocytes # (Man) 0.19 H Myelocytes # (Manual) 1.13 H Hypersegmented Neuts 1+ Basophilic Stippling 1+ Stomatocytes 1+ Sodium 147 H Potassium 3.5 Chloride 112 H Carbon Dioxide 33 H Anion Gap 2.0 L BUN 20 H Creatinine 1.09 Est Cr Clr Drug Dosing 81.1 Est GFR ( Amer) 76.0 Est GFR (Non-Af Amer) 65.6 BUN/Creatinine Ratio 18.5 Glucose 112 H POC Glucose 98 Calcium 7.8 L Phosphorus 2.2 L Magnesium 2.3 Vancomycin Trough U Codeine Confrm GC/MS Ur Morphine (GC/MS) Ur Hydrocodone (GC/MS) Ur Norhydrocodone Ur Noroxycodone Urine Oxycodone (GC/MS) U Oxymorphone GC/MS Ur Hydromorphone (GC/MS) Urine MDEA MDMA Urine MDMA U Marijuana THC Carboxy Drug Screen Comment Ethylene Glycol Volat Analys Perform On Methyl Alcohol Level T.pallidum Ab (FTA-ABS) Medications Administered Current Inpatient Medications Acetaminophen (Acetaminophen 325 Mg Tab) 650 mg PO Q4H PRN PRN Reason: Pain or Fever Stop: 03/19/21 16:05 Last Admin: 02/22/21 01:27 Dose: 650 mg Documented by: Albuterol (Albut/Ipratrop 3mg/0.5mg Neb 3 Ml Vial) 3 ml NEB QIDR PRN PRN Reason: Shortness Of Breath Or Wheezing Stop: 03/19/21 16:05 Aripiprazole (Aripiprazole 5 Mg Tab) 5 mg PO QAM BETH Stop: 03/20/21 08:59 Last Admin: 02/18/21 08:02 Dose: Not Given Documented by: Bupropion HCl (Bupropion Sr 100 Mg Tabcr) 100 mg PO QAM [facility] Stop: 03/20/21 08:59 Last Admin: 02/18/21 08:02 Dose: Not Given Documented by: Cyanocobalamin (Cyanocobalamin 500 Mcg Tablet (Vitamin B-12)) 1,000 mcg PO QAM [facility] Stop: 03/20/21 08:59 Last Admin: 02/18/21 08:02 Dose: Not Given Documented by: Folic Acid (Folic Acid 1 Mg Tab) 1 mg PO QAM [facility] Stop: 03/20/21 08:59 Last Admin: 02/18/21 08:02 Dose: Not Given Documented by: Folic Acid 1 mg/ Syringe 10 mls @ 5 mls/min IV QAM [facility] Stop: 03/20/21 08:59 Last Admin: 02/22/21 09:12 Dose: 5 mls/min Documented by: Ampicillin Sodium 2,000 mg/ (Sodium Chloride) 100 mls @ 200 mls/hr IV Q4 [facility]; Protocol Stop: 03/01/21 11:59 Last Admin: 02/22/21 09:11 Dose: 200 mls/hr Documented by: Dextrose (D5w) 1,000 mls @ 40 mls/hr IV .Q24H [facility] Stop: 03/22/21 07:44 Last Admin: 02/22/21 09:08 Dose: Not Given Documented by: Furosemide 40 mg/ Syringe 4 mls @ 4 mls/min IV DAILY BETH Stop: 03/23/21 08:59 Last Admin: 02/22/21 09:12 Dose: 4 mls/min Documented by: Vancomycin HCl 1,000 mg/ (Sodium Chloride) 270 mls @ 200 mls/hr IV Q12H [facility] Stop: 02/24/21 23:59 Last Infusion: 02/22/21 03:02 Dose: Infused Documented by: Potassium Phosphate 30 mmol/ (Sodium Chloride) 510 mls @ 88 mls/hr IV ONE ONE Stop: 02/22/21 14:02 Last Admin: 02/22/21 09:11 Dose: 88 mls/hr Documented by: Insulin Aspart (Insulin Aspart 100 Units/Ml 3 Ml Pen) 0 units SC Q4 BETH Stop: 03/20/21 15:59 Last Admin: 02/22/21 07:43 Dose: Not Given Documented by: Metoprolol Tartrate (Metoprolol Tartrate 25 Mg Tab) 25 mg PO BID BETH Stop: 03/19/21 20:59 Last Admin: 02/18/21 08:02 Dose: Not Given Documented by: Metoprolol Tartrate (Metoprolol Tartrate 1 Mg/Ml Vial) 2.5 mg IV Q6 BETH Stop: 03/20/21 05:59 Last Admin: 02/22/21 05:12 Dose: 2.5 mg Documented by: Miscellaneous Information (Vancomycin Consult Active) 1 ea N/A UD PRN PRN Reason: Consult Stop: 03/19/21 16:05 Ondansetron HCl (Ondansetron Inj 2 Mg/Ml 2 Ml Vial) 4 mg IV Q6H PRN PRN Reason: Nausea Stop: 03/19/21 16:05 Pantoprazole Sodium (Pantoprazole 40 Mg Tab) 40 mg PO BID BETH Stop: 03/24/21 08:59 Last Admin: 02/22/21 09:11 Dose: 40 mg Documented by: Potassium Chloride (Potassium Chloride Crtab 20 Meq Tabcr) 20 meq PO QAM [facility] Stop: 03/20/21 08:59 Last Admin: 02/18/21 08:02 Dose: Not Given Documented by: Prednisone (Prednisone 10 Mg Tablet) 10 mg PO DAILY BETH Stop: 03/24/21 08:59 Last Admin: 02/22/21 09:11 Dose: 10 mg Documented by: Simvastatin (Simvastatin 40 Mg Tab) 40 mg PO QPM [facility] Stop: 03/19/21 20:59 Last Admin: 02/17/21 21:38 Dose: Not Given Documented by: Spironolactone (Spironolactone 25 Mg Tab) 50 mg PO BID17 [facility] Stop: 03/19/21 16:59 Last Admin: 02/17/21 18:13 Dose: Not Given Documented by: Tamsulosin HCl (Tamsulosin Hcl 0.4 Mg Cap) 0.4 mg PO QAM [facility] Stop: 03/20/21 08:59 Last Admin: 02/18/21 08:02 Dose: Not Given Documented by: Venlafaxine HCl (Venlafaxine Hcl Xr 75 Mg Capxr) 225 mg PO QAM [facility] Stop: 03/20/21 08:59 Last Admin: 02/18/21 08:03 Dose: Not Given Documented by: Vitamin D (Cholecalciferol 400 Units 10 Mcg Tab) 800 units PO QAM BETH Stop: 03/20/21 08:59 Last Admin: 02/18/21 08:02 Dose: Not Given Documented by: PG Care Time/CCT Total # of Minutes Spent Total Time Spent with Patient: Total time spent is greater than 50% in coordination of care (as documented) at patient's floor/unit and/or counseling patient: Coding Level of Care Code 43763 Subseq Hosp Care Lvl 3 Diagnoses Sepsis A41.9 Sepsis acute organ dysfunction status: unspecified Sepsis type: sepsis due to unspecified organism Acute blood loss anemia D62 Acute respiratory failure with hypoxia J96.01 KAYKAY (acute kidney injury) N17.9 Acute metabolic encephalopathy G93.41 Chronic obstructive pulmonary disease J44.9 COPD type: unspecified COPD Hypertension I10 Temporal arteritis M31.6 Dyslipidemia E78.5 (1) Sepsis Sepsis acute organ dysfunction status: unspecified Sepsis type: sepsis due to unspecified organism Qualified Code(s): A41.9 - Sepsis, unspecified organism (2) Chronic obstructive pulmonary disease COPD type: unspecified COPD Qualified Code(s): J44.9 - Chronic obstructive pulmonary disease, unspecified
--- NOTE | 2021-02-22 11:12 | Critical Care Progress Note ---
Date of Service February 22, 2021 Assessment & Plan (1) Acute metabolic encephalopathy: 75-year-old male past medical history of temporal arthritis on methotrexate 15 mg q. Wednesday and prednisone on a daily basis, hypertension, depression, Paroxysmal A. fib on apixaban, COPD on 3 L nasal cannula was admitted to the hospital as he was found to be on his lawn. initial blood pressure was 80/60 with a pulse of 150 Initial lactate was 14. Patient was given 2.5 lactate went down to 4.8. CT chest 02/17/2021 personally reviewed: Increased interstitial thickening appreciated bilaterally more in the apical lobe peripherally. No clear infiltrate identified Old granulomatous No mediastinal adenopathy EKG 02/17/2021: No acute events undefined, right axis deviation, QTC 463 Patient has seen the patient in the ED 1 which is chronic and was also appreciated in August --S/p VDRF As a measure for airway protection secondary for altered mental status Extubated 02/21/2021 Doing well on nasal cannula. Patient on 3 L oxygen at home --S/p metabolic encephalopathy Etiology is unclear right now CT head 02/17/2021 negative, patient moving all extremities on command TSH within normal limit, calcium within normal limit RPR negative UDS positive for opiates, ecstasy(likely from venlafaxine) as well as marijuana(patient smokes marijuana) Continue with empiric antibiotics Follow-up septic work-up ESR less than 1, CRP 1.26 ? seziure with a blank stare. Got one dose of Keppra 02/17/2021. EEG negative for seizures --Acute blood loss anemia Patient is on apixaban at home, s/p Kcentra 02/18/2021 Last dose was 02/17/21 S/p 2 units PRBC 02/19/2021 S/p EGD 02/18/2021 but did not show any active bleed Patient also has small retroperitoneal bleed on the left side Continue with Protonix drip Random cortisol 66.5 COVID-19 PCR negative Procalcitonin negative --S/p HAGMA Metabolic acidosis likely from lactic acidosis Patient having melanotic stool could be the reason for alkalosis Positive urinary gap Monitor Serum osmolality 338, calculated osmolality 324, osmolar gap 14 which is very minimally elevated. Salicylate and acetaminophen level negative Patient also had elevated beta hydroxybutyrate which could be from starvation Patient got 2 Amps bicarb so far. Repeat CT abdomen pelvis 02/18/2021 did not show any signs of bowel ischemia, there was small retroperitoneal bleed/edema left lower quadrant. Not significant enough to give the lactic acidosis --S/p KAYKAY Likely secondary to dehydration, prerenal component Improving Fe Na: 0.94%, prerenal Monitor BUN/creatinine Avoid nephrotoxic medications Strict ins and outs --COPD Not in exacerbation We will continue with steroids for the time being and gradually taper it off --Elevated troponin Likely type II [place] Trend troponins --A. fib Continue with IV metoprolol --History of temporal arthritis Biopsy-proven On methotrexate 15 mg q. Wednesday as well as prednisone Follow methotrexate level --Anxiety with depression On bupropion, venlafaxine and aripiprazole as an outpatient On hold currently --History of hypertension Hold spironolactone --BPH Continue with tamsulosin --Prophylaxis VTE: IPC's. Apixaban on hold GI: Protonix drip Lines: Peripheral Diet: Cardiac Plan: In/out: -3.1 L, urine output 6.1 L Hypernatremia with hyperchloremia, likely combination of IV fluid as well as Lasix Continue with free water by mouth now. Repeat BMP at 3 PM Continue with Lasix for the time being. Can transition to p.o. later on. K-Phos 30 mmol to be given IV Change Protonix to p.o. 40 twice daily DC Solu-Medrol. Start the patient on p.o. prednisone home dose. I think we can resume his apixaban starting tomorrow if hemoglobin is stable I would continue with antibiotics for total of 7 days. MIRLANDE Mendiola prior to going out of the ICU Patient is hemodynamically stable to be sent out of the ICU Would recommend BiPAP nightly and as needed shortness of breath Please note the above document was generated using voice recognition software. It may contain grammatical, syntax or spelling errors.Any formal questions or concerns about the content, text or information contained within the body of this dictation should be directly addressed to the provider for clarification. (2) Anxiety and depression: (3) Paroxysmal atrial fibrillation: (4) Chronic obstructive pulmonary disease: (5) Chronic respiratory failure with hypoxia: (6) Temporal arteritis: (7) KAYKAY (acute kidney injury): Admission and Anticipated Discharge Date Admission Date: February 17, 2021 Subjective Patient seen and examined at bedside. No acute distress. No adverse events overnight. Successfully extubated 02/21/2021 Patient answering all the questions appropriately Denies any chest pain, does complain of some chest tightness. No nausea or vomiting. Review of Systems Review of Systems: All systems reviewed & are unremarkable except as noted in Subjective Physical Exam Physical Exam: Constitutional: No acute distress HEENT: EOMI, PERRLA Respiratory system: Decreased air entry bilaterally, no wheeze, no rhonchi, positive crackles bilateral lower lobes CVS: S1-S2 positive, no murmurs or gallops Abdomen: Soft, obese, nontender, nondistended, no rebound, positive bowel sounds x4 Extremities: +2 pulses bilaterally radialis/ dorsalis pedis, no cyanosis, +2 edema bilateral lower extremity Neuro: Awake alert oriented x3 Psych: Normal mood and affect G/U: Positive Mendiola Skin: no rashes, warm and dry Lymphatic: no cervical or axillary lymphadenopathy Results & Data Results & Data ([facility]) Vital Signs (Past 12 Hours) Vital Signs Temp Pulse Resp BP Pulse Ox 02/22/21 08:00 72 02/22/21 05:58 65 11 L 108/51 L 97 02/22/21 05:12 68 143/55 H 02/22/21 04:58 69 17 143/55 H 99 02/22/21 03:58 36.7 C 74 15 115/52 L 97 02/22/21 02:58 94 H 13 141/60 H 95 02/22/21 01:58 96 H 21 165/74 H 89 L 02/22/21 00:30 92 H 19 198/85 H 98 02/22/21 00:29 97 H 198/85 H 02/21/21 23:59 81 02/21/21 23:58 36.8 C 73 19 145/57 H 99 02/22/21 04:10 02/22/21 04:10 Coding Level of Care Code 81794 Subseq Hosp Care Lvl 3 Diagnoses Acute metabolic encephalopathy G93.41 Anxiety and depression F41.9; F32.9 Paroxysmal atrial fibrillation I48.0 Chronic obstructive pulmonary disease J44.9 COPD type: unspecified COPD Chronic respiratory failure with hypoxia J96.11 Temporal arteritis M31.6 KAYKAY (acute kidney injury) N17.9 (1) Chronic obstructive pulmonary disease COPD type: unspecified COPD Qualified Code(s): J44.9 - Chronic obstructive pulmonary disease, unspecified
[2021-02-22] MEDS ORDERED: VANCOMYCIN TROUGH ONE (13:30)
[2021-02-22 15:34] LABS: BUN Creatinine Ratio 17.7 (10-20); Calcium 7.9 mg/dl (8.5-10.1); Creatinine Clr Calc Pharmacy 83.2 ml/min; Est GFR (African American) 78.6 ml/min; Est GFR (Non-African American) 67.8 ml/min; Potassium 3.7 mmol/L (3.5-5.1)
[2021-02-22 15:39] LABS: Magnesium 2.1 mg/dl (1.8-2.4); Phosphorus 3.2 mg/dl (2.5-4.9)
[2021-02-22] MEDS: METOPROLOL TARTRATE 25 MG TAB PO SCH (21:45)
[2021-02-22] MEDS: SIMVASTATIN 40 MG TAB PO SCH (21:45)
[2021-02-23] MEDS: ACETAMINOPHEN 325 MG TAB PO PRN ×3 (02:07→21:22)
[2021-02-23] MEDS: VANCOMYCIN HCL 1,000 MG in SODIUM CHLORIDE 0.9% 250 ML IV SCH ×2 (02:07→16:00)
[2021-02-23] MEDS: AMPICILLIN 2,000 MG in SODIUM CHLOR 0.9% AD-VAN 100 ML IV SCH ×5 (04:18→19:54)
[2021-02-23] MEDS: INSULIN ASPART 100 UNITS/ML 3 ML PEN SC SCH ×5 (04:28→19:55)
[2021-02-23 07:57] LABS: Albumin Level 1.4 gm/dl (3.4-5.0); BUN Creatinine Ratio 18.2 (10-20); Creatinine Clr Calc Pharmacy 94.4 ml/min; Est GFR (African American) 97.2 ml/min; Est GFR (Non-African American) 83.8 ml/min; Magnesium 1.9 mg/dl (1.8-2.4); Potassium 3.4 mmol/L (3.5-5.1)
[2021-02-23 08:00] LABS: Albumin Globulin Ratio 1.1 (0.9-2); Bilirubin,Total 0.5 mg/dl (0.2-1); Globulin 1.2 gm/dl (2.5-4.0); Phosphorus 3.3 mg/dl (2.5-4.9); Total Protein 2.6 gm/dl (6.4-8.2)
[2021-02-23 08:16] LABS: Hematocrit (blood only) 28.2 % (42-52); Hemoglobin 8.9 g/dL (14.0-18.0); Mean Corpuscular Hemoglobin 32.8 pg (25-34); Mean Corpuscular Volume 104.1 fL (80-100); Mean Platelet Volume 9.8 fL (7.4-10.4); Nucleated RBC # (auto) 0.43 K/uL (0-0); Nucleated RBC % (auto) 2.4 %; Platelet Count 206 K/uL (130-400); RDW Coefficient of Variation 17.7 % (11.5-14.5); RDW Standard Deviation 61.8 fL (36.4-46.3); Red Blood Count 2.71 M/uL (4.7-6.1)
[2021-02-23 08:29] LABS: Mean Corpuscular Hgb Conc 31.6 g/dL (32-36)
[2021-02-23] MEDS: METOPROLOL TARTRATE 25 MG TAB PO SCH ×2 (09:23→21:19)
[2021-02-23] MEDS: FUROSEMIDE 40 MG in SYRINGE 0 ML IV SCH (09:23)
[2021-02-23] MEDS: CHOLECALCIFEROL 400 UNITS 10 MCG TAB PO SCH (09:23)
[2021-02-23] MEDS: predniSONE 10 MG TABLET PO SCH (09:24)
[2021-02-23] MEDS: PANTOprazole 40 MG TAB PO SCH ×2 (09:24→21:19)
[2021-02-23] MEDS: VENLAFAXINE HCL XR 75 MG CAPXR PO SCH (09:24)
[2021-02-23] MEDS: FOLIC ACID 1 MG TAB PO SCH (09:24)
[2021-02-23] MEDS: buPROPion SR 100 MG TABCR PO SCH (09:24)
[2021-02-23] MEDS: CYANOCOBALAMIN 500 MCG TABLET (VITAMIN B-12) PO SCH (09:24)
[2021-02-23] MEDS: ARIPiprazole 5 MG TAB PO SCH (09:24)
[2021-02-23] MEDS: POTASSIUM CHLORIDE CRTAB 20 MEQ TABCR PO SCH ×2 (09:37→17:43)
--- NOTE | 2021-02-23 11:14 | Hospitalist Progress Note ---
Date of Service February 23, 2021 Assessment & Plan (1) Sepsis: present on arrival, unclear etiology at this time lactic acid has improved with aggressive fluids, not requiring pressors, not checking LA further broad spectrum antibiotics initially, down to Ampicillin/Vancomycin, complete 7 days total, last day would be 02/24/21 attempted LP twice 02/19 but no success, covering for meningitis as there is no obvious UTI or pneumonia or abdominal source of infection WBC down to 17k follow up on final blood and urine cultures - no significant growth, one blood culture with coag neg staph (contaminant) would consider them final at this point (2) Acute blood loss anemia: Hemoglobin dropped to 6.1 on 02/18, transfused two units, Hb has been relatively stable, 8.9 today EGD with normal esophagus, stomach, duodenum had evidence of bleed along psoas muscle, spontaneous retroperitoneal bleed is likely source of blood loss (3) Acute respiratory failure with hypoxia: breathing fast on low flow oxygen, confused on admission due to sepsis was intubated electively to protect airway, plan for EGD extubated on 02/21, breathing well on low flow, no distress has COPD at baseline c/o dyspnea, likely from volume overload, diuresing with Lasix, breathing better the more fluid we get off (4) KAYKAY (acute kidney injury): Cr was 1.8, down to 1.6 and now 0.8, making a lot of urine via thoren electrolytes stable utilizing Lasix to mobilize fluids, try to maintain negative fluid balance as he is now volume overloaded (5) Acute metabolic encephalopathy: due to sepsis, lactic acidosis resolved mental status is clear after extubation, he is oriented, asking appropriate questions (6) Chronic obstructive pulmonary disease: BiPAP initially, then down to room air but then intubated for EGD change Solu Medrol to Prednisone (7) Hypertension: Lasix IV continue metoprolol BP low normal echo with EF of 70%, hyperdynamic LV in setting of sepsis, acute blood loss anemia (8) Temporal arteritis: Per previous documentation, patient was on 8 mg of prednisone with methotrexate resume Prednisone now that he is extubated (9) Dyslipidemia: Patient is on simvastatin 40mg at home (10) Hypokalemia: low due to Lasix IV 3.4 today, will increase KCL to 20 bid Admission and Anticipated Discharge Date Admission Date: February 17, 2021 Subjective labs reviewed, WBC down to 17k, Hb 8.9, K 3.4, Cr 0.87 still no growth on cultures, would be consider final he is making a lot of urine with the Lasix 40mg IV daily, less edema today eating well, getting OOB to the chair today no dyspnea, no chest pain he agrees to going to rehab, he feels weak Review of Systems Review of Systems: All systems reviewed & are unremarkable except as noted in Subjective Constitutional: + weakness; no fever, no chills and no fatigue Respiratory: + dyspnea on exertion; no cough and no dyspnea Cardiovascular: + edema; no chest pain, no palpitations and no syncope Gastrointestinal: no abdominal pain, no nausea, no vomiting, no constipation and no diarrhea/loose stools Physical Exam Constitutional: well developed, well nourished, + obese and + edematous Neck: trachea midline, no thyromegaly Respiratory: normal respiratory effort; no respiratory distress and no labored breathing Auscultation: lungs clear to auscultation bilaterally Cardiovascular: Rate/Rhythm: regular rate and regular rhythm Heart Sounds: normal S1 and normal S2; no murmur Vessels: no JVD Extremities: normal capillary refill and + edema Gastrointestinal (Abdomen): normal bowel sounds, soft, nontender, no hepatosplenomegaly Musculoskeletal: Head/Neck/Chest: normocephalic, head atraumatic and neck supple Extremities: extremities normal to inspection and + abnormal strength (generalized weakness) Skin: no rashes, warm and dry Neurologic: normal touch/pain/proprioception, CN's II-XI intact bilaterally, moves all extremities and awake; no focal motor deficits Psychiatric: A+Ox3, euthymic affect Results & Data Results & Data ([facility]) Vital Signs (Past 12 Hours) Vital Signs Temp Pulse Pulse Resp BP Pulse Ox 02/23/21 11:07 36.7 C 67 20 112/50 L 97 02/23/21 08:00 74 02/23/21 07:13 36.9 C 73 20 132/73 98 02/23/21 03:39 36.6 C 18 147/68 H 99 02/22/21 23:59 80 02/22/21 23:14 37.0 C 78 19 147/58 H 94 Laboratory Results Laboratory Results - last 24 hr 02/22/21 02/22/21 02/22/21 11:37 14:56 14:56 WBC RBC Hgb Hct MCV MCH MCHC RDW Std Deviation RDW Coeff of Melba Plt Count MPV Absolute Nucleated RBC Nucleated RBC % (auto) Platelet Estimate Sodium 144 Potassium 3.7 Chloride 108 H Carbon Dioxide 31 Anion Gap 5.0 BUN 19 H Creatinine 1.06 Est Cr Clr Drug Dosing 83.2 Est GFR ( Amer) 78.6 Est GFR (Non-Af Amer) 67.8 BUN/Creatinine Ratio 17.7 Glucose 97 POC Glucose 114 H Calcium 7.9 L Phosphorus 3.2 D Magnesium 2.1 Total Bilirubin AST ALT Alkaline Phosphatase Total Protein Albumin Globulin Albumin/Globulin Ratio 02/22/21 02/22/21 02/22/21 16:16 20:21 23:46 WBC RBC Hgb Hct MCV MCH MCHC RDW Std Deviation RDW Coeff of Melba Plt Count MPV Absolute Nucleated RBC Nucleated RBC % (auto) Platelet Estimate Sodium Potassium Chloride Carbon Dioxide Anion Gap BUN Creatinine Est Cr Clr Drug Dosing Est GFR ( Amer) Est GFR (Non-Af Amer) BUN/Creatinine Ratio Glucose POC Glucose 131 H 102 H 102 H Calcium Phosphorus Magnesium Total Bilirubin AST ALT Alkaline Phosphatase Total Protein Albumin Globulin Albumin/Globulin Ratio 02/23/21 02/23/21 02/23/21 04:20 06:56 06:56 WBC Cancelled RBC Cancelled Hgb Cancelled Hct Cancelled MCV Cancelled MCH Cancelled MCHC Cancelled RDW Std Deviation Cancelled RDW Coeff of Melba Cancelled Plt Count Cancelled MPV Cancelled Absolute Nucleated RBC Cancelled Nucleated RBC % (auto) Cancelled Platelet Estimate Cancelled Sodium 146 H Potassium 3.4 L Chloride 111 H Carbon Dioxide 32 Anion Gap 3.0 BUN 16 Creatinine 0.87 Est Cr Clr Drug Dosing 94.4 Est GFR ( Amer) 97.2 Est GFR (Non-Af Amer) 83.8 BUN/Creatinine Ratio 18.2 Glucose 79 POC Glucose 94 Calcium 7.0 L Phosphorus 3.3 Magnesium 1.9 Total Bilirubin 0.5 AST 31 ALT 26 Alkaline Phosphatase 24 L Total Protein 2.6 L Albumin 1.4 L Globulin 1.2 L Albumin/Globulin Ratio 1.1 02/23/21 02/23/21 07:22 07:49 WBC 17.80 H RBC 2.71 L Hgb 8.9 L Hct 28.2 L MCV 104.1 H MCH 32.8 MCHC 31.6 L RDW Std Deviation 61.8 H RDW Coeff of Melba 17.7 H Plt Count 206 MPV 9.8 Absolute Nucleated RBC 0.43 H Nucleated RBC % (auto) 2.4 Platelet Estimate Sodium Potassium Chloride Carbon Dioxide Anion Gap BUN Creatinine Est Cr Clr Drug Dosing Est GFR ( Amer) Est GFR (Non-Af Amer) BUN/Creatinine Ratio Glucose POC Glucose 93 Calcium Phosphorus Magnesium Total Bilirubin AST ALT Alkaline Phosphatase Total Protein Albumin Globulin Albumin/Globulin Ratio Microbiology 02/17/21 16:24 Blood Aerobic Blood Culture - Final No growth in Aerobic bottle after 5 days. 02/17/21 16:24 Blood Anaerobic Blood Culture - Final 02/17/21 16:24 Blood Aerobic Blood Culture - Final No growth in Aerobic bottle after 5 days. 02/17/21 16:24 Blood Anaerobic Blood Culture - Final No growth in Anaerobic bottle after 5 days. 02/17/21 12:32 Blood Aerobic Blood Culture - Final No growth in Aerobic bottle after 5 days. 02/17/21 12:32 Blood Anaerobic Blood Culture - Final No growth in Anaerobic bottle after 5 days. 02/19/21 08:17 Blood Aerobic Blood Culture - Preliminary No growth in Aerobic bottle after 48 hours. 02/19/21 08:17 Blood Anaerobic Blood Culture - Preliminary No growth in Anaerobic bottle after 48 hours. 02/19/21 08:28 Blood Aerobic Blood Culture - Preliminary No growth in Aerobic bottle after 48 hours. 02/19/21 08:28 Blood Anaerobic Blood Culture - Preliminary No growth in Anaerobic bottle after 48 hours. 02/17/21 11:51 Blood Aerobic Blood Culture - Final Coag neg staph not lugdunensis 02/17/21 11:51 Blood Anaerobic Blood Culture - Final 02/17/21 20:21 Urine,Indwelling Cath Urine Culture - Final No growth - less than 1,000 colonies/mL. Medications Administered Current Inpatient Medications Acetaminophen (Acetaminophen 325 Mg Tab) 650 mg PO Q4H PRN PRN Reason: Pain or Fever Stop: 03/19/21 16:05 Last Admin: 02/23/21 08:58 Dose: 650 mg Documented by: Albuterol (Albut/Ipratrop 3mg/0.5mg Neb 3 Ml Vial) 3 ml NEB QIDR PRN PRN Reason: Shortness Of Breath Or Wheezing Stop: 03/19/21 16:05 Aripiprazole (Aripiprazole 5 Mg Tab) [facility] [place] [place] Stop: 03/20/21 08:59 Last Admin: 02/23/21 09:24 Dose: 5 mg Documented by: Bupropion HCl (Bupropion Sr 100 Mg Tabcr) 100 mg PO QAM [facility] Stop: 03/20/21 08:59 Last Admin: 02/23/21 09:24 Dose: 100 mg Documented by: Cyanocobalamin (Cyanocobalamin 500 Mcg Tablet (Vitamin B-12)) 1,000 mcg PO QAM [facility] Stop: 03/20/21 08:59 Last Admin: 02/23/21 09:24 Dose: 1,000 mcg Documented by: Folic Acid (Folic Acid 1 Mg Tab) 1 mg PO QAM [facility] Stop: 03/20/21 08:59 Last Admin: 02/23/21 09:24 Dose: 1 mg Documented by: Ampicillin Sodium 2,000 mg/ (Sodium Chloride) 100 mls @ 200 mls/hr IV Q4 [facility]; Protocol Stop: 03/01/21 11:59 Last Infusion: 02/23/21 10:03 Dose: Infused Documented by: Dextrose (D5w) 1,000 mls @ 40 mls/hr IV .Q24H [facility] Stop: 03/22/21 07:44 Last Admin: 02/22/21 09:08 Dose: Not Given Documented by: Furosemide 40 mg/ Syringe 4 mls @ 4 mls/min IV DAILY [facility] Stop: 03/23/21 08:59 Last Admin: 02/23/21 09:23 Dose: 4 mls/min Documented by: Vancomycin HCl 1,000 mg/ (Sodium Chloride) 270 mls @ 200 mls/hr IV Q12H [facility] Stop: 02/24/21 23:59 Last Infusion: 02/23/21 03:54 Dose: Infused Documented by: Insulin Aspart (Insulin Aspart 100 Units/Ml 3 Ml Pen) 0 units SC Q4 [facility] Stop: 03/20/21 15:59 Last Admin: 02/23/21 08:50 Dose: Not Given Documented by: Metoprolol Tartrate (Metoprolol Tartrate 25 Mg Tab) 25 mg PO BID [facility] Stop: 03/19/21 20:59 Last Admin: 02/23/21 09:23 Dose: 25 mg Documented by: Miscellaneous Information (Vancomycin Consult Active) 1 ea N/A UD PRN PRN Reason: Consult Stop: 03/19/21 16:05 Ondansetron HCl (Ondansetron Inj 2 Mg/Ml 2 Ml Vial) 4 mg IV Q6H PRN PRN Reason: Nausea Stop: 03/19/21 16:05 Pantoprazole Sodium (Pantoprazole 40 Mg Tab) 40 mg PO BID [facility] Stop: 03/24/21 08:59 Last Admin: 02/23/21 09:24 Dose: 40 mg Documented by: Potassium Chloride (Potassium Chloride Crtab 20 Meq Tabcr) 20 meq PO BID [facility] Stop: 03/25/21 20:59 Prednisone (Prednisone 10 Mg Tablet) 10 mg PO DAILY [facility] Stop: 03/24/21 08:59 Last Admin: 02/23/21 09:24 Dose: 10 mg Documented by: Simvastatin (Simvastatin 40 Mg Tab) 40 mg PO QPM [facility] Stop: 03/19/21 20:59 Last Admin: 02/22/21 21:45 Dose: 40 mg Documented by: Spironolactone (Spironolactone 25 Mg Tab) 50 mg PO BID17 [facility] Stop: 03/19/21 16:59 Last Admin: 02/17/21 18:13 Dose: Not Given Documented by: Tamsulosin HCl (Tamsulosin Hcl 0.4 Mg Cap) 0.4 mg PO QAM [facility] Stop: 03/20/21 08:59 Last Admin: 02/18/21 08:02 Dose: Not Given Documented by: Venlafaxine HCl (Venlafaxine Hcl Xr 75 Mg Capxr) 225 mg PO QAM [facility] Stop: 03/20/21 08:59 Last Admin: 02/23/21 09:24 Dose: 225 mg Documented by: Vitamin D (Cholecalciferol 400 Units 10 Mcg Tab) 800 units PO QAM [facility] Stop: 03/20/21 08:59 Last Admin: 02/23/21 09:23 Dose: 800 units Documented by: PG Care Time/CCT Total # of Minutes Spent Total Time Spent with Patient: Total time spent is greater than 50% in coordination of care (as documented) at patient's floor/unit and/or counseling patient: Coding Level of Care Code 81015 Subseq Hosp Care Lvl 3 Diagnoses Sepsis A41.9 Sepsis acute organ dysfunction status: unspecified Sepsis type: sepsis due to unspecified organism Acute blood loss anemia D62 Acute respiratory failure with hypoxia J96.01 KAYKAY (acute kidney injury) N17.9 Acute metabolic encephalopathy G93.41 Chronic obstructive pulmonary disease J44.9 COPD type: unspecified COPD Hypertension I10 Temporal arteritis M31.6 Dyslipidemia E78.5 Hypokalemia E87.6 (1) Sepsis Sepsis acute organ dysfunction status: unspecified Sepsis type: sepsis due to unspecified organism Qualified Code(s): A41.9 - Sepsis, unspecified organism (2) Chronic obstructive pulmonary disease COPD type: unspecified COPD Qualified Code(s): J44.9 - Chronic obstructive pulmonary disease, unspecified
[2021-02-23] MEDS ORDERED: VANCOMYCIN TROUGH ONE (13:30)
[2021-02-23] MEDS ORDERED: OPTIRAY 320 100ml IV ONE (15:46)
--- NOTE | 2021-02-23 15:53 | Pharmacy Report ---
Pharmacy Abx Dose Short Note - Date of Service February 23, 2021 - Assessment & Plan Assessment 75 year old M receiving Vancomycin 1000 mg IV q12h for treatment of possible Meningitis. Day #7 of antimicrobial therapy. Renal function stable. Trough level obtain before dose today at 2 pm was 18.7 mcg/ml. Plan Vancomycin * Trough level of 18.7 mcg/mL is therapeutic. * Continue dose of 1000 mg IV every 12 hours * Goal trough level for Meningitis: 15 to 20 mcg/mL Pharmacy will continue to follow and will adjust dose/frequency as necessary. Thank you.
--- NOTE | 2021-02-23 16:06 | CT Scan Report ---
CT facial bones w con HISTORY: 75 years-old Male broken teeth, abscess? presented with sepsis acute facial injury with sep sis COMPARISON: Head CT 02/17/2021 TECHNIQUE: Multiple axial CT images of the maxillofacial bones were obtained following the intravenou s ministration of 94 mm Optiray 320. A dose lowering technique was used consistent with the principal s of KALEY. FINDINGS: Streak artifact from dental amalgam hardware limits the study. No acute process of the imaged intracr anial structures. Age-related involutional changes. White matter hypodensities suggestive of chronic microvascular ischemic disease. Mixed plaque of the carotid bulbs and proximal cervical segments of t he internal carotid arteries. The bilateral globes, orbits and soft tissues are unremarkable. No sign ificant soft tissue swelling or drainable fluid collection. There is no adenopathy. Parotid and subma ndibular glands are unremarkable. Patent airway. The epiglottis is not imaged. Advanced multilevel de generative changes of the imaged cervical spine. Numerous dental caries. Unerupted bilateral mandibul ar and right maxillary third molars. Questioned fractures involving the distal aspects of the mandibu lar central incisors. No large periapical cysts. Numerous root canals. Left mandibular dental implant . IMPRESSION: 1. Streak artifact from dental amalgam hardware limits evaluation of the oral cavity. Dental caries a re noted without associated periapical cysts. 2. No significant inflammatory inflammatory changes, fluid collection or adenopathy. 3. Moderate atherosclerosis of the carotid bulbs. ACT 112: Negative or not required by law. The above report was generated using voice recognition software. It may contain grammatical, syntax o r spelling errors. Electronically signed by: Addy Larose M.D. 02/23/2021 4:05 PM
[2021-02-23] MEDS: SIMVASTATIN 40 MG TAB PO SCH (21:19)
[2021-02-24] MEDS: AMPICILLIN 2,000 MG in SODIUM CHLOR 0.9% AD-VAN 100 ML IV SCH ×6 (00:24→19:51)
[2021-02-24] MEDS: INSULIN ASPART 100 UNITS/ML 3 ML PEN SC SCH ×5 (00:25→19:57)
[2021-02-24] MEDS: VANCOMYCIN HCL 1,000 MG in SODIUM CHLORIDE 0.9% 250 ML IV SCH ×2 (01:52→13:31)
[2021-02-24 07:07] LABS: Hemoglobin 8.4 g/dL (14.0-18.0); Mean Corpuscular Hemoglobin 32.9 pg (25-34); Mean Corpuscular Hgb Conc 32.3 g/dL (32-36); Mean Platelet Volume 9.7 fL (7.4-10.4); Nucleated RBC # (auto) 0.17 K/uL (0-0); Nucleated RBC % (auto) 1.1 %; Platelet Count 183 K/uL (130-400); RDW Coefficient of Variation 17.7 % (11.5-14.5); Red Blood Count 2.55 M/uL (4.7-6.1); White Blood Count 16.09 K/uL (4.8-10.8)
[2021-02-24 07:35] LABS: BUN Creatinine Ratio 15.4 (10-20); Calcium 7.9 mg/dl (8.5-10.1); Creatinine Clr Calc Pharmacy 92.3 ml/min; Est GFR (African American) 96.3 ml/min; Est GFR (Non-African American) 83.1 ml/min; Potassium 3.5 mmol/L (3.5-5.1)
[2021-02-24] MEDS: CHOLECALCIFEROL 400 UNITS 10 MCG TAB PO SCH (09:10)
[2021-02-24] MEDS: CYANOCOBALAMIN 500 MCG TABLET (VITAMIN B-12) PO SCH (09:10)
[2021-02-24] MEDS: predniSONE 10 MG TABLET PO SCH (09:10)
[2021-02-24] MEDS: FOLIC ACID 1 MG TAB PO SCH (09:10)
[2021-02-24] MEDS: buPROPion SR 100 MG TABCR PO SCH (09:10)
[2021-02-24] MEDS: METOPROLOL TARTRATE 25 MG TAB PO SCH ×2 (09:11→19:55)
[2021-02-24] MEDS: PANTOprazole 40 MG TAB PO SCH ×2 (09:11→19:56)
[2021-02-24] MEDS: POTASSIUM CHLORIDE CRTAB 20 MEQ TABCR PO SCH ×2 (09:11→15:53)
[2021-02-24] MEDS: ARIPiprazole 5 MG TAB PO SCH (09:11)
[2021-02-24] MEDS: VENLAFAXINE HCL XR 75 MG CAPXR PO SCH (09:12)
[2021-02-24] MEDS: FUROSEMIDE 40 MG in SYRINGE 0 ML IV SCH (09:12)
[2021-02-24 10:31] LABS: Lyme Ab IgG w/WB Rflx Negative (Negative); Lyme Ab IgM w/WB Rflx Negative (Negative)
--- NOTE | 2021-02-24 13:39 | Pharmacy Report ---
Pharmacy Vanc AUC Short Note - Date of Service February 19, 2021 - Assessment & Plan Assessment 75 year old M receiving vancomycin, ampicillin, ceftriaxone for treatment of possible meningitis, unable to get LP today. Pertinent microbiologic data includes: 1/ initial blood culture growing CoNS. Likely contaminant. Renal function is rapidly changing, thus regimen (initially 1500mg IV q24 after 2500mg loading dose) altered significantly already. Will continue to monitor with levels as needed. Day # 3 of antimicrobial therapy. Plan Vancomycin * AUC/DEE DEE is the preferred PK/PD target for vancomycin * AUC guided dosing is effective and associated with decreased risk of nephrotoxicity compared to traditional trough targets * Trough level of 10.1 mcg/mL is not predicted to achieve target AUC/DEE DEE of 400- 600 mg/L.hr * Change to 1250 mg IV every 12 hours. Predicted trough level of 18.4 mcg/mL is predicted to achieve target AUC/DEE DEE of 400-600 mg/L.hr and may be associated with a 15 % risk of nephrotoxicity * Trough or random level ordered for:order as clinically indicated, monitor with changing renal function Pharmacy will continue to follow and will adjust dose/frequency as necessary. Thank you.
--- NOTE | 2021-02-24 13:39 | Pharmacy Report ---
Pharmacy Vanc AUC Short Note - Date of Service February 18, 2021 - Assessment & Plan Assessment 75 year old M receiving vanc and zosyn for treatment of intraabdominal infection/ meningitis. zosyn changed to ceftriaxone, Flagyl, and ampicillin added for better PULLER OVER coverage . Day # 2 of antimicrobial therapy. Plan Vancomycin * AUC/DEE DEE is the preferred PK/PD target for vancomycin * AUC guided dosing is effective and associated with decreased risk of nephrotoxicity compared to traditional trough targets * Predicted Trough level of 19.1 mcg/mL is predicted to achieve target AUC/DEE DEE of 400-600 mg/L.hr and may be associated with a 44 % risk of nephrotoxicity * Loading dose of 2500 mg IV administered yesterday @1300 then to 1500 mg IV every 24 hours starting today @1200 * Trough or random level ordered for:will reassess renal function tomorrow and order levels as needed Pharmacy will continue to follow and will adjust dose/frequency as necessary. Thank you.
--- NOTE | 2021-02-24 14:07 | Hospitalist Progress Note ---
Date of Service February 24, 2021 Assessment & Plan (1) Sepsis: suspected but no source ever found. all cultures negative. completed 7-day course of Ampicillin/Vancomycin as LP was attempted to r/o POLL WATCHER infection but LP unsuccessful. can stop IV abx today. WBC count continues to trend down. To be complete checked Lyme screen and this returned negative. viral etiology? other? (2) Acute on chronic diastolic (congestive) heart failure: cont to diurese well with stable BMP cont IV lasix usually takes lasix/aldactone chronically at home cont BB (3) Acute blood loss anemia: Hemoglobin dropped to 6.1 on 02/18, transfused two units. H/H slowly trending down. etiology?? check Fe studies, b12, folate in am. s/p EGD this admission with normal esophagus, stomach, duodenum. on imaging earlier this admission had evidence of bleed along psoas muscle - likely traumatic. if H/H cont to fall would reimage. eliquis still on hold (on such for PAF). (4) Macrocytic anemia: worsening over last year. check b12/folate. TSH wnl. etiology?? early MDS?? may need peripheral smear if nutritional labs wnl. (5) Acute respiratory failure with hypoxia: s/p intubation 02/18 (electively to protect airway). was on BIPAP prior. can't rule out that he didn't have COPD exacerbation (did receive stress dose steroids) early in hospitalization. can't rule out decompensated CHF contributing to early admission breathing issues. extubated on 02/21 remains on NC O2 and has been stable. cont diuresis. (6) KAYKAY (acute kidney injury): Cr was 1.8 at peak. Now <1. resolved. (7) Acute metabolic encephalopathy: due to sepsis - resolved (8) Chronic obstructive pulmonary disease: BiPAP initially then ultimately intubated on 02/18. ?COPD flare? ?decompensated CHF? prednisone is now back down to regular chronic dose. cont diuresis. (9) Hypertension: controlled (10) Temporal arteritis: Per previous documentation, patient was on 8 mg of prednisone with methotrexate (11) Dyslipidemia: cont statin (12) Hypokalemia: cont supplementation while on IV lasix (13) Paroxysmal atrial fibrillation: resume eliquis once H/H are shown to be stable NSR today updated pt's son Jacky by phone today mild sore throat -can't rule out mild early thrush with recent steroids/abx -- start magic mouthwash qid Admission and Anticipated Discharge Date Admission Date: February 17, 2021 Subjective tele overnight stable resting in bed comfortably during visit eating fine no dyspnea or orthopnea at rest he offers no new complaints his only recollection before coming to the hospital was that he was short of breath in the 24 hours prior doesn't remember much else still agreeable to rehab c/o mild sore throat x 1-2 days Review of Systems Constitutional: + fatigue; no fever, no chills and no anorexia Respiratory: + dyspnea on exertion (baseline); no cough and no dyspnea Cardiovascular: no chest pain Gastrointestinal: no abdominal pain, no nausea and no vomiting Physical Exam Constitutional: + obese; no acute distress and no altered mental status ENMT: external ear and nose normal, oropharynx normal Respiratory: normal respiratory effort, lungs clear to auscultation Cardiovascular: Rate/Rhythm: regular rate and regular rhythm Heart Sounds: normal S1 and normal S2; no murmur Vessels: posterior tibial pulses present and dorsalis pedis pulses present; no JVD Extremities: no edema Gastrointestinal (Abdomen): normal bowel sounds, soft, nontender, no hepatosplenomegaly Skin: + ecchymosis (scattered on arms ) Psychiatric: A+Ox3, euthymic affect Results & Data Results & Data ([facility]) Vital Signs (Past 12 Hours) Vital Signs Temp Pulse Resp BP Pulse Ox 02/24/21 11:16 36.9 C 67 19 120/78 97 02/24/21 07:14 36.9 C 63 20 117/69 99 02/24/21 03:09 37.0 C 61 20 111/51 L 97 Hb 8.4 WBC count still elevated bmp wnl MCV>100 PG Care Time/CCT Total # of Minutes Spent Total Time Spent with Patient: Total time spent is greater than 50% in co ordination of care (as documented) at patient's floor/unit and/or counseling patient: Coding Level of Care Code 08102 Subseq Hosp Care Lvl 3 Diagnoses Sepsis A41.9 Sepsis acute organ dysfunction status: unspecified Sepsis type: sepsis due to unspecified organism Acute on chronic diastolic (congestive) heart failure I50.33 Acute blood loss anemia D62 Macrocytic anemia D53.9 Acute respiratory failure with hypoxia J96.01 KAYKAY (acute kidney injury) N17.9 Acute metabolic encephalopathy G93.41 Chronic obstructive pulmonary disease J44.9 COPD type: unspecified COPD Hypertension I10 Temporal arteritis M31.6 Dyslipidemia E78.5 Hypokalemia E87.6 Paroxysmal atrial fibrillation I48.0 (1) Sepsis Sepsis acute organ dysfunction status: unspecified Sepsis type: sepsis due to unspecified organism Qualified Code(s): A41.9 - Sepsis, unspecified organism (2) Chronic obstructive pulmonary disease COPD type: unspecified COPD Qualified Code(s): J44.9 - Chronic obstructive pulmonary disease, unspecified
[2021-02-24] MEDS: SIMVASTATIN 40 MG TAB PO SCH (19:55)
[2021-02-25 06:48] LABS: Hematocrit (blood only) 25.7 % (42-52); Mean Corpuscular Hemoglobin 32.5 pg (25-34); Mean Corpuscular Hgb Conc 31.1 g/dL (32-36); Mean Corpuscular Volume 104.5 fL (80-100); Mean Platelet Volume 9.5 fL (7.4-10.4); Nucleated RBC # (auto) 0.06 K/uL (0-0); Nucleated RBC % (auto) 0.4 %; Platelet Count 199 K/uL (130-400); RDW Coefficient of Variation 17.5 % (11.5-14.5); RDW Standard Deviation 64.3 fL (36.4-46.3); Red Blood Count 2.46 M/uL (4.7-6.1); White Blood Count 13.58 K/uL (4.8-10.8)
[2021-02-25 07:21] LABS: BUN Creatinine Ratio 13.6 (10-20); Calcium 8.2 mg/dl (8.5-10.1); Creatinine Clr Calc Pharmacy 101.9 ml/min; Est GFR (African American) 97.6 ml/min; Est GFR (Non-African American) 84.2 ml/min; Potassium 3.8 mmol/L (3.5-5.1)
[2021-02-25 07:57] LABS: Vitamin B12 > 2000 pg/ml (193-986)
[2021-02-25] MEDS: INSULIN ASPART 100 UNITS/ML 3 ML PEN SC SCH ×4 (09:16→21:32)
[2021-02-25] MEDS: METOPROLOL TARTRATE 25 MG TAB PO SCH ×2 (09:53→22:00)
[2021-02-25] MEDS: CYANOCOBALAMIN 500 MCG TABLET (VITAMIN B-12) PO SCH (09:53)
[2021-02-25] MEDS: PANTOprazole 40 MG TAB PO SCH ×2 (09:53→21:59)
[2021-02-25] MEDS: VENLAFAXINE HCL XR 75 MG CAPXR PO SCH (09:53)
[2021-02-25] MEDS: predniSONE 10 MG TABLET PO SCH (09:53)
[2021-02-25] MEDS: CHOLECALCIFEROL 400 UNITS 10 MCG TAB PO SCH (09:54)
[2021-02-25] MEDS: POTASSIUM CHLORIDE CRTAB 20 MEQ TABCR PO SCH ×2 (09:55→17:49)
[2021-02-25] MEDS: FUROSEMIDE 40 MG in SYRINGE 0 ML IV SCH (09:55)
[2021-02-25] MEDS: FOLIC ACID 1 MG TAB PO SCH (09:55)
[2021-02-25] MEDS: buPROPion SR 100 MG TABCR PO SCH (09:55)
[2021-02-25] MEDS: ARIPiprazole 5 MG TAB PO SCH (09:55)
--- NOTE | 2021-02-25 15:58 | CT Scan Report ---
CT pelvis wo con CT DOSE: 1725.65 mGy.cm CLINICAL HISTORY: Decreasing hemoglobin. Left psoas hematoma. TECHNIQUE: Helical images were acquired in the transverse plane. No intravenous contrast was administ ered. A dose lowering technique was utilized adhering to the principles of ALARA. COMPARISON STUDY: 02/18/2021 FINDINGS: There is partial visualization of a 7 mm lower pole left renal calculus. The appendix appears normal. There is no evidence of acute diverticulitis. Atheromatous changes are present within the abdominal aorta. There is no evidence of abdominal aortic aneurysm. There is no free pelvic fluid. There is an indwelling Mendiola catheter present. There is gas within the bladder likely iatrogenic. Prostate brachytherapy seeds are visualized. There is decreased infiltration of the fat anterior to the left psoas muscle. No discrete retroperito ishan hematoma is visualized. No destructive skeletal lesions are visualized. IMPRESSION: 1. No current evidence for a retroperitoneal hematoma. 2. Left-sided nephrolithiasis. ACT 112: Negative or not required by law. Electronically signed by: Zeke Vital M.D. 02/25/2021 3:57 PM
[2021-02-25] MEDS: SIMVASTATIN 40 MG TAB PO SCH (21:59)
--- NOTE | 2021-02-26 00:53 | Hospitalist Progress Note ---
Date of Service February 25, 2021 Assessment & Plan (1) Sepsis: suspected early in hospital stay but no source ever found. all cultures remained negative. completed 7-day course of Ampicillin/Vancomycin as LP was attempted to r/o SURGICAL FIRST ASSISTANT infection but LP unsuccessful. he is now of all abx. WBC count continues to trend down. To be complete checked Lyme screen and this returned negative. viral etiology? other? (2) Acute on chronic diastolic (congestive) heart failure: cont to diurese well with stable BMP cont IV lasix usually takes lasix/aldactone chronically at home cont BB consider resuming aldactone tomorrow (3) Acute blood loss anemia: Hemoglobin dropped to 6.1 on 02/18, transfused two units. H/H slowly trending down once again - today Hb is 8. etiology?? checked Fe studies, b12, folate - wnl. peripheral smear - no features of hemolysis although cannot be ruled out. No leukemic features/no blasts. No obvious MDS. s/p EGD this admission with normal esophagus, stomach, duodenum. on imaging earlier this admission had evidence of bleed along psoas muscle - likely traumatic. given that he has left groin pain will reimage the pelvis to check the left psoas region - r/o worsening bleeding in this location. if negative - GI blood loss (was heme+ on 02/18)?? cbc with retic in am. (4) Macrocytic anemia: b12/folate/tsh wnl. peripheral smear by path today w/o obvious dx. acute blood loss ?? check CT of pelvis - see above. hemolysis labs (LDH, haptoglobin, etc) pending. retic w/ cbc am. (5) Acute respiratory failure with hypoxia: s/p intubation 02/18 (electively to protect airway). was on BIPAP prior. can't rule out that he didn't have COPD exacerbation (did receive stress dose steroids) early in hospitalization. can't rule out decompensated CHF contributing to early admission breathing issues. extubated on 02/21 remains on NC O2 and has been stable. cont diuresis. (6) KAYKAY (acute kidney injury): Cr was 1.8 at peak. Now <1. resolved. (7) Acute metabolic encephalopathy: due to sepsis - resolved (8) Chronic obstructive pulmonary disease: BiPAP initially then ultimately intubated on 02/18. ?COPD flare? ?decompensated CHF? prednisone is now back down to regular chronic dose. cont diuresis. (9) Hypertension: controlled (10) Temporal arteritis: Per previous documentation, patient was on 8 mg of prednisone with methotrexate Cont both (11) Dyslipidemia: cont statin (12) Hypokalemia: cont supplementation (13) Paroxysmal atrial fibrillation: cont to hold eliquis cont metoprolol tartrate 25mg BID Admission and Anticipated Discharge Date Admission Date: February 17, 2021 Subjective patient sitting in chair multiple questions about his hospital stay c/o mild left groin pain with moving/activity denies dyspnea - states it is "much better" than previous eating decently no obvious blood in the stool tele - NSR overnight Review of Systems Constitutional: + fatigue and + weakness; no fever, no chills and no anorexia Respiratory: + dyspnea on exertion (but improving ); no cough Cardiovascular: no chest pain and no orthopnea Gastrointestinal: no abdominal pain Physical Exam Constitutional: + obese; no acute distress and no altered mental status ENMT: external ear and nose normal, oropharynx normal Respiratory: normal respiratory effort, lungs clear to auscultation Cardiovascular: Rate/Rhythm: regular rate and regular rhythm Heart Sounds: normal S1 and normal S2; no murmur Vessels: posterior tibial pulses present and dorsalis pedis pulses present; no JVD Extremities: no edema Gastrointestinal (Abdomen): normal bowel sounds, soft, nontender, no hepatosplenomegaly Musculoskeletal: mild left groin pain with passive flexion of left leg Skin: + ecchymosis (scattered on arms ) Psychiatric: A+Ox3, euthymic affect Results & Data Results & Data ([facility]) Vital Signs (Past 12 Hours) Vital Signs Temp Pulse Pulse Resp BP Pulse Ox 02/25/21 23:59 81 02/25/21 23:19 36.9 C 71 20 115/56 L 98 02/25/21 19:56 37.2 C 81 22 111/59 L 94 02/25/21 16:00 70 Laboratory Results Laboratory Results - last 24 hr 02/25/21 02/25/21 02/25/21 06:25 06:25 06:25 WBC 13.58 H RBC 2.46 L Hgb 8.0 L Hct 25.7 L MCV 104.5 H MCH 32.5 MCHC 31.1 L RDW Std Deviation 64.3 H RDW Coeff of Melba 17.5 H Plt Count 199 MPV 9.5 Absolute Nucleated RBC 0.06 H Nucleated RBC % (auto) 0.4 Peripher Smr Path Cons Haptoglobin Sodium 143 Potassium 3.8 Chloride 107 Carbon Dioxide 34 H Anion Gap 2.0 L BUN 12 Creatinine 0.86 Est Cr Clr Drug Dosing 101.9 Est GFR ( Amer) 97.6 Est GFR (Non-Af Amer) 84.2 BUN/Creatinine Ratio 13.6 Glucose 85 POC Glucose Calcium 8.2 L Iron 48 Transferrin 176 L Transferrin % Sat 19 L Ferritin 163.0 Lactate Dehydrogenase Vitamin B12 > 2000 H Folate 17.10 Direct Antiglob Test JAMES (IgG-AHG) JAMES, Polyspecific JAMES C3b, C3d 5 Min 02/25/21 02/25/21 02/25/21 07:12 10:53 10:53 WBC RBC Hgb Hct MCV MCH MCHC RDW Std Deviation RDW Coeff of Melba Plt Count MPV Absolute Nucleated RBC Nucleated RBC % (auto) Peripher Smr Path Cons Haptoglobin Sodium Potassium Chloride Carbon Dioxide Anion Gap BUN Creatinine Est Cr Clr Drug Dosing Est GFR ( Amer) Est GFR (Non-Af Amer) BUN/Creatinine Ratio Glucose POC Glucose 148 H Calcium Iron Transferrin Transferrin % Sat Ferritin Lactate Dehydrogenase 374 H Vitamin B12 Folate Direct Antiglob Test Negative JAMES (IgG-AHG) Neg JAMES, Polyspecific Neg JAMES C3b, C3d 5 Min Neg 02/25/21 02/25/21 02/25/21 10:53 10:53 11:17 WBC RBC Hgb Hct MCV MCH MCHC RDW Std Deviation RDW Coeff of Melba Plt Count MPV Absolute Nucleated RBC Nucleated RBC % (auto) Peripher Smr Path Cons Haptoglobin Pending Sodium Potassium Chloride Carbon Dioxide Anion Gap BUN Creatinine Est Cr Clr Drug Dosing Est GFR ( Amer) Est GFR (Non-Af Amer) BUN/Creatinine Ratio Glucose POC Glucose 106 H Calcium Iron Transferrin Transferrin % Sat Ferritin Lactate Dehydrogenase Vitamin B12 Folate Direct Antiglob Test JAMES (IgG-AHG) JAMES, Polyspecific JAMES C3b, C3d 5 Min 02/25/21 02/25/21 16:16 20:05 WBC RBC Hgb Hct MCV MCH MCHC RDW Std Deviation RDW Coeff of Melba Plt Count MPV Absolute Nucleated RBC Nucleated RBC % (auto) Peripher Smr Path Cons Haptoglobin Sodium Potassium Chloride Carbon Dioxide Anion Gap BUN Creatinine Est Cr Clr Drug Dosing Est GFR ( Amer) Est GFR (Non-Af Amer) BUN/Creatinine Ratio Glucose POC Glucose 118 H 102 H Calcium Iron Transferrin Transferrin % Sat Ferritin Lactate Dehydrogenase Vitamin B12 Folate Direct Antiglob Test JAMES (IgG-AHG) JAMES, Polyspecific JAMES C3b, C3d 5 Min PG Care Time/CCT Total # of Minutes Spent Total Time Spent with Patient: Total time spent is greater than 50% in coordination of care (as documented) at patient's floor/unit and/or counseling patient: Coding Level of Care Code 30348 Subseq Hosp Care Lvl 3 Diagnoses Sepsis A41.9 Sepsis acute organ dysfunction status: unspecified Sepsis type: sepsis due to unspecified organism Acute on chronic diastolic (congestive) heart failure I50.33 Acute blood loss anemia D62 Macrocytic anemia D53.9 Acute respiratory failure with hypoxia J96.01 KAYKAY (acute kidney injury) N17.9 Acute metabolic encephalopathy G93.41 Chronic obstructive pulmonary disease J44.9 COPD type: unspecified COPD Hypertension I10 Temporal arteritis M31.6 Dyslipidemia E78.5 Hypokalemia E87.6 Paroxysmal atrial fibrillation I48.0 (1) Sepsis Sepsis acute organ dysfunction status: unspecified Sepsis type: sepsis due to unspecified organism Qualified Code(s): A41.9 - Sepsis, unspecified organism (2) Chronic obstructive pulmonary disease COPD type: unspecified COPD Qualified Code(s): J44.9 - Chronic obstructive pulmonary disease, unspecified
[2021-02-26 07:37] LABS: Hematocrit (blood only) 25.9 % (42-52); Hemoglobin 8.3 g/dL (14.0-18.0); Mean Corpuscular Hemoglobin 33.2 pg (25-34); Mean Corpuscular Volume 103.6 fL (80-100); Mean Platelet Volume 9.8 fL (7.4-10.4); Nucleated RBC # (auto) 0.02 K/uL (0-0); Nucleated RBC % (auto) 0.2 %; Platelet Count 221 K/uL (130-400); RDW Coefficient of Variation 17.5 % (11.5-14.5); RDW Standard Deviation 63.4 fL (36.4-46.3); Reticulocyte % 7.6 % (0.5-2.0); Reticulocytes # 0.19 10^6/uL (0.02-0.10); White Blood Count 11.74 K/uL (4.8-10.8)
[2021-02-26 08:08] LABS: BUN Creatinine Ratio 12.8 (10-20); Calcium 8.5 mg/dl (8.5-10.1); Creatinine Clr Calc Pharmacy 85.5 ml/min; Est GFR (African American) 88.6 ml/min; Est GFR (Non-African American) 76.5 ml/min; Potassium 3.8 mmol/L (3.5-5.1)
[2021-02-26] MEDS: FOLIC ACID 1 MG TAB PO SCH (08:36)
[2021-02-26] MEDS: CYANOCOBALAMIN 500 MCG TABLET (VITAMIN B-12) PO SCH (08:36)
[2021-02-26] MEDS: buPROPion SR 100 MG TABCR PO SCH (08:36)
[2021-02-26] MEDS: PANTOprazole 40 MG TAB PO SCH ×2 (08:36→20:01)
[2021-02-26] MEDS: CHOLECALCIFEROL 400 UNITS 10 MCG TAB PO SCH (08:36)
[2021-02-26] MEDS: FUROSEMIDE 40 MG in SYRINGE 0 ML IV SCH (08:36)
[2021-02-26] MEDS: ARIPiprazole 5 MG TAB PO SCH (08:36)
[2021-02-26] MEDS: predniSONE 10 MG TABLET PO SCH (08:36)
[2021-02-26] MEDS: VENLAFAXINE HCL XR 75 MG CAPXR PO SCH (08:36)
[2021-02-26] MEDS: POTASSIUM CHLORIDE CRTAB 20 MEQ TABCR PO SCH ×2 (08:36→17:28)
[2021-02-26] MEDS: METOPROLOL TARTRATE 25 MG TAB PO SCH ×2 (08:36→20:02)
[2021-02-26] MEDS: INSULIN ASPART 100 UNITS/ML 3 ML PEN SC SCH ×4 (08:37→20:01)
[2021-02-26] MEDS: SIMVASTATIN 40 MG TAB PO SCH (20:01)
--- NOTE | 2021-02-26 23:00 | Hospitalist Progress Note ---
Date of Service February 26, 2021 Assessment & Plan (1) Sepsis: Plan: suspected at admission - no bacterial or viral source ever found; lyme negative wbc count has normalized s/p 7-day course of IV antibiotics (given empirically given severity of illness) ?addisonian component given chronic prednisone use? ?GI bleeding contributing to severity of illness? (2) Acute on chronic diastolic (congestive) heart failure: Plan: appears near euvolemic today (3) Acute blood loss anemia: Plan: Hb ~15 in December 2020 Hb ~11.5 at admission dropped to <7 within 36 hrs of admission s/p 2 units PRBCs in response to that drop s/p EGD - no GI source of bleed found stool was heme + earlier this stay H/H slowly drifting last [address] did NOT show retroperitoneal hematoma or psoas hematoma as source of bleeding iron studies wnl b12/folate wnl retic 7% LDH elevated haptoglobin pending trung neg peripheral smear w/o leukemic features hemolytic component? ongoing, smoldering GI bleeding (occult)? (4) Macrocytic anemia: Plan: b12/folate/tsh wnl no liver disease 2nd to immatures RBCs? (5) Acute respiratory failure with hypoxia: Plan: resolved (6) KAYKAY (acute kidney injury): Plan: resolved (7) Acute metabolic encephalopathy: Plan: resolved (8) Chronic obstructive pulmonary disease: Plan: stable controlled (9) Hypertension: Plan: controlled (10) Temporal arteritis: (11) Dyslipidemia: (12) Hypokalemia: Plan: resolved (13) Paroxysmal atrial fibrillation: Plan: none seen on tele apixaban has been on hold due to ?GI bleed & anemia Plan: 1. repeat cbc, bmp am 2. d/c thorne today 3. d/c lasix IV 4. formal consult placed to Dr Gray, hematology 5. cont magic mouthwash for sore throat (trauma from recent intubation) 6. resume lasix 7. cont prednisone daily for TA If any further drop in H/H -- bleeding scan and/or reconsult GI Jacky - son - updated by phone this evening Admission and Anticipated Discharge Date Admission Date: February 17, 2021 Subjective no new complaints today breathing is near baseline eating well denies pain in any location no overt GI bleeding noted by patient tele overnight wnl Review of Systems Constitutional: + fatigue (but improving ) Cardiovascular: no chest pain, no orthopnea and no edema Gastrointestinal: no abdominal pain, no nausea and no vomiting Physical Exam Constitutional: + obese; no acute distress and no altered mental status ENMT: Mouth: + oropharynx abnormality (erythema w/ a large ulceration posteriorly) Respiratory: normal respiratory effort, lungs clear to auscultation Auscultation: no crackles and no wheezes Cardiovascular: Rate/Rhythm: regular rate and regular rhythm Heart Sounds: normal S1 and normal S2; no murmur Vessels: posterior tibial pulses present and dorsalis pedis pulses present; no JVD Extremities: no edema Gastrointestinal (Abdomen): normal bowel sounds, soft, nontender, no hepatosplenomegaly Skin: + ecchymosis (scattered on arms ) Psychiatric: A+Ox3, euthymic affect Genitourinary: thorne in place Results & Data Results & Data ([facility]) Vital Signs (Past 12 Hours) Vital Signs Temp Pulse Pulse Resp BP Pulse Ox 02/26/21 19:20 36.9 C 79 18 115/59 L 96 02/26/21 16:00 67 02/26/21 15:13 36.8 C 67 14 106/46 L 98 02/26/21 11:13 36.6 C 79 19 121/71 97 Laboratory Results Laboratory Results - last 24 hr 02/25/21 02/26/21 02/26/21 10:53 07:05 07:05 WBC 11.74 H RBC 2.50 L Hgb 8.3 L Hct 25.9 L MCV 103.6 H MCH 33.2 MCHC 32.0 RDW Std Deviation 63.4 H RDW Coeff of Melba 17.5 H Plt Count 221 MPV 9.8 Reticulocyte % (Auto) 7.6 H Reticulocyte # 0.19 H Absolute Nucleated RBC 0.02 H Nucleated RBC % (auto) 0.2 Haptoglobin 99 Sodium 142 Potassium 3.8 Chloride 105 Carbon Dioxide 34 H Anion Gap 3.0 BUN 12 Creatinine 0.96 Est Cr Clr Drug Dosing 85.5 Est GFR ( Amer) 88.6 Est GFR (Non-Af Amer) 76.5 BUN/Creatinine Ratio 12.8 Glucose 77 POC Glucose Calcium 8.5 02/26/21 02/26/21 02/26/21 07:17 10:44 16:01 WBC RBC Hgb Hct MCV MCH MCHC RDW Std Deviation RDW Coeff of Melba Plt Count MPV Reticulocyte % (Auto) Reticulocyte # Absolute Nucleated RBC Nucleated RBC % (auto) Haptoglobin Sodium Potassium Chloride Carbon Dioxide Anion Gap BUN Creatinine Est Cr Clr Drug Dosing Est GFR ( Amer) Est GFR (Non-Af Amer) BUN/Creatinine Ratio Glucose POC Glucose 91 117 H 107 H Calcium 02/26/21 19:57 WBC RBC Hgb Hct MCV MCH MCHC RDW Std Deviation RDW Coeff of Melba Plt Count MPV Reticulocyte % (Auto) Reticulocyte # Absolute Nucleated RBC Nucleated RBC % (auto) Haptoglobin Sodium Potassium Chloride Carbon Dioxide Anion Gap BUN Creatinine Est Cr Clr Drug Dosing Est GFR ( Amer) Est GFR (Non-Af Amer) BUN/Creatinine Ratio Glucose POC Glucose 113 H Calcium PG Care Time/CCT Total # of Minutes Spent Total Time Spent with Patient: Total time spent is greater than 50% in coordination of care (as documented) at patient's floor/unit and/or counseling patient: Coding Level of Care Code 54410 Subseq Hosp Care Lvl 3 Diagnoses Sepsis A41.9 Sepsis acute organ dysfunction status: unspecified Sepsis type: sepsis due to unspecified organism Acute on chronic diastolic (congestive) heart failure I50.33 Acute blood loss anemia D62 Macrocytic anemia D53.9 Acute respiratory failure with hypoxia J96.01 KAYKAY (acute kidney injury) N17.9 Acute metabolic encephalopathy G93.41 Chronic obstructive pulmonary disease J44.9 COPD type: unspecified COPD Hypertension I10 Temporal arteritis M31.6 Dyslipidemia E78.5 Hypokalemia E87.6 Paroxysmal atrial fibrillation I48.0 (1) Sepsis Sepsis acute organ dysfunction status: unspecified Sepsis type: sepsis due to unspecified organism Qualified Code(s): A41.9 - Sepsis, unspecified organism (2) Chronic obstructive pulmonary disease COPD type: unspecified COPD Qualified Code(s): J44.9 - Chronic obstructive pulmonary disease, unspecified
[2021-02-27 07:36] LABS: BUN Creatinine Ratio 13.6 (10-20); Calcium 8.7 mg/dl (8.5-10.1); Creatinine Clr Calc Pharmacy 89.6 ml/min; Est GFR (African American) 88.6 ml/min; Est GFR (Non-African American) 76.5 ml/min; Magnesium 2.3 mg/dl (1.8-2.4); Potassium 3.9 mmol/L (3.5-5.1)
[2021-02-27 07:52] LABS: Hematocrit (blood only) 27.8 % (42-52); Hemoglobin 8.3 g/dL (14.0-18.0); Mean Corpuscular Hemoglobin 31.8 pg (25-34); Mean Corpuscular Hgb Conc 29.9 g/dL (32-36); Mean Corpuscular Volume 106.5 fL (80-100); Mean Platelet Volume 9.6 fL (7.4-10.4); Platelet Count 239 K/uL (130-400); RDW Coefficient of Variation 17.1 % (11.5-14.5); RDW Standard Deviation 64.6 fL (36.4-46.3); Red Blood Count 2.61 M/uL (4.7-6.1); White Blood Count 10.94 K/uL (4.8-10.8)
[2021-02-27] MEDS: INSULIN ASPART 100 UNITS/ML 3 ML PEN SC SCH ×4 (08:59→20:19)
[2021-02-27] MEDS: METOPROLOL TARTRATE 25 MG TAB PO SCH ×2 (09:00→20:18)
[2021-02-27] MEDS: TAMSULOSIN HCL 0.4 MG CAP PO SCH (09:00)
[2021-02-27] MEDS: buPROPion SR 100 MG TABCR PO SCH (09:01)
[2021-02-27] MEDS: PANTOprazole 40 MG TAB PO SCH ×2 (09:01→20:18)
[2021-02-27] MEDS: predniSONE 10 MG TABLET PO SCH (09:01)
[2021-02-27] MEDS: FOLIC ACID 1 MG TAB PO SCH (09:01)
[2021-02-27] MEDS: CYANOCOBALAMIN 500 MCG TABLET (VITAMIN B-12) PO SCH (09:01)
[2021-02-27] MEDS: VENLAFAXINE HCL XR 75 MG CAPXR PO SCH (09:01)
[2021-02-27] MEDS: CHOLECALCIFEROL 400 UNITS 10 MCG TAB PO SCH (09:02)
[2021-02-27] MEDS: ARIPiprazole 5 MG TAB PO SCH (09:02)
[2021-02-27] MEDS: POTASSIUM CHLORIDE CRTAB 20 MEQ TABCR PO SCH ×2 (09:02→17:32)
--- NOTE | 2021-02-27 09:06 | Consultation Report ---
HEMATOLOGY CONSULT DATE OF CONSULTATION: 02/27/2021 REASON FOR CONSULTATION: Unexplained fluctuation in hemoglobin. HISTORY OF PRESENT ILLNESS: The patient is a pleasant 75-year-old gentleman who was admitted to [facility] 10 days ago, was found on front lawn of his condominium by neighbors. He ap peared mottled at the time and had significant shortness of breath. He describes an episode leading up to unresponsiveness, of not thinking clearly and not sure if he felt a sense of doom per se, but r emembers very little after that. He was found to be hypotensive in the Emergency Room with associate d tachycardia. Workup in the Emergency Room confirmed an elevated white count and serum lactate with out clear etiology. The patient was placed on BiPAP with improvement of his vital signs and O2 satur ation. ER physician at the time of admission believed there may be a possible adrenal crisis because the patient is known to be on prednisone. He was given both Solu-Medrol and Solu-Cortef along with empiric antibiotics for possible sepsis. The patient is now managed by Dr. Mckinney who alerted me to h is fluctuating hemoglobin. When I inquired about possible bleeding etiologies the patient describes in days leading up to admission of stephanie colored urine he estimates for several days. I reviewed this gentleman's peripheral blood counts, specifically his hemoglobin was 11.9 g/dL on admission. He has received blood products and on the , specifically his hemoglobin had dropped to 6.4. MCV is cons istent with macrocytosis. His reticulocytosis has been robust. There has been no evidence of antibo dy seen on direct Conner. Haptoglobin and LDH are inappropriately normal to suspect an underlying he molysis. Thus, in my estimation blood loss is the leading etiology for his fluctuant hemoglobin екатерина . PAST MEDICAL HISTORY: Positive for degenerative disk disease, esophageal dilatation, history of pros gallardo cancer, nicotine dependence, difficult wound healing, pneumonia, COPD, paroxysmal atrial fibrill ation, obstructive sleep apnea, peripheral neuropathy, history of pancreatitis, oxygen dependent. PAST SURGICAL HISTORY: Status post open left shoulder surgery, tonsillectomy, nasal septoplasty, EGD , cystoscopy, colonoscopy, arthroscopic shoulder surgery, bilateral and history of toe surgery. MEDICATIONS: As follows. Cyanocobalamin 1000 mcg p.o. every day, apixaban 5 mg p.o. b.i.d., aripipr azole 5 mg p.o. every day, cholecalciferol 800 units p.o. every day, furosemide 20 mg p.o. every day, metoprolol 25 mg p.o. b.i.d., potassium chloride 20 mEq p.o. every day, prednisone 10 mg p.o. every day, simvastatin 40 mg p.o. every day, Effexor 150 mg p.o. every day, folic acid 1 mg p.o. every day, oxycodone/acetaminophen 10/325 one tablet every 4 hours p.r.n., bupropion 100 mg p.o. every day, me thotrexate 7.5 mg p.o. daily, spironolactone 50 mg p.o. b.i.d., tamsulosin 0.4 mg p.o. every day. ALLERGIES: No known drug allergies. SOCIAL HISTORY: The patient is retired, lives independently, is a cigarette smoker. He also drinks alcohol. He utilizes medical marijuana as well. REVIEW OF SYSTEMS: As per HPI. Patient was found unresponsive and therefore has no recollection of events leading up to admission. PHYSICAL EXAMINATION: GENERAL: A very pleasant 75-year-old gentleman, awake, alert and appropriate, in no acute distress. VITAL SIGNS: Temperature 36.6, pulse 70, respiratory rate 18, blood pressure 120/60. SKIN: Warm, dry noncyanotic without petechia, rash or ecchymosis. HEENT: Head atraumatic, normocephalic. Eyes: PERRLA, EOMI. Sclerae are nonicteric. No conjunctiv al injection. Nares are patent without rhinorrhea or discharge. Throat clear. Tongue midline. Muc ous membranes are moist. NECK: Supple without JVD or thyromegaly. HEART: Regular rate and rhythm. No clicks, rubs, murmurs or gallops. LUNGS: Clear to auscultation bilaterally. ABDOMEN: Soft, nontender, nondistended, without palpable hepatosplenomegaly. EXTREMITIES: No calf tenderness or swelling. Trace peripheral edema in bilateral lower extremities. Strength and pulses are equal in all 4 quadrants. Neurologically, he is awake, alert and oriented x3. Cranial nerves are grossly intact. LABORATORY DATA: Pending at the time of dictation. IMPRESSION: 1. Acute metabolic encephalopathy. 2. Suspected sepsis. 3. Acute on chronic diastolic heart failure. 4. Acute blood loss anemia. 5. Elevated MCV. 6. COPD. 7. History of temporal arteritis. 8. Hypertension 9. Atrial fibrillation. PLAN: I have been asked by the hospitalist service to investigate this gentleman's fluctuant hemoglo bin during admission. I have reviewed his laboratory since admission. Microcytosis is explained by ongoing reticulocytosis. In essence, normal physiologic response to his faltering hemoglobin. The p atient alludes to kirby Brennen-Aid colored urine days prior to admission. Thus perhaps Urology should investigate a bit further. Unclear if he has had a full GI workup and/or perhaps a bleeding scan ma y prove to be helpful. I am less concerned of a hemolytic event as there is no evidence by antibody, LDH or haptoglobin this gentleman is actively hemolyzing. He is on methotrexate for reasons unclear . Obviously methotrexate can result in cytoreduction across the board. We will follow this gentlema n with you during his stay and perhaps arrange to see him in followup post-discharge. Thank you very much for allowing me to participate in his care. Job ID: [id number]
[2021-02-27] MEDS: FUROSEMIDE 20 MG TAB PO SCH (10:34)
[2021-02-27] MEDS: SPIRONOLACTONE 25 MG TAB PO SCH (10:35)
[2021-02-27] MEDS: SIMVASTATIN 40 MG TAB PO SCH (20:18)
--- NOTE | 2021-02-27 21:14 | Hospitalist Progress Note ---
Date of Service February 27, 2021 Assessment & Plan (1) Sepsis: Plan: suspected at admission - no bacterial or viral source ever found; lyme negative wbc count has normalized s/p 7-day course of IV antibiotics (given empirically given severity of illness) ?addisonian component given chronic prednisone use? ?GI bleeding contributing to severity of illness? no infectious symptoms during the last 3-4 days (2) Acute on chronic diastolic (congestive) heart failure: Plan: resolved off IV diuretics back on low-dose lasix with aldactone which are chronic meds for him (3) Acute blood loss anemia: Plan: Hb ~15 in December 2020 Hb ~11.5 at admission dropped to <7 within 36 hrs of admission s/p 2 units PRBCs in response to that drop s/p EGD - no GI source of bleed found stool was heme + earlier this stay H/H had drifted down, but last 3 days have been about 8.5 robust retic count repeat pelvic CT did NOT show retroperitoneal hematoma or psoas hematoma as source of bleeding iron studies wnl b12/folate wnl retic 7% LDH elevated haptoglobin pending trung neg peripheral smear w/o leukemic features appreciate heme consultation acute anemia thought GI bleed in origin (4) Macrocytic anemia: Plan: b12/folate/tsh wnl no liver disease 2nd to immatures RBCs? (5) Acute respiratory failure with hypoxia: Plan: he is on chronic NC O2 at home at baseline but acute component resolved (6) KAYKAY (acute kidney injury): Plan: resolved (7) Acute metabolic encephalopathy: Plan: resolved (8) Chronic obstructive pulmonary disease: Plan: stable controlled (9) Hypertension: Plan: controlled but BPs low-normal aldactone dose reduced in response to such other meds as is for now (10) Temporal arteritis: (11) Dyslipidemia: (12) Hypokalemia: Plan: resolved (13) Paroxysmal atrial fibrillation: Plan: none seen on tele apixaban has been on hold due to ?GI bleed & anemia Plan: 1. repeat cbc, bmp am 2. cont magic mouthwash for sore throat (trauma from recent intubation) 3. cont prednisone daily for TA 4. normal BP meds and diuretics resumed except aldactone dose is lower spoke with case management - should be able to go to [facility] tomorrow for rehab will need GI f/u for consideration of capsule endo, etc Admission and Anticipated Discharge Date Admission Date: February 17, 2021 Subjective patient without any new complaints still w/ very mild discomfort in the left groin from prior psoas hematoma (very mild) no dyspnea eating well no abdominal pain no overt melena or BRBPR no GERD symptoms tele overnight NSR Review of Systems Constitutional: + weakness; no fever, no body aches and no anorexia Respiratory: + dyspnea on exertion (baseline); no cough and no dyspnea Cardiovascular: no chest pain Gastrointestinal: no abdominal pain, no nausea and no vomiting Genitourinary: no difficulty urinating Physical Exam Constitutional: + obese; no acute distress and no altered mental status ENMT: Mouth: + oropharynx abnormality (erythema w/ a large ulceration posteriorly - improving ) Respiratory: normal respiratory effort, lungs clear to auscultation Auscultation: no crackles and no wheezes Cardiovascular: Rate/Rhythm: regular rate and regular rhythm Heart Sounds: normal S1 and normal S2; no murmur Vessels: posterior tibial pulses present and dorsalis pedis pulses present; no JVD Extremities: no edema Gastrointestinal (Abdomen): normal bowel sounds, soft, nontender, no hepatosplenomegaly Skin: + ecchymosis (scattered on arms ) Neurologic: moves all extremities; no focal motor deficits Psychiatric: A+Ox3, euthymic affect (a little confusion for events, etc at times ) Results & Data Results & Data ([facility]) Vital Signs (Past 12 Hours) Vital Signs Temp Pulse Pulse Resp BP Pulse Ox 02/27/21 19:04 37.2 C 88 18 114/62 92 02/27/21 16:13 37.0 C 61 18 121/53 L 96 02/27/21 16:00 74 02/27/21 11:51 36.9 C 98 H 16 129/64 98 Laboratory Results Laboratory Results - last 24 hr 02/27/21 02/27/21 02/27/21 06:39 06:39 07:41 WBC 10.94 H RBC 2.61 L Hgb 8.3 L Hct 27.8 L MCV 106.5 H MCH 31.8 MCHC 29.9 L RDW Std Deviation 64.6 H RDW Coeff of Melba 17.1 H Plt Count 239 MPV 9.6 Sodium 141 Potassium 3.9 Chloride 104 Carbon Dioxide 37 H Anion Gap 0 L BUN 13 Creatinine 0.96 Est Cr Clr Drug Dosing 89.6 Est GFR ( Amer) 88.6 Est GFR (Non-Af Amer) 76.5 BUN/Creatinine Ratio 13.6 Glucose 81 POC Glucose 95 Calcium 8.7 Magnesium 2.3 02/27/21 02/27/21 02/27/21 11:21 16:32 20:17 WBC RBC Hgb Hct MCV MCH MCHC RDW Std Deviation RDW Coeff of Melba Plt Count MPV Sodium Potassium Chloride Carbon Dioxide Anion Gap BUN Creatinine Est Cr Clr Drug Dosing Est GFR ( Amer) Est GFR (Non-Af Amer) BUN/Creatinine Ratio Glucose POC Glucose 107 H 113 H 105 H Calcium Magnesium PG Care Time/CCT Total # of Minutes Spent Total Time Spent with Patient: Total time spent is greater than 50% in coordination of care (as documented) at patient's floor/unit and/or counseling patient: Coding Level of Care Code 69073 Subseq Hosp Care Lvl 3 Diagnoses Sepsis A41.9 Sepsis acute organ dysfunction status: unspecified Sepsis type: sepsis due to unspecified organism Acute on chronic diastolic (congestive) heart failure I50.33 Acute blood loss anemia D62 Macrocytic anemia D53.9 Acute respiratory failure with hypoxia J96.01 KAYKAY (acute kidney injury) N17.9 Acute metabolic encephalopathy G93.41 Chronic obstructive pulmonary disease J44.9 COPD type: unspecified COPD Hypertension I10 Temporal arteritis M31.6 Dyslipidemia E78.5 Hypokalemia E87.6 Paroxysmal atrial fibrillation I48.0 (1) Sepsis Sepsis acute organ dysfunction status: unspecified Sepsis type: sepsis due to unspecified organism Qualified Code(s): A41.9 - Sepsis, unspecified organism (2) Chronic obstructive pulmonary disease COPD type: unspecified COPD Qualified Code(s): J44.9 - Chronic obstructive pulmonary disease, unspecified
[2021-02-28 08:09] LABS: Hematocrit (blood only) 27.7 % (42-52); Hemoglobin 8.9 g/dL (14.0-18.0); Mean Corpuscular Hemoglobin 34.2 pg (25-34); Mean Corpuscular Hgb Conc 32.1 g/dL (32-36); Mean Corpuscular Volume 106.5 fL (80-100); Mean Platelet Volume 9.7 fL (7.4-10.4); Platelet Count 263 K/uL (130-400); RDW Coefficient of Variation 16.9 % (11.5-14.5); RDW Standard Deviation 63.3 fL (36.4-46.3); White Blood Count 11.21 K/uL (4.8-10.8)
[2021-02-28 08:39] LABS: BUN Creatinine Ratio 11.6 (10-20); Calcium 8.8 mg/dl (8.5-10.1); Creatinine Clr Calc Pharmacy 73.8 ml/min; Est GFR (African American) 73.6 ml/min; Est GFR (Non-African American) 63.5 ml/min; Potassium 4.2 mmol/L (3.5-5.1)
[2021-02-28] MEDS: POTASSIUM CHLORIDE CRTAB 20 MEQ TABCR PO SCH (08:48)
[2021-02-28] MEDS: VENLAFAXINE HCL XR 75 MG CAPXR PO SCH (08:49)
[2021-02-28] MEDS: CYANOCOBALAMIN 500 MCG TABLET (VITAMIN B-12) PO SCH (08:49)
[2021-02-28] MEDS: ARIPiprazole 5 MG TAB PO SCH (08:49)
[2021-02-28] MEDS: buPROPion SR 100 MG TABCR PO SCH (08:49)
[2021-02-28] MEDS: FOLIC ACID 1 MG TAB PO SCH (08:50)
[2021-02-28] MEDS: METOPROLOL TARTRATE 25 MG TAB PO SCH (08:50)
[2021-02-28] MEDS: FUROSEMIDE 20 MG TAB PO SCH (08:50)
[2021-02-28] MEDS: SPIRONOLACTONE 25 MG TAB PO SCH (08:50)
[2021-02-28] MEDS: CHOLECALCIFEROL 400 UNITS 10 MCG TAB PO SCH (08:50)
[2021-02-28] MEDS: PANTOprazole 40 MG TAB PO SCH (08:50)
[2021-02-28] MEDS: predniSONE 10 MG TABLET PO SCH (08:50)
[2021-02-28] MEDS: INSULIN ASPART 100 UNITS/ML 3 ML PEN SC SCH ×2 (08:53→12:14)
[2021-02-28] MEDS: TAMSULOSIN HCL 0.4 MG CAP PO SCH (10:09)
--- NOTE | 2021-02-28 13:12 | Discharge Summary ---
Date of Service date of admission - February 17, 2021 date of discharge - February 28, 2021 Admission HPI Per Admitting Provider This is a 75-year-old male with past medical history of temporal arteritis on long-term methotrexate/prednisone treatment, COPD, cor pulmonale that presents today after being found down. Patient is awake but seems a little confused and unable to provide any history. Is currently on BiPAP. Therefore, most of the history was per the ER physician. Apparently the patient was found on his front lawn today by neighbors. He appeared to be mottled at that time and had significant shortness of breath. He was brought to the ER emergently and was found to be hypotensive at 80/60 with a pulse of 150. Emergency room work-up revealed a significantly elevated white count and serum lactate but there was no clear etiology. Patient was placed on BiPAP with improvement of his vital signs including O2 sat of 100%. ER physician told me that they considered possible adrenal crisis as an etiology as the patient is known to be on prednisone and give the patient both Solu-Medrol and Solu-Cortef along with Zosyn, vanco and Levaquin for possible sepsis. Remainder of labs ordered, including ABG, random cortisol, urinalysis, etc. are still pending at the time of this dictation. At time of evaluation, nursing was placing a Mendiola catheter. Patient appear to be lethargic but was arousable. He did answer some questions. He admitted that he had no recollection of the events and could provide no further details. Vital signs now appear to be more stable with a blood pressure 119/74, pulse of 130 (documented, now down to 112, ST on monitor), respiratory rate of 21, O2 sats of 100%. Principal Diagnosis 1. concern/suspicion for sepsis/infection - ruled out, infection never found 2. acute on chronic hypoxic respiratory failure 3. severe anemia Discharge Exam Constitutional + obese; no acute distress and no altered mental status ENMT external ear and nose normal, oropharynx normal Mouth: + oropharynx abnormality (erythema w/ a large ulceration posteriorly - improving ) Respiratory normal respiratory effort, lungs clear to auscultation Auscultation: no crackles and no wheezes Cardiovascular Rate/Rhythm: regular rate and regular rhythm Heart Sounds: normal S1 and normal S2; no murmur Vessels: posterior tibial pulses present and dorsalis pedis pulses present; no JVD Extremities: no edema Gastrointestinal (Abdomen) normal bowel sounds, soft, nontender, no hepatosplenomegaly Skin + ecchymosis (scattered on arms ) Neurologic moves all extremities; no focal motor deficits Psychiatric A+Ox3, euthymic affect (a little confusion for events, etc at times ) Discharge Data Allergies Allergy/AdvReac Type Severity Reaction Status Date / Time No Known Allergies Allergy Unknown Verified 02/17/21 14:01 Consultations Chief Psychologist [facility] Radiology Hematology PT, OT Procedures Performed Operation Date: 02/18/21 16:30 Actual Procedures p Esophagogastroduodenoscopy - Claus Martinez MD * Normal esophagus. * Gastritis. * Normal duodenal bulb and second portion of the duodenum. * NO SOURCE of bleeding found. Echocardiogram: * hyperdynamic LF, EF >70% * left ventricular intracavitary gradient * poor image quality * no significant valvular pathology Ordered Studies Chest X-Ray 02/17/21 11:58 SINGLE VIEW CHEST CLINICAL HISTORY: Sepsis. FINDINGS: An AP, portable, upright chest radiograph is compared to study dated 09/13/2019 and correlated with chest CT dated 06/03/2019. The heart is enlarged noting atherosclerotic calcification and uncoiling of the thoracic ureter. The pulmonary vasculature is noncongested. Chronic interstitial thickening is similar to previous. There are scattered calcified granulomas. Scarring/atelect asis is noted at the lung bases. There is no evidence of superimposed airspace consolidation or pleural effusion. No pneumothorax is seen. The skeletal structures are osteopenic. The bony thorax is grossly intact. Advanced degenerative change is seen in the shoulders. Surgical anchors are noted in the left humeral head. Spondylotic change is noted throughout the imaged spine. IMPRESSION: Cardiomegaly with no acute cardiopulmonary abnormality. ACT 112: Negative or not required by law. Electronically signed by: Leroy Wasserman M.D. 02/17/2021 1:16 PM Chest CTA 02/17/21 12:05 CT ANGIOGRAM OF THE CHEST CLINICAL HISTORY: PE COMPARISON STUDY: June 03, 2019 TECHNIQUE: Following the IV administration of 112 mL of Optiray, CT angiogram of the thorax was performed from the thoracic inlet to the lung bases utilizing the pulmonary embolus protocol. Images are reviewed in the axial, sagittal, and coronal planes. IV contrast was administered without complication. MIP imaging was performed. A dose lowering technique was utilized adhering to the principles of ALARA. CT DOSE: 2610.65 mGy.cm FINDINGS: Adequate opacification within main pulmonary artery is seen. Evaluation of peripheral branches is slightly limited due to respiratory motion artifact. Main pulmonary artery is dilated measuring 3.0 cm in diameter. No right heart strain is seen. No pathologically enlarged axillary mediastinal or hilar lymph nodes were visualized. Thoracic aorta is tortuous, normal in caliber with scattered calcifications of its wall. Visualized portion of thyroid gland shows no evidence of focal lesions. Proximal aspect of esophagus is patulous, slightly dilated with air-fluid level. There is moderate fat-containing hiatal hernia is seen. Tracheobronchial tree is patent. No large infiltrates or consolidative lesions are seen. Patchy areas of peripheral septal thickening, traction bronchiectasis is again seen however evaluation is limited due to motion artifact. No definite honeycombing is demonstrated. Possible mild groundglass attenuation is seen within areas of fibrotic changes. Few calcifications are seen within peripheral aspect of the right lower lobe, stable since prior. Limited evaluation of upper abdominal viscera shows no evidence of focal lesions. Evaluation is limited due to mild motion and beam hardening artifact. Osseous structures: Multilevel degenerative changes of the spine. IMPRESSION: 1. No definite central pulmonary embolus is seen however evaluation of peripheral branches is limited due to motion artifact. 2. Mild dilatation of the main pulmonary artery could be seen in pulmonary hypertension. No right heart strain demonstrated. 3. No large infiltrates or consolidative lesions are seen however there is redemonstration of mild fibrotic changes at peripheral aspect of bilateral lungs which is not significantly changed since prior. Limited evaluation due to motion artifact. 4. Hiatal hernia. Patulous dilated proximal esophagus with air-fluid level. Please correlate above-mentioned findings with prior history of esophageal abnormalities. ACT 112: Negative or not required by law. The above report was generated using voice recognition software. It may contain grammatical, syntax or spelling errors. Electronically signed by: Bernie Parker DO 02/17/2021 12:45 PM Abdomen/Pelvis CT 02/17/21 12:[address] WITH IV CONTRAST CT DOSE: HISTORY: Hypotensive. Generalized abdominal pain. TECHNIQUE: Multiaxial CT images of the abdomen and pelvis were performed following the use of intravenous contrast. A dose lowering technique was utilized adhering to the principles of ALARA. COMPARISON STUDY: Abdomen and pelvis CT 09/13/2019. MRCP 09/14/2019. FINDINGS: Please refer to the same day chest CTA for further evaluation of the lung bases. No pneumoperitoneum. No pneumatosis. No suspicious lytic or blastic osseous lesions. Small fat-containing left inguinal hernia. Stable calcifications within the central liver. No hepatic or splenic masses. The gallbladder, pancreas, and adrenal glands are unremarkable. Moderate to severe bilateral cortical renal thinning. A few scattered bilateral renal hypodense lesions. Dominant hypodense lesion within the upper pole the right kidney measures 1.9 cm. This does not clearly represent a simple cyst and could represent a hyperdense cyst or renal mass. No retroperitoneal lymphadenopathy. The main portal vein is patent. Moderate calcified plaque within the aorta and iliac arteries is again noted. There are multiple brachytherapy seeds seen at the prostate gland. No pelvic lymphadenopathy identified. The bladder is decompressed and therefore not well evaluated. No ureteral stones. No hydronephrosis. There are few punctate bilateral renal calculi. Colonic diverticulosis. No evidence for acute diverticulitis. No bowel wall thickening or obstruction. Normal appendix. Stable mild superior endplate deformity at L2. IMPRESSION: 1. No bowel wall thickening or obstruction. 2. Bilateral nephrolithiasis. No hydronephrosis. 3. A 1.8 cm hypodense lesion within the right kidney. This does not clearly represent a simple cyst. This could represent a hyperdense cyst or possibly a renal mass. Dedicated follow-up nonemergent renal ultrasound is recommended for further evaluation. 4. Additional findings as described above. ACT 112: Negative or not required by law. Electronically signed by: Óscar Justice M.D. 02/17/2021 12:[address] 02/17/21 16:17 CT head/brain wo con CLINICAL HISTORY: 75 years-old Male with AMS. Acutely altered mental status TECHNIQUE: Multiple axial CT images of the head were obtained without contrast. A dose lowering technique was utilized adhering to the principles of ALARA. CT DOSE: 1174.57 mGy.cm COMPARISON: Head CT 09/13/2019. FINDINGS: Motion degraded exam. No acute intracranial hemorrhage, midline shift, intracranial mass, hydrocephalus, territorial ischemia or abnormal extra-axial collection. Age-related involutional changes. White matter hypodensities suggestive of chronic microvascular ischemic disease. Cerebral vascular calcifications. The calvarium is intact. Mastoid air cells are clear. Mild mucosal thickening with small air-fluid level of the right maxillary sinus. Unremarkable soft tissues. IMPRESSION: No acute intracranial abnormality. ACT 112: Negative or not required by law. The above report was generated using voice recognition software. It may contain grammatical, syntax or spelling errors. Electronically signed by: Addy Larose M.D. 02/17/2021 5:02 PM Abdomen/Pelvis CT 02/18/21 08:[address] WITHOUT CONTRAST CT DOSE: 1077.42 mGycm HISTORY: Generalized abdominal pain. r/o ischemia TECHNIQUE: Multiaxial CT images of the abdomen and pelvis were performed without contrast. A dose lowering technique was utilized adhering to the principles of ALARA. COMPARISON STUDY: Abdomen and pelvis CT 02/17/2021. FINDINGS: Mild chronic interstitial thickening and a few bibasilar linear densities are again noted. Suboptimal evaluation of the abdomen and pelvis due to the motion artifact. No pneumoperitoneum. No pneumatosis. No fractures within the visualized osseous structures. The unenhanced probable punctate right renal calculi. Gallbladder, spleen, adrenal glands, and pancreas are unremarkable. No retroperitoneal lymphadenopathy. Calcified plaque within the normal caliber abdominal aorta. There is a 5 mm stone within the lower pole the left kidney. Redemonstration of the 1.9 cm hypodense lesion within the right kidney. This may demonstrate enhancement when compared to the prior study and therefore could represent a renal mass. No hydronephrosis. No ureteral stones. The bladder is decompressed by a Mendiola catheter. Mild fat stranding anterior to the bladder. T iny fat-containing left inguinal hernia. Suboptimal evaluation for bowel pathology due to the lack of intravenous and oral contrast. However, there is no definite bowel wall thickening or obstruction. Colonic diverticulosis. No evidence for acute diverticulitis. Normal appendix. There is trace edema versus retroperitoneal hemorrhage anterior to the iliopsoas muscle within the left pelvis. This is best seen on image 305. This measures 3.1 x 1.3 cm. This is new from the prior study. Multiple brachytherapy seeds again noted within the prostate gland. Stable hepatic calcifications are noted. IMPRESSION: 1. There is trace focal edema versus retroperitoneal hemorrhage anterior to the iliopsoas muscle within the left pelvis. This measures 3.1 x 1.3 cm and is new from the prior study. 2. Bilateral nephrolithiasis. No ureteral stones. No hydronephrosis. 3. The 1.9 cm hypodense lesion within the right kidney may demonstrate enhancement when compared to the prior study. Therefore, a renal mass is the diagnosis of exclusion. Follow-up nonemergent dedicated renal MRI can be used for further evaluation. 4. The bladder is decompressed by Mendiola catheter. There is mild edema/fat stranding anteriorly. This is nonspecific but could be due to a mild cystitis. ACT 112: Positive. There are findings on this exam that require communication between the performing entity and the patient following Patient Test Result Information Act ([place] Act 112) guidelines. Electronically signed by: Óscar Justice M.D. 02/18/2021 10:24 AM Chest X-Ray 02/18/21 15:51 XR chest 1V portable HISTORY: 75 years-old Male check ETT position - newly intubated acute respiratory failure COMPARISON: Chest radiograph and CTA chest 02/17/2021 TECHNIQUE: Semierect AP view of the chest FINDINGS: Endotracheal tube overlies the midline, 6.8 cm superior to the daxa. Cardiomegaly. Unchanged interstitial coarsening. No pneumothorax, pleural effusion or overt pulmonary edema. There are progressive left greater than right bibasilar opacities. Degenerative changes of the shoulders and spine. IMPRESSION: 1. Endotracheal tube terminates 6.8 cm superior to the daxa. 2. Cardiomegaly. 3. Progressive left greater than right bibasilar opacities suggestive of atelectasis versus pneumonitis. ACT 112: Negative or not required by law. The above report was generated using voice recognition software. It may contain grammatical, syntax or spelling errors. Electronically signed by: Addy Larose M.D. 02/18/2021 4:14 PM KUB X-Ray 02/18/21 17:51 KUB CLINICAL HISTORY: Enteric tube placement. FINDINGS: 2 AP, portable, supine abdominal radiographs are correlated with abdominal CT dated 02/18/2021. An enteric tube has been placed. The tip projects below the diaphragm over the mid to distal stomach. There is no evidence of bowel obstruction or intraperitoneal free air. No abnormal abdominal calcifications are identified. The skeletal structures are osteopenic. There is advanced lumbosacral spondylosis. IMPRESSION: An enteric tube has been placed as above. Electronically signed by: Leroy Wasserman M.D. 02/18/2021 6:26 PM Chest X-Ray 02/19/21 07:00 XR chest 1V portable HISTORY: 75 years-old Male Resp failure acute respiratory failure COMPARISON: Chest radiograph 02/18/2021 TECHNIQUE: Portable AP view of the chest FINDINGS: Endotracheal tube overlies the midline, 5.0 cm superior to the daxa. Cardiomegaly. Interstitial coarsening redemonstrated. There is no pneumothorax, large pleural effusion or overt pulmonary edema. Mild left greater than right bibasilar opacities redemonstrated. Degenerative changes of the shoulders and spine. IMPRESSION: 1. Endotracheal tube terminates 5.0 cm superior to the daxa. 2. Cardiomegaly. 3. Persistent left greater than right mild bibasilar opacities. ACT 112: Negative or not required by law. The above report was generated using voice recognition software. It may contain grammatical, syntax or spelling errors. Electronically signed by: Addy Larose M.D. 02/19/2021 7:00 AM Lumbar Puncture Fluoroscopy 02/19/21 09:08 FLUOROSCOPIC GUIDED LUMBAR PUNCTURE CLINICAL HISTORY: Change in mental status. PROCEDURE: The risks, benefits, and alternatives to the procedure were discussed with the patient's son who provided phone consent. The patient was placed prone on the fluoroscopy table. The lower back was prepped and draped in the usual sterile fashion. 1% lidocaine was used for local anesthesia. Lumbar puncture was attempted utilizing 20-gauge spinal needles. Attempts were made at L3-L4, L4-L5, and L5-S1 by 2 radiologists. The needle appeared appropriately positioning on b [facility] AP and lateral views at L3-L4. There was no return of spinal fluid despite multiple repositioning attempts. Further attempts were made before the procedure was discontinued. There were no immediate complications. 17 spot images were saved. The patient was then returned to the ICU for further observation. Fluoroscopy time: 2.3 minutes IMPRESSION: Fluoroscopic guided lumbar puncture attempt as detailed above. The needle appeared appropriate positioned at L3-L4 with no return of spinal fluid. ACT 112: Negative or not required by law. Electronically signed by: Leroy Wasserman M.D. 02/19/2021 1:42 PM Chest X-Ray 02/20/21 07:00 XR chest 1V portable HISTORY: Respiratory failure. COMPARISON: Chest 02/19/2021. FINDINGS: Lines and tubes remain unchanged in position. The heart remains mildly enlarged. No pneumothorax. Moderate hiatus hernia, unchanged. Emphysema. Interstitial thickening at the lung bases persist. IMPRESSION: 1. Satisfactory support line placement. 2. Cardiomegaly, unchanged. 3. No change in the bibasilar interstitial thickening. No new focal lung consolidations. ACT 112: Negative or not required by law. Electronically signed by: Óscar Justice M.D. 02/20/2021 8:36 AM Chest X-Ray 02/21/21 07:00 SINGLE VIEW CHEST CLINICAL HISTORY: Respiratory failure FINDINGS: 2 AP, portable, upright chest radiographs are compared to study dated 02/20/2021 and correlated with chest CT dated 02/17/2021. The examination is degraded by portable technique and patient rotation. Endotracheal and enteric tubes are unchanged in position. The heart is enlarged. The pulmonary vasculature is noncongested. Emphysema and chronic interstitial thickening is similar to previous. Bibasilar opacities are unchanged from previous. No large pleural effusion or pneumothorax is seen. The bony thorax is grossly intact. Surgical anchors are noted in the left humeral head. IMPRESSION: 1. Stable lines and tubes. 2. Cardiomegaly and emphysema. 3. Bibasilar opacities are unchanged. ACT 112: Negative or not required by law. Electronically signed by: Leroy Wasserman M.D. 02/21/2021 7:[address] 02/23/21 15:28 CT facial bones w con HISTORY: 75 years-old Male broken teeth, abscess? presented with sepsis acute facial injury with sepsis COMPARISON: Head CT 02/17/2021 TECHNIQUE: Multiple axial CT images of the maxillofacial bones were obtained following the intravenous ministration of 94 mm Optiray 320. A dose lowering technique was used consistent with the principals of ALARA. FINDINGS: Streak artifact from dental amalgam hardware limits the study. No acute process of the imaged intracranial structures. Age-related involutional changes. White matter hypodensities suggestive of chronic microvascular ischemic disease. Mixed plaque of the carotid bulbs and proximal cervical segments of the internal carotid arteries. The bilateral globes, orbits and soft tissues are unremarkable. No significant soft tissue swelling or drainable fluid collection. There is no adenopathy. Parotid and submandibular glands are unremarkable. Patent airway. The epiglottis is not imaged. Advanced multilevel degenerative changes of the imaged cervical spine. Numerous dental caries. Unerupted bilateral mandibular and right maxillary third molars. Questioned fractures involving the distal aspects of the mandibular central incisors. No large periapical cysts. Numerous root canals. Left mandibular dental implant. IMPRESSION: 1. Streak artifact from dental amalgam hardware limits evaluation of the oral cavity. Dental caries are noted without associated periapical cysts. 2. No significant inflammatory inflammatory changes, fluid collection or adenopathy. 3. Moderate atherosclerosis of the carotid bulbs. ACT 112: Negative or not required by law. The above report was generated using voice recognition software. It may contain grammatical, syntax or spelling errors. Electronically signed by: Addy Larose M.D. 02/23/2021 4:[address] 02/25/21 15:07 [address] pelvis wo con CT DOSE: 1725.65 mGy.cm CLINICAL HISTORY: Decreasing hemoglobin. Left psoas hematoma. TECHNIQUE: Helical images were acquired in the transverse plane. No intravenous contrast was administered. A dose lowering technique was utilized adhering to the principles of ALARA. COMPARISON STUDY: 02/18/2021 FINDINGS: There is partial visualization of a 7 mm lower pole left renal calculus. The appendix appears normal. There is no evidence of acute diverticulitis. Atheromatous changes are present within the abdominal aorta. There is no evidence of abdominal aortic aneurysm. There is no free pelvic fluid. There is an indwelling Mendiola catheter present. There is gas within the bladder likely iatrogenic. Prostate brachytherapy seeds are visualized. There is decreased infiltration of the fat anterior to the left psoas muscle. No discrete retroperitoneal hematoma is visualized. No destructive skeletal lesions are visualized. IMPRESSION: 1. No current evidence for a retroperitoneal hematoma. 2. Left-sided nephrolithiasis. ACT 112: Negative or not required by law. Electronically signed by: Zeke Vital M.D. 02/25/2021 3:57 PM Hospital Course (1) Sepsis: Suspected - present on admission. However - no bacterial or viral source ever found; lyme negative, COVID testing negative, etc. Although he had leukocytosis at admission the wbc count normalized. Blood cultures remained negative. Urine culture was negative. CXR did not show discrete pneumonia. He underwent attempts at a fluoro-guided LP by radiology but this was not successful. As a precautionary measure he completed a 7-day course of empiric IV antibiotics in the event he indeed had a bacterial source of infection that simply could not be isolated. ?addisonian component at time of admission given chronic prednisone use? ?GI bleeding contributing to severity of illness? No infectious symptoms were seen during the last 3-4 days prior to discharge. He is off all antibiotics at time of hospital discharge. (2) Acute on chronic diastolic (congestive) heart failure: Resolved with use of IV diuretics. At time of discharge he resumed low-dose lasix with aldactone which are chronic meds for him. (3) Acute and chronic respiratory failure with hypoxia: Patient required BIPAP at time of admission, and ultimately was intubated the evening of 02/18/21. He remained intubated in the ICU until the AM of 02/21/21 at which time he was successfully extubated from the vent and transitioned to NC O2. He then remained on 3 liters of NC O2 until the time of his discharge. Acute component was felt 2nd to decompensated CHF. (4) Acute blood loss anemia: Hb ~15 in December 2020. Hb ~11.5 at admission. Dropped to <7 within 36 hrs of admission. s/p 2 units PRBCs in response to that drop. EGD was performed by Dr Claus Martinez, [facility]. EGD was normal except for gastritis; however, there was no active bleeding during the endoscopy. stool was heme + earlier this stay. As the patient's stay wore on his hemoglobin settled at about 8.5. MCV was elevated at ~105. He had a robust retic count with his anemia. Pelvic CT did NOT show retroperitoneal hematoma or psoas hematoma as source of bleeding. iron studies wnl b12/folate wnl retic 7% LDH elevated haptoglobin pending trung neg peripheral smear w/o leukemic features Patient seen by Dr Bj Gray, hematology. Dr Gray felt that his acute anemia was likely due to GI bleeding as opposed to hemolysis. Discharge hemoglobin was 8.9. Patient advised to follow-up with Dr Gray post-discharge. Patient also advised to follow-up with [facility]. Consider outpatient capsule endoscopy and/or colonoscopy? (5) Macrocytic anemia: b12/folate/tsh wnl no liver disease 2nd to immature RBCs? 2nd to methotrexate usage? follow-up with Dr Gray as an outpatient. (6) KAYKAY (acute kidney injury): resolved with supportive care. Cr at admission 1.8, improving to 0.9 to 1.1 at discharge. (7) Acute metabolic encephalopathy: The patient was significantly altered at time of admission but resolved with supportive care. Suspect multiple metabolic derangements were the cause for his confusion. (8) Chronic obstructive pulmonary disease: stable controlled during his stay oxygen-dependent 3 L NC O2 (9) Hypertension: controlled but BPs were low-normal later in the stay. aldactone dose was reduced from 50mg BID to 25mg daily in response to such. other meds were left as is for now. (10) Temporal arteritis: history of. follows with Dr Francoise Melchor - [facility]. received IV stress dose steroids while hospitalized. ultimately weaned to his usual dose of prednisone 10mg daily. additionally, he takes methotrexate weekly. f/u with Dr Melchor post-discharge. (11) Dyslipidemia: continue statin agent (12) Hypokalemia: resolved with supplementation (13) Paroxysmal atrial fibrillation: none seen on telemetry while here. apixaban was placed on hold due to ?active GI bleed & anemia. continue metoprolol 25mg BID. recommended holding apixaban at discharge to ensure H/H remain stable in the days post-discharge. (14) Renal mass, right: will need f/u with [facility] post-d/c for this. (15) Gastritis: as seen on EGD. continue PPI - omeprazole 20mg daily. (16) Psoas hematoma, left, secondary to anticoagulant therapy: As seen on admission CT. Eliquis was stopped in response to this as well as concern for GI bleeding. An additional CT done later in the stay showed stable findings and improvement in size of the LEFT psoas hematoma. The psoas hematoma was likely due to trauma in the setting of Eliquis use. Total Time Total Time Spent Total Time Spent (In Minutes): 50 Discharge Plan Discharge Items Patient Disposition: Transfer Nursing Home Fac Reason For Visit: ACUTE RESPIRATORY DISTRESS Discharge Diagnosis: 1. suspicion for sepsis/infection - ruled out, infection never found (no pneumonia, no UTI, no Lyme disease, no skin infection, etc) 2. acute on chronic respiratory failure - acute component likely due to decompensated CHF and other factors - acute component resolved, back to normal 3 L NC continuously 3. severe anemia s/p 2 units of PRBCs - GI bleeding suspected but source never found; GI follow-up needed; discharge hemoglobin 8.9 4. left psoas muscle hematoma - resolving based on repeat CT imaging this week; traumatic, due to fall in his yard at his home just prior to admission 5. COPD with O2 dependency 6. history of temporal arteritis on chronic prednisone and methotrexate therapy 7. 1.8cm cyst on right kidney - urology follow-up needed 8. history of paroxysmal a.fib, previously on eliquis; ELIQUIS ON HOLD due to #3 above Activity: Resume your previous activity Non-emergency contact: Primary Care Provider and Registered Associate Call non-emergency contact if: you have any medication questions and your symptoms worsen Follow-up/Referrals: Ovidio Donovan MD [Primary Care Provider] - (Dr Donovan is now retired; patient will need a new PCP upon release from [facility]) Bj Gray DO [Physician] - (follow-up Dr Gray 1-2 weeks for anemia ) Teri Pitts CRNP [Nurse Practitioner] - (see Ms Pitts or any provider with [facility] - first available appt - dx - complex right renal c yst ) Claus Martinez MD [Physician] - (see Dr [facility] after discharge to discuss obtaining "capsule endoscopy" and/or colonoscopy; dx- GI bleeding, source never found.) Francoise Melchor MD, PhD [Physician] - (3-[address] Melchor for med management of temporal arteritis.) Diet: Carb Consistent or DM2 and Heart Healthy Diet Texture: Easy to Chew Addtl Attending Provider Instructions: 1. repeat CBC, BMP, and magnesium in 3 days 2. check fingerstick blood sugars twice a day for stability 3. NC O2 3 liters continuously 4. daily weights; notify MD if any weight gain of more than 3 pounds in 1-2 days Pending Studies at Discharge: No Stand-Alone Forms: [employer] Skilled Items Patient informed of condition?: Yes DNR: No Discharge Level of Care: Skilled Communicable Disease: No Discharge Prognosis: Stable Lines: None Urinary Catheter: No Medications and DC Order Prescriptions: New omeprazole 20 mg capsule,delayed release(DR/EC) 20 mg PO DAILY Qty: 30 RF: 5 oxycodone-acetaminophen [Percocet] 7.5-325 mg tablet 1 tab PO Q8H PRN (Reason: pain) Qty: 10 RF: 0 Continued aripiprazole 5 mg tablet 5 mg PO QAM Qty: 90 RF: 3 cholecalciferol (vitamin D3) [Vitamin D3] 10 mcg (400 unit) tablet 800 unit PO QAM Qty: 90 RF: 3 furosemide 20 mg tablet 20 mg PO QAM Qty: 90 RF: 3 metoprolol tartrate 25 mg tablet 25 mg PO BID Qty: 180 RF: 3 potassium chloride 20 mEq tablet extended release 20 meq PO QAM Qty: 90 RF: 3 prednisone 5 mg tablet 10 mg PO DAILY Qty: 90 RF: 0 simvastatin 40 mg tablet 40 mg PO QPM Qty: 90 RF: 3 venlafaxine 75 mg capsule,extended release 24hr 75 mg PO QAM Qty: 90 RF: 3 venlafaxine 150 mg capsule,extended release 24hr 150 mg PO QAM Qty: 90 RF: 3 folic acid 1 mg tablet 1 mg PO QAM Qty: 90 RF: 1 cyanocobalamin (vitamin B-12) 1,000 mcg capsule 1,000 mcg PO QAM RF: 0 bupropion HCl 100 mg tablet sustained-release 12 hr 100 mg PO QAM RF: 0 tamsulosin 0.4 mg capsule 0.4 mg PO QAM RF: 0 spironolactone 25 mg tablet 25 mg PO QAM Qty: 0 RF: 0 methotrexate sodium 2.5 mg tablet 7.5 mg PO UD Qty: 0 RF: 0 Discontinued Eliquis 5 mg tablet 5 mg PO BID Qty: 180 RF: 3 prednisone 1 mg tablet 1 mg PO .COMPLEX Qty: 120 RF: 1 oxycodone-acetaminophen 10-325 mg tablet 1 tab PO Q4H PRN (Reason: pain) Qty: 150 RF: 0 Hold Instructions: Due on 11/23 Discharge Orders: Discharge Order (Routine); Ordered 02/28/21 Ordered By: Ovidio Mckinney Admission Data Admit Date/Time: 02/17/21 14:08 Attending Provider: Ovidio Mckinney Admit Provider: Jose Alberto Kenyon Primary Care Provider: Ovidio Donovan Other Providers: Jose Alberto Kenyon ; Heavenly Pulido ; Mitchell Segura ; Odalys Blackwell ; More Bustos ; Claus Martinez ; Teri Manzanares ; Pamella Cooley ; Asher Mcpherson ; Ann Rosa ; Addy Larose ; Hi Corbin ; Zeke Vital ; Óscar Justice ; Betzy Upton ; Catina Willard ; Leroy Wasserman ; Catrachita Duong ; Mitchell Bustos ; Omar Lewis ; Sonny Ratliff ; Bernie Parker V. ; Angie Knox [facility] [place] ; Bj Gray V. Other Interventions: Discharge Summary Assessment (RN) Last Done: 02/28/21 13:32 Coding Level of Care Code D/C DAY MANAGEMENT >30 MINS Diagnoses Sepsis A41.9 Sepsis acute organ dysfunction status: unspecified Sepsis type: sepsis due to unspecified organism Acute on chronic diastolic (congestive) heart failure I50.33 Acute blood loss anemia D62 Macrocytic anemia D53.9 KAYKAY (acute kidney injury) N17.9 Acute metabolic encephalopathy G93.41 Chronic obstructive pulmonary disease J44.9 COPD type: unspecified COPD Hypertension I10 Temporal arteritis M31.6 Dyslipidemia E78.5 Hypokalemia E87.6 Paroxysmal atrial fibrillation I48.0 Acute and chronic respiratory failure with hypoxia J96.21 Renal mass, right N28.89 Gastritis K29.70 Psoas hematoma, left, secondary to anticoagulant therapy S30.1XXA
== END 2021-02-28 14:45 | DRG 871 ==
LOC: ED 11:33 → 2E 14:08 → SUATTDRO 14:08 → 2E 15:15 → 1E 17:14 → 2S 02-22 14:27
DX: D53.9 Nutritional anemia, unspecified; W19.XXXA Unspecified fall, initial encounter; F17.210 Nicotine dependence, cigarettes, uncomplicated; I11.0 Hypertensive heart disease with heart failure; E87.6 Hypokalemia; F41.8 Other specified anxiety disorders; N17.9 Acute kidney failure, unspecified; E87.8 Other disorders of electrolyte and fluid balance, not elsewhere classified; E78.5 Hyperlipidemia, unspecified; S20.229A Contusion of unspecified back wall of thorax, initial encounter; I50.33 Acute on chronic diastolic (congestive) heart failure; E87.2 Acidosis; E87.0 Hyperosmolality and hypernatremia; I48.0 Paroxysmal atrial fibrillation; I95.9 Hypotension, unspecified; J96.01 Acute respiratory failure with hypoxia; I27.81 Cor pulmonale (chronic); J44.9 Chronic obstructive pulmonary disease, unspecified; A41.9 Sepsis, unspecified organism; R19.5 Other fecal abnormalities; E86.0 Dehydration; M31.6 Other giant cell arteritis; N28.1 Cyst of kidney, acquired; N40.0 Benign prostatic hyperplasia without lower urinary tract symptoms; Y92.017 Garden or yard in single-family (private) house as the place of occurrence of the external cause; I21.A1 Myocardial infarction type 2; Z79.899 Other long term (current) drug therapy; C61 Malignant neoplasm of prostate; D62 Acute posthemorrhagic anemia; Z79.52 Long term (current) use of systemic steroids

== ENCOUNTER 2022-08-16 13:07 | Inpatient (IN) ==
--- NOTE | 2022-08-16 13:13 | Emergency Department Note ---
Impression & Plan Rhabdomyolysis, Fall, Elevated troponin, Dizziness, Acute dehydration, Influenza A ED Provider Note NAME: CATERINA GUIDRY AGE: 77 SEX: M : 1945 ARRIVES VIA: Ambulance INFORMANT: Patient, ED PROVIDER(S): Je Tineo MD CHIEF COMPLAINT: Fall, found down MEDICAL DECISION MAKING: Patient presented due to concern for weakness fall and dizziness. Labs obtained along with a CK and the patient was ordered IV fluids. The patient did have a CT of the head neck and face as well as lumbar spine. Plain films were ordered of the chest And right hip. The patient's blood work shows normal white count with mild anemia hemoglobin 13.7 normal platelet count. The patient's kidney function is unremarkable. The patient does have prerenal azotemia. Mild hypocalcemia. Patient does have an elevated troponin at 302 but the patient denies any chest pains do believe this is likely from demand ischemia. The pat ient does have a CK of almost 3400 with a Pro-Aden of 1.1. Urinalysis does not show evidence of obvious infection. Flu a positive. The patient was ordered Tamiflu and additional IV fluids in light of the patient's rhabdomyolysis. Antibiotics deferred to inpatient team. I did briefly speak with son and did inform him of the findings. He is comfortable with the plan of care. He did provide the same history that he did find his father facedown earlier today. Differential diagnosis: Infection, dehydration, metabolic abnormality, hypo/hyperglycemia, electrolyte disturbance, anemia, hypoxia, cardiac sources, intracerebral event, toxicologic, neurologic, as well as other pathologies. Diagnostics, as interpreted by me: ECG: Sinus with risk AV block, rate of 73, prolonged WA normal QRS, normal axis no ST elevations, T wave version V2. Patient's EKG looks grossly unchanged for comparison completed February 18, 2021. Cardiac monitoring: An order was placed for continuous cardiac monitoring. The monitor shows a rate of 77 with sinus rhythm. Patient was placed on pulse oximetry Medical decision rules: None Imaging studies: See below HPI: Patient presents from home. The patient was last spoken to by his son around 3 PM and thinks that the patient may have fallen around that time. The son did present to the patient's residence this morning the patient was found laying face forward. Patient believes that he fell backward and did feel dizzy around the time that he had fallen. The patient was unable to get up. Patient does complain of some mild chest pain and lower back pain. Patient was noted to have some abrasions to the knees as well as the lower chest wall potentially consistent with laying down for prolonged period of time. Patient denies any significant head or neck pain but does have some swelling around the left eye. The patient reports not using blood thinning medications. Patient denies any abdominal pain but does have some low back pain. Patient also complains of some right-sided hip pain. No medications given prior to arrival. The son is who called the ambulance this morning. Patient is unsure as to when he last took his medications. No additional exacerbating or remitting factors. PAST MEDICAL HISTORY: See Below PAST SURGICAL HISTORY: See Below SOCIAL HISTORY: See Below HOME MEDICATIONS: See Below ALLERGIES: See Below VITALS: See Below PHYSICAL EXAMINATION: GENERAL: Mildly ill and fatigued in appearance, nasal cannula in place. EYE EXAM: Normal conjunctiva. PERRL, no anisocoria and EOM's grossly intact w/o pain. Left periorbital ecchymosis noted but without proptosis. No conjunctival injection or subconjunctival hemorrhage. Head: Left periorbital ecchymosis no TTP elsewhere. NECK: Supple, no nuchal rigidity, no adenopathy, non-tender. No signs of meningismus. FROM of the neck with good chin to chest and neck extension. No stridor. No midline C-spine TTP LUNGS: Clear to auscultation. Normal chest wall mechanics. Chest: Abrasion noted to the left anterior chest with mild TTP. No obvious deformity or crepitus. No flail chest. HEART: NSR, no MRG. ABDOMEN: Abdomen soft, non-tender, normo-active bowel sounds, no masses, no rebound or guarding. BACK: No CVA TTP. Lower lumbar midline discomfort but without obvious step-offs or deformities. SKIN: No rashes and no bruising. UPPER EXTREMITIES: Upper extremities are grossly normal. LOWER EXTREMITIES: Grossly normal, no edema. Left lower extremity no TTP, sligh t abrasion to the left knee, right lower extremity with TTP to the right hip and abrasion to the right knee but no TTP to the right knee. NEURO EXAM: Awake and alert, follows basic commands, oriented to person, and place and able to answer simple arithmetic, cranial nerves II-XII grossly intact, normal speech, moves all 4 extremities. Past Med/Surg History Medical History Achalasia KAYKAY (acute kidney injury) Anxiety and depression Cholelithiasis EUS 11/02 multiple Chronic obstructive pulmonary disease Chronic respiratory failure with hypoxia Degenerative disc disease Depression Esophageal dilatation History of malignant neoplasm of prostate History of nicotine dependence History of non-healing wound PT'S SON REPORTS PT HAD THESE (TO LOWER LEGS) AND HOME NURSING CHECKS BUT HAVE IMPROVED GREATLY History of pneumonia Hx of pancreatitis Hypertension On home oxygen therapy 3lpm prn Osteoarthritis Pancreatic cyst Upper EUS on 11/02-5mm Peripheral neuropathy bilateral hands & feet Solitary pulmonary nodule Temporal arteritis Weight gain Surgical History H/O toe surgery History of arthroscopic surgery of shoulder bilateral History of colonoscopy History of cystoscopy with stent History of esophagogastroduodenoscopy (EGD) History of nasal septoplasty History of tonsillectomy Hx of shoulder surgery open left shoulder Family History Sister Breast cancer Denies family history of Ovarian cancer Prostate cancer Deep vein thrombosis Myocardial infarction Lung cancer Colorectal cancer Hypertension Social History Smoking Status: Former smoker Tobacco Type: Cigarettes Age Started Using Tobacco: 17; Age Quit Using Tobacco: 49; packs per day: 1; Second Hand Exposure: Yes; Hx Alcohol Use: No Hx Substance Use: No Preferred Language: Nauruan Communication Ability: Unable Visual Impairment: No Limitations Hearing Ability: Normal Desulfurizer Machine Required: No Beliefs That Will Affect Care: None marital status: Single Current Living Situation: Alone current occupational status: retired 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 Feels Safe at Home: Yes Childhood Exposure to Second-Hand Smoke: Yes caffeine: No during the past year weight has: decreased > 10 lbs Dental Care, Regularly: No Physical Activity Frequency: Does not Exercise Seatbelt Use: always Sunscreen Use: No Assistive Devices: Glasses, Oxygen - Continuous and Walker Allergies Allergies Allergy/AdvReac Type Severity Reaction Status Date / Time No Known Allergies Allergy Unknown Verified 08/16/22 15:43 Home Meds Home Medications Medication Instructions Recorded Confirmed aripiprazole 5 mg tablet 5 mg PO QAM 04/10/22 08/16/22 Previous Rx's Medication Instructions Recorded cholecalciferol (vitamin D3) 10 800 unit PO QAM #90 tabs 10/21/20 mcg (400 unit) tablet (Vitamin D3) Wheelchair (Manual) #1 ea 06/30/21 folic acid 1 mg tablet 1 mg PO QAM #90 tabs 07/30/21 metoprolol tartrate 25 mg tablet 25 mg PO BID #180 tabs 09/22/21 spironolactone 25 mg tablet 25 mg PO QAM #90 tabs 11/17/21 furosemide 20 mg tablet 20 mg PO QAM #90 tabs 12/05/21 simvastatin 40 mg tablet 40 mg PO QPM #90 tabs 12/05/21 potassium chloride 20 mEq 20 meq PO QAM #90 tabs 12/08/21 tablet,extended release prednisone 5 mg tablet 5 mg PO DAILY #90 tabs 05/19/22 tamsulosin 0.4 mg capsule 0.4 mg PO QAM #90 caps 05/19/22 methotrexate sodium 2.5 mg tablet See Rx Instructions .Route 05/29/22 .COMPLEX #78 tabs Results & Data (ED) Vital Signs Vital Signs - 24 hr 08/16/22 13:19 08/16/22 13:41 08/16/22 13:31 Temperature 36.3 C L Temperature Source Axillary Pulse Rate 99 H 97 H Respiratory Rate 20 20 Respiratory Effort / Characteristics Non-Labored Spontaneous Respiratory Depth Normal Respiratory Pattern Regular Blood Pressure 124/82 110/91 Blood Pressure Mean 96 97 Blood Pressure Position Lying Pulse Oximetry 97 95 95 Oxygen Delivery Method Nasal Cannula Nasal Cannula Nasal Cannula Oxygen Flow Rate 3 3 3 Sepsis Recent Fever Within 48 Hours No Sepsis New/Unexplained Change in Mental Status N/A Sepsis Action Taken by Nursing No Action Required 08/16/22 14:00 08/16/22 15:18 08/16/22 15:30 Temperature Temperature Source Pulse Rate 84 94 H 94 H Respiratory Rate 18 18 18 Respiratory Effort / Characteristics Respiratory Depth Respiratory Pattern Blood Pressure 139/64 108/66 98/60 L Blood Pressure Mean 89 80 72 Blood Pressure Position Pulse Oximetry 94 97 96 Oxygen Delivery Method Nasal Cannula Nasal Cannula Nasal Cannula Oxygen Flow Rate 3 3 3 Sepsis Recent Fever Within 48 Hours Sepsis New/Unexplained Change in Mental Status Sepsis Action Taken by Nursing 08/16/22 16:00 08/16/22 16:30 08/16/22 17:00 Temperature Temperature Source Pulse Rate 90 92 H 85 Respiratory Rate 20 18 18 Respiratory Effort / Characteristics Respiratory Depth Respiratory Pattern Blood Pressure 108/62 112/66 115/67 Blood Pressure Mean 77 81 83 Blood Pressure Position Pulse Oximetry 98 95 97 Oxygen Delivery Method Nasal Cannula Nasal Cannula Nasal Cannula Oxygen Flow Rate 3 3 3 Sepsis Recent Fever Within 48 Hours Sepsis New/Unexplained Change in Mental Status Sepsis Action Taken by Nursing 08/16/22 17:30 08/16/22 18:00 08/16/22 18:30 Temperature Temperature Source Pulse Rate 78 92 H 89 Respiratory Rate 18 18 20 Respiratory Effort / Characteristics Respiratory Depth Respiratory Pattern Blood Pressure 109/60 113/54 L 106/50 L Blood Pressure Mean 76 73 68 Blood Pressure Position Pulse Oximetry 99 96 98 Oxygen Delivery Method Nasal Cannula Nasal Cannula Nasal Cannula Oxygen Flow Rate 3 3 3 Sepsis Recent Fever Within 48 Hours Sepsis New/Unexplained Change in Mental Status Sepsis Action Taken by [facility] Medications Current Medication List: was personally reviewed by me Laboratory Data Attestation: I reviewed the patient's lab results. Result diagrams: 08/16/22 13:26 08/16/22 16:44 Lab Results 08/16/22 08/16/22 08/16/22 Range/Units 13:26 13:26 13:26 WBC 10.74 (4.8-10.8) K/ul RBC 4.22 L (4.63-6.08) M/uL Hgb 13.7 L (14.0-18.0) g/dl Hct 40.5 (40.1-51.0) % MCV 96.0 (80.0-100.0) fL MCH 32.5 (25.0-34.0) pg MCHC 33.8 (32.0-36.0) g/dL RDW Std Deviation 56.5 H (36.4-46.3) fL RDW Coeff of Melba 16.1 H (11.5-14.5) % Plt Count 230 (130-400) K/uL MPV 11.9 (9.4-12.4) fL Immature Gran % (Auto) 0.7 % Neut % (Auto) 90.3 % Lymph % (Auto) 4.7 % [place] % (Auto) 4.2 % Eos % (Auto) 0.0 % Baso % (Auto) 0.1 % Neut # (Auto) 9.71 H (1.4-6.5) K/uL Lymph # (Auto) 0.50 L (1.2-3.4) K/uL [place] # (Auto) 0.45 (0.24-0.82) K/uL Eos # (Auto) 0.00 (0-0.50) K/uL Baso # (Auto) 0.01 (0-0.2) K/uL Immature Gran # (Auto) 0.07 H (0.00-0.02) K/uL Toxic Vacuolation 1+ Sodium (136-145) mmol/L Potassium Chloride (98-107) mmol/L Carbon Dioxide (21-32) mmol/L Anion Gap (3-11) BUN (6-23) mg/dl Creatinine (0.6-1.4) mg/dl Est Cr Clr Drug Dosing ml/min Est GFR ( Amer) ml/min Est GFR (Non-Af Amer) ml/min BUN/Creatinine Ratio (10-20) Glucose (70-99(Fasting)) mg/dl Lactate (0.4-2.0) mmol/L Calcium (8.5-10.1) mg/dl Magnesium (1.7-2.4) mg/dl Total Bilirubin (0.2-1.0) mg/dl AST ALT (7-52) U/L Alkaline Phosphatase (34-104) U/L Total Creatine Kinase (30-223) U/L Troponin I High Sens (0-20) pg/ml Total Protein (6.0-8.3) gm/dl Albumin (3.4-5.0) gm/dl Globulin (2.5-4.0) gm/dl Albumin/Globulin Ratio (0.9-2) Procalcitonin Cancelled TSH 2.302 (0.300-4.500) uIu/ml Urine Color Urine Appearance (Clear) Urine pH (4.5-7.5) Ur Specific [place] (1.000-1.030) Urine Protein (Negative) Urine Glucose (UA) (Negative) Urine Ketones (Negative) Urine Blood (Negative) Urine Nitrite (Negative) Urine Bilirubin (Negative) Urine Urobilinogen (Negative) Ur Leukocyte Esterase (Negative) Urine WBC (Auto) (0-5) /hpf Urine RBC (Auto) (0-4) /hpf U Hyaline Cast (Auto) (0-5) /lpf U Epithel Cells (Auto) (0-5) /lpf Urine Bacteria (Auto) (Negative) Urine Yeast SARS-CoV-2 (PCR) (Negative) Influenza Type A (PCR) (Neg) Influenza Type B (PCR) (Neg) RSV (RT-PCR) (Neg) 08/16/22 08/16/22 08/16/22 Range/Units 13:48 14:51 15:25 WBC (4.8-10.8) K/ul RBC (4.63-6.08) M/uL Hgb (14.0-18.0) g/dl Hct (40.1-51.0) % MCV (80.0-100.0) fL MCH (25.0-34.0) pg MCHC (32.0-36.0) g/dL RDW Std Deviation (36.4-46.3) fL RDW Coeff of Melba (11.5-14.5) % Plt Count (130-400) K/uL MPV (9.4-12.4) fL Immature Gran % (Auto) % Neut % (Auto) % Lymph % (Auto) % [place] % (Auto) % Eos % (Auto) % Baso % (Auto) % Neut # (Auto) (1.4-6.5) K/uL Lymph # (Auto) (1.2-3.4) K/uL [place] # (Auto) (0.24-0.82) K/uL Eos # (Auto) (0-0.50) K/uL Baso # (Auto) (0-0.2) K/uL Immature Gran # (Auto) (0.00-0.02) K/uL Toxic Vacuolation Sodium 140 (136-145) mmol/L Potassium TNP Chloride 106 (98-107) mmol/L Carbon Dioxide 25 (21-32) mmol/L Anion Gap 9 (3-11) BUN 21 (6-23) mg/dl Creatinine 0.89 (0.6-1.4) mg/dl Est Cr Clr Drug Dosing 77.3 ml/min Est GFR ( Amer) 94.9 ml/min Est GFR (Non-Af Amer) 81.9 ml/min BUN/Creatinine Ratio 23.6 H (10-20) Glucose 112 H (70-99(Fasting)) mg/dl Lactate (0.4-2.0) mmol/L Calcium 8.1 L (8.5-10.1) mg/dl Magnesium 1.9 (1.7-2.4) mg/dl Total Bilirubin 0.8 (0.2-1.0) mg/dl AST TNP ALT 28 (7-52) U/L Alkaline Phosphatase 68 (34-104) U/L Total Creatine Kinase 3571 H (30-223) U/L Troponin I High Sens 302.9 H* (0-20) pg/ml Total Protein 5.8 L (6.0-8.3) gm/dl Albumin 2.9 L (3.4-5.0) gm/dl Globulin 2.9 (2.5-4.0) gm/dl Albumin/Globulin Ratio 1.0 (0.9-2) Procalcitonin TSH (0.300-4.500) uIu/ml Urine Color Dark Yellow Urine Appearance Cloudy A (Clear) Urine pH 5.0 (4.5-7.5) Ur Specific [place] 1.021 (1.000-1.030) Urine Protein 2+ H (Negative) Urine Glucose (UA) Negative (Negative) Urine Ketones Trace H (Negative) Urine Blood 3+ H (Negative) Urine Nitrite Negative (Negative) Urine Bilirubin Negative (Negative) Urine Urobilinogen Negative (Negative) Ur Leukocyte Esterase Negative (Negative) Urine WBC (Auto) 1-5 (0-5) /hpf Urine RBC (Auto) 10-30 H (0-4) /hpf U Hyaline Cast (Auto) 5-10 H (0-5) /lpf U Epithel Cells (Auto) 10-20 H (0-5) /lpf Urine Bacteria (Auto) Negative (Negative) Urine Yeast Not Reportable SARS-CoV-2 (PCR) NEGATIVE (Negative) Influenza Type A (PCR) Positive A* (Neg) Influenza Type B (PCR) Negative (Neg) RSV (RT-PCR) Negative (Neg) 08/16/22 08/16/22 08/16/22 Range/Units 16:44 16:44 16:44 WBC (4.8-10.8) K/ul RBC (4.63-6.08) M/uL Hgb (14.0-18.0) g/dl Hct (40.1-51.0) % MCV (80.0-100.0) fL MCH (25.0-34.0) pg MCHC (32.0-36.0) g/dL RDW Std Deviation (36.4-46.3) fL RDW Coeff of Melba (11.5-14.5) % Plt Count (130-400) K/uL MPV (9.4-12.4) fL Immature Gran % (Auto) % Neut % (Auto) % Lymph % (Auto) % [place] % (Auto) % Eos % (Auto) % Baso % (Auto) % Neut # (Auto) (1.4-6.5) K/uL Lymph # (Auto) (1.2-3.4) K/uL [place] # (Auto) (0.24-0.82) K/uL Eos # (Auto) (0-0.50) K/uL Baso # (Auto) (0-0.2) K/uL Immature Gran # (Auto) (0.00-0.02) K/uL Toxic Vacuolation Sodium (136-145) mmol/L Potassium 4.1 Chloride (98-107) mmol/L Carbon Dioxide (21-32) mmol/L Anion Gap (3-11) BUN (6-23) mg/dl Creatinine (0.6-1.4) mg/dl Est Cr Clr Drug Dosing ml/min Est GFR ( Amer) ml/min Est GFR (Non-Af Amer) ml/min BUN/Creatinine Ratio (10-20) Glucose (70-99(Fasting)) mg/dl Lactate 1.2 (0.4-2.0) mmol/L Calcium (8.5-10.1) mg/dl Magnesium (1.7-2.4) mg/dl Total Bilirubin (0.2-1.0) mg/dl AST 79 H ALT (7-52) U/L Alkaline Phosphatase (34-104) U/L Total Creatine Kinase 3397 H (30-223) U/L Troponin I High Sens 306.9 H* (0-20) pg/ml Total Protein (6.0-8.3) gm/dl Albumin (3.4-5.0) gm/dl Globulin (2.5-4.0) gm/dl Albumin/Globulin Ratio (0.9-2) Procalcitonin TSH (0.300-4.500) uIu/ml Urine Color Urine Appearance (Clear) Urine pH (4.5-7.5) Ur Specific [place] (1.000-1.030) Urine Protein (Negative) Urine Glucose (UA) (Negative) Urine Ketones (Negative) Urine Blood (Negative) Urine Nitrite (Negative) Urine Bilirubin (Negative) Urine Urobilinogen (Negative) Ur Leukocyte Esterase (Negative) Urine WBC (Auto) (0-5) /hpf Urine RBC (Auto) (0-4) /hpf U Hyaline Cast (Auto) (0-5) /lpf U Epithel Cells (Auto) (0-5) /lpf Urine Bacteria (Auto) (Negative) Urine Yeast SARS-CoV-2 (PCR) (Negative) Influenza Type A (PCR) (Neg) Influenza Type B (PCR) (Neg) RSV (RT-PCR) (Neg) 08/16/22 Range/Units 16:44 WBC (4.8-10.8) K/ul RBC (4.63-6.08) M/uL Hgb (14.0-18.0) g/dl Hct (40.1-51.0) % MCV (80.0-100.0) fL MCH (25.0-34.0) pg MCHC (32.0-36.0) g/dL RDW Std Deviation (36.4-46.3) fL RDW Coeff of Melba (11.5-14.5) % Plt Count (130-400) K/uL MPV (9.4-12.4) fL Immature Gran % (Auto) % Neut % (Auto) % Lymph % (Auto) % [place] % (Auto) % Eos % (Auto) % Baso % (Auto) % Neut # (Auto) (1.4-6.5) K/uL Lymph # (Auto) (1.2-3.4) K/uL [place] # (Auto) (0.24-0.82) K/uL Eos # (Auto) (0-0.50) K/uL Baso # (Auto) (0-0.2) K/uL Immature Gran # (Auto) (0.00-0.02) K/uL Toxic Vacuolation Sodium (136-145) mmol/L Potassium Chloride (98-107) mmol/L Carbon Dioxide (21-32) mmol/L Anion Gap (3-11) BUN (6-23) mg/dl Creatinine (0.6-1.4) mg/dl Est Cr Clr Drug Dosing ml/min Est GFR ( Amer) ml/min Est GFR (Non-Af Amer) ml/min BUN/Creatinine Ratio (10-20) Glucose (70-99(Fasting)) mg/dl Lactate (0.4-2.0) mmol/L Calcium (8.5-10.1) mg/dl Magnesium (1.7-2.4) mg/dl Total Bilirubin (0.2-1.0) mg/dl AST ALT (7-52) U/L Alkaline Phosphatase (34-104) U/L Total Creatine Kinase (30-223) U/L Troponin I High Sens (0-20) pg/ml Total Protein (6.0-8.3) gm/dl Albumin (3.4-5.0) gm/dl Globulin (2.5-4.0) gm/dl Albumin/Globulin Ratio (0.9-2) Procalcitonin 1.14 H TSH (0.300-4.500) uIu/ml Urine Color Urine Appearance (Clear) Urine pH (4.5-7.5) Ur Specific [place] (1.000-1.030) Urine Protein (Negative) Urine Glucose (UA) (Negative) Urine Ketones (Negative) Urine Blood (Negative) Urine Nitrite (Negative) Urine Bilirubin (Negative) Urine Urobilinogen (Negative) Ur Leukocyte Esterase (Negative) Urine WBC (Auto) (0-5) /hpf Urine RBC (Auto) (0-4) /hpf U Hyaline Cast (Auto) (0-5) /lpf U Epithel Cells (Auto) (0-5) /lpf Urine Bacteria (Auto) (Negative) Urine Yeast SARS-CoV-2 (PCR) (Negative) Influenza Type A (PCR) (Neg) Influenza Type B (PCR) (Neg) RSV (RT-PCR) (Neg) Administered Medications Albuterol (Albut/Ipratrop 3mg/0.5mg Neb 3 Ml Vial) 3 ml NEB QIDR BETH; Protocol Stop: 09/15/22 18:59 Last Admin: 08/16/22 18:10 Dose: 3 ml Documented By: CONY Lactated Ringer's (Lr) 1,000 mls @ 80 mls/hr IV .[id number] BETH Stop: 08/17/22 18:44 Last Admin: 08/16/22 18:08 Dose: 80 mls/hr Documented By: CONY Discontinued Medications Acetaminophen (Acetaminophen 500 Mg Tab) 1,000 mg PO NOW STA Stop: 08/16/22 13:38 Last Admin: 08/16/22 13:46 Dose: 1,000 mg Documented By: CONY Sodium Chloride (Nss 1000ml) 1,000 mls @ 999 mls/hr IV .Q1H1M BETH Stop: 08/16/22 14:45 Last Infusion: 08/16/22 14:50 Dose: 0 mls/hr Documented By: Admin: 08/16/22 13:48 Dose: 999 mls/hr Documented By: CONY Sodium Chloride (Nss 1000ml) 1,000 mls @ 999 mls/hr IV .Q1H1M ONE Stop: 08/16/22 16:57 Last Infusion: 08/16/22 17:31 Dose: 0 mls/hr Documented By: Admin: 08/16/22 16:27 Dose: 999 mls/hr Documented By: CONY Oseltamivir Phosphate (Oseltamivir Phosphate 75 Mg Cap) 75 mg PO NOW STA; Protocol Stop: 08/16/22 15:22 Last Admin: 08/16/22 15:41 Dose: 75 mg Documented By: CONY Imaging Data Radiologist's Impression: Cervical Spine CT 08/16/22 13:[address] DOSE: 2281.79 mGy.cm HISTORY: Neck pain. s/p fall TECHNIQUE: Multiaxial CT images of the cervical spine were performed and reformatted in the sagittal and coronal plane without the use of contrast. A dose lowering technique was utilized adhering to the principles of ALARA. COMPARISON: None. FINDINGS: No fractures. No subluxation. Prevertebral soft tissues and the C1-C2 interval are intact. No pneumothorax. Moderate to severe degenerative changes throughout the cervical spine with straightening of the cervical spine. IMPRESSION: No fractures within the cervical spine. ACT 112: Negative or not required by law. Electronically signed by: Óscar Justice M.D. 08/16/2022 2:[address] 08/16/22 13:[address] DOSE: HISTORY: fall, L periorb ecchy TECHNIQUE: Multiaxial CT images of the head were performed without the use of intravenous contrast. Automated exposure control was utilized for this study. A dose lowering technique was utilized adhering to the principles of ALARA. Comparison: None. Findings: Small fluid levels within the maxillary sinuses and left sphenoid sinus. The mastoid air cells are clear. There is left periorbital and left-sided scalp swelling. The calvarium and skull base are intact. There is no mass, hematoma, midline shift, acute infarct. White matter hypodensity is nonspecific but suggestive of microvascular ischemic change. The ventricles and sulci demonstrate mild age-related involutional changes. Impression: No acute intracranial abnormality. Left periorbital and left scalp swelling. ACT 112: Negative or not required by law. Electronically signed by: Óscar Justice M.D. 08/16/2022 2:44 PM Chest X-Ray 08/16/22 13:38 XR chest 1V portable HISTORY: weakness COMPARISON: Chest 07/07/2022. FINDINGS: No pneumothorax. No pleural effusions. There are low lung volumes with chronic interstitial thickening. This is similar to the prior study. No new focal lung consolidations to suggest a pneumonia. No evidence for pulmonary edema. The heart remains top normal in size.. Postoperative changes within the left shoulder. IMPRESSION: Stable low lung volumes and chronic interstitial changes. No acute process within the chest. ACT 112: Negative or not required by law. Electronically signed by: Óscar Justice M.D. 08/16/2022 3:[address] 08/16/22 13:[address] DOSE: HISTORY: fall, L periorbit ecchy TECHNIQUE: Multiaxial CT images of the maxillofacial region were performed and reformatted in the coronal plane without the use of contrast. A dose lowering technique was utilized adhering to the principles of ALARA. COMPARISON: None. FINDINGS: The visualized cervical spine, skull base, pterygoid plates, nasal bones, lamina papyracea, orbital floors, mandible, and zygomatic arches are inta ct. No fractures. Left periorbital soft tissue swelling. Fluid levels within the paranasal sinuses. The mastoid air cells are clear. The globes and retrobulbar fat are intact. IMPRESSION: 1. No fractures within the maxillofacial region. 2. Left periorbital soft tissue swelling. 3. Acute paranasal sinusitis ACT 112: Negative or not required by law. Electronically signed by: Óscar Justice M.D. 08/16/2022 2:48 PM Hip/Pelvis X-Ray 08/16/22 13:38 XR hip RT 2V w pelvis CLINICAL HISTORY: Fall. Right hip pain. COMPARISON STUDY: Pelvis CT 02/25/2021. FINDINGS: No fracture or dislocation within the pelvis or hips. The sacrum appears intact. Multiple brachytherapy seeds noted within the prostate gland. Mild degenerative changes within the bilateral hips. Vascular calcifications are noted. IMPRESSION: No fracture or dislocation within the pelvis or hips. ACT 112: Negative or not required by law. Electronically signed by: Óscar Justice M.D. 08/16/2022 3:[address] 08/16/22 14:[address] DOSE: HISTORY: fall, midline LBP TECHNIQUE: Multiaxial CT images of the lumbar spine were performed and reformatted in the sagittal and coronal plane without the use of contrast. A dose lowering technique was utilized adhering to the principles of ALARA. COMPARISON: None. FINDINGS: Focal indentation at the superior endplate of L2 is consistent with an old mild compression deformity. No associated retropulsion. No acute fracture or subluxation within the lumbar spine. The visualized sacrum is intact. Severe degenerative disc disease at L4-5 and L5-S1. Mild to moderate disc space narrowing at L1-L2 and L2-L3. Moderate to severe facet degenerative changes seen within the lower lumbar spine. There is moderate central canal narrowing at L3- L4 and L4-L5 due to a broad-based posterior disc bulge and ligamentum flavum and facet hypertrophy. IMPRESSION: 1. No acute fractures within the lumbar spine. 2. Old mild superior endplate compression deformity at L2. 3. Degenerative changes as described above. ACT 112: Negative or not required by law. Electronically signed by: Óscar Justice M.D. 08/16/2022 2:56 PM Discharge Plan Visit Data Chief Complaint: Fall ED Provider: Je Tineo Discharge Problem: Rhabdomyolysis, Fall, Elevated troponin, Dizziness, Acute dehydration, Influenza A Forms Stand Alone Forms: [facility] Prescriptions Prescriptions: No Action cholecalciferol (vitamin D3) [Vitamin D3] 10 mcg (400 unit) tablet 800 unit PO QAM Qty: 90 3RF (DME) Wheelchair (Manual) Device See Rx Instructions .Route Qty: 1 0RF Rx Instructions: As directed folic acid 1 mg tablet 1 mg PO QAM Qty: 90 1RF metoprolol tartrate 25 mg tablet 25 mg PO BID Qty: 180 3RF spironolactone 25 mg tablet 25 mg PO QAM Qty: 90 3RF furosemide 20 mg tablet 20 mg PO QAM Qty: 90 3RF simvastatin 40 mg tablet 40 mg PO QPM Qty: 90 3RF potassium chloride 20 mEq tablet extended release 20 meq PO QAM Qty: 90 3RF prednisone 5 mg tablet 5 mg PO DAILY Qty: 90 0RF tamsulosin 0.4 mg capsule 0.4 mg PO QAM Qty: 90 0RF methotrexate sodium 2.5 mg tablet See Rx Instructions .ROUTE .COMPLEX Qty: 78 1RF Dose Instruction: TAKE 3 TABLETS ON WEDNESDAY MORNING AND 3 TABLETS ON WEDNESDAY AFTERNOON (TOTAL DOSE OF 15MG WEEKLY ON FRIDAYS) Rx Instructions: TAKE 3 TABLETS ON WEDNESDAY MORNING AND 3 TABLETS ON WEDNESDAY AFTERNOON (TOTAL DOSE OF 15MG WEEKLY ON FRIDAYS) aripiprazole 5 mg tablet 5 mg PO QAM Referrals Referrals: Pro,Daniel Bryant MD [Primary Care Provider] -
[2022-08-16] MEDS ORDERED: ACETAMINOPHEN 500 MG TAB PO STA (13:37)
[2022-08-16] MEDS ORDERED: SODIUM CHLORIDE 0.9% 1000ML 1,000 ML IV SCH (13:45)
[2022-08-16 13:58] LABS: Hematocrit (blood only) 40.5 % (40.1-51.0); Hemoglobin 13.7 g/dl (14.0-18.0); Mean Corpuscular Hemoglobin 32.5 pg (25.0-34.0); Mean Corpuscular Hgb Conc 33.8 g/dL (32.0-36.0); Mean Platelet Volume 11.9 fL (9.4-12.4); Platelet Count 230 K/uL (130-400); RDW Coefficient of Variation 16.1 % (11.5-14.5); RDW Standard Deviation 56.5 fL (36.4-46.3); Red Blood Count 4.22 M/uL (4.63-6.08); White Blood Count 10.74 K/ul (4.8-10.8)
[2022-08-16 14:25] LABS: Basophils # (auto) 0.01 K/uL (0-0.2); Basophils % (auto) 0.1 %; Immature Granulocytes # (auto) 0.07 K/uL (0.00-0.02); Immature Granulocytes % (auto) 0.7 %; Lymphocytes % (auto) 4.7 %; Monocytes # (auto) 0.45 K/uL (0.24-0.82); Monocytes % (auto) 4.2 %; Neutrophils # (auto) 9.71 K/uL (1.4-6.5); Neutrophils % (auto) 90.3 %; Toxic Vacuolation 1+
[2022-08-16 14:34] LABS: Influenza A virus by PCR Positive (Neg); Influenza B virus by PCR Negative (Neg); RSV by PCR Negative (Neg)
[2022-08-16 14:45] LABS: SARS CoV2 RNA(COVID-19) Ceph NEGATIVE (Negative)
--- NOTE | 2022-08-16 14:46 | CT Scan Report ---
HEAD CT NONCONTRAST CT DOSE: HISTORY: fall, L periorb ecchy TECHNIQUE: Multiaxial CT images of the head were performed without the use of intravenous contrast. A utomated exposure control was utilized for this study. A dose lowering technique was utilized adheri ng to the principles of ALARA. Comparison: None. Findings: Small fluid levels within the maxillary sinuses and left sphenoid sinus. The mastoid air ce lls are clear. There is left periorbital and left-sided scalp swelling. The calvarium and skull base are intact. There is no mass, hematoma, midline shift, acute infarct. White matter hypodensity is non specific but suggestive of microvascular ischemic change. The ventricles and sulci demonstrate mild a ge-related involutional changes. Impression: No acute intracranial abnormality. Left periorbital and left scalp swelling. ACT 112: Negative or not required by law. Electronically signed by: Óscar Justice M.D. 08/16/2022 2:44 PM
--- NOTE | 2022-08-16 14:50 | CT Scan Report ---
MAXILLOFACIAL CT CT DOSE: HISTORY: fall, L periorbit ecchy TECHNIQUE: Multiaxial CT images of the maxillofacial region were performed and reformatted in the cor onal plane without the use of contrast. A dose lowering technique was utilized adhering to the princ iples of KALEY. COMPARISON: None. FINDINGS: The visualized cervical spine, skull base, pterygoid plates, nasal bones, lamina papyracea, orbital floors, mandible, and zygomatic arches are intact. No fractures. Left periorbital soft tissu e swelling. Fluid levels within the paranasal sinuses. The mastoid air cells are clear. The globes an d retrobulbar fat are intact. IMPRESSION: 1. No fractures within the maxillofacial region. 2. Left periorbital soft tissue swelling. 3. Acute paranasal sinusitis ACT 112: Negative or not required by law. Electronically signed by: Óscar Justice M.D. 08/16/2022 2:48 PM
--- NOTE | 2022-08-16 14:53 | CT Scan Report ---
CERVICAL SPINE CT CT DOSE: 2281.79 mGy.cm HISTORY: Neck pain. s/p fall TECHNIQUE: Multiaxial CT images of the cervical spine were performed and reformatted in the sagittal and coronal plane without the use of contrast. A dose lowering technique was utilized adhering to th e principles of ALARA. COMPARISON: None. FINDINGS: No fractures. No subluxation. Prevertebral soft tissues and the C1-C2 interval are intact. No pneumothorax. Moderate to severe degenerative changes throughout the cervical spine with straighte chelsy of the cervical spine. IMPRESSION: No fractures within the cervical spine. ACT 112: Negative or not required by law. Electronically signed by: Óscar Justice M.D. 08/16/2022 2:52 PM
--- NOTE | 2022-08-16 14:58 | CT Scan Report ---
LUMBAR SPINE CT CT DOSE: HISTORY: fall, midline LBP TECHNIQUE: Multiaxial CT images of the lumbar spine were performed and reformatted in the sagittal an d coronal plane without the use of contrast. A dose lowering technique was utilized adhering to the principles of ALARA. COMPARISON: None. FINDINGS: Focal indentation at the superior endplate of L2 is consistent with an old mild compression deformity. No associated retropulsion. No acute fracture or subluxation within the lumbar spine. The visualized sacrum is intact. Severe degenerative disc disease at L4-5 and L5-S1. Mild to moderate di sc space narrowing at L1-L2 and L2-L3. Moderate to severe facet degenerative changes seen within the lower lumbar spine. There is moderate central canal narrowing at L3-L4 and L4-L5 due to a broad-based posterior disc bulge and ligamentum flavum and facet hypertrophy. IMPRESSION: 1. No acute fractures within the lumbar spine. 2. Old mild superior endplate compression deformity at L2. 3. Degenerative changes as described above. ACT 112: Negative or not required by law. Electronically signed by: Óscar Justice M.D. 08/16/2022 2:56 PM
[2022-08-16] MEDS ORDERED: OSELTAMIVIR PHOSPHATE 75 MG CAP PO STA (15:21)
--- NOTE | 2022-08-16 15:21 | XRay Report ---
XR chest 1V portable HISTORY: weakness COMPARISON: Chest 07/07/2022. FINDINGS: No pneumothorax. No pleural effusions. There are low lung volumes with chronic interstitial thickening. This is similar to the prior study. No new focal lung consolidations to suggest a pneumo krystin. No evidence for pulmonary edema. The heart remains top normal in size.. Postoperative changes wi thin the left shoulder. IMPRESSION: Stable low lung volumes and chronic interstitial changes. No acute process within the chest. ACT 112: Negative or not required by law. Electronically signed by: Óscar Justice M.D. 08/16/2022 3:20 PM
--- NOTE | 2022-08-16 15:24 | XRay Report ---
XR hip RT 2V w pelvis CLINICAL HISTORY: Fall. Right hip pain. COMPARISON STUDY: Pelvis CT 02/25/2021. FINDINGS: No fracture or dislocation within the pelvis or hips. The sacrum appears intact. Multiple b rachytherapy seeds noted within the prostate gland. Mild degenerative changes within the bilateral hi ps. Vascular calcifications are noted. IMPRESSION: No fracture or dislocation within the pelvis or hips. ACT 112: Negative or not required by law. Electronically signed by: Óscar Justice M.D. 08/16/2022 3:22 PM
--- NOTE | 2022-08-16 15:42 | History & Physical Report ---
Date of Service August 16, 2022 Assessment & Plan (1) Fall: Plan: -Admit to med tele -The patient is currently afebrile, hemodynamically stable, and stable on his baseline 3L NC -Patient sustained a fall at home at an unknown time and was likely down overnight until he was found by his Son today. Last known well was yesterday around 3 pm, not on anticoagulation -Per the patient, he was feeling dizzy at the time of the fall, does not remember much after -No acute fractures noted on extensive trauma workup in the ED -Initial Ck elevated at 3517, likely due to being on the ground overnight. Renal function is currently stable, will continue light hydration with LR at 100 mL/hr x 2 bags -Continue to monitor on tele for arrhythmias, will obtain TTE to monitor for valvular abnormalities, obtain orthostatic vitals, PT/OT consuls placed -Cannot rule out possible stroke as the initial cause of his fall, CT of the head was negative in the ED, will obtain MRI of the brain WO con for further workup as-well-as TTE -Fall precautions ordered -AM CBC, BMP -Will start with BL SCD's for DVT PPX for now, can add chemical PPX when acute bleeding can be ruled out after MRI (2) Hypertension: Plan: -Noted to be hemodynamically stable but low normal at 98/60 -S/P 1L NSS bolus in the ED -Continue metoprolol but will hold lasix and spironolactone for now (3) Elevated troponin: Plan: -Initial trop elevated at 302, patient is without chest pain -Initial ECG in the ED with extensive artifact, will repeat another on admission for further evaluation -Will repeat another STAT then trend q6h until it begins to fall (4) Elevated CK: Plan: -Noted to be in the 3000's in the ED, likely from being on the ground overnight -S/P 1L NSS bolus in the ED, currently receiving another L now -Stable renal function -Continue light IV hydration, trend CK q6h until it reaches a plateau and begins to fall (5) Influenza A: Plan: -Found on initial labs in the ED -Currently stable on 3L NC -S/P 75 mg PO tamiful -Continue with pulm hygiene, scheduled DuoNebs, prn Robitussin, home O2 and will continue BID Tamiful -Continue to monitor on tele and pulse oximetry (6) Depression: Plan: -Continue Abilify (7) Peripheral neuropathy: Plan: -Continue folic acid (8) GERD (gastroesophageal reflux disease): Plan: -Will order pantoprazole for ulcer prophylaxis while admitted (9) Chronic respiratory failure with hypoxia: Plan: -Currently stable on baseline 3L -Bas -Will start scheduled pulm hygiene, schedule DuoNebs, prn Robitussin (10) Anemia: Plan: -Continue Vitamin D and folic acid (11) Temporal arteritis: Plan: -Patient currently takes methotrexate and 5 mg PO pred daily, continue both (12) Dyslipidemia: Plan: -Hold statin until his CK reaches normal limits Plan The patient was discussed with Dr. García at the time of the admission History of Present Illness Chief Complaint: Fall Primary Care Provider: Daniel Patten MD Gio is a 77yowm with h/o depression, COPD on O2, HFpEF (LVEF of > 70% as of 02/18/21) , cor pulmonale, sleep apnea, GERD, Temporal Arteritis on MTX, Ambulatory dysfunction in WC, Peripheral neuropathy, chronic pancreatitis, HTN, DLD, and Prostate CA who presented to the [facility] ED on 08/16/21 with a chief complaint of being found down by his son today. In the ED the patient was found to be afebrile, hemodynamically stable at 98/60, HR of 94, and stable on 3L NC. Labs were remarkable for a WBC WNL, stable Hgb and platelets, stable Cr at 0.89, corrected calcium of 9.0, otherwise stable electrolytes, initial High Sensitivity trop of 302 with initial CK level of 3517, TSH of 2.302, Covid and RSV negative but Influenza A positive, CT of the head was read as "No acute intracranial abnormality. Left periorbital and left scalp swelling.". Ct of the cervical spine was read as "No fractures within the cervical spine.". Chest xray was read as "Stable low lung volumes and chronic interstitial changes. No acute process within the chest.". CT of the face was read as "1. No fractures within the maxillofacial region. 2. Left periorbital soft tissue swelling. 3. Acute paranasal sinusitis". Xrays of the right hip and pelvis was read as "No fracture or dislocation within the pelvis or hips.". CT of the lumbar spine was read as "1. No acute fractures within the lumbar spine. 2. Old mild superior endplate compression deformity at L2. 3. Degenerative changes as described above.". Prior to admission the patient was given 1g IV tylenol, 1L NSS bolus, and 75 mg PO Tamiflu. At the time of the exam the patient was lying in bed sleeping comfortably, I was able to wake him by calling his name. Prior to going into his room I spoke with his Son to obtain more history. His son states that the patient's last known well was yesterday between 3:15-5pm. His son last spoke to the patient at 3:15 yesterday. The patient has [employer] come into his home daily but there is a time between 3-5pm where he has no caregivers and his by himself. His son states that he went over to his father's home ([facility]) around noon to check on him. He found his father, face-down, it appeared as though his father had vomited and also had a bowel movement and urinated while down. His son states that his father seemed a little more confused yesterday, like he does when he gets a UTI. He confirmed that his father is a DNR/DNI and has a living will. At the time of the exam the patient was easy to wake and was in no acute distress. It took a few minutes for him to full wake, he denied any discomfort at the start of my exam. When asked, the patient states he does remember the events prior to his fall. He states that he got up yesterday afternoon to walk to the bathroom and started to feel dizzy. He fell to the ground and said that he landed on his buttocks, he is unable to give me much more information besides that. He denies chest pain, SOB, abdominal pain, nausea, diarrhea, dysuria, and hematuria. Please refer to Dr. García's attestation for any changes to the treatment plan. Allergies Allergy/AdvReac Type Severity Reaction Status Date / Time No Known Allergies Allergy Unknown Verified 08/16/22 15:43 Home Medications Medication Instructions Recorded Confirmed Type cholecalciferol (vitamin D3) 10 800 unit PO QAM #90 tabs 10/21/20 08/16/22 Rx mcg (400 unit) tablet (Vitamin D3) Wheelchair (Manual) #1 ea 06/30/21 08/16/22 Rx folic acid 1 mg tablet 1 mg PO QAM #90 tabs 07/30/21 08/16/22 Rx metoprolol tartrate 25 mg tablet 25 mg PO BID #180 tabs 09/22/21 08/16/22 Rx spironolactone 25 mg tablet 25 mg PO QAM #90 tabs 11/17/21 08/16/22 Rx furosemide 20 mg tablet 20 mg PO QAM #90 tabs 12/05/21 08/16/22 Rx simvastatin 40 mg tablet 40 mg PO QPM #90 tabs 12/05/21 08/16/22 Rx potassium chloride 20 mEq 20 meq PO QAM #90 tabs 12/08/21 08/16/22 Rx tablet,extended release aripiprazole 5 mg tablet 5 mg PO QAM 04/10/22 08/16/22 History prednisone 5 mg tablet 5 mg PO DAILY #90 tabs 05/19/22 08/16/22 Rx tamsulosin 0.4 mg capsule 0.4 mg PO QAM #90 caps 05/19/22 08/16/22 Rx methotrexate sodium 2.5 mg tablet See Rx Instructions .Route 05/29/22 08/16/22 Rx .COMPLEX #78 tabs Past Med/Surg History Medical History Achalasia KAYKAY (acute kidney injury) Anxiety and depression Cholelithiasis EUS 11/02 multiple Chronic obstructive pulmonary disease Chronic respiratory failure with hypoxia Degenerative disc disease Depression Esophageal dilatation History of malignant neoplasm of prostate History of nicotine dependence History of non-healing wound PT'S SON REPORTS PT HAD THESE (TO LOWER LEGS) AND HOME NURSING CHECKS BUT HAVE IMPROVED GREATLY History of pneumonia Hx of pancreatitis Hypertension On home oxygen therapy 3lpm prn Osteoarthritis Pancreatic cyst Upper EUS on 11/02-5mm Peripheral neuropathy bilateral hands & feet Solitary pulmonary nodule Temporal arteritis Weight gain Surgical History H/O toe surgery History of arthroscopic surgery of shoulder bilateral History of colonoscopy History of cystoscopy with stent History of esophagogastroduodenoscopy (EGD) History of nasal septoplasty History of tonsillectomy Hx of shoulder surgery open left shoulder Family History Sister Breast cancer Denies family history of Ovarian cancer Prostate cancer Deep vein thrombosis Myocardial infarction Lung cancer Colorectal cancer Hypertension Social History Smoking Status: Former smoker Tobacco Type: Cigarettes Age Started Using Tobacco: 17; Age Quit Using Tobacco: 49; packs per day: 1; Second Hand Exposure: Yes; Hx Alcohol Use: No Hx Substance Use: No Preferred Language: [place]an Communication Ability: Unable Visual Impairment: No Limitations Hearing Ability: Normal Tap And Die Maker Technician Required: No Beliefs That Will Affect Care: None marital status: Single Current Living Situation: Alone current occupational status: retired 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 Physical Exam Physical Exam: Physical Exam: General: In no acute distress, stated age, chronically ill-appearing, non- toxic appearing HEENT: Normocephalic, Patient with large hematoma/swelling over the left eye/orbit, no bleeding or drainage, patient able to open both eye without issue, no scleral icterus, pupils around round, symmetrical, and reactive to light, dry mucus membranes, trachea midline, no thyromegaly Chest/Pulm: No respiratory distress, symmetrical chest expansion, clear breath sounds throughout Cardiac: RRR, no murmurs noted Abdomen: Negative for ascites and bruising, normoactive bowel sounds, soft, non-tender to palpation throughout Musculoskeletal: Patient with abrasions/skin tears on the BL lower anterior ribs which are not bleed and are tender to palpation, No pain to palpation or trauma noted on the scalp, cervical spine, upper extremities, and lower extremities, Symmetrical and without signs of acute trauma, upper and lower extremities with full ROM, no atrophy, spasticity, or flaccidity Extremities: Radial, dorsalis pedis, and posterior tibial pulses are intact and symmetrical, no edema noted in the BL LE's Skin: Warm, dry, as described above Neuro: Alert and oriented to person, month, and year, no focal defects, CN II-XII tested and intact, no tremors noted Psych: No acute distress, calm and cooperative during the exam Results & Data Results & Data ([facility]) Vital Signs (Past 12 Hours) Vital Signs Temp Pulse Resp BP Pulse Ox O2 Del Method O2 Flow Rate 08/16/22 15:30 94 H 18 98/60 L 96 Nasal Cannula 3 08/16/22 15:18 94 H 18 108/66 97 Nasal Cannula 3 08/16/22 14:00 84 18 139/64 94 Nasal Cannula 3 08/16/22 13:31 97 H 20 110/91 95 Nasal Cannula 3 08/16/22 13:41 95 Nasal Cannula 3 08/16/22 13:19 36.3 C L 99 H 20 124/82 97 Nasal Cannula 3 Laboratory Results Abnormal lab results 08/16/22 08/16/22 08/16/22 Range/Units 13:26 13:48 14:51 RBC 4.22 L (4.63-6.08) M/uL Hgb 13.7 L (14.0-18.0) g/dl RDW Std Deviation 56.5 H (36.4-46.3) fL RDW Coeff of Melba 16.1 H (11.5-14.5) % Neut # (Auto) 9.71 H (1.4-6.5) K/uL Lymph # (Auto) 0.50 L (1.2-3.4) K/uL Immature Gran # (Auto) 0.07 H (0.00-0.02) K/uL BUN/Creatinine Ratio 23.6 H (10-20) Glucose 112 H (70-99(Fasting)) mg/dl Calcium 8.1 L (8.5-10.1) mg/dl Total Creatine Kinase 3571 H (30-223) U/L Troponin I High Sens 302.9 H* (0-20) pg/ml Total Protein 5.8 L (6.0-8.3) gm/dl Albumin 2.9 L (3.4-5.0) gm/dl Urine Appearance (Clear) Urine Protein (Negative) Urine Ketones (Negative) Urine Blood (Negative) Urine RBC (Auto) (0-4) /hpf U Hyaline Cast (Auto) (0-5) /lpf U Epithel Cells (Auto) (0-5) /lpf Influenza Type A (PCR) Positive A* (Neg) 08/16/22 Range/Units 15:25 RBC (4.63-6.08) M/uL Hgb (14.0-18.0) g/dl RDW Std Deviation (36.4-46.3) fL RDW Coeff of Melba (11.5-14.5) % Neut # (Auto) (1.4-6.5) K/uL Lymph # (Auto) (1.2-3.4) K/uL Immature Gran # (Auto) (0.00-0.02) K/uL BUN/Creatinine Ratio (10-20) Glucose (70-99(Fasting)) mg/dl Calcium (8.5-10.1) mg/dl Total Creatine Kinase (30-223) U/L Troponin I High Sens (0-20) pg/ml Total Protein (6.0-8.3) gm/dl Albumin (3.4-5.0) gm/dl Urine Appearance Cloudy A (Clear) Urine Protein 2+ H (Negative) Urine Ketones Trace H (Negative) Urine Blood 3+ H (Negative) Urine RBC (Auto) 10-30 H (0-4) /hpf U Hyaline Cast (Auto) 5-10 H (0-5) /lpf U Epithel Cells (Auto) 10-20 H (0-5) /lpf Influenza Type A (PCR) (Neg) Diagnostic Findings Cervical Spine CT 08/16/22 13:[address] DOSE: 2281.79 mGy.cm HISTORY: Neck pain. s/p fall TECHNIQUE: Multiaxial CT images of the cervical spine were performed and reformatted in the sagittal and coronal plane without the use of contrast. A dose lowering technique was utilized adhering to the principles of ALARA. COMPARISON: None. FINDINGS: No fractures. No subluxation. Prevertebral soft tissues and the C1-C2 interval are intact. No pneumothorax. Moderate to severe degenerative changes throughout the cervical spine with straightening of the cervical spine. IMPRESSION: No fractures within the cervical spine. ACT 112: Negative or not required by law. Electronically signed by: Óscar Justice M.D. 08/16/2022 2:[address] 08/16/22 13:[address] DOSE: HISTORY: fall, L periorb ecchy TECHNIQUE: Multiaxial CT images of the head were performed without the use of intravenous contrast. Automated exposure control was utilized for this study. A dose lowering technique was utilized adhering to the principles of ALARA. Comparison: None. Findings: Small fluid levels within the maxillary sinuses and left sphenoid sinus. The mastoid air cells are clear. There is left periorbital and left-sided scalp swelling. The calvarium and skull base are intact. There is no mass, hematoma, midline shift, acute infarct. White matter hypodensity is nonspecific but suggestive of microvascular ischemic change. The ventricles and sulci demonstrate mild age-related involutional changes. Impression: No acute intracranial abnormality. Left periorbital and left scalp swelling. ACT 112: Negative or not required by law. Electronically signed by: Óscar Justice M.D. 08/16/2022 2:44 PM Chest X-Ray 08/16/22 13:38 XR chest 1V portable HISTORY: weakness COMPARISON: Chest 07/07/2022. FINDINGS: No pneumothorax. No pleural effusions. There are low lung volumes with chronic interstitial thickening. This is similar to the prior study. No new focal lung consolidations to suggest a pneumonia. No evidence for pulmonary edema. The heart remains top normal in size.. Postoperative changes within the left shoulder. IMPRESSION: Stable low lung volumes and chronic interstitial changes. No acute process within the chest. ACT 112: Negative or not required by law. Electronically signed by: Óscar Justice M.D. 08/16/2022 3:[address] 08/16/22 13:[address] DOSE: HISTORY: fall, L periorbit ecchy TECHNIQUE: Multiaxial CT images of the maxillofacial region were performed and reformatted in the coronal plane without the use of contrast. A dose lowering technique was utilized adhering to the principles of ALARA. COMPARISON: None. FINDINGS: The visualized cervical spine, skull base, pterygoid plates, nasal bones, lamina papyracea, orbital floors, mandible, and zygomatic arches are intact. No fractures. Left periorbital soft tissue swelling. Fluid levels within the paranasal sinuses. The mastoid air cells are clear. The globes and retrobulbar fat are intact. IMPRESSION: 1. No fractures within the maxillofacial region. 2. Left periorbital soft tissue swelling. 3. Acute paranasal sinusitis ACT 112: Negative or not required by law. Electronically signed by: Óscar Justice M.D. 08/16/2022 2:48 PM Hip/Pelvis X-Ray 08/16/22 13:38 XR hip RT 2V w pelvis CLINICAL HISTORY: Fall. Right hip pain. COMPARISON STUDY: Pelvis CT 02/25/2021. FINDINGS: No fracture or dislocation within the pelvis or hips. The sacrum appears intact. Multiple brachytherapy seeds noted within the prostate gland. Mild degenerative changes within the bilateral hips. Vascular calcifications are noted. IMPRESSION: No fracture or dislocation within the pelvis or hips. ACT 112: Negative or not required by law. Electronically signed by: Óscar Justice M.D. 08/16/2022 3:[address] 08/16/22 14:[address] DOSE: HISTORY: fall, midline LBP TECHNIQUE: Multiaxial CT images of the lumbar spine were performed and reformatted in the sagittal and coronal plane without the use of contrast. A dose lowering technique was utilized adhering to the principles of ALARA. COMPARISON: None. FINDINGS: Focal indentation at the superior endplate of L2 is consistent with an old mild compression deformity. No associated retropulsion. No acute fracture or subluxation within the lumbar spine. The visualized sacrum is intact. Severe degenerative disc disease at L4-5 and L5-S1. Mild to moderate disc space narrowing at L1-L2 and L2-L3. Moderate to severe facet degenerative changes seen within the lower lumbar spine. There is moderate central canal narrowing at L3- L4 and L4-L5 due to a broad-based posterior disc bulge and ligamentum flavum and facet hypertrophy. IMPRESSION: 1. No acute fractures within the lumbar spine. 2. Old mild superior endplate compression deformity at L2. 3. Degenerative changes as described above. ACT 112: Negative or not required by law. Electronically signed by: Óscar Justice M.D. 08/16/2022 2:56 PM ECG Additional Comments: Initial ECG with too much artifact for adequate interpretation, will repeat ano ther at the time of the admission Code Status & VTE Plan Code Status DNR/DNI VTE Prophylaxis Plan VTE Prophylaxis will be ordered: Yes Supervising Physician Co-Signing Physician Notes Patient was seen and examined independently I discussed the case with Larry CAIN I reviewed pertinent past medical social family history and also the plan of care and agree with the plan of care. Patient had a fall at home. He is found to floor by his son after being unsupervised for period of time. He sustained a contusion to his left thigh he has mild elevation of his CK initial screening evaluation did not find significant abnormalities of his hip section of influenza. Patient is a with chronic respiratory failure usually on 3 L of oxygen at home. He is on a significant respiratory distress but the influence of certainly could have caused metabolic encephalopathy to be part of the fall. Patient be brought in our facility he will of Tamiflu supporting his respiratory status and have PT OT evaluation. Certainly could have a concussion with a degree of contusion around his eye. Physical examination his sclera is not with ecchymosis he does fall asleep easily he does try to answer questions he may have some baseline memory impairment his card exam is regular with a systolic murmur his lungs are with reasonable air movement no focal loss no wheeze his abdomen is NABS abrasions about his bottom of his rib cage and his extremities are without significant edema Any exceptions will be noted below PG Care Time/CCT Total # of Minutes Spent Total Time Spent with Patient: Total time spent is greater than 50% in coordination of care (as documented) at patient's floor/unit and/or counseling patient: [place] [address] Initial Inpt Care Lvl 3 Patient Type Established Medical Decision Making High Complexity Diagnoses Fall W19.XXXA Hypertension I10 Elevated troponin R77.8 Elevated CK R74.8 Influenza A J10.1 Depression F32.9 Peripheral neuropathy G62.9 GERD (gastroesophageal reflux disease) K21.9 Chronic respiratory failure with hypoxia J96.11 Anemia D64.9 Temporal arteritis M31.6 Dyslipidemia E78.5
[2022-08-16] MEDS ORDERED: SODIUM CHLORIDE 0.9% 1000ML 1,000 ML IV ONE (15:57)
[2022-08-16 15:59] LABS: Alanine Aminotransferase 28 U/L (7-52); Albumin Level 2.9 gm/dl (3.4-5.0); Alkaline Phosphatase 68 U/L (34-104); Anion Gap 9 (3-11); BUN Creatinine Ratio 23.6 (10-20); Bilirubin,Total 0.8 mg/dl (0.2-1.0); Blood Urea Nitrogen 21 mg/dl (6-23); Calcium 8.1 mg/dl (8.5-10.1); Carbon Dioxide 25 mmol/L (21-32); Chloride 106 mmol/L (98-107); Creatine Kinase 3571 U/L (30-223); Creatinine Clr Calc Pharmacy 77.3 ml/min; Est GFR (African American) 94.9 ml/min; Est GFR (Non-African American) 81.9 ml/min; Globulin 2.9 gm/dl (2.5-4.0); Glucose 112 mg/dl (70-99(Fasting)); Magnesium 1.9 mg/dl (1.7-2.4); Sodium 140 mmol/L (136-145); Total Protein 5.8 gm/dl (6.0-8.3); Troponin I High Sensitivity 302.9 pg/ml (0-20)
[2022-08-16 16:12] LABS: Appearance Urine Cloudy (Clear); Bacteria Urine Automated Negative (Negative); Bilirubin Urine Negative (Negative); Blood Urine 3+ (Negative); Color Urine Dark Yellow; Glucose Urine UA Negative (Negative); Ketones Urine Trace (Negative); Leukocyte Esterase Urine Negative (Negative); Nitrite Urine Negative (Negative); Protein Urine 2+ (Negative); Specific Gravity Urine 1.021 (1.000-1.030); Urobilinogen Urine Negative (Negative)
[2022-08-16] MEDS ORDERED: PHARMACIST DISCHARGE MED REC CONSULT PRN (16:45)
[2022-08-16 17:18] LABS: Potassium 4.1 mmol/L (3.5-5.1)
[2022-08-16 17:43] LABS: Troponin I High Sensitivity 306.9 pg/ml (0-20)
[2022-08-16] MEDS: LACTATED RINGER'S 1,000 ML IV SCH (18:08)
[2022-08-16] MEDS: ALBUT/IPRATROP 3MG/0.5MG NEB 3 ML VIAL NEB SCH (18:10)
[2022-08-16] MEDS: OSELTAMIVIR PHOSPHATE 75 MG CAP PO SCH (21:17)
[2022-08-16] MEDS ORDERED: METOPROLOL TARTRATE 25 MG TAB PO STA (21:50)
[2022-08-17 00:58] LABS: Troponin I High Sensitivity 343.8 pg/ml (0-20)
[2022-08-17] MEDS: LACTATED RINGER'S 1,000 ML IV SCH (05:53)
[2022-08-17] MEDS: ALBUT/IPRATROP 3MG/0.5MG NEB 3 ML VIAL NEB SCH (07:14)
[2022-08-17] MEDS: OSELTAMIVIR PHOSPHATE 75 MG CAP PO SCH ×2 (07:35→21:43)
[2022-08-17] MEDS: ARIPiprazole 5 MG TAB PO SCH (07:35)
[2022-08-17] MEDS: FOLIC ACID 1 MG TAB PO SCH (07:36)
[2022-08-17] MEDS: POTASSIUM CHLORIDE CRTAB 20 MEQ TABCR PO SCH (07:36)
[2022-08-17] MEDS: TAMSULOSIN HCL 0.4 MG CAP PO SCH (07:36)
[2022-08-17] MEDS: predniSONE 5 MG TAB PO SCH (07:36)
[2022-08-17] MEDS: METOPROLOL TARTRATE 25 MG TAB PO SCH ×2 (07:37→21:42)
--- NOTE | 2022-08-17 10:14 | Magnetic Resonance Report ---
MR brain wo con HISTORY: 77 years-old Male stroke workup acute stroke like symptoms COMPARISON: Head CT August 16, 2022 TECHNIQUE: Multiplanar multisequence MRI of the brain was obtained without the use of IV contrast. FINDINGS: Chick Grader localizer images demonstrate no gross extracranial abnormality. The midline structures appear u nremarkable. Degenerative changes of the cervical spine with moderate central canal stenosis at C2-C3 , the central canal narrowed to approximately 6 mm in AP dimension. There is no restricted diffusion to suggest acute or subacute infarct. No acute intracranial hemorrha ge, midline shift, abnormal extra-axial collection, hydrocephalus or intracranial mass identified. No pathologic blooming artifact on the T2 star series. Involutional changes. Mild T2/FLAIR hyperintense foci noted throughout the white matter. The cerebral venous sinuses and major arterial flow voids appear patent. Moderate-sized mastoid effus ions. Moderate mucosal thickening of the paranasal sinuses with maxillary air-fluid levels. Moderate sized left scalp contusions. Unremarkable appearance of the orbits. IMPRESSION: 1. No acute intracranial abnormality. No acute or subacute infarct. 2. Involutional changes with mild chronic microvascular ischemic disease. 3. Left scalp contusions redemonstrated. 4. Moderate paranasal sinus disease with acute maxillary sinusitis. ACT 112: Negative or not required by law. The above report was generated using voice recognition software. It may contain grammatical, syntax o r spelling errors. Electronically signed by: Addy Larose M.D. 08/17/2022 10:13 AM
[2022-08-17] MEDS ORDERED: ALBUT/IPRATROP 3MG/0.5MG NEB 3 ML VIAL NEB PRN (10:18)
[2022-08-17] MEDS ORDERED: ACYCLOVIR 200 MG CAP PO SCH (15:00)
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
[2022-08-17] MEDS: ACYCLOVIR 400 MG TAB PO SCH ×3 (17:00→21:43)
[2022-08-17] MEDS: guaiFENesin SUGAR FREE 200 MG/10 ML UDC PO PRN (18:40)
--- NOTE | 2022-08-17 18:51 | Electrocardiogram Report ---
Test Reason : Blood Pressure : / mmHG Vent. Rate : 101 BPM Atrial Rate : 101 BPM P-R Int : 214 ms QRS Dur : 072 ms QT Int : 396 ms P-R-T Axes : -02 156 051 degrees QTc Int : 513 ms Poor data quality, interpretation may be adversely affected Sinus tachycardia Poor R wave progression, consider anterior AR vs. lead placement vs. LVH Left posterior fascicular block Abnormal ECG When compared with ECG of 18-FEB-2021 07:05, Nonspecific T wave abnormality no longer evident in Lateral leads Confirmed by Toni Ortiz ([id number]) on 08/17/2022 6:51:15 PM Referred By: REFERRED SELF Confirmed By:Johann Ortiz
--- NOTE | 2022-08-17 18:54 | Electrocardiogram Report ---
Test Reason : Blood Pressure : / mmHG Vent. Rate : 073 BPM Atrial Rate : 073 BPM P-R Int : 236 ms QRS Dur : 084 ms QT Int : 410 ms P-R-T Axes : 087 229 055 degrees QTc Int : 451 ms Sinus rhythm with 1st degree A-V block with Premature atrial complexes Incomplete right bundle branch block Possible Inferior infarct , age undetermined Abnormal ECG When compared with ECG of 16-AUG-2022 13:33, (unconfirmed) Left posterior fascicular block is no longer Present QT has shortened Confirmed by Toni Ortiz ([id number]) on 08/17/2022 6:54:04 PM Referred By: REFERRED SELF Confirmed By:Johann Ortiz
[2022-08-17 18:55] LABS: A calco-baum cmplx NotReported Not Detected (NotDetected); Bact fragilis Not Reported Not Detected (NotDetected); C auris Not Reported Not Detected (NotDetected); Calbicans Not Reported Not Detected (NotDetected); Candida glabrata Not Reported Not Detected (NotDetected); Candida krusei Not Reported Not Detected (NotDetected); Cneoformans/gatti Not Reported Not Detected (NotDetected); Cparapsilosis Not Reported Not Detected (NotDetected); Ctropicalis Not Reported Not Detected (NotDetected); E cloacae compx Not Reported Not Detected (NotDetected); Efaecalis Not Reported Not Detected (NotDetected); Efaecium Not Reported Not Detected (NotDetected); Enterobacterales Not Reported Not Detected (NotDetected); Escherichia coli Not Reported Not Detected (NotDetected); H influenzae Not Reported Not Detected (NotDetected); K aerogenes Not Reported Not Detected (NotDetected); Koxytoca Not Reported Not Detected (NotDetected); Kpneumoniae grp Not Reported Not Detected (NotDetected); Lmonocyt Not Reported Not Detected (NotDetected); N meningitidis Not Reported Not Detected (NotDetected); P aeruginosa Not Reported Not Detected (NotDetected); Proteus spp Not Reported Not Detected (NotDetected); Salmonella spp Not Reported Not Detected (NotDetected); Smarcescens Not Reported Not Detected (NotDetected); Staph lugdunensis Not Reported Not Detected (NotDetected); Staph spp. Not Reported DETECTED (NotDetected); Staphaureus Not Reported Not Detected (NotDetected); Staphepi Not Reported DETECTED (NotDetected); Stenmaltophilia Not Reported Not Detected (NotDetected); Strep agal(GrpB) Not Reported Not Detected (NotDetected); Strep pneum Not Reported Not Detected (NotDetected); Strep pyog (GrpA) Not Reported Not Detected (NotDetected); Strep spp Not Reported Not Detected (NotDetected); mecAC Resistant Gene DETECTED (NotDetected)
[2022-08-17 19:01] LABS: Staphylococcus epidermidis DETECTED (NotDetected); Staphylococcus spp. DETECTED (NotDetected)
[2022-08-18] MEDS: predniSONE 5 MG TAB PO SCH (08:39)
[2022-08-18] MEDS: ARIPiprazole 5 MG TAB PO SCH (08:39)
[2022-08-18] MEDS: FOLIC ACID 1 MG TAB PO SCH (08:39)
[2022-08-18] MEDS: ACYCLOVIR 400 MG TAB PO SCH ×5 (08:39→22:38)
[2022-08-18] MEDS: TAMSULOSIN HCL 0.4 MG CAP PO SCH (08:39)
[2022-08-18] MEDS: METOPROLOL TARTRATE 25 MG TAB PO SCH ×2 (08:40→20:07)
[2022-08-18] MEDS: OSELTAMIVIR PHOSPHATE 75 MG CAP PO SCH ×2 (08:40→20:07)
[2022-08-18] MEDS: POTASSIUM CHLORIDE CRTAB 20 MEQ TABCR PO SCH (08:43)
[2022-08-18 08:56] LABS: Calcium 7.6 mg/dl (8.5-10.1); Creatinine Clr Calc Pharmacy 72.4 ml/min; Est GFR (African American) 88.5 ml/min; Est GFR (Non-African American) 76.4 ml/min; Potassium 4.1 mmol/L (3.5-5.1)
[2022-08-18 09:06] LABS: Basophils # (auto) 0.01 K/uL (0-0.2); Basophils % (auto) 0.2 %; Hematocrit (blood only) 31.5 % (40.1-51.0); Hemoglobin 10.4 g/dl (14.0-18.0); Immature Granulocytes # (auto) 0.04 K/uL (0.00-0.02); Immature Granulocytes % (auto) 0.7 %; Lymphocytes # (auto) 0.95 K/uL (1.2-3.4); Lymphocytes % (auto) 16.4 %; Mean Corpuscular Hemoglobin 32.2 pg (25.0-34.0); Mean Corpuscular Volume 97.5 fL (80.0-100.0); Mean Platelet Volume 11.1 fL (9.4-12.4); Monocytes # (auto) 0.44 K/uL (0.24-0.82); Monocytes % (auto) 7.6 %; Neutrophils # (auto) 4.37 K/uL (1.4-6.5); Neutrophils % (auto) 75.1 %; Platelet Count 202 K/uL (130-400); RDW Coefficient of Variation 16.3 % (11.5-14.5); RDW Standard Deviation 58.6 fL (36.4-46.3); Red Blood Count 3.23 M/uL (4.63-6.08); White Blood Count 5.81 K/ul (4.8-10.8)
[2022-08-18] MEDS: D5W AND NSS 1,000 ML IV SCH (10:15)
--- NOTE | 2022-08-18 14:25 | Hospitalist Progress Note ---
Date of Service August 18, 2022 Assessment & Plan (1) Fall: Plan: Supportive care. OT and PT assessments. Treat mild rhabdomyolysis and possible early herpes zoster eruption left facial area. Head CT scan and brain MRI scan are negative for acute CVA or hemorrhage. (2) Hypertension: Plan: Now stable. Continue current medical management (3) Elevated troponin: Plan: No trending. No acute EKG changes. No overt evidence of acute coronary syndrome. Awaiting cardiac echo report to rule out regional wall motion abnormalities. (4) Elevated CK: Plan: Due to mild rhabdomyolysis from lying on the floor. CK is now trending down. Continue IV fluids and daily labs. Monitor renal function (5) Influenza A: Plan: Currently on Tamiflu. Supportive care. Minimal symptoms currently (6) Depression: Plan: Stable. Continue Abilify (7) Peripheral neuropathy: Plan: Stable . Continue folic acid (8) GERD (gastroesophageal reflux disease): Plan: Continue PPI therapy (9) Chronic respiratory failure with hypoxia: Plan: Currently stable on baseline 3L . Continue pulm hygiene, prn DuoNebs, prn Robitussin (10) Anemia: Plan: Stable. Continue Vitamin D and folic acid (11) Temporal arteritis: Plan: Patient currently takes methotrexate and 5 mg PO pred daily. Steroid-dependent (12) Dyslipidemia: Plan: Hold statin until his CK reaches normal limits (13) Herpes zoster: Plan: Suspected early eruption left upper facial area. Acyclovir, day 2. Improving (14) Positive blood culture: Plan: 1 blood culture bottle was positive for gram positive cocci on admission. This is probably a contaminant. He does not appear to be septic. Blood cultures are reordered today, August 18 Plan To be determined. OT and PT assessments ordered. He may need transient SNF placement until he can return home. He lives alone. Hopeful discharge yet this week Admission and Anticipated Discharge Date Admission Date: August 16, 2022 Subjective Alert. No new problems. His left face appears better with acyclovir. I suspect this was early herpes zoster and is responding to current treatment. I spoke to his son Jacky who is in agreement that acyclovir treatment should continue. His admission blood culture grew probable staph epidermidis in 1 bottle. This is probably contaminant. Blood cultures will be repeated today however. He does not appear to be septic. CK continues to downtrend to 1600. Continue IV fluids for now. Creatinine stable. He may need short-term SNF placement before he can go back to his home. Review of Systems Review of Systems: Constitutional-no fever or chills ENT-no blurred vision, no double vision, no epistaxis, no sore throat Respiratory-no cough, no wheezing, no shortness of breath Cardiac-no palpitations, no chest pain, no syncope GI-no nausea, vomiting, diarrhea, melena, hematochezia -no urinary retention, no urinary incontinence, no dysuria, no hematuria Musculoskeletal-no joint pain, no muscle tenderness Skin-erythema/edema/tenderness in the left periorbital and left temporal area which may be early zoster eruption Neuro-no isolated weakness, no paresthesia, no weakness Psych-no depression, no anxiety Physical Exam Physical Exam: General-alert, no fevers, no chills HEENT-improving erythema and edema in the left periorbital and left temporal area which could be early zoster eruption. Pupils equal and reactive to light, extraocular muscles intact Neck-no lymphadenopathy or thyromegaly, trachea midline Chest-clear to auscultation percussion. No rales wheezing or rhonchi Cardiac-regular rate and rhythm, normal S1 and S2 Abdomen-normal bowel sounds, nontender, no hepatosplenomegaly Extremities-no cyanosis, clubbing, or edema Neuro-cranial nerves II through XII intact, motor and sensory function within normal limits, strength symmetrical , no focal deficits Psych-normal affect, normal mood Results & Data Results & Data ([facility]) Vital Signs (Past 12 Hours) Vital Signs Temp Pulse Pulse Resp BP BP Pulse Ox 08/18/22 08:45 08/18/22 13:47 96 08/18/22 11:10 36.8 C 81 20 96/62 L 95 08/18/22 11:36 08/18/22 08:06 90 18 119/57 L 94 08/18/22 08:10 75 08/18/22 04:33 08/18/22 03:28 37.4 C 94 H 18 102/65 93 Pulse Ox O2 Del Method O2 Flow Rate O2 Flow Rate 08/18/22 08:45 Nasal Cannula 2 08/18/22 13:47 Nasal Cannula 2 08/18/22 11:10 Nasal Cannula 2 08/18/22 11:36 93 2 08/18/22 08:06 Nasal Cannula 2 08/18/22 08:10 08/18/22 04:33 Room Air 08/18/22 03:28 Nasal Cannula 2 Laboratory Results 08/18/22 07:48 08/18/22 07:48 PG Care Time/CCT Total # of Minutes Spent Total Time Spent with Patient: Total time spent is greater than 50% in coordination of care (as documented) at patient's floor/unit and/or counseling patient: Coding Level of Care Code 19068 Subseq Hosp Care Lvl 3 Diagnoses Fall W19.XXXA Hypertension I10 Elevated troponin R77.8 Elevated CK R74.8 Influenza A J10.1 Depression F32.9 Peripheral neuropathy G62.9 GERD (gastroesophageal reflux disease) K21.9 Chronic respiratory failure with hypoxia J96.11 Anemia D64.9 Temporal arteritis M31.6 Dyslipidemia E78.5 Herpes zoster B02.9 Positive blood culture R78.81
[2022-08-19] MEDS: D5W AND NSS 1,000 ML IV SCH ×3 (02:55→20:58)
[2022-08-19] MEDS: ACYCLOVIR 400 MG TAB PO SCH ×5 (08:05→22:39)
[2022-08-19] MEDS: TAMSULOSIN HCL 0.4 MG CAP PO SCH (08:05)
[2022-08-19] MEDS: predniSONE 5 MG TAB PO SCH (08:05)
[2022-08-19] MEDS: METOPROLOL TARTRATE 25 MG TAB PO SCH ×2 (08:05→20:07)
[2022-08-19] MEDS: ARIPiprazole 5 MG TAB PO SCH (08:05)
[2022-08-19] MEDS: FOLIC ACID 1 MG TAB PO SCH (08:05)
[2022-08-19] MEDS: OSELTAMIVIR PHOSPHATE 75 MG CAP PO SCH ×2 (08:05→20:08)
[2022-08-19 09:13] LABS: Basophils # (auto) 0.02 K/uL (0-0.2); Basophils % (auto) 0.4 %; Eosinophils # (auto) 0.05 K/uL (0-0.50); Eosinophils % (auto) 0.9 %; Hematocrit (blood only) 30.9 % (40.1-51.0); Hemoglobin 10.1 g/dl (14.0-18.0); Immature Granulocytes # (auto) 0.09 K/uL (0.00-0.02); Immature Granulocytes % (auto) 1.6 %; Lymphocytes # (auto) 1.14 K/uL (1.2-3.4); Mean Corpuscular Hemoglobin 32.3 pg (25.0-34.0); Mean Corpuscular Hgb Conc 32.7 g/dL (32.0-36.0); Mean Corpuscular Volume 98.7 fL (80.0-100.0); Monocytes # (auto) 0.29 K/uL (0.24-0.82); Monocytes % (auto) 5.1 %; Platelet Count 164 K/uL (130-400); RDW Coefficient of Variation 16.4 % (11.5-14.5); Red Blood Count 3.13 M/uL (4.63-6.08); White Blood Count 5.69 K/ul (4.8-10.8)
[2022-08-19 09:41] LABS: BUN Creatinine Ratio 15.2 (10-20); Calcium 7.6 mg/dl (8.5-10.1); Creatinine Clr Calc Pharmacy 69.5 ml/min; Est GFR (African American) 84.2 ml/min; Est GFR (Non-African American) 72.6 ml/min; Potassium 3.6 mmol/L (3.5-5.1)
[2022-08-19] MEDS: POTASSIUM CHLORIDE CRTAB 20 MEQ TABCR PO SCH (10:12)
--- NOTE | 2022-08-19 13:43 | XCELERA ---
[id number]
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
[2022-08-19] MEDS: ACETAMINOPHEN 500 MG TAB PO PRN (21:34)
[2022-08-19] MEDS ORDERED: HYDROmorphone INJ 0.5 MG/0.5 ML SYR IV STA (23:02)
[2022-08-20] MEDS: ACETAMINOPHEN 500 MG TAB PO PRN ×2 (06:18→22:46)
[2022-08-20] MEDS: ACYCLOVIR 400 MG TAB PO SCH ×5 (06:18→22:45)
[2022-08-20 06:38] LABS: Basophils # (auto) 0.01 K/uL (0-0.2); Basophils % (auto) 0.2 %; Eosinophils # (auto) 0.13 K/uL (0-0.50); Eosinophils % (auto) 2.4 %; Hematocrit (blood only) 28.2 % (40.1-51.0); Hemoglobin 9.4 g/dl (14.0-18.0); Immature Granulocytes # (auto) 0.05 K/uL (0.00-0.02); Immature Granulocytes % (auto) 0.9 %; Lymphocytes # (auto) 1.44 K/uL (1.2-3.4); Mean Corpuscular Hemoglobin 32.9 pg (25.0-34.0); Mean Corpuscular Hgb Conc 33.3 g/dL (32.0-36.0); Mean Corpuscular Volume 98.6 fL (80.0-100.0); Mean Platelet Volume 11.1 fL (9.4-12.4); Monocytes % (auto) 9.4 %; Neutrophils % (auto) 60.1 %; Platelet Count 159 K/uL (130-400); RDW Coefficient of Variation 15.9 % (11.5-14.5); RDW Standard Deviation 57.5 fL (36.4-46.3); Red Blood Count 2.86 M/uL (4.63-6.08); White Blood Count 5.33 K/ul (4.8-10.8)
[2022-08-20 07:06] LABS: BUN Creatinine Ratio 15.1 (10-20); Calcium 7.6 mg/dl (8.5-10.1); Est GFR (African American) 96.3 ml/min; Est GFR (Non-African American) 83.1 ml/min; Potassium 3.9 mmol/L (3.5-5.1)
[2022-08-20] MEDS: TAMSULOSIN HCL 0.4 MG CAP PO SCH (08:31)
[2022-08-20] MEDS: METOPROLOL TARTRATE 25 MG TAB PO SCH ×2 (08:31→20:27)
[2022-08-20] MEDS: FOLIC ACID 1 MG TAB PO SCH (08:32)
[2022-08-20] MEDS: ARIPiprazole 5 MG TAB PO SCH (08:32)
[2022-08-20] MEDS: OSELTAMIVIR PHOSPHATE 75 MG CAP PO SCH ×2 (08:32→20:27)
[2022-08-20] MEDS: predniSONE 5 MG TAB PO SCH (08:33)
[2022-08-20] MEDS: POTASSIUM CHLORIDE CRTAB 20 MEQ TABCR PO SCH (08:59)
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
[2022-08-20] MEDS: guaiFENesin SUGAR FREE 200 MG/10 ML UDC PO PRN (20:28)
[2022-08-20] MEDS ORDERED: HYDROmorphone INJ 0.5 MG/0.5 ML SYR IV PRN (20:44)
[2022-08-20] MEDS ORDERED: MELATONIN 3 MG TAB PO PRN (20:45)
[2022-08-21] MEDS: ACYCLOVIR 400 MG TAB PO SCH ×5 (06:25→22:33)
[2022-08-21] MEDS: FOLIC ACID 1 MG TAB PO SCH (08:27)
[2022-08-21] MEDS: TAMSULOSIN HCL 0.4 MG CAP PO SCH (08:27)
[2022-08-21] MEDS: METOPROLOL TARTRATE 25 MG TAB PO SCH ×2 (08:27→21:16)
[2022-08-21] MEDS: ARIPiprazole 5 MG TAB PO SCH (08:27)
[2022-08-21] MEDS: predniSONE 5 MG TAB PO SCH (08:28)
[2022-08-21] MEDS: POTASSIUM CHLORIDE CRTAB 20 MEQ TABCR PO SCH (08:28)
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
[2022-08-21] MEDS ORDERED: KETOROLAC TROMETHAMINE 15 MG/ML VIAL IV ONE (15:40)
[2022-08-21] MEDS: traMADol HCL 50 MG TABLET PO PRN (21:16)
[2022-08-22] MEDS: traMADol HCL 50 MG TABLET PO PRN ×3 (05:08→19:56)
[2022-08-22] MEDS: ACYCLOVIR 400 MG TAB PO SCH ×2 (06:29→11:26)
[2022-08-22 07:05] LABS: Calcium 7.9 mg/dl (8.5-10.1); Creatinine Clr Calc Pharmacy 82.9 ml/min; Est GFR (African American) 97.7 ml/min; Est GFR (Non-African American) 84.3 ml/min; Potassium 3.9 mmol/L (3.5-5.1)
[2022-08-22 07:52] LABS: Hematocrit (blood only) 30.4 % (40.1-51.0); Hemoglobin 9.9 g/dl (14.0-18.0); Mean Corpuscular Hemoglobin 32.1 pg (25.0-34.0); Mean Corpuscular Hgb Conc 32.6 g/dL (32.0-36.0); Mean Corpuscular Volume 98.7 fL (80.0-100.0); Mean Platelet Volume 10.6 fL (9.4-12.4); Platelet Count 216 K/uL (130-400); RDW Coefficient of Variation 15.9 % (11.5-14.5); RDW Standard Deviation 57.4 fL (36.4-46.3); Red Blood Count 3.08 M/uL (4.63-6.08)
[2022-08-22] MEDS: ARIPiprazole 5 MG TAB PO SCH (08:50)
[2022-08-22] MEDS: POTASSIUM CHLORIDE CRTAB 20 MEQ TABCR PO SCH (08:51)
[2022-08-22] MEDS: predniSONE 5 MG TAB PO SCH (08:51)
[2022-08-22] MEDS: METOPROLOL TARTRATE 25 MG TAB PO SCH ×2 (08:51→19:56)
[2022-08-22] MEDS: FOLIC ACID 1 MG TAB PO SCH (08:51)
[2022-08-22] MEDS: TAMSULOSIN HCL 0.4 MG CAP PO SCH (08:51)
--- NOTE | 2022-08-22 13:31 | Hospitalist Progress Note ---
Date of Service August 22, 2022 Assessment & Plan (1) Fall: Plan: mechanical fall at home, said that was his first time falling Supportive care. OT and PT assessments. Very mild rhabdomyolysis has resolved Working on SNF/rehabstable when bed available (2) Hypertension: Plan: Stable, Readings have been acceptable, continue current management (3) Elevated troponin: Plan: No trending. No acute EKG changes. No overt evidence of acute coronary syndrome. Echo reassuring (4) Elevated CK: Plan: Due to mild rhabdomyolysis from lying on the floor. For all intents and purposes this has resolved (5) Influenza A: Plan: Resolving, had a course of Tamiflu (6) Depression: Plan: Stable. Continue Abilify (7) Peripheral neuropathy: Plan: Stable . Continue folic acid (8) GERD (gastroesophageal reflux disease): Plan: Continue PPI therapy (9) Chronic respiratory failure with hypoxia: Plan: Currently stable on baseline O2. Continue pulm hygiene, prn DuoNebs, prn Robitussin (10) Anemia: Plan: Stable. Continue Vitamin D and folic acid (11) Temporal arteritis: Plan: Patient currently takes methotrexate and 5 mg PO pred daily. Steroid-dependent (12) Dyslipidemia: Plan: Can resume statin at discharge (13) Herpes zoster: Plan: Likely a bruise from the fall, no evidence of herpes (14) Positive blood culture: Plan: 1 blood culture bottle was positive for gram positive cocci on admission. This is probably a contaminant. He does not appear to be septic. Follow-up blood cultures ordered yesterday are showing no growth to date Plan Stable for SNF/rehab emphasis whenever bed available Admission and Anticipated Discharge Date Admission Date: August 16, 2022 Subjective patient seen and examined, no new complaints, says back pain is better Review of Systems Review of Systems: All systems reviewed are negative, apart from the ones contained in the history. Physical Exam Physical Exam: The patient is awake, alert and oriented 3, well developed and well nourished, normocephalic and atraumatic, lying in bed and in no acute distress. HEENT--PERRL, EOMI, mucous membranes and oropharynx mildly dry Neck--supple. No JVD. No bruits. Thyroid normal, trachea midline, no adenopathy. Heart--normal S1 and S2. No murmurs, rubs or gallops. Lungs--clear bilaterally, no respiratory distress, no accessory muscle use. Abdomen--normal bowel sounds and soft. Mild epigastric and left sided abdominal pain Extremities--no cyanosis or clubbing. No edema. Dermatologic--normal skin turgor, normal color, no abnormal lymph nodes, no rash. Neurologic--cranial nerves II through XII grossly intact. Rheumatologic--normal range of motion. Psychiatric--normal affect. Results & Data Results & Data ([facility]) Vital Signs (Past 12 Hours) Vital Signs Temp Pulse Pulse Resp BP Pulse Ox O2 Del Method 08/22/22 11:50 98.1 F 70 19 111/68 98 Nasal Cannula 08/22/22 10:00 Nasal Cannula 08/22/22 07:59 98.8 F 84 19 119/66 97 Nasal Cannula 08/22/22 07:27 94 H 08/22/22 04:00 98.2 F 88 18 126/80 94 Nasal Cannula O2 Flow Rate 08/22/22 11:50 3 08/22/22 10:00 2 08/22/22 07:59 3 08/22/22 07:27 08/22/22 04:00 3 PG Care Time/CCT Total # of Minutes Spent Total Time Spent with Patient: Total time spent is greater than 50% in coordination of care (as documented) at patient's floor/unit and/or counseling patient: Coding Level of Care Code 47550 SUB INP/OBS CARE 2/35MIN Diagnoses Fall W19.XXXA Hypertension I10 Elevated troponin R77.8 Elevated CK R74.8 Influenza A J10.1 Depression F32.9 Peripheral neuropathy G62.9 GERD (gastroesophageal reflux disease) K21.9 Chronic respiratory failure with hypoxia J96.11 Anemia D64.9 Temporal arteritis M31.6 Dyslipidemia E78.5 Herpes zoster B02.9 Positive blood culture R78.81 Time Spent (min) 35
[2022-08-23] MEDS: traMADol HCL 50 MG TABLET PO PRN ×3 (01:58→21:53)
[2022-08-23] MEDS ORDERED: CALCIUM CARBONATE 500 MG CHEWABLE TAB PO ONE (05:02)
[2022-08-23 05:39] LABS: Hematocrit (blood only) 31.2 % (40.1-51.0); Hemoglobin 10.5 g/dl (14.0-18.0); Mean Corpuscular Hemoglobin 32.6 pg (25.0-34.0); Mean Corpuscular Hgb Conc 33.7 g/dL (32.0-36.0); Mean Corpuscular Volume 96.9 fL (80.0-100.0); Mean Platelet Volume 10.4 fL (9.4-12.4); Platelet Count 281 K/uL (130-400); RDW Coefficient of Variation 15.9 % (11.5-14.5); RDW Standard Deviation 55.8 fL (36.4-46.3); Red Blood Count 3.22 M/uL (4.63-6.08); White Blood Count 9.26 K/ul (4.8-10.8)
[2022-08-23 06:08] LABS: Troponin I High Sensitivity 16.6 pg/ml (0-20)
[2022-08-23 06:23] LABS: BUN Creatinine Ratio 8.8 (10-20); Est GFR (African American) 99.2 ml/min; Est GFR (Non-African American) 85.6 ml/min; Potassium 3.7 mmol/L (3.5-5.1)
[2022-08-23] MEDS: POTASSIUM CHLORIDE CRTAB 20 MEQ TABCR PO SCH (08:59)
[2022-08-23] MEDS: predniSONE 5 MG TAB PO SCH (08:59)
[2022-08-23] MEDS: TAMSULOSIN HCL 0.4 MG CAP PO SCH (08:59)
[2022-08-23] MEDS: METOPROLOL TARTRATE 25 MG TAB PO SCH ×2 (08:59→21:47)
[2022-08-23] MEDS: ARIPiprazole 5 MG TAB PO SCH (09:00)
[2022-08-23] MEDS: FOLIC ACID 1 MG TAB PO SCH (09:00)
[2022-08-23] MEDS: guaiFENesin SUGAR FREE 200 MG/10 ML UDC PO PRN (09:00)
--- NOTE | 2022-08-23 13:35 | Hospitalist Progress Note ---
Date of Service August 23, 2022 Assessment & Plan (1) Fall: Plan: mechanical fall at home, said that was his first time falling Supportive care. OT and PT assessments. Very mild rhabdomyolysis has resolved Working on SNF/rehabstable when bed available (2) Hypertension: Plan: Stable, Readings have been acceptable, continue current management (3) Elevated troponin: Plan: No trending. No acute EKG changes. No overt evidence of acute coronary syndrome. Echo reassuring (4) Elevated CK: Plan: Due to mild rhabdomyolysis from lying on the floor. For all intents and purposes this has resolved (5) Influenza A: Plan: Resolving, completed a course of Tamiflu (6) Depression: Plan: Stable. Continue Abilify (7) Peripheral neuropathy: Plan: Stable . Continue folic acid (8) GERD (gastroesophageal reflux disease): Plan: Continue PPI therapy (9) Chronic respiratory failure with hypoxia: Plan: Currently stable on baseline O2. Continue pulm hygiene, prn DuoNebs, prn Robitussin (10) Anemia: Plan: Stable. Continue Vitamin D and folic acid (11) Temporal arteritis: Plan: Patient currently takes methotrexate and 5 mg PO pred daily. Steroid-dependent (12) Dyslipidemia: Plan: Can resume statin at discharge (13) Herpes zoster: Plan: Likely a bruise from the fall, no evidence of herpes (14) Positive blood culture: Plan: 1 blood culture bottle was positive for gram positive cocci on admission. This is probably a contaminant. He does not appear to be septic. Follow-up blood cultures ordered yesterday are showing no growth to date Plan Stable for SNF/rehab emphasis whenever bed available Admission and Anticipated Discharge Date Admission Date: August 16, 2022 Subjective patient seen and examined, no new complaints, says back pain is better, denies fever or chills Review of Systems Review of Systems: All systems reviewed are negative, apart from the ones contained in the history. Physical Exam Physical Exam: The patient is awake, alert and oriented 3, well developed and well nourished, normocephalic and atraumatic, lying in bed and in no acute distress. HEENT--PERRL, EOMI, mucous membranes and oropharynx mildly dry Neck--supple. No JVD. No bruits. Thyroid normal, trachea midline, no eitan opathy. Heart--normal S1 and S2. No murmurs, rubs or gallops. Lungs--clear bilaterally, no respiratory distress, no accessory muscle use. Abdomen--normal bowel sounds and soft. Mild epigastric and left sided abdominal pain Extremities--no cyanosis or clubbing. No edema. Dermatologic--normal skin turgor, normal color, no abnormal lymph nodes, no rash. Neurologic--cranial nerves II through XII grossly intact. Rheumatologic--normal range of motion. Psychiatric--normal affect. Results & Data Results & Data ([facility]) Vital Signs (Past 12 Hours) Vital Signs Temp Pulse Pulse Resp BP Pulse Ox O2 Del Method 08/23/22 11:32 97.7 F 75 18 116/73 96 Room Air 08/23/22 10:35 Nasal Cannula 08/23/22 08:02 98.4 F 76 19 127/76 97 Nasal Cannula 08/23/22 07:18 76 08/23/22 04:00 98.4 F 73 18 122/72 94 Nasal Cannula O2 Flow Rate 08/23/22 11:32 08/23/22 10:35 2 08/23/22 08:02 2 08/23/22 07:18 08/23/22 04:00 2 PG Care Time/CCT Total # of Minutes Spent Total Time Spent with Patient: Total time spent is greater than 50% in coordination of care (as documented) at patient's floor/unit and/or counseling patient: Coding Level of Care Code 65674 SUB INP/OBS CARE 2/35MIN Diagnoses Fall W19.XXXA Hypertension I10 Elevated troponin R77.8 Elevated CK R74.8 Influenza A J10.1 Depression F32.9 Peripheral neuropathy G62.9 GERD (gastroesophageal reflux disease) K21.9 Chronic respiratory failure with hypoxia J96.11 Anemia D64.9 Temporal arteritis M31.6 Dyslipidemia E78.5 Herpes zoster B02.9 Positive blood culture R78.81 Time Spent (min) 35
[2022-08-24] MEDS: traMADol HCL 50 MG TABLET PO PRN (02:19)
[2022-08-24] MEDS: ARIPiprazole 5 MG TAB PO SCH (08:56)
[2022-08-24] MEDS: METOPROLOL TARTRATE 25 MG TAB PO SCH (08:56)
[2022-08-24] MEDS: POTASSIUM CHLORIDE CRTAB 20 MEQ TABCR PO SCH (08:56)
[2022-08-24] MEDS: FOLIC ACID 1 MG TAB PO SCH (08:56)
[2022-08-24] MEDS: TAMSULOSIN HCL 0.4 MG CAP PO SCH (08:56)
[2022-08-24] MEDS: predniSONE 5 MG TAB PO SCH (08:57)
[2022-08-24] MEDS: guaiFENesin SUGAR FREE 200 MG/10 ML UDC PO PRN (08:57)
--- NOTE | 2022-08-24 15:18 | Discharge Summary ---
Date of Service August 24, 2022 Admission HPI Per Admitting Provider Gio is a 77yowm with h/o depression, COPD on O2, HFpEF (LVEF of > 70% as of 02/18/21) , cor pulmonale, sleep apnea, GERD, Temporal Arteritis on MTX, Ambulatory dysfunction in WC, Peripheral neuropathy, chronic pancreatitis, HTN, DLD, and Prostate CA who presented to the [facility] ED on 08/16/21 with a chief complaint of being found down by his son today. In the ED the patient was found to be afebrile, hemodynamically stable at 98/60, HR of 94, and stable on 3L NC. Labs were remarkable for a WBC WNL, stable Hgb and platelets, stable Cr at 0.89, corrected calcium of 9.0, otherwise stable electrolytes, initial High Sensitivity trop of 302 with initial CK level of 3517, TSH of 2.302, Covid and RSV negative but Influenza A positive, CT of the head was read as "No acute intracranial abnormality. Left periorbital and left scalp swelling.". Ct of the cervical spine was read as "No fractures within the cervical spine.". Chest xray was read as "Stable low lung volumes and chronic interstitial changes. No acute process within the chest.". CT of the face was read as "1. No fractures within the maxillofacial region. 2. Left periorbital soft tissue swelling. 3. Acute paranasal sinusitis". Xrays of the right hip and pelvis was read as "No fracture or dislocation within the pelvis or hips.". CT of the lumbar spine was read as "1. No acute fractures within the lumbar spine. 2. Old mild superior endplate compression deformity at L2. 3. Degenerative changes as described above.". Prior to admission the patient was given 1g IV tylenol, 1L NSS bolus, and 75 mg PO Tamiflu. At the time of the exam the patient was lying in bed sleeping comfortably, I was able to wake him by calling his name. Prior to going into his room I spoke with his Son to obtain more history. His son states that the patient's last known well was yesterday between 3:15-5pm. His son last spoke to the patient at 3:15 yesterday. The patient has [employer] come into his home daily but there is a time between 3-5pm where he has no caregivers and his by himself. His son states that he went over to his father's home ([facility]) around noon to check on him. He found his father, face-down, it appeared as though his father had vomited and also had a bowel movement and urinated while down. His son states that his father seemed a little more confused yesterday, like he does when he gets a UTI. He confirmed that his father is a DNR/DNI and has a living will. At the time of the exam the patient was easy to wake and was in no acute distress. It took a few minutes for him to full wake, he denied any discomfort at the start of my exam. When asked, the patient states he does remember the events prior to his fall. He states that he got up yesterday afternoon to walk to the bathroom and started to feel dizzy. He fell to the ground and said that he landed on his buttocks, he is unable to give me much more information besides that. He denies chest pain, SOB, abdominal pain, nausea, diarrhea, dysuria, and hematuria. Principal Diagnosis fall Discharge Exam The patient is awake, alert and oriented 3, well developed and well nourished, normocephalic and atraumatic, lying in bed and in no acute distress. HEENT--PERRL, EOMI, mucous membranes and oropharynx mildly dry Neck--supple. No JVD. No bruits. Thyroid normal, trachea midline, no adenopathy. Heart--normal S1 and S2. No murmurs, rubs or gallops. Lungs--clear bilaterally, no respiratory distress, no accessory muscle use. Abdomen--normal bowel sounds and soft. Mild epigastric and left sided abdominal pain Extremities--no cyanosis or clubbing. No edema. Dermatologic--normal skin turgor, normal color, no abnormal lymph nodes, no rash. Neurologic--cranial nerves II through XII grossly intact. Rheumatologic--normal range of motion. Psychiatric--normal affect. Discharge Data Allergies Allergy/AdvReac Type Severity Reaction Status Date / Time No Known Allergies Allergy Unknown Verified 08/16/22 15:43 Consultations 08/16/22 15:56 ED Decision to Admit Stat Ordered Studies 08/16/22 13:37 CT cervical spine wo con Stat CT head/brain wo con Stat 08/16/22 13:38 CT facial bones wo con Stat 08/16/22 14:09 CT lumbar spine wo con Stat 08/17/22 00:00 MR brain wo con Routine Hospital Course (1) Fall: mechanical fall at home, said that was his first time falling Supportive care. OT and PT assessments. Very mild rhabdomyolysis has resolved Working on SNF/rehabstable when bed available (2) Hypertension: Stable, Readings have been acceptable, continue current management (3) Elevated troponin: No trending. No acute EKG changes. No overt evidence of acute coronary syndrome. Echo reassuring (4) Elevated CK: Due to mild rhabdomyolysis from lying on the floor. For all intents and purposes this has resolved (5) Influenza A: Resolving, completed a course of Tamiflu (6) Depression: Stable. Continue Abilify (7) Peripheral neuropathy: Stable . Continue folic acid (8) GERD (gastroesophageal reflux disease): Continue PPI therapy (9) Chronic respiratory failure with hypoxia: Currently stable on baseline O2. Continue pulm hygiene, prn DuoNebs, prn Robitussin (10) Anemia: Stable. Continue Vitamin D and folic acid (11) Temporal arteritis: Patient currently takes methotrexate and 5 mg PO pred daily. Steroid-dependent (12) Dyslipidemia: Can resume statin at discharge (13) Herpes zoster: Likely a bruise from the fall, no evidence of herpes (14) Positive blood culture: 1 blood culture bottle was positive for gram positive cocci on admission. This is probably a contaminant. He does not appear to be septic. Follow-up blood cultures ordered yesterday are showing no growth to date Plan Stable for SNF/rehab emphasis whenever bed available Total Time Total Time Spent Total Time Spent (In Minutes): 35 Discharge Plan Discharge Items Patient Disposition: Transfer Halfway Fac Reason For Visit: FALL Discharge Diagnosis: Fall, Rhabdomyolysis Activity: Resume your previous activity Non-emergency contact: Primary Care Provider Call non-emergency contact if: you have any medication questions Follow-up/Referrals: Daniel Patten MD [Primary Care Provider] - Diet: Regular Addtl Attending Provider Instructions: please make appointment to follow up with your regular PCP Pending Studies at Discharge: No Stand-Alone Forms: My [facility] Skilled Items Patient informed of condition?: Yes DNR: Yes Discharge Level of Care: Skilled Communicable Disease: No Discharge Prognosis: Stable Lines: None Urinary Catheter: No Medications and DC Order Prescriptions: Continued cholecalciferol (vitamin D3) [Vitamin D3] 10 mcg (400 unit) tablet 800 unit PO QAM Qty: 90 3RF (DME) Wheelchair (Manual) Device See Rx Instructions .Route Qty: 1 0RF Rx Instructions: As directed folic acid 1 mg tablet 1 mg PO QAM Qty: 90 1RF metoprolol tartrate 25 mg tablet 25 mg PO BID Qty: 180 3RF spironolactone 25 mg tablet 25 mg PO QAM Qty: 90 3RF furosemide 20 mg tablet 20 mg PO QAM Qty: 90 3RF simvastatin 40 mg tablet 40 mg PO QPM Qty: 90 3RF potassium chloride 20 mEq tablet extended release 20 meq PO QAM Qty: 90 3RF prednisone 5 mg tablet 5 mg PO DAILY Qty: 90 0RF tamsulosin 0.4 mg capsule 0.4 mg PO QAM Qty: 90 0RF methotrexate sodium 2.5 mg tablet See Rx Instructions .ROUTE .COMPLEX Qty: 78 1RF Dose Instruction: TAKE 3 TABLETS ON WEDNESDAY MORNING AND 3 TABLETS ON WEDNESDAY AFTERNOON (TOTAL DOSE OF 15MG WEEKLY ON FRIDAYS) Rx Instructions: TAKE 3 TABLETS ON WEDNESDAY MORNING AND 3 TABLETS ON WEDNESDAY AFTERNOON (TOTAL DOSE OF 15MG WEEKLY ON FRIDAYS) aripiprazole 5 mg tablet 5 mg PO QAM Discharge Orders: Discharge Order (Routine); Ordered 08/24/22 Ordered By: Tyra Abraham Admission Data Admit Date/Time: 08/16/22 16:19 Attending Provider: Tyra Abraham Admit Provider: Hi García Primary Care Provider: Daniel Patten Other Providers: Hi García ; Angie Knox [facility] Other Interventions: Discharge Summary Assessment (RN) Last Done: 08/24/22 11:36 Coding Level of Care Code HOSP INP/OBS DISCH >30 MIN Diagnoses Fall W19.XXXA Hypertension I10 Elevated troponin R77.8 Elevated CK R74.8 Influenza A J10.1 Depression F32.9 Peripheral neuropathy G62.9 GERD (gastroesophageal reflux disease) K21.9 Chronic respiratory failure with hypoxia J96.11 Anemia D64.9 Temporal arteritis M31.6 Dyslipidemia E78.5 Herpes zoster B02.9 Positive blood culture R78.81 Time Spent (min) 35
== END 2022-08-24 13:33 | DRG 558 ==
LOC: ED 13:07 → EDINP 16:19 → SUATTDRO 16:19 → 2W 21:12
DX: E86.0 Dehydration; J44.9 Chronic obstructive pulmonary disease, unspecified; I50.32 Chronic diastolic (congestive) heart failure; W18.39XA Other fall on same level, initial encounter; K21.9 Gastro-esophageal reflux disease without esophagitis; J96.11 Chronic respiratory failure with hypoxia; M31.6 Other giant cell arteritis; R74.8 Abnormal levels of other serum enzymes; J10.1 Influenza due to other identified influenza virus with other respiratory manifestations; Y92.039 Unspecified place in apartment as the place of occurrence of the external cause; R29.6 Repeated falls; G62.9 Polyneuropathy, unspecified; Z87.891 Personal history of nicotine dependence; I10 Essential (primary) hypertension; D64.9 Anemia, unspecified; M62.82 Rhabdomyolysis; E78.5 Hyperlipidemia, unspecified